=== PATIENT | female | born 1950 | race Caucasian/White ===

== ENCOUNTER 2024-03-26 09:39 | Inpatient (IN) | payer MEDICARE, MEDICAID, SELFPAY ==
[2024-03-26] VITALS (28 sets, daily range): BP systolic 90–154; BP diastolic 31–66; PULSE 72–93; RESP 16–29; TEMP 36.3–36.8; O2SAT 90–98; BMI 23.4
--- NOTE | ~2024-03-26 | US_ITS ---
EXAMINATION: US ABDOMEN LIMITED CLINICAL INFORMATION: Elevated LFTs. COMPARISON: None available. TECHNIQUE: Real-time imaging of the right upper quadrant abdominal viscera. FINDINGS: PANCREAS: Not visualized due to overlying bowel gas LIVER: Diffuse increased echogenicity. No discrete lesion. The liver is normal in size. The liver contour is normal. No focal hepatic lesion. There is no intrahepatic biliary duct dilatation seen. GALLBLADDER: Gallstones. No inflammatory changes. No sonographic Nam's sign. COMMON BILE DUCT: Normal in caliber measuring 0.2 cm in diameter. RIGHT KIDNEY: Atrophic No hydronephrosis. No renal calculi or focal parenchymal lesions. The kidney measures 7.3 cm in maximum dimension. FREE FLUID: None. US/US abdomen limited IMPRESSION: 1. Gallstones without acute inflammatory changes. No biliary ductal dilatation. Changes of hepatic steatosis. 2. Pancreas not visualized due to overlying bowel gas. 3. Atrophic right kidney. Electronically signed by: Rj Hopper MD 03/26/2024 07:34 PM [facility]
--- NOTE | ~2024-03-26 | XR_ITS ---
EXAMINATION: XR CHEST CLINICAL INFORMATION: Shortness of breath. COMPARISON: Most recent chest radiograph dated 03/26/2024. TECHNIQUE: Frontal view of the chest was obtained. FINDINGS: Diffuse interstitial prominence with patchy bilateral airspace opacities, increased within the bilateral upper lobes when compared to the prior examination. Trace left-sided pleural effusion, unchanged. No right-sided pleural effusion. No pneumothorax. Stable cardiomediastinal silhouette. XR/XR chest 1V IMPRESSION: Diffuse interstitial prominence with patchy bilateral airspace opacities, increased within the bilateral upper lobes when compared to the prior examination. Trace left-sided pleural effusion, unchanged. Electronically signed by: Brown Martínez MD 04/01/2024 02:43 PM [facility]
--- NOTE | ~2024-03-26 | XR_ITS ---
EXAMINATION: XR CHEST CLINICAL INFORMATION: Tachypnea. COMPARISON: Prior chest radiographs, most recently 04/01/2024. TECHNIQUE: Frontal view of the chest was obtained. FINDINGS: Accounting for patient rotation, the heart, great vessels, pulmonary vasculature and mediastinum are stable. There is a bilateral interstitial appearance with bat wing appearance. This is stable from the comparison examination of the same day. A small left pleural effusion is seen. No right pleural effusion is seen. There is no pneumothorax. No acute osseous abnormality is seen. There is bony demineralization. XR/XR chest 1V IMPRESSION: 1. There is a stable bilateral interstitial pattern, with appearance favoring moderate pulmonary edema. A bilateral pneumonia and ARDS are less likely differential considerations. Please correlate clinically. Recommend radiographic follow-up to full clearance. 2. A small left pleural effusion is seen. Electronically signed by: Scott Holden MD 04/01/2024 10:16 PM [facility]
--- NOTE | ~2024-03-26 | XR_ITS ---
EXAMINATION: XR CHEST CLINICAL INFORMATION: Shortness of breath COMPARISON: Chest radiograph dated 07/29/2019 TECHNIQUE: Frontal view of the chest was obtained. FINDINGS: Patchy airspace opacities in the bilateral lower lobes, greater on the left. Increased interstitial lung markings throughout both lungs. Trace left pleural effusion. No pneumothorax. The cardiac silhouette is normal in size. Atheromatous aortic knob. No acute osseous abnormality. XR/XR chest 1V IMPRESSION: 1. Patchy airspace opacities in the bilateral lower lobes, greater on the left, may represent atelectasis or infectious/inflammatory process. 2. Increased interstitial lung markings throughout both lungs, which may represent pulmonary edema. 3. Trace left pleural effusion. Electronically signed by: Winsome De La Torre MD 03/26/2024 01:13 PM [facility]
--- NOTE | ~2024-03-26 | XR_ITS ---
EXAMINATION: XR CHEST CLINICAL INFORMATION: pulm effusion COMPARISON: X-ray dated April 01, 2024. TECHNIQUE: Frontal view of the chest was obtained. FINDINGS: Prominence of the interstitial markings patchy and confluent opacities in the upper lobes. Haziness in the lower hemithoraces. No pneumothorax. Indistinct margins in the cardiac mediastinal silhouette. Calcified plaque thoracic aortic arch. Osteopenia versus osteoporosis. Multilevel thoracic spondylosis. XR/XR chest 1V IMPRESSION: Pulmonary edema and bilateral small to pleural effusions. Superimposed multifocal pneumonia cannot be excluded. Electronically signed by: Wes Ga MD 04/04/2024 11:46 AM EST
--- NOTE | 2024-03-26 10:01 | ECG_ITS ---
Test Reason : SOB Blood Pressure : / mmHG Vent. Rate : 070 BPM Atrial Rate : 070 BPM P-R Int : 174 ms QRS Dur : 086 ms QT Int : 412 ms P-R-T Axes : 026 -17 049 degrees QTc Int : 444 ms Normal sinus rhythm Septal infarct (cited on or before 29-JUL-2019) Abnormal ECG When compared with ECG of 29-JUL-2019 04:58, Previous ECG has undetermined rhythm, needs review Questionable change in initial forces of Septal leads ST less depressed in Lateral leads Nonspecific T wave abnormality, worse in Lateral leads Referred By: Demar Erazo Electronically Signed By:RAMSES PATEL MD
--- NOTE | 2024-03-26 10:05 | ED_ITS ---
HPI - SOB/Dyspnea General Chief Complaint: Dyspnea Stated Complaint: DIFFICULTY BREATHNG Time Seen by Provider: 03/26/24 09:52 Source: patient and EMS Mode of arrival: EMS Limitations: physical limitation History of Present Illness ED Provider: DR. Erazo HPI Narrative: 73-year-old female came in by ambulance for shortness of breath and hypoxic in the 80s on room air from the senior living, patient is complaining of shortness of breath, no fever, no chills patient is a poor historian however she said never had history of lung disease in the past, patient vomited twice at the senior living yesterday with a concern of aspiration pneumonia. EMS reported O2 sat of 86 % on room air in the emergency department patient improved with 2 L of nasal cannula to 92 %. Related Data Allergies Allergy/AdvReac Type Severity Reaction Status Date / Time tuberculin, purified protein Allergy Unknown UNK Unverified 03/26/24 12:11 deriva [TB TEST] aspirin [ASA] AdvReac Unknown GI UPSET, Unverified 02/02/20 17:19 stomach upset Review of Systems 2 Review of Systems: All other systems are reviewed and are negative Constitutional: Reports as per HPI and Reports no additional constitutional complaints Eyes: Reports as per HPI and Reports no additional eye complaints Reports system reviewed and no additional complaints, except as documented Cardiovascular: Reports as per HPI and Reports no additional cardiovascular complaints Respiratory: Reports as per HPI and Reports no additional respiratory complaints Gastrointestinal: Reports as per HPI and Reports no additional gastrointestinal complaints Genitourinary: Reports no additional female genitourinary complaints Musculoskeletal: Reports no additional musculoskeletal complaints Skin/Breast: Reports system reviewed and no additional complaints, except as docu Psychiatric: Reports no additional psychiatric complaints Endocrine: Reports no additional endocrine complaints Hematologic/Lymphatic: Reports no additional hematologic/lymphatic complaints Allergic/Immunologic: Reports no additional allergic/immunologic complaints Reports system reviewed and no additional complaints, except as documented and Reports Abnormal speech present [facility] Social History Social History Smoked in Last 30 Days: No Use of substances other than those prescribed or required for medical reasons: No Advance Directives: No Advance Directives Information Provided: No Physical Exam 2 Vital Signs: Vital Signs: Last Vital Signs Temp 97.6 F 03/26/24 13:01 Pulse 85 03/26/24 13:01 Resp 29 H 03/26/24 13:01 BP 138/50 L 03/26/24 13:15 Pulse Ox 91 L 03/26/24 13:01 O2 Del Method Nasal Cannula 03/26/24 13:01 O2 Flow Rate 4 03/26/24 13:01 BMI result Body Mass Index 23.4 Vital signs have been reviewed and appear to be correct. Blood pressure elevated. Heart rate normal. Respiratory rate normal. Temperature normal. Oxygen saturation normal. Appearance: Alert. Oriented X3. No acute distress. Head: Normal external exam. Normocephalic. Atraumatic. No Gates signs noted. No raccoon eyes noted Eyes: PERRLA. EOMI. Conjunctiva and sclera normal. Eyelids normal. ENT: TM's Normal. Pharynx normal. Uvula midline. Moist mucous membranes. No trismus noted. No drooling noted. No muffled voice noted. Neck: Normal inspection. Neck supple. FROM. No adenopathy. Thyroid Normal. No meningeal signs. No neck mass noted. CVS: Normal heart rate and rhythm. Heart sound normal. No murmurs noted. Pulses normal throughout. Respiratory: No respiratory distress. Painless inspiration. Diminished breathing sounds bilaterally, prolonged expiration with expiratory wheezing, Chest nontender. No accessory muscle usage noted or decreased air movement noted. Abdomen: Soft and nontender. Bowel sounds normal in all 4 quadrants. No distention noted. No organomegaly noted. No visible injury noted. Rectal exam: Brown stool trace guaiac positive. Back: No CVA tenderness. Full range of motion noted. Skin: Skin warm and dry. Normal skin color. Normal skin turgor. No rashes/lesions/lacerations noted. Extremities: No lower extremity edema. Extremities exhibit normal range of motion. Extremities nontender. Neuro: Oriented X 3. Cranial nerve exam: II-XII are grossly intact No motor deficit. No sensory deficit. Reflexes normal. Course Reevaluation(s) Reevaluation #1: FOCUSED EXAM: a 73-year-old female brought in from senior living with hypoxia and difficulty breathing, vomited yesterday at the senior living likely aspiration pneumonia, patient became hypotensive received 30 cc/kg, lactic acidosis above 5, hypoxic improving with 5 L of oxygen, severe anemia, guaiac positive but brown stool. 1. Antibiotic ceftriaxone and doxycycline. 2. Continue hydration and serial lactic acid. 3. Blood transfusion for severe anemia. 4.Continue with 5 L supplemental oxygen. 5. Cautious diuresis 6. ICU admission case discussed with Dr. Essie Clarke. Time: 13:46 Medications Administered Discontinued Medications Generic Name Dose Route Start Last Admin Trade Name Freq PRN Reason Stop Dose Admin Ceftriaxone Sodium 1 gm 03/26/24 10:01 03/26/24 11:18 Ceftriaxone Sodium 1 Gm Vial IVPUSH 03/26/24 10:02 1 gm ONCE ONE Administration Albuterol Sulfate 2.5 mg/ 0 mg 03/26/24 10:20 03/26/24 10:27 Albuterol/Ipratropium 3 ml INHALE 03/26/24 10:21 5 dose ONCE ONE Administration Furosemide 20 mg 03/26/24 11:52 03/26/24 12:12 Furosemide 20 Mg/2 Ml Vial IVPUSH 03/26/24 11:53 20 mg ONCE ONE Administration Protocol Furosemide 20 mg 03/26/24 13:14 03/26/24 13:15 Furosemide 20 Mg/2 Ml Vial IVPUSH 03/26/24 13:15 20 mg ONCE ONE Administration Protocol Doxycycline Hyclate 100 mg/ 250 mls @ 166.67 mls/hr 03/26/24 10:01 03/26/24 12:51 Sodium Chloride IV 03/26/24 11:30 Infused ONCE ONE Infusion Magnesium Sulfate 2 gm in 50 mls @ 25 mls/hr 03/26/24 10:03 03/26/24 12:00 Magnesium Sulfate/H2o IV 03/26/24 12:02 Infused ONCE ONE Infusion Sodium Chloride 1,740 mls @ 1,740 mls/hr 03/26/24 10:52 03/26/24 12:22 Ns 30 ml/kg infuse over 1 hr (1740 ml) 03/26/24 11:51 Infused IV Infusion .Q1H STA Methylprednisolone Sodium Succinate 125 mg 03/26/24 10:03 03/26/24 10:20 Methylprednisolone Sod Succ 125 Mg/2 Ml Vial IVPUSH 03/26/24 10:04 125 mg ONCE ONE Administration Medical Decision Making Differential Diagnosis Differential Diagnoses: The differential diagnosis associated with the presentation includes ( Sepsis, pneumonia, anemia, electrolyte derangement, hypoxia, aspiration pneumonia, viral infection, bacteremia, lactic acidosis.) Admission/Observation Consideration of admission/observation: Escalation of care including admission/observation considered Consult Healthcare Provider Management of the patient was discussed with: Senior Contracts Administrator ( Dr. Essie Clarke) Lab Data MDM Lab Attestation statement: I reviewed the patient's lab results. 03/26/24 11:16 03/26/24 10:38 Labs: Lab Results 03/26/24 03/26/24 03/26/24 Range/Units 10:38 11:16 11:35 WBC 8.5 (4.8-10.8) X10*3/uL RBC 2.12 L (4.20-5.50) X10*6/uL Hgb 5.6 L* (12.0-16.0) g/dl Hct 18.6 L* (37.0-47.0) % MCV 87.7 (80.0-98.0) fL MCH 26.4 L (27.0-33.0) pg MCHC 30.1 L (31.0-35.0) g/dl RDW 14.6 (11.0-16.0) % Plt Count 431 H (160-400) X10*3/uL MPV 11.3 (9.4-12.3) fL Immature Gran % (Auto) 0.2 (0.0-0.4) % Neut % (Auto) 80.5 H (45-73) % Lymph % (Auto) 11.0 L (20-40) % [place] % (Auto) 8.1 (2-11) % Eos % (Auto) 0.0 (0-4) % Baso % (Auto) 0.2 (0-2) % Lymph # (Auto) 0.9 L (1.2-4.9) X10*3/uL [place] # (Auto) 0.7 (0.1-1.2) X10*3/uL Eos # (Auto) 0.0 (0.0-0.4) X10*3/uL Baso # (Auto) 0.0 (0.0-0.2) X10*3/uL Abs Immat Gran (auto) 0.02 (0.00-0.03) X10*3/uL Absolute Neuts (auto) 6.9 (2.0-8.3) x10*3/uL Absolute Nucleated RBC 0.120 H (0.0-0.012) X10*3/uL Nucleated RBC % (auto) 1.4 H (0.0-0.2) /100WBC Sodium 135 (135-145) mmol/L Potassium 4.5 (3.3-5.1) mmol/L Chloride 104 (96-108) mmol/L Carbon Dioxide 16 L (22-29) mmol/L Anion Gap 20 (12-20) BUN 16 (9-16) mg/dL Creatinine 0.99 (0.5-1.4) mg/dL Estim Creat Clear Calc 40.5 Estimated GFR 55 Random Glucose 136 H (60-115) mg/dL Lactic Acid 5.1 H* (0.5-2.0) mmol/L Lactic Acid F/U @ 2Hr (0.5-2.0) mmol/L Calcium 9.3 (8.4-10.2) mg/dL Total Bilirubin 0.6 (0.0-1.0) mg/dL Direct Bilirubin 0.3 (0.0-0.5) mg/dL AST 220 H (5-31) U/L ALT 183 H (0-31) U/L Alkaline Phosphatase 56 (39-117) U/L Troponin I High Sens 30.6 H (<3.5-17.0) ng/L B-Natriuretic Peptide 1277 H (<100) pg/mL Total Protein 6.9 (6.5-8.0) g/dL Albumin 3.9 (3.5-5.0) g/dL Lipase 25 (8-78) U/L Stool Occult Blood (NEGATIVE) Influenza Type A (PCR) NEGATIVE (Negative) Influenza Type B (PCR) NEGATIVE (Negative) RSV RNA Qual (PCR) NEGATIVE (Negative) SARS-CoV-2 RNA (RT-PCR) NEGATIVE (Negative) Blood Type Antibody Screen Crossmatch 03/26/24 03/26/24 03/26/24 Range/Units 11:50 11:53 12:57 WBC (4.8-10.8) X10*3/uL RBC (4.20-5.50) X10*6/uL Hgb (12.0-16.0) g/dl Hct (37.0-47.0) % MCV (80.0-98.0) fL MCH (27.0-33.0) pg MCHC (31.0-35.0) g/dl RDW (11.0-16.0) % Plt Count (160-400) X10*3/uL MPV (9.4-12.3) fL Immature Gran % (Auto) (0.0-0.4) % Neut % (Auto) (45-73) % Lymph % (Auto) (20-40) % [place] % (Auto) (2-11) % Eos % (Auto) (0-4) % Baso % (Auto) (0-2) % Lymph # (Auto) (1.2-4.9) X10*3/uL [place] # (Auto) (0.1-1.2) X10*3/uL Eos # (Auto) (0.0-0.4) X10*3/uL Baso # (Auto) (0.0-0.2) X10*3/uL Abs Immat Gran (auto) (0.00-0.03) X10*3/uL Absolute Neuts (auto) (2.0-8.3) x10*3/uL Absolute Nucleated RBC (0.0-0.012) X10*3/uL Nucleated RBC % (auto) (0.0-0.2) /100WBC Sodium (135-145) mmol/L Potassium (3.3-5.1) mmol/L Chloride (96-108) mmol/L Carbon Dioxide (22-29) mmol/L Anion Gap (12-20) BUN (9-16) mg/dL Creatinine (0.5-1.4) mg/dL Estim Creat Clear Calc Estimated GFR Random Glucose (60-115) mg/dL Lactic Acid (0.5-2.0) mmol/L Lactic Acid F/U @ 2Hr 7.3 H* (0.5-2.0) mmol/L Calcium (8.4-10.2) mg/dL Total Bilirubin (0.0-1.0) mg/dL Direct Bilirubin (0.0-0.5) mg/dL AST (5-31) U/L ALT (0-31) U/L Alkaline Phosphatase (39-117) U/L Troponin I High Sens (<3.5-17.0) ng/L B-Natriuretic Peptide (<100) pg/mL Total Protein (6.5-8.0) g/dL Albumin (3.5-5.0) g/dL Lipase (8-78) U/L Stool Occult Blood POSITIVE (NEGATIVE) Influenza Type A (PCR) (Negative) Influenza Type B (PCR) (Negative) RSV RNA Qual (PCR) (Negative) SARS-CoV-2 RNA (RT-PCR) (Negative) Blood Type A Positive Antibody Screen NEGATIVE Crossmatch See Detail Independent Interpretation I performed an independent interpretation of an: Plain X-Ray ( chest:1. Patchy airspace opacities in the bilateral lower lobes, greater on the left, may represent atelectasis or infectious/inflammatory process. 2. Increased interstitial lung markings throughout both lungs, which may represent pulmonary edema. 3. Trace left pleural effusion. ) Critical Care Time Critical Care Time Critical Care Time: Yes Total Critical Care Time: 60 Attestation: The patient was critically ill with a high probability of imminent or life- threatening deterioration. I spent greater than 30 minutes of discontinuous time evaluating the patient, delivering critical care at the bedside, discussing evaluating data with consultants. Critical care time does not include time spent performing separately billable procedures or teaching. Time spent performing critical care was 60 minutes. Discharge Plan Discharge Clinical Impression: Pneumonia, Acute lactic acidosis, Septic shock, Anemia Patient Disposition: Admitted As Inpatient Print Language: Rosales
[2024-03-26] MEDS: methylPREDNISolone Sod Succ 125 MG/2 ML VIAL IVPUSH (10:20)
[2024-03-26] MEDS: Magnesium Sulfate/H2O 2 GM/50 ML PIGGYBACK IV (10:20)
[2024-03-26] MEDS: Albuterol Sulfate 2.5 MG, Albuterol/Iprat 2.5/0.5MG 3 ML 3 ML INHALE (10:27)
--- NOTE | 2024-03-26 10:44 | PC.NURSE ---
Pt presents via EMS from [facility], per EMS pt was found to be hypoxic and SOB by staff (86% RA). Pt had 2 episodes of vomiting yest per staff, they are worried she aspirated. Confused at baseline, hx of dementia. EMS gave duo neb with improvements. Pt alert but confused, breathing labored, wheezing noted. Skin pale and cool. 88% on RA, placed on 2L O2 NC with improvements. NSR on cardiac care unit nurse. No fever noted. RT at bedside giving rx.
[2024-03-26] MEDS: SODIUM CHLORIDE 1740 ML IV (10:55)
--- NOTE | 2024-03-26 10:57 | PC.NURSE ---
Pt very hard stick, multiple techs attempting. BP soft, provider aware and fluids infusing now
[2024-03-26 11:01] LABS: Alanine Aminotransferase 183 U/L (0-31); Albumin Level 3.9 g/dL (3.5-5.0); Alkaline Phosphatase 56 U/L (39-117); Anion Gap 20 (12-20); Aspartate Amino Transferase 220 U/L (5-31); Bilirubin Direct 0.3 mg/dL (0.0-0.5); Bilirubin Total 0.6 mg/dL (0.0-1.0); Blood Urea Nitrogen 16 mg/dL (9-16); Calcium 9.3 mg/dL (8.4-10.2); Carbon Dioxide 16 mmol/L (22-29); Chloride 104 mmol/L (96-108); Creatinine Clr Calc Pharmacy 40.5; Estimated Glomerular Filt Rate 55; Glucose Random 136 mg/dL (60-115); Lipase 25 U/L (8-78); Potassium 4.5 mmol/L (3.3-5.1); Sodium 135 mmol/L (135-145); Total Protein 6.9 g/dL (6.5-8.0)
[2024-03-26] MEDS: cefTRIAXone sodium 1 GM VIAL IVPUSH (11:18)
[2024-03-26] MEDS: Doxycycline Hyclate 100 MG in 0.9 % Sodium Chloride 250 ML 166.67 MG IV (11:19)
[2024-03-26 11:23] LABS: Lactic Acid 5.1 mmol/L (0.5-2.0)
[2024-03-26 11:25] LABS: MANUAL DIFF FLAG NO
[2024-03-26 11:26] LABS: Influenza A PCR NEGATIVE (Negative); Influenza B PCR NEGATIVE (Negative); Resp Syncy Virus RNA Qual PCR NEGATIVE (Negative); SARS COV2 PCR INHOUSE NEGATIVE (Negative)
[2024-03-26 11:30] LABS: Basophils Percent Auto 0.2 % (0-2); Imm Gran Abs Auto 0.02 X10*3/uL (0.00-0.03); Imm Gran Pct Auto 0.2 % (0.0-0.4); Lymphocytes Absolute Auto 0.9 X10*3/uL (1.2-4.9); Mean Corpuscular HGB Conc 30.1 g/dl (31.0-35.0); Mean Corpuscular Hemoglobin 26.4 pg (27.0-33.0); Mean Corpuscular Volume 87.7 fL (80.0-98.0); Mean Platelet Volume 11.3 fL (9.4-12.3); Monocytes Absolute Auto 0.7 X10*3/uL (0.1-1.2); Monocytes Percent Auto 8.1 % (2-11); Neutrophils Absolute Auto 6.9 x10*3/uL (2.0-8.3); Neutrophils Percent Auto 80.5 % (45-73); Platelet Count 431 X10*3/uL (160-400); Red Blood Count 2.12 X10*6/uL (4.20-5.50); Red Cell Distribution Width 14.6 % (11.0-16.0); White Blood Count 8.5 X10*3/uL (4.8-10.8)
[2024-03-26 11:34] LABS: Hemoglobin 5.6 g/dl (12.0-16.0)
[2024-03-26 11:35] LABS: Hematocrit 18.6 % (37.0-47.0); NRBC Pct Auto 1.4 /100WBC (0.0-0.2)
[2024-03-26 11:46] LABS: B Type Natriuretic Peptide 1277 pg/mL (<100)
[2024-03-26 12:00] LABS: Troponin-I High Sensitivity 30.6 ng/L (<3.5-17.0)
[2024-03-26 12:02] LABS: OBS Int Ctl Valid YES; OBS1 POSITIVE (NEGATIVE)
[2024-03-26] MEDS: Furosemide 20 MG/2 ML VIAL IVPUSH ×2 (12:12→13:15)
[2024-03-26 12:42] LABS: Reflex Lactate? Lactic Acid Added
--- NOTE | 2024-03-26 13:02 | PC.NURSE ---
Blood started with 2 RNs verfiying. This RN remained in room. Pt noted to become more tachypneic and SPO2 dropping to 88% on 2L, titrated up on NC and RT called to bedside. notified.
--- NOTE | 2024-03-26 13:14 | PC.NURSE ---
Blood infusing at slowest rate possible for time limit. Plan per MD is to give another dose of lasix
[2024-03-26 13:18] LABS: ~Lactic Acid-LAB USE ONLY 7.3 mmol/L (0.5-2.0)
--- NOTE | 2024-03-26 13:38 | PC.NURSE ---
Pt cleaned by tech, brief full of urine. Purwick placed for urine incontinence.
--- NOTE | 2024-03-26 13:50 | P.HPCC_ITS ---
History of Present Illness Date of Service: 03/26/24 <Essie Clarke MD - Last Filed: 03/27/24 08:15> Chief Complaint: Dyspnea <Essie Clarke MD - Last Filed: 03/27/24 08:15> Patient is a 73 Y F presenting to emergency department from shelter on 03/26 w/ dyspnea, c/f aspiration the previous day; of note, per EMS, patient found to be hypoxic 80s; in emergency department, patient found to be also hypotensive w/ improvement w/ IVF; work-up demonstrated chest x-ray suggestive of pneumonia, lactic acidosis, transaminitis, and troponinemia, concerning for sepsis, as well as anemia; patient admitted to ICU for further management < Essie Clarke MD - Last Filed: 03/27/24 08:15> Review of Systems 2 Review of Systems: Yes all other systems are reviewed and are negative < Essie Clarke MD - Last Filed: 03/27/24 08:15> [facility] Social History Social History: Social History Household Members: Unknown / Unable to assess Housing: Group Home Patient Tobacco Use Status: Former Tobacco user Tobacco use type: Cigarette Smoked in Last 30 Days: No e-Cigarette/Vaping Use: Never Used Patient Interested in Nicotine Replacement: No Patient Given Instructions on How to Stop Smoking: No Second Hand Smoke Exposure: No Use of substances other than those prescribed or required for medical reasons: Unknown Currently Displaying Signs/Symptoms of Drug Intoxication Withdrawal: No Have you been hit, kicked, punched, or otherwise hurt by someone within the past year? If so, by whom?: No Do you feel safe in your current relationship?: No Current Relationship Is there a partner from a previous relationship who is making you feel unsafe now?: No Are you made to feel afraid or neglected: No Confucianism Healthcare Practices: none Advance Directives: No Advance Directives Information Provided: No Advance Directives on File: No Do you have a plan to hurt others: No Plan Recently lost weight without trying: Unsure Patient : No : No Poor oral hygiene: No <Essie Clarke MD - Last Filed: 03/27/24 08:15> Meds Allergies/Adverse reactions: Allergies Allergy/AdvReac Type Severity Reaction Status Date / Time tuberculin, purified protein Allergy Unknown UNK Unverified 03/26/24 12:11 deriva [TB TEST] aspirin [ASA] AdvReac Unknown GI UPSET, Unverified 02/02/20 17:19 stomach upset <Essie Clarke MD - Last Filed: 03/27/24 08:15> Active Medications: Current Medications Cefepime HCl (Maxipime) 2 gm in 50 mls @ 100 mls/hr IV Q12H [facility] Pharmacy Consult (Consult Rx Vancomycin Dosing) 1 each MISCELLANE DAILY PRN PRN Reason: Consult order <Essie Clarke MD - Last Filed: 03/27/24 08:15> Home medications: Home Medications ?Medication ?Instructions ?Recorded ?Confirmed ?Last Taken ?Type acetaminophen 325 mg tablet 650 mg PO Q6H PRN pain or fever 03/26/24 03/26/24 Unknown History amlodipine 5 mg tablet 5 mg PO DAILY 03/26/24 03/26/24 Unknown History apixaban 5 mg tablet (Eliquis) 5 mg PO BID 03/26/24 03/26/24 03/25/24 19:00 History atorvastatin 80 mg tablet 80 mg PO BEDTIME 03/26/24 03/26/24 Unknown History bisacodyl 10 mg rectal suppository 10 mg NV DAILY PRN Constipation 03/26/24 03/26/24 Unknown History cholecalciferol (vitamin D3) 25 25 mcg PO DAILY 03/26/24 03/26/24 Unknown History mcg (1,000 unit) tablet clotrimazole 1 % topical cream 1 appl topical DAILY PRN Rash 03/26/24 03/26/24 Unknown History esomeprazole magnesium 40 mg 40 mg PO DAILY 03/26/24 03/26/24 Unknown History capsule,delayed release ferrous sulfate 325 mg (65 mg 325 mg PO DAILY 03/26/24 03/26/24 Unknown History iron) tablet folic acid 1 mg tablet 1 mg PO DAILY 03/26/24 03/26/24 Unknown History gabapentin 100 mg capsule 100 mg PO BEDTIME 03/26/24 03/26/24 Unknown History loperamide 2 mg capsule 2 mg PO Q6H PRN Loose Stool 03/26/24 03/26/24 Unknown History melatonin 5 mg tablet 10 mg PO BEDTIME 03/26/24 03/26/24 Unknown History metformin 500 mg tablet 500 mg PO BID 03/26/24 03/26/24 Unknown History metoprolol tartrate 25 mg tablet 75 mg PO BID 03/26/24 03/26/24 Unknown History omega 9-aex-jrz-fish oil 1,000 mg 1 cap PO DAILY 03/26/24 03/26/24 Unknown History (120 mg-180 mg) capsule (Fish Oil) sennosides 8.6 mg tablet (senna) 8.6 mg PO DAILY 03/26/24 03/26/24 Unknown History sertraline 50 mg tablet 100 mg PO DAILY 03/26/24 03/26/24 Unknown History sodium phosphates 19 gram-7 118 ml NV DAILY PRN Constipation 03/26/24 03/26/24 Unknown History gram/118 mL enema (Fleet Enema) spironolactone 25 mg tablet 25 mg PO DAILY 03/26/24 03/26/24 Unknown History trazodone 50 mg tablet 50 mg PO BEDTIME 03/26/24 03/26/24 Unknown History <Essie Clarke MD - Last Filed: 03/27/24 08:15> Physical Exam 2 Vital Signs: Vital Signs: Last Vital Signs Temp 97.6 F 03/26/24 13:01 Pulse 85 03/26/24 13:01 Resp 29 H 03/26/24 13:01 BP 138/50 L 03/26/24 13:15 Pulse Ox 91 L 03/26/24 13:01 O2 Del Method Nasal Cannula 03/26/24 13:01 O2 Flow Rate 4 03/26/24 13:01 BMI result Body Mass Index 23.4 <Essie Clarke MD - Last Filed: 03/27/24 08:15> Const: General: no acute distress and alert <Olive Wilde NP - Last Filed: 03/26/24 20:47> Orientation/consciousness: oriented to person <Olive Wilde NP - Last Filed: 03/26/24 20:47> HEENT: Head: Yes normocephalic and Yes atraumatic <Olive Wilde NP - Last Filed: 03/26/24 20:47> General nose exam: Normal external nose present (Nares patent, septum midline, sinuses nontender bilaterally.) <Olive Wilde NP - Last Filed: 03/26/24 20:47> Mouth: Normal oral and palatal mucosa present (No thrush, tongue in midline, mucosa moist.) <LOREN Watson Last Filed: 03/26/24 20:47> Throat: Yes other (No erythema, no exudate.) <Olive Wilde NP - Last Filed: 03/26/24 20:47> Neck: Neck: Yes supple (no thyromegaly, trachea midline.) <Olive Wilde NP - Last Filed: 03/26/24 20:47> Carotids: normal carotid upstroke <LOREN Watson Last Filed: 03/26/24 20:47> Resp: Effort & Inspection: normal respiratory effort and no respiratory distress <LOREN Watson Last Filed: 03/26/24 20:47> Auscultation: no rales, no rhonchi, no wheezes and diminished lung sounds bilateral in the lower lung florez <LOREN Watson Last Filed: 03/26/24 20:47> Cardio: Jugular venous distension: no JVD <LOREN Watson Last Filed: 03/26/24 20:47> Rate: regular rate <LOREN Watson Last Filed: 03/26/24 20:47> Rhythm: regular rhythm <LOREN Watson Last Filed: 03/26/24 20:47> Heart sounds: no gallops, no murmurs and no rubs <LOREN Watson Last Filed: 03/26/24 20:47> Peripheral pulses: Peripheral pulses 2+ throughout <LOREN Watson Last Filed: 03/26/24 20:47> GI: Palpation (GI): Soft to palpation (nondistended.) and nontender < LOREN Watson Last Filed: 03/26/24 20:47> Skin: General skin exam: no rashes or lesions noted and turgor normal < LOREN Watson Last Filed: 03/26/24 20:47> Wounds: no wounds <LOREN Watson Last Filed: 03/26/24 20:47> Neuro: General: oriented to person <Olive Wilde NP - Last Filed: 03/26/24 20:47> Cranial nerves: Yes CN's II-XII intact bilaterally <Olive Wilde NP - Last Filed: 03/26/24 20:47> Extrem: General: Yes full ROM, Yes capillary refill normal and Yes no clubbing, cyanosis or edema <Olive Wilde NP - Last Filed: 03/26/24 20:47> Psych: Appearance: well kempt <Olive Wilde NP - Last Filed: 03/26/24 20:47> Affect: Blunted affect present <Olive Wilde NP - Last Filed: 03/26/24 20:47> Attitude: cooperative <Olive Wilde NP - Last Filed: 03/26/24 20:47> Results Labs CBC and Chem 7: 03/27/24 05:17 03/27/24 05:17 <Essie Clarke MD - Last Filed: 03/27/24 08:15> Labs: Laboratory Results - last 24 hr 03/26/24 03/26/24 03/26/24 10:38 11:16 11:35 MCV 87.7 MCH 26.4 L MCHC 30.1 L RDW 14.6 Plt Count 431 H MPV 11.3 Immature Gran % (Auto) 0.2 Neut % (Auto) 80.5 H Lymph % (Auto) 11.0 L Crawford % (Auto) 8.1 Eos % (Auto) 0.0 Baso % (Auto) 0.2 Lymph # (Auto) 0.9 L Crawford # (Auto) 0.7 Eos # (Auto) 0.0 Baso # (Auto) 0.0 Abs Immat Gran (auto) 0.02 Absolute Neuts (auto) 6.9 Absolute Nucleated RBC 0.120 H Nucleated RBC % (auto) 1.4 H Anion Gap 20 Estim Creat Clear Calc 40.5 Estimated GFR 55 Random Glucose 136 H Lactic Acid 5.1 H* Lactic Acid F/U @ 2Hr Calcium 9.3 Total Bilirubin 0.6 Direct Bilirubin 0.3 AST 220 H ALT 183 H Alkaline Phosphatase 56 Troponin I High Sens 30.6 H B-Natriuretic Peptide 1277 H Total Protein 6.9 Albumin 3.9 Lipase 25 Stool Occult Blood Influenza Type A (PCR) NEGATIVE Influenza Type B (PCR) NEGATIVE RSV RNA Qual (PCR) NEGATIVE SARS-CoV-2 RNA (RT-PCR) NEGATIVE Blood Type Antibody Screen Crossmatch 03/26/24 03/26/24 03/26/24 11:50 11:53 12:57 MCV MCH MCHC RDW Plt Count MPV Immature Gran % (Auto) Neut % (Auto) Lymph % (Auto) Crawford % (Auto) Eos % (Auto) Baso % (Auto) Lymph # (Auto) Crawford # (Auto) Eos # (Auto) Baso # (Auto) Abs Immat Gran (auto) Absolute Neuts (auto) Absolute Nucleated RBC Nucleated RBC % (auto) Anion Gap Estim Creat Clear Calc Estimated GFR Random Glucose Lactic Acid Lactic Acid F/U @ 2Hr 7.3 H* Calcium Total Bilirubin Direct Bilirubin AST ALT Alkaline Phosphatase Troponin I High Sens B-Natriuretic Peptide Total Protein Albumin Lipase Stool Occult Blood POSITIVE Influenza Type A (PCR) Influenza Type B (PCR) RSV RNA Qual (PCR) SARS-CoV-2 RNA (RT-PCR) Blood Type A Positive Antibody Screen NEGATIVE Crossmatch See Detail <Essie Clarke MD - Last Filed: 03/27/24 08:15> Imaging Radiologist's Impressions: Impressions Chest X-Ray 03/26/24 11:30 IMPRESSION: 1. Patchy airspace opacities in the bilateral lower lobes, greater on the left, may represent atelectasis or infectious/inflammatory process. 2. Increased interstitial lung markings throughout both lungs, which may represent pulmonary edema. 3. Trace left pleural effusion. Electronically signed by: Winsome De La Torre MD 03/26/2024 01:[address] [facility] <Essie Clarke MD - Last Filed: 03/27/24 08:15> Assessment and Plan (1) Pneumonia: Qualifiers: Pneumonia type: aspiration pneumonia <Essie Clarke MD - Last Filed: 03/27/24 08:15> Status: Acute <Essie Clarke MD - Last Filed: 03/27/24 08:15> (2) Sepsis: Qualifiers: Acute respiratory failure type: with hypoxia Severe sepsis shock status: unspecified <Essie Clarke MD - Last Filed: 03/27/24 08:15> Status: Acute <Essie Clarke MD - Last Filed: 03/27/24 08:15> (3) Anemia: Status: Acute <Essie Clarke MD - Last Filed: 03/27/24 08:15> Patient is a 73 Y F presenting to emergency department from shelter on 03/26 w/ dyspnea, c/f aspiration the previous day, found to have work-up c/f pneumonia c/b sepsis N: no acute issues CV: transient hypotension, improved s/p IVF; judicious use of IVF, norepinephrine gtt as needed; troponinemia, likely d/t demand, to monitor closely R: acute hypoxic respiratory failure, likely d/t aspiration pneumonia, NC, wean as tolerated GI: transaminitis, likely d/t sepsis, to monitor; NPO, advance diet as tolerated : c/f volume overload, judicious use of IVF, diuresis as tolerated; to monitor renal indices, electrolytes closely H: anemia, unclear etiology, transfuse as needed; to avoid apixaban, chemical DVT prophylaxis ID: c/f pneumonia, vancomycin, cefepime; to follow-up UA, BCx E: diabetes mellitus, to monitor hypo-/hyper-glycemia P: no acute issues <Essie Clarke MD - Last Filed: 03/27/24 08:15>
--- NOTE | 2024-03-26 14:05 | PHA.MEDREC ---
Addendum entered by Martha Bosch RPh 03/26/24 14:06: Reviewed by [facility] Original Note: Pharmacy Consult ? Medication Reconciliation Pharmacy has completed the medication reconciliation. Used list from [facility].
[2024-03-26] MEDS: Calcium Gluconate/NaCl,Iso-Osm 1 GM/50 ML PLAST..BAG IV (14:10)
--- NOTE | 2024-03-26 14:13 | PC.NURSE ---
RT at bedside placing pt on HFNC
--- NOTE | 2024-03-26 14:34 | PC.NURSE ---
HFNC 25L at 45%
[2024-03-26] MEDS: vancomycin HCL 1,500 MG in 0.9 % Sodium Chloride 500 ML 333.33 MG IV (14:38)
--- NOTE | 2024-03-26 14:42 | PC.NURSE ---
Per RT, pt not tolerated HFNC, placed back on oxy at 9L O2
[2024-03-26 15:00] LABS: Reflex Lactate? 2 Y
--- NOTE | 2024-03-26 15:25 | PHA.PROG ---
Admission Date/Time: March 26, 2024 13:40 Indication: Respiratory Weight in k kg Adjusted body weight in Kg: [place] body weight in Kg: Obesity Dosing Indication % IBW: BMI 23.4 Serum Creatinine - Last 168 Hours 03/26/24 10:38 Creatinine 0.99 Estimated CrCl and GFR - Last 168 Hours 03/26/24 10:38 Estim Creat Clear Calc 40.5 Estimated GFR 55 Vancomycin Loading Dose: 1500 x1 Current Vancomycin Dosing Regimen: 500 Q12H Vancomycin Monitoring using AUC goal of 400 - 600 range with trough as surrogate marker: 460 Date and Time for next Vancomycin Level to be drawn: 03/27 @1300 Pharmacist Comments on Vancomycin Plan: Patient's renal function seems stable. Predicted trough 15.8, getting random after 2 doses to make sure not over dosing, to be adjusted 03/27 based on renal function and trough. Vancomycin dosing will take advantage of [employer] as a clinical decision support tool that uses Bayesian modeling to calculate individual patient's pharmacokinetic parameters and forecast the patient's drug concentration time course with the target goal AUC 24 range of 400 - 600 mg/L/hr.
[2024-03-26 16:34] LABS: Glucose, Whole Blood 143 mg/dL (60-115)
[2024-03-26 16:39] LABS: MANUAL DIFF FLAG NO
[2024-03-26 16:43] LABS: Basophils Percent Auto 0.1 % (0-2); Hematocrit 27.7 % (37.0-47.0); Hemoglobin 8.8 g/dl (12.0-16.0); Imm Gran Abs Auto 0.04 X10*3/uL (0.00-0.03); Imm Gran Pct Auto 0.5 % (0.0-0.4); Lymphocytes Absolute Auto 0.5 X10*3/uL (1.2-4.9); Lymphocytes Percent Auto 5.5 % (20-40); Mean Corpuscular HGB Conc 31.8 g/dl (31.0-35.0); Mean Corpuscular Hemoglobin 26.6 pg (27.0-33.0); Mean Corpuscular Volume 83.7 fL (80.0-98.0); Mean Platelet Volume 10.7 fL (9.4-12.3); Monocytes Absolute Auto 0.2 X10*3/uL (0.1-1.2); Neutrophils Absolute Auto 8.2 x10*3/uL (2.0-8.3); Neutrophils Percent Auto 91.9 % (45-73); Platelet Count 425 X10*3/uL (160-400); Red Blood Count 3.31 X10*6/uL (4.20-5.50); Red Cell Distribution Width 14.9 % (11.0-16.0); SCAN SMEAR FLAG 1; White Blood Count 8.9 X10*3/uL (4.8-10.8)
[2024-03-26 16:48] LABS: NRBC Pct Auto 1.2 /100WBC (0.0-0.2)
[2024-03-26 16:54] LABS: INTERNATIONAL NORM RATIO 2.2 (0.9-1.1); Prothrombin Time 25.4 SEC (10.9-12.4)
[2024-03-26 16:59] LABS: Alanine Aminotransferase 633 U/L (0-31); Albumin Level 3.8 g/dL (3.5-5.0); Alkaline Phosphatase 56 U/L (39-117); Anion Gap 18 (12-20); Aspartate Amino Transferase 762 U/L (5-31); Bilirubin Total 1.2 mg/dL (0.0-1.0); Blood Urea Nitrogen 16 mg/dL (9-16); Calcium 8.5 mg/dL (8.4-10.2); Carbon Dioxide 16 mmol/L (22-29); Chloride 107 mmol/L (96-108); Creatinine Clr Calc Pharmacy 44.1; Estimated Glomerular Filt Rate > 60; Glucose Random 150 mg/dL (60-115); Magnesium 1.9 mg/dL (1.6-2.6); Phosphorus 3.3 mg/dL (2.7-4.5); Potassium 4.4 mmol/L (3.3-5.1); Sodium 137 mmol/L (135-145); Total Protein 6.7 g/dL (6.5-8.0)
[2024-03-26 17:03] LABS: ~Lactic Acid-LAB USE ONLY 4.6 mmol/L (0.5-2.0)
[2024-03-26 17:06] LABS: Troponin-I High Sensitivity 34.6 ng/L (<3.5-17.0)
[2024-03-26 17:21] LABS: TSH reflex Free T4 0.54 uIU/mL (0.32-4.0)
[2024-03-26] MEDS: Furosemide 40 MG/4 ML VIAL IVPUSH (20:05)
[2024-03-26] MEDS: cefEPime HCl/D5W 2 GM/50 ML PIGGYBACK IV (23:00)
[2024-03-26 23:03] LABS: Bilirubin Direct 0.6 mg/dL (0.0-0.5)
[2024-03-27] VITALS (26 sets, daily range): BP systolic 96–153; BP diastolic 33–92; PULSE 69–130; RESP 14–30; TEMP 37–37.6; O2SAT 90–99; BMI 24.2
--- NOTE | 2024-03-27 | ECG_ITS ---
Test Reason : tachycardia Blood Pressure : / mmHG Vent. Rate : 128 BPM Atrial Rate : 000 BPM P-R Int : 000 ms QRS Dur : 094 ms QT Int : 334 ms P-R-T Axes : 000 -40 109 degrees QTc Int : 487 ms Atrial fibrillation with rapid ventricular response Left axis deviation Septal infarct , age undetermined ST & T wave abnormality, consider lateral ischemia Abnormal ECG No previous ECGs available Referred By: Olive Wilde Electronically Signed By:Leonard Ramos
[2024-03-27 00:02] LABS: Glucose, Whole Blood 148 mg/dL (60-115)
[2024-03-27 00:57] LABS: Appearance Urine Clear; Color Urine Yellow; Glucose Urine UA Negative (Negative); Leukocyte Esterase Urine Negative (Negative); Nitrite Urine Negative (Negative); PH 5.5 (5.0-9.0); Urine Blood Negative (Negative); Urine Ketones Negative (Negative); Urine Protein Negative (Neg-Trace)
[2024-03-27] MEDS: vancomycin HCL 500 MG in 0.9 % Sodium Chloride 100 ML 110 MG IV (03:04)
[2024-03-27 05:51] LABS: MANUAL DIFF FLAG NO
[2024-03-27 06:08] LABS: Basophils Percent Auto 0.2 % (0-2); Eosinophils Percent Auto 0.1 % (0-4); Hemoglobin 9.9 g/dl (12.0-16.0); Imm Gran Abs Auto 0.09 X10*3/uL (0.00-0.03); Imm Gran Pct Auto 0.7 % (0.0-0.4); Lymphocytes Absolute Auto 0.8 X10*3/uL (1.2-4.9); Lymphocytes Percent Auto 6.2 % (20-40); Mean Corpuscular Hemoglobin 27.1 pg (27.0-33.0); Mean Corpuscular Volume 82.2 fL (80.0-98.0); Mean Platelet Volume 11.4 fL (9.4-12.3); Monocytes Absolute Auto 0.9 X10*3/uL (0.1-1.2); Monocytes Percent Auto 6.7 % (2-11); NRBC Pct Auto 0.7 /100WBC (0.0-0.2); Neutrophils Absolute Auto 11.4 x10*3/uL (2.0-8.3); Neutrophils Percent Auto 86.1 % (45-73); Platelet Count 344 X10*3/uL (160-400); Red Blood Count 3.65 X10*6/uL (4.20-5.50); Red Cell Distribution Width 15.6 % (11.0-16.0); White Blood Count 13.3 X10*3/uL (4.8-10.8)
[2024-03-27 06:15] LABS: Anion Gap 18 (12-20); Blood Urea Nitrogen 18 mg/dL (9-16); Calcium 8.7 mg/dL (8.4-10.2); Carbon Dioxide 17 mmol/L (22-29); Chloride 106 mmol/L (96-108); Creatinine Clr Calc Pharmacy 46.2; Estimated Glomerular Filt Rate > 60; Glucose Random 134 mg/dL (60-115); Magnesium 1.7 mg/dL (1.6-2.6); Phosphorus 2.4 mg/dL (2.7-4.5); Potassium 3.3 mmol/L (3.3-5.1); Sodium 138 mmol/L (135-145)
--- NOTE | 2024-03-27 06:15 | PM.EVENT ---
Documented by User: Olive Wilde NP 03/27/24 06:15 Event Note Date of Service: 03/27/24 Event Note: One?set of blood cultures reported positive at 19 hours for Gram-positive rods. The patient presented with pneumonia, lactic acidosis, transaminitis, and troponinemia concerning for sepsis. This morning?s labs showed leukocytosis with a left shift. I've ordered a repeat set of BCs and lactate. Will continue cefepime, vancomycin and repeat blood cultures and lactate.? Time Spent With Patient Time: Total time managing care of this patient today ____ minutes. Documented by User: Essie Clarke MD 03/27/24 08:01 Event Note Date of Service: 03/27/24
[2024-03-27 07:05] LABS: Lactic Acid 1.3 mmol/L (0.5-2.0)
--- NOTE | 2024-03-27 08:15 | PM.CCPN ---
Subjective Subjective Date of Service: 03/27/24 Interval History: no significant overnight events; BCx w/ gram negative rods Critical Care Time (minutes): 60 Physical Exam Vital Signs: Vital Signs: Last Vital Signs Temp 98.8 F 03/27/24 08:00 Pulse 69 03/27/24 08:00 Resp 18 03/27/24 08:00 BP 121/41 L 03/27/24 08:00 Pulse Ox 99 03/27/24 08:00 O2 Del Method Nasal Cannula 03/27/24 06:00 O2 Flow Rate 4 03/27/24 08:00 BMI result Body Mass Index 24.2 Const: General: healthy appearing, comfortable, no acute distress, well developed, alert, awake and Physically active HEENT: Head: Yes normal to inspection, Yes normocephalic and Yes atraumatic Eyes: General: appearance normal, both eyes and all related structures Neck: Neck: Yes normal visual inspection, Yes full ROM, Yes no meningeal signs, Yes trachea midline and Yes supple Chest: Chest palpation & inspection: normal inspection of the chest Resp: Other: appreciable rales throughout; no appreciable rhonchi, wheezing Effort & Inspection: normal respiratory effort Cardio: Rate: regular rate Rhythm: regular rhythm GI: Inspection: Yes normal to inspection, No Abdominal wall edema and No distended Palpation (GI): Soft to palpation, not firm, nontender, no guarding and not rigid Skin: General skin exam: no rashes or lesions noted Neuro: Other: alert, oriented x0 General: tone normal, moves all extremities, no meningeal signs and no focal motor deficits Extrem: General: Yes normal to inspection, Yes full ROM, Yes capillary refill normal and Yes no clubbing, cyanosis or edema Psych: Appearance: grossly normal Objective Data Labs 03/27/24 05:17 03/27/24 05:17 Labs: Laboratory Results - last 24 hr 03/26/24 03/26/24 03/26/24 10:38 11:16 11:35 WBC 8.5 RBC 2.12 L Hgb 5.6 L* Hct 18.6 L* MCV 87.7 MCH 26.4 L MCHC 30.1 L RDW 14.6 Plt Count 431 H MPV 11.3 Immature Gran % (Auto) 0.2 Neut % (Auto) 80.5 H Lymph % (Auto) 11.0 L Greene % (Auto) 8.1 Eos % (Auto) 0.0 Baso % (Auto) 0.2 Lymph # (Auto) 0.9 L Greene # (Auto) 0.7 Eos # (Auto) 0.0 Baso # (Auto) 0.0 Abs Immat Gran (auto) 0.02 Absolute Neuts (auto) 6.9 Absolute Nucleated RBC 0.120 H Nucleated RBC % (auto) 1.4 H PT INR Sodium 135 Potassium 4.5 Chloride 104 Carbon Dioxide 16 L Anion Gap 20 BUN 16 Creatinine 0.99 Estim Creat Clear Calc 40.5 Estimated GFR 55 POC Glucose Random Glucose 136 H Lactic Acid 5.1 H* Lactic Acid F/U @ 2Hr Lactic Acid F/U @ 4Hr Calcium 9.3 Phosphorus Magnesium Total Bilirubin 0.6 Direct Bilirubin 0.3 AST 220 H ALT 183 H Alkaline Phosphatase 56 Troponin I High Sens 30.6 H B-Natriuretic Peptide 1277 H Total Protein 6.9 Albumin 3.9 Lipase 25 TSH Urine Color Urine Appearance Urine pH Ur Specific [place] Urine Protein Urine Glucose (UA) Urine Ketones Urine Blood Urine Nitrite Ur Leukocyte Esterase Stool Occult Blood Influenza Type A (PCR) NEGATIVE Influenza Type B (PCR) NEGATIVE RSV RNA Qual (PCR) NEGATIVE SARS-CoV-2 RNA (RT-PCR) NEGATIVE Blood Type Antibody Screen Crossmatch 03/26/24 03/26/24 03/26/24 11:50 11:53 12:57 WBC RBC Hgb Hct MCV MCH MCHC RDW Plt Count MPV Immature Gran % (Auto) Neut % (Auto) Lymph % (Auto) [place] % (Auto) Eos % (Auto) Baso % (Auto) Lymph # (Auto) [place] # (Auto) Eos # (Auto) Baso # (Auto) Abs Immat Gran (auto) Absolute Neuts (auto) Absolute Nucleated RBC Nucleated RBC % (auto) PT INR Sodium Potassium Chloride Carbon Dioxide Anion Gap BUN Creatinine Estim Creat Clear Calc Estimated GFR POC Glucose Random Glucose Lactic Acid Lactic Acid F/U @ 2Hr 7.3 H* Lactic Acid F/U @ 4Hr Calcium Phosphorus Magnesium Total Bilirubin Direct Bilirubin AST ALT Alkaline Phosphatase Troponin I High Sens B-Natriuretic Peptide Total Protein Albumin Lipase TSH Urine Color Urine Appearance Urine pH Ur Specific [place] Urine Protein Urine Glucose (UA) Urine Ketones Urine Blood Urine Nitrite Ur Leukocyte Esterase Stool Occult Blood POSITIVE Influenza Type A (PCR) Influenza Type B (PCR) RSV RNA Qual (PCR) SARS-CoV-2 RNA (RT-PCR) Blood Type A Positive Antibody Screen NEGATIVE Crossmatch See Detail 03/26/24 03/26/24 03/26/24 16:30 22:36 23:57 WBC 8.9 RBC 3.31 L D Hgb 8.8 L D Hct 27.7 L D MCV 83.7 MCH 26.6 L MCHC 31.8 RDW 14.9 Plt Count 425 H MPV 10.7 Immature Gran % (Auto) 0.5 H Neut % (Auto) 91.9 H Lymph % (Auto) 5.5 L Greene % (Auto) 2.0 Eos % (Auto) 0.0 Baso % (Auto) 0.1 Lymph # (Auto) 0.5 L [place] # (Auto) 0.2 Eos # (Auto) 0.0 Baso # (Auto) 0.0 Abs Immat Gran (auto) 0.04 H Absolute Neuts (auto) 8.2 Absolute Nucleated RBC 0.110 H Nucleated RBC % (auto) 1.2 H PT 25.4 H INR 2.2 H Sodium 137 Potassium 4.4 Chloride 107 Carbon Dioxide 16 L Anion Gap 18 BUN 16 Creatinine 0.91 Estim Creat Clear Calc 44.1 Estimated GFR > 60 POC Glucose 143 H 148 H Random Glucose 150 H Lactic Acid Lactic Acid F/U @ 2Hr Lactic Acid F/U @ 4Hr 4.6 H* Calcium 8.5 D Phosphorus 3.3 Magnesium 1.9 Total Bilirubin 1.2 H Direct Bilirubin 0.6 H AST 762 H ALT 633 H Alkaline Phosphatase 56 Troponin I High Sens 34.6 H B-Natriuretic Peptide Total Protein 6.7 Albumin 3.8 Lipase TSH 0.54 Urine Color Urine Appearance Urine pH Ur Specific [place] Urine Protein Urine Glucose (UA) Urine Ketones Urine Blood Urine Nitrite Ur Leukocyte Esterase Stool Occult Blood Influenza Type A (PCR) Influenza Type B (PCR) RSV RNA Qual (PCR) SARS-CoV-2 RNA (RT-PCR) Blood Type Antibody Screen Crossmatch 03/27/24 03/27/24 03/27/24 00:46 05:17 06:32 WBC 13.3 H RBC 3.65 L Hgb 9.9 L Hct 30.0 L MCV 82.2 MCH 27.1 MCHC 33.0 RDW 15.6 Plt Count 344 MPV 11.4 Immature Gran % (Auto) 0.7 H Neut % (Auto) 86.1 H Lymph % (Auto) 6.2 L Greene % (Auto) 6.7 Eos % (Auto) 0.1 Baso % (Auto) 0.2 Lymph # (Auto) 0.8 L [place] # (Auto) 0.9 Eos # (Auto) 0.0 Baso # (Auto) 0.0 Abs Immat Gran (auto) 0.09 H Absolute Neuts (auto) 11.4 H Absolute Nucleated RBC 0.090 H Nucleated RBC % (auto) 0.7 H PT INR Sodium 138 Potassium 3.3 D Chloride 106 Carbon Dioxide 17 L Anion Gap 18 BUN 18 H Creatinine 0.87 Estim Creat Clear Calc 46.2 Estimated GFR > 60 POC Glucose Random Glucose 134 H Lactic Acid 1.3 Lactic Acid F/U @ 2Hr Lactic Acid F/U @ 4Hr Calcium 8.7 Phosphorus 2.4 L Magnesium 1.7 Total Bilirubin Direct Bilirubin AST ALT Alkaline Phosphatase Troponin I High Sens B-Natriuretic Peptide Total Protein Albumin Lipase TSH Urine Color Yellow Urine Appearance Clear Urine pH 5.5 Ur Specific [place] 1.010 Urine Protein Negative Urine Glucose (UA) Negative Urine Ketones Negative Urine Blood Negative Urine Nitrite Negative Ur Leukocyte Esterase Negative Stool Occult Blood Influenza Type A (PCR) Influenza Type B (PCR) RSV RNA Qual (PCR) SARS-CoV-2 RNA (RT-PCR) Blood Type Antibody Screen Crossmatch Microbiology Microbiology Results: Microbiology 03/26/24 11:16 Blood - Venous Blood Culture - Preliminary Prelim: GPR Gram Stain only Progress Note: A&P Assessment and plan (1) Pneumonia: Status: Acute (2) Sepsis: Status: Acute Plan Patient is a 73 Y F presenting to emergency department from long term on 03/26 w/ dyspnea, c/f aspiration the previous day, found to have work-up c/f pneumonia c/b sepsis N: no acute issues CV: transient hypotension, improved s/p IVF; judicious use of IVF, norepinephrine gtt as needed; troponinemia, likely d/t demand, to monitor closely R: acute hypoxic respiratory failure, likely d/t aspiration pneumonia, NC, wean as tolerated GI: transaminitis, likely d/t sepsis, to monitor; diabetic diet : c/f volume overload, judicious use of IVF, diuresis as tolerated; to monitor renal indices, electrolytes closely H: anemia, unclear etiology, transfuse as needed; to avoid apixaban, chemical DVT prophylaxis ID: c/f pneumonia, vancomycin, cefepime; BCx 03/26 w/ gram negative rods E: diabetes mellitus, to monitor hypo-/hyper-glycemia P: no acute issues S: of note, patient alert, oriented x0, though when asked if she has a partner, she reported her has , that she has no children, has siblings though they are in [place], and has no friends; to engage social work 03/28 to attempt to find social contacts Quality Stroke Does the patient have a stroke diagnosis?: No VTE Prior VTE?: No VTE Risk Level:: Medical - moderate - high VTE Device Contraindication: N/A - Device Ordered VTE Drug Contraindication: Treatment Not Tolerated
[2024-03-27] MEDS: Magnesium Sulfate/D5W 1 GM/100 ML PIGGYBACK IV (08:25)
[2024-03-27] MEDS: Potassium Phosphate/NS 15 MMOL/250 ML PLAST..BAG 62.5 MMOL IV ×2 (08:25→12:26)
[2024-03-27] MEDS: Furosemide 20 MG/2 ML VIAL IVPUSH (08:25)
[2024-03-27 10:45] LABS: Glucose, Whole Blood 140 mg/dL (60-115)
[2024-03-27] MEDS: cefEPime HCl/D5W 2 GM/50 ML PIGGYBACK IV ×2 (11:54→22:57)
[2024-03-27 13:08] LABS: Vancomycin Random 17.4 mcg/mL (15-20)
--- NOTE | 2024-03-27 13:24 | HE.PHANOTE ---
Addendum entered by Franco Burris RPh 03/28/24 10:46: Regimen of 1 gram q24h was put in to start @0800 on 03/29/24. Not sure why no dose is scheduled for 03/28/24 so i put in a random which came back as 8.4 @1000 on 03/28/24. Dose is changed to 1250 mg q24h, starting @1200 on 03/28/24. Next random is scheduled for 03/29/24 @1000. Original Note: Vancomycin addendum: Level came back at 17.4 after 2 doses. Switched regimen to 1 gram q 24 hours with desirable less toxicity. Will check a repeat level after another dose.
--- NOTE | 2024-03-27 13:27 | MHC.CM.PN ---
IMM DELIVERED. 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 PER CHART, PT IS A RESIDENT AT [facility]. RETURN REFERRAL SENT WITH REQUEST FOR COPY OF HCP. PT WILL RETURN VIA BLS ON DC. CM WILL CONTINUE TO FOLLOW FOR PLAN.
[2024-03-27 16:14] LABS: Glucose, Whole Blood 190 mg/dL (60-115)
[2024-03-27] MEDS: Insulin Lispro 100 UNIT/ML 3 ML VIAL SUBCUT ×2 (16:37→20:54)
[2024-03-27 20:43] LABS: Glucose, Whole Blood 185 mg/dL (60-115)
[2024-03-27] MEDS: 0.9 % Sodium Chloride 250 ML 999 ML IV (20:54)
[2024-03-27] MEDS: Metoprolol Tartrate 5 MG/5 ML VIAL IVPUSH (21:17)
[2024-03-27] MEDS: Metoprolol Tartrate 25 MG TABLET 75 MG PO (21:43)
[2024-03-28] VITALS (14 sets, daily range): BP systolic 98–139; BP diastolic 40–67; PULSE 79–100; RESP 18–97; TEMP 35.1–37.9; O2SAT 92–96; BMI 22.9
[2024-03-28 05:54] LABS: MANUAL DIFF FLAG NO
[2024-03-28 05:55] LABS: Basophils Percent Auto 0.1 % (0-2); Eosinophils Percent Auto 0.1 % (0-4); Imm Gran Abs Auto 0.07 X10*3/uL (0.00-0.03); Imm Gran Pct Auto 0.5 % (0.0-0.4); Lymphocytes Absolute Auto 1.5 X10*3/uL (1.2-4.9); Lymphocytes Percent Auto 10.9 % (20-40); Mean Corpuscular HGB Conc 32.3 g/dl (31.0-35.0); Mean Corpuscular Hemoglobin 26.8 pg (27.0-33.0); Mean Corpuscular Volume 83.1 fL (80.0-98.0); Mean Platelet Volume 11.4 fL (9.4-12.3); Monocytes Percent Auto 7.4 % (2-11); NRBC Pct Auto 0.4 /100WBC (0.0-0.2); Neutrophils Absolute Auto 11.1 x10*3/uL (2.0-8.3); Platelet Count 358 X10*3/uL (160-400); Red Blood Count 3.73 X10*6/uL (4.20-5.50); Red Cell Distribution Width 16.4 % (11.0-16.0); White Blood Count 13.8 X10*3/uL (4.8-10.8)
[2024-03-28 06:08] LABS: Albumin Level 3.4 g/dL (3.5-5.0); Anion Gap 16 (12-20); Blood Urea Nitrogen 16 mg/dL (9-16); Calcium 8.7 mg/dL (8.4-10.2); Carbon Dioxide 19 mmol/L (22-29); Chloride 105 mmol/L (96-108); Creatinine Clr Calc Pharmacy 44.6; Estimated Glomerular Filt Rate > 60; Glucose Random 153 mg/dL (60-115); Magnesium 1.8 mg/dL (1.6-2.6); Phosphorus 3.3 mg/dL (2.7-4.5); Potassium 3.3 mmol/L (3.3-5.1); Sodium 137 mmol/L (135-145)
[2024-03-28] MEDS: Omeprazole 20 MG CAPSULE.DR PO (06:10)
--- NOTE | 2024-03-28 07:29 | P.PNIM_ITS ---
Subjective Subjective Date of Service: 03/28/24 Interval History: f/u on acute hypoxic resp failure d/t PNA, gib anemia, bacterema interval: hypotension resolved, patient is doing better, no sob Physical Exam 2 Vital Signs: Vital Signs: Last Vital Signs Temp 99.1 F 03/28/24 05:00 Pulse 89 03/28/24 06:00 Resp 24 H 03/28/24 06:00 BP 129/46 L 03/28/24 06:00 Pulse Ox 93 03/28/24 06:00 O2 Del Method Room Air 03/28/24 06:00 O2 Flow Rate 2 03/27/24 09:00 BMI result Body Mass Index 22.9 Const: Other: General: , oriented to self, place no acute distress Resp: CTA bilateral CVS: S1,S2,RRR GI: +BS, NT, no distention Skin: No rash Neuro: motor grossly intact Psych: appropriate affect Objective Data Active Medications Albuterol/Ipratropium (Albuterol/Iprat 2.5/0.5mg 3 Ml Ampul.Neb) 3 ml INHALE Q4H PRN PRN Reason: Wheezing Furosemide (Furosemide 20 Mg/2 Ml Vial) 20 mg IVPUSH DAILY [facility]; Protocol Last Admin: 03/27/24 08:25 Dose: 20 mg Documented By: SANDI Cefepime HCl (Maxipime) 2 gm in 50 mls @ 100 mls/hr IV Q12H [facility] Last Infusion: 03/27/24 23:29 Dose: Infused Documented By: MILAGROS Vancomycin HCl 1,000 mg/ (Sodium Chloride) 270 mls @ 270 mls/hr IV Q24H [facility] Insulin Human Lispro (Insulin Lispro 100 Unit/Ml 3 Ml Vial) 0 unit SUBCUT QIDACHS [facility]; Protocol Last Admin: 03/27/24 20:54 Dose: 2 unit Documented By: MILAGROS Metoprolol Tartrate (Metoprolol Tartrate 25 Mg Tablet) 75 mg PO BID [facility]; Protocol Last Admin: 03/27/24 21:43 Dose: 75 mg Documented By: MILAGROS Omeprazole (Omeprazole 20 Mg Capsule.) 20 mg PO DAILY@0630 [facility] Last Admin: 03/28/24 06:10 Dose: 20 mg Documented By: MILAGROS Pharmacy Consult (Consult Rx Vancomycin Dosing) 1 each MISCELLANE DAILY PRN PRN Reason: Consult order Potassium Chloride (Potassium Chloride Packet 20 Meq Packet) 40 meq PO ONCE ONE Stop: 03/28/24 08:01 Sodium Chloride (0.9 % Sodium Chloride Flush 3 Ml Syringe) 3 ml IVFLUSH QSHIFT [facility] Labs 03/28/24 05:32 03/28/24 05:32 Labs: Laboratory Results - last 24 hr 03/27/24 03/27/24 03/27/24 10:41 12:49 16:11 MCV MCH MCHC RDW Plt Count MPV Immature Gran % (Auto) Neut % (Auto) Lymph % (Auto) [place] % (Auto) Eos % (Auto) Baso % (Auto) Lymph # (Auto) [place] # (Auto) Eos # (Auto) Baso # (Auto) Abs Immat Gran (auto) Absolute Neuts (auto) Absolute Nucleated RBC Nucleated RBC % (auto) Anion Gap Estim Creat Clear Calc Estimated GFR POC Glucose 140 H 190 H Random Glucose Calcium Phosphorus Magnesium Albumin Random Vancomycin 17.4 03/27/24 03/28/24 20:40 05:32 MCV 83.1 MCH 26.8 L MCHC 32.3 RDW 16.4 H Plt Count 358 MPV 11.4 Immature Gran % (Auto) 0.5 H Neut % (Auto) 81.0 H Lymph % (Auto) 10.9 L [place] % (Auto) 7.4 Eos % (Auto) 0.1 Baso % (Auto) 0.1 Lymph # (Auto) 1.5 [place] # (Auto) 1.0 Eos # (Auto) 0.0 Baso # (Auto) 0.0 Abs Immat Gran (auto) 0.07 H Absolute Neuts (auto) 11.1 H Absolute Nucleated RBC 0.050 H Nucleated RBC % (auto) 0.4 H Anion Gap 16 Estim Creat Clear Calc 44.6 Estimated GFR > 60 POC Glucose 185 H Random Glucose 153 H Calcium 8.7 Phosphorus 3.3 Magnesium 1.8 Albumin 3.4 L Random Vancomycin Microbiology Microbiology Results: Microbiology 03/26/24 11:16 Blood Culture - Preliminary Blood - Venous Prelim: GPC Gram Stain only 03/26/24 10:52 Blood Culture - Preliminary Blood - Venous No growth after 24 hours. Assessment and Plan (1) Anemia: Status: Acute (2) Pneumonia: Status: Acute Plan 73F with AFIB on eliquis, HLD, HTN presented for SNF with hypoxia and hypotension, severe anemia. Admitted to the [age]year-old female presented to the ED from a assisted on 03/26 with dyspnea following a suspected aspiration event the previous day. Work-up revealed findings consistent with pneumonia, complicated by sepsis. Acute hypoxic resp failure due to PNA, possibly aspiration type -hypoxia resolved, treat underlying PNA -Vanco and cefepime for pna Transient Hypotension possibly related to severe anemia, resolved Gram positive cocci bacteremia 1/2 sensitivity pending -continue Vanco -follow cultures Acute blood loss anemia (hemoglobin was 5), +occult blood s/p 3 units of RBC -hold eliquis -PPI -Gi consult HTN--BP better, -restarted Metoprolol -hold Aldactone and Norvasc Diabetes -hold metformin -sliding scale Transaminitis--trending up ? shcok liver US shos gallstone without acute imflamatory process DVT prophylaxis--device, hold eliquis d/t anemia and gib Quality Stroke Does the patient have a stroke diagnosis?: No VTE Prior VTE?: No VTE Risk Level:: Medical - moderate - high VTE Device Contraindication: N/A - Device Ordered VTE Drug Contraindication: Treatment Not Tolerated
[2024-03-28 08:09] LABS: Glucose, Whole Blood 150 mg/dL (60-115)
[2024-03-28 08:24] LABS: HBS Num1 2.43 mIU/mL (0-7.99); HBc Num1 0.14 S/CO (0.00-0.79); HBsAGNum1 0.33 S/CO (0.00-0.99); Hepatitis A Antibody IgM 0.32 Index (0-0.79); Hepatitis B Core Antibody Nonreactive (Nonreactive); Hepatitis B Surface Antigen Negative (Negative); ~HepC Num1 0.09 S/CO (0.00-0.79); ~Hepatitis A Antibody IgM Nonreactive (Nonreactive); ~Hepatitis B Surface Antibody NONREACTIVE (Nonreactive); ~Hepatitis C Antibody Nonreactive (Nonreactive)
[2024-03-28] MEDS: Atorvastatin Calcium 80 MG TABLET PO ×2 (08:55→20:15)
[2024-03-28] MEDS: Sertraline HCL 100 MG TABLET PO (08:55)
[2024-03-28] MEDS: Cholecalciferol (Vitamin D3) 25 MCG TABLET PO (08:55)
[2024-03-28] MEDS: Metoprolol Tartrate 25 MG TABLET 75 MG PO ×2 (08:55→20:12)
[2024-03-28] MEDS: Folic Acid 1 MG TABLET PO (08:56)
[2024-03-28] MEDS: Potassium Chloride Packet 20 MEQ PACKET 40 MEQ PO (08:56)
[2024-03-28] MEDS: 0.9 % Sodium Chloride Flush 3 ML SYRINGE IVFLUSH ×2 (08:56→20:10)
[2024-03-28] MEDS: Furosemide 20 MG/2 ML VIAL IVPUSH (08:59)
[2024-03-28 10:31] LABS: Vancomycin Random 8.4 mcg/mL (15-20)
[2024-03-28] MEDS: cefEPime HCl/D5W 2 GM/50 ML PIGGYBACK IV ×2 (11:20→23:10)
[2024-03-28 11:44] LABS: Glucose, Whole Blood 220 mg/dL (60-115)
[2024-03-28] MEDS: vancomycin HCL 1,250 MG in 0.9 % Sodium Chloride 250 ML 166.67 MG IV (11:51)
[2024-03-28] MEDS: Insulin Lispro 100 UNIT/ML 3 ML VIAL SUBCUT ×2 (11:51→20:40)
[2024-03-28 12:22] LABS: Glucose, Whole Blood 182 mg/dL (60-115)
--- NOTE | 2024-03-28 13:47 | MHC.CM.PN ---
EMR reviewed and per MD rounds, pt is not medically cleared for discharge due to management of pneumonia.
[2024-03-28 16:01] LABS: Glucose, Whole Blood 150 mg/dL (60-115)
--- NOTE | 2024-03-28 18:28 | PM.EVENT ---
Event Note Date of Service: 03/28/24 Event Note: GI Consult-Full note dictated-History from patient(? reliability) and EMR Imp/Recs: Anemia and elevated LFT's in relation to pneumonia and sepsis with associated shock liver . Her stool was brown and Heme + in the ER, but there has been no active GI bleeding despite her chronic use of Eliquis. Given the clinical history and her current clinical status I would not recommend an upper endoscopy or colonoscopy at this time. I would continue supportive care with treatment of underlying infection, maximize nutrition, continue PPI, and F/U labs re: LFT's and Hgb. Please advise if anything changes re: signs of active bleeding and we can always reassess things. Thanks Time Spent With Patient Time: Total time managing care of this patient today ____ minutes.
[2024-03-28] MEDS: Phytonadione (Vit K1) 10 MG in 0.9 % Sodium Chloride 50 ML 51 MG IV (20:10)
[2024-03-28] MEDS: Gabapentin 100 MG CAPSULE PO (20:12)
[2024-03-28] MEDS: traZODone HCL 50 MG TABLET PO (20:12)
[2024-03-28] MEDS: Melatonin 3 MG TABLET 9 MG PO (20:12)
[2024-03-28 20:34] LABS: Glucose, Whole Blood 220 mg/dL (60-115)
[2024-03-29 03:25] VITALS: BP 109/52; PULSE 80; RESP 16; TEMP 35.9; O2SAT 92
--- NOTE | 2024-03-29 05:16 | CONS_ITS ---
DATE OF SERVICE: 03/28/2024 REASON FOR CONSULTATION: Anemia and elevated LFTs. HISTORY OF PRESENT ILLNESS: This has been obtained from the patient, although her reliability is not completely clear, and from the medical record. The patient is a 73-year-old female [facility] evaluation of symptoms including shortness of breath, report of aspiration, and associated hypoxia and hypotension. She was admitted with a diagnosis of pneumonia and septicemia. On admission, the patient's hemoglobin was 5.6 with MCV of 88. According to the ER note her stool was brown but heme-positive. There was no report of any hematemesis nor hematochezia. She is on chronic Eliquis, but no other blood thinners from what I can see in her medication list. Since being here in the hospital, she has had no signs of active bleeding. She did receive a total of 2 units of blood with a hemoglobin currently stable at 9.9 yesterday and 10.0 today. The patient denies abdominal pain. Her appetite seems only fair. There is no report of previous GI procedures such as upper endoscopy or colonoscopy, at least at this hospital. CURRENT MEDICATIONS: Include atorvastatin, cefepime, vitamin D, folate acid, Lasix, gabapentin, insulin, melatonin, magnesium, metoprolol, omeprazole, sertraline, trazodone, vancomycin. PAST MEDICAL HISTORY: Diabetes mellitus. Hypertension. Hyperlipidemia. Gastroesophageal reflux. Depression. I do not see any report of ID or stroke. SOCIAL HISTORY: [facility]. FAMILY HISTORY: Noncontributory. PHYSICAL EXAMINATION: GENERAL: There is an alert but chronically ill appearing female, in no distress. She answers some questions, but does not seem to know that she was living in a penitentiary. SKIN: Warm and dry. Anicteric sclerae. CARDIAC: Normal S1, S2. ABDOMEN: Soft, nondistended, nontender, without mass. LABORATORY DATA: CBC as above with initial hemoglobin of 5.6 with subsequent rise after 2 units of blood to 9.9 and 10.0. Normal MCV. Platelets 258,000, white blood cell count 13.8. PT was 1.6 back in 2019, but on admission here was 2.2. Normal electrolytes with a BUN of 16 and creatinine 0.9. Albumin 3.4. Her initial LFTs were notable for AST 220 and ALT 183. Followup LFTs showed an AST of 762, an ALT of 633 with a total bilirubin of 1.2 and alkaline phosphatase of 56. Lipase was normal. Lactic acid level was as high as 7.3, but decreased to 4.6. Stool was heme-positive. Hepatitis A IgM was negative. Hepatitis B antigen was negative. Hepatitis C antibody was negative. Abdominal ultrasound describes some gallstones but no sign of any cholecystitis nor biliary obstruction. There was evidence of fatty liver. Chest x-ray describes bilateral lower lobe infiltrates and possible CHF. IMPRESSION: The patient is an elderly female with multiple comorbidities, presenting with acute septicemia with associated pneumonia, significant anemia, and elevated LFTs. Given her clinical presentation, I suspect there was a component of shock liver with associated hypotension. There was no sign of any biliary obstruction nor intrinsic liver disease on the ultrasound. In that regard. I would continue supportive care and follow up LFTs and PT with INR tomorrow. I do not think she needs a complete liver workup at this time given the clinical history of hypotension and the septicemia. In regard to her anemia, there does not appear to be any acute nor significant GI blood loss given the report of brown but heme-positive stool. I suspect the anemia is in relation to her acute illness, including her septicemia. She has had a good response to the transfusions and has been maintaining her hemoglobin without any further signs of significant bleeding. Given her overall clinical condition, and the clinical history, I would not recommend upper endoscopy nor colonoscopy at this time. I would continue her PPI, maximize her nutrition, and again continue to follow her laboratories. Certainly if she shows signs of active bleeding, we can always reassess things and consider endoscopy at that time if need be. I will continue to hold her Eliquis if there is no significant contraindication to that as I am not entirely sure as to why she is on that. Please advise me if anything changes regarding signs of active bleeding, and we can reassess the patient if need be. Thank you for the consultation. MD MARIA C Connors/BRINA / [phone] MTDNino
[2024-03-29 06:56] LABS: MANUAL DIFF FLAG NO
[2024-03-29 07:06] LABS: INTERNATIONAL NORM RATIO 1.1 (0.9-1.1); Prothrombin Time 12.3 SEC (10.9-12.4)
[2024-03-29 07:08] LABS: Basophils Percent Auto 0.1 % (0-2); Eosinophils Percent Auto 0.2 % (0-4); Hematocrit 29.8 % (37.0-47.0); Hemoglobin 9.6 g/dl (12.0-16.0); Imm Gran Abs Auto 0.07 X10*3/uL (0.00-0.03); Imm Gran Pct Auto 0.6 % (0.0-0.4); Lymphocytes Absolute Auto 1.7 X10*3/uL (1.2-4.9); Lymphocytes Percent Auto 14.1 % (20-40); Mean Corpuscular HGB Conc 32.2 g/dl (31.0-35.0); Mean Corpuscular Hemoglobin 27.2 pg (27.0-33.0); Mean Corpuscular Volume 84.4 fL (80.0-98.0); Mean Platelet Volume 11.7 fL (9.4-12.3); Monocytes Absolute Auto 1.1 X10*3/uL (0.1-1.2); Monocytes Percent Auto 9.1 % (2-11); NRBC Pct Auto 0.4 /100WBC (0.0-0.2); Neutrophils Absolute Auto 9.3 x10*3/uL (2.0-8.3); Neutrophils Percent Auto 75.9 % (45-73); Platelet Count 312 X10*3/uL (160-400); Red Blood Count 3.53 X10*6/uL (4.20-5.50); Red Cell Distribution Width 16.5 % (11.0-16.0); White Blood Count 12.2 X10*3/uL (4.8-10.8)
[2024-03-29 07:27] LABS: Alanine Aminotransferase 406 U/L (0-31); Albumin Level 3.2 g/dL (3.5-5.0); Alkaline Phosphatase 52 U/L (39-117); Anion Gap 12 (12-20); Aspartate Amino Transferase 106 U/L (5-31); Bilirubin Direct 0.5 mg/dL (0.0-0.5); Bilirubin Total 1.3 mg/dL (0.0-1.0); Blood Urea Nitrogen 22 mg/dL (9-16); Calcium 8.3 mg/dL (8.4-10.2); Carbon Dioxide 22 mmol/L (22-29); Chloride 107 mmol/L (96-108); Creatinine Clr Calc Pharmacy 44.6; Estimated Glomerular Filt Rate > 60; Glucose Random 123 mg/dL (60-115); Magnesium 1.9 mg/dL (1.6-2.6); Phosphorus 3.3 mg/dL (2.7-4.5); Potassium 3.7 mmol/L (3.3-5.1); Sodium 137 mmol/L (135-145); Total Protein 5.8 g/dL (6.5-8.0)
[2024-03-29 07:30] VITALS: BP 123/66; PULSE 77; RESP 18; TEMP 36.2; O2SAT 93
[2024-03-29 07:45] LABS: Glucose, Whole Blood 119 mg/dL (60-115)
[2024-03-29] MEDS: Metoprolol Tartrate 25 MG TABLET 75 MG PO ×2 (08:51→21:28)
[2024-03-29] MEDS: Cholecalciferol (Vitamin D3) 25 MCG TABLET PO (08:51)
[2024-03-29] MEDS: Folic Acid 1 MG TABLET PO (08:51)
[2024-03-29] MEDS: Sertraline HCL 100 MG TABLET PO (08:51)
[2024-03-29] MEDS: Furosemide 20 MG/2 ML VIAL IVPUSH (08:55)
[2024-03-29] MEDS: 0.9 % Sodium Chloride Flush 3 ML SYRINGE IVFLUSH ×2 (08:56→21:23)
[2024-03-29 10:27] LABS: Vancomycin Random 16.3 mcg/mL (15-20)
--- NOTE | 2024-03-29 10:44 | HE.PHANOTE ---
RE: VANCO DOSING Random came back as 16.3 which is 3 higher than predicted. Dose is decreased to 1000 mg q24h, next random is scheduled for 03/30/24 @1000.
[2024-03-29] MEDS: cefEPime HCl/D5W 2 GM/50 ML PIGGYBACK IV ×2 (11:02→21:23)
[2024-03-29 11:12] VITALS: BP 110/52; PULSE 73; RESP 20; TEMP 36.3; O2SAT 92
[2024-03-29 11:36] LABS: Glucose, Whole Blood 214 mg/dL (60-115)
[2024-03-29] MEDS: vancomycin HCL 1,000 MG in 0.9 % Sodium Chloride 250 ML 270 MG IV (11:49)
[2024-03-29] MEDS: Insulin Lispro 100 UNIT/ML 3 ML VIAL SUBCUT ×2 (11:52→21:28)
[2024-03-29 15:15] VITALS: BP 110/60; PULSE 86; RESP 18; TEMP 36.2; O2SAT 95
[2024-03-29 16:02] LABS: Glucose, Whole Blood 100 mg/dL (60-115)
--- NOTE | 2024-03-29 16:31 | P.PNIM_ITS ---
Subjective Subjective Date of Service: 03/29/24 Interval History: f/u on acute hypoxic resp failure d/t PNA, gib anemia, bacterema Review of Systems soba nd hypoxia improving Physical Exam 2 Vital Signs: Vital Signs: Last Vital Signs Temp 97.2 F 03/29/24 15:15 Pulse 86 03/29/24 15:15 Resp 18 03/29/24 15:15 BP 110/60 03/29/24 15:15 Pulse Ox 95 03/29/24 15:15 O2 Del Method Room Air 03/29/24 15:15 O2 Flow Rate 2 03/27/24 09:00 BMI result Body Mass Index 22.9 General: , oriented to self, place no acute distress Resp: CTA bilateral CVS: S1,S2,RRR GI: +BS, NT, no distention Skin: No rash Neuro: motor grossly intact Psych: appropriate affect Objective Data Active Medications Albuterol/Ipratropium (Albuterol/Iprat 2.5/0.5mg 3 Ml Ampul.Neb) 3 ml INHALE Q4H PRN PRN Reason: Wheezing Atorvastatin Calcium (Atorvastatin Calcium 80 Mg Tablet) 80 mg PO BEDTIME [facility] Last Admin: 03/28/24 20:15 Dose: 80 mg Documented By: FREDERICK Clotrimazole (Clotrimazole 1 % Cream 15 Gm Tube) 1 appl TOPICAL DAILY PRN; Protocol PRN Reason: Rash Folic Acid (Folic Acid 1 Mg Tablet) 1 mg PO DAILY JAMEE Last Admin: 03/29/24 08:51 Dose: 1 mg Documented By: VERENA Furosemide (Furosemide 20 Mg/2 Ml Vial) 20 mg IVPUSH DAILY JAMEE; Protocol Last Admin: 03/29/24 08:55 Dose: 20 mg Documented By: VERENA Gabapentin (Gabapentin 100 Mg Capsule) 100 mg PO BEDTIME JAMEE Last Admin: 03/28/24 20:12 Dose: 100 mg Documented By: FREDERICK Cefepime HCl (Maxipime) 2 gm in 50 mls @ 100 mls/hr IV Q12H [facility] Last Infusion: 03/29/24 11:32 Dose: Infused Documented By: VERENA Vancomycin HCl 1,000 mg/ (Sodium Chloride) 270 mls @ 270 mls/hr IV Q24H [facility] Last Infusion: 03/29/24 12:49 Dose: Infused Documented By: VERENA Insulin Human Lispro (Insulin Lispro 100 Unit/Ml 3 Ml Vial) 0 unit SUBCUT QIDACHS [facility]; Protocol Last Admin: 03/29/24 16:16 Dose: Not Given Documented By: VERENA Non-Admin Reason: No Insulin Coverage Melatonin (Melatonin 3 Mg Tablet) 9 mg PO BEDTIME PRN PRN Reason: Sleep Last Admin: 03/28/24 20:12 Dose: 9 mg Documented By: FREDERICK Metoprolol Tartrate (Metoprolol Tartrate 25 Mg Tablet) 75 mg PO BID [facility]; Protocol Last Admin: 03/29/24 08:51 Dose: 75 mg Documented By: VERENA Omeprazole (Omeprazole 20 Mg Capsule.) 20 mg PO DAILY@0630 [facility] Last Admin: 03/29/24 06:35 Dose: Not Given Documented By: FREDERICK Non-Admin Reason: Patient Refused Pharmacy Consult (Consult Rx Vancomycin Dosing) 1 each MISCELLANE DAILY PRN PRN Reason: Consult order Sertraline HCl (Sertraline Hcl 100 Mg Tablet) 100 mg PO DAILY [facility] Last Admin: 03/29/24 08:51 Dose: 100 mg Documented By: VERENA Sodium Chloride (0.9 % Sodium Chloride Flush 3 Ml Syringe) 3 ml IVFLUSH QSHIFT [facility] Last Admin: 03/29/24 16:16 Dose: Not Given Documented By: VERENA Non-Admin Reason: Previously Administered Trazodone HCl (Trazodone Hcl 50 Mg Tablet) 50 mg PO BEDTIME [facility] Last Admin: 03/28/24 20:12 Dose: 50 mg Documented By: FREDERICK Vitamin D (Cholecalciferol (Vitamin D3) 25 Mcg Tablet) 25 mcg PO DAILY [facility] Last Admin: 03/29/24 08:51 Dose: 25 mcg Documented By: VERENA Labs 03/29/24 06:19 03/29/24 06:19 Labs: Laboratory Results - last 24 hr 03/28/24 03/29/24 03/29/24 20:23 06:19 07:36 MCV 84.4 MCH 27.2 MCHC 32.2 RDW 16.5 H Plt Count 312 MPV 11.7 Immature Gran % (Auto) 0.6 H Neut % (Auto) 75.9 H Lymph % (Auto) 14.1 L [place] % (Auto) 9.1 Eos % (Auto) 0.2 Baso % (Auto) 0.1 Lymph # (Auto) 1.7 [place] # (Auto) 1.1 Eos # (Auto) 0.0 Baso # (Auto) 0.0 Abs Immat Gran (auto) 0.07 H Absolute Neuts (auto) 9.3 H Absolute Nucleated RBC 0.050 H Nucleated RBC % (auto) 0.4 H PT 12.3 D INR 1.1 Anion Gap 12 Estim Creat Clear Calc 44.6 Estimated GFR > 60 POC Glucose 220 H 119 H Random Glucose 123 H Calcium 8.3 L Phosphorus 3.3 Magnesium 1.9 Total Bilirubin 1.3 H Direct Bilirubin 0.5 AST 106 H ALT 406 H Alkaline Phosphatase 52 Total Protein 5.8 L Albumin 3.2 L Random Vancomycin 03/29/24 03/29/24 03/29/24 09:56 11:32 15:58 MCV MCH MCHC RDW Plt Count MPV Immature Gran % (Auto) Neut % (Auto) Lymph % (Auto) [place] % (Auto) Eos % (Auto) Baso % (Auto) Lymph # (Auto) [place] # (Auto) Eos # (Auto) Baso # (Auto) Abs Immat Gran (auto) Absolute Neuts (auto) Absolute Nucleated RBC Nucleated RBC % (auto) PT INR Anion Gap Estim Creat Clear Calc Estimated GFR POC Glucose 214 H 100 Random Glucose Calcium Phosphorus Magnesium Total Bilirubin Direct Bilirubin AST ALT Alkaline Phosphatase Total Protein Albumin Random Vancomycin 16.3 Microbiology Microbiology Results: Microbiology 03/26/24 11:16 Blood Culture - Final Blood - Venous Streptococcus viridans group 03/27/24 06:32 Blood Culture - Preliminary Blood - Venous No growth after 48 hours. 03/27/24 06:32 Blood Culture - Preliminary Blood - Venous No growth after 48 hours. 03/26/24 10:52 Blood Culture - Preliminary Blood - Venous No growth after 48 hours. Assessment and Plan (1) Anemia: Status: Acute (2) Pneumonia: Status: Acute Plan 73F with AFIB on eliquis, HLD, HTN presented for SNF with hypoxia and hypotension, severe anemia. Admitted to the ICEyear-old female presented to the ED from a [facility] on 03/26 with dyspnea following a suspected aspiration event the previous day. Work-up revealed findings consistent with pneumonia, complicated by sepsis. Acute hypoxic resp failure due to PNA, possibly aspiration type -hypoxia resolved, treat underlying PNA -Vanco and cefepime for pna Transient Hypotension possibly related to severe anemia, resolved Gram positive cocci bacteremia 1/2 sensitivity pending strep viridans -possible contminant repeat blood culture neg @48hrs Acute blood loss anemia (hemoglobin was 5), +occult blood s/p 3 units of RBC -hold eliquis -PPI -Gi consult HTN--BP better, -restarted Metoprolol -hold Aldactone and Norvasc Diabetes -hold metformin -sliding scale Transaminitis--trending up ? shcok liver lfts improving US shos gallstone without acute imflamatory process Gi following DVT prophylaxis--device, hold eliquis d/t anemia and gib Quality Stroke Does the patient have a stroke diagnosis?: No VTE Prior VTE?: No VTE Risk Level:: Medical - moderate - high VTE Device Contraindication: N/A - Device Ordered VTE Drug Contraindication: Treatment Not Tolerated
[2024-03-29 20:00] VITALS: BP 121/57; PULSE 96; RESP 20; TEMP 36.2; O2SAT 96
[2024-03-29 21:18] LABS: Glucose, Whole Blood 167 mg/dL (60-115)
[2024-03-29] MEDS: Gabapentin 100 MG CAPSULE PO (21:28)
[2024-03-29] MEDS: Atorvastatin Calcium 80 MG TABLET PO (21:28)
[2024-03-29] MEDS: traZODone HCL 50 MG TABLET PO (21:28)
[2024-03-30] VITALS (8 sets, daily range): BP systolic 116–151; BP diastolic 57–68; PULSE 74–104; RESP 18–20; TEMP 36.1–36.4; O2SAT 91–95; BMI 23.2
[2024-03-30 05:29] LABS: MANUAL DIFF FLAG NO
[2024-03-30 05:30] LABS: Basophils Percent Auto 0.1 % (0-2); Eosinophils Percent Auto 0.1 % (0-4); Hematocrit 31.1 % (37.0-47.0); Hemoglobin 9.8 g/dl (12.0-16.0); Imm Gran Abs Auto 0.05 X10*3/uL (0.00-0.03); Imm Gran Pct Auto 0.4 % (0.0-0.4); Lymphocytes Absolute Auto 1.4 X10*3/uL (1.2-4.9); Mean Corpuscular HGB Conc 31.5 g/dl (31.0-35.0); Mean Corpuscular Hemoglobin 27.4 pg (27.0-33.0); Mean Corpuscular Volume 86.9 fL (80.0-98.0); Mean Platelet Volume 11.6 fL (9.4-12.3); Monocytes Percent Auto 8.2 % (2-11); NRBC Pct Auto 0.6 /100WBC (0.0-0.2); Neutrophils Absolute Auto 9.1 x10*3/uL (2.0-8.3); Neutrophils Percent Auto 79.2 % (45-73); Platelet Count 309 X10*3/uL (160-400); Red Blood Count 3.58 X10*6/uL (4.20-5.50); Red Cell Distribution Width 16.6 % (11.0-16.0); White Blood Count 11.5 X10*3/uL (4.8-10.8)
[2024-03-30 05:43] LABS: Anion Gap 14 (12-20); Blood Urea Nitrogen 26 mg/dL (9-16); Calcium 8.8 mg/dL (8.4-10.2); Carbon Dioxide 18 mmol/L (22-29); Chloride 107 mmol/L (96-108); Estimated Glomerular Filt Rate 53; Glucose Random 153 mg/dL (60-115); Phosphorus 3.7 mg/dL (2.7-4.5); Potassium 4.2 mmol/L (3.3-5.1); Sodium 135 mmol/L (135-145)
[2024-03-30] MEDS: Omeprazole 20 MG CAPSULE.DR PO (06:22)
[2024-03-30 07:44] LABS: Glucose, Whole Blood 119 mg/dL (60-115)
[2024-03-30] MEDS: Metoprolol Tartrate 25 MG TABLET 75 MG PO ×2 (08:00→20:28)
[2024-03-30] MEDS: Cholecalciferol (Vitamin D3) 25 MCG TABLET PO (08:00)
[2024-03-30] MEDS: Folic Acid 1 MG TABLET PO (08:00)
[2024-03-30] MEDS: Sertraline HCL 100 MG TABLET PO (08:00)
[2024-03-30] MEDS: Furosemide 20 MG/2 ML VIAL IVPUSH (08:01)
[2024-03-30] MEDS: 0.9 % Sodium Chloride Flush 3 ML SYRINGE IVFLUSH ×3 (08:01→20:29)
[2024-03-30 09:30] LABS: Alanine Aminotransferase 312 U/L (0-31); Albumin Level 3.3 g/dL (3.5-5.0); Alkaline Phosphatase 55 U/L (39-117); Aspartate Amino Transferase 72 U/L (5-31); Bilirubin Direct 0.5 mg/dL (0.0-0.5); Bilirubin Total 1.1 mg/dL (0.0-1.0)
[2024-03-30] MEDS: Albuterol/Iprat 2.5/0.5MG 3 ML AMPUL.NEB INHALE ×2 (10:20→17:53)
[2024-03-30 10:22] LABS: Vancomycin Random 17.8 mcg/mL (15-20)
--- NOTE | 2024-03-30 10:56 | HE.PHANOTE ---
RE: VANCO DOSING Random came back as 17.8, which is about 2 mg/L higher than predicted. Renal function worsen so dose is decreased to 750 mg q24h starting @1200 on 03/30/24. Next random is scheduled for 03/31/24 @1000
[2024-03-30] MEDS: cefEPime HCl/D5W 2 GM/50 ML PIGGYBACK IV (11:29)
[2024-03-30 11:33] LABS: Glucose, Whole Blood 194 mg/dL (60-115)
[2024-03-30] MEDS: vancomycin HCL 750 MG in 0.9 % Sodium Chloride 250 ML 265 MG IV (12:13)
[2024-03-30] MEDS: Insulin Lispro 100 UNIT/ML 3 ML VIAL SUBCUT ×2 (12:13→17:35)
--- NOTE | 2024-03-30 15:08 | MHC.CM.PN ---
EMR reviewed and per MD rounds, pt is not medically cleared for discharge due to management of pneumonia.
--- NOTE | 2024-03-30 15:16 | HO.PM.IMPN ---
Subjective Subjective Date of Service: 03/30/24 Interval History: f/u on acute hypoxic resp failure d/t PNA, gib anemia, bacterema Review of Systems sob seems improving has dry cough Physical Exam Vital Signs: Vital Signs: Last Vital Signs Temp 97.1 F 03/30/24 07:03 Pulse 75 03/30/24 11:18 Resp 18 03/30/24 11:18 BP 121/58 L 03/30/24 11:18 Pulse Ox 95 03/30/24 11:18 O2 Del Method Nasal Cannula 03/30/24 11:18 O2 Flow Rate 2 03/30/24 11:18 BMI result Body Mass Index 23.2 General: , oriented to self, place no acute distress Resp: CTA bilateral CVS: S1,S2,RRR GI: +BS, NT, no distention Skin: No rash Neuro: motor grossly intact Psych: appropriate affect Objective Data Active Medications Albuterol/Ipratropium (Albuterol/Iprat 2.5/0.5mg 3 Ml Ampul.Neb) 3 ml INHALE Q4H PRN PRN Reason: Wheezing Last Admin: 03/30/24 10:20 Dose: 3 ml Documented By: ROSY Atorvastatin Calcium (Atorvastatin Calcium 80 Mg Tablet) 80 mg PO BEDTIME [facility]AMEE Last Admin: 03/29/24 21:28 Dose: 80 mg Documented By: HERSON Clotrimazole (Clotrimazole 1 % Cream 15 Gm Tube) 1 appl TOPICAL DAILY PRN; Protocol PRN Reason: Rash Folic Acid (Folic Acid 1 Mg Tablet) 1 mg PO DAILY JAMEE Last Admin: 03/30/24 08:00 Dose: 1 mg Documented By: VERENA Furosemide (Furosemide 20 Mg/2 Ml Vial) 20 mg IVPUSH DAILY JAMEE; Protocol Last Admin: 03/30/24 08:01 Dose: 20 mg Documented By: VERENA Gabapentin (Gabapentin 100 Mg Capsule) 100 mg PO BEDTIME [facility]EE Last Admin: 03/29/24 21:28 Dose: 100 mg Documented By: HERSON Cefepime HCl (Maxipime) 2 gm in 50 mls @ 100 mls/hr IV Q12H [facility] Last Infusion: 03/30/24 12:00 Dose: Infused Documented By: VERENA Vancomycin HCl 750 mg/ Sodium (Chloride) 265 mls @ 265 mls/hr IV Q24H [facility] Last Infusion: 03/30/24 13:13 Dose: Infused Documented By: VERENA Insulin Human Lispro (Insulin Lispro 100 Unit/Ml 3 Ml Vial) 0 unit SUBCUT QIDACHS [facility]; Protocol Last Admin: 03/30/24 12:13 Dose: 2 unit Documented By: VERENA Melatonin (Melatonin 3 Mg Tablet) 9 mg PO BEDTIME PRN PRN Reason: Sleep Last Admin: 03/28/24 20:12 Dose: 9 mg Documented By: FREDERICK Metoprolol Tartrate (Metoprolol Tartrate 25 Mg Tablet) 75 mg PO BID [facility]; Protocol Last Admin: 03/30/24 08:00 Dose: 75 mg Documented By: VERENA Omeprazole (Omeprazole 20 Mg Capsule.Dr) 20 mg PO DAILY@0630 [facility] Last Admin: 03/30/24 06:22 Dose: 20 mg Documented By: HERSON Pharmacy Consult (Consult Rx Vancomycin Dosing) 1 each MISCELLANE DAILY PRN PRN Reason: Consult order Sertraline HCl (Sertraline Hcl 100 Mg Tablet) 100 mg PO DAILY [facility] Last Admin: 03/30/24 08:00 Dose: 100 mg Documented By: VERENA Sodium Chloride (0.9 % Sodium Chloride Flush 3 Ml Syringe) 3 ml IVFLUSH QSHIFT [facility] Last Admin: 03/30/24 08:01 Dose: 3 ml Documented By: VERENA Trazodone HCl (Trazodone Hcl 50 Mg Tablet) 50 mg PO BEDTIME [facility] Last Admin: 03/29/24 21:28 Dose: 50 mg Documented By: HERSON Vitamin D (Cholecalciferol (Vitamin D3) 25 Mcg Tablet) 25 mcg PO DAILY [facility] Last Admin: 03/30/24 08:00 Dose: 25 mcg Documented By: VERENA Labs 03/30/24 05:18 03/30/24 05:18 Labs: Laboratory Results - last 24 hr 03/29/24 03/29/24 03/30/24 15:58 21:11 05:18 MCV 86.9 MCH 27.4 MCHC 31.5 RDW 16.6 H Plt Count 309 MPV 11.6 Immature Gran % (Auto) 0.4 Neut % (Auto) 79.2 H Lymph % (Auto) 12.0 L [place] % (Auto) 8.2 Eos % (Auto) 0.1 Baso % (Auto) 0.1 Lymph # (Auto) 1.4 [place] # (Auto) 1.0 Eos # (Auto) 0.0 Baso # (Auto) 0.0 Abs Immat Gran (auto) 0.05 H Absolute Neuts (auto) 9.1 H Absolute Nucleated RBC 0.070 H Nucleated RBC % (auto) 0.6 H Anion Gap 14 Estim Creat Clear Calc 39.0 Estimated GFR 53 POC Glucose 100 167 H Random Glucose 153 H Calcium 8.8 D Phosphorus 3.7 Magnesium 2.0 Total Bilirubin 1.1 H Direct Bilirubin 0.5 AST 72 H ALT 312 H Alkaline Phosphatase 55 Total Protein 6.0 L Albumin 3.3 L Random Vancomycin 03/30/24 03/30/24 03/30/24 07:40 10:02 11:29 MCV MCH MCHC RDW Plt Count MPV Immature Gran % (Auto) Neut % (Auto) Lymph % (Auto) [place] % (Auto) Eos % (Auto) Baso % (Auto) Lymph # (Auto) [place] # (Auto) Eos # (Auto) Baso # (Auto) Abs Immat Gran (auto) Absolute Neuts (auto) Absolute Nucleated RBC Nucleated RBC % (auto) Anion Gap Estim Creat Clear Calc Estimated GFR POC Glucose 119 H 194 H Random Glucose Calcium Phosphorus Magnesium Total Bilirubin Direct Bilirubin AST ALT Alkaline Phosphatase Total Protein Albumin Random Vancomycin 17.8 Microbiology Microbiology Results: Microbiology 03/26/24 11:16 Blood Culture - Final Blood - Venous Streptococcus viridans group Assessment and Plan (1) Sepsis: Status: Acute (2) Anemia: Status: Acute Plan 73F with AFIB on eliquis, HLD, HTN presented for SNF with hypoxia and hypotension, severe anemia. Admitted to the ICEyear-old female presented to the ED from a longterm on 03/26 with dyspnea following a suspected aspiration event the previous day. Work-up revealed findings consistent with pneumonia, complicated by sepsis. Acute hypoxic resp failure due to PNA, possibly aspiration type -hypoxia resolved, treat underlying PNA blood cultures -strep viridans -possible contminant repeat blood culture neg @48hrs plan: will switch to po augmentin/doxycyline,taper oxygen Transient Hypotension possibly related toanemia, resolved. acute lactic acidosis sec to Transient Hypotension /dehydration , no further trending. Acute blood loss anemia (hemoglobin was 5), +occult blood s/p 3 units of RBC -hold eliquis -PPI Gi consult: Heme + in the ER, but there has been no active GI bleedingdespite her chronic use of Eliquis: h/h stable will check with gi -to reintroduce eliquis. HTN--BP better, on Metoprolol -hold Aldactone and Norvasc Diabetes -hold metformin -sliding scale Transaminitis--trending up ? shock liver lfts improving US shos gallstone without acute imflamatory process Gi following DVT prophylaxis--device, hold eliquis d/t anemia and gib ongoing need -pneumonia /anemia -Gi followup and trial of po antibiotics with monitering for repiratory status and h/h,oxygen taper. Quality Stroke Does the patient have a stroke diagnosis?: No VTE Prior VTE?: No VTE Risk Level:: Medical - moderate - high VTE Device Contraindication: N/A - Device Ordered VTE Drug Contraindication: Treatment Not Tolerated
--- NOTE | 2024-03-30 15:22 | P.CDIM_ITS ---
PROVIDER RESPONSE TEXT: To clarify, the appropriate diagnosis supported by the clinical indicators: Acute QUERY TEXT: PHYSICIAN'S DOCUMENTATION REQUEST Date of Query: 03/30/2024 08:05 AM EST Patient Name: Traci Morris Admit Date: 03/26/2024 Dear Yoana Day MD, A review of the medical record indicates additional documentation may be needed. Please review below and update the documentation accordingly. Clinical Indicators: ICU progress notes: Patient's chest x-ray suggestive of pneumonia, lactic acidosis. LA 5.1 Gastro consult note 03/29 - Patient's lactic level was as high as 7.3 but decreased to 4.6. Clarify which of the following accurately represents the acuity of the lactic acidosis: Possible options might include: Acute Chronic Other (explain) Clinically unable to determine (explain) Thank you, Sadie Urbano, CCS, CDIS Use of terms such as suspected, likely, concern for, or probable (associated with a specific diagnosi s that is being evaluated, monitored, or treated as if it exists) are acceptable and can be coded in the inpatient se tting, when documented at the time of discharge. Please use your independent medical judgment in providing your response. THIS QUERY IS PART OF THE PERMANENT MEDICAL RECORD
[2024-03-30] MEDS: Doxycycline Monohydrate 100 MG CAPSULE PO (16:04)
[2024-03-30] MEDS: Amoxicillin/Potassium Clav 500 MG TABLET PO (16:04)
[2024-03-30 16:58] LABS: Glucose, Whole Blood 158 mg/dL (60-115)
[2024-03-30] MEDS: Gabapentin 100 MG CAPSULE PO (20:29)
[2024-03-30] MEDS: Melatonin 3 MG TABLET 9 MG PO (20:29)
[2024-03-30] MEDS: traZODone HCL 50 MG TABLET PO (20:29)
[2024-03-30] MEDS: Atorvastatin Calcium 80 MG TABLET PO (20:29)
[2024-03-30 21:23] LABS: Glucose, Whole Blood 135 mg/dL (60-115)
--- NOTE | 2024-03-30 23:11 | P.CNID_ITS ---
History of Present Illness Data of Consult Service Date: 03/29/24 Requesting physician: Yoana Day Primary Care Provider: Damien Kay MD [facility] Reason for consult: left pneumonia She presents with shortness of breath /cough/fatigue. She is not on oxygen. She has left base infiltrate. Review of Systems 2 Review of Systems: Yes all other systems are reviewed and are negative PMFSH Family History Family history: reviewed and not pertinent Social History Social History Household Members: Unknown / Unable to assess Housing: Group Home Patient Tobacco Use Status: Former Tobacco user Tobacco use type: Cigarette e-Cigarette/Vaping Use: Never Used Second Hand Smoke Exposure: No service: No Meds Allergies Allergy/AdvReac Type Severity Reaction Status Date / Time tuberculin, purified protein Allergy Unknown UNK Unverified 03/26/24 12:11 deriva [TB TEST] aspirin [ASA] AdvReac Unknown GI UPSET, Unverified 02/02/20 17:19 stomach upset Active Medications: Current Medications Albuterol/Ipratropium (Albuterol/Iprat 2.5/0.5mg 3 Ml Ampul.Neb) 3 ml INHALE Q4H PRN PRN Reason: Wheezing Last Admin: 03/30/24 17:53 Dose: 3 ml Amoxicillin/Clavulanate Potassium (Amoxicillin/Potassium Clav 500 Mg Tablet) 500 mg PO Q12H [facility] Last Admin: 03/30/24 16:04 Dose: 500 mg Atorvastatin Calcium (Atorvastatin Calcium 80 Mg Tablet) 80 mg PO BEDTIME [facility] Last Admin: 03/30/24 20:29 Dose: 80 mg Clotrimazole (Clotrimazole 1 % Cream 15 Gm Tube) 1 appl TOPICAL DAILY PRN; Protocol PRN Reason: Rash Doxycycline Monohydrate (Doxycycline Monohydrate 100 Mg Capsule) 100 mg PO Q12H [facility] Last Admin: 03/30/24 16:04 Dose: 100 mg Folic Acid (Folic Acid 1 Mg Tablet) 1 mg PO DAILY [facility] Last Admin: 03/30/24 08:00 Dose: 1 mg Gabapentin (Gabapentin 100 Mg Capsule) 100 mg PO BEDTIME [facility] Last Admin: 03/30/24 20:29 Dose: 100 mg Insulin Human Lispro (Insulin Lispro 100 Unit/Ml 3 Ml Vial) 0 unit SUBCUT QIDACHS [facility]; Protocol Last Admin: 03/30/24 21:17 Dose: Not Given Melatonin (Melatonin 3 Mg Tablet) 9 mg PO BEDTIME PRN PRN Reason: Sleep Last Admin: 03/30/24 20:29 Dose: 9 mg Metoprolol Tartrate (Metoprolol Tartrate 25 Mg Tablet) 75 mg PO BID [facility]; Protocol Last Admin: 03/30/24 20:28 Dose: 75 mg Omeprazole (Omeprazole 20 Mg Capsule.Dr) 20 mg PO DAILY@0630 [facility] Last Admin: 03/30/24 06:22 Dose: 20 mg Sertraline HCl (Sertraline Hcl 100 Mg Tablet) 100 mg PO DAILY [facility] Last Admin: 03/30/24 08:00 Dose: 100 mg Sodium Chloride (0.9 % Sodium Chloride Flush 3 Ml Syringe) 3 ml IVFLUSH QSHIFT [facility] Last Admin: 03/30/24 20:29 Dose: 3 ml Trazodone HCl (Trazodone Hcl 50 Mg Tablet) 50 mg PO BEDTIME [facility] Last Admin: 03/30/24 20:29 Dose: 50 mg Vitamin D (Cholecalciferol (Vitamin D3) 25 Mcg Tablet) 25 mcg PO DAILY [facility] Last Admin: 03/30/24 08:00 Dose: 25 mcg Home Medications ?Medication ?Instructions ?Recorded ?Confirmed ?Last Taken ?Type acetaminophen 325 mg tablet 650 mg PO Q6H PRN pain or fever 03/26/24 03/26/24 Unknown History amlodipine 5 mg tablet 5 mg PO DAILY 03/26/24 03/26/24 Unknown History apixaban 5 mg tablet (Eliquis) 5 mg PO BID 03/26/24 03/26/24 03/25/24 19:00 History atorvastatin 80 mg tablet 80 mg PO BEDTIME 03/26/24 03/26/24 Unknown History bisacodyl 10 mg rectal suppository 10 mg OK DAILY PRN Constipation 03/26/24 03/26/24 Unknown History cholecalciferol (vitamin D3) 25 25 mcg PO DAILY 03/26/24 03/26/24 Unknown History mcg (1,000 unit) tablet clotrimazole 1 % topical cream 1 appl topical DAILY PRN Rash 03/26/24 03/26/24 Unknown History esomeprazole magnesium 40 mg 40 mg PO DAILY 03/26/24 03/26/24 Unknown History capsule,delayed release ferrous sulfate 325 mg (65 mg 325 mg PO DAILY 03/26/24 03/26/24 Unknown History iron) tablet folic acid 1 mg tablet 1 mg PO DAILY 03/26/24 03/26/24 Unknown History gabapentin 100 mg capsule 100 mg PO BEDTIME 03/26/24 03/26/24 Unknown History loperamide 2 mg capsule 2 mg PO Q6H PRN Loose Stool 03/26/24 03/26/24 Unknown History melatonin 5 mg tablet 10 mg PO BEDTIME 03/26/24 03/26/24 Unknown History metformin 500 mg tablet 500 mg PO BID 03/26/24 03/26/24 Unknown History metoprolol tartrate 25 mg tablet 75 mg PO BID 03/26/24 03/26/24 Unknown History omega 1-htd-pfp-fish oil 1,000 mg 1 cap PO DAILY 03/26/24 03/26/24 Unknown History (120 mg-180 mg) capsule (Fish Oil) sennosides 8.6 mg tablet (senna) 8.6 mg PO DAILY 03/26/24 03/26/24 Unknown History sertraline 50 mg tablet 100 mg PO DAILY 03/26/24 03/26/24 Unknown History sodium phosphates 19 gram-7 118 ml OK DAILY PRN Constipation 03/26/24 03/26/24 Unknown History gram/118 mL enema (Fleet Enema) spironolactone 25 mg tablet 25 mg PO DAILY 03/26/24 03/26/24 Unknown History trazodone 50 mg tablet 50 mg PO BEDTIME 03/26/24 03/26/24 Unknown History Physical Exam 2 Vital Signs: Vital Signs: Last Vital Signs Temp 97.2 F 03/30/24 20:00 Pulse 104 H 03/30/24 20:00 Resp 20 03/30/24 20:00 BP 151/67 H 03/30/24 20:00 Pulse Ox 91 L 03/30/24 20:00 O2 Del Method Nasal Cannula 03/30/24 20:00 O2 Flow Rate 5 03/30/24 20:00 BMI result Body Mass Index 23.2 Const: General: cooperative HEENT: Head: Yes normal to inspection Face and sinus: Yes normal facial exam Mouth: Normal oral and palatal mucosa present Teeth and gingiva: d entition normal Eyes: General: appearance normal, both eyes and all related structures P upils: Equal, round and reactive pupils present Resp: Other: wheeze left base Cardio: Rate: regular rate Rhythm: regular rhythm GI: Palpation (GI): Soft to palpation and nontender : General: Yes no CVA tenderness Back/Spine/Pelvis: Back: no CVA tenderness Skin: General skin exam: no rashes or lesions noted Neuro: General: moves all extremities Cranial nerves: Yes Equal, round and reactive pupils present Extrem: General: Yes normal to inspection Psych: Appearance: grossly normal Results Labs 03/30/24 05:18 03/30/24 05:18 Labs: Short CBC 03/30/24 Range/Units 05:18 WBC 11.5 H (4.8-10.8) X10*3/uL Hgb 9.8 L (12.0-16.0) g/dl Hct 31.1 L (37.0-47.0) % Plt Count 309 (160-400) X10*3/uL BMP 03/30/24 05:18 Sodium 135 Potassium 4.2 Chloride 107 Carbon Dioxide 18 L BUN 26 H Creatinine 1.03 Calcium 8.8 D Liver Function 03/30/24 Range/Units 05:18 Total Bilirubin 1.1 H (0.0-1.0) mg/dL Direct Bilirubin 0.5 (0.0-0.5) mg/dL AST 72 H (5-31) U/L ALT 312 H (0-31) U/L Alkaline Phosphatase 55 (39-117) U/L Albumin 3.3 L (3.5-5.0) g/dL Microbiology Microbiology Results: Microbiology 03/26/24 11:16 Blood - Venous Blood Culture - Final Streptococcus viridans group 03/27/24 06:32 Blood - Venous Blood Culture - Preliminary No growth after 48 hours. 03/27/24 06:32 Blood - Venous Blood Culture - Preliminary No growth after 48 hours. 03/26/24 10:52 Blood - Venous Blood Culture - Preliminary No growth after 48 hours. Assessment and Plan (1) Sepsis: Qualifiers: Acute respiratory failure type: with hypoxia Severe sepsis shock status: unspecified Status: Acute Plan 3-5 d IV antibiotics such as Ceftriaxone and Doxycycline and then po Augmentin and Doxycycline for total 14 days.
[2024-03-31] VITALS (8 sets, daily range): BP systolic 119–153; BP diastolic 53–68; PULSE 76–96; RESP 16–24; TEMP 36.1–36.5; O2SAT 92–97; BMI 22.7
[2024-03-31] MEDS: Doxycycline Monohydrate 100 MG CAPSULE PO ×2 (03:20→14:56)
[2024-03-31] MEDS: Amoxicillin/Potassium Clav 500 MG TABLET PO ×2 (03:20→14:56)
[2024-03-31 06:40] LABS: MANUAL DIFF FLAG NO
[2024-03-31 06:52] LABS: Basophils Percent Auto 0.2 % (0-2); Eosinophils Absolute Auto 0.1 X10*3/uL (0.0-0.4); Eosinophils Percent Auto 0.3 % (0-4); Hematocrit 34.7 % (37.0-47.0); Hemoglobin 10.6 g/dl (12.0-16.0); Imm Gran Abs Auto 0.07 X10*3/uL (0.00-0.03); Imm Gran Pct Auto 0.5 % (0.0-0.4); Lymphocytes Absolute Auto 1.6 X10*3/uL (1.2-4.9); Lymphocytes Percent Auto 11.1 % (20-40); Mean Corpuscular HGB Conc 30.5 g/dl (31.0-35.0); Mean Corpuscular Hemoglobin 26.7 pg (27.0-33.0); Mean Corpuscular Volume 87.4 fL (80.0-98.0); Mean Platelet Volume 11.7 fL (9.4-12.3); Monocytes Absolute Auto 1.3 X10*3/uL (0.1-1.2); Monocytes Percent Auto 9.3 % (2-11); NRBC Pct Auto 0.3 /100WBC (0.0-0.2); Neutrophils Absolute Auto 11.4 x10*3/uL (2.0-8.3); Neutrophils Percent Auto 78.6 % (45-73); Platelet Count 336 X10*3/uL (160-400); Red Blood Count 3.97 X10*6/uL (4.20-5.50); Red Cell Distribution Width 16.6 % (11.0-16.0); White Blood Count 14.5 X10*3/uL (4.8-10.8)
[2024-03-31 07:01] LABS: Anion Gap 15 (12-20); Blood Urea Nitrogen 25 mg/dL (9-16); Calcium 9.2 mg/dL (8.4-10.2); Carbon Dioxide 18 mmol/L (22-29); Chloride 105 mmol/L (96-108); Creatinine Clr Calc Pharmacy 42.8; Estimated Glomerular Filt Rate 59; Glucose Random 139 mg/dL (60-115); Phosphorus 3.3 mg/dL (2.7-4.5); Potassium 4.2 mmol/L (3.3-5.1); Sodium 134 mmol/L (135-145)
[2024-03-31 07:24] LABS: Glucose, Whole Blood 128 mg/dL (60-115)
[2024-03-31] MEDS: Cholecalciferol (Vitamin D3) 25 MCG TABLET PO (08:16)
[2024-03-31] MEDS: Metoprolol Tartrate 25 MG TABLET 75 MG PO ×2 (08:16→20:30)
[2024-03-31] MEDS: Sertraline HCL 100 MG TABLET PO (08:17)
[2024-03-31] MEDS: 0.9 % Sodium Chloride Flush 3 ML SYRINGE IVFLUSH ×2 (08:17→20:31)
[2024-03-31] MEDS: Folic Acid 1 MG TABLET PO (08:17)
[2024-03-31 11:13] LABS: Glucose, Whole Blood 276 mg/dL (60-115)
[2024-03-31] MEDS: Insulin Lispro 100 UNIT/ML 3 ML VIAL SUBCUT (12:41)
--- NOTE | 2024-03-31 14:58 | P.PNIM_ITS ---
Subjective Subjective Date of Service: 03/31/24 Interval History: penumonia Review of Systems sob improving Physical Exam 2 Vital Signs: Vital Signs: Last Vital Signs Temp 97.0 F 03/31/24 11:30 Pulse 80 03/31/24 11:30 Resp 24 H 03/31/24 11:30 BP 119/60 03/31/24 11:30 Pulse Ox 97 03/31/24 11:30 O2 Del Method Nasal Cannula 03/31/24 11:30 O2 Flow Rate 2 03/31/24 11:30 BMI result Body Mass Index 22.7 General: , oriented to self, place no acute distress Resp: air netry fair ,somewhat diminshed at bases. CVS: S1,S2,RRR GI: +BS, NT, no distention Skin: No rash Neuro: motor grossly intact Psych: appropriate affect Objective Data Active Medications Albuterol/Ipratropium (Albuterol/Iprat 2.5/0.5mg 3 Ml Ampul.Neb) 3 ml INHALE Q4H PRN PRN Reason: Wheezing Last Admin: 03/30/24 17:53 Dose: 3 ml Documented By: ROSY Amoxicillin/Clavulanate Potassium (Amoxicillin/Potassium Clav 500 Mg Tablet) 500 mg PO Q12H [facility] Last Admin: 03/31/24 14:56 Dose: 500 mg Documented By: CLAU Atorvastatin Calcium (Atorvastatin Calcium 80 Mg Tablet) 80 mg PO BEDTIME [facility] Last Admin: 03/30/24 20:29 Dose: 80 mg Documented By: HERSON Clotrimazole (Clotrimazole 1 % Cream 15 Gm Tube) 1 appl TOPICAL DAILY PRN; Protocol PRN Reason: Rash Doxycycline Monohydrate (Doxycycline Monohydrate 100 Mg Capsule) 100 mg PO Q12H [facility] Last Admin: 03/31/24 14:56 Dose: 100 mg Documented By: CLAU Folic Acid (Folic Acid 1 Mg Tablet) 1 mg PO DAILY [facility] Last Admin: 03/31/24 08:17 Dose: 1 mg Documented By: CLAU Gabapentin (Gabapentin 100 Mg Capsule) 100 mg PO BEDTIME [facility] Last Admin: 03/30/24 20:29 Dose: 100 mg Documented By: HERSON Insulin Human Lispro (Insulin Lispro 100 Unit/Ml 3 Ml Vial) 0 unit SUBCUT QIDACHS [facility]; Protocol Last Admin: 03/31/24 12:41 Dose: 6 unit Documented By: CLAU Melatonin (Melatonin 3 Mg Tablet) 9 mg PO BEDTIME PRN PRN Reason: Sleep Last Admin: 03/30/24 20:29 Dose: 9 mg Documented By: HERSON Metoprolol Tartrate (Metoprolol Tartrate 25 Mg Tablet) 75 mg PO BID [facility]; Protocol Last Admin: 03/31/24 08:16 Dose: 75 mg Documented By: CLAU Omeprazole (Omeprazole 20 Mg Capsule.Dr) 20 mg PO DAILY@0630 [facility] Last Admin: 03/31/24 07:08 Dose: Not Given Documented By: HERSON Non-Admin Reason: Patient Refused Sertraline HCl (Sertraline Hcl 100 Mg Tablet) 100 mg PO DAILY [facility] Last Admin: 03/31/24 08:17 Dose: 100 mg Documented By: CLAU Sodium Chloride (0.9 % Sodium Chloride Flush 3 Ml Syringe) 3 ml IVFLUSH QSHIFT [facility] Last Admin: 03/31/24 08:17 Dose: 3 ml Documented By: CLAU Trazodone HCl (Trazodone Hcl 50 Mg Tablet) 50 mg PO BEDTIME [facility] Last Admin: 03/30/24 20:29 Dose: 50 mg Documented By: HERSON Vitamin D (Cholecalciferol (Vitamin D3) 25 Mcg Tablet) 25 mcg PO DAILY [facility] Last Admin: 03/31/24 08:16 Dose: 25 mcg Documented By: CLAU Labs 03/31/24 06:35 03/31/24 06:35 Labs: Laboratory Results - last 24 hr 03/30/24 03/30/24 03/31/24 16:49 21:14 06:35 MCV 87.4 MCH 26.7 L MCHC 30.5 L RDW 16.6 H Plt Count 336 MPV 11.7 Immature Gran % (Auto) 0.5 H Neut % (Auto) 78.6 H Lymph % (Auto) 11.1 L [place] % (Auto) 9.3 Eos % (Auto) 0.3 Baso % (Auto) 0.2 Lymph # (Auto) 1.6 [place] # (Auto) 1.3 H Eos # (Auto) 0.1 Baso # (Auto) 0.0 Abs Immat Gran (auto) 0.07 H Absolute Neuts (auto) 11.4 H Absolute Nucleated RBC 0.050 H Nucleated RBC % (auto) 0.3 H Anion Gap 15 Estim Creat Clear Calc 42.8 Estimated GFR 59 POC Glucose 158 H 135 H Random Glucose 139 H Calcium 9.2 Phosphorus 3.3 Magnesium 2.0 03/31/24 03/31/24 07:20 11:07 MCV MCH MCHC RDW Plt Count MPV Immature Gran % (Auto) Neut % (Auto) Lymph % (Auto) [place] % (Auto) Eos % (Auto) Baso % (Auto) Lymph # (Auto) [place] # (Auto) Eos # (Auto) Baso # (Auto) Abs Immat Gran (auto) Absolute Neuts (auto) Absolute Nucleated RBC Nucleated RBC % (auto) Anion Gap Estim Creat Clear Calc Estimated GFR POC Glucose 128 H 276 H Random Glucose Calcium Phosphorus Magnesium Microbiology Microbiology Results: Microbiology 03/26/24 10:52 Blood Culture - Final Blood - Venous No growth after 5 days. Assessment and Plan (1) Sepsis: Status: Acute (2) Anemia: Status: Acute Plan 73F with AFIB on eliquis, HLD, HTN presented for SNF with hypoxia and hypotension, severe anemia. Admitted to the ICEyear-old female [facility] with dyspnea following a suspected aspiration event the previous day. Work-up revealed findings consistent with pneumonia, complicated by sepsis. Acute hypoxic resp failure due to PNA, possibly aspiration type -hypoxia resolved, treat underlying PNA blood cultures -strep viridans -possible contminant repeat blood culture neg @48hrs plan: will switch to po augmentin/doxycyline,taper oxygen Transient Hypotension possibly related toanemia, resolved. acute lactic acidosis sec to Transient Hypotension /dehydration , no further trending. Acute blood loss anemia (hemoglobin was 5), +occult blood s/p 3 units of RBC -hold eliquis -PPI Gi consult: Heme + in the ER, but there has been no active GI bleedingdespite her chronic use of Eliquis: h/h stable d/w GI -hold eliquis for 1 week. HTN--BP better, on Metoprolol hold Aldactone and Norvasc. Diabetes-hold metformin -sliding scale Transaminitis--trending up ? shock liver lfts improving US shos gallstone without acute imflamatory process Gi following DVT prophylaxis--device, hold eliquis d/t anemia and gib ongoing need -pneumonia /anemia -Gi followup and trial of po antibiotics with monitering for repiratory status and h/h,oxygen taper. Quality Stroke Does the patient have a stroke diagnosis?: No VTE Prior VTE?: No VTE Risk Level:: Medical - moderate - high VTE Device Contraindication: N/A - Device Ordered VTE Drug Contraindication: Treatment Not Tolerated
[2024-03-31 16:46] LABS: Glucose, Whole Blood 113 mg/dL (60-115)
[2024-03-31] MEDS: Atorvastatin Calcium 80 MG TABLET PO (20:30)
[2024-03-31] MEDS: Gabapentin 100 MG CAPSULE PO (20:30)
[2024-03-31] MEDS: traZODone HCL 50 MG TABLET PO (20:30)
[2024-03-31] MEDS: Melatonin 3 MG TABLET 9 MG PO (20:30)
[2024-03-31 21:46] LABS: Glucose, Whole Blood 131 mg/dL (60-115)
[2024-04-01] VITALS (10 sets, daily range): BP systolic 125–153; BP diastolic 52–72; PULSE 75–98; RESP 17–28; TEMP 36–36.8; O2SAT 87–95; BMI 24.4
[2024-04-01] MEDS: Doxycycline Monohydrate 100 MG CAPSULE PO ×2 (03:20→14:04)
[2024-04-01] MEDS: Amoxicillin/Potassium Clav 500 MG TABLET PO ×2 (03:20→14:04)
[2024-04-01] MEDS: Omeprazole 20 MG CAPSULE.DR PO (05:29)
[2024-04-01 07:25] LABS: Glucose, Whole Blood 131 mg/dL (60-115)
[2024-04-01] MEDS: Metoprolol Tartrate 25 MG TABLET 75 MG PO ×2 (08:03→22:20)
[2024-04-01] MEDS: 0.9 % Sodium Chloride Flush 3 ML SYRINGE IVFLUSH ×3 (08:03→22:43)
[2024-04-01] MEDS: Cholecalciferol (Vitamin D3) 25 MCG TABLET PO (08:04)
[2024-04-01] MEDS: Folic Acid 1 MG TABLET PO (08:04)
[2024-04-01] MEDS: Sertraline HCL 100 MG TABLET PO (08:04)
[2024-04-01 08:16] LABS: MANUAL DIFF FLAG NO
[2024-04-01 08:19] LABS: Basophils Percent Auto 0.1 % (0-2); Eosinophils Absolute Auto 0.1 X10*3/uL (0.0-0.4); Eosinophils Percent Auto 0.4 % (0-4); Hematocrit 32.1 % (37.0-47.0); Hemoglobin 10.2 g/dl (12.0-16.0); Imm Gran Abs Auto 0.08 X10*3/uL (0.00-0.03); Imm Gran Pct Auto 0.6 % (0.0-0.4); Lymphocytes Absolute Auto 1.4 X10*3/uL (1.2-4.9); Mean Corpuscular HGB Conc 31.8 g/dl (31.0-35.0); Mean Corpuscular Hemoglobin 27.3 pg (27.0-33.0); Mean Corpuscular Volume 85.8 fL (80.0-98.0); Mean Platelet Volume 11.5 fL (9.4-12.3); Monocytes Absolute Auto 1.3 X10*3/uL (0.1-1.2); Monocytes Percent Auto 9.8 % (2-11); NRBC Pct Auto 0.4 /100WBC (0.0-0.2); Neutrophils Absolute Auto 10.6 x10*3/uL (2.0-8.3); Neutrophils Percent Auto 79.1 % (45-73); Platelet Count 375 X10*3/uL (160-400); Red Blood Count 3.74 X10*6/uL (4.20-5.50); Red Cell Distribution Width 16.6 % (11.0-16.0); White Blood Count 13.5 X10*3/uL (4.8-10.8)
[2024-04-01 08:40] LABS: Anion Gap 11 (12-20); Blood Urea Nitrogen 24 mg/dL (9-16); Calcium 8.7 mg/dL (8.4-10.2); Carbon Dioxide 20 mmol/L (22-29); Chloride 105 mmol/L (96-108); Creatinine Clr Calc Pharmacy 51.2; Estimated Glomerular Filt Rate > 60; Glucose Random 163 mg/dL (60-115); Magnesium 1.9 mg/dL (1.6-2.6); Phosphorus 3.2 mg/dL (2.7-4.5); Potassium 4.3 mmol/L (3.3-5.1); Sodium 132 mmol/L (135-145)
--- NOTE | 2024-04-01 10:44 | MHC.CM.PN ---
Per ROUNDS discussion, Patient is not yet medically cleared for dc (tapering O2); returning to LTC is the goal and CM will continue to follow.
[2024-04-01 11:18] LABS: Glucose, Whole Blood 177 mg/dL (60-115)
--- NOTE | 2024-04-01 13:01 | PC.NURSE ---
Patient RR 24-28 upon assessment. 02 85-87% on 2L. 02 titrated to 4L. At this time patient's 02 93%. notified, new order for chest x ray.
--- NOTE | 2024-04-01 14:10 | P.PNIM_ITS ---
Subjective Subjective Date of Service: 04/01/24 Interval History: sob ,hypoxia Review of Systems sob slightly more , unable to go off oxygen no cough Physical Exam 2 Vital Signs: Vital Signs: Last Vital Signs Temp 97.9 F 04/01/24 11:38 Pulse 90 04/01/24 11:38 Resp 28 H 04/01/24 11:38 BP 140/66 H 04/01/24 11:38 Pulse Ox 93 04/01/24 13:10 O2 Del Method Nasal Cannula 04/01/24 13:10 O2 Flow Rate 4 04/01/24 13:10 BMI result Body Mass Index 24.4 General: , oriented to self, place,somewhat sob Resp: air netry diminshed at bases ,has rales at bases. CVS: S1,S2,RRR GI: +BS, NT, no distention Skin: No rash, has 1+ edema Neuro: motor grossly intact Psych: appropriate affect Objective Data Active Medications Albuterol/Ipratropium (Albuterol/Iprat 2.5/0.5mg 3 Ml Ampul.Neb) 3 ml INHALE Q4H PRN PRN Reason: Wheezing Last Admin: 03/30/24 17:53 Dose: 3 ml Documented By: ROSY Amoxicillin/Clavulanate Potassium (Amoxicillin/Potassium Clav 500 Mg Tablet) 500 mg PO Q12H [facility] Last Admin: 04/01/24 14:04 Dose: 500 mg Documented By: DYLON Atorvastatin Calcium (Atorvastatin Calcium 80 Mg Tablet) 80 mg PO BEDTIME [facility] Last Admin: 03/31/24 20:30 Dose: 80 mg Documented By: HERSON Clotrimazole (Clotrimazole 1 % Cream 15 Gm Tube) 1 appl TOPICAL DAILY PRN; Protocol PRN Reason: Rash Doxycycline Monohydrate (Doxycycline Monohydrate 100 Mg Capsule) 100 mg PO Q12H [facility] Last Admin: 04/01/24 14:04 Dose: 100 mg Documented By: DYLON Folic Acid (Folic Acid 1 Mg Tablet) 1 mg PO DAILY [facility] Last Admin: 04/01/24 08:04 Dose: 1 mg Documented By: DYLON Furosemide (Furosemide 20 Mg/2 Ml Vial) 20 mg IVPUSH BID@0900,1800 [facility]; Protocol Gabapentin (Gabapentin 100 Mg Capsule) 100 mg PO BEDTIME [facility] Last Admin: 03/31/24 20:30 Dose: 100 mg Documented By: HERSON Insulin Human Lispro (Insulin Lispro 100 Unit/Ml 3 Ml Vial) 0 unit SUBCUT QIDACHS [facility]; Protocol Last Admin: 04/01/24 12:56 Dose: Not Given Documented By: DYLON Non-Admin Reason: poor po intake Melatonin (Melatonin 3 Mg Tablet) 9 mg PO BEDTIME PRN PRN Reason: Sleep Last Admin: 03/31/24 20:30 Dose: 9 mg Documented By: HERSON Metoprolol Tartrate (Metoprolol Tartrate 25 Mg Tablet) 75 mg PO BID [facility]; Protocol Last Admin: 04/01/24 08:03 Dose: 75 mg Documented By: DYLON Omeprazole (Omeprazole 20 Mg Capsule.Dr) 20 mg PO DAILY@0630 [facility] Last Admin: 04/01/24 05:29 Dose: 20 mg Documented By: ANTOIC Sertraline HCl (Sertraline Hcl 100 Mg Tablet) 100 mg PO DAILY [facility] Last Admin: 04/01/24 08:04 Dose: 100 mg Documented By: DYLON Sodium Chloride (0.9 % Sodium Chloride Flush 3 Ml Syringe) 3 ml IVFLUSH QSHIFT [facility] Last Admin: 04/01/24 08:03 Dose: 3 ml Documented By: DYLON Trazodone HCl (Trazodone Hcl 50 Mg Tablet) 50 mg PO BEDTIME [facility] Last Admin: 03/31/24 20:30 Dose: 50 mg Documented By: HERSON Vitamin D (Cholecalciferol (Vitamin D3) 25 Mcg Tablet) 25 mcg PO DAILY [facility] Last Admin: 04/01/24 08:04 Dose: 25 mcg Documented By: DYLON Labs 04/01/24 07:45 04/01/24 07:45 Labs: Laboratory Results - last 24 hr 03/31/24 03/31/24 04/01/24 16:42 21:42 07:14 MCV MCH MCHC RDW Plt Count MPV Immature Gran % (Auto) Neut % (Auto) Lymph % (Auto) [place] % (Auto) Eos % (Auto) Baso % (Auto) Lymph # (Auto) [place] # (Auto) Eos # (Auto) Baso # (Auto) Abs Immat Gran (auto) Absolute Neuts (auto) Absolute Nucleated RBC Nucleated RBC % (auto) Anion Gap Estim Creat Clear Calc Estimated GFR POC Glucose 113 131 H 131 H Random Glucose Calcium Phosphorus Magnesium 04/01/24 04/01/24 07:45 11:13 MCV 85.8 MCH 27.3 MCHC 31.8 RDW 16.6 H Plt Count 375 MPV 11.5 Immature Gran % (Auto) 0.6 H Neut % (Auto) 79.1 H Lymph % (Auto) 10.0 L [place] % (Auto) 9.8 Eos % (Auto) 0.4 Baso % (Auto) 0.1 Lymph # (Auto) 1.4 [place] # (Auto) 1.3 H Eos # (Auto) 0.1 Baso # (Auto) 0.0 Abs Immat Gran (auto) 0.08 H Absolute Neuts (auto) 10.6 H Absolute Nucleated RBC 0.050 H Nucleated RBC % (auto) 0.4 H Anion Gap 11 L Estim Creat Clear Calc 51.2 Estimated GFR > 60 POC Glucose 177 H Random Glucose 163 H Calcium 8.7 Phosphorus 3.2 Magnesium 1.9 Microbiology Microbiology Results: Microbiology 03/27/24 06:32 Blood Culture - Final Blood - Venous No growth after 5 days. 03/27/24 06:32 Blood Culture - Final Blood - Venous No growth after 5 days. 03/26/24 10:52 Blood Culture - Final Blood - Venous No growth after 5 days. Assessment and Plan (1) Sepsis: Status: Acute (2) Anemia: Status: Acute Plan 73F with AFIB on eliquis, HLD, HTN presented for SNF with hypoxia and hypotension, severe anemia. Admitted to the ICEyear-old female presented to the ED from a group home on 03/26 with dyspnea following a suspected aspiration event the previous day. Work-up revealed findings consistent with pneumonia, complicated by sepsis. Acute hypoxic resp failure due to PNA, possibly aspiration type ,also might have component of chf ( etiology unclear) sob and hypoxia seems similar cxr -shows pulm congestion(prelim) ,results pending blood cultures -strep viridans -possible contminant repeat blood culture neg @48hrs plan: will switch to po augmentin/doxycyline,taper oxygen added echo ,daily weight i/o,lasix 20 mg iv bid ,bnp , continue tele and cardiology eval. Transient Hypotension possibly related toanemia, resolved. acute lactic acidosis sec to Transient Hypotension /dehydration , no further trending. Acute blood loss anemia (hemoglobin was 5), +occult blood s/p 3 units of RBC PPI Gi consult: Heme + in the ER, but there has been no active GI bleedingdespite her chronic use of Eliquis: h/h stable d/w GI -hold eliquis for 1 week. HTN--BP better, on Metoprolol,hold Norvasc. Diabetes-hold metformin -sliding scale Transaminitis--trending up ? shock liver lfts improving US shos gallstone without acute imflamatory process Gi following DVT prophylaxis--device, hold eliquis d/t anemia and gib ongoing need -pneumonia /anemia, possible chf -need iv diuretics and oxygen, monitering renal function/electrolytes,monitering for repiratory status and h/h,oxygen taper. Quality Stroke Does the patient have a stroke diagnosis?: No VTE Prior VTE?: No VTE Risk Level:: Medical - moderate - high VTE Device Contraindication: N/A - Device Ordered VTE Drug Contraindication: Treatment Not Tolerated
--- NOTE | 2024-04-01 15:00 | CA_ITS ---
Transthoracic Echocardiogram Patient (Last, First, Middle): Traci Morris K Gender: Female Date of : 1950 Age: 73 Procedure Date: 04/01/2024 Procedure Type: Transthoracic Echocardiogram [place] [facility] [place] Height: 157.48 cm Weight: 60.33 kg BSA: 1.61 m2 Heart Rate: 95 bpm BP: 140 / 66 mmHg Freight Agent: SB Referring MD: Yoana Day MD Symptoms: chf ? Study Quality: Adequate w contrast ECG Rhythm: Sinus Conclusions: - Normal left ventricular cavity size. There is severely increased left ventricular wall thickness. The left ventricular systolic function is moderate to severely decreased. The visually estimated ejection fraction is between 25-30%. Changes consistent with mid LV Takotsubo. - Elevated filling pressures. - The mid anterior, mid inferior, mid anterolateral, mid inferoseptal, mid anteroseptal, and mid inferolateral segments are akinetic. - Normal right ventricular cavity size. There is mildly decreased right ventricular systolic function. Findings Procedure Information Contrast agent, definity, is being given per protocol without apparent complications. Left Ventricle Normal left ventricular cavity size. There is severely increased left ventricular wall thickness. The left ventricular systolic function is moderate to severely decreased. The visually estimated ejection fraction is between 25-30%. There is evidence of regional wall motion abnormalities. Abnormal diastolic function is noted. Spectral Doppler is indicative of a pseudonormal filling pattern. Elevated filling pressures. Wall Motion Rest Echo Findings The mid anterior, mid inferior, mid anterolateral, mid inferoseptal, mid anteroseptal, and mid inferolateral segments are akinetic. Right Ventricle Normal right ventricular cavity size. There is mildly decreased right ventricular systolic function. Atria The left atrium is severely dilated. Aortic Valve There is a normal trileaflet aortic valve. There is mild thickening of the aortic valve. There is no aortic valve stenosis. There is no aortic valve regurgitation. Mitral Valve The mitral valve appears normal. There is mild to moderate mitral valve regurgitation. There is no mitral valve stenosis. Pulmonic Valve The pulmonic valve is likely normal. Tricuspid Valve Normal tricuspid valve structure. There is mild tricuspid valve regurgitation. Tricuspid regurgitation envelope is inadequate for calculation of right ventricular systolic pressure. Mildly elevated right atrial pressure. Great Vessels All visible segments of the aorta are normal in size. Venous The inferior vena cava is normal in size and collapses less than 50% with inspiration. Pericardium/Pleural There is no evidence of pericardial effusion. Prior Study Comparison Changes noted compared to prior study dated: 12/16/2018. EF 25 to 30%. Measurements 2D Linear Measurements IVSd: 1.42 0.6-0.9/0.6-1.0 cm LVIDd: 4.08 3.9-5.3/4.2-5.9 cm LVIDd Index: 2.53 2.4-3.2/2.2-3.1 cm/m2 LVIDs: 3.19 2.0-3.6 cm LVPWd: 1.46 0.7-1.1 cm LA Diam: 4.70 2.7-3.8/3.0-4.0 cm LAIDs Index: 2.92 1.5-2.3 cm/m2 LV Mass: 280.01 67-162/88-224 g LV Mass Index: 173.92 43-95/49-115 g/m2 LVOT Diam: 1.90 3.0+(-)1.3 cm 2D Systolic Function EF 4C: 28.10 >55% EF 2C: 34.80 >55% EF BiP: 34.60 >55% Mitral Valve MV VTI: 0.22 MV Pk Cortes: 1.44 MV Mn Cortes: 0.82 MV Pk Grad: 8.00 MV Mn Grad: 3.00 MV Pk E: 1.29 MV PK A: 0.94 MV Decel Time: 99.00 E/A: 1.40 E'Lateral: 7.18 E'Medial: 3.48 E/E' Med: 37.10 E/E' Lat: 18.00 PHT: 29.00 MVA PHT: 7.59 MVA Continuity: 1.62 Decel [place]: 13.07 MR Vol - PW Dopp: 35.52 MR VTI: 1.48 MR ERO: 24.00 MR Alias Cortes: 0.39 MR RAD: 0.70 LVOT LVOT Pk Cortes: 0.66 LVOT Mn Cortes: 0.41 LVOT VTI: 0.13 LVOT Pk Grad: 2.00 LVOT Mn Grad: 1.00 LVOT Diam: 1.90 LVOT Area: 2.84 Diastolic Function MV Pk E: 1.29 MV Pk A: 0.94 E/A: 1.40 E'Medial: 3.48 E/E' Med: 37.10 E' Laterial: 7.18 E/E' Lat: 18.00 Right Ventricle TAPSE (mm): 19.20 TVS' Cortes: 11.40 Tricuspid Valve TR Pk Cortes: 2.50 TR Pk Grad: 25.00 Great Vessels Aorta Sinus of Valsalva: 2.60 2.0-3.5 cm Ao Asc: 2.80 2.1-3.4 cm Pulmonary Valve PV Pk Cortes: 0.67 Peak PV Grad: 2.00 Updated in Other Vendor System with Status of Final Leonard Ramos MD electronically signed on 04/01/2024 5:57:27 PM with status of Final
[2024-04-01 15:21] LABS: B Type Natriuretic Peptide 3839 pg/mL (<100)
[2024-04-01 16:20] LABS: Glucose, Whole Blood 160 mg/dL (60-115)
[2024-04-01] MEDS: Insulin Lispro 100 UNIT/ML 3 ML VIAL SUBCUT ×2 (16:53→22:25)
[2024-04-01] MEDS: Furosemide 20 MG/2 ML VIAL 40 MG IVPUSH (16:53)
--- NOTE | 2024-04-01 18:15 | PC.NURSE ---
1715 This RN at bedside, upon assessment, pt was tachypneic RR 22-24, O2 increased to 6L NC. increased work of breathing, using accessory muscles. given scheduled meds per JUL. notified and came to bedside.
[2024-04-01 20:35] LABS: Glucose, Whole Blood 178 mg/dL (60-115)
[2024-04-01] MEDS: Furosemide 20 MG/2 ML VIAL IVPUSH (20:52)
[2024-04-01 21:06] LABS: MANUAL DIFF FLAG NO
[2024-04-01 21:15] LABS: Basophils Percent Auto 0.1 % (0-2); Eosinophils Percent Auto 0.1 % (0-4); Hematocrit 30.2 % (37.0-47.0); Hemoglobin 9.5 g/dl (12.0-16.0); Imm Gran Pct Auto 0.7 % (0.0-0.4); Lymphocytes Absolute Auto 0.9 X10*3/uL (1.2-4.9); Lymphocytes Percent Auto 5.7 % (20-40); Mean Corpuscular HGB Conc 31.5 g/dl (31.0-35.0); Mean Corpuscular Volume 85.8 fL (80.0-98.0); Monocytes Absolute Auto 1.2 X10*3/uL (0.1-1.2); Monocytes Percent Auto 7.9 % (2-11); NRBC Pct Auto 0.3 /100WBC (0.0-0.2); Neutrophils Absolute Auto 13.1 x10*3/uL (2.0-8.3); Neutrophils Percent Auto 85.5 % (45-73); Platelet Count 353 X10*3/uL (160-400); Red Blood Count 3.52 X10*6/uL (4.20-5.50); Red Cell Distribution Width 16.4 % (11.0-16.0); White Blood Count 15.3 X10*3/uL (4.8-10.8)
[2024-04-01 21:26] LABS: Anion Gap 12 (12-20); Blood Urea Nitrogen 28 mg/dL (9-16); Calcium 8.9 mg/dL (8.4-10.2); Carbon Dioxide 22 mmol/L (22-29); Chloride 103 mmol/L (96-108); Creatinine Clr Calc Pharmacy 47.9; Estimated Glomerular Filt Rate > 60; Glucose Random 184 mg/dL (60-115); Magnesium 1.8 mg/dL (1.6-2.6); Potassium 3.7 mmol/L (3.3-5.1); Sodium 133 mmol/L (135-145)
[2024-04-01 21:33] LABS: Troponin-I High Sensitivity 47.1 ng/L (<3.5-17.0)
[2024-04-01 21:44] LABS: Lactic Acid 2.1 mmol/L (0.5-2.0)
[2024-04-01] MEDS: traZODone HCL 50 MG TABLET PO (22:16)
[2024-04-01] MEDS: Atorvastatin Calcium 80 MG TABLET PO (22:16)
[2024-04-01] MEDS: Gabapentin 100 MG CAPSULE PO (22:16)
[2024-04-01 23:04] LABS: Reflex Lactate? Lactic Acid Added
[2024-04-02] VITALS (7 sets, daily range): BP systolic 120–143; BP diastolic 53–67; PULSE 78–97; RESP 16–18; TEMP 36–36.6; O2SAT 91–97; BMI 22.2; BMI 23.9
[2024-04-02] MEDS: Amoxicillin/Potassium Clav 500 MG TABLET PO ×2 (03:30→13:56)
[2024-04-02] MEDS: Doxycycline Monohydrate 100 MG CAPSULE PO ×2 (03:30→15:49)
[2024-04-02] MEDS: Omeprazole 20 MG CAPSULE.DR PO (04:58)
[2024-04-02 07:34] LABS: Glucose, Whole Blood 134 mg/dL (60-115)
[2024-04-02 08:26] LABS: MANUAL DIFF FLAG NO
[2024-04-02 08:29] LABS: Basophils Percent Auto 0.1 % (0-2); Eosinophils Absolute Auto 0.1 X10*3/uL (0.0-0.4); Eosinophils Percent Auto 0.4 % (0-4); Hematocrit 30.1 % (37.0-47.0); Hemoglobin 9.5 g/dl (12.0-16.0); Imm Gran Abs Auto 0.09 X10*3/uL (0.00-0.03); Imm Gran Pct Auto 0.7 % (0.0-0.4); Lymphocytes Percent Auto 7.2 % (20-40); Mean Corpuscular HGB Conc 31.6 g/dl (31.0-35.0); Mean Corpuscular Hemoglobin 26.8 pg (27.0-33.0); Mean Platelet Volume 11.2 fL (9.4-12.3); Monocytes Percent Auto 7.5 % (2-11); NRBC Pct Auto 0.1 /100WBC (0.0-0.2); Neutrophils Absolute Auto 11.3 x10*3/uL (2.0-8.3); Neutrophils Percent Auto 84.1 % (45-73); Platelet Count 330 X10*3/uL (160-400); Red Blood Count 3.54 X10*6/uL (4.20-5.50); Red Cell Distribution Width 16.3 % (11.0-16.0); White Blood Count 13.4 X10*3/uL (4.8-10.8)
[2024-04-02 08:54] LABS: Anion Gap 16 (12-20); Blood Urea Nitrogen 25 mg/dL (9-16); Calcium 9.3 mg/dL (8.4-10.2); Carbon Dioxide 23 mmol/L (22-29); Chloride 104 mmol/L (96-108); Creatinine Clr Calc Pharmacy 48.5; Estimated Glomerular Filt Rate > 60; Glucose Random 145 mg/dL (60-115); Magnesium 1.7 mg/dL (1.6-2.6); Phosphorus 3.2 mg/dL (2.7-4.5); Potassium 3.5 mmol/L (3.3-5.1); Sodium 139 mmol/L (135-145)
[2024-04-02] MEDS: Metoprolol Tartrate 25 MG TABLET 75 MG PO ×2 (09:59→21:55)
[2024-04-02] MEDS: 0.9 % Sodium Chloride Flush 3 ML SYRINGE IVFLUSH ×3 (09:59→22:19)
[2024-04-02] MEDS: Cholecalciferol (Vitamin D3) 25 MCG TABLET PO (09:59)
[2024-04-02] MEDS: Sertraline HCL 100 MG TABLET PO (09:59)
[2024-04-02] MEDS: Folic Acid 1 MG TABLET PO (09:59)
[2024-04-02] MEDS: Furosemide 20 MG/2 ML VIAL 40 MG IVPUSH ×2 (10:00→17:20)
[2024-04-02 11:13] LABS: Glucose, Whole Blood 277 mg/dL (60-115)
--- NOTE | 2024-04-02 11:29 | HO.PM.IMPN ---
Subjective Subjective Date of Service: 04/02/24 Interval History: chf , pneumonia Review of Systems sob and oxygen demand somewhat improving seems more comfortable today no fever Physical Exam Vital Signs: Vital Signs: Last Vital Signs Temp 96.8 F 04/02/24 07:37 Pulse 85 04/02/24 07:37 Resp 18 04/02/24 07:37 BP 134/58 L 04/02/24 07:37 Pulse Ox 95 04/02/24 07:37 O2 Del Method Nasal Cannula 04/02/24 07:37 O2 Flow Rate 5 04/02/24 07:37 BMI result Body Mass Index 23.9 General: , oriented to self, place,somewhat sob Resp: air netry diminshed at bases ,has rales at bases. CVS: S1,S2,RRR GI: +BS, NT, no distention Skin: No rash, has 1+ edema Neuro: motor grossly intact Psych: appropriate affect Objective Data Active Medications Albuterol/Ipratropium (Albuterol/Iprat 2.5/0.5mg 3 Ml Ampul.Neb) 3 ml INHALE Q4H PRN PRN Reason: Wheezing Last Admin: 03/30/24 17:53 Dose: 3 ml Documented By: ROSY Amoxicillin/Clavulanate Potassium (Amoxicillin/Potassium Clav 500 Mg Tablet) 500 mg PO Q12H [facility] Last Admin: 04/02/24 03:30 Dose: 500 mg Documented By: JESICA Atorvastatin Calcium (Atorvastatin Calcium 80 Mg Tablet) 80 mg PO BEDTIME [facility] Last Admin: 04/01/24 22:16 Dose: 80 mg Documented By: JESICA Clotrimazole (Clotrimazole 1 % Cream 15 Gm Tube) 1 appl TOPICAL DAILY PRN; Protocol PRN Reason: Rash Doxycycline Monohydrate (Doxycycline Monohydrate 100 Mg Capsule) 100 mg PO Q12H [facility] Last Admin: 04/02/24 03:30 Dose: 100 mg Documented By: JESICA Folic Acid (Folic Acid 1 Mg Tablet) 1 mg PO DAILY [facility] Last Admin: 04/02/24 09:59 Dose: 1 mg Documented By: MERVAT Furosemide (Furosemide 20 Mg/2 Ml Vial) 40 mg IVPUSH BID@0900,1800 [facility], [facility]; Protocol Last Admin: 04/02/24 10:00 Dose: 40 mg Documented By: MERVAT Gabapentin (Gabapentin 100 Mg Capsule) 100 mg PO BEDTIME [facility] Last Admin: 04/01/24 22:16 Dose: 100 mg Documented By: JESICA Insulin Human Lispro (Insulin Lispro 100 Unit/Ml 3 Ml Vial) 0 unit SUBCUT QIDACHS [facility], [facility]; Protocol Last Admin: 04/02/24 10:01 Dose: Not Given Documented By: MERVAT Non-Admin Reason: No Insulin Coverage Melatonin (Melatonin 3 Mg Tablet) 9 mg PO BEDTIME PRN PRN Reason: Sleep Last Admin: 03/31/24 20:30 Dose: 9 mg Documented By: HERSON Metoprolol Tartrate (Metoprolol Tartrate 25 Mg Tablet) 75 mg PO BID [facility]; Protocol Last Admin: 04/02/24 09:59 Dose: 75 mg Documented By: MERVAT Omeprazole (Omeprazole 20 Mg Capsule.Dr) 20 mg PO DAILY@0630 [facility] Last Admin: 04/02/24 04:58 Dose: 20 mg Documented By: JESICA Sertraline HCl (Sertraline Hcl 100 Mg Tablet) 100 mg PO DAILY [facility] Last Admin: 04/02/24 09:59 Dose: 100 mg Documented By: MERVAT Sodium Chloride (0.9 % Sodium Chloride Flush 3 Ml Syringe) [facility] Last Admin: 04/02/24 09:59 Dose: 3 ml Documented By: MERVAT Trazodone HCl (Trazodone Hcl 50 Mg Tablet) 50 mg PO BEDTIME [facility] Last Admin: 04/01/24 22:16 Dose: 50 mg Documented By: JESICA Vitamin D (Cholecalciferol (Vitamin D3) 25 Mcg Tablet) 25 mcg PO DAILY [facility] Last Admin: 04/02/24 09:59 Dose: 25 mcg Documented By: MERVAT Labs 04/02/24 07:54 04/02/24 07:54 Labs: Laboratory Results - last 24 hr 04/01/24 04/01/24 04/01/24 14:24 16:16 20:31 MCV MCH MCHC RDW Plt Count MPV Immature Gran % (Auto) Neut % (Auto) Lymph % (Auto) [place] % (Auto) Eos % (Auto) Baso % (Auto) Lymph # (Auto) [place] # (Auto) Eos # (Auto) Baso # (Auto) Abs Immat Gran (auto) Absolute Neuts (auto) Absolute Nucleated RBC Nucleated RBC % (auto) Anion Gap Estim Creat Clear Calc Estimated GFR POC Glucose 160 H 178 H Random Glucose Lactic Acid Lactic Acid F/U @ 2Hr Calcium Phosphorus Magnesium Troponin I High Sens B-Natriuretic Peptide 3839 H 04/01/24 04/01/24 04/02/24 20:58 23:49 07:30 MCV 85.8 MCH 27.0 MCHC 31.5 RDW 16.4 H Plt Count 353 MPV 11.0 Immature Gran % (Auto) 0.7 H Neut % (Auto) 85.5 H Lymph % (Auto) 5.7 L [place] % (Auto) 7.9 Eos % (Auto) 0.1 Baso % (Auto) 0.1 Lymph # (Auto) 0.9 L [place] # (Auto) 1.2 Eos # (Auto) 0.0 Baso # (Auto) 0.0 Abs Immat Gran (auto) 0.10 H Absolute Neuts (auto) 13.1 H Absolute Nucleated RBC 0.050 H Nucleated RBC % (auto) 0.3 H Anion Gap 12 Estim Creat Clear Calc 47.9 Estimated GFR > 60 POC Glucose 134 H Random Glucose 184 H Lactic Acid 2.1 H* Lactic Acid F/U @ 2Hr 2.0 Calcium 8.9 Phosphorus Magnesium 1.8 Troponin I High Sens 47.1 H B-Natriuretic Peptide 04/02/24 04/02/24 07:54 11:09 MCV 85.0 MCH 26.8 L MCHC 31.6 RDW 16.3 H Plt Count 330 MPV 11.2 Immature Gran % (Auto) 0.7 H Neut % (Auto) 84.1 H Lymph % (Auto) 7.2 L [place] % (Auto) 7.5 Eos % (Auto) 0.4 Baso % (Auto) 0.1 Lymph # (Auto) 1.0 L [place] # (Auto) 1.0 Eos # (Auto) 0.1 Baso # (Auto) 0.0 Abs Immat Gran (auto) 0.09 H Absolute Neuts (auto) 11.3 H Absolute Nucleated RBC 0.020 H Nucleated RBC % (auto) 0.1 Anion Gap 16 Estim Creat Clear Calc 48.5 Estimated GFR > 60 POC Glucose 277 H Random Glucose 145 H Lactic Acid Lactic Acid F/U @ 2Hr Calcium 9.3 Phosphorus 3.2 Magnesium 1.7 Troponin I High Sens B-Natriuretic Peptide Imaging Chest x-ray: Radiologist's impression: Impressions Chest X-Ray 04/01/24 13:00 IMPRESSION: Diffuse interstitial prominence with patchy bilateral airspace opacities, increased within the bilateral upper lobes when compared to the prior examination. Trace left-sided pleural effusion, unchanged. Electronically signed by: Brown Martínez MD 04/01/2024 02:43 PM EST RP Chest X-Ray 04/01/24 20:37 IMPRESSION: 1. There is a stable bilateral interstitial pattern, with appearance favoring moderate pulmonary edema. A bilateral pneumonia and ARDS are less likely differential considerations. Please correlate clinically. Recommend radiographic follow-up to full clearance. 2. A small left pleural effusion is seen. Electronically signed by: Scott Holden MD 04/01/2024 10:16 PM EST RP Microbiology Microbiology Results: Microbiology 03/27/24 06:32 Blood Culture - Final Blood - Venous No growth after 5 days. 03/27/24 06:32 Blood Culture - Final Blood - Venous No growth after 5 days. Assessment and Plan (1) Sepsis: Status: Acute (2) Anemia: Status: Acute Plan 73F with AFIB on eliquis, HLD, HTN presented for SNF with hypoxia and hypotension, severe anemia. Admitted to the ICEyear-old female presented to the ED from a residential on 03/26 with dyspnea following a suspected aspiration event the previous day. Work-up revealed findings consistent with pneumonia, complicated by sepsis. Acute hypoxic resp failure due to PNA, possibly aspiration type ,also might have component of chf ( etiology unclear) sob and hypoxia seems similar cxr -shows pulm congestion(prelim) ,results pending blood cultures -strep viridans -possible contminant repeat blood culture neg @48hrs plan: will switch to po augmentin/doxycyline,taper oxygen added echo ,daily weight i/o,lasix 20 mg iv bid ,bnp , continue tele and cardiology eval. Transient Hypotension possibly related toanemia, resolved. acute lactic acidosis sec to Transient Hypotension /dehydration , no further trending. Acute blood loss anemia (hemoglobin was 5), +occult blood s/p 3 units of RBC PPI Gi consult: Heme + in the ER, but there has been no active GI bleedingdespite her chronic use of Eliquis: h/h stable d/w GI -hold eliquis for 1 week. HTN--BP better, on Metoprolol,hold Norvasc. Diabetes-hold metformin -sliding scale Transaminitis--trending up ? shock liver lfts improving US shos gallstone without acute imflamatory process Gi following DVT prophylaxis--device, hold eliquis d/t anemia and gib ongoing need -pneumonia /anemia, possible chf -need iv diuretics and oxygen, monitering renal function/electrolytes,monitering for repiratory status and h/h,oxygen taper. Quality Stroke Does the patient have a stroke diagnosis?: No VTE Prior VTE?: No VTE Risk Level:: Medical - moderate - high VTE Device Contraindication: N/A - Device Ordered VTE Drug Contraindication: Treatment Not Tolerated
[2024-04-02] MEDS: Insulin Lispro 100 UNIT/ML 3 ML VIAL SUBCUT (12:29)
[2024-04-02 12:36] LABS: Alanine Aminotransferase 101 U/L (0-31); Aspartate Amino Transferase 30 U/L (5-31); Bilirubin Direct 0.4 mg/dL (0.0-0.5); Bilirubin Total 1.1 mg/dL (0.0-1.0); Total Protein 5.7 g/dL (6.5-8.0)
--- NOTE | 2024-04-02 12:38 | PM.CNCAR ---
History of Present Illness History of Present Illness Date of Service: 04/02/24 Requesting physician: Yoana Day Chief complaint: Pneumonia, cardiomyopathy Narrative: [age] year female presenting with aspiration pneumonia. She had very mild troponin elevation. Echocardiography has shown EF 25 30% with mid LV akinesis and changes are consistent with mid LV takotsubo cardiomyopathy. She also had worsening shortness of breath and was noticed to be in congestive heart failure and is currently on IV diuretics. She is saying she is not hungry and has a poor appetite. She has been coughing and bringing up phlegm. No chest pains. Overall her breathing is feeling okay. She is on 5 L oxygen by nasal cannula PMF Family History Family history: reviewed and not pertinent Social History Social History Household Members: Unknown / Unable to assess Housing: [facility] Patient Tobacco Use Status: Former Tobacco user Tobacco use type: Cigarette e-Cigarette/Vaping Use: Never Used Second Hand Smoke Exposure: No service: No Meds Allergies Allergy/AdvReac Type Severity Reaction Status Date / Time tuberculin, purified protein Allergy Unknown UNK Unverified 03/26/24 12:11 deriva [TB TEST] aspirin [ASA] AdvReac Unknown GI UPSET, Unverified 02/02/20 17:19 stomach upset Active Medications: Current Medications Albuterol/Ipratropium (Albuterol/Iprat 2.5/0.5mg 3 Ml Ampul.Neb) 3 ml INHALE Q4H PRN PRN Reason: Wheezing Last Admin: 03/30/24 17:53 Dose: 3 ml Amoxicillin/Clavulanate Potassium (Amoxicillin/Potassium Clav 500 Mg Tablet) 500 mg PO Q12H JAMEE Last Admin: 04/02/24 03:30 Dose: 500 mg Atorvastatin Calcium (Atorvastatin Calcium 80 Mg Tablet) 80 mg PO BEDTIME JAMEE Last Admin: 04/01/24 22:16 Dose: 80 mg Clotrimazole (Clotrimazole 1 % Cream 15 Gm Tube) 1 appl TOPICAL DAILY PRN; Protocol PRN Reason: Rash Doxycycline Monohydrate (Doxycycline Monohydrate 100 Mg Capsule) 100 mg PO Q12H JAMEE Last Admin: 04/02/24 03:30 Dose: 100 mg Folic Acid (Folic Acid 1 Mg Tablet) 1 mg PO DAILY [facility] Last Admin: 04/02/24 09:59 Dose: 1 mg Furosemide (Furosemide 20 Mg/2 Ml Vial) 40 mg IVPUSH BID@0900,1800 [facility]; Protocol Last Admin: 04/02/24 10:00 Dose: 40 mg Gabapentin (Gabapentin 100 Mg Capsule) 100 mg PO BEDTIME [facility] Last Admin: 04/01/24 22:16 Dose: 100 mg Insulin Human Lispro (Insulin Lispro 100 Unit/Ml 3 Ml Vial) 0 unit SUBCUT QIDACHS [facility]; Protocol Last Admin: 04/02/24 12:29 Dose: 6 unit Melatonin (Melatonin 3 Mg Tablet) 9 mg PO BEDTIME PRN PRN Reason: Sleep Last Admin: 03/31/24 20:30 Dose: 9 mg Metoprolol Tartrate (Metoprolol Tartrate 25 Mg Tablet) 75 mg PO BID [facility]; Protocol Last Admin: 04/02/24 09:59 Dose: 75 mg Omeprazole (Omeprazole 20 Mg Capsule.Dr) 20 mg PO DAILY@0630 [facility] Last Admin: 04/02/24 04:58 Dose: 20 mg Sertraline HCl (Sertraline Hcl 100 Mg Tablet) 100 mg PO DAILY [facility] Last Admin: 04/02/24 09:59 Dose: 100 mg Sodium Chloride (0.9 % Sodium Chloride Flush 3 Ml Syringe) [facility] Last Admin: 04/02/24 09:59 Dose: 3 ml Trazodone HCl (Trazodone Hcl 50 Mg Tablet) 50 mg PO BEDTIME [facility] Last Admin: 04/01/24 22:16 Dose: 50 mg Vitamin D (Cholecalciferol (Vitamin D3) 25 Mcg Tablet) 25 mcg PO DAILY [facility] Last Admin: 04/02/24 09:59 Dose: 25 mcg Home Medications ?Medication ?Instructions ?Recorded ?Confirmed ?Last Taken ?Type acetaminophen 325 mg tablet 650 mg PO Q6H PRN pain or fever 03/26/24 03/26/24 Unknown History amlodipine 5 mg tablet 5 mg PO DAILY 03/26/24 03/26/24 Unknown History apixaban 5 mg tablet (Eliquis) 5 mg PO BID 03/26/24 03/26/24 03/25/24 19:00 History atorvastatin 80 mg tablet 80 mg PO BEDTIME 03/26/24 03/26/24 Unknown History bisacodyl 10 mg rectal suppository 10 mg [place] DAILY PRN Constipation 03/26/24 03/26/24 Unknown History cholecalciferol (vitamin D3) 25 25 mcg PO DAILY 03/26/24 03/26/24 Unknown History mcg (1,000 unit) tablet clotrimazole 1 % topical cream 1 appl topical DAILY PRN Rash 03/26/24 03/26/24 Unknown History esomeprazole magnesium 40 mg 40 mg PO DAILY 03/26/24 03/26/24 Unknown History capsule,delayed release ferrous sulfate 325 mg (65 mg 325 mg PO DAILY 03/26/24 03/26/24 Unknown History iron) tablet folic acid 1 mg tablet 1 mg PO DAILY 03/26/24 03/26/24 Unknown History gabapentin 100 mg capsule 100 mg PO BEDTIME 03/26/24 03/26/24 Unknown History loperamide 2 mg capsule 2 mg PO Q6H PRN Loose Stool 03/26/24 03/26/24 Unknown History melatonin 5 mg tablet 10 mg PO BEDTIME 03/26/24 03/26/24 Unknown History metformin 500 mg tablet 500 mg PO BID 03/26/24 03/26/24 Unknown History metoprolol tartrate 25 mg tablet 75 mg PO BID 03/26/24 03/26/24 Unknown History omega 2-onz-gij-fish oil 1,000 mg 1 cap PO DAILY 03/26/24 03/26/24 Unknown History (120 mg-180 mg) capsule (Fish Oil) sennosides 8.6 mg tablet (senna) 8.6 mg PO DAILY 03/26/24 03/26/24 Unknown History sertraline 50 mg tablet 100 mg PO DAILY 03/26/24 03/26/24 Unknown History sodium phosphates 19 gram-7 118 ml [place] DAILY PRN Constipation 03/26/24 03/26/24 Unknown History gram/118 mL enema (Fleet Enema) spironolactone 25 mg tablet 25 mg PO DAILY 03/26/24 03/26/24 Unknown History trazodone 50 mg tablet 50 mg PO BEDTIME 03/26/24 03/26/24 Unknown History Physical Exam Vital Signs: Vital Signs: Last Vital Signs Temp 98 F 04/02/24 11:37 Pulse 90 04/02/24 11:37 Resp 18 04/02/24 11:37 BP 134/55 L 04/02/24 11:37 Pulse Ox 95 04/02/24 11:37 O2 Del Method Nasal Cannula 04/02/24 11:37 O2 Flow Rate 5 04/02/24 11:37 BMI result Body Mass Index 23.9 GENERAL APPEARANCE: Frail lady. On supplemental oxygen. NECK: no carotid bruit, + jugular venous distention. SKIN: no suspicious lesions, warm and dry. HEART: no murmurs, regular rate and rhythm. LUNGS: Crackles. ABDOMEN: soft, nontender. EXTREMITIES: no edema. PERIPHERAL PULSES: equal. NEUROLOGIC: No gross deficits, AAO X 3 Objective Labs and Meds 04/02/24 07:54 04/02/24 07:54 Lab results: Laboratory Results - last 24 hr 04/01/24 04/01/24 04/01/24 14:24 16:16 20:31 WBC RBC Hgb Hct MCV MCH MCHC RDW Plt Count MPV Immature Gran % (Auto) Neut % (Auto) Lymph % (Auto) [place] % (Auto) Eos % (Auto) Baso % (Auto) Lymph # (Auto) [place] # (Auto) Eos # (Auto) Baso # (Auto) Abs Immat Gran (auto) Absolute Neuts (auto) Absolute Nucleated RBC Nucleated RBC % (auto) Sodium Potassium Chloride Carbon Dioxide Anion Gap BUN Creatinine Estim Creat Clear Calc Estimated GFR POC Glucose 160 H 178 H Random Glucose Lactic Acid Lactic Acid F/U @ 2Hr Calcium Phosphorus Magnesium Total Bilirubin Direct Bilirubin AST ALT Troponin I High Sens B-Natriuretic Peptide 3839 H Total Protein Albumin 04/01/24 04/01/24 04/02/24 20:58 23:49 07:30 WBC 15.3 H RBC 3.52 L Hgb 9.5 L Hct 30.2 L MCV 85.8 MCH 27.0 MCHC 31.5 RDW 16.4 H Plt Count 353 MPV 11.0 Immature Gran % (Auto) 0.7 H Neut % (Auto) 85.5 H Lymph % (Auto) 5.7 L [place] % (Auto) 7.9 Eos % (Auto) 0.1 Baso % (Auto) 0.1 Lymph # (Auto) 0.9 L [place] # (Auto) 1.2 Eos # (Auto) 0.0 Baso # (Auto) 0.0 Abs Immat Gran (auto) 0.10 H Absolute Neuts (auto) 13.1 H Absolute Nucleated RBC 0.050 H Nucleated RBC % (auto) 0.3 H Sodium 133 L Potassium 3.7 Chloride 103 Carbon Dioxide 22 Anion Gap 12 BUN 28 H Creatinine 0.91 Estim Creat Clear Calc 47.9 Estimated GFR > 60 POC Glucose 134 H Random Glucose 184 H Lactic Acid 2.1 H* Lactic Acid F/U @ 2Hr 2.0 Calcium 8.9 Phosphorus Magnesium 1.8 Total Bilirubin Direct Bilirubin AST ALT Troponin I High Sens 47.1 H B-Natriuretic Peptide Total Protein Albumin 04/02/24 04/02/24 07:54 11:09 WBC 13.4 H RBC 3.54 L Hgb 9.5 L Hct 30.1 L MCV 85.0 MCH 26.8 L MCHC 31.6 RDW 16.3 H Plt Count 330 MPV 11.2 Immature Gran % (Auto) 0.7 H Neut % (Auto) 84.1 H Lymph % (Auto) 7.2 L [place] % (Auto) 7.5 Eos % (Auto) 0.4 Baso % (Auto) 0.1 Lymph # (Auto) 1.0 L [place] # (Auto) 1.0 Eos # (Auto) 0.1 Baso # (Auto) 0.0 Abs Immat Gran (auto) 0.09 H Absolute Neuts (auto) 11.3 H Absolute Nucleated RBC 0.020 H Nucleated RBC % (auto) 0.1 Sodium 139 Potassium 3.5 Chloride 104 Carbon Dioxide 23 Anion Gap 16 BUN 25 H Creatinine 0.83 Estim Creat Clear Calc 48.5 Estimated GFR > 60 POC Glucose 277 H Random Glucose 145 H Lactic Acid Lactic Acid F/U @ 2Hr Calcium 9.3 Phosphorus 3.2 Magnesium 1.7 Total Bilirubin 1.1 H Direct Bilirubin 0.4 AST 30 ALT 101 H Troponin I High Sens B-Natriuretic Peptide Total Protein 5.7 L Albumin 3.0 L Imaging Radiologist's impression: Impressions Chest X-Ray 04/01/24 13:00 IMPRESSION: Diffuse interstitial prominence with patchy bilateral airspace opacities, increased within the bilateral upper lobes when compared to the prior examination. Trace left-sided pleural effusion, unchanged. Electronically signed by: Brown Martínez MD 04/01/2024 02:43 PM [facility] Chest X-Ray 04/01/24 20:37 IMPRESSION: 1. There is a stable bilateral interstitial pattern, with appearance favoring moderate pulmonary edema. A bilateral pneumonia and ARDS are less likely differential considerations. Please correlate clinically. Recommend radiographic follow-up to full clearance. 2. A small left pleural effusion is seen. Electronically signed by: Scott Holden MD 04/01/2024 10:16 PM [facility] Assessment and Plan (1) Sepsis: Qualifiers: Acute respiratory failure type: with hypoxia Severe sepsis shock status: unspecified Status: Acute (2) Cardiomyopathy: Status: Acute Plan 73 year female with sepsis and stress-induced cardiomyopathy. Very mild troponin elevation and troponin peaked at 47. No chest discomfort. She is somewhat short of breath and appears volume overloaded. Continue IV Lasix 40 mg b.i.d.. Please do not titrate beta-blockers and she should continue the same dose. We will follow along with you. Thank you for allowing me to participate in the care of your patient. Please feel free to contact me if you have any questions. Procedures Date of Service Date of Service: 04/02/24
[2024-04-02 13:59] LABS: Alkaline Phosphatase 54 U/L (39-117)
[2024-04-02 16:17] LABS: Glucose, Whole Blood 121 mg/dL (60-115)
[2024-04-02 20:46] LABS: Glucose, Whole Blood 146 mg/dL (60-115)
[2024-04-02] MEDS: traZODone HCL 50 MG TABLET PO (21:55)
[2024-04-02] MEDS: Gabapentin 100 MG CAPSULE PO (21:55)
[2024-04-02] MEDS: Atorvastatin Calcium 80 MG TABLET PO (21:55)
[2024-04-03] VITALS (8 sets, daily range): BP systolic 127–148; BP diastolic 53–65; PULSE 66–97; RESP 12–20; TEMP 36.3–36.6; O2SAT 2–96; BMI 22.4
[2024-04-03] MEDS: Amoxicillin/Potassium Clav 500 MG TABLET PO ×2 (04:41→14:16)
[2024-04-03] MEDS: Doxycycline Monohydrate 100 MG CAPSULE PO ×2 (04:41→16:13)
[2024-04-03] MEDS: Omeprazole 20 MG CAPSULE.DR PO (04:41)
[2024-04-03 07:42] LABS: Anion Gap 13 (12-20); Blood Urea Nitrogen 23 mg/dL (9-16); Carbon Dioxide 27 mmol/L (22-29); Chloride 104 mmol/L (96-108); Creatinine Clr Calc Pharmacy 46.8; Estimated Glomerular Filt Rate > 60; Glucose Random 149 mg/dL (60-115); Potassium 3.1 mmol/L (3.3-5.1); Sodium 141 mmol/L (135-145)
[2024-04-03 07:49] LABS: B Type Natriuretic Peptide 3070 pg/mL (<100)
[2024-04-03 07:52] LABS: Glucose, Whole Blood 146 mg/dL (60-115)
[2024-04-03 08:13] LABS: Magnesium 1.6 mg/dL (1.6-2.6)
[2024-04-03] MEDS: Potassium Chloride ER 20 MEQ TAB.ER.PRT 40 MEQ PO (08:25)
[2024-04-03] MEDS: Cholecalciferol (Vitamin D3) 25 MCG TABLET PO (09:49)
[2024-04-03] MEDS: Folic Acid 1 MG TABLET PO (09:49)
[2024-04-03] MEDS: Metoprolol Tartrate 25 MG TABLET 75 MG PO ×2 (09:49→20:09)
[2024-04-03] MEDS: Sertraline HCL 100 MG TABLET PO (09:49)
[2024-04-03] MEDS: 0.9 % Sodium Chloride Flush 3 ML SYRINGE IVFLUSH ×3 (09:50→20:10)
[2024-04-03] MEDS: Furosemide 20 MG/2 ML VIAL 40 MG IVPUSH ×2 (09:54→18:00)
[2024-04-03 12:15] LABS: Glucose, Whole Blood 232 mg/dL (60-115)
--- NOTE | 2024-04-03 12:17 | MHC.CM.PN ---
Pt has a guardian: Jair Boyce [phone], guardianship paperwork has been requested.
[2024-04-03] MEDS: Insulin Lispro 100 UNIT/ML 3 ML VIAL SUBCUT ×2 (12:26→20:10)
--- NOTE | 2024-04-03 12:42 | PM.PNCARD ---
Subjective Subjective Date of Service: 04/03/24 Interval history: Seen examined at bedside. Still short of breath. Physical Exam Vital Signs: Last Vital Signs Temp 97.9 F 04/03/24 12:00 Pulse 77 04/03/24 12:00 Resp 12 04/03/24 12:00 BP 127/63 04/03/24 12:00 Pulse Ox 92 04/03/24 12:00 O2 Del Method Nasal Cannula, Humidified O2 04/03/24 12:00 O2 Flow Rate 3 04/03/24 12:00 BMI result Body Mass Index 22.4 GENERAL APPEARANCE: Frail lady. On supplemental oxygen. NECK: no carotid bruit, + jugular venous distention. SKIN: no suspicious lesions, warm and dry. HEART: no murmurs, regular rate and rhythm. LUNGS: Crackles. ABDOMEN: soft, nontender. EXTREMITIES: no edema. PERIPHERAL PULSES: equal. NEUROLOGIC: No gross deficits, AAO X 3 Objective Labs and Meds 04/02/24 07:54 04/03/24 07:02 Lab results: Laboratory Results - last 24 hr 04/02/24 04/02/24 04/02/24 07:54 16:14 20:32 Sodium Potassium Chloride Carbon Dioxide Anion Gap BUN Creatinine Estim Creat Clear Calc Estimated GFR POC Glucose 121 H 146 H Random Glucose Calcium Magnesium Alkaline Phosphatase 54 B-Natriuretic Peptide 04/03/24 04/03/24 04/03/24 07:02 07:47 12:03 Sodium 141 Potassium 3.1 L Chloride 104 Carbon Dioxide 27 Anion Gap 13 BUN 23 H Creatinine 0.86 Estim Creat Clear Calc 46.8 Estimated GFR > 60 POC Glucose 146 H 232 H Random Glucose 149 H Calcium 9.0 Magnesium 1.6 Alkaline Phosphatase B-Natriuretic Peptide 3070 H Progress Note: A&P Assessment and plan (1) Cardiomyopathy: Status: Acute (2) Sepsis: Status: Acute Plan [age] year female who presented with sepsis and had mild troponin elevation. Echocardiography showed [id number] LV dysfunction with mid LV takotsubo cardiomyopathy. She clinically has been in heart failure and is being diuresed. I think we gently diurese her today and potentially change her to oral diuretics tomorrow. Would favor starting her on 40 mg Lasix once a day. Thank you for allowing me to participate in the care of your patient. Please feel free to contact me if you have any questions. Time Spent With Patient Time: Total time managing care of this patient today ____ minutes. Progress Note: Quality Stroke Does the patient have a stroke diagnosis?: No Procedures Date of Service Date of Service: 04/03/24
--- NOTE | 2024-04-03 13:00 | HO.PM.IMPN ---
Subjective Subjective Date of Service: 04/03/24 Interval History: chf Review of Systems sob seems somewaht improving Physical Exam Vital Signs: Vital Signs: Last Vital Signs Temp 97.9 F 04/03/24 12:00 Pulse 77 04/03/24 12:00 Resp 12 04/03/24 12:00 BP 127/63 04/03/24 12:00 Pulse Ox 92 04/03/24 12:00 O2 Del Method Nasal Cannula, Hu midified O2 04/03/24 12:00 O2 Flow Rate 3 04/03/24 12:00 BMI result Body Mass Index 22.4 General: , oriented to self, place,somewhat sob Resp: air netry diminshed at bases ,has rales at bases. CVS: S1,S2,RRR GI: +BS, NT, no distention Skin: No rash, has 1+ edema Neuro: motor grossly intact Psych: appropriate affect Objective Data Active Medications Albuterol/Ipratropium (Albuterol/Iprat 2.5/0.5mg 3 Ml Ampul.Neb) 3 ml INHALE Q4H PRN PRN Reason: Wheezing Last Admin: 03/30/24 17:53 Dose: 3 ml Documented By: ROSY Amoxicillin/Clavulanate Potassium (Amoxicillin/Potassium Clav 500 Mg Tablet) 500 mg PO Q12H [facility] Last Admin: 04/03/24 04:41 Dose: 500 mg Documented By: JESICA Atorvastatin Calcium (Atorvastatin Calcium 80 Mg Tablet) 80 mg PO BEDTIME [facility] Last Admin: 04/02/24 21:55 Dose: 80 mg Documented By: JESICA Clotrimazole (Clotrimazole 1 % Cream 15 Gm Tube) 1 appl TOPICAL DAILY PRN; Protocol PRN Reason: Rash Doxycycline Monohydrate (Doxycycline Monohydrate 100 Mg Capsule) 100 mg PO Q12H [facility] Last Admin: 04/03/24 04:41 Dose: 100 mg Documented By: JESICA Folic Acid (Folic Acid 1 Mg Tablet) 1 mg PO DAILY [facility] Last Admin: 04/03/24 09:49 Dose: 1 mg Documented By: HELEN Furosemide (Furosemide 20 Mg/2 Ml Vial) 40 mg IVPUSH BID@0900,1800 [facility]; Protocol Last Admin: 04/03/24 09:54 Dose: 40 mg Documented By: HELEN Gabapentin (Gabapentin 100 Mg Capsule) 100 mg PO BEDTIME [facility] Last Admin: 04/02/24 21:55 Dose: 100 mg Documented By: JESICA Insulin Human Lispro (Insulin Lispro 100 Unit/Ml 3 Ml Vial) 0 unit SUBCUT QIDACHS [facility]; Protocol Last Admin: 04/03/24 12:26 Dose: 4 unit Documented By: MERVAT Melatonin (Melatonin 3 Mg Tablet) 9 mg PO BEDTIME PRN PRN Reason: Sleep Last Admin: 03/31/24 20:30 Dose: 9 mg Documented By: HERSON Metoprolol Tartrate (Metoprolol Tartrate 25 Mg Tablet) 75 mg PO BID [facility]; Protocol Last Admin: 04/03/24 09:49 Dose: 75 mg Documented By: HELEN Omeprazole (Omeprazole 20 Mg Capsule.Dr) 20 mg PO DAILY@0630 [facility] Last Admin: 04/03/24 04:41 Dose: 20 mg Documented By: JESICA Sertraline HCl (Sertraline Hcl 100 Mg Tablet) 100 mg PO DAILY [facility] Last Admin: 04/03/24 09:49 Dose: 100 mg Documented By: HELEN Sodium Chloride (0.9 % Sodium Chloride Flush 3 Ml Syringe) [facility] Last Admin: 04/03/24 09:50 Dose: 3 ml Documented By: HELEN Trazodone HCl (Trazodone Hcl 50 Mg Tablet) 50 mg PO BEDTIME [facility] Last Admin: 04/02/24 21:55 Dose: 50 mg Documented By: JESICA Vitamin D (Cholecalciferol (Vitamin D3) 25 Mcg Tablet) 25 mcg PO DAILY [facility] Last Admin: 04/03/24 09:49 Dose: 25 mcg Documented By: HELEN Labs 04/02/24 07:54 04/03/24 07:02 Labs: Laboratory Results - last 24 hr 04/02/24 04/02/24 04/02/24 07:54 16:14 20:32 Anion Gap Estim Creat Clear Calc Estimated GFR POC Glucose 121 H 146 H Random Glucose Calcium Magnesium Alkaline Phosphatase 54 B-Natriuretic Peptide 04/03/24 04/03/24 04/03/24 07:02 07:47 12:03 Anion Gap 13 Estim Creat Clear Calc 46.8 Estimated GFR > 60 POC Glucose 146 H 232 H Random Glucose 149 H Calcium 9.0 Magnesium 1.6 Alkaline Phosphatase B-Natriuretic Peptide 3070 H Assessment and Plan (1) Sepsis: Status: Acute (2) Anemia: Status: Acute Plan 73F with AFIB on eliquis, HLD, HTN presented for SNF with hypoxia and hypotension, severe anemia. Admitted to the ICEyear-old female presented to the ED from a retirement on 03/26 with dyspnea following a suspected aspiration event the previous day. Work-up revealed findings consistent with pneumonia, complicated by sepsis. Acute hypoxic resp failure due to PNA, possibly aspiration type ,also might have component of chf ( HfrEF) sob and hypoxia seems similar cxr -shows pulm congestion(prelim) ,results pending blood cultures -strep viridans -possible contminant repeat blood culture neg @48hrs i/o : 1.1 liter negative plan: will switch to po augmentin/doxycyline,taper oxygen added echo ,daily weight i/o,lasix 40 mg iv bid ,bnp , continue tele and cardiology eval noted. Transient Hypotension possibly related toanemia, resolved. acute lactic acidosis sec to Transient Hypotension /dehydration , no further trending. Acute blood loss anemia (hemoglobin was 5), +occult blood s/p 3 units of RBC PPI Gi consult: Heme + in the ER, but there has been no active GI bleedingdespite her chronic use of Eliquis: h/h stable d/w GI -hold eliquis for 1 week. HTN--BP better, on Metoprolol,hold Norvasc. Diabetes-hold metformin -sliding scale Transaminitis--trending up ? shock liver lfts improving US shos gallstone without acute imflamatory process Gi following DVT prophylaxis--device, hold eliquis d/t anemia and gib. ongoing need -pneumonia /anemia, possible chf -need iv diuretics and oxygen, monitering renal function/electrolytes,monitering for repiratory status and h/h,oxygen taper. Quality Stroke Does the patient have a stroke diagnosis?: No VTE Prior VTE?: No VTE Risk Level:: Medical - moderate - high VTE Device Contraindication: N/A - Device Ordered VTE Drug Contraindication: Treatment Not Tolerated
--- NOTE | 2024-04-03 14:05 | MHC.CM.PN ---
Received a copy of pts Guardianship and Conservatorship, now on file.
[2024-04-03 16:37] LABS: Glucose, Whole Blood 127 mg/dL (60-115)
[2024-04-03 19:56] LABS: Glucose, Whole Blood 174 mg/dL (60-115)
[2024-04-03] MEDS: traZODone HCL 50 MG TABLET PO (20:10)
[2024-04-03] MEDS: Gabapentin 100 MG CAPSULE PO (20:10)
[2024-04-03] MEDS: Atorvastatin Calcium 80 MG TABLET PO (20:10)
[2024-04-04] VITALS (8 sets, daily range): BP systolic 138–165; BP diastolic 61–78; PULSE 61–82; RESP 16–20; TEMP 36.2–37.4; O2SAT 90–96
[2024-04-04] MEDS: Doxycycline Monohydrate 100 MG CAPSULE PO ×2 (05:22→15:17)
[2024-04-04] MEDS: Omeprazole 20 MG CAPSULE.DR PO (05:22)
[2024-04-04] MEDS: Amoxicillin/Potassium Clav 500 MG TABLET PO ×2 (05:22→15:17)
[2024-04-04 07:55] LABS: Glucose, Whole Blood 137 mg/dL (60-115)
[2024-04-04] MEDS: Metoprolol Tartrate 25 MG TABLET 75 MG PO ×2 (10:15→20:35)
[2024-04-04] MEDS: Cholecalciferol (Vitamin D3) 25 MCG TABLET PO (10:15)
[2024-04-04] MEDS: Sertraline HCL 100 MG TABLET PO (10:15)
[2024-04-04] MEDS: Folic Acid 1 MG TABLET PO (10:15)
[2024-04-04] MEDS: 0.9 % Sodium Chloride Flush 3 ML SYRINGE IVFLUSH ×3 (10:16→20:35)
--- NOTE | 2024-04-04 10:20 | MHC.CM.PN ---
Per ROUNDS discussion, Patient is not yet medically cleared for dc (Fluid Overload/IV Lasix/pending labs); returning to LTC is the goal and CM will continue to follow.
--- NOTE | 2024-04-04 10:35 | PM.PNCARD ---
Subjective Subjective Date of Service: 04/04/24 Principal diagnosis: CHF, cardiomyopathy Interval history: Patient remains hypertensive. Not very verbal arguing much history. Says she is not short of breath but not able to wean off the oxygen on her. BNP was still elevated yesterday to 3000 range. Review of Systems Review of Systems Yes Unobtainable due to mental status Physical Exam Vital Signs: Last Vital Signs Temp 97.4 F 04/04/24 07:28 Pulse 80 04/04/24 07:28 Resp 20 04/04/24 07:28 BP 165/72 H 04/04/24 07:28 Pulse Ox 96 04/04/24 07:28 O2 Del Method Nasal Cannula 04/04/24 07:28 O2 Flow Rate 3 04/04/24 07:28 BMI result Body Mass Index 22.4 GENERAL APPEARANCE: Frail lady. On supplemental oxygen. NECK: no carotid bruit, + jugular venous distention. SKIN: no suspicious lesions, warm and dry. HEART: no murmurs, regular rate and rhythm. LUNGS: Crackles. ABDOMEN: soft, nontender. EXTREMITIES: no edema. PERIPHERAL PULSES: equal. NEUROLOGIC: No gross deficits, AAO X 3 Objective Labs and Meds 04/02/24 07:54 04/03/24 07:02 Lab results: Laboratory Results - last 24 hr 04/03/24 04/03/24 04/03/24 12:03 16:31 19:43 POC Glucose 232 H 127 H 174 H 04/04/24 07:25 POC Glucose 137 H Progress Note: A&P Assessment and plan (1) Acute CHF: Status: Acute Assessment and Plan: Patient still requiring oxygen and not be able to weaned off the oxygen. Most likely decompensated congestive heart failure. Would repeat chest x-ray as well as BNP. Blood pressure is significantly elevated. Will add guideline based medical therapy with Entresto 24-26 mg b.i.d. to her regimen as well as add Jardiance 10 mg to regimen. Continue diuresed but at 20 mg b.i.d. of Lasix. Strict intake and output chart needs to be pursued. Currently on metoprolol therapy and will continue the same. Overall difficult to converse with the patient not sure as to she understands/comprehends medical care at this point time. Strict intake and output chart needs to be pursued. Continue renal function electrolytes check on the daily basis. Will continue to follow with you. Time Spent With Patient Time: Total time managing care of this patient today ____ minutes. Progress Note: Quality Stroke Does the patient have a stroke diagnosis?: No Procedures Date of Service Date of Service: 04/04/24
[2024-04-04] MEDS: Insulin Lispro 100 UNIT/ML 3 ML VIAL SUBCUT (11:08)
[2024-04-04] MEDS: Empagliflozin 10 MG TABLET PO (11:08)
[2024-04-04] MEDS: Sacubitril/Valsartan 24/26 1 TAB TABLET PO ×2 (11:08→20:34)
[2024-04-04 11:19] LABS: Anion Gap 14 (12-20); Blood Urea Nitrogen 24 mg/dL (9-16); Calcium 9.2 mg/dL (8.4-10.2); Carbon Dioxide 27 mmol/L (22-29); Chloride 103 mmol/L (96-108); Creatinine Clr Calc Pharmacy 36.6; Estimated Glomerular Filt Rate 49; Glucose Random 233 mg/dL (60-115); Potassium 3.3 mmol/L (3.3-5.1); Sodium 141 mmol/L (135-145)
[2024-04-04 11:26] LABS: B Type Natriuretic Peptide 2633 pg/mL (<100)
[2024-04-04 11:34] LABS: Glucose, Whole Blood 206 mg/dL (60-115)
--- NOTE | 2024-04-04 13:28 | P.PNIM_ITS ---
Subjective Subjective Date of Service: 04/04/24 Interval History: chf Review of Systems sob somewhat improving denies any chest pain Physical Exam 2 Vital Signs: Vital Signs: Last Vital Signs Temp 97.6 F 04/04/24 11:10 Pulse 72 04/04/24 11:10 Resp 20 04/04/24 11:10 BP 146/66 H 04/04/24 11:10 Pulse Ox 96 04/04/24 11:10 O2 Del Method Nasal Cannula 04/04/24 11:10 O2 Flow Rate 2 04/04/24 11:10 BMI result Body Mass Index 22.4 General: , oriented to self, place,somewhat sob Resp: air netry diminshed at bases ,has rales at bases. CVS: S1,S2,RRR GI: +BS, NT, no distention Skin: No rash, has 1+ edema Neuro: motor grossly intact Psych: appropriate affect Objective Data Active Medications Albuterol/Ipratropium (Albuterol/Iprat 2.5/0.5mg 3 Ml Ampul.Neb) 3 ml INHALE Q4H PRN PRN Reason: Wheezing Last Admin: 03/30/24 17:53 Dose: 3 ml Documented By: ROSY Amoxicillin/Clavulanate Potassium (Amoxicillin/Potassium Clav 500 Mg Tablet) 500 mg PO Q12H [facility] Last Admin: 04/04/24 05:22 Dose: 500 mg Documented By: JESICA Atorvastatin Calcium (Atorvastatin Calcium 80 Mg Tablet) 80 mg PO BEDTIME [facility] Last Admin: 04/03/24 20:10 Dose: 80 mg Documented By: JESICA Clotrimazole (Clotrimazole 1 % Cream 15 Gm Tube) 1 appl TOPICAL DAILY PRN; Protocol PRN Reason: Rash Doxycycline Monohydrate (Doxycycline Monohydrate 100 Mg Capsule) 100 mg PO Q12H [facility] Last Admin: 04/04/24 05:22 Dose: 100 mg Documented By: JESICA Empagliflozin (Empagliflozin 10 Mg Tablet) 10 mg PO DAILY [facility] Last Admin: 04/04/24 11:08 Dose: 10 mg Documented By: GENEVIEVE Folic Acid (Folic Acid 1 Mg Tablet) 1 mg PO DAILY [facility] Last Admin: 04/04/24 10:15 Dose: 1 mg Documented By: DEYA Furosemide (Furosemide 20 Mg/2 Ml Vial) 20 mg IVPUSH BID [facility]; Protocol Gabapentin (Gabapentin 100 Mg Capsule) 100 mg PO BEDTIME [facility] Last Admin: 04/03/24 20:10 Dose: 100 mg Documented By: JESICA Insulin Human Lispro (Insulin Lispro 100 Unit/Ml 3 Ml Vial) 0 unit SUBCUT QIDACHS [facility]; Protocol Last Admin: 04/04/24 11:08 Dose: 4 unit Documented By: GENEVIEVE Melatonin (Melatonin 3 Mg Tablet) 9 mg PO BEDTIME PRN PRN Reason: Sleep Last Admin: 03/31/24 20:30 Dose: 9 mg Documented By: HERSON Metoprolol Tartrate (Metoprolol Tartrate 25 Mg Tablet) 75 mg PO BID [facility]; Protocol Last Admin: 04/04/24 10:15 Dose: 75 mg Documented By: DEYA Omeprazole (Omeprazole 20 Mg Capsule.Dr) 20 mg PO DAILY@0630 [facility] Last Admin: 04/04/24 05:22 Dose: 20 mg Documented By: JESICA Sacubitril/Valsartan (Sacubitril/Valsartan 1 Tab Tablet) 1 tab PO BID [facility]; Protocol Last Admin: 04/04/24 11:08 Dose: 1 tab Documented By: GENEVIEVE Sertraline HCl (Sertraline Hcl 100 Mg Tablet) 100 mg PO DAILY [facility] Last Admin: 04/04/24 10:15 Dose: 100 mg Documented By: DEYA Sodium Chloride (0.9 % Sodium Chloride Flush 3 Ml Syringe) 3 ml IVFLUSH [facility] Last Admin: 04/04/24 10:16 Dose: 3 ml Documented By: DEYA Trazodone HCl (Trazodone Hcl 50 Mg Tablet) 50 mg PO BEDTIME [facility] Last Admin: 04/03/24 20:10 Dose: 50 mg Documented By: JESICA Vitamin D (Cholecalciferol (Vitamin D3) 25 Mcg Tablet) 25 mcg PO DAILY [facility] Last Admin: 04/04/24 10:15 Dose: 25 mcg Documented By: DEYA Labs 04/02/24 07:54 04/04/24 10:45 Labs: Laboratory Results - last 24 hr 04/03/24 04/03/24 04/04/24 16:31 19:43 07:25 Anion Gap Estim Creat Clear Calc Estimated GFR POC Glucose 127 H 174 H 137 H Random Glucose Calcium B-Natriuretic Peptide 04/04/24 04/04/24 10:45 11:01 Anion Gap 14 Estim Creat Clear Calc 36.6 Estimated GFR 49 POC Glucose 206 H Random Glucose 233 H Calcium 9.2 B-Natriuretic Peptide 2633 H Assessment and Plan (1) Sepsis: Status: Acute (2) Anemia: Status: Acute Plan 73F with AFIB on eliquis, HLD, HTN presented for SNF with hypoxia and hypotension, severe anemia. Admitted to the ICEyear-old female presented to the ED from a custodial on 03/26 with dyspnea following a suspected aspiration event the previous day. Work-up revealed findings consistent with pneumonia, complicated by sepsis. Acute hypoxic resp failure due to PNA, possibly aspiration type ,also might have component of chf ( HfrEF) sob and hypoxia seems similar cxr -repeat today-pulm edema blood cultures -strep viridans -possible contminant repeat blood culture neg @48hrs i/o : needs to be monitered closely echo ef : 25-30%,? Changes consistent with mid LV Takotsubo. plan: daily weight i/o,lasix adjusted 20 mg ivbid,added entersto,jardiance . continue po augmentin/doxycyline(started on 03/30),taper oxygen d/w cardiology -continue to moniter. Transient Hypotension possibly related toanemia, resolved. acute lactic acidosis sec to Transient Hypotension /dehydration , no further trending. Acute blood loss anemia (hemoglobin was 5), +occult blood s/p 3 units of RBC PPI Gi consult: Heme + in the ER, but there has been no active GI bleedingdespite her chronic use of Eliquis: h/h stable d/w GI -hold eliquis for 1 week. HTN--BP better, on Metoprolol,hold Norvasc. Diabetes-hold metformin -sliding scale Transaminitis--trending up ? shock liver lfts improving US shos gallstone without acute imflamatory process DVT prophylaxis--device, hold eliquis d/t anemia and gib. ongoing need -pneumonia /anemia, possible chf -need iv diuretics and oxygen, monitering renal function/electrolytes,monitering for repiratory status and h/h,oxygen taper. patient guardian updated yesterdayin detail, patient is full code. Quality Stroke Does the patient have a stroke diagnosis?: No VTE Prior VTE?: No VTE Risk Level:: Medical - moderate - high VTE Device Contraindication: N/A - Device Ordered VTE Drug Contraindication: Treatment Not Tolerated
[2024-04-04] MEDS: Potassium Chloride ER 20 MEQ TAB.ER.PRT PO (15:23)
[2024-04-04 16:35] LABS: Glucose, Whole Blood 125 mg/dL (60-115)
[2024-04-04] MEDS: Atorvastatin Calcium 80 MG TABLET PO (20:34)
[2024-04-04] MEDS: Gabapentin 100 MG CAPSULE PO (20:34)
[2024-04-04] MEDS: Melatonin 3 MG TABLET 9 MG PO (20:34)
[2024-04-04] MEDS: traZODone HCL 50 MG TABLET PO (20:34)
[2024-04-04] MEDS: Furosemide 20 MG/2 ML VIAL IVPUSH (20:35)
[2024-04-04 20:46] LABS: Glucose, Whole Blood 134 mg/dL (60-115)
[2024-04-05] VITALS (8 sets, daily range): BP systolic 120–158; BP diastolic 56–67; PULSE 57–86; RESP 16–23; TEMP 36.2–36.6; O2SAT 90–97; BMI 22.4
[2024-04-05] MEDS: Amoxicillin/Potassium Clav 500 MG TABLET PO ×2 (01:16→14:59)
[2024-04-05] MEDS: Doxycycline Monohydrate 100 MG CAPSULE PO ×2 (04:39→14:59)
[2024-04-05] MEDS: Omeprazole 20 MG CAPSULE.DR PO (04:39)
[2024-04-05 07:00] LABS: Glucose, Whole Blood 135 mg/dL (60-115)
[2024-04-05] MEDS: Sacubitril/Valsartan 24/26 1 TAB TABLET PO ×2 (07:56→19:50)
[2024-04-05] MEDS: Sertraline HCL 100 MG TABLET PO (07:56)
[2024-04-05] MEDS: Metoprolol Tartrate 25 MG TABLET 75 MG PO ×2 (07:56→19:51)
[2024-04-05] MEDS: 0.9 % Sodium Chloride Flush 3 ML SYRINGE IVFLUSH ×3 (07:57→19:52)
[2024-04-05] MEDS: Empagliflozin 10 MG TABLET PO (07:57)
[2024-04-05] MEDS: Cholecalciferol (Vitamin D3) 25 MCG TABLET PO (07:57)
[2024-04-05] MEDS: Folic Acid 1 MG TABLET PO (07:57)
--- NOTE | 2024-04-05 08:34 | PM.PNCARD ---
Subjective Subjective Date of Service: 04/05/24 Principal diagnosis: CHF, cardiomyopathy Interval history: Patient is looking better not utilizing oxygen and not short of breath. Intake and output chart is inaccurate. Patient is tolerating her medications okay. She says she is not short of breath. Review of Systems Constitutional: Reports lethargy Cardiovascular: Denies leg edema and Reports dyspnea on exertion Respiratory: Reports no additional respiratory complaints and Reports dyspnea on exertion Gastrointestinal: Reports no additional gastrointestinal complaints Musculoskeletal: Reports no additional musculoskeletal complaints Reports system reviewed and no additional complaints, except as documented Physical Exam Vital Signs: Last Vital Signs Temp 97.9 F 04/05/24 07:15 Pulse 62 04/05/24 07:15 Resp 20 04/05/24 07:15 BP 140/63 H 04/05/24 07:15 Pulse Ox 92 04/05/24 07:15 O2 Del Method Nasal Cannula 04/05/24 07:15 O2 Flow Rate 1 04/05/24 07:15 BMI result Body Mass Index 22.4 GENERAL APPEARANCE: Frail lady. On supplemental oxygen. NECK: no carotid bruit, SKIN: no suspicious lesions, warm and dry. HEART: no murmurs, regular rate and rhythm. LUNGS: Crackles. ABDOMEN: soft, nontender. EXTREMITIES: no edema. PERIPHERAL PULSES: equal. NEUROLOGIC: No gross deficits, AAO X 3 Objective Labs and Meds 04/02/24 07:54 04/04/24 10:45 Lab results: Laboratory Results - last 24 hr 04/04/24 04/04/24 04/04/24 10:45 11:01 16:32 Sodium 141 Potassium 3.3 Chloride 103 Carbon Dioxide 27 Anion Gap 14 BUN 24 H Creatinine 1.10 Estim Creat Clear Calc 36.6 Estimated GFR 49 POC Glucose 206 H 125 H Random Glucose 233 H Calcium 9.2 B-Natriuretic Peptide 2633 H 04/04/24 04/05/24 20:42 06:56 Sodium Potassium Chloride Carbon Dioxide Anion Gap BUN Creatinine Estim Creat Clear Calc Estimated GFR POC Glucose 134 H 135 H Random Glucose Calcium B-Natriuretic Peptide Imaging Radiologist's impression: Impressions Chest X-Ray 04/04/24 11:04 IMPRESSION: Pulmonary edema and bilateral small to pleural effusions. Superimposed multifocal pneumonia cannot be excluded. Electronically signed by: Wes Ga MD 04/04/2024 11:46 AM EST Progress Note: A&P Assessment and plan (1) Acute CHF: Status: Acute Assessment and Plan: Patient is doing better although difficult to assess overall her heart failure status. I will continue with IV diuresis for 1 more day. Continue current neurohormonal modulation with Entresto, Jardiance and metoprolol. Strict intake and output chart needs to be pursued. Continue to trend BNP and BNP tomorrow. Replace electrolytes as needed. Needs to be out of bed to chair and consider physical therapy consult for ambulation. She says she is not able to ambulate due to balance issues. Continue supportive care. Oxygen desaturation study. Will follow up with you Time Spent With Patient Time: Total time managing care of this patient today ____ minutes. Progress Note: Quality Stroke Does the patient have a stroke diagnosis?: No Procedures Date of Service Date of Service: 04/05/24
[2024-04-05 08:53] LABS: Anion Gap 14 (12-20); Blood Urea Nitrogen 23 mg/dL (9-16); Calcium 9.3 mg/dL (8.4-10.2); Carbon Dioxide 28 mmol/L (22-29); Chloride 103 mmol/L (96-108); Creatinine Clr Calc Pharmacy 41.8; Estimated Glomerular Filt Rate 57; Glucose Random 153 mg/dL (60-115); Potassium 3.4 mmol/L (3.3-5.1); Sodium 142 mmol/L (135-145)
[2024-04-05 09:00] LABS: B Type Natriuretic Peptide 2523 pg/mL (<100)
[2024-04-05] MEDS: Furosemide 20 MG/2 ML VIAL IVPUSH ×2 (09:17→17:21)
[2024-04-05 10:55] LABS: Glucose, Whole Blood 166 mg/dL (60-115)
[2024-04-05] MEDS: Insulin Lispro 100 UNIT/ML 3 ML VIAL SUBCUT (12:14)
--- NOTE | 2024-04-05 13:38 | HO.PM.IMPN ---
Subjective Subjective Date of Service: 04/05/24 Interval History: chf Review of Systems sob significantly improving denies any chest pain Physical Exam Vital Signs: Vital Signs: Last Vital Signs Temp 97.3 F 04/05/24 11:09 Pulse 57 04/05/24 11:09 Resp 18 04/05/24 11:09 BP 137/58 L 04/05/24 11:09 Pulse Ox 96 04/05/24 11:09 O2 Del Method Room Air 04/05/24 11:09 O2 Flow Rate 1 04/05/24 07:15 BMI result Body Mass Index 22.4 General: , oriented to self, place,somewhat sob Resp: air netry diminshed at bases ,has rales at bases. CVS: S1,S2,RRR GI: +BS, NT, no distention Skin: No rash, has 1+ edema Neuro: motor grossly intact Psych: appropriate affect Objective Data Active Medications Albuterol/Ipratropium (Albuterol/Iprat 2.5/0.5mg 3 Ml Ampul.Neb) 3 ml INHALE Q4H PRN PRN Reason: Wheezing Last Admin: 03/30/24 17:53 Dose: 3 ml Documented By: ROSY Amoxicillin/Clavulanate Potassium (Amoxicillin/Potassium Clav 500 Mg Tablet) 500 mg PO Q12H [facility] Last Admin: 04/05/24 01:16 Dose: 500 mg Documented By: CORY Atorvastatin Calcium (Atorvastatin Calcium 80 Mg Tablet) 80 mg PO BEDTIME [facility] Last Admin: 04/04/24 20:34 Dose: 80 mg Documented By: THOMAS Clotrimazole (Clotrimazole 1 % Cream 15 Gm Tube) 1 appl TOPICAL DAILY PRN; Protocol PRN Reason: Rash Doxycycline Monohydrate (Doxycycline Monohydrate 100 Mg Capsule) 100 mg PO Q12H [facility] Last Admin: 04/05/24 04:39 Dose: 100 mg Documented By: CORY Empagliflozin (Empagliflozin 10 Mg Tablet) 10 mg PO DAILY [facility] Last Admin: 04/05/24 07:57 Dose: 10 mg Documented By: GENEVIEVE Folic Acid (Folic Acid 1 Mg Tablet) 1 mg PO DAILY [facility] Last Admin: 04/05/24 07:57 Dose: 1 mg Documented By: GENEVIEVE Furosemide (Furosemide 20 Mg/2 Ml Vial) 20 mg IVPUSH BID@0900,1800 [facility]; Protocol Last Admin: 04/05/24 09:17 Dose: 20 mg Documented By: GENEVIEVE Gabapentin (Gabapentin 100 Mg Capsule) 100 mg PO BEDTIME [facility] Last Admin: 04/04/24 20:34 Dose: 100 mg Documented By: THOMAS Insulin Human Lispro (Insulin Lispro 100 Unit/Ml 3 Ml Vial) 0 unit SUBCUT QIDACHS [facility]; Protocol Last Admin: 04/05/24 12:14 Dose: 2 unit Documented By: GENEVIEVE Melatonin (Melatonin 3 Mg Tablet) 9 mg PO BEDTIME PRN PRN Reason: Sleep Last Admin: 04/04/24 20:34 Dose: 9 mg Documented By: THOMAS Metoprolol Tartrate (Metoprolol Tartrate 25 Mg Tablet) 75 mg PO BID [facility]; Protocol Last Admin: 04/05/24 07:56 Dose: 75 mg Documented By: GENEVIEVE Omeprazole (Omeprazole 20 Mg Capsule.) 20 mg PO DAILY@0630 [facility] Last Admin: 04/05/24 04:39 Dose: 20 mg Documented By: CORY Sacubitril/Valsartan (Sacubitril/Valsartan 1 Tab Tablet) 1 tab PO BID [facility]; Protocol Last Admin: 04/05/24 07:56 Dose: 1 tab Documented By: GENEVIEVE Sertraline HCl (Sertraline Hcl 100 Mg Tablet) 100 mg PO DAILY [facility] Last Admin: 04/05/24 07:56 Dose: 100 mg Documented By: GENEVIEVE Sodium Chloride (0.9 % Sodium Chloride Flush 3 Ml Syringe) [facility] Last Admin: 04/05/24 07:57 Dose: 3 ml Documented By: GENEVIEVE Trazodone HCl (Trazodone Hcl 50 Mg Tablet) 50 mg PO BEDTIME [facility] Last Admin: 04/04/24 20:34 Dose: 50 mg Documented By: THOMAS Vitamin D (Cholecalciferol (Vitamin D3) 25 Mcg Tablet) 25 mcg PO DAILY [facility] Last Admin: 04/05/24 07:57 Dose: 25 mcg Documented By: GENEVIEVE Labs 04/02/24 07:54 04/05/24 08:04 Labs: Laboratory Results - last 24 hr 04/04/24 04/04/24 04/05/24 16:32 20:42 06:56 Anion Gap Estim Creat Clear Calc Estimated GFR POC Glucose 125 H 134 H 135 H Random Glucose Calcium B-Natriuretic Peptide 04/05/24 04/05/24 08:04 10:51 Anion Gap 14 Estim Creat Clear Calc 41.8 Estimated GFR 57 POC Glucose 166 H Random Glucose 153 H Calcium 9.3 B-Natriuretic Peptide 2523 H Assessment and Plan (1) Sepsis: Status: Acute (2) Anemia: Status: Acute Plan 73F with AFIB on eliquis, HLD, HTN presented for SNF with hypoxia and hypotension, severe anemia. Admitted to the ICEyear-old female presented [place] the [place] [facility] on [facility] with dyspnea following a suspected aspiration event the previous day. Work-up revealed findings consistent with pneumonia, complicated by sepsis. Acute hypoxic resp failure due to PNA, possibly aspiration type ,also might have component of chf ( HfrEF) sob and hypoxia seems similar cxr -repeat today-pulm edema blood cultures -strep viridans -possible contminant repeat blood culture neg @48hrs i/o : needs to be monitered closely echo ef : 25-30%,? Changes consistent with mid LV Takotsubo. plan: daily weight i/o,lasix adjusted 20 mg ivbid,added entersto,jardiance . continue po augmentin/doxycyline(started on 03/30),taper oxygen d/w cardiology -continue to moniter. Transient Hypotension possibly related toanemia, resolved. acute lactic acidosis sec to Transient Hypotension /dehydration , no further trending. Acute blood loss anemia (hemoglobin was 5), +occult blood s/p 3 units of RBC PPI Gi consult: Heme + in the ER, but there has been no active GI bleedingdespite her chronic use of Eliquis: h/h stable d/w GI -hold eliquis for 1 week ( this was d/w on Gi dr lowry on 03/31)-please check again before discharge. HTN--BP better, on Metoprolol,hold Norvasc. Diabetes-hold metformin -sliding scale Transaminitis--trending up ? shock liver lfts improving US shos gallstone without acute imflamatory process DVT prophylaxis--device, hold eliquis d/t anemia and gib. ongoing need -pneumonia /anemia, possible chf -need iv diuretics and oxygen, monitering renal function/electrolytes,monitering for repiratory status and h/h,oxygen taper. patient guardian updated yesterdayin detail, patient is full code. Quality Stroke Does the patient have a stroke diagnosis?: No VTE Prior VTE?: No VTE Risk Level:: Medical - moderate - high VTE Device Contraindication: N/A - Device Ordered VTE Drug Contraindication: Treatment Not Tolerated
[2024-04-05 16:53] LABS: Glucose, Whole Blood 98 mg/dL (60-115)
--- NOTE | 2024-04-05 17:07 | ECG_ITS ---
Test Reason : arrythmia Blood Pressure : / mmHG Vent. Rate : 128 BPM Atrial Rate : 000 BPM P-R Int : 000 ms QRS Dur : 092 ms QT Int : 362 ms P-R-T Axes : 000 -33 112 degrees QTc Int : 528 ms Atrial fibrillation with rapid ventricular response with premature ventricular or aberrantly conducted complexes Left axis deviation Minimal voltage criteria for LVH, may be normal variant ( R in aVL ) ST & T wave abnormality, consider lateral ischemia Abnormal ECG No previous ECGs available Referred By: Yoana Day Electronically Signed By:RAMSES PATEL MD
[2024-04-05] MEDS: Potassium Chloride ER 20 MEQ TAB.ER.PRT PO (18:05)
[2024-04-05] MEDS: Gabapentin 100 MG CAPSULE PO (19:50)
[2024-04-05] MEDS: Melatonin 3 MG TABLET 9 MG PO (19:50)
[2024-04-05] MEDS: traZODone HCL 50 MG TABLET PO (19:50)
[2024-04-05] MEDS: Atorvastatin Calcium 80 MG TABLET PO (19:51)
[2024-04-05 20:02] LABS: Glucose, Whole Blood 154 mg/dL (60-115)
[2024-04-06] MEDS: Amoxicillin/Potassium Clav 500 MG TABLET PO (03:08)
[2024-04-06] MEDS: Doxycycline Monohydrate 100 MG CAPSULE PO (03:08)
[2024-04-06 04:00] VITALS: BP 140/61; PULSE 64; RESP 20; TEMP 36.1; O2SAT 97
[2024-04-06] MEDS: Omeprazole 20 MG CAPSULE.DR PO (05:26)
[2024-04-06 05:42] VITALS: BMI 22.1
[2024-04-06 06:58] LABS: Hemoglobin 9.8 g/dl (12.0-16.0); Mean Corpuscular HGB Conc 31.6 g/dl (31.0-35.0); Mean Corpuscular Hemoglobin 26.4 pg (27.0-33.0); Mean Corpuscular Volume 83.6 fL (80.0-98.0); Mean Platelet Volume 10.3 fL (9.4-12.3); Platelet Count 384 X10*3/uL (160-400); Red Blood Count 3.71 X10*6/uL (4.20-5.50); Red Cell Distribution Width 16.6 % (11.0-16.0); White Blood Count 10.6 X10*3/uL (4.8-10.8)
[2024-04-06 07:06] LABS: Glucose, Whole Blood 121 mg/dL (60-115)
[2024-04-06 07:14] LABS: Anion Gap 14 (12-20); Blood Urea Nitrogen 22 mg/dL (9-16); Carbon Dioxide 26 mmol/L (22-29); Chloride 106 mmol/L (96-108); Creatinine Clr Calc Pharmacy 49.6; Estimated Glomerular Filt Rate > 60; Glucose Random 140 mg/dL (60-115); Potassium 3.1 mmol/L (3.3-5.1); Sodium 143 mmol/L (135-145)
[2024-04-06 07:16] VITALS: BP 137/59; PULSE 70; RESP 17; TEMP 36.3; O2SAT 93
[2024-04-06 07:19] LABS: B Type Natriuretic Peptide 2669 pg/mL (<100)
[2024-04-06 08:33] LABS: Alanine Aminotransferase 40 U/L (0-31); Albumin Level 2.7 g/dL (3.5-5.0); Alkaline Phosphatase 65 U/L (39-117); Aspartate Amino Transferase 27 U/L (5-31); Bilirubin Direct 0.3 mg/dL (0.0-0.5); Bilirubin Total 0.8 mg/dL (0.0-1.0); Magnesium 1.8 mg/dL (1.6-2.6); Total Protein 5.6 g/dL (6.5-8.0)
[2024-04-06] MEDS: Sacubitril/Valsartan 24/26 1 TAB TABLET PO (09:04)
[2024-04-06] MEDS: Sertraline HCL 100 MG TABLET PO (09:04)
[2024-04-06] MEDS: Cholecalciferol (Vitamin D3) 25 MCG TABLET PO (09:04)
[2024-04-06] MEDS: Empagliflozin 10 MG TABLET PO (09:04)
[2024-04-06] MEDS: Metoprolol Tartrate 25 MG TABLET 75 MG PO (09:04)
[2024-04-06] MEDS: Potassium Chloride Packet 20 MEQ PACKET PO (09:04)
[2024-04-06] MEDS: Folic Acid 1 MG TABLET PO (09:04)
[2024-04-06] MEDS: 0.9 % Sodium Chloride Flush 3 ML SYRINGE IVFLUSH ×2 (09:05→16:58)
[2024-04-06] MEDS: Furosemide 20 MG/2 ML VIAL IVPUSH ×2 (09:06→16:57)
[2024-04-06 11:03] LABS: Glucose, Whole Blood 153 mg/dL (60-115)
--- NOTE | 2024-04-06 11:03 | PM.PNCARD ---
Subjective Subjective Date of Service: 04/06/24 Principal diagnosis: CHF, cardiomyopathy Interval history: Patient was more alert, less short of breath. Not using oxygen. Shee has been diuresing well. Hemodynamically stable. She had been doing bursts of atrial fibrillation rapid rate up to 180 beats per minute last evening. No recurrence this morning. Review of Systems Constitutional: Reports fatigue and Reports weakness Cardiovascular: Reports rapid heart rate, Denies leg edema, Denies lightheadedness, Denies Loss of Consciousness and Reports dyspnea on exertion (Improving) Respiratory: Reports dyspnea on exertion (Improving) Reports weakness Endocrine: Reports fatigue Physical Exam Vital Signs: Last Vital Signs Temp 97.4 F 04/06/24 07:16 Pulse 70 04/06/24 07:16 Resp 17 04/06/24 07:16 BP 137/59 L 04/06/24 07:16 Pulse Ox 93 04/06/24 07:16 O2 Del Method Room Air 04/06/24 07:16 O2 Flow Rate 1 04/05/24 07:15 BMI result Body Mass Index 22.1 GENERAL APPEARANCE: Frail lady. On supplemental oxygen. NECK: no carotid bruit, SKIN: no suspicious lesions, warm and dry. HEART: no murmurs, regular rate and rhythm. LUNGS: Crackles much improved ABDOMEN: soft, nontender. EXTREMITIES: no edema. PERIPHERAL PULSES: equal. NEUROLOGIC: No gross deficits, AAO X 3 Objective Labs and Meds 04/06/24 06:38 04/06/24 06:38 Lab results: Laboratory Results - last 24 hr 04/05/24 04/05/24 04/06/24 16:44 19:57 06:38 WBC 10.6 RBC 3.71 L Hgb 9.8 L Hct 31.0 L MCV 83.6 MCH 26.4 L MCHC 31.6 RDW 16.6 H Plt Count 384 MPV 10.3 Absolute Nucleated RBC 0.000 Nucleated RBC % (auto) 0.0 Sodium 143 Potassium 3.1 L Chloride 106 Carbon Dioxide 26 Anion Gap 14 BUN 22 H Creatinine 0.81 Estim Creat Clear Calc 49.6 Estimated GFR > 60 POC Glucose 98 154 H Random Glucose 140 H Calcium 9.0 Magnesium 1.8 Total Bilirubin 0.8 Direct Bilirubin 0.3 AST 27 ALT 40 H Alkaline Phosphatase 65 B-Natriuretic Peptide 2669 H Total Protein 5.6 L Albumin 2.7 L Procalcitonin Cancelled 04/06/24 04/06/24 07:00 10:58 WBC RBC Hgb Hct MCV MCH MCHC RDW Plt Count MPV Absolute Nucleated RBC Nucleated RBC % (auto) Sodium Potassium Chloride Carbon Dioxide Anion Gap BUN Creatinine Estim Creat Clear Calc Estimated GFR POC Glucose 121 H 153 H Random Glucose Calcium Magnesium Total Bilirubin Direct Bilirubin AST ALT Alkaline Phosphatase B-Natriuretic Peptide Total Protein Albumin Procalcitonin Progress Note: A&P Assessment and plan (1) Acute CHF: Status: Acute Assessment and Plan: Acute congestive heart failure gradually improving. Very difficult to evaluate her fluid status although clinically she seems to have improved with less oxygen requirement with less shortness of breath. Continue trend BNP and BNP. Continue IV diuresis for 1 more day. Continue neurohormonal modulation with Entresto, Jardiance and metoprolol, see below for reduction in dose of metoprolol. Strict intake and output chart needs to be pursued. Replace electrolytes as needed. Out of bed to chair was requested to the patient. Incentive spirometry. Can maximize Entresto. (2) Paroxysmal atrial fibrillation: Status: Acute Assessment and Plan: Patient started having episodes of paroxysmal atrial fibrillation. No clear symptoms but heart rate are significantly elevated. I think she will benefit from rhythm control given her poor cardiac status and likelihood of decompensation with rapid atrial fibrillation. Start on amiodarone loading at 200 mg b.i.d. for a month followed by 200 mg daily for now. If okay would restart Eliquis therapy from hospitalist perspective. Will follow with you Time Spent With Patient Time: Total time managing care of this patient today ____ minutes. Progress Note: Quality Stroke Does the patient have a stroke diagnosis?: No Procedures Date of Service Date of Service: 04/06/24
[2024-04-06 11:12] VITALS: BP 145/64; PULSE 67; RESP 16; TEMP 36.2; O2SAT 96
--- NOTE | 2024-04-06 11:19 | HO.PM.IMPN ---
Subjective Subjective Date of Service: 04/06/24 Interval History: feels well less short of breath no palpitations but did have short bursts of AF/RVR Review of Systems Review of Systems: Yes all other systems are reviewed and are negative Physical Exam Vital Signs: Vital Signs: Last Vital Signs Temp 97.2 F 04/06/24 11:12 Pulse 67 04/06/24 11:12 Resp 16 04/06/24 11:12 BP 145/64 H 04/06/24 11:12 Pulse Ox 96 04/06/24 11:12 O2 Del Method Room Air 04/06/24 11:12 O2 Flow Rate 1 04/05/24 07:15 BMI result Body Mass Index 22.1 Gen: in no acute distress HEENT: sclera anicteric, moist mucus membranes Neck: supple Lungs: clear to auscultation bilaterally Heart: regular rate and rhythm, no murmurs Abd: soft, non-tender, non-distended Ext: no edema Skin: warm/well-perfused Neuro: alert and oriented x3, no focal findings Psych: appropriate affect Objective Data Active Medications Albuterol/Ipratropium (Albuterol/Iprat 2.5/0.5mg 3 Ml Ampul.Neb) 3 ml INHALE Q4H PRN PRN Reason: Wheezing Last Admin: 03/30/24 17:53 Dose: 3 ml Documented By: ROSY Amiodarone HCl (Amiodarone Hcl 200 Mg Tablet) 200 mg PO BID [facility] Amoxicillin/Clavulanate Potassium (Amoxicillin/Potassium Clav 500 Mg Tablet) 500 mg PO Q12H [facility] Last Admin: 04/06/24 03:08 Dose: 500 mg Documented By: ARCENIO Apixaban (Apixaban 5 Mg Tablet) 5 mg PO BID [facility] Atorvastatin Calcium (Atorvastatin Calcium 80 Mg Tablet) 80 mg PO BEDTIME [facility] Last Admin: 04/05/24 19:51 Dose: 80 mg Documented By: THOMAS Comments: given early per pt req Clotrimazole (Clotrimazole 1 % Cream 15 Gm Tube) 1 appl TOPICAL DAILY PRN; Protocol PRN Reason: Rash Doxycycline Monohydrate (Doxycycline Monohydrate 100 Mg Capsule) 100 mg PO Q12H [facility] Last Admin: 04/06/24 03:08 Dose: 100 mg Documented By: HO.ANTOIC Empagliflozin (Empagliflozin 10 Mg Tablet) 10 mg PO DAILY [facility] Last Admin: 04/06/24 09:04 Dose: 10 mg Documented By: GENEVIEVE Folic Acid (Folic Acid 1 Mg Tablet) 1 mg PO DAILY [facility] Last Admin: 04/06/24 09:04 Dose: 1 mg Documented By: GENEVIEVE Furosemide (Furosemide 20 Mg/2 Ml Vial) 20 mg IVPUSH BID@0900,1800 [facility]; Protocol Last Admin: 04/06/24 09:06 Dose: 20 mg Documented By: GENEVIEVE Gabapentin (Gabapentin 100 Mg Capsule) 100 mg PO BEDTIME [facility] Last Admin: 04/05/24 19:50 Dose: 100 mg Documented By: THOMAS Comments: given early per pt req Insulin Human Lispro (Insulin Lispro 100 Unit/Ml 3 Ml Vial) 0 unit SUBCUT QIDACHS [facility]; Protocol Last Admin: 04/06/24 07:11 Dose: Not Given Documented By: GENEVIEVE Non-Admin Reason: No Insulin Coverage Melatonin (Melatonin 3 Mg Tablet) 9 mg PO BEDTIME PRN PRN Reason: Sleep Last Admin: 04/05/24 19:50 Dose: 9 mg Documented By: THOMAS Metoprolol Tartrate (Metoprolol Tartrate 50 Mg Tablet) 50 mg PO BID [facility]; Protocol Omeprazole (Omeprazole 20 Mg Capsule.Dr) 20 mg PO DAILY@0630 [facility] Last Admin: 04/06/24 05:26 Dose: 20 mg Documented By: ARCENIO Sacubitril/Valsartan (Sacubitril/Valsartan 49/51 1 Tab Tablet) 1 tab PO BID [facility]; Protocol Sertraline HCl (Sertraline Hcl 100 Mg Tablet) 100 mg PO DAILY [facility] Last Admin: 04/06/24 09:04 Dose: 100 mg Documented By: GENEVIEVE Sodium Chloride (0.9 % Sodium Chloride Flush 3 Ml Syringe) [facility] Last Admin: 04/06/24 09:05 Dose: 3 ml Documented By: GENEVIEVE Trazodone HCl (Trazodone Hcl 50 Mg Tablet) 50 mg PO BEDTIME [facility] Last Admin: 04/05/24 19:50 Dose: 50 mg Documented By: THOMAS Comments: given early per pt req Vitamin D (Cholecalciferol (Vitamin D3) 25 Mcg Tablet) 25 mcg PO DAILY [facility] Last Admin: 04/06/24 09:04 Dose: 25 mcg Documented By: GENEVIEVE Labs 04/06/24 06:38 04/06/24 06:38 Labs: Laboratory Results - last 24 hr 04/05/24 04/05/24 04/06/24 16:44 19:57 06:38 MCV 83.6 MCH 26.4 L MCHC 31.6 RDW 16.6 H Plt Count 384 MPV 10.3 Absolute Nucleated RBC 0.000 Nucleated RBC % (auto) 0.0 Anion Gap 14 Estim Creat Clear Calc 49.6 Estimated GFR > 60 POC Glucose 98 154 H Random Glucose 140 H Calcium 9.0 Magnesium 1.8 Total Bilirubin 0.8 Direct Bilirubin 0.3 AST 27 ALT 40 H Alkaline Phosphatase 65 B-Natriuretic Peptide 2669 H Total Protein 5.6 L Albumin 2.7 L Procalcitonin Cancelled 04/06/24 04/06/24 07:00 10:58 MCV MCH MCHC RDW Plt Count MPV Absolute Nucleated RBC Nucleated RBC % (auto) Anion Gap Estim Creat Clear Calc Estimated GFR POC Glucose 121 H 153 H Random Glucose Calcium Magnesium Total Bilirubin Direct Bilirubin AST ALT Alkaline Phosphatase B-Natriuretic Peptide Total Protein Albumin Procalcitonin Assessment and Plan (1) Sepsis: Status: Acute (2) Anemia: Status: Acute Plan d12 for 73yo F LTC resident of [facility] with pAF on apixaban, HLD, HTN presented with hypoxia and severe anemia and initially admitted to ICU for transient hypotension, sepsis from pneumonia ADHF due to acute HFrEF - continue IV diuresis with furosemide; monitor BNP, I+O, lytes - TTE 04/01: - Normal left ventricular cavity size. There is severely increased left ventricular wall thickness. The left ventricular systolic function is moderate to severely decreased. The visually estimated ejection fraction is between 25-30%. Changes consistent with mid LV Takotsubo. - Elevated filling pressures. - The mid anterior, mid inferior, mid anterolateral, mid inferoseptal, mid anteroseptal, and mid inferolateral segments are akinetic. - Normal right ventricular cavity size. There is mildly decreased right ventricular systolic function. - continue metoprolol tartrate [reduce dose from 75 to 50mg bid] - continue empagliflozin - increase Entresto - overnight oximetry test pAF - start amiodarone 200mg bid x1mo, then 200mg daily pneumonia - complete doxycycline and amoxicillin-clavulanate today [was started 03/30]; was on vanco + cefepime 03/26-03/29 - initially thought to have GNRs in blood but ultimately grew Strep viridans, a contaminant; repeat BCx negative chronic GI blood loss anemia - H+H stable after 3u pRBCs transfused; GI consulted; no scope recommended; apixaban has been held since admission and will resume with monitoring today AHRF - weaned off O2 transaminasemia - largely resolved; likely was due to shock liver from hypotension HTN - amlodipine + spironolactone held; continue metoprolol tartrate DM2 - tyesha-dose lispro mood disorder - continue trazodone, sertraline VTE ppx - resuming anticoagulation with apixaban dispo - eventual return to LTC In my clinical judgment, the patient requires continued inpatient hospitalization for the following reasons: IV diuresis, cardiac monitoring Total time managing care of this patient today: 50 minutes. Quality Stroke Does the patient have a stroke diagnosis?: No VTE Prior VTE?: No VTE Risk Level:: Medical - moderate - high VTE Device Contraindication: N/A - Device Ordered VTE Drug Contraindication: Treatment Not Tolerated
[2024-04-06] MEDS: Insulin Lispro 100 UNIT/ML 3 ML VIAL SUBCUT (11:54)
[2024-04-06] MEDS: Amiodarone HCL 200 MG TABLET PO ×2 (11:54→21:38)
[2024-04-06] MEDS: Apixaban 5 MG TABLET PO ×2 (11:54→21:40)
[2024-04-06 15:18] VITALS: BP 146/60; PULSE 65; RESP 18; TEMP 36.1; O2SAT 100
--- NOTE | 2024-04-06 16:09 | MHC.CM.PN ---
EMR reviewed and per MD rounds, pt is not medically cleared for discharge today, anticipating pt will discharge tomorrow returning to [facility].
[2024-04-06 16:38] LABS: Glucose, Whole Blood 102 mg/dL (60-115)
[2024-04-06 19:24] VITALS: BP 150/58; PULSE 61; RESP 17; TEMP 36.1; O2SAT 93
[2024-04-06 20:31] LABS: Glucose, Whole Blood 122 mg/dL (60-115)
[2024-04-06] MEDS: Metoprolol Tartrate 50 MG TABLET PO (21:38)
[2024-04-06] MEDS: Atorvastatin Calcium 80 MG TABLET PO (21:38)
[2024-04-06] MEDS: Sacubitril/Valsartan 49/51 1 TAB TABLET PO (21:40)
[2024-04-06] MEDS: traZODone HCL 50 MG TABLET PO (21:40)
[2024-04-06] MEDS: Gabapentin 100 MG CAPSULE PO (21:40)
--- NOTE | 2024-04-06 23:21 | PC.RT ---
NOC Oximetry started at 2300; pt on RA
[2024-04-06 23:57] VITALS: BP 134/68; PULSE 61; RESP 16; TEMP 36.5; O2SAT 94
[2024-04-07] VITALS (9 sets, daily range): BP systolic 122–147; BP diastolic 51–71; PULSE 67–82; RESP 16–18; TEMP 36.2–36.3; O2SAT 95–98; BMI 24.3
[2024-04-07] MEDS: 0.9 % Sodium Chloride Flush 3 ML SYRINGE IVFLUSH ×4 (00:45→20:55)
[2024-04-07] MEDS: Omeprazole 20 MG CAPSULE.DR PO (06:20)
[2024-04-07 07:10] LABS: Hematocrit 35.5 % (37.0-47.0); Hemoglobin 10.9 g/dl (12.0-16.0)
[2024-04-07 07:26] LABS: Glucose, Whole Blood 124 mg/dL (60-115)
[2024-04-07 07:32] LABS: B Type Natriuretic Peptide 2735 pg/mL (<100)
[2024-04-07 08:51] LABS: Anion Gap 15 (12-20); Blood Urea Nitrogen 21 mg/dL (9-16); Calcium 9.7 mg/dL (8.4-10.2); Carbon Dioxide 27 mmol/L (22-29); Chloride 103 mmol/L (96-108); Creatinine Clr Calc Pharmacy 48.8; Estimated Glomerular Filt Rate > 60; Glucose Random 209 mg/dL (60-115); Magnesium 1.9 mg/dL (1.6-2.6); Potassium 3.1 mmol/L (3.3-5.1); Sodium 142 mmol/L (135-145)
--- NOTE | 2024-04-07 09:23 | P.PNCA_ITS ---
Subjective Subjective Date of Service: 04/07/24 Principal diagnosis: CHF, cardiomyopathy Interval history: Clinically doing well with much improved mental status. Not short of breath. No more episodes of atrial fibrillation overnight. Hemodynamically stable. BNP still elevated in the 2600 range Review of Systems Constitutional: Reports weakness Eyes: Reports no additional eye complaints Cardiovascular: Reports no additional cardiovascular complaints Respiratory: Reports no additional respiratory complaints Genitourinary: Reports no additional female genitourinary complaints Musculoskeletal: Reports no additional musculoskeletal complaints Reports weakness Psychiatric: Reports no additional psychiatric complaints Physical Exam Vital Signs: Last Vital Signs Temp 97.3 F 04/07/24 07:19 Pulse 79 04/07/24 07:19 Resp 18 04/07/24 07:19 BP 140/61 H 04/07/24 07:19 Pulse Ox 95 04/07/24 07:19 O2 Del Method Room Air 04/07/24 07:19 O2 Flow Rate 1 04/05/24 07:15 BMI result Body Mass Index 24.3 GENERAL APPEARANCE: Frail lady. On supplemental oxygen. NECK: no carotid bruit, SKIN: no suspicious lesions, warm and dry. HEART: no murmurs, regular rate and rhythm. LUNGS: Clear to auscultation ABDOMEN: soft, nontender. EXTREMITIES: no edema. PERIPHERAL PULSES: equal. NEUROLOGIC: No gross deficits, AAO X 3 Objective Labs and Meds 04/07/24 06:24 04/07/24 08:30 Lab results: Laboratory Results - last 24 hr 04/06/24 04/06/24 04/06/24 10:58 16:25 20:16 Hgb Hct Sodium Potassium Chloride Carbon Dioxide Anion Gap BUN Creatinine Estim Creat Clear Calc Estimated GFR POC Glucose 153 H 102 122 H Random Glucose Calcium Magnesium B-Natriuretic Peptide 04/07/24 04/07/24 04/07/24 06:24 06:50 08:30 Hgb 10.9 L Hct 35.5 L Sodium 142 Potassium 3.1 L Chloride 103 Carbon Dioxide 27 Anion Gap 15 BUN 21 H Creatinine 0.89 Estim Creat Clear Calc 48.8 Estimated GFR > 60 POC Glucose 124 H Random Glucose 209 H Calcium 9.7 D Magnesium 1.9 B-Natriuretic Peptide 2735 H Progress Note: A&P Assessment and plan (1) Acute CHF: Status: Acute Assessment and Plan: Acute congestive heart failure in this elderly woman clinically appears euvolemic and well compensated with much improved symptoms compared to 2 days ago. BNP is not improved most likely I think at this point time given her fluid status improving so much she is probably related to Entresto therapy. Continue Entresto, metoprolol, Jardiance. Can switch to oral Lasix. Watch for 1 more day and transition to care home facility tomorrow. Encouraged patient to get out of bed to chair but she declined. Incentive spirometry should continue. (2) Paroxysmal atrial fibrillation: Status: Acute Assessment and Plan: Paroxysmal atrial fibrillation remained suppressed on amiodarone loading. Continue the same. Resume Eliquis as well as continue metoprolol at a lower dose. Will benefit from rhythm control approach. Total loading of amiodarone with 200 mg b.i.d. for 1 month followed by 200 mg daily. Will sign of the case. Time Spent With Patient Time: Total time managing care of this patient today ____ minutes. Progress Note: Quality Stroke Does the patient have a stroke diagnosis?: No Procedures Date of Service Date of Service: 04/07/24
[2024-04-07] MEDS: Metoprolol Tartrate 50 MG TABLET PO ×2 (09:30→20:55)
[2024-04-07] MEDS: Cholecalciferol (Vitamin D3) 25 MCG TABLET PO (09:30)
[2024-04-07] MEDS: Empagliflozin 10 MG TABLET PO (09:30)
[2024-04-07] MEDS: Sacubitril/Valsartan 49/51 1 TAB TABLET PO ×2 (09:30→20:54)
[2024-04-07] MEDS: Sertraline HCL 100 MG TABLET PO (09:30)
[2024-04-07] MEDS: Amiodarone HCL 200 MG TABLET PO ×2 (09:30→20:54)
[2024-04-07] MEDS: Folic Acid 1 MG TABLET PO (09:30)
[2024-04-07] MEDS: Apixaban 5 MG TABLET PO ×2 (09:30→20:54)
[2024-04-07] MEDS: Furosemide 20 MG/2 ML VIAL IVPUSH (09:31)
[2024-04-07 10:54] LABS: Glucose, Whole Blood 183 mg/dL (60-115)
[2024-04-07] MEDS: Insulin Lispro 100 UNIT/ML 3 ML VIAL SUBCUT (12:22)
--- NOTE | 2024-04-07 12:40 | HO.PM.IMPN ---
Subjective Subjective Date of Service: 04/07/24 Interval History: no dyspnea no further episodes of AF Review of Systems Review of Systems: Yes all other systems are reviewed and are negative Physical Exam Vital Signs: Vital Signs: Last Vital Signs Temp 97.2 F 04/07/24 11:05 Pulse 67 04/07/24 11:05 Resp 18 04/07/24 11:05 BP 131/58 L 04/07/24 11:05 Pulse Ox 97 04/07/24 11:05 O2 Del Method Room Air 04/07/24 11:05 O2 Flow Rate 1 04/05/24 07:15 BMI result Body Mass Index 24.3 Gen: in no acute distress HEENT: sclera anicteric, moist mucus membranes Neck: supple Lungs: clear to auscultation bilaterally Heart: regular rate and rhythm, no murmurs Abd: soft, non-tender, non-distended Ext: no edema Skin: warm/well-perfused Neuro: alert and oriented x3, no focal findings Psych: appropriate affect Objective Data Active Medications Albuterol/Ipratropium (Albuterol/Iprat 2.5/0.5mg 3 Ml Ampul.Neb) 3 ml INHALE Q4H PRN PRN Reason: Wheezing Last Admin: 03/30/24 17:53 Dose: 3 ml Documented By: ROSY Amiodarone HCl (Amiodarone Hcl 200 Mg Tablet) 200 mg PO BID [facility] Last Admin: 04/07/24 09:30 Dose: 200 mg Documented By: JODIE Apixaban (Apixaban 5 Mg Tablet) 5 mg PO BID [facility] Last Admin: 04/07/24 09:30 Dose: 5 mg Documented By: JODIE Atorvastatin Calcium (Atorvastatin Calcium 80 Mg Tablet) 80 mg PO BEDTIME [facility] Last Admin: 04/06/24 21:38 Dose: 80 mg Documented By: JAYSCOSWALD Clotrimazole (Clotrimazole 1 % Cream 15 Gm Tube) 1 appl TOPICAL DAILY PRN; Protocol PRN Reason: Rash Empagliflozin (Empagliflozin 10 Mg Tablet) 10 mg PO DAILY [facility] Last Admin: 04/07/24 09:30 Dose: 10 mg Documented By: JODIE Folic Acid (Folic Acid 1 Mg Tablet) 1 mg PO DAILY [facility] Last Admin: 04/07/24 09:30 Dose: 1 mg Documented By: JODIE Furosemide (Furosemide 20 Mg Tablet) 20 mg PO BID@0900,1800 [facility]; Protocol Gabapentin (Gabapentin 100 Mg Capsule) 100 mg PO BEDTIME [facility] Last Admin: 04/06/24 21:40 Dose: 100 mg Documented By: GENEVIEVE Insulin Human Lispro (Insulin Lispro 100 Unit/Ml 3 Ml Vial) 0 unit SUBCUT QIDACHS [facility]; Protocol Last Admin: 04/07/24 12:22 Dose: 2 unit Documented By: JODIE Melatonin (Melatonin 3 Mg Tablet) 9 mg PO BEDTIME PRN PRN Reason: Sleep Last Admin: 04/05/24 19:50 Dose: 9 mg Documented By: THOMAS Metoprolol Tartrate (Metoprolol Tartrate 50 Mg Tablet) 50 mg PO BID [facility]; Protocol Last Admin: 04/07/24 09:30 Dose: 50 mg Documented By: JODIE Omeprazole (Omeprazole 20 Mg Capsule.Dr) 20 mg PO DAILY@0630 [facility] Last Admin: 04/07/24 06:20 Dose: 20 mg Documented By: ANTOIC Sacubitril/Valsartan (Sacubitril/Valsartan 49/51 1 Tab Tablet) 1 tab PO BID [facility]; Protocol Last Admin: 04/07/24 09:30 Dose: 1 tab Documented By: JODIE Sertraline HCl (Sertraline Hcl 100 Mg Tablet) 100 mg PO DAILY [facility] Last Admin: 04/07/24 09:30 Dose: 100 mg Documented By: JODIE Sodium Chloride (0.9 % Sodium Chloride Flush 3 Ml Syringe) 3 ml IVFLUSH [facility] Last Admin: 04/07/24 09:34 Dose: 3 ml Documented By: JODIE Trazodone HCl (Trazodone Hcl 50 Mg Tablet) 50 mg PO BEDTIME [facility] Last Admin: 04/06/24 21:40 Dose: 50 mg Documented By: GENEVIEVE Vitamin D (Cholecalciferol (Vitamin D3) 25 Mcg Tablet) 25 mcg PO DAILY [facility] Last Admin: 04/07/24 09:30 Dose: 25 mcg Documented By: JODIE Labs 04/07/24 06:24 04/07/24 08:30 Labs: Laboratory Results - last 24 hr 04/06/24 04/06/24 04/07/24 16:25 20:16 06:24 Anion Gap Estim Creat Clear Calc Estimated GFR POC Glucose 102 122 H Random Glucose Calcium Magnesium B-Natriuretic Peptide 2735 H 04/07/24 04/07/24 04/07/24 06:50 08:30 10:51 Anion Gap 15 Estim Creat Clear Calc 48.8 Estimated GFR > 60 POC Glucose 124 H 183 H Random Glucose 209 H Calcium 9.7 D Magnesium 1.9 B-Natriuretic Peptide Assessment and Plan (1) Sepsis: Status: Acute (2) Anemia: Status: Acute Plan d13 for 73yo F LTC resident of [facility] with pAF on apixaban, HLD, HTN presented with hypoxia and severe anemia and initially admitted to ICU for transient hypotension, sepsis from pneumonia ADHF due to acute HFrEF - seems euvolemic now; change IV to PO furosemide - TTE 04/01: - Normal left ventricular cavity size. There is severely increased left ventricular wall thickness. The left ventricular systolic function is moderate to severely decreased. The visually estimated ejection fraction is between 25-30%. Changes consistent with mid LV Takotsubo. - Elevated filling pressures. - The mid anterior, mid inferior, mid anterolateral, mid inferoseptal, mid anteroseptal, and mid inferolateral segments are akinetic. - Normal right ventricular cavity size. There is mildly decreased right ventricular systolic function. - continue metoprolol tartrate [reduced dose from 75 to 50mg bid] - continue empagliflozin - continue Entresto - overnight oximetry test pAF - 04/06 started amiodarone 200mg bid x1mo, then 200mg daily pneumonia - completed doxycycline and amoxicillin-clavulanate 04/06 [was started 03/30]; was on vanco + cefepime 03/26-03/29 - initially thought to have GNRs in blood but ultimately grew Strep viridans, a contaminant; repeat BCx negative chronic GI blood loss anemia - H+H stable after 3u pRBCs transfused; GI consulted; no scope recommended; apixaban was held on admission and resumed yesterday; H+H stable AHRF - weaned off O2 transaminasemia - largely resolved; likely was due to shock liver from hypotension HTN - amlodipine + spironolactone held; continue metoprolol tartrate DM2 - tyesha-dose lispro mood disorder - continue trazodone, sertraline VTE ppx - apixaban dispo - eventual return to LTC In my clinical judgment, the patient requires continued inpatient hospitalization for the following reasons: CHF monitoring Total time managing care of this patient today: 35 minutes. Quality Stroke Does the patient have a stroke diagnosis?: No VTE Prior VTE?: No VTE Risk Level:: Medical - moderate - high VTE Device Contraindication: N/A - Device Ordered VTE Drug Contraindication: Treatment Not Tolerated
[2024-04-07] MEDS: Potassium Chloride Packet 20 MEQ PACKET PO (13:51)
[2024-04-07 16:12] LABS: Glucose, Whole Blood 96 mg/dL (60-115)
[2024-04-07] MEDS: Furosemide 20 MG TABLET PO (17:16)
[2024-04-07 20:44] LABS: Glucose, Whole Blood 124 mg/dL (60-115)
[2024-04-07] MEDS: traZODone HCL 50 MG TABLET PO (20:54)
[2024-04-07] MEDS: Gabapentin 100 MG CAPSULE PO (20:54)
[2024-04-07] MEDS: Melatonin 3 MG TABLET 9 MG PO (20:54)
[2024-04-07] MEDS: Atorvastatin Calcium 80 MG TABLET PO (20:55)
[2024-04-08 04:00] VITALS: BP 121/61; PULSE 75; RESP 16; TEMP 36.9; O2SAT 96
[2024-04-08 06:00] VITALS: BMI 25.0
[2024-04-08] MEDS: Omeprazole 20 MG CAPSULE.DR PO (06:33)
[2024-04-08 07:14] VITALS: BP 125/52; PULSE 64; RESP 16; TEMP 37.1; O2SAT 92
[2024-04-08 07:36] LABS: Glucose, Whole Blood 128 mg/dL (60-115)
[2024-04-08 08:05] LABS: Anion Gap 13 (12-20); Blood Urea Nitrogen 22 mg/dL (9-16); Calcium 8.5 mg/dL (8.4-10.2); Carbon Dioxide 27 mmol/L (22-29); Chloride 104 mmol/L (96-108); Creatinine Clr Calc Pharmacy 47.9; Estimated Glomerular Filt Rate > 60; Glucose Random 128 mg/dL (60-115); Sodium 141 mmol/L (135-145)
[2024-04-08] MEDS: Potassium Chloride Packet 20 MEQ PACKET PO (09:46)
[2024-04-08] MEDS: Apixaban 5 MG TABLET PO (09:46)
[2024-04-08 09:47] VITALS: BP 125/52; PULSE 76
[2024-04-08] MEDS: Amiodarone HCL 200 MG TABLET PO (09:47)
[2024-04-08] MEDS: Empagliflozin 10 MG TABLET PO (09:47)
[2024-04-08] MEDS: Sacubitril/Valsartan 49/51 1 TAB TABLET PO (09:47)
[2024-04-08] MEDS: Metoprolol Tartrate 50 MG TABLET PO (09:47)
[2024-04-08] MEDS: Furosemide 20 MG TABLET PO (09:47)
[2024-04-08] MEDS: 0.9 % Sodium Chloride Flush 3 ML SYRINGE IVFLUSH (09:48)
[2024-04-08] MEDS: Sertraline HCL 100 MG TABLET PO (09:48)
[2024-04-08] MEDS: Folic Acid 1 MG TABLET PO (09:48)
[2024-04-08] MEDS: Cholecalciferol (Vitamin D3) 25 MCG TABLET PO (09:48)
--- NOTE | 2024-04-08 10:39 | MHC.CM.PN ---
Per ROUNDS discussion, Patient is medically cleared for dc to return to LTC today. Patient will return to LTC @ [facility] today at 12:30 PM, via [facility]. CM left a detailed message for Norris/Jair @ [phone], addressing the IMM and informing him of the dc plan.
[2024-04-08 10:53] VITALS: BP 133/60; PULSE 69; RESP 18; TEMP 36.3; O2SAT 98
[2024-04-08 11:01] LABS: Glucose, Whole Blood 153 mg/dL (60-115)
[2024-04-08] MEDS: Insulin Lispro 100 UNIT/ML 3 ML VIAL SUBCUT (11:25)
--- NOTE | 2024-04-08 12:01 | P.DS_ITS ---
DS: Providers Provider Date of Service: 04/08/24 Date of admission: 03/26/24 13:40 Date of discharge: 04/08/24 Primary care physician: Damien Kay MD Consults: 03/28/24 07:37 Consult to Gastroenterology Routine Consulting Provider: Luis Fernando Christopher Reason for consultation: anemia, occult positive 03/29/24 09:44 Consult to Infectious Diseases Routine Consulting Provider: [facility] Reason for consultation: pneumonia and bacteremia Has provider been notified: No 04/01/24 13:32 Consult to Cardiology Routine Consulting Provider: [facility] Reason for consultation: chf DS: Diagnosis Discharge Diagnosis (1) Sepsis: Status: Acute (2) Anemia: Status: Acute (3) Acute CHF: Status: Acute (4) Acute HFrEF (heart failure with reduced ejection fraction): Status: Acute (5) Cardiomyopathy: Status: Acute (6) Paroxysmal atrial fibrillation: Status: Acute (7) Hypokalemia: Status: Acute (8) Pneumonia: Status: Acute (9) Chronic blood loss anemia: Status: Acute (10) Transaminasemia: Status: Acute (11) Acute respiratory failure with hypoxia: Status: Acute DS: Summary Hospital Course Hospital Course: From the history and 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 Essie Clarke 03/26/24: Patient is a 73 Y F presenting to emergency department from retirement on 03/26 w/ dyspnea, c/f aspiration the previous day; of note, per EMS, patient found to be hypoxic 80s; in emergency department, patient found to be also hypotensive w/ improvement w/ IVF; work-up demonstrated chest x-ray suggestive of pneumonia, lactic acidosis, transaminitis, and troponinemia, concerning for sepsis, as well as anemia; patient admitted to ICU for further management 73yo F LTC resident of [facility] with pAF on apixaban, HLD, and HTN who presented with hypoxia and severe anemia and was initially admitted to ICU for transient hypotension and sepsis from pneumonia. Hospital course by problem: acute decompensated heart failure due to acute HFrEF - She was diuresed with IV furosemide then placed on PO furosemide maintenance with potassium repletion. BMP should be checked in 1 week. - TTE 04/01: - Normal left ventricular cavity size. There is severely increased left ventricular wall thickness. The left ventricular systolic function is moderate to severely decreased. The visually estimated ejection fraction is between 25-30%. Changes consistent with mid LV Takotsubo. - Elevated filling pressures. - The mid anterior, mid inferior, mid anterolateral, mid inferoseptal, mid anteroseptal, and mid inferolateral segments are akinetic. - Normal right ventricular cavity size. There is mildly decreased right ventricular systolic function. - Cardiology was consulted. Metoprolol tartrate was continued with dose reduction from 75 to 50 mg bid. Spironolactone and amlodipine were discontinued. She was started on Entresto and empagliflozin. She will need outpatient Cardiology follow-up. acute hypoxic respiratory failure - She was weaned down on oxygen but does continue to require 2L of oxygen overnight. paroxysmal AF - She had bursts of AF/RVR and was started on amiodarone 200mg bid to continue for another 28 days, then 200mg daily pneumonia - She was treated with vancomycin and cefepine 03/26-03/29/24, then completed a course of doxycycline and amoxicillin-clavulanate 03/30-04/06/24. Initially thought to have GNRs in blood but ultimately grew Strep viridans, a contaminant; repeat BCx negative. chronic GI blood loss anemia - H+H stable after 3u pRBCs transfused; GI consulted; no scope recommended; apixaban was held on admission and resumed with stable H+H. CBC should be checked in 1 week. transaminasemia - Largely resolved; likely was due to shock liver from hypotension She was discharged back to [facility] for LTC. Time Attestation Discharge Coordination Time (in mins): 50 Quality: Safe Use of Opioids Does Pt have an Active Cancer Diagnosis on the Problem List?: No Quality: Stroke Does the patient have a stroke diagnosis?: No Physical Exam Vital Signs: Vital Signs: Last Vital Signs Temp 97.4 F 04/08/24 10:53 Pulse 69 04/08/24 10:53 Resp 18 04/08/24 10:53 BP 133/60 04/08/24 10:53 Pulse Ox 98 04/08/24 10:53 O2 Del Method Room Air 04/08/24 10:53 O2 Flow Rate 1 04/05/24 07:15 BMI result Body Mass Index 25.0 Gen: in no acute distress HEENT: sclera anicteric, moist mucus membranes Neck: supple Lungs: clear to auscultation bilaterally Heart: regular rate and rhythm, no murmurs Abd: soft, non-tender, non-distended Ext: no edema Skin: warm/well-perfused Neuro: alert and oriented x3, no focal findings Psych: appropriate affect DS: Data Data Completed and Pending Completed studies during hospitalization [Text1]: Laboratory Results WBC 10.6 X10*3/uL (4.8-10.8) 04/06/24 06:38 RBC 3.71 X10*6/uL (4.20-5.50) L 04/06/24 06:38 Hgb 10.9 g/dl (12.0-16.0) L 04/07/24 06:24 Hct 35.5 % (37.0-47.0) L 04/07/24 06:24 MCV 83.6 fL (80.0-98.0) 04/06/24 06:38 MCH 26.4 pg (27.0-33.0) L 04/06/24 06:38 MCHC 31.6 g/dl (31.0-35.0) 04/06/24 06:38 RDW 16.6 % (11.0-16.0) H 04/06/24 06:38 Plt Count 384 X10*3/uL (160-400) 04/06/24 06:38 MPV 10.3 fL (9.4-12.3) 04/06/24 06:38 Immature Gran % (Auto) 0.7 % (0.0-0.4) H 04/02/24 07:54 Neut % (Auto) 84.1 % (45-73) H 04/02/24 07:54 Lymph % (Auto) 7.2 % (20-40) L 04/02/24 07:54 [place] % (Auto) 7.5 % (2-11) 04/02/24 07:54 Eos % (Auto) 0.4 % (0-4) 04/02/24 07:54 Baso % (Auto) 0.1 % (0-2) 04/02/24 07:54 Lymph # (Auto) 1.0 X10*3/uL (1.2-4.9) L 04/02/24 07:54 [place] # (Auto) 1.0 X10*3/uL (0.1-1.2) 04/02/24 07:54 Eos # (Auto) 0.1 X10*3/uL (0.0-0.4) 04/02/24 07:54 Baso # (Auto) 0.0 X10*3/uL (0.0-0.2) 04/02/24 07:54 Abs Immat Gran (auto) 0.09 X10*3/uL (0.00-0.03) H 04/02/24 07:54 Absolute Neuts (auto) 11.3 x10*3/uL (2.0-8.3) H 04/02/24 07:54 Absolute Nucleated RBC 0.000 X10*3/uL (0.0-0.012) 04/06/24 06:38 Nucleated RBC % (auto) 0.0 /100WBC (0.0-0.2) 04/06/24 06:38 Smear Path Review SEE NOTE 03/26/24 11:16 PT 12.3 SEC (10.9-12.4) D 03/29/24 06:19 INR 1.1 (0.9-1.1) 03/29/24 06:19 Sodium 141 mmol/L (135-145) 04/08/24 06:52 Potassium 3.0 mmol/L (3.3-5.1) L 04/08/24 06:52 Chloride 104 mmol/L (96-108) 04/08/24 06:52 Carbon Dioxide 27 mmol/L (22-29) 04/08/24 06:52 Anion Gap 13 (12-20) 04/08/24 06:52 BUN 22 mg/dL (9-16) H 04/08/24 06:52 Creatinine 0.92 mg/dL (0.5-1.4) 04/08/24 06:52 Estim Creat Clear Calc 47.9 04/08/24 06:52 Estimated GFR > 60 04/08/24 06:52 POC Glucose 153 mg/dL (60-115) H 04/08/24 10:57 Random Glucose 128 mg/dL (60-115) H 04/08/24 06:52 Lactic Acid 2.1 mmol/L (0.5-2.0) H* 04/01/24 20:58 Lactic Acid F/U @ 2Hr 2.0 mmol/L (0.5-2.0) 04/01/24 23:49 Lactic Acid F/U @ 4Hr 4.6 mmol/L (0.5-2.0) H* 03/26/24 16:30 Calcium 8.5 mg/dL (8.4-10.2) D 04/08/24 06:52 Phosphorus 3.2 mg/dL (2.7-4.5) 04/02/24 07:54 Magnesium 1.9 mg/dL (1.6-2.6) 04/07/24 08:30 Total Bilirubin 0.8 mg/dL (0.0-1.0) 04/06/24 06:38 Direct Bilirubin 0.3 mg/dL (0.0-0.5) 04/06/24 06:38 AST 27 U/L (5-31) 04/06/24 06:38 ALT 40 U/L (0-31) H 04/06/24 06:38 Alkaline Phosphatase 65 U/L (39-117) 04/06/24 06:38 Troponin I High Sens 47.1 ng/L (<3.5-17.0) H 04/01/24 20:58 B-Natriuretic Peptide 2735 pg/mL (<100) H 04/07/24 06:24 Total Protein 5.6 g/dL (6.5-8.0) L 04/06/24 06:38 Albumin 2.7 g/dL (3.5-5.0) L 04/06/24 06:38 Lipase 25 U/L (8-78) 03/26/24 10:38 Procalcitonin Cancelled 04/06/24 06:38 TSH 0.54 uIU/mL (0.32-4.0) 03/26/24 16:30 Urine Color Yellow 03/27/24 00:46 Urine Appearance Clear 03/27/24 00:46 Urine pH 5.5 (5.0-9.0) 03/27/24 00:46 Ur Specific [place] 1.010 (1.005-1.025) 03/27/24 00:46 Urine Protein Negative mg/dL (Neg-Trace) 03/27/24 00:46 Urine Glucose (UA) Negative mg/dL (Negative) 03/27/24 00:46 Urine Ketones Negative mg/dL (Negative) 03/27/24 00:46 Urine Blood Negative (Negative) 03/27/24 00:46 Urine Nitrite Negative (Negative) 03/27/24 00:46 Ur Leukocyte Esterase Negative (Negative) 03/27/24 00:46 Stool Occult Blood POSITIVE (NEGATIVE) 03/26/24 11:53 Random Vancomycin 17.8 mcg/mL (15-20) 03/30/24 10:02 Hepatitis A IgM Ab Nonreactive (Nonreactive) 03/26/24 22:36 Hep Bs Antigen Negative (Negative) 03/26/24 22:36 Hep Bs Antibody NONREACTIVE (Nonreactive) 03/26/24 22:36 Hep B Core Total Ab Nonreactive (Nonreactive) 03/26/24 22:36 Hepatitis C Ab (EIA) Nonreactive (Nonreactive) 03/26/24 22:36 Influenza Type A (PCR) NEGATIVE (Negative) 03/26/24 10:38 Influenza Type B (PCR) NEGATIVE (Negative) 03/26/24 10:38 RSV RNA Qual (PCR) NEGATIVE (Negative) 03/26/24 10:38 SARS-CoV-2 RNA (RT-PCR) NEGATIVE (Negative) 03/26/24 10:38 Blood Type A Positive 03/26/24 11:50 Antibody Screen NEGATIVE 03/26/24 11:50 Crossmatch See Detail 03/26/24 11:50 Impressions Abdomen Ultrasound 03/26/24 18:30 IMPRESSION: 1. Gallstones without acute inflammatory changes. No biliary ductal dilatation. Changes of hepatic steatosis. 2. Pancreas not visualized due to overlying bowel gas. 3. Atrophic right kidney. Electronically signed by: Rj Hopper MD 03/26/2024 07:34 PM EST RP Chest X-Ray 04/04/24 11:04 IMPRESSION: Pulmonary edema and bilateral small to pleural effusions. Superimposed multifocal pneumonia cannot be excluded. Electronically signed by: Wes Ga MD 04/04/2024 11:46 AM EST RP Discharge Plan Discharge Patient Disposition: Xfer LT Discharge Diagnosis: heart failure atrial fibrillation pneumonia chronic GI blood loss anemia hypoxia Referrals: [facility] [Outside] - 1 Week Damien Kay MD [Primary Care Provider] - 1 Week Discharge Medications: New amiodarone 200 mg Tablet See Rx Instructions .ROUTE .COMPLEX Qty: 56 0RF Rx Instructions: 200 mg twice daily for 28 days, then 200 mg once daily metoprolol tartrate 50 mg Tablet 50 mg PO BID Qty: 60 0RF Protocol: Hold for SBP/HR < HOLD for SBP < : 90 HOLD for HR < : 60 Entresto 49-51 mg Tablet 1 tab PO BID Qty: 60 0RF Protocol: Hold for SBP< HOLD for SBP < : 90 potassium chloride 20 mEq Packet 20 meq PO BID Qty: 60 0RF furosemide 20 mg Tablet 20 mg PO BID@0900,1800 Qty: 60 0RF Protocol: Hold for SBP< HOLD for SBP < : 90 Jardiance 10 mg Tablet 10 mg PO DAILY Qty: 30 0RF Continued metformin 500 mg tablet 500 mg PO BID atorvastatin 80 mg tablet 80 mg PO BEDTIME sennosides [senna] 8.6 mg Tablet 8.6 mg PO DAILY loperamide 2 mg capsule 2 mg PO Q6H PRN (Reason: Loose Stool) trazodone 50 mg tablet 50 mg PO BEDTIME bisacodyl 10 mg Suppository [address] DAILY PRN (Reason: Constipation) ferrous sulfate 325 mg (65 mg iron) Tablet 325 mg PO DAILY esomeprazole magnesium 40 mg capsule,delayed release(DR/EC) 40 mg PO DAILY Fleet Enema 19-7 gram/118 mL Enema [address] DAILY PRN (Reason: Constipation) folic acid 1 mg Tablet 1 mg PO DAILY gabapentin 100 mg capsule 100 mg PO BEDTIME clotrimazole 1 % Cream 1 appl TOPICAL DAILY PRN (Reason: Rash) Rx Instructions: apply to groin sertraline 50 mg tablet 100 mg PO DAILY cholecalciferol (vitamin D3) 25 mcg (1,000 unit) Tablet 25 mcg PO DAILY melatonin 5 mg Tablet 10 mg PO BEDTIME omega [id number]-fish oil [Fish Oil] 1,000 mg (120 mg-180 mg) Capsule 1 cap PO DAILY Eliquis 5 mg tablet 5 mg PO BID Discontinued acetaminophen 325 mg Tablet 650 mg PO Q6H PRN (Reason: pain or fever) amlodipine 5 mg tablet 5 mg PO DAILY spironolactone 25 mg tablet 25 mg PO DAILY metoprolol tartrate 25 mg tablet 75 mg PO BID Discharge Orders: Discharge Order (Routine); Ordered 11/22/24 Ordered By: Beatrice Shultz Diet: Low salt diet Activity on Discharge: As tolerated Stand Alone Forms: Patient Portal Discharge page Print Language: Bruneian Other Ambulatory Orders: Basic Metabolic Panel (Routine) Timeframe: 1 Week Facility: [facility] - Location: Laboratory Ordered By: Beatrice Shultz Complete Blood Count Auto Diff (Routine) Timeframe: 1 Week Facility: [facility] - Location: Laboratory Ordered By: Beatrice Shultz Care Plan Goals: cardio-pulmonary health Health Concerns: heart failure - start empagliflozin 10 mg daily - start Entresto 49-51 mg daily - start furosemide 20 mg twice daily PLUS potassium chloride 20 mEq twice daily; recheck BMP in 1 week - stop amlodipine - stop spironolactone - follow up with [facility] Cardiology in 2 weeks - Low-sodium diet: less than 2000 mg of sodium daily. Weigh yourself daily and call your doctor if your weight goes up by more than 3 lb/day or 5 lb/week. atrial fibrillation - take amiodarone 200 mg twice daily for 28 days, then 200 mg once daily - decrease metoprolol tartrate from 75 mg to 50 mg twice daily - resume apixaban 5 mg twice daily pneumonia - completed antibiotics chronic GI blood loss anemia - recheck CBC in 1 week hypoxia - oxygen 2L via nasal cannula at night Please follow up with your primary care doctor within 1 week. Return to the hospital if you experience recurrent or worsening symptoms. Plan of Treatment: see above Assessment: See Discharge Summary.
--- NOTE | 2024-04-08 12:17 | MHC.CM.PN ---
DC summary has been faxed to Trey @ [phone] d/t issues with [employer].
--- NOTE | 2024-04-13 17:57 | P.CDIM_ITS ---
PROVIDER RESPONSE TEXT: To clarify, the appropriate diagnosis supported by the clinical indicators: Hypokalemia: actual QUERY TEXT: PHYSICIAN'S DOCUMENTATION REQUEST Date of Query: 04/08/2024 08:30 AM EST Patient Name: Traci Morris Admit Date: 03/26/2024 Dear Beatrice Shultz MD, A review of the medical record indicates additional documentation may be needed. Please review below and update the documentation accordingly. Clinical Indicators: LABS: potassium 3.1 L 3.0 L Klor-Con Based on the above, is there a diagnosis that correlates with these lab findings: Hypokalemia possible, probable, suspected etc. Labs indicate a diagnosis of (please specify) Other (explain) Clinically unable to determine (explain) Thank you, Sadie Urbano, CCS, CDIS Use of terms such as suspected, likely, concern for, or probable (associated with a specific diagnosi s that is being evaluated, monitored, or treated as if it exists) are acceptable and can be coded in the inpatient se tting, when documented at the time of discharge. Please use your independent medical judgment in providing your response. THIS QUERY IS PART OF THE PERMANENT MEDICAL RECORD
== END 2024-04-08 13:04 | DRG 871 ==
LOC: HO.ED 13:38 → HO.ICU 03-27 12:54 → HO.EDOVER 03-28 06:30 → HO.IMC 03-28 07:22
PROVIDERS: Internal Medicine; Nurse Practitioner Family; Student in an Organized Health Care Education/Training Program; Admitting Provider Internal Medicine Critical Care Medicine; Emergency Provider Emergency Medicine; PCP Family Medicine; Visit Provider Family Medicine
DX: A41.9 Sepsis, unspecified organism (principal); I50.23 Acute on chronic systolic (congestive) heart failure; J69.0 Pneumonitis due to inhalation of food and vomit; J96.01 Acute respiratory failure with hypoxia; K72.00 Acute and subacute hepatic failure without coma; E87.21 Acute metabolic acidosis; I51.81 Takotsubo syndrome; I11.0 Hypertensive heart disease with heart failure; K80.20 Calculus of gallbladder without cholecystitis without obstruction; I48.0 Paroxysmal atrial fibrillation; E87.6 Hypokalemia; D50.0 Iron deficiency anemia secondary to blood loss (chronic); I95.9 Hypotension, unspecified; E86.0 Dehydration; E11.9 Type 2 diabetes mellitus without complications; Z20.822 Contact with and (suspected) exposure to COVID-19; Z87.891 Personal history of nicotine dependence; Z79.01 Long term (current) use of anticoagulants; Z79.84 Long term (current) use of oral hypoglycemic drugs; Z79.899 Other long term (current) drug therapy
CPT/HCPCS: 0241U; 36415; 71045; 76705; 80048; 80053; 80076; 80202; 81003; 82040; 82248; 82272; 82947; 83605; 83690; 83735; 83880; 84100; 84443; 84484; 85014; 85018; 85025; 85027; 85610; 86704; 86706; 86709; 86803; 86850; 86900; 86901; 86923; 87040; 87205; 87340; 93005; 93306; 94640; 99285; C1758; J0613; J0692; J0696; J1940; J2919; J3370; J3371; J3430; J3475; P9016; Q9957

== ENCOUNTER → 2024-03-26 10:01 | Outpatient (BNV) | payer MEDICARE, MEDICAID, SELFPAY | PROVIDERS: Admitting Provider Internal Medicine Critical Care Medicine; Emergency Provider Emergency Medicine; PCP Family Medicine; Visit Provider Internal Medicine Cardiovascular Disease | DX: R06.02 Shortness of breath (principal); R94.31 Abnormal electrocardiogram [ECG] [EKG] | CPT/HCPCS: 93010 ==

== ENCOUNTER 2024-03-26 13:40 | Outpatient (BNV) | payer MEDICARE, MEDICAID, SELFPAY | END 2024-04-05 17:07 | PROVIDERS: Admitting Provider Internal Medicine Critical Care Medicine; Emergency Provider Emergency Medicine; PCP Family Medicine; Visit Provider Internal Medicine Cardiovascular Disease | DX: I48.91 Unspecified atrial fibrillation (principal) | CPT/HCPCS: 93010 ==

== ENCOUNTER 2024-03-26 13:40 | Outpatient (BNV) | payer MEDICARE, MEDICAID, SELFPAY | END 2024-04-01 15:00 | PROVIDERS: Admitting Provider Internal Medicine Critical Care Medicine; Emergency Provider Emergency Medicine; PCP Family Medicine; Visit Provider Internal Medicine Cardiovascular Disease | DX: I51.81 Takotsubo syndrome (principal); I34.0 Nonrheumatic mitral (valve) insufficiency | CPT/HCPCS: 93306 ==

== ENCOUNTER 2024-03-26 13:40 | Outpatient (BNV) | payer MEDICARE, MEDICAID, SELFPAY | END 2024-04-04 11:04 | PROVIDERS: Admitting Provider Internal Medicine Critical Care Medicine; Emergency Provider Emergency Medicine; PCP Family Medicine; Visit Provider Radiology Diagnostic Radiology | DX: J18.9 Pneumonia, unspecified organism (principal) | CPT/HCPCS: 71045 ==

== ENCOUNTER 2024-03-26 13:40 | Outpatient (BNV) | payer MEDICARE, MEDICAID, SELFPAY | END 2024-03-27 21:01 | PROVIDERS: Admitting Provider Internal Medicine Critical Care Medicine; Emergency Provider Emergency Medicine; PCP Family Medicine; Visit Provider Internal Medicine Cardiovascular Disease | DX: I48.91 Unspecified atrial fibrillation (principal) | CPT/HCPCS: 93010 ==

== ENCOUNTER → 2024-03-26 13:40 | Outpatient (BNV) | payer MEDICARE, MEDICAID, SELFPAY | PROVIDERS: Admitting Provider Internal Medicine Critical Care Medicine; Emergency Provider Emergency Medicine; PCP Family Medicine; Visit Provider Internal Medicine | DX: A41.9 Sepsis, unspecified organism (principal) | CPT/HCPCS: 99222 ==

== ENCOUNTER → 2024-03-26 13:40 | Outpatient (BNV) | payer MEDICARE, MEDICAID, SELFPAY | PROVIDERS: Admitting Provider Internal Medicine Critical Care Medicine; Emergency Provider Emergency Medicine; PCP Family Medicine; Visit Provider Internal Medicine | DX: I50.9 Heart failure, unspecified (principal); I50.21 Acute systolic (congestive) heart failure; A41.9 Sepsis, unspecified organism; D64.9 Anemia, unspecified | CPT/HCPCS: 99231; 99232; 99233; 99239 ==

== ENCOUNTER → 2024-03-26 13:40 | Outpatient (BNV) | payer MEDICARE, MEDICAID, SELFPAY | PROVIDERS: Admitting Provider Internal Medicine Critical Care Medicine; Emergency Provider Emergency Medicine; PCP Family Medicine; Visit Provider Internal Medicine Cardiovascular Disease | DX: I50.9 Heart failure, unspecified (principal); I48.0 Paroxysmal atrial fibrillation | CPT/HCPCS: 99223; 99232; 99233 ==

== ENCOUNTER → 2024-03-26 13:40 | Outpatient (BNV) | payer MEDICARE, MEDICAID, SELFPAY | PROVIDERS: Admitting Provider Internal Medicine Critical Care Medicine; Emergency Provider Emergency Medicine; PCP Family Medicine; Visit Provider Nurse Practitioner Family | DX: A41.9 Sepsis, unspecified organism (principal); J18.9 Pneumonia, unspecified organism; D64.9 Anemia, unspecified | CPT/HCPCS: 99223; 99291; 99499 ==

== ENCOUNTER 2024-04-22 12:52 | Inpatient (IN) | payer MEDICARE, OTHER, SELFPAY ==
[2024-04-22] VITALS (9 sets, daily range): BP systolic 125–203; BP diastolic 41–78; PULSE 78–100; RESP 13–20; TEMP 36.1–36.6; O2SAT 93–100; BMI 21.5
--- NOTE | ~2024-04-22 | CT_ITS ---
EXAMINATION: CT ABDOMEN AND PELVIS WITHOUT CONTRAST CLINICAL INFORMATION: Acute kidney injury COMPARISON: Abdominal ultrasound on 03/26/2024 TECHNIQUE: Multidetector volumetric imaging was performed from the superior aspect of the liver through the pubic symphysis. Sagittal and coronal reformatted images were obtained on the technologist's workstation. This CT examination was performed using dose optimization techniques as appropriate, variously including the following: *Automated exposure control *Adjustment of mA and/or kV according to patient size (this includes techniques or standardized protocols for targeted exams where dose is matched to indication/reason for exam; i.e. extremities or head) *Use of iterative reconstruction technique DLP: 511 mGy-cm FINDINGS: LUNG BASES: Mild emphysema. LIVER, GALLBLADDER, AND BILIARY TREE: The liver is normal in size, shape, and attenuation. No focal hepatic lesion or biliary ductal dilatation is present. The gallbladder is unremarkable with no evidence of gallbladder wall thickening, or obvious pericholecystic inflammatory changes. There is a 1.2 cm calcified gallstone. PANCREAS: Unremarkable. SPLEEN: Unremarkable. ADRENAL GLANDS: There is a 1.6 cm left adrenal adenoma. KIDNEYS AND URETERS: The kidneys are normal in size, shape, and attenuation. No hydronephrosis, hydroureter, or calculi seen. No perinephric stranding. BLADDER: Punctate focus of air anteriorly. GASTROINTESTINAL TRACT: The small and large bowel are unremarkable. The appendix is unremarkable. Colonic diverticulosis is noted. ABDOMINAL WALL: No significant hernia is appreciated. LYMPH NODES: Normal. VASCULAR: The abdominal aorta is normal in caliber. There is severe atherosclerotic disease. PELVIC VISCERA: Prior hysterectomy. OSSEOUS STRUCTURES: Osteopenia. Multiple chronic compression fractures at L5, L3, L1, T10. Orthopedic hardware of the left proximal femur. CT/CT abdomen pelvis wo IV con IMPRESSION: 1. Punctate focus of air in the urinary bladder. Recommend correlation with recent instrumentation. 2. Cholelithiasis. 3. Left adrenal adenoma. 4. Multiple chronic compression fractures. Fleischner guidelines were followed. Electronically signed by: Laurence Granados MD 04/22/2024 06:55 PM [place]
--- NOTE | ~2024-04-22 | XR_ITS ---
EXAMINATION: XR CHEST CLINICAL INFORMATION: ?Pnemonia COMPARISON: cxr on 04/04/24 TECHNIQUE: 2 views of the chest were obtained. FINDINGS: No significant abnormality is noted involving the heart, lungs, mediastinum, bony thorax or soft tissues. XR/XR chest 2V IMPRESSION: Unremarkable examination. Electronically signed by: Laurence Granados MD 04/22/2024 06:01 PM EST
--- NOTE | 2024-04-22 13:19 | ED_ITS ---
HPI - Recheck/Abnormal Lab/Rx General Chief Complaint: Recheck/Abnormal Lab/Rx Stated Complaint: ABNORMAL LABS PER EMS Time Seen by Provider: 04/22/24 13:12 Source: patient and EMS Mode of arrival: EMS Limitations: other (Patient lacks insight as to why she was here) History of Present Illness ED Provider: Dr. Adrian Kang HPI narrative: 73-year-old female with a history of anemia, depression, long-term anticoagulation, insomnia, GERD, anxiety, hyperlipidemia, atrial fibrillation, hypokalemia, pneumonia, CVA with hemiplegia, vascular dementia, cardiomyopathy was sent to the emergency department from her care home facility for evaluation of an elevated potassium. Patient's potassium was 6.7. Patient normally has a history of hypokalemia and is on potassium chloride 20 mEq b.i.d. Related Data Home Medications ?Medication ?Instructions ?Recorded ?Confirmed apixaban 5 mg tablet (Eliquis) 5 mg PO BID 03/26/24 03/26/24 atorvastatin 80 mg tablet 80 mg PO BEDTIME 03/26/24 03/26/24 bisacodyl 10 mg rectal suppository 10 mg IN DAILY PRN Constipation 03/26/24 03/26/24 cholecalciferol (vitamin D3) 25 25 mcg PO DAILY 03/26/24 03/26/24 mcg (1,000 unit) tablet clotrimazole 1 % topical cream 1 appl topical DAILY PRN Rash 03/26/24 03/26/24 esomeprazole magnesium 40 mg 40 mg PO DAILY 03/26/24 03/26/24 capsule,delayed release ferrous sulfate 325 mg (65 mg 325 mg PO DAILY 03/26/24 03/26/24 iron) tablet folic acid 1 mg tablet 1 mg PO DAILY 03/26/24 03/26/24 gabapentin 100 mg capsule 100 mg PO BEDTIME 03/26/24 03/26/24 loperamide 2 mg capsule 2 mg PO Q6H PRN Loose Stool 03/26/24 03/26/24 melatonin 5 mg tablet 10 mg PO BEDTIME 03/26/24 03/26/24 metformin 500 mg tablet 500 mg PO BID 03/26/24 03/26/24 omega 1-wkj-psf-fish oil 1,000 mg 1 cap PO DAILY 03/26/24 03/26/24 (120 mg-180 mg) capsule (Fish Oil) sennosides 8.6 mg tablet (senna) 8.6 mg PO DAILY 03/26/24 03/26/24 sertraline 50 mg tablet 100 mg PO DAILY 03/26/24 03/26/24 sodium phosphates 19 gram-7 118 ml IN DAILY PRN Constipation 03/26/24 03/26/24 gram/118 mL enema (Fleet Enema) trazodone 50 mg tablet 50 mg PO BEDTIME 03/26/24 03/26/24 Previous Rx's ?Medication ?Instructions ?Recorded amiodarone 200 mg tablet See Rx Instructions .Route 04/08/24 .COMPLEX #56 tabs empagliflozin 10 mg tablet 10 mg PO DAILY #30 tabs 04/08/24 (Jardiance) furosemide 20 mg tablet 20 mg PO BID@0900,1800 #60 tabs 04/08/24 metoprolol tartrate 50 mg tablet 50 mg PO BID #60 tabs 04/08/24 potassium chloride 20 mEq oral 20 meq PO BID #60 ea 04/08/24 packet sacubitril 49 mg-valsartan 51 mg 1 tab PO BID #60 tabs 04/08/24 tablet (Entresto) Allergies Allergy/AdvReac Type Severity Reaction Status Date / Time tuberculin, purified protein Allergy Unknown UNK Verified 04/22/24 13:09 deriva [TB TEST] aspirin [ASA] AdvReac Unknown GI UPSET, Verified 04/22/24 13:09 stomach upset Review of Systems 2 Review of Systems: Yes all other systems are reviewed and are negative [facility] Past Medical History [facility] Narrative: Social history: The patient is a long-term resident at [facility] Medical History (Updated 04/22/24 @ 15:31 by Adrian Kang MD) Paroxysmal atrial fibrillation Acute CHF Cardiomyopathy Sepsis Anemia Pneumonia Social History Social History Household Members: Unknown / Unable to assess Housing: Alf Patient Tobacco Use Status: Former Tobacco user Tobacco use type: Cigarette e-Cigarette/Vaping Use: Never Used Second Hand Smoke Exposure: No Advance Directives: Yes Advance Directives on File: Yes Advance Directives Date on File: 04/11/24 service: No Physical Exam 2 Vital Signs: Vital Signs: Last Vital Signs Temp 97.6 F 04/22/24 15:17 Pulse 78 04/22/24 15:17 Resp 20 04/22/24 15:17 BP 197/59 H 04/22/24 15:17 Pulse Ox 99 04/22/24 15:17 O2 Del Method Room Air 04/22/24 15:17 BMI result Body Mass Index 21.5 Vital signs revealed an elevated blood pressure of 203/68 Exam: General: Awake, oriented to person, lacks insight as to why she was here in the emergency department, does not appear to be in distress Head: Normocephalic, atraumatic EENT: PERRL, Lids normal, sclera normal, conjunctiva normal, nose normal , ears normal, throat without erythema or exudates Neck: Supple, no adenopathy Lung: breath sounds symmetric, no wheezing, rales or rhonchi Chest: symmetric movement, nontender Heart: regular rate and rhythm, normal S1, S2 , 3/6 systolic murmur best heard at the left lower sternal border Abdomen: soft, non-tender, nondistended, normal bowel sounds Back: no vertebral tenderness, no CVAT Extremities: no deformities, moves all extremities symmetrically Medications Administered Discontinued Medications Generic Name Dose Route Start Last Admin Trade Name Freq PRN Reason Stop Dose Admin Sodium Chloride 1,000 mls @ 999 mls/hr 04/22/24 13:55 04/22/24 14:21 Ns IV 04/22/24 14:55 999 mls/hr .Q1H1M STA Administration Sodium Zirconium Cyclosilicate 10 gm 04/22/24 13:55 04/22/24 14:21 Sodium Zirconium Cyclosilicate 10 Gm Powd.Pack PO 04/22/24 13:56 10 gm ONCE ONE Administration Medical Decision Making Medical Decision Making [facility] Narrative: 73-year-old female with a history of anemia, depression, long-term anticoagulation, insomnia, GERD, anxiety, hyperlipidemia, atrial fibrillation, hypokalemia, pneumonia, CVA with hemiplegia, vascular dementia, cardiomyopathy was sent to the emergency department from her care home facility for evaluation of an elevated potassium. Patient's potassium was 6.7. Patient normally has a history of hypokalemia and is on potassium chloride 20 mEq b.i.d.. Vital signs did reveal an elevated blood pressure otherwise unremarkable. Physical exam did reveal a 2/6 systolic murmur best heard at the left sternal border, exam is otherwise unremarkable Differential diagnosis: ?Includes but is not limited to hyperkalemia secondary to renal failure, potassium supplement induced hyperkalemia, urinary tract infection, endocarditis, electrolyte abnormalities, anemia Following evaluation was ordered: CBC, CMP, urinalysis, lactic acid, blood cultures x2, EKG, CT scan of the abdomen pelvis without IV contrast evaluate for assess Patient was initially treated with the following: Normal saline IV x1 L, Lokelma 10 mg orally Course: 14:53 My interpretation patient's is as follows: WBC elevated 24,600 left shift 92 neutrophils and 3 lymphocytes. H&H was normal 11.9 and 38.4. Platelet count elevated 554,000. Potassium elevated 7.0. BUN and creatinine elevated 33 and 1.65 which is elevated above baseline from 04/08/2024 of 22 and 0.92. GFR decreased from 47.9 to 25.4. Glucose elevated 213. I believe that the patient's elevated potassium caused by acute kidney injury and being on potassium supplements. Cath urine sample obtained and urinalysis is pending. CT scan of the abdomen pelvis to rule out obstructive process is also pending. Given the life-threatening potential of an elevated potassium in the possibility of worsening renal failure, the patient will need to be admitted so that we can follow her kidney numbers as well as her potassium. I did discuss admission over tiger text with the covering hospitalist, physician kindergarten instructional assistant Magali Sheikh the hospitalist service for further management. 15:49 Urinalysis was positive for glucose only, no significant proteinuria noted. Admission/Observation Consideration of admission/observation: Escalation of care including admission/observation considered Consult Healthcare Provider Management of the patient was discussed with: Hospitalist Lab Data [facility] Lab Attestation statement: I reviewed the patient's lab results. 04/22/24 13:22 04/22/24 13:22 Labs: Lab Results 04/22/24 04/22/24 Range/Units 13:22 15:07 WBC 24.6 H (4.8-10.8) X10*3/uL RBC 4.54 D (4.20-5.50) X10*6/uL Hgb 11.9 L (12.0-16.0) g/dl Hct 38.4 (37.0-47.0) % MCV 84.6 (80.0-98.0) fL MCH 26.2 L (27.0-33.0) pg MCHC 31.0 (31.0-35.0) g/dl RDW 18.1 H (11.0-16.0) % Plt Count 554 H D (160-400) X10*3/uL MPV 10.5 (9.4-12.3) fL Immature Gran % (Auto) 0.6 H (0.0-0.4) % Neut % (Auto) 92.7 H (45-73) % Lymph % (Auto) 3.1 L (20-40) % [place] % (Auto) 3.4 (2-11) % Eos % (Auto) 0.0 (0-4) % Baso % (Auto) 0.2 (0-2) % Lymph # (Auto) 0.8 L (1.2-4.9) X10*3/uL [place] # (Auto) 0.8 (0.1-1.2) X10*3/uL Eos # (Auto) 0.0 (0.0-0.4) X10*3/uL Baso # (Auto) 0.1 (0.0-0.2) X10*3/uL Abs Immat Gran (auto) 0.14 H (0.00-0.03) X10*3/uL Absolute Neuts (auto) 22.8 H (2.0-8.3) x10*3/uL Absolute Nucleated RBC 0.000 (0.0-0.012) X10*3/uL Nucleated RBC % (auto) 0.0 (0.0-0.2) /100WBC Smear Tech's Comments VERIFIED Sodium 135 (135-145) mmol/L Potassium 7.0 H* D (3.3-5.1) mmol/L Chloride 104 (96-108) mmol/L Carbon Dioxide 22 (22-29) mmol/L Anion Gap 16 (12-20) BUN 33 H (9-16) mg/dL Creatinine 1.65 H (0.5-1.4) mg/dL Estim Creat Clear Calc 25.4 Estimated GFR 31 Random Glucose 213 H (60-115) mg/dL Calcium 10.7 H D (8.4-10.2) mg/dL Total Bilirubin 0.3 (0.0-1.0) mg/dL AST 47 H (5-31) U/L ALT 21 (0-31) U/L Alkaline Phosphatase 73 (39-117) U/L Total Protein 8.1 H (6.5-8.0) g/dL Albumin 3.8 (3.5-5.0) g/dL Urine Color Yellow Urine Appearance Clear Urine pH 6.0 (5.0-9.0) Ur Specific [place] 1.025 (1.005-1.025) Urine Protein Trace (Neg-Trace) mg/dL Urine Glucose (UA) >=1000 H (Negative) mg/dL Urine Ketones Negative (Negative) mg/dL Urine Blood Negative (Negative) Urine Nitrite Negative (Negative) Ur Leukocyte Esterase Negative (Negative) Urine RBC 0-2 (0-2) /HPF Urine WBC 0-5 (0-5) /HPF Ur Squamous Epith Cells 0-2 (0-2) /HPF Urine Bacteria None Seen (None Seen) Hyaline Casts 0-2 (0-2) /LPF Independent Interpretation I performed an independent interpretation of an: EKG Interpretation: My independent interpretation of the patient's 12 EKG done at 15:01 hours is as follows: Normal sinus rhythm rate of 81, normal IN interval, prolonged QRS of 102 milliseconds, normal QTC of 469 milliseconds, no ST segment elevation, less than [address] segment depression 1, aVL, V4 through V6 which eighteen are old compared to EKG dated 03/27/2024 at 21:01 hours. Patient was inverted T-waves in lead 1 and aVL with no peaked T-waves. External Record Review External record reviewed: Outpatient record Chronic Conditions Patient?s care impacted by: Other (Stroke, cardiomyopathy) Critical Care Time Critical Care Time Critical Care Time: Yes Total Critical Care Time: 45 Attestation: Critical Care: The patient was critically ill with a high probability of imminent or life threatening deterioration. I spent greater than 30 minutes of discontinuous time evaluating the patient,delivering critical care at the bedside, discussing and evaluating pertinent data with consultants. Critical care time does not include time spent performing separately billable procedures or teaching. Total time spent performing critical care was 45 minutes. Discharge Plan Discharge Clinical Impression: Acute hyperkalemia, Acute kidney injury Patient Disposition: Admitted As Inpatient Print Language: Amharic
[2024-04-22 13:32] LABS: Basophils Absolute Auto 0.1 X10*3/uL (0.0-0.2); Basophils Percent Auto 0.2 % (0-2); Hematocrit 38.4 % (37.0-47.0); Hemoglobin 11.9 g/dl (12.0-16.0); Imm Gran Abs Auto 0.14 X10*3/uL (0.00-0.03); Imm Gran Pct Auto 0.6 % (0.0-0.4); Lymphocytes Absolute Auto 0.8 X10*3/uL (1.2-4.9); Lymphocytes Percent Auto 3.1 % (20-40); MANUAL DIFF FLAG SCAN; Mean Corpuscular Hemoglobin 26.2 pg (27.0-33.0); Mean Corpuscular Volume 84.6 fL (80.0-98.0); Mean Platelet Volume 10.5 fL (9.4-12.3); Monocytes Absolute Auto 0.8 X10*3/uL (0.1-1.2); Monocytes Percent Auto 3.4 % (2-11); Neutrophils Absolute Auto 22.8 x10*3/uL (2.0-8.3); Neutrophils Percent Auto 92.7 % (45-73); Platelet Count 554 X10*3/uL (160-400); Red Blood Count 4.54 X10*6/uL (4.20-5.50); Red Cell Distribution Width 18.1 % (11.0-16.0); SCAN SMEAR FLAG 1; White Blood Count 24.6 X10*3/uL (4.8-10.8)
[2024-04-22 13:49] LABS: Alanine Aminotransferase 21 U/L (0-31); Albumin Level 3.8 g/dL (3.5-5.0); Alkaline Phosphatase 73 U/L (39-117); Anion Gap 16 (12-20); Aspartate Amino Transferase 47 U/L (5-31); Bilirubin Total 0.3 mg/dL (0.0-1.0); Blood Urea Nitrogen 33 mg/dL (9-16); Calcium 10.7 mg/dL (8.4-10.2); Carbon Dioxide 22 mmol/L (22-29); Chloride 104 mmol/L (96-108); Creatinine Clr Calc Pharmacy 25.4; Estimated Glomerular Filt Rate 31; Glucose Random 213 mg/dL (60-115); Sodium 135 mmol/L (135-145); Total Protein 8.1 g/dL (6.5-8.0)
[2024-04-22] MEDS: Sodium Zirconium Cyclosilicate 10 GM POWD.PACK PO ×2 (14:21→17:39)
[2024-04-22] MEDS: 0.9 % Sodium Chloride 1,000 ML 999 ML IV (14:21)
[2024-04-22 14:25] LABS: SLIDE REVIEW VERIFIED
--- NOTE | 2024-04-22 14:51 | ECG_ITS ---
Test Reason : HYPERKALEMIA Blood Pressure : / mmHG Vent. Rate : 081 BPM Atrial Rate : 081 BPM P-R Int : 178 ms QRS Dur : 102 ms QT Int : 404 ms P-R-T Axes : -26 -33 119 degrees QTc Int : 469 ms Normal sinus rhythm Left axis deviation Left ventricular hypertrophy with repolarization abnormality ( R in aVL , [employer] product ) Abnormal ECG When compared with ECG of 05-APR-2024 16:58, Sinus rhythm has replaced Atrial fibrillation Vent. rate has decreased BY 47 BPM Nonspecific T wave abnormality no longer evident in Anterior leads Referred By: Adrian Kang Electronically Signed By:Leonard Ramos
[2024-04-22 15:21] LABS: Appearance Urine Clear; Color Urine Yellow; Glucose Urine UA >=1000 mg/dL (Negative); Leukocyte Esterase Urine Negative (Negative); Nitrite Urine Negative (Negative); Specific Gravity - Urine 1.025 (1.005-1.025); UMIC TRIGGER UACC YES; Urine Blood Negative (Negative); Urine Ketones Negative (Negative); Urine Protein Trace mg/dL (Neg-Trace)
[2024-04-22 15:31] LABS: Bacteria Urine None Seen (None Seen); Hyaline Casts Urine 0-2 /LPF (0-2); RBC Urine 0-2 /HPF (0-2); Squamous Epithelial Cell Urine 0-2 /HPF (0-2); WBC Urine 0-5 /HPF (0-5)
[2024-04-22 15:59] LABS: Lactic Acid 1.7 mmol/L (0.5-2.0)
--- NOTE | 2024-04-22 16:02 | PM.IMHP ---
History of Present Illness Date of Service: 04/22/24 Attending physician on admission: Beatrice Shultz Chief Complaint: Abnormal labs Pt is a 73-year-old female with a PMH significant for?paroxysmal AFib on Eliquis, HLD, HTN, hx of CVA with residual hemiplegia, ufv-grjvuts-enpawqsda type 2 diabetes, CKD3, and vascular dementia who presents to the ED from [facility] SNF?for evaluation of potassium of 6.7 from routine labs drawn at the facility. Patient is alert and oriented to self only. Patient states that she is cold and would like another blanket, but otherwise has no acute medical complaints. Denies chest pain/pressure, palpitations. No shortness a breath or difficulty breathing. Denies any musculoskeletal pain. No fever, nausea, vomiting, or abdominal pain. Review of records indicates patient was also experiencing vomiting, poor p.o. intake, and weight loss over the past month at SNF. In the ED pt was hypertensive up to 203/68, vitals otherwise stable and WNL. Labs were significant for leukocytosis 24.6, potassium 7.0 with repeat 6.0 after Lokelma and fluids, BUN 33, creatinine 1.65 (elevated from 0.92 on 04/08), and AST 47. UA negative for UTI. CXR . Pending CT of abdomen/pelvis pending. EKG demonstrated normal sinus rhythm without significant ischemic changes or tall peaked T-waves. Pt was treated with IVF and Lokelma. Pt will be admitted to the hospital for treatment and further evaluation of hyperkalemia in the setting of REINALDO on CKD 3. Review of Systems Review of Systems: Patient has no acute medical complaints [facility] Medical History Paroxysmal atrial fibrillation Acute CHF Cardiomyopathy Sepsis Anemia Pneumonia Social History Household Members: Unknown / Unable to assess Housing: Group Home Patient Tobacco Use Status: Former Tobacco user Tobacco use type: Cigarette e-Cigarette/Vaping Use: Never Used Second Hand Smoke Exposure: No Advance Directives: Yes Advance Directives on File: Yes Advance Directives Date on File: 04/11/24 service: No Meds Allergies Allergy/AdvReac Type Severity Reaction Status Date / Time tuberculin, purified protein Allergy Unknown UNK Verified 04/22/24 13:09 deriva [TB TEST] aspirin [ASA] AdvReac Unknown GI UPSET, Verified 04/22/24 13:09 stomach upset Home Medications ?Medication ?Instructions ?Recorded ?Confirmed ?Last Taken ?Type apixaban 5 mg tablet (Eliquis) 5 mg PO BID 03/26/24 04/22/24 03/25/24 19:00 History atorvastatin 80 mg tablet 80 mg PO BEDTIME 03/26/24 04/22/24 Unknown History bisacodyl 10 mg rectal suppository 10 mg KS DAILY PRN Constipation 03/26/24 04/22/24 Unknown History cholecalciferol (vitamin D3) 25 25 mcg PO DAILY 03/26/24 04/22/24 Unknown History mcg (1,000 unit) tablet clotrimazole 1 % topical cream 1 appl topical DAILY PRN Rash 03/26/24 04/22/24 Unknown History esomeprazole magnesium 40 mg 40 mg PO DAILY@0630 03/26/24 04/22/24 Unknown History capsule,delayed release ferrous sulfate 325 mg (65 mg 325 mg PO DAILY 03/26/24 04/22/24 Unknown History iron) tablet folic acid 1 mg tablet 1 mg PO DAILY 03/26/24 04/22/24 Unknown History gabapentin 100 mg capsule 100 mg PO BEDTIME 03/26/24 04/22/24 Unknown History loperamide 2 mg capsule 2 mg PO Q6H PRN Loose Stool 03/26/24 04/22/24 Unknown History melatonin 5 mg tablet 10 mg PO BEDTIME 03/26/24 04/22/24 Unknown History metformin 500 mg tablet 500 mg PO BID 03/26/24 04/22/24 Unknown History omega 2-vrx-yqb-fish oil 1,000 mg 1 cap PO DAILY 03/26/24 04/22/24 Unknown History (120 mg-180 mg) capsule (Fish Oil) sennosides 8.6 mg tablet (senna) 8.6 mg PO DAILY 03/26/24 04/22/24 Unknown History sertraline 50 mg tablet 100 mg PO DAILY 03/26/24 04/22/24 Unknown History sodium phosphates 19 gram-7 118 ml KS DAILY PRN Constipation 03/26/24 04/22/24 Unknown History gram/118 mL enema (Fleet Enema) acetaminophen 325 mg tablet 650 mg PO Q6H PRN Fever Or Pain 04/22/24 04/22/24 Unknown History famotidine 20 mg tablet (Pepcid) 20 mg PO DAILY@1200 04/22/24 04/22/24 Unknown History mirtazapine 15 mg tablet (Remeron) See Rx Instructions .Route .COMPLEX 04/22/24 04/22/24 Unknown History ondansetron HCl 4 mg tablet 4 mg PO TIDWM 04/22/24 04/22/24 Unknown History Physical Exam Vital Signs and Narrative: Vital Signs: Last Vital Signs Temp 97.6 F 04/22/24 15:17 Pulse 78 04/22/24 15:17 Resp 20 04/22/24 15:17 BP 197/59 H 04/22/24 15:17 Pulse Ox 99 04/22/24 15:17 O2 Del Method Room Air 04/22/24 15:17 BMI result Body Mass Index 21.5 General: AOx1, not to time or situation and only partly to place. In no acute distress Resp: CTA bilaterally CVS: S1, S2, RRR GI: +BS, NT, no distention Skin: Warm, dry Neuro: Cranial nerves II-XII grossly intact bilaterally. Motor grossly intact bilaterally. Extremities: No edema. Feet in protective boots bilaterally. Psych: Pleasantly confused Results Labs 04/22/24 13:22 04/22/24 15:38 Labs: Laboratory Results - last 24 hr 04/22/24 04/22/24 04/22/24 13:22 15:07 15:37 MCV 84.6 MCH 26.2 L MCHC 31.0 RDW 18.1 H Plt Count 554 H D MPV 10.5 Immature Gran % (Auto) 0.6 H Neut % (Auto) 92.7 H Lymph % (Auto) 3.1 L [place] % (Auto) 3.4 Eos % (Auto) 0.0 Baso % (Auto) 0.2 Lymph # (Auto) 0.8 L [place] # (Auto) 0.8 Eos # (Auto) 0.0 Baso # (Auto) 0.1 Abs Immat Gran (auto) 0.14 H Absolute Neuts (auto) 22.8 H Absolute Nucleated RBC 0.000 Nucleated RBC % (auto) 0.0 Smear Tech's Comments VERIFIED Anion Gap 16 Estim Creat Clear Calc 25.4 Estimated GFR 31 Random Glucose 213 H Lactic Acid 1.7 Calcium 10.7 H D Total Bilirubin 0.3 AST 47 H ALT 21 Alkaline Phosphatase 73 Total Protein 8.1 H Albumin 3.8 Urine Color Yellow Urine Appearance Clear Urine pH 6.0 Ur Specific [place] 1.025 Urine Protein Trace Urine Glucose (UA) >=1000 H Urine Ketones Negative Urine Blood Negative Urine Nitrite Negative Ur Leukocyte Esterase Negative Urine RBC 0-2 Urine WBC 0-5 Ur Squamous Epith Cells 0-2 Urine Bacteria None Seen Hyaline Casts 0-2 Assessment and Plan (1) Acute kidney injury: Status: Acute (2) Acute hyperkalemia: Status: Acute Plan Pt is a 73-year-old female with a PMH significant for?paroxysmal AFib on Eliquis, HLD, HTN, hx of CVA with residual hemiplegia, txe-mfjboxd-rpzrluwag type 2 diabetes, CKD3, and vascular dementia who presents to the ED from [facility]?for evaluation of potassium of 6.7 from routine labs drawn at the facility. Pt will be admitted to the hospital for treatment and further evaluation of hyperkalemia in the setting of REINALDO on CKD 3. Acute hyperkalemia Initial potassium 7.0 at time of presentation; no EKG changes, patient asymptomatic Likely in the setting of potassium supplementation and REINALDO on CKD Patient given Lokelma in the ED with repeat 6.0 We will give additional Lokelma 10 g Will repeat labs and consider insulin, dextrose, albuterol if remains elevated Hold potassium supplementation and Entresto Trend labs Monitor on telemetry REINALDO on CKD Creatinine 1.65, elevated from 0.92 2 weeks prior Patient received 1 L IVF in the ED Will hold on additional fluid given patient's history of CHF Hold Lasix, Entresto Follow kidney function Leukocytosis WBCs 24.6 at time of presentation Pt with chronic leukocytosis, though elevated above baseline of around 13-14 No clear source of infection, no sepsis: No tachycardic, tachypnea, or fever Will check CRP, procalcitonin, C-Diff, and CXR Paroxysmal AFib Continue amiodarone, Eliquis, and metoprolol HTN Continue metoprolol HFrEF Not in acute exacerbation Hold Entresto, Lasix due to REINALDO Non-insulin dependent type 2 diabetes SSI, diabetic diet Continue Jardiance Mood disorder/dementia Continue home mood stabilizers Full Code Attending:?Dr. Shultz DVT Prophylaxis: On Eliquis Pt will require a hospitalization of at least two nights for treatment of?acute hypokalemia likely iatrogenic and in the setting of REINALDO on CKD. Patient will require administration of IVF, as well as close monitoring of labs including electrolytes and kidney function. Quality Stroke Does the patient have a stroke diagnosis?: No VTE Prior VTE?: No VTE Risk Level:: Medical - moderate - high VTE Device Contraindication: Treatment Not Indicated VTE Drug Contraindication: N/A - Med Ordered
[2024-04-22 16:10] LABS: Anion Gap 17 (12-20); Blood Urea Nitrogen 29 mg/dL (9-16); Calcium 10.7 mg/dL (8.4-10.2); Carbon Dioxide 22 mmol/L (22-29); Chloride 103 mmol/L (96-108); Creatinine Clr Calc Pharmacy 27.1; Estimated Glomerular Filt Rate 33; Glucose Random 196 mg/dL (60-115); Sodium 136 mmol/L (135-145)
--- NOTE | 2024-04-22 16:30 | PHA.MEDREC ---
Addendum entered by Javy Sinclair RP 04/22/24 16:41: MED REC CHECKED Original Note: Pharmacy Consult ? Medication Reconciliation Pharmacy has completed the medication reconciliation. Utilized list from [facility] to confirm med list.
[2024-04-22 17:04] LABS: C Reactive Protein 1.79 mg/dL (< or = 0.50)
[2024-04-22 17:26] LABS: Procalcitonin 0.15 ng/mL
[2024-04-22 17:27] LABS: Influenza A PCR NEGATIVE (Negative); Influenza B PCR NEGATIVE (Negative); Resp Syncy Virus RNA Qual PCR NEGATIVE (Negative); SARS COV2 PCR INHOUSE NEGATIVE (Negative)
[2024-04-22] MEDS: Albuterol Sulfate 90 MCG 8 GM INHALER 2 PUFF INHALE (17:39)
[2024-04-22 20:29] LABS: Potassium 5.3 mmol/L (3.3-5.1)
[2024-04-22] MEDS: Metoprolol Tartrate 50 MG TABLET PO (23:05)
[2024-04-22] MEDS: Atorvastatin Calcium 80 MG TABLET PO (23:06)
[2024-04-22] MEDS: Gabapentin 100 MG CAPSULE PO (23:06)
[2024-04-22] MEDS: Apixaban 5 MG TABLET PO (23:06)
[2024-04-22] MEDS: 0.9 % Sodium Chloride Flush 3 ML SYRINGE IVFLUSH (23:12)
[2024-04-23] VITALS (7 sets, daily range): BP systolic 112–125; BP diastolic 34–64; PULSE 69–93; RESP 16–18; TEMP 35.9–36.9; O2SAT 96–99
[2024-04-23] MEDS: Omeprazole 20 MG CAPSULE.DR PO (05:38)
[2024-04-23 07:43] LABS: Hematocrit 34.3 % (37.0-47.0); Hemoglobin 10.5 g/dl (12.0-16.0); Mean Corpuscular HGB Conc 30.6 g/dl (31.0-35.0); Mean Corpuscular Hemoglobin 26.1 pg (27.0-33.0); Mean Corpuscular Volume 85.3 fL (80.0-98.0); Mean Platelet Volume 10.6 fL (9.4-12.3); Platelet Count 513 X10*3/uL (160-400); Red Blood Count 4.02 X10*6/uL (4.20-5.50); White Blood Count 17.3 X10*3/uL (4.8-10.8)
[2024-04-23 08:31] LABS: Anion Gap 15 (12-20); Blood Urea Nitrogen 24 mg/dL (9-16); Carbon Dioxide 25 mmol/L (22-29); Chloride 103 mmol/L (96-108); Estimated Glomerular Filt Rate 44; Glucose Random 133 mg/dL (60-115); Potassium 4.6 mmol/L (3.3-5.1); Sodium 138 mmol/L (135-145)
--- NOTE | 2024-04-23 08:54 | MHC.CM.PN ---
PT IS A LTC RESIDENT OF [facility] MESSAGE LEFT FOR JOSE, SOLO PABLO [phone] COPY OF IMM WILL BE SENT TO JOSE VIA CERTIFIED MAIL PCP: DEENA MICHAEL PT WILL NEED BLS TRANSPORT BACK TO SNF [facility]
[2024-04-23 08:55] LABS: Calcium 9.9 mg/dL (8.4-10.2)
[2024-04-23] MEDS: Ferrous Sulfate 324 MG TABLET.DR PO (08:55)
[2024-04-23] MEDS: Empagliflozin 10 MG TABLET PO (08:55)
[2024-04-23] MEDS: Sertraline HCL 100 MG TABLET PO (08:55)
[2024-04-23] MEDS: Folic Acid 1 MG TABLET PO (08:55)
[2024-04-23] MEDS: Metoprolol Tartrate 50 MG TABLET PO ×2 (08:55→20:44)
[2024-04-23] MEDS: Apixaban 5 MG TABLET PO ×2 (08:56→20:44)
[2024-04-23] MEDS: Sennosides 8.6 MG TABLET PO (08:56)
[2024-04-23] MEDS: Ondansetron ODT 4 MG TAB.RAPDIS TRANSLINGU ×3 (08:56→16:45)
[2024-04-23] MEDS: Cholecalciferol (Vitamin D3) 25 MCG TABLET PO (08:56)
[2024-04-23] MEDS: Amiodarone HCL 200 MG TABLET PO ×2 (08:56→20:44)
[2024-04-23] MEDS: 0.9 % Sodium Chloride Flush 3 ML SYRINGE IVFLUSH ×2 (08:56→16:45)
[2024-04-23] MEDS: Famotidine 20 MG TABLET PO (12:46)
--- NOTE | 2024-04-23 13:50 | P.PNIM_ITS ---
Subjective Subjective Date of Service: 04/23/24 Interval History: minimal history but no complaints Review of Systems Review of Systems: Yes all other systems are reviewed and are negative Physical Exam 2 Vital Signs: Vital Signs: Last Vital Signs Temp 97.2 F 04/23/24 11:15 Pulse 75 04/23/24 11:15 Resp 18 04/23/24 11:15 BP 118/61 04/23/24 11:15 Pulse Ox 98 04/23/24 11:15 O2 Del Method Room Air 04/23/24 11:15 BMI result Body Mass Index 21.5 Gen: in no acute distress HEENT: sclera anicteric, moist mucus membranes Neck: supple Lungs: clear to auscultation bilaterally Heart: regular rate and rhythm, no murmurs Abd: soft, non-tender, non-distended Ext: no edema Skin: warm/well-perfused Neuro: alert and oriented x3, no focal findings Psych: appropriate affect Objective Data Active Medications Acetaminophen (Acetaminophen 325 Mg Tablet) 650 mg PO Q6H PRN PRN Reason: Pain, Mild (Pain Scale 1-3), fever or headache Amiodarone HCl (Amiodarone Hcl 200 Mg Tablet) 200 mg PO BID [facility] Stop: 05/06/24 21:30 Last Admin: 04/23/24 08:56 Dose: 200 mg Documented By: DEYA Amiodarone HCl (Amiodarone Hcl 200 Mg Tablet) 200 mg PO DAILY [facility] Apixaban (Apixaban 5 Mg Tablet) 5 mg PO BID [facility] Last Admin: 04/23/24 08:56 Dose: 5 mg Documented By: DEYA Atorvastatin Calcium (Atorvastatin Calcium 80 Mg Tablet) 80 mg PO BEDTIME [facility] Last Admin: 04/22/24 23:06 Dose: 80 mg Documented By: NATHAN Benzonatate (Benzonatate 100 Mg Capsule) 100 mg PO TID PRN PRN Reason: Cough Bisacodyl (Bisacodyl 10 Mg Supp.Rect) 10 mg [place] DAILY PRN PRN Reason: Constipation Calcium Carbonate (Calcium Carbonate 750 Mg Tab.Chew) 750 mg PO Q4H PRN PRN Reason: Heartburn Empagliflozin (Empagliflozin 10 Mg Tablet) 10 mg PO DAILY [facility] Last Admin: 04/23/24 08:55 Dose: 10 mg Documented By: DEYA Famotidine (Famotidine 20 Mg Tablet) 20 mg PO DAILY@1200 [facility] Last Admin: 04/23/24 12:46 Dose: 20 mg Documented By: DEYA Ferrous Sulfate (Ferrous Sulfate 324 Mg Tablet.) 324 mg PO DAILY [facility] Last Admin: 04/23/24 08:55 Dose: 324 mg Documented By: DEYA Folic Acid (Folic Acid 1 Mg Tablet) 1 mg PO DAILY [facility] Last Admin: 04/23/24 08:55 Dose: 1 mg Documented By: DEYA Gabapentin (Gabapentin 100 Mg Capsule) 100 mg PO BEDTIME [facility] Last Admin: 04/22/24 23:06 Dose: 100 mg Documented By: NATHAN Magnesium Hydroxide (Milk Of Magnesia 30 Ml Oral.Susp) 30 ml PO DAILY PRN PRN Reason: Constipation Melatonin (Melatonin 3 Mg Tablet) 6 mg PO BEDTIME PRN PRN Reason: Insomnia Metoprolol Tartrate (Metoprolol Tartrate 50 Mg Tablet) 50 mg PO BID [facility]; Protocol Last Admin: 04/23/24 08:55 Dose: 50 mg Documented By: DEYA Mirtazapine (Mirtazapine 15 Mg Tablet) 7.5 mg PO BEDTIME [facility] Stop: 04/29/24 21:30 Mirtazapine (Mirtazapine 15 Mg Tablet) 15 mg PO BEDTIME [facility] Omeprazole (Omeprazole 20 Mg Capsule.) 20 mg PO DAILY@0630 [facility] Last Admin: 04/23/24 05:38 Dose: 20 mg Documented By: SHAYNA Ondansetron HCl (Ondansetron Hcl 4 Mg/2 Ml Vial) 4 mg IVPUSH Q8H PRN PRN Reason: Nausea and Vomiting Ondansetron HCl (Ondansetron Odt 4 Mg Tab.Rapdis) 4 mg TRANSLINGU TIDWM [facility] Last Admin: 04/23/24 12:46 Dose: 4 mg Documented By: DEYA Senna (Sennosides 8.6 Mg Tablet) 8.6 mg PO DAILY [facility] Last Admin: 04/23/24 08:56 Dose: 8.6 mg Documented By: DEYA Sertraline HCl (Sertraline Hcl 100 Mg Tablet) 100 mg PO DAILY [facility] Last Admin: 04/23/24 08:55 Dose: 100 mg Documented By: DEYA Sodium Biphosphate/Sodium Phosphate (Sodium Phosphate,[place]-Dibasic 133 Ml Enema) 118 ml [place] DAILY PRN PRN Reason: Constipation Sodium Chloride (0.9 % Sodium Chloride Flush 3 Ml Syringe) 3 ml IVFLUSH QSHIFT [facility] Last Admin: 04/23/24 08:56 Dose: 3 ml Documented By: DEYA Vitamin D (Cholecalciferol (Vitamin D3) 25 Mcg Tablet) 25 mcg PO DAILY [facility] Last Admin: 04/23/24 08:56 Dose: 25 mcg Documented By: DEYA Labs 04/23/24 06:42 04/23/24 06:41 Labs: Laboratory Results - last 24 hr 04/22/24 04/22/24 04/22/24 13:22 15:07 15:37 MCV 84.6 MCH 26.2 L MCHC 31.0 RDW 18.1 H Plt Count 554 H D MPV 10.5 Immature Gran % (Auto) 0.6 H Neut % (Auto) 92.7 H Lymph % (Auto) 3.1 L [place] % (Auto) 3.4 Eos % (Auto) 0.0 Baso % (Auto) 0.2 Lymph # (Auto) 0.8 L [place] # (Auto) 0.8 Eos # (Auto) 0.0 Baso # (Auto) 0.1 Abs Immat Gran (auto) 0.14 H Absolute Neuts (auto) 22.8 H Absolute Nucleated RBC 0.000 Nucleated RBC % (auto) 0.0 Smear Tech's Comments VERIFIED Anion Gap Estim Creat Clear Calc Estimated GFR Random Glucose Lactic Acid 1.7 Calcium C-Reactive Protein 1.79 H Procalcitonin 0.15 Urine Color Yellow Urine Appearance Clear Urine pH 6.0 Ur Specific [place] 1.025 Urine Protein Trace Urine Glucose (UA) >=1000 H Urine Ketones Negative Urine Blood Negative Urine Nitrite Negative Ur Leukocyte Esterase Negative Urine RBC 0-2 Urine WBC 0-5 Ur Squamous Epith Cells 0-2 Urine Bacteria None Seen Hyaline Casts 0-2 Influenza Type A (PCR) Influenza Type B (PCR) RSV RNA Qual (PCR) SARS-CoV-2 RNA (RT-PCR) 04/22/24 04/22/24 04/23/24 15:38 16:45 06:41 MCV MCH MCHC RDW Plt Count MPV Immature Gran % (Auto) Neut % (Auto) Lymph % (Auto) [place] % (Auto) Eos % (Auto) Baso % (Auto) Lymph # (Auto) [place] # (Auto) Eos # (Auto) Baso # (Auto) Abs Immat Gran (auto) Absolute Neuts (auto) Absolute Nucleated RBC Nucleated RBC % (auto) Smear Tech's Comments Anion Gap 17 15 Estim Creat Clear Calc 27.1 35.0 Estimated GFR 33 44 Random Glucose 196 H 133 H Lactic Acid Calcium 10.7 H 9.9 D C-Reactive Protein Procalcitonin Urine Color Urine Appearance Urine pH Ur Specific Bruno Urine Protein Urine Glucose (UA) Urine Ketones Urine Blood Urine Nitrite Ur Leukocyte Esterase Urine RBC Urine WBC Ur Squamous Epith Cells Urine Bacteria Hyaline Casts Influenza Type A (PCR) NEGATIVE Influenza Type B (PCR) NEGATIVE RSV RNA Qual (PCR) NEGATIVE SARS-CoV-2 RNA (RT-PCR) NEGATIVE 04/23/24 06:42 MCV 85.3 MCH 26.1 L MCHC 30.6 L RDW 18.0 H Plt Count 513 H MPV 10.6 Immature Gran % (Auto) Neut % (Auto) Lymph % (Auto) [place] % (Auto) Eos % (Auto) Baso % (Auto) Lymph # (Auto) [place] # (Auto) Eos # (Auto) Baso # (Auto) Abs Immat Gran (auto) Absolute Neuts (auto) Absolute Nucleated RBC 0.000 Nucleated RBC % (auto) 0.0 Smear Tech's Comments Anion Gap Estim Creat Clear Calc Estimated GFR Random Glucose Lactic Acid Calcium C-Reactive Protein Procalcitonin Urine Color Urine Appearance Urine pH Ur Specific [place] Urine Protein Urine Glucose (UA) Urine Ketones Urine Blood Urine Nitrite Ur Leukocyte Esterase Urine RBC Urine WBC Ur Squamous Epith Cells Urine Bacteria Hyaline Casts Influenza Type A (PCR) Influenza Type B (PCR) RSV RNA Qual (PCR) SARS-CoV-2 RNA (RT-PCR) Assessment and Plan (1) Acute hyperkalemia: Status: Acute Plan d2 for 73yo F LTC resident of [facility] with pAF on apixaban, HLD, HTN, hx CVA, DM2, CKD3, vascular dementia sent in with hyperK + REINALDO/CKD3 acute hyperK - due to excess supplementation [had been hypokalemic persistenty last admission]; resolved after holding KCL + Entresto and given Lokelma and albuterol REINALDO/CKD3 - SCr improved after IV fluid hydration; continue to hold furosemide + Entresto; baseline SCr around 0.9 leukcotyosis - 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 Quality Stroke Does the patient have a stroke diagnosis?: No VTE Prior VTE?: No VTE Risk Level:: Medical - moderate - high VTE Device Contraindication: Treatment Not Indicated VTE Drug Contraindication: N/A - Med Ordered
[2024-04-23] MEDS: Mirtazapine 15 MG TABLET 7.5 MG PO (20:44)
[2024-04-23] MEDS: Atorvastatin Calcium 80 MG TABLET PO (20:44)
[2024-04-23] MEDS: Gabapentin 100 MG CAPSULE PO (20:44)
[2024-04-24 03:27] VITALS: BP 108/52; PULSE 67; RESP 16; TEMP 36.1; O2SAT 96
[2024-04-24] MEDS: 0.9 % Sodium Chloride Flush 3 ML SYRINGE IVFLUSH ×2 (03:39→15:35)
[2024-04-24] MEDS: Omeprazole 20 MG CAPSULE.DR PO (06:24)
[2024-04-24 07:12] LABS: Hematocrit 33.2 % (37.0-47.0); Hemoglobin 10.5 g/dl (12.0-16.0); Mean Corpuscular HGB Conc 31.6 g/dl (31.0-35.0); Mean Corpuscular Hemoglobin 26.3 pg (27.0-33.0); Mean Platelet Volume 11.9 fL (9.4-12.3); Platelet Count 417 X10*3/uL (160-400); Red Cell Distribution Width 17.8 % (11.0-16.0); White Blood Count 15.6 X10*3/uL (4.8-10.8)
[2024-04-24 07:43] LABS: Anion Gap 18 (12-20); Blood Urea Nitrogen 23 mg/dL (9-16); Calcium 9.7 mg/dL (8.4-10.2); Carbon Dioxide 19 mmol/L (22-29); Chloride 107 mmol/L (96-108); Creatinine Clr Calc Pharmacy 33.3; Estimated Glomerular Filt Rate 42; Glucose Random 94 mg/dL (60-115); Potassium 5.4 mmol/L (3.3-5.1); Sodium 139 mmol/L (135-145)
[2024-04-24 08:00] VITALS: BP 134/60; PULSE 70; RESP 20; TEMP 36.3; O2SAT 98
[2024-04-24] MEDS: Ondansetron ODT 4 MG TAB.RAPDIS TRANSLINGU ×3 (08:28→17:22)
[2024-04-24] MEDS: Cholecalciferol (Vitamin D3) 25 MCG TABLET PO (08:28)
[2024-04-24] MEDS: Sodium Zirconium Cyclosilicate 10 GM POWD.PACK PO (08:28)
[2024-04-24] MEDS: Folic Acid 1 MG TABLET PO (08:28)
[2024-04-24] MEDS: Sennosides 8.6 MG TABLET PO (08:28)
[2024-04-24] MEDS: Empagliflozin 10 MG TABLET PO (08:28)
[2024-04-24] MEDS: Furosemide 20 MG TABLET PO ×2 (08:28→17:22)
[2024-04-24] MEDS: Amiodarone HCL 200 MG TABLET PO ×2 (08:29→20:24)
[2024-04-24] MEDS: Apixaban 5 MG TABLET PO ×2 (08:29→20:22)
[2024-04-24] MEDS: Sertraline HCL 100 MG TABLET PO (08:29)
[2024-04-24] MEDS: Metoprolol Tartrate 50 MG TABLET PO ×2 (08:29→20:24)
[2024-04-24] MEDS: Ferrous Sulfate 324 MG TABLET.DR PO (08:29)
--- NOTE | 2024-04-24 10:33 | HO.PM.IMPN ---
Subjective Subjective Date of Service: 04/24/24 Interval History: denies chest pain or dyspnea history limited by dementia K 5.4 Review of Systems Review of Systems: Yes all other systems are reviewed and are negative Physical Exam Vital Signs: Vital Signs: Last Vital Signs Temp 97.4 F 04/24/24 08:00 Pulse 70 04/24/24 08:00 Resp 20 04/24/24 08:00 BP 134/60 04/24/24 08:00 Pulse Ox 98 04/24/24 08:00 O2 Del Method Room Air 04/24/24 08:00 BMI result Body Mass Index 21.5 Gen: in no acute distress HEENT: sclera anicteric, moist mucus membranes Neck: supple Lungs: clear to auscultation bilaterally Heart: regular rate and rhythm, no murmurs Abd: soft, non-tender, non-distended Ext: no edema Skin: warm/well-perfused Neuro: alert, no focal findings Psych: appropriate affect Objective Data Active Medications Acetaminophen (Acetaminophen 325 Mg Tablet) 650 mg PO Q6H PRN PRN Reason: Pain, Mild (Pain Scale 1-3), fever or headache Amiodarone HCl (Amiodarone Hcl 200 Mg Tablet) 200 mg PO BID [facility] Stop: 05/06/24 21:30 Last Admin: 04/24/24 08:29 Dose: 200 mg Documented By: DEYA Amiodarone HCl (Amiodarone Hcl 200 Mg Tablet) 200 mg PO DAILY [facility] Apixaban (Apixaban 5 Mg Tablet) 5 mg PO BID [facility] Last Admin: 04/24/24 08:29 Dose: 5 mg Documented By: DEYA Atorvastatin Calcium (Atorvastatin Calcium 80 Mg Tablet) 80 mg PO BEDTIME [facility] Last Admin: 04/23/24 20:44 Dose: 80 mg Documented By: ANITA Benzonatate (Benzonatate 100 Mg Capsule) 100 mg PO TID PRN PRN Reason: Cough Bisacodyl (Bisacodyl 10 Mg Supp.Rect) 10 mg [place] DAILY PRN PRN Reason: Constipation Calcium Carbonate (Calcium Carbonate 750 Mg Tab.Chew) 750 mg PO Q4H PRN PRN Reason: Heartburn Empagliflozin (Empagliflozin 10 Mg Tablet) 10 mg PO DAILY [facility] Last Admin: 04/24/24 08:28 Dose: 10 mg Documented By: DEYA Famotidine (Famotidine 20 Mg Tablet) 20 mg PO DAILY@1200 [facility] Last Admin: 04/23/24 12:46 Dose: 20 mg Documented By: DEYA Ferrous Sulfate (Ferrous Sulfate 324 Mg Tablet.) 324 mg PO DAILY [facility] Last Admin: 04/24/24 08:29 Dose: 324 mg Documented By: DEYA Folic Acid (Folic Acid 1 Mg Tablet) 1 mg PO DAILY [facility] Last Admin: 04/24/24 08:28 Dose: 1 mg Documented By: DEYA Furosemide (Furosemide 20 Mg Tablet) 20 mg PO BID@0900,1800 [facility]; Protocol Last Admin: 04/24/24 08:28 Dose: 20 mg Documented By: DEYA Gabapentin (Gabapentin 100 Mg Capsule) 100 mg PO BEDTIME [facility] Last Admin: 04/23/24 20:44 Dose: 100 mg Documented By: ANITA Magnesium Hydroxide (Milk Of Magnesia 30 Ml Oral.Susp) 30 ml PO DAILY PRN PRN Reason: Constipation Melatonin (Melatonin 3 Mg Tablet) 6 mg PO BEDTIME PRN PRN Reason: Insomnia Metoprolol Tartrate (Metoprolol Tartrate 50 Mg Tablet) 50 mg PO BID [facility]; Protocol Last Admin: 04/24/24 08:29 Dose: 50 mg Documented By: DEYA Mirtazapine (Mirtazapine 15 Mg Tablet) 7.5 mg PO BEDTIME [facility] Stop: 04/29/24 21:30 Last Admin: 04/23/24 20:44 Dose: 7.5 mg Documented By: ANITA Mirtazapine (Mirtazapine 15 Mg Tablet) 15 mg PO BEDTIME [facility] Omeprazole (Omeprazole 20 Mg Capsule.) 20 mg PO DAILY@0630 [facility] Last Admin: 04/24/24 06:24 Dose: 20 mg Documented By: SHAYNA Ondansetron HCl (Ondansetron Hcl 4 Mg/2 Ml Vial) 4 mg IVPUSH Q8H PRN PRN Reason: Nausea and Vomiting Ondansetron HCl (Ondansetron Odt 4 Mg Tab.Rapdis) 4 mg TRANSLINGU TIDWM [facility] Last Admin: 04/24/24 08:28 Dose: 4 mg Documented By: DEYA Senna (Sennosides 8.6 Mg Tablet) 8.6 mg PO DAILY [facility] Last Admin: 04/24/24 08:28 Dose: 8.6 mg Documented By: DEYA Sertraline HCl (Sertraline Hcl 100 Mg Tablet) 100 mg PO DAILY [facility] Last Admin: 04/24/24 08:29 Dose: 100 mg Documented By: DEYA Sodium Biphosphate/Sodium Phosphate (Sodium Phosphate,[place]-Dibasic 133 Ml Enema) 118 ml [place] DAILY PRN PRN Reason: Constipation Sodium Chloride (0.9 % Sodium Chloride Flush 3 Ml Syringe) 3 ml IVFLUSH QSHIFT [facility] Last Admin: 04/24/24 08:29 Dose: Not Given Documented By: DEYA Non-Admin Reason: No Access Vitamin D (Cholecalciferol (Vitamin D3) 25 Mcg Tablet) 25 mcg PO DAILY [facility] Last Admin: 04/24/24 08:28 Dose: 25 mcg Documented By: DEYA Labs 04/24/24 06:07 04/24/24 06:07 Labs: Laboratory Results - last 24 hr 04/24/24 06:07 MCV 83.0 MCH 26.3 L MCHC 31.6 RDW 17.8 H Plt Count 417 H MPV 11.9 Absolute Nucleated RBC 0.000 Nucleated RBC % (auto) 0.0 Anion Gap 18 Estim Creat Clear Calc 33.3 Estimated GFR 42 Random Glucose 94 Calcium 9.7 Microbiology Microbiology Results: Microbiology 04/22/24 15:38 Blood Culture - Preliminary Blood - Venous No growth after 24 hours. 04/22/24 15:38 Blood Culture - Preliminary Blood - Venous No growth after 24 hours. Assessment and Plan (1) Acute hyperkalemia: Status: Acute Plan d3 for 73yo F LTC resident of [facility] with pAF on apixaban, HLD, HTN, hx CVA, DM2, CKD3, vascular dementia sent in with hyperK + REINALDO/CKD3 acute hyperK - due to excess supplementation [had been hypokalemic persistenty last admission]; resolved after holding KCL + Entresto and given Lokelma and albuterol but today K 5.4 so will give another dose of Lokelma and recheck BMP in AM REINALDO/CKD3 - SCr improved after IV fluid hydration; continue to hold Entresto; will resume home furosemide and recheck BMP in AM leukocytosis - no source of infection identified and WBCs improving; continue to monitor pAF - continue amiodarone + metoprolol tartrate - continue apixaban chronic HFrEF - continue metoprolol tartrate; holding Entresto; resuming furosemide; continue empagliflozin DM2 - tyesha-dose lispro, empagliflozin dementia - continue mirtazapine, gabapentin VTE ppx - apixaban dispo - eventual return to LTC In my clinical judgment, the patient requires continued inpatient hospitalization for the following reasons: REINALDO, hyperK Total time managing care of this patient today: 35 minutes. Quality Stroke Does the patient have a stroke diagnosis?: No VTE Prior VTE?: No VTE Risk Level:: Medical - moderate - high VTE Device Contraindication: Treatment Not Indicated VTE Drug Contraindication: N/A - Med Ordered
[2024-04-24 12:00] VITALS: BP 128/59; PULSE 77; RESP 20; TEMP 36.1; O2SAT 94
[2024-04-24] MEDS: Famotidine 20 MG TABLET PO (12:07)
[2024-04-24 15:45] VITALS: BP 119/56; PULSE 71; RESP 18; TEMP 36.2; O2SAT 97
[2024-04-24 20:00] VITALS: BP 104/54; PULSE 86; RESP 18; TEMP 36.3; O2SAT 95
[2024-04-24] MEDS: Atorvastatin Calcium 80 MG TABLET PO (20:22)
[2024-04-24] MEDS: Gabapentin 100 MG CAPSULE PO (20:22)
[2024-04-24] MEDS: Mirtazapine 15 MG TABLET 7.5 MG PO (20:22)
[2024-04-24 23:43] VITALS: BP 115/46; PULSE 64; RESP 14; TEMP 36.2; O2SAT 96
[2024-04-25] VITALS (8 sets, daily range): BP systolic 112–141; BP diastolic 50–61; PULSE 63–75; RESP 14–18; TEMP 36–36.7; O2SAT 95–100
[2024-04-25] MEDS: Omeprazole 20 MG CAPSULE.DR PO (06:13)
[2024-04-25 06:36] LABS: Hematocrit 32.4 % (37.0-47.0); Hemoglobin 9.8 g/dl (12.0-16.0); Mean Corpuscular HGB Conc 30.2 g/dl (31.0-35.0); Mean Corpuscular Hemoglobin 25.7 pg (27.0-33.0); Mean Corpuscular Volume 84.8 fL (80.0-98.0); Mean Platelet Volume 11.1 fL (9.4-12.3); Platelet Count 448 X10*3/uL (160-400); Red Blood Count 3.82 X10*6/uL (4.20-5.50); Red Cell Distribution Width 17.5 % (11.0-16.0); White Blood Count 10.4 X10*3/uL (4.8-10.8)
[2024-04-25 07:08] LABS: Blood Urea Nitrogen 18 mg/dL (9-16); Calcium 9.1 mg/dL (8.4-10.2); Creatinine Clr Calc Pharmacy 32.3; Estimated Glomerular Filt Rate 40; Glucose Random 99 mg/dL (60-115)
[2024-04-25 07:24] LABS: Anion Gap 14 (12-20); Carbon Dioxide 27 mmol/L (22-29); Chloride 99 mmol/L (96-108); Potassium 3.2 mmol/L (3.3-5.1); Sodium 137 mmol/L (135-145)
[2024-04-25] MEDS: Ferrous Sulfate 324 MG TABLET.DR PO (08:56)
[2024-04-25] MEDS: Amiodarone HCL 200 MG TABLET PO ×2 (08:56→20:08)
[2024-04-25] MEDS: Metoprolol Tartrate 50 MG TABLET PO ×2 (08:56→20:09)
[2024-04-25] MEDS: Cholecalciferol (Vitamin D3) 25 MCG TABLET PO (08:56)
[2024-04-25] MEDS: Apixaban 5 MG TABLET PO ×2 (08:56→20:08)
[2024-04-25] MEDS: Folic Acid 1 MG TABLET PO (08:56)
[2024-04-25] MEDS: Empagliflozin 10 MG TABLET PO (08:56)
[2024-04-25] MEDS: Ondansetron ODT 4 MG TAB.RAPDIS TRANSLINGU ×3 (08:57→17:23)
[2024-04-25] MEDS: Furosemide 20 MG TABLET PO (08:57)
[2024-04-25] MEDS: Sennosides 8.6 MG TABLET PO (08:57)
[2024-04-25] MEDS: Sertraline HCL 100 MG TABLET PO (08:57)
--- NOTE | 2024-04-25 10:20 | MHC.CM.PN ---
Per ROUNDS discussion, Patient is not yet medically cleared for dc (working on electrolytes); returning to LTC is the goal and CM will continue to follow.
--- NOTE | 2024-04-25 13:19 | P.PNIM_ITS ---
Subjective Subjective Date of Service: 04/25/24 Interval History: Being followed for elevated potassium. Offers no acute complaints, denies shortness of breath, no chest pain . Review of Systems All other system reviewed and are negative. Physical Exam 2 Vital Signs: Vital Signs: Last Vital Signs Temp 97.6 F 04/25/24 12:00 Pulse 71 04/25/24 12:00 Resp 16 04/25/24 12:00 BP 138/61 04/25/24 12:00 Pulse Ox 96 04/25/24 12:00 O2 Del Method Room Air 04/25/24 12:00 BMI result Body Mass Index 21.5 Const: Other: Gen: in no acute distress HEENT: sclera anicteric, moist mucus membranes Neck: supple Lungs: clear to auscultation bilaterally Heart: regular rate and rhythm, no murmurs Abd: soft, non-tender, non-distended Ext: no edema Skin: warm/well-perfused, dry skin both legs Neuro: alert, no focal findings Psych: appropriate affect Objective Data Active Medications Acetaminophen (Acetaminophen 325 Mg Tablet) 650 mg PO Q6H PRN PRN Reason: Pain, Mild (Pain Scale 1-3), fever or headache Amiodarone HCl (Amiodarone Hcl 200 Mg Tablet) 200 mg PO BID [facility] Stop: 05/06/24 21:30 Last Admin: 04/25/24 08:56 Dose: 200 mg Documented By: SHAWN Amiodarone HCl (Amiodarone Hcl 200 Mg Tablet) 200 mg PO DAILY [facility] Apixaban (Apixaban 5 Mg Tablet) 5 mg PO BID [facility] Last Admin: 04/25/24 08:56 Dose: 5 mg Documented By: SHAWN Atorvastatin Calcium (Atorvastatin Calcium 80 Mg Tablet) 80 mg PO BEDTIME [facility] Last Admin: 04/24/24 20:22 Dose: 80 mg Documented By: RAMIN Benzonatate (Benzonatate 100 Mg Capsule) 100 mg PO TID PRN PRN Reason: Cough Bisacodyl (Bisacodyl 10 Mg Supp.Rect) 10 mg [place] DAILY PRN PRN Reason: Constipation Calcium Carbonate (Calcium Carbonate 750 Mg Tab.Chew) 750 mg PO Q4H PRN PRN Reason: Heartburn Empagliflozin (Empagliflozin 10 Mg Tablet) 10 mg PO DAILY [facility] Last Admin: 04/25/24 08:56 Dose: 10 mg Documented By: SHAWN Famotidine (Famotidine 20 Mg Tablet) 20 mg PO DAILY@1200 [facility] Last Admin: 04/24/24 12:07 Dose: 20 mg Documented By: DEYA Ferrous Sulfate (Ferrous Sulfate 324 Mg Tablet.) 324 mg PO DAILY [facility] Last Admin: 04/25/24 08:56 Dose: 324 mg Documented By: SHAWN Folic Acid (Folic Acid 1 Mg Tablet) 1 mg PO DAILY [facility] Last Admin: 04/25/24 08:56 Dose: 1 mg Documented By: SHAWN Furosemide (Furosemide 20 Mg Tablet) 20 mg PO DAILY [facility]; Protocol Gabapentin (Gabapentin 100 Mg Capsule) 100 mg PO BEDTIME [facility] Last Admin: 04/24/24 20:22 Dose: 100 mg Documented By: RAMIN Magnesium Hydroxide (Milk Of Magnesia 30 Ml Oral.Susp) 30 ml PO DAILY PRN PRN Reason: Constipation Melatonin (Melatonin 3 Mg Tablet) 6 mg PO BEDTIME PRN PRN Reason: Insomnia Metoprolol Tartrate (Metoprolol Tartrate 50 Mg Tablet) 50 mg PO BID [facility]; Protocol Last Admin: 04/25/24 08:56 Dose: 50 mg Documented By: SHAWN Mirtazapine (Mirtazapine 15 Mg Tablet) 7.5 mg PO BEDTIME [facility] Stop: 04/29/24 21:30 Last Admin: 04/24/24 20:22 Dose: 7.5 mg Documented By: RAMIN Mirtazapine (Mirtazapine 15 Mg Tablet) 15 mg PO BEDTIME [facility] Omeprazole (Omeprazole 20 Mg Capsule.) 20 mg PO DAILY@0630 [facility] Last Admin: 04/25/24 06:13 Dose: 20 mg Documented By: RAMIN Ondansetron HCl (Ondansetron Hcl 4 Mg/2 Ml Vial) 4 mg IVPUSH Q8H PRN PRN Reason: Nausea and Vomiting Ondansetron HCl (Ondansetron Odt 4 Mg Tab.Rapdis) 4 mg TRANSLINGU TIDWM [facility] Last Admin: 04/25/24 08:57 Dose: 4 mg Documented By: SHAWN Sacubitril/Valsartan (Sacubitril/Valsartan 1 Tab Tablet) 1 tab PO BID [facility]; Protocol Senna (Sennosides 8.6 Mg Tablet) 8.6 mg PO DAILY [facility] Last Admin: 04/25/24 08:57 Dose: 8.6 mg Documented By: SHAWN Sertraline HCl (Sertraline Hcl 100 Mg Tablet) 100 mg PO DAILY [facility] Last Admin: 04/25/24 08:57 Dose: 100 mg Documented By: SHAWN Sodium Biphosphate/Sodium Phosphate (Sodium Phosphate,[place]-Dibasic 133 Ml Enema) 118 ml [place] DAILY PRN PRN Reason: Constipation Sodium Chloride (0.9 % Sodium Chloride Flush 3 Ml Syringe) 3 ml IVFLUSH QSHIFT [facility] Last Admin: 04/25/24 09:08 Dose: Not Given Documented By: SHAWN Non-Admin Reason: Previously Administered Vitamin D (Cholecalciferol (Vitamin D3) 25 Mcg Tablet) 25 mcg PO DAILY [facility] Last Admin: 04/25/24 08:56 Dose: 25 mcg Documented By: SHAWN Labs 04/25/24 05:40 04/25/24 05:41 Labs: Laboratory Results - last 24 hr 04/25/24 04/25/24 05:40 05:41 MCV 84.8 MCH 25.7 L MCHC 30.2 L RDW 17.5 H Plt Count 448 H MPV 11.1 Absolute Nucleated RBC 0.000 Nucleated RBC % (auto) 0.0 Anion Gap 14 Estim Creat Clear Calc 32.3 Estimated GFR 40 Random Glucose 99 Calcium 9.1 D Microbiology Microbiology Results: Microbiology 04/22/24 15:38 Blood Culture - Preliminary Blood - Venous No growth after 48 hours. 04/22/24 15:38 Blood Culture - Preliminary Blood - Venous No growth after 48 hours. Assessment and Plan (1) Acute kidney injury: Status: Acute (2) Acute hyperkalemia: Status: Acute Plan 73yo F with pAF on apixaban, HLD, HTN, hx CVA, DM2, CKD3, vascular dementia sent in with hyperK + REINALDO/CKD3 acute hyperK - due to excess supplementation [had been hypokalemic persistenty last admission]; resolved after holding KCL + Entresto and given Lokelma and albuterol BMP 3.2 this morning likely due to Lasix and receiving Lokelma Will replete and follow labs REINALDO/CKD3 - SCr improved after IV fluid hydration; will resume low-dose Entresto and Lasix 20 mg follow BMP closely leukocytosis - no source of infection identified and WBCs improving; continue to monitor pAF - continue amiodarone + metoprolol tartrate, on prolong loading dose of amiodarone will discuss with Cardiology. - continue apixaban chronic HFrEF - continue metoprolol tartrate; resuming low-dose Entresto and furosemide 20 mg daily; continue empagliflozin, Cardiology consult DM2 - stable blood sugar, tyesha-dose lispro, empagliflozin dementia - continue mirtazapine, gabapentin VTE ppx - apixaban dispo - to LTC In my clinical judgment, the patient requires continued inpatient hospitalization for the following reasons: Adjusting cardiac medications at follow-up on electrolytes, expert consultation . Quality Stroke Does the patient have a stroke diagnosis?: No VTE Prior VTE?: No VTE Risk Level:: Medical - moderate - high VTE Device Contraindication: Treatment Not Indicated VTE Drug Contraindication: N/A - Med Ordered
[2024-04-25] MEDS: Famotidine 20 MG TABLET PO (13:41)
[2024-04-25] MEDS: 0.9 % Sodium Chloride Flush 3 ML SYRINGE IVFLUSH ×3 (17:23→20:12)
[2024-04-25] MEDS: Gabapentin 100 MG CAPSULE PO (20:08)
[2024-04-25] MEDS: Atorvastatin Calcium 80 MG TABLET PO (20:08)
[2024-04-25] MEDS: Sacubitril/Valsartan 24/26 1 TAB TABLET PO (20:08)
[2024-04-25] MEDS: Mirtazapine 15 MG TABLET 7.5 MG PO (20:09)
[2024-04-26 04:00] VITALS: BP 138/56; PULSE 78; RESP 16; TEMP 36.7; O2SAT 95
[2024-04-26 07:07] VITALS: BP 139/61; PULSE 72; RESP 17; TEMP 36.3; O2SAT 98
[2024-04-26 08:22] LABS: Anion Gap 15 (12-20); Blood Urea Nitrogen 18 mg/dL (9-16); Calcium 9.2 mg/dL (8.4-10.2); Carbon Dioxide 24 mmol/L (22-29); Chloride 102 mmol/L (96-108); Creatinine Clr Calc Pharmacy 34.7; Estimated Glomerular Filt Rate 44; Glucose Random 108 mg/dL (60-115); Potassium 3.1 mmol/L (3.3-5.1); Sodium 138 mmol/L (135-145)
[2024-04-26] MEDS: Sennosides 8.6 MG TABLET PO (08:48)
[2024-04-26] MEDS: Empagliflozin 10 MG TABLET PO (08:48)
[2024-04-26] MEDS: Sacubitril/Valsartan 24/26 1 TAB TABLET PO (08:48)
[2024-04-26] MEDS: Cholecalciferol (Vitamin D3) 25 MCG TABLET PO (08:48)
[2024-04-26] MEDS: Folic Acid 1 MG TABLET PO (08:49)
[2024-04-26] MEDS: Ondansetron ODT 4 MG TAB.RAPDIS TRANSLINGU ×2 (08:49→11:58)
[2024-04-26] MEDS: Metoprolol Tartrate 50 MG TABLET PO (08:49)
[2024-04-26] MEDS: Furosemide 20 MG TABLET PO (08:49)
[2024-04-26] MEDS: 0.9 % Sodium Chloride Flush 3 ML SYRINGE IVFLUSH (08:49)
[2024-04-26] MEDS: Ferrous Sulfate 324 MG TABLET.DR PO (08:49)
[2024-04-26] MEDS: Apixaban 5 MG TABLET PO (08:49)
[2024-04-26] MEDS: Sertraline HCL 100 MG TABLET PO (08:49)
[2024-04-26] MEDS: Amiodarone HCL 200 MG TABLET PO (08:49)
--- NOTE | 2024-04-26 10:34 | MHC.CM.PN ---
Per ROUNDS discussion, Patient is medically cleared for dc to return to LTC today. Patient will return to LTC @ [facility] today at 4:30PM, via [facility]. CM spoke with Guardian/Jair @ [phone], addressed IMM with him and informed him of the dc plan.
--- NOTE | 2024-04-26 10:36 | P.DS_ITS ---
DS: Providers Provider Date of Service: 04/26/24 Date of admission: 04/22/24 17:13 Date of discharge: 04/26/24 Primary care physician: Damien Kay MD DS: Diagnosis Discharge Diagnosis (1) Acute kidney injury: Status: Acute (2) Acute hyperkalemia: Status: Acute DS: Summary Hospital Course Hospital Course: History of presenting illness: Date of Service: 04/22/24 Attending physician on admission: Beatrice Shultz Chief Complaint: Abnormal labs Pt is a 73-year-old female with a PMH significant for?paroxysmal AFib on Eliquis, HLD, HTN, hx of CVA with residual hemiplegia, nkm-nfckyqb-tiyvfzwua type 2 diabetes, CKD3, and vascular dementia who presents to the ED from [facility]?for evaluation of potassium of 6.7 from routine labs drawn at the facility. Patient is alert and oriented to self only. Patient states that she is cold and would like another blanket, but otherwise has no acute medical complaints. Denies chest pain/pressure, palpitations. No shortness a breath or difficulty breathing. Denies any musculoskeletal pain. No fever, nausea, vomiting, or abdominal pain. Review of records indicates patient was also experiencing vomiting, poor p.o. intake, and weight loss over the past month at SNF. In the ED pt was hypertensive up to 203/68, vitals otherwise stable and WNL. Labs were significant for leukocytosis 24.6, potassium 7.0 with repeat 6.0 after Lokelma and fluids, BUN 33, creatinine 1.65 (elevated from 0.92 on 04/08), and AST 47. UA negative for UTI. CXR . Pending CT of abdomen/pelvis pending. EKG demonstrated normal sinus rhythm without significant ischemic changes or tall peaked T-waves. Pt was treated with IVF and Lokelma. Pt will be admitted to the hospital for treatment and further evaluation of hyperkalemia in the setting of REINALDO on CKD 3. Hospital course: 73yo F with pAF on apixaban, HLD, HTN, hx CVA, DM2, CKD3, vascular dementia noted to hyperkalemia and acute on chronic kidney disease stage 3 on routine lab draws and admitted to [facility] for further eval and treatment. Acute hyperkalemia likely due to excess potassium supplementation and being on Entresto, patient treated with IV fluid and Lokelma, Entresto was held, potassium normalized, and later noted to have low potassium with diuresis therefore treated with potassium supplements , recent potassium 4.2 recommend to check potassium in 2 days, potassium supplement discontinued. REINALDO/CKD3 serum creatinine normalized with IV hydration patient placed back on low-dose Entresto and Lasix 20 mg recommend to follow BMP in 2 days leukocytosis- no source of infection identified and WBCs normalized. Paroxysmal atrial fibrillation - continue amiodarone + metoprolol tartrate, and continue apixaban chronic HFrEF - continue metoprolol tartrate,low-dose Entresto and furosemide 20 mg daily; continue empagliflozin, follow BMP in next 2 days and Q weekly DM2 - stable blood sugar, continue metformin and empagliflozin. dementia - continue mirtazapine, and gabapentin. Time Attestation Discharge Coordination Time (in mins): 40 Quality: Safe Use of Opioids Does Pt have an Active Cancer Diagnosis on the Problem List?: No Quality: Stroke Does the patient have a stroke diagnosis?: No Physical Exam Vital Signs: Vital Signs: Last Vital Signs Temp 97.3 F 04/26/24 07:07 Pulse 72 04/26/24 07:07 Resp 17 04/26/24 07:07 BP 139/61 04/26/24 07:07 Pulse Ox 98 04/26/24 07:07 O2 Del Method Room Air 04/26/24 07:07 BMI result Body Mass Index 21.5 Const: Other: Gen: in no acute distress HEENT: sclera anicteric, moist mucus membranes Neck: supple Lungs: clear to auscultation bilaterally Heart: regular rate and rhythm, no murmurs Abd: soft, non-tender, non-distended Ext: no edema Skin: warm/well-perfused, dry skin both legs Neuro: alert, no focal findings Psych: appropriate affect DS: Data Data Completed and Pending Completed studies during hospitalization [Text1]: Procedures Transfusion of Nonautologous Red Blood Cells into Peripheral Vein, Percutaneous Approach (03/26/24) Labs on day of discharge: Laboratory Results - last 24 hr 04/26/24 07:26 Sodium 138 Potassium 3.1 L Chloride 102 Carbon Dioxide 24 Anion Gap 15 BUN 18 H Creatinine 1.21 Estim Creat Clear Calc 34.7 Estimated GFR 44 Random Glucose 108 Calcium 9.2 Preliminary micro results at discharge 04/22/24 15:38 Blood Culture - Preliminary Blood - Venous No growth after 48 hours. 04/22/24 15:38 Blood Culture - Preliminary Blood - Venous No growth after 48 hours. Discharge Plan Discharge Anticipated Discharge Date/Time: 04/26/24 10:35 Patient Disposition: Xfer SNF Discharge Diagnosis: Acute kidney injury Acute hyperkalemia Referrals: [facility] [Outside] - 1 Week Damien Kay MD [Primary Care Provider] - 1 Week Discharge Medications: New sacubitril-valsartan [Entresto] 24-26 mg Tablet 1 tab PO BID Qty: 60 0RF Protocol: Hold for SBP< HOLD for SBP < : 90 Continued metformin 500 mg tablet 500 mg PO BID atorvastatin 80 mg tablet 80 mg PO BEDTIME sennosides [senna] 8.6 mg Tablet 8.6 mg PO DAILY loperamide 2 mg capsule 2 mg PO Q6H PRN (Reason: Loose Stool) bisacodyl 10 mg Suppository 10 mg WA DAILY PRN (Reason: Constipation) ferrous sulfate 325 mg (65 mg iron) Tablet 325 mg PO DAILY esomeprazole magnesium 40 mg capsule,delayed release(DR/EC) 40 mg PO DAILY@0630 Fleet Enema 19-7 gram/118 mL Enema 118 ml WA DAILY PRN (Reason: Constipation) folic acid 1 mg Tablet 1 mg PO DAILY gabapentin 100 mg capsule 100 mg PO BEDTIME clotrimazole 1 % Cream 1 appl TOPICAL DAILY PRN (Reason: Rash) Rx Instructions: apply to groin sertraline 50 mg tablet 100 mg PO DAILY cholecalciferol (vitamin D3) 25 mcg (1,000 unit) Tablet 25 mcg PO DAILY melatonin 5 mg Tablet 10 mg PO BEDTIME omega 7-rlp-wbt-fish oil [Fish Oil] 1,000 mg (120 mg-180 mg) Capsule 1 cap PO DAILY Eliquis 5 mg tablet 5 mg PO BID amiodarone 200 mg Tablet See Rx Instructions .ROUTE .COMPLEX Qty: 56 0RF Rx Instructions: 200 mg twice daily for 28 days till 05/06/24, then 200 mg once daily starting 05/07/24 metoprolol tartrate 50 mg Tablet 50 mg PO BID Qty: 60 0RF Protocol: Hold for SBP/HR < HOLD for SBP < : 90 HOLD for HR < : 60 Jardiance 10 mg Tablet 10 mg PO DAILY Qty: 30 0RF acetaminophen 325 mg Tablet 650 mg PO Q6H PRN (Reason: Fever Or Pain) ondansetron HCl 4 mg Tablet 4 mg PO TIDWM famotidine [Pepcid] 20 mg Tablet 20 mg PO DAILY@1200 mirtazapine [Remeron] 15 mg Tablet See Rx Instructions .ROUTE .COMPLEX Rx Instructions: Give 7.5 mg at bedtime for 7 days (until 04/29/24), Then give 15 mg at bedtime start 04/30/24 Changed furosemide 20 mg Tablet 20 mg PO DAILY Qty: 60 0RF Protocol: Hold for SBP< HOLD for SBP < : 90 Discontinued sacubitril-valsartan [Entresto] 49-51 mg Tablet 1 tab PO BID Qty: 60 0RF Protocol: Hold for SBP< HOLD for SBP < : 90 potassium chloride 20 mEq Packet 20 meq PO BID Qty: 60 0RF Discharge Orders: Discharge Order (Routine); Ordered 04/26/24 Ordered By: Anai Chance Diet: Diabetic diet Activity on Discharge: As tolerated Stand Alone Forms: Patient Portal Discharge page Print Language: Thai Care Plan Goals: Acute hyperkalemia resolved follow BMP in 2 days BMP in 2 days Health Concerns: CHF stable Continue all medications as prescribed Plan of Treatment: Outpatient follow-up with primary care physician and Cardiology call for appointment Assessment: As above
[2024-04-26] MEDS: Potassium Chloride ER 20 MEQ TAB.ER.PRT 40 MEQ PO (10:47)
[2024-04-26 11:18] VITALS: BP 104/74; PULSE 62; RESP 17; TEMP 36.3; O2SAT 99
[2024-04-26] MEDS: Famotidine 20 MG TABLET PO (11:58)
[2024-04-26 15:10] VITALS: BP 134/61; PULSE 73; RESP 17; TEMP 36.3; O2SAT 94
[2024-04-26 16:01] LABS: Potassium 4.2 mmol/L (3.3-5.1)
--- OUTSIDE RECORDS SUMMARY | 2024-04-27 09:40 | XMS_ITS | Continuity of Care Document ---
Author Organization [facility] Address [address] [place] [address] Care Team Providers Care Pharmacy Specialist Name Role Phone [facility] OTHER Assessment No assessment recorded. Plan of Treatment Reminders Order Date Submit Date Provider Last Modified By Organization Details Last Modified Time Details Appointments None record ed. Lab None record ed. Referral None record ed. Procedures None record ed. Surgeries None record ed. Imaging None record ed. Medication Orders None record ed. Patient TargetsNo targets recorded. Patient InstructionsNo instructions recorded. Reason for Referral None Reported. Problems Name Problem SNOMED Code Status Onset Date Resolution Date Notes Provider Name and Address Organization Details Recorded Time Vascular dementia 753857606 Active 2019 VIELKA JIMÉNEZ [address], [address], [place], [address], [facility] [employer] 0 11:42:15 Diabetes mellitus 35140009 Active 2019 VIELKA JIMÉNEZ [address], [address], [place], [address], [facility] [employer] 0 11:42:37 Atrial fibrillation 62241978 Active 2019 VIELKA JIMÉNEZ [address], [address], [place], [address], [facility] [employer] 0 11:43:55 Recurrent falls 959951024 Active 2019 VIELKA JIMÉNEZ [address], [address], [place], [address], [facility] [employer] 0 11:44:10 Diastolic heart failure 229743320 Active 2019 VIELKA JIMÉNEZ [address], [address], [place], [address], [facility] 0 11:44:39 Hyperlipidemia 10013516 Active 2019 VIELKA JIMÉNEZ [address], [address], [place], [address], [facility] 0 11:45:05 Essential hypertension 76362820 Active 2019 VIELKA JIMÉNEZ [address], [address], [place], [address], [facility] 0 11:45:23 History of cerebrovascula r accident 998072999 Active 2019 VIELKA JIMÉNEZ [address], [address], [place], [address], [facility] 0 12:00:03 Insomnia 606241751 Active 2019 VIELKA JIMÉNEZ [address], [address], [place], [address], [facility] 0 12:06:58 Anxiety 35108455 Active 2019 VIELKA JIMÉNEZ [address], [address], [place], [address], [facility] 0 12:07:06 Chronic back pain 061879920 Active 2019 VIELKA JIMÉNEZ [address], [address], [place], [address], [facility] 0 12:18:41 Retention of urine 655295906 Active 2019 VIELKA JIMÉNEZ [address], [address], [place], [address], [facility] 0 12:48:03 Hyperaldostero nism 76181930 Active 2019 ALFREDO WATERSJEAN PAULVIELKA IBRAHIM [address], [address], [place], [address], [facility] 0 13:01:27 Acute depression 949180350 Active 2019 ALFREDO VLADISLAVVIELKA [address], [address], [place], [address], [facility] 0 08:47:18 Vitamin D deficiency 85207931 Active 2020 [facility]O [facility] [address] [facility], [address], [place], [address], [facility] [email or web address] [facility] 1 17:14:42 Gastroesophage al reflux disease without esophagitis 120192362 Active 2020 [facility]O [facility] [address] [facility], [address], [place], [address], [facility] 1 17:18:13 Hypokalemia 26250705 Active 2021 Pam Ruiz MD [address] [place] [address], [address], [place], [address], [facility] 2 16:55:42 Vertigo 870263019 Active 2021 ALRFEDO [facility] [address] [facility], [address], [place], [address], [facility] 2 12:48:50 Anemia 962491597 Active 2022 ANDREA ENGEL NP [address] [place] [address], [facility] [address], [place], [address], [facility] 3 11:25:41 Mixed anxiety and depressive disorder 076364177 Active 2023 ANDREA ENGEL NP [address] [place] [address], [facility] [address], [place], [address], [facility] 4 10:11:52 Problem Notes None recorded. Medical Equipment None Reported. Allergies Allergen ID Allergen Name Allergen Category Reaction Reaction Severity Criticality Documentation Date Start Date Code Code System Note Provider Name and Address Organization Details Recorded Time 96575 aspirin medicatio n Not available Not available Not available 08/05/2019 1191 RxNorm GI upset GERDA LACEY PA-C [address] [facility], [address], [place], [address], [facility] 3 16:28:56 38251 purified protein derivativ e of tuberculi n medicatio n Not available Not available Not available 08/05/2019 8948 RxNorm ALFREDO VLADISLAV, [facility] [address] [facility], [address], [place], [address], [facility] 0 11:39:31 Medications Name Sig Start Date Stop Date Status Note LastModified by Organization Details LastModified Time tramadol 50 mg tablet 1/2 (25 mg) po q 8 h prn mod-sev ere pain 023 active Not Available Not Available Not Avai lable Vitals Date Recorded Body height Heart rate Respiratory rate Body temperature Oxygen saturation Oxygen saturation in Arterial blood by Pulse oximetry Systolic blood pressure Diastolic blood pressure Provider Name and Address Organization Details Last Updated DateTime 4 165.1 cm 72 /min 18 /min 97.9 [degF] 96 % 96 % 135 mm[Hg] 63 mm[Hg] Loni Love NP [address] [facility], [address], [place], [address], [facility] 4 10:27:09 Social History Question Answer Notes LastModified by Organizat ion Details LastModified Time Tobacco Smoking Status Former Smoker smoked 1 ppd Pam Ruiz MD [address] [facility], [address], [place], [address], [employer] 10/03/2021 16:20:40 Do You Have An Advance Directive? Yes Full Code-use Dialysis, Nutrition And Hydration Short Term - Appears To Have Been Completed Prior To Assignment Of Guardian. [email or web address] Information not available 07/14/2022 What Is Your Level Of Alcohol Consumption? None [id number] Information not available 03/13/2020 How Much Tobacco Do You Chew? None [id number] Information not available 03/13/2020 What Is Your Code Status? Full Code Information not available 10/03/2021 Do You Or Have You Ever Used E-cigarettes Or Vape? Never Used Electronic Cigarettes [id number] Information not available 03/13/2020 Where Do You Live? Other LTC At [facility] Information not available 10/03/2021 Legal Guardian? Yes Decree Uploaded In PCC; Does Not Authorize Revocation Of HCP. Information not available 10/03/2021 Do You Have A Medical Power Of Global Climate Change Researcher? Yes There Is A HCP Uploaded In [facility] But It Is Labeled As Invalid; There Is A HCP Invocation Uploaded In [facility] [email or web address] Information not available 07/14/2022 What Was The Date Of Your Most Recent Tobacco Screening? 09/24/2023 Information not available 09/24/2023 Do You Have An Out Of Hospital DNR? No Information not available 10/03/2021 What Is Your Relationship Status? Information not available 10/03/2021 Do You Or Have You Ever Used Smokeless Tobacco? Never Used Smokeless Tobacco [id number] Information not available 03/13/2020 How Much Tobacco Do You Smoke? No Information not available 10/03/2021 Do You Use Any Illicit Or Recreational Drugs? No Information not available 10/03/2021 Has Tobacco Cessation Counseling Been Provided? No N/A [email or web address] Information not available 07/14/2022 How Many Years Have You Smoked Tobacco? 20 [id number] Information not available 03/13/2020 Do You Or Have You Ever Used Any Other Forms Of Tobacco Or Nicotine? No Information not available 10/03/2021 Sex: Unknown Functional Status None recorded. Mental Status None recorded. Family History Nothing Reported Notes:N/C Medical History No medical history recorded. Gynecological HistoryNo gynecological history recorded. Obstetrics History GPAL:G 0 P 0 0 0 0 Immunizations Vaccine Type Date Status Note Provider Nam e and Address Organization Details Recorded Time Influenza, high-dose, quadrivalent, PF 1 completed Conchita Roy null, [facility] 04/23/2021 11:48:58 Influenza, split virus, quadrivalent, preservative 2 completed Mally Rivera [facility], [facility] 03/12/2022 13:21:44 COVID-19, mRNA, LNP-S, bivalent, PF, 30 mcg/0.3 mL dose 2 completed GERDA LACEY PA-C [address] [place] [address], [address], [place], [address], [facility] 05/22/2022 10:21:46 pneumococcal polysaccharide PPV23 2 completed GERDA LACEY PA-C [address] [facility], [address], [place], [address], [facility] 07/14/2022 16:07:16 COVID-19, mRNA, LNP-S, bivalent, PF, 30 mcg/0.3 mL dose 3 completed Yola Alejandro null, [facility] 07/06/2023 11:54:06 Influenza, split virus, quadrivalent, preservative 0 completed Conchita Roy null, [facility] 02/29/2020 10:48:11 COVID-19, mRNA, LNP-S, PF, 30 mcg/0.3 mL dose 1 completed VIELKA JIMÉNEZ [address] [place] [address], [address], [place], [address], [facility] 07/17/2020 18:20:26 COVID-19, mRNA, LNP-S, PF, 30 mcg/0.3 mL dose 1 completed VIELKA JIMÉNEZ [address] [place] [address], [address], [place], [address], [facility] 07/17/2020 18:20:39 Pneumococcal conjugate PCV 13 6 completed VIELKA JIMÉNEZ [address] [place] [address], [address], [place], [address], [facility] 08/21/2020 18:18:49 pneumococcal polysaccharide PPV23 1 completed VIELKA JIMÉNEZ [address] [place] [address], [address], [place], [address], [facility] 08/21/2020 18:19:12 tetanus toxoid, unspecified formulation 6 completed VIELKA JIMÉNEZ [address] [place] [address], [address], [place], [address], [facility] 08/21/2020 18:19:31 Past Encounters Encounter ID Performer Location Encounter Start Date Encounter Closed Date Diagnosis/Indication Diagnosis SNOMED-CT Code Diagnosis ICD10 Code [id number] Loni Love NP [address] [address] 04/11/2024 08:09:34 04/13/2024 08:48:14 Mixed anxiety and depressive disorder 396027284 F41.8 Vascular dementia 924412 004 F01.B0 Essential hypertension 41731836 I10 Diabetes mellitus 782953 09 E11.9 Atrial fibrillation 4943 6004 I48.19 Diastolic heart failure 706401248 I50.32 Chronic pain 11437026 G8 9.29 Gastroesop hageal reflux disease without esophagitis 922231348 K21.9 Anemia 107135351 D64.9 History of cerebrovascular accident 926268411 Z86.73 Pneumonia 843659368 J18. 9 Hypoxia 544213031 R09.02 [id number] Loni Love NP [facility] [address] [address] 04/18/2024 15:33:11 04/19/2024 09:45:16 Anemia 553945668 D64.9 Diastolic heart failure 710681372 I50.32 Atrial fibrillation 4943 6004 I48.19 Vascular dementia 022794 004 F01.B0 Essential hypertension 33052125 I10 Diabetes mellitus 472716 09 E11.9 Chronic pain 24587262 G8 9.29 Gastroesop hageal reflux disease without esophagitis 009386166 K21.9 Mixed anxi ety and depressive disorder 746968731 F41.8 History of cerebrovascular accident 088427398 Z86.73 Intertrigo 37145870 L30. 4 Bilateral heel pain 1563 377441 1056562 M79.672 [id number] Loni Love NP [facility] [address] [address] 04/21/2024 10:25:22 04/22/2024 11:27:53 Anemia 984785898 D64.9 Intertrigo 92966112 L30. 4 Bilateral heel pain 1563 515464 4473094 M79.672 Diastolic heart failure 703502884 I50.32 Atrial fibrillation 4943 6004 I48.19 Vascular dementia 203290 004 F01.B0 Essential hypertension 70865144 I10 Diabetes mellitus 286356 09 E11.9 Chronic pain 42152608 G8 9.29 Gastroesop hageal reflux disease without esophagitis 675284151 K21.9 Mixed anxi ety and depressive disorder 112508277 F41.8 History of cerebrovascular accident 747045655 Z86.73 Adult fail ure to thrive syndrome 046775135 R62.7 At [facility] risk for imbalanced nutrition, less than body requirements 417384989 Z91.89 Constipation 59468990 K5 9.00 Nausea and vomiting 1693 2000 R11.2 Health Concerns Section Related Observation LastModified by Organization Detai ls LastModified Time None Recorded Concern Status LastModified by Organization Details LastModified Time None Recorded Payers Encounter Date Sequence Insurance Name Policy Number Policy Lina[place] Covered Member ID Lina[place] Member ID Guarantor Name 04/21/2024 2 [place] [employer] Traci Kingsley Arturo [id number] Traci Arturo 04/21/2024 1 [place] [employer] Traci Kingsley Brucegrzyn [id number] Traci Arturo Notes Date Note Type Note Provider Name and Address Organization Details Recorded Time 04/21/2024 text/html Traci is seen today for an acute rounding visit. PMH includes HTN, AODM, Afib on Eliquis, CHF pEF, dementia, hx of CVA with left hemiparesis, anemia, depression/anxiety, chronic back pain, hyperaldosteronism, HLD, insomnia, falls, urinary retention and GERD. Traci is a 73 yo LTC resident, who presented with hypoxia and severe anemia at [facility] and was recently admitted to [facility] from 03/26-04/08/24 requiring ICU care complicated by sepsis pneumonia and CHF now back for LTC and continued care. Since her return she is declining. On review since February she has lost approx 18 lbs and on 04/17 weighs 97 lbs. Overall, staff states she occasionally vomits and refuses most meals lately. On exam, she is lying in bed in NAD, and baseline confused and alert today. She states she does not want to , and reports she will eat, however she is afraid of vomiting and states she has vomited recently. She denies any pain today. She denies nausea, vomiting, reflux, or upset stomach at this exact moment, she does state she has no appetite. No bleeding or bloody stools noted from pt or nursing. In fact, only a small bm on 04/18 in the record and pt unsure if she has stooled. A call to her guardian is made, Jair, and he is court appointed and states he would like to keep her as a full code at this time. G tube is undecided on form aswell as hydration and will have to assume yes at this time. He states he will call son Luis Fernando HCP #2 and discuss with him about care and plan. Labs from 04/11 and 04/18 reviewed and stable. Will reorder labs for courtney am with notable decline and then weekly as before. See plan in H & P as discussed with guardian, patient, and nursing. This [employer] spent >45 minutes with family GOC conversation, patient, documentation and nursing. of note:hospital work up included:CHF: diuresedwtih IV lasix and started on po furosemide with potassium repletion. TTE on 04/01 EF 25-30% with mod-severe left ventricular systolic fx consistent with mid LV Takotsubo. Cardiology consulted: metoprolol reduced from 75 to 50 mg bid. Spirolactone and amlodipine dc'd. Started on Entresto and empagliflozin.AFwit h RVF: started on amiodarone 200 mg bid for 28 days total, then daily.Will need cardiology fu outpt.Pneumonia/hyp oxiatx with abx and weaned to 2l o2 overnight. Blood cultures neg on recheck of initial contaminant. Chest xray: pulm edema with small pleural effusions with pneumonia noted on 04/04/24.Anemia:3 units PRBCs transfused. no scope rec, apixaban intially held, and resumed on dc. CBC in 1 week.U/S abd: gallstones without inflammatory changes and atrophic right kidney.Transaminase keven: felt due to liver shock for hypotension and felt resolved. Loni Love, LOREN [address] [facility] [address], [address], [place], [address], [facility] [employer] 04/21/2024 11:48:33 OBGyn Episode No OBEpisode recorded.
== END 2024-04-26 17:05 | disposition skilled nursing facility (03) | DRG 641 ==
LOC: HO.ED 15:31 → HO.EDOVER 17:32 → HO.IMC 04-23 02:09
PROVIDERS: Family Medicine; Admitting Provider Student in an Organized Health Care Education/Training Program; Emergency Provider Emergency Medicine Emergency Medical Services; PCP Family Medicine; Visit Provider Hospitalist
DX: E87.5 Hyperkalemia (principal); I13.0 Hypertensive heart and chronic kidney disease with heart failure and stage 1 through stage 4 chronic kidney disease, or unspecified chronic kidney disease; I50.22 Chronic systolic (congestive) heart failure; N17.9 Acute kidney failure, unspecified; I42.9 Cardiomyopathy, unspecified; N18.30 Chronic kidney disease, stage 3 unspecified; T46.4X5A Adverse effect of angiotensin-converting-enzyme inhibitors, initial encounter; E11.22 Type 2 diabetes mellitus with diabetic chronic kidney disease; D63.1 Anemia in chronic kidney disease; F01.50 Vascular dementia, unspecified severity, without behavioral disturbance, psychotic disturbance, mood disturbance, and anxiety; I48.0 Paroxysmal atrial fibrillation; Z20.822 Contact with and (suspected) exposure to COVID-19; Z87.891 Personal history of nicotine dependence; Z79.01 Long term (current) use of anticoagulants; Z79.84 Long term (current) use of oral hypoglycemic drugs; Z79.899 Other long term (current) drug therapy
CPT/HCPCS: 0241U; 36415; 71046; 74176; 80048; 80053; 81001; 83605; 84132; 84145; 85025; 85027; 86140; 87040; 93005; 99285

== ENCOUNTER → 2024-04-22 14:51 | Outpatient (BNV) | payer MEDICARE, MEDICAID, SELFPAY | PROVIDERS: Admitting Provider Student in an Organized Health Care Education/Training Program; Emergency Provider Emergency Medicine Emergency Medical Services; PCP Family Medicine; Visit Provider Internal Medicine Cardiovascular Disease | DX: R94.31 Abnormal electrocardiogram [ECG] [EKG] (principal) | CPT/HCPCS: 93010 ==

== ENCOUNTER → 2024-04-22 17:13 | Outpatient (BNV) | payer MEDICARE, MEDICAID, SELFPAY | PROVIDERS: Admitting Provider Student in an Organized Health Care Education/Training Program; Emergency Provider Emergency Medicine Emergency Medical Services; PCP Family Medicine; Visit Provider Student in an Organized Health Care Education/Training Program | DX: N17.9 Acute kidney failure, unspecified (principal); E87.5 Hyperkalemia | CPT/HCPCS: 99223; 99232; 99239 ==

== ENCOUNTER 2024-05-23 08:30 | Outpatient (AMB) | payer MEDICARE, MEDICAID, SELFPAY ==
--- NOTE | 2024-05-23 08:32 | A.OFFVIS_ITS ---
Vital Signs 05/23/24 08:33 Height 5 ft 3 in BP 110/56 L Blood Pressure Location Lt brachial Position Sitting Pulse 63 Pulse Source Monitor Intake Visit Reasons: [facility] ([facility]) Straddle Bug Required: No Allergies tuberculin, purified protein deriva [TB TEST] Allergy (Unknown, Verified 05/23/24 08:36) UNK aspirin [ASA] Adverse Reaction (Unknown, Verified 05/23/24 08:36) GI UPSET, stomach upset Medication List - Last Reconciled 05/23/24 by MELLISA Wiggins acetaminophen 650 mg PO Q6H PRN amiodarone 200 mg twice daily for 28 days till 05/06/24, then 200 mg once daily starting 05/07/24 apixaban (Eliquis) 5 mg PO BID atorvastatin 80 mg PO BEDTIME bisacodyl 10 mg SC DAILY PRN cholecalciferol (vitamin D3) 25 mcg PO DAILY clotrimazole 1% 1 appl topical DAILY PRN empagliflozin (Jardiance) 10 mg PO DAILY esomeprazole magnesium 40 mg PO DAILY@0630 famotidine (Pepcid) 20 mg PO DAILY@1200 ferrous sulfate 325 mg PO DAILY folic acid 1 mg PO DAILY furosemide 20 mg See Protocol PO DAILY gabapentin 100 mg PO BEDTIME loperamide 2 mg PO Q6H PRN melatonin 10 mg PO BEDTIME metformin 500 mg PO BID metoprolol tartrate 50 mg See Protocol PO BID mirtazapine (Remeron) Give 7.5 mg at bedtime for 7 days (until 04/29/24), Then give 15 mg at bedtime start 04/30/24 omega 7-ndf-ult-fish oil 1,000 (120-180) mg (Fish Oil) 1 cap PO DAILY ondansetron HCl 4 mg PO TIDWM sacubitril-valsartan 24-26 mg (Entresto) 1 tab See Protocol PO BID sennosides (senna) 8.6 mg PO DAILY sertraline 100 mg PO DAILY sodium phosphates 19-7 gram/118 mL (Fleet Enema) 118 mL SC DAILY PRN HPI HPI [facility] ([facility]): Details: Traci is a 73-year-old female with past medical history of hyperlipidemia, hypertension, diabetes, who was admitted to [facility] in March with hypoxic respiratory failure, aspiration pneumonia. An echocardiogram showed EF 25-30% with wall motion abnormality suggesting takotsubo cardiomyopathy. She was started on appropriate med management. During that admission she was noted to have episodes of paroxysmal atrial fibrillation and was started on Eliquis for anticoagulation. Once condition stabilized she was transferred back to nursing home facility. She was readmitted a short time later with hyperkalemia, potassium 6.7. She had been receiving a potassium supplement along with her Entresto and had REINALDO. She was treated IV fluids. She now presents for follow-up Today she presents for this visit on an EMS transport stretcher. Patient is alert and appropriate. She tells me that she does not walk and usually sits in a chair. She has no physical complaints at present. She denies any recent chest discomfort. No shortness of breath, PND, orthopnea or edema. No lightheadedness, heart palpitations. She has no known bleeding issues. She takes her meds as given to her. She is mostly sedentary. [facility] Medical History (Updated 05/23/24 @ 11:16 by MELLISA Wiggins) Paroxysmal atrial fibrillation Cardiomyopathy Acute CHF Sepsis Anemia Pneumonia Social History Household Members: Unknown / Unable to assess Housing: Prison Do you presently have visiting nurse or other home services: No Patient Tobacco Use Status: Former Tobacco user Tobacco use type: Cigarette e-Cigarette/Vaping Use: Never Used Second Hand Smoke Exposure: No Advance Directives Date on File: 04/11/24 service: No Review of Systems Const All systems reviewed & are unremarkable except as noted in HPI and below ENT Denies dizziness Card Denies chest pain, Denies chest pain at rest, Denies chest pain with activity, Denies rapid heart rate, Denies pedal edema, Denies edema, Denies leg edema, Denies lightheadedness, Denies palpitations, Denies dyspnea, Denies dyspnea on exertion and Denies orthopnea Resp Denies cough, Denies dyspnea and Denies dyspnea on exertion GI Denies hematochezia and Denies change in stool character Musc Details: does not ambulate Reports abnormal gait, Reports limited range of motion, Denies muscle cramps, Reports muscle weakness, Denies numbness, Denies radiating pain into limb, Denies stiffness and Denies tingling Neuro Reports abnormal gait, Denies dizziness, Denies numbness and Denies tingling Endo Denies palpitations Physical Exam Vital Signs: Last Vital Signs Pulse 63 05/23/24 08:33 BP 110/56 L 05/23/24 08:33 Const Other: laying on EMS transport stretcher General: cooperative, comfortable and no acute distress Orientation/consciousness: patient oriented x3 Neck Neck: Yes normal visual inspection Resp Effort & Inspection: normal respiratory effort Auscultation: clear to auscultation bilaterally, no rales, no rhonchi and no wheezes Cardio Jugular venous distension: no JVD Rate: regular rate Rhythm: regular rhythm Heart sounds: S1 normal heart sound present, S2 normal heart sound present, no murmurs and no rubs Neuro General: patient oriented x3 Extrem General: Yes normal to inspection Psych Appearance: grossly normal Mental Status: mental status grossly normal Speech and movement: Normal speech and movement present Office Procedures EKG Details: Today, read by me, Sinus Rhythm nonspecific ST/ T wave abn, rate 63, QTc 450ms [id number], Complete Assessment & Plan Assessment & Plan (1) Cardiomyopathy: Code(s): I42.9 - Cardiomyopathy, unspecified Category: Medical Plan: Recent [facility] admission for hypoxic respiratory failure and treated for aspiration pneumonia. An echocardiogram showed EF 25-30% with wall motion abnormality. Troponin peak 47. She was thought to have takotsubo cardiomyopathy. She was treated for her medical conditions and started on Entresto, metoprolol and Jardiance for neurohormonal modulation. She was diuresed and started on Lasix. She did have a readmission for hyperkalemia with potassium 6.7. Notes indicate that she was receiving a potassium supplement along with Entresto. Last labs in our system shows potassium 4.2. Will check with her nursing home facility see if she has had labs since that time. On exam today she does not appear fluid overloaded. She has no physical complaints. Will have her continue on Entresto, metoprolol and Jardiance. Continue Lasix at 20 mg daily. Will update a limited echo to re-evaluate EF and wall motion. Will check a pharmacological nuclear stress test to evaluate for ischemia. She will not be able to walk on a treadmill as she is nonambulatory. Cardiology follow-up 3 months, sooner if needed. (2) Acute HFrEF (heart failure with reduced ejection fraction): Code(s): I50.21 - Acute systolic (congestive) heart failure Category: Medical Plan: During March admission she was noted to have fluid overload and was diuresed and started on daily Lasix. EF 25-30% as above. At this time she does not appear fluid overloaded. No med changes made. Checking a Holter monitor. (3) Paroxysmal atrial fibrillation: Code(s): I48.0 - Paroxysmal atrial fibrillation Category: Medical Plan: During March admission she was noted to have episodes of paroxysmal atrial fibrillation. She was started on metoprolol for rate control. She was started on Eliquis for anticoagulation. Pulse today is regular on examination. EKG shows normal sinus rhythm with nonspecific ST and T-wave abnormality. No bleeding issues reported. Checking with her nursing home facility regarding most recent labs. (4) Hospital discharge follow-up: Code(s): Z09 - Encounter for follow-up examination after completed treatment for conditions other than malignant neoplasm Category: Medical Plan: As above Plan Time spent on chart review, documentation, interview and assessment Orders: Orders ECG 3 day holter monitor Today I48.0 - Paroxysmal atrial fibrillation CA Echo Limited Today I42.9 - Cardiomyopathy, unspecified CA lexiscan stress w lizeth Today I50.21 - Acute systolic (congestive) heart failure NM cardiolite stress test Today I50.21 - Acute systolic (congestive) heart failure Coding Level of Care Code Est Pt Level 4 (03612) Complex EM visit Add On G2211 Diagnoses Cardiomyopathy I42.9 Acute HFrEF (heart failure with reduced ejection fraction) I50.21 Paroxysmal atrial fibrillation I48.0 Hospital discharge follow-up Z09 CPT Codes EKG - CPT: 30765-[id number], Complete ([id number]) Time Spent (min) 36
[2024-05-23 08:33] VITALS: BP 110/56; PULSE 63
--- OUTSIDE RECORDS SUMMARY | 2024-05-23 08:50 | XMS_ITS | Continuity of Care Document ---
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 Role Phone [facility] OTHER Assessment No [...] Address Organization Details Recorded Time Vascular dementia [id number] Active 2019 VIELKA JIMÉNEZ [address] , [address], [place], [address], [facility] [employer] 0 11:42:15 Diabetes mellitus 89930621 Active 2019 VIELKA JIMÉNEZ [address], [address], [place], [address], [facility] [employer] 0 11:42:37 Atrial fibrillatio n 07072259 Active 2019 VIELKA JIMÉNEZ [address], [address], [place], [address], [facility] [employer] 0 11:43:55 Recurrent falls 682759968 Active 2019 VIELKA JIMÉNEZ [address], [address], [place], [address], [facility] [employer] 0 11:44:10 Diastolic heart failure 763074589 Active 2019 VIELKA JIMÉNEZ [address], [address], [place], [address], [facility] 0 11:44:39 Hyperlipide keven 98255270 Active 2019 ALFREDO WATERSJEAN PAULNIVIA IBRAHIMP [address], [address], [place], [address], [facility] 0 11:45:05 Essential hypertensio n 77267272 Active 2019 ALFREDO WATERSMARIJANIVIAP [address], [address], [place], [address], [facility] 0 11:45:23 History of cerebrovasc ular accident 013274612 Active 2019 ALFREDO VLADISLAVNIVIAP [address] , [address], [place], [address], [facility] 0 12:00:03 Insomnia 257360056 Active 2019 ALFREDOSA LOOMIS CAR PARK ATTENDANT [address] [facility], [address], [place], [address], [facility] 0 12:06:58 Anxiety 51635027 Active 2019 ALFREDO VLADISLAVNIVIAP [address], [address], [place], [address], [facility] 0 12:07:06 Chronic back pain 537855491 Active 2019 ALFREDO LOOMIS [employer] PARK ATTENDANT [address] , [address], [place], [address], [facility] 0 12:18:41 Retention of urine 351112409 Active 2019 ALFREDO LOOMIS [employer] 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 [address], [address], [place], [address], [facility] 0 12:48:03 Hyperaldost eronism 43191860 Active 2019 VIELKA JIMÉNEZ [address], [address], [place], [address], [facility] 0 13:01:27 Acute depression 524091142 Active 2019 VIELKA JIMÉNEZ [address], [address], [place], [address], [facility] 0 08:47:18 Vitamin D deficiency 08995828 Active 2020 VIELKA JIMÉNEZ [address], [address], [place], [address], [facility] 1 17:14:42 Gastroesoph ageal reflux disease without esophagitis 978938935 Active 2020 VIELKA JIMÉNEZ [address], [address], [place], [address], [facility] 1 17:18:13 Hypokalemia 32846510 Active 2021 Pam Ruiz MD [address] , [address], [place], [address], [facility] 2 16:55:42 Vertigo 620694270 Active 2021 VILEKA JIMÉNEZ [address] , [address], [place], [address], [facility] 2 12:48:50 Anemia 982514641 Active 2022 ANDREA ENGEL NP [address] [facility], [address], [place], [address], [facility] 3 11:25:41 Mixed anxiety and depressive disorder 308752259 Active 2023 ANDREA ENGEL NP [address] [facility], [address], [place], [address], [facility] 4 10:11:52 Acute nontraumati c kidney injury 6472548087182 03 Active 2023 Loni Love NP [address] [facility], [address], [place], [address], [facility] 4 13:00:33 Chronic kidney disease 557870095 Active 2023 Loni Love NP [address] [facility], [address], [place], [address], [facility] 4 13:00:40 Problem Notes None recorded. Medical Equipment None Reported. Allergies Allergen ID Allergen Name Allergen Category Reaction Reaction Severity Criticality Documentation Date Start Date Code Code System Note Provider Name and Address Organization Details Recorded Time [id number] aspirin medicatio n Not available Not available Not available 08/05/2019 1191 RxNorm GI upset Not Available Not Available Not Available [id number] purified protein derivativ e of tuberculi n medicatio n Not available Not available Not available 08/05/2019 8948 RxNorm Not Available Not Available Not Available Medications Name Sig Start Date Stop Date Status Note LastModified by Organization Details LastModified Time tramadol 50 mg tablet 1/2 (25 mg) po q 8 h prn mod-sev ere pain 023 active Not Available Not Available Not Avai lable Vitals Date Recorded Body height Body mass index (BMI) Body weight Heart rate Respiratory rate Body temperature Oxygen saturation Oxygen saturation in Arterial blood by Pulse oximetry Systolic blood pressure Diastolic blood pressure Provider Name and Address Organization Details Last Updated DateTime 4 165.1 cm 16.1 kg/m2 54329.4 6 g 74 /min 18 /min 97.6 [degF] 95 % 95 % 139 mm[Hg] 65 mm[Hg] Loni Love NP [address] [facility], [facility] [address], [place], [address], [facility] [employer] 4 19:01:05 Social History Question Answer Notes LastModified by Organizat ion Details LastModified Time Tobacco Smoking Status Former Smoker smoked 1 ppd Pam Ruiz MD [address] [facility], [facility] [address], [place], [address], [facility] [employer] 10/03/2021 16:20:40 Do You Have An Advance Directive? Yes Full Code-use Dialysis, Nutrition And Hydration Short Term - Appears To Have Been Completed Prior To Assignment Of Guardian. [email or web address] Information not available 07/14/2022 What Is Your Level Of Alcohol Consumption? None [id number] Information not available 03/13/2020 How Much Tobacco Do You Chew? None [id number] Information not available 03/13/2020 What Is Your Code Status? Full Code Information not available 10/03/2021 Do You Or Have You Ever Used E-cigarettes Or Vape? Never Used Electronic Cigarettes [id number] Information not available 03/13/2020 Where Do You Live? Other LTC At [facility] Information not available 10/03/2021 Legal Guardian? Yes Decree Uploaded In [facility]; Does Not Authorize Revocation Of HCP. 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 Yes There Is A HCP Uploaded In [facility] But It Is Labeled As Invalid; There Is A HCP Invocation Uploaded In [facility] [email or web address] Information not available 07/14/2022 What Was The Date Of Your Most Recent Tobacco Screening? 09/24/2023 [email or web address] Information not available 09/24/2023 Do You Have An Out Of Hospital DNR? No Information not available 10/03/2021 What Is Your Relationship Status? Information not available 10/03/2021 Do You Or Have You Ever Used Smokeless Tobacco? Never Used Smokeless Tobacco [id number] Information not available 03/13/2020 How Much Tobacco Do You Smoke? No Information not available 10/03/2021 Do You Use Any Illicit Or Recreational Drugs? No Information not available 10/03/2021 Has Tobacco Cessation Counseling Been Provided? No N/A [email or web address] Information not available 07/14/2022 How Many Years Have You Smoked Tobacco? 20 [id number] Information not available 03/13/2020 Do You Or [...] high-dose, quadrivalent, PF 1 completed Conchita Roy [facility] 04/23/2021 11:48:58 Influenza, split virus, quadrivalent, preservative 2 completed Mally Rivera null, [facility] 03/12/2022 13:21:44 COVID-19, mRNA, LNP-S, bivalent, PF, 30 mcg/0.3 mL dose 2 completed GERDA LACEY PA-C [address] [facility], [address], [place], [address], [facility] 05/22/2022 10:21:46 pneumococcal polysaccharide PPV23 2 completed GERDA LACEY PA-C [address] [facility], [address], [place], [address], [facility] 07/14/2022 16:07:16 COVID-19, mRNA, LNP-S, bivalent, PF, 30 mcg/0.3 mL dose 3 completed Yola Allen null, [facility] 07/06/2023 11:54:06 Influenza, split virus, quadrivalent, preservative 0 completed Conchita Roy null, [facility] 02/29/2020 10:48:11 COVID-19, mRNA, LNP-S, PF, 30 mcg/0.3 mL dose 1 completed VIELKA JIMÉNEZ [address] [place] [address], [address], [place], [address], [facility] 07/17/2020 18:20:26 COVID-19, mRNA, LNP-S, PF, 30 mcg/0.3 mL dose 1 completed VIELKA JIMÉNEZ [address] [place] [address], [address], [place], [address], [facility] 07/17/2020 18:20:39 Pneumococcal conjugate PCV 13 6 completed VIELKA JIMÉNEZ [address] [facility], [address], [place], [address], [facility] 08/21/2020 18:18:49 pneumococcal polysaccharide PPV23 1 completed VIELKA JIMÉNEZ [address] [facility], [address], [place], [address], [facility] 08/21/2020 18:19:12 tetanus toxoid, unspecified formulation 6 completed ALFREDO LOOMIS, VIELKA [address], [address], [place], [address], [facility] [employer] 08/21/2020 18:19:31 Past Encounters Encounter ID Performer Location Encounter Start Date Encounter Closed Date Diagnosis/Indication Diagnosis SNOMED-CT Code Diagnosis ICD10 Code Diagnosis Note [id number] Loni Love NP [facility] [address] [place] [address] 04/11/2024 08:09:34 04/13/2024 08:48:14 Mixed anxiety and depressive disorder 952397596 F41.8 Followed by Psych.Due to persistent depressed mood, zoloft increased to 100 mg qd about a month ago; everett. well so far. Continue:g abapentin 100 mg at hs trazodone 50 mg at hsmelatoni n 10 mg q hs Monitor mood, behaviors Vascular dementia 469657 004 F01.B0 decline expectedco ntinue emotional supportmon itor mental statusBIMS completed 09/24/23 = score 10/30 Essential hypertension 44795469 I10 Last BP was charted on 02/15 and was borderline .Continuee ntresto 49-51 po bid(note in dc summary states bid, however in narrative mentions daily) cont this dose as she is stable and bp in good control and monitor for need to adjust)met oprolol 50 mg BID.Monito r BP and labs. Diabetes mellitus 698233 09 E11.9 BS remains in good control when checked monthly.La st HgA1C 5.1%Record ed BS low-mid 100s.Britney nue metformin 500 mg BID.jardia nce 10 mg po dailyMonit or fingerstic ks BID one day/month and HgA1C q 6 months. Atrial fibrillation 0373 6004 I48.19 AFwith RVF: started on amiodarone 200 mg bid for 28 days total, then daily.Rate remains in good control on metoprolol and amiodarone since backContin ueeliquis 5 mg BID for AC.Monitor HR and bleeding risk. Diastolic heart failure 468475881 I50.32 CHF: diuresed wtih IV lasix and started on po furosemide with potassium repletion. TTE on 04/01 EF 25-30% with mod-severe left ventricula r systolic fx consistent with mid LV Takotsubo. Cardiology consulted: metoprolol reduced from 75 to 50 mg bid.Spirol actone and amlodipine dc'd.Start ed on Entresto and empagliflo zin.furose mide 20 mg po bidWill need cardiology fu outpt.Appe ars compensate d.Monitor resp. status, fluid status, wts and labs. Chronic pain 01848211 G8 9.29 Pain in adequate control.Co ntinuegaba pentin 100 mg qhsAPAP 650 mg q 6 hrs prnMonitor sxs Gastroesop hageal reflux disease without esophagitis 774426584 K21.9 Continuees omeprazole 40 mg qdMonitor sxs. Anemia 485931529 D64.9 Issues with macrocytic and microcytic anemia in past felt to have severe anemia without scope in hosp given three units PRBCs in hosp..with hx of Fe def. anemia.Con tinue Fe qd, and esomeprazo le 40 mg qdRepeat labs improvedNo s/s active bleeding.R emains on AC for now.Monito r CBC weekly x 3. History of cerebrovascular accident 309250205 Z86.73 Continue:a torvastati n 80 mg dailyapixa ban 5 mg bidmonitor labs prn Pneumonia 768133898 J18. 9 resolvedPn eumonia/hy poxia tx with abx and weaned to 2l o2 overnight. Blood cultures neg on recheck of initial contaminan t. 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 anemia.Con tinueFe qd,esomepr azole 40 mg qdRepeat labs improved last weekNo s/s active bleeding.R emains on AC for now.Monito r CBC weekly x 2. Diastolic heart failure 925778954 I50.32 CHF: diuresed wtih IV lasix and started on po furosemide with potassium repletion. TTE on 04/01 EF 25-30% with mod-severe left ventricula r systolic fx consistent with mid LV Takotsubo. Cardiology consulted: contmetopr olol 50 mg bid. (reduced from 75 mg po bidSpirola ctone and amlodipine dc'd.Start ed on Entresto and empagliflo zin.furose mide 20 mg po bidWill need cardiology fu outpt. 04/18 cardiology referral sentMonito r resp. status, fluid status, wts and labs.appea rs euvolemic Atrial fibrillation 4943 6004 I48.19 AF with RVF: started on amiodarone 200 mg bid for 28 days total, then daily.Rate remains in good control on metoprolol and amiodarone since backContin ueeliquis 5 mg BID for AC.Monitor HR and bleeding risk. Vascular dementia 281160 004 F01.B0 decline expectedco ntinue emotional supportmon itor mental statusBIMS completed 09/24/23 = score 6/15 Essential hypertension 89819096 I10 Last BP stableCont inueentres to 49-51 po bid(note in dc summary states bid, however in narrative mentions daily) cont this dose as she is stable and bp in good control and monitor for need to adjust)met oprolol 50 mg BID.Monito r BP and labs. Diabetes mellitus 473376 09 E11.9 BS remains in good control when checked monthly.La st HgA1C 5.1%Record ed BS low-mid 100s.Britney nue metformin 500 mg BID. jardiance 10 mg po dailyMonit or fingerstic ks BID one day/month and HgA1C q 6 months. Chronic pain 68929527 G8 9.29 Pain in adequate control.Co ntinuegaba pentin 100 mg qhsAPAP 650 mg q 6 hrs prnMonitor sxs Gastroesop hageal reflux disease without esophagitis 189133127 K21.9 Continuees omeprazole 40 mg qdMonitor sxs. Mixed anxi ety and depressive disorder 204333616 F41.8 Followed by Psych.Due to persistent depressed mood, zoloft increased to 100 mg qd about a month ago; everett. well so far.Contin ue:gabapen tin 100 mg at hs trazodone 50 mg at hsmelatoni n 10 mg q hsMonitor mood, behaviors History of cerebrovascular accident 253476007 Z86.73 Continue:a torvastati n 80 mg dailyapixa ban 5 mg bidmonitor labs prn Intertrigo 29070053 L30. 4 house antifungal cream to groin area bid and prn until resovledmo nitor Bilateral heel pain 1563 200094 1693157 M79.672 left heel pain with bilateral boggy heelsskin prep to bilateral heels bid until healedelev ate heels on pillow and offload pressure Health Concerns Section Related Observation LastModified by Organization Detai ls LastModified Time None Recorded Concern Status LastModified by Organization Details LastModified Time None Recorded Payers Encounter Date Sequence Insurance Name Policy Number Policy Linares Covered Member ID Linares Member ID Guarantor Name 04/18/2024 2 [place]ICAID[place]: [facility] Traci Kingsley Wegrzyn [id number] Traci Arturo 04/18/2024 1 [place] [employer] Traci Kingsley Wegrzyn [id number] Traci Arturo Notes Date Note Type Note Provider Name and Address Organization Details Recorded Time 04/18/2024 text/html Traci is seen today for an acute rounding visit. PMH includes HTN, AODM, Afib on Eliquis, CHF pEF, dementia, hx of CVA with left hemiparesis, anemia, depression/anxiety , chronic back pain, hyperaldosteronism , HLD, insomnia, falls, urinary retention and GERD. Traci is a 73 yo LTC resident, who presented with hypoxia and severe anemia at [facility] and was recently admitted to [facility] from 03/26-04/08/24 requiring ICU care complicated by sepsis pneumonia and CHF. On exam, Traci is lying in bed in NAD. She has notable red excoriated moist groin area and boggy heels. She is alert and asks she not be moved from her bed today. She has decreased eating and considerable weight loss since she has been back. She cannot answer why she hasn't ate much today, however states she does not want to and will try to eat more. She denies nausea, vomiting, reflux, or upset stomach. No bleeding or bloody stools noted from pt or nursing. Labs from 04/11 reviewed and stable. of note:work up included:CHF: diuresedwtih IV lasix and started on po furosemide with potassium repletion. TTE on 04/01 EF 25-30% with mod-severe left ventricular systolic fx consistent with mid LV Takotsubo. Cardiology consulted: metoprolol reduced from 75 to 50 mg bid. Spirolactone and amlodipine dc'd. Started on Entresto and empagliflozin.AFwi th RVF: started on amiodarone 200 mg bid for 28 days total, then daily.Will need cardiology fu outpt.Pneumonia/hy poxiatx with abx and weaned to 2l o2 overnight. Blood cultures neg on recheck of initial contaminant. Chest xray: pulm edema with small pleural effusions with pneumonia noted on 04/04/24.Anemia:3 units PRBCs transfused. no scope rec, apixaban intially held, and resumed on dc. CBC in 1 week.U/S abd: gallstones without inflammatory changes and atrophic right kidney.Transaminas emia: felt due to liver shock for hypotension and felt resolved. Loni Love, LOREN [address] [facility], [address], [place], [address], [facility] [employer] 04/18/2024 19:26:50 OBGyn Episode No OBEpisode recorded.
--- OUTSIDE RECORDS SUMMARY | 2024-05-23 08:50 | XMS_ITS | Continuity of Care Document ---
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 [employer] Name Role Phone [facility] OTHER Assessment No [...] Address Organization Details Recorded Time Vascular dementia [id number] Active 2019 VIELKA JIMÉNEZ [address] , [address], [place], [address], [facility] 0 11:42:15 Diabetes mellitus 59400618 Active 2019 VIELKA JIMÉNEZ [address], [address], [place], [address], [facility] 0 11:42:37 Atrial fibrillatio n 64879406 Active 2019 VIELKA JIMÉNEZ [address], [address], [place], [address], [facility] 0 11:43:55 Recurrent falls 408660217 Active 2019 VIELKA JIMÉNEZ [address], [address], [place], [address], [facility] 0 11:44:10 Diastolic heart failure 976970979 Active 2019 VIELKA JIMÉNEZ [address], [address], [place], [address], [facility] 0 11:44:39 Hyperlipide keven 10373099 Active 2019 ALFREDO WATERSJEAN PAULNIVIA IBRAHIMP [address], [address], [place], [address], [facility] 0 11:45:05 Essential hypertensio n 83155353 Active 2019 ALFREDO WATERSMARIJANIVIAP [address], [address], [place], [address], [facility] 0 11:45:23 History of cerebrovasc ular accident 492598826 Active 2019 ALFREDO VLADISLAVNIVIAP [address] , [address], [place], [address], [facility] 0 12:00:03 Insomnia 718344758 Active 2019 ALFREDOSA LOOMIS MEDICAL LIBRARY ASSISTANT [address] [facility], [address], [place], [address], [facility] 0 12:06:58 Anxiety 36307631 Active 2019 ALFREDO VLADISLAVNIVIAP [address], [address], [place], [address], [facility] 0 12:07:06 Chronic back pain 466948968 Active 2019 ALFREDO LOOMIS MEDICAL LIBRARY ASSISTANT [address] , [address], [place], [address], [facility] 0 12:18:41 Retention of urine 426952522 Active 2019 ALFREDO LOOMIS MEDICAL LIBRARY ASSISTANT [address], [address], [place], [address], [facility] 0 12:48:03 Hyperaldost eronism 82330882 Active 2019 VIELKA JIMÉNEZ [address], [address], [place], [address], [facility] 0 13:01:27 Acute depression 293092420 Active 2019 VIELKA JIMÉNEZ [address], [address], [place], [address], [facility] 0 08:47:18 Vitamin D deficiency 82956661 Active 2020 VIELKA JIMÉNEZ [address], [address], [place], [address], [facility] 1 17:14:42 Gastroesoph ageal reflux disease without esophagitis 314038920 Active 2020 VIELKA JIMÉNEZ [address], [address], [place], [address], [facility] 1 17:18:13 Hypokalemia 07148083 Active 2021 Pam Ruiz MD [address] , [address], [place], [address], [facility] 2 16:55:42 Vertigo 819068244 Active 2021 VIELKA JIMÉNEZ [address] , [address], [place], [address], [facility] 2 12:48:50 Anemia 666536397 Active 2022 ANDREA ENGEL NP [address] [facility], [address], [place], [address], [facility] 3 11:25:41 Mixed anxiety and depressive disorder 556980117 Active 2023 ANDREA ENGEL NP [address] [facility], [address], [place], [address], [facility] 4 10:11:52 Acute nontraumati c kidney injury 2873711137744 03 Active 2023 Loni Love NP [address] [facility], [address], [place], [address], [facility] 4 13:00:33 Chronic kidney disease 272107214 Active 2023 Loni Love NP [address] [facility], [address], [place], [address], [facility] 4 13:00:40 Problem Notes None recorded. Medical Equipment None Reported. Allergies Allergen ID Allergen Name Allergen Category Reaction Reaction Severity Criticality Documentation Date Start Date Code Code System Note Provider Name and Address Organization Details Recorded Time [id number] aspirin medicatio n Not available Not available Not available 08/05/2019 1191 RxNorm GI upset Not Available Not Available Not Available [id number] 2824e purified protein derivativ e of tuberculi [...] Details Last Updated DateTime 4 165.1 cm 70 /min 18 /min 97.9 [degF] 95 % 95 % 139 mm[Hg] 65 mm[Hg] Loni Love NP [address] [place] [address], [place], [address], [facility] 4 12:15:56 Social History Question Answer Notes LastModified by Organizat ion Details LastModified Time Tobacco Smoking Status Former Smoker smoked 1 ppd Pam Ruiz MD [address] [facility] [address], [place], [address], [facility] 10/03/2021 16:20:40 Do You Have An Advance Directive? Yes Full Code-use Dialysis, Nutrition And Hydration Short Term - Appears To Have Been Completed Prior To Assignment Of Guardian. [email or web address] Information not available 07/14/2022 What Is Your Level Of Alcohol Consumption? None [id number] Information not available 03/13/2020 How Much Tobacco Do You Chew? None [id number] Information not available 03/13/2020 What Is Your Code Status? Full Code Information not available 10/03/2021 Do You Or Have You Ever Used E-cigarettes Or Vape? Never Used Electronic Cigarettes [id number] Information not available 03/13/2020 Where Do You Live? Other LTC At [facility] Information not available 10/03/2021 Legal Guardian? Yes Decree Uploaded In [facility]; Does Not Authorize Revocation Of HCP. Information not available 10/03/2021 Do You Have A Medical Power Of Print Line Inspector? Yes There Is A HCP Uploaded In [facility] But It Is Labeled As Invalid; There Is A HCP Invocation Uploaded In [facility] [email or web address] Information not available 07/14/2022 What Was The Date Of Your Most Recent Tobacco Screening? 09/24/2023 [email or web address] Information not available 09/24/2023 Do You Have An Out Of Hospital DNR? No Information not available 10/03/2021 What Is Your Relationship Status? Information not available 10/03/2021 Do You Or Have You Ever Used Smokeless Tobacco? Never Used Smokeless Tobacco [id number] Information not available 03/13/2020 How Much Tobacco Do You Smoke? No Information not available 10/03/2021 Do You Use Any Illicit Or Recreational Drugs? No Information not available 10/03/2021 Has Tobacco Cessation Counseling Been Provided? No N/A [email or web address] Information not available 07/14/2022 How Many Years Have You Smoked Tobacco? 20 [id number] Information not available 03/13/2020 Do You Or [...] high-dose, quadrivalent, PF 1 completed Conchita Roy [facility] 04/23/2021 11:48:58 Influenza, split virus, quadrivalent, preservative 2 [facility]22 13:21:44 COVID-19, mRNA, LNP-S, bivalent, PF, 30 mcg/0.3 mL dose 2 completed GERDA LACEY PA-C [address], [address], [place], [address], [facility] 05/22/2022 10:21:46 pneumococcal polysaccharide PPV23 2 completed GERDA LACEY PA-C [address] [facility], [address], [place], [address], [facility] 07/14/2022 16:07:16 COVID-19, mRNA, LNP-S, bivalent, PF, 30 mcg/0.3 mL dose 3 completed Yola saunders, [facility] 07/06/2023 11:54:06 Influenza, split virus, quadrivalent, preservative 0 completed Conchita saunders, [facility] 02/29/2020 10:48:11 COVID-19, mRNA, LNP-S, PF, 30 mcg/0.3 mL dose 1 completed VILEKA JIMÉNEZ [address] [facility], [address], [place], [address], [facility] 07/17/2020 18:20:26 COVID-19, mRNA, LNP-S, PF, 30 mcg/0.3 mL dose 1 completed VIELKA JIMÉNEZ [address] [facility], [address], [place], [address], [facility] 07/17/2020 18:20:39 Pneumococcal conjugate PCV 13 6 completed VIELKA JIMÉNEZ [address] [facility], [address], [place], [address], [facility] 08/21/2020 18:18:49 pneumococcal polysaccharide PPV23 1 completed NIVIA JIMÉNEZP [address] [facility], [address], [place], [address], [facility] 08/21/2020 18:19:12 tetanus toxoid, unspecified formulation 6 completed VIELKA JIMÉNEZ [address] [facility], [address], [place], [address], [facility] 08/21/2020 18:19:31 Past Encounters Encounter ID Performer Location Encounter Start Date Encounter Closed Date Diagnosis/Indication Diagnosis SNOMED-CT Code Diagnosis ICD10 Code Diagnosis Note [id number] Loni Love NP [facility] [address] [place] [address] 04/11/2024 08:09:34 04/13/2024 08:48:14 Mixed anxiety and depressive disorder 154901496 F41.8 Followed by Psych.Due to persistent depressed mood, zoloft increased to 100 mg qd about a month ago; everett. well so far. Continue:g abapentin 100 mg at hs trazodone 50 mg at hsmelatoni n 10 mg q hs Monitor mood, behaviors Vascular dementia 787992 004 F01.B0 decline expectedco ntinue emotional supportmon itor mental statusBIMS completed 09/24/23 = score 6/15 Essential hypertension 44239692 I10 Last BP was charted on 02/15 and was borderline .Continuee ntresto 49-51 po bid(note in dc summary states bid, however in narrative mentions daily) cont this dose as she is stable and bp in good control and monitor for need to adjust)met oprolol 50 mg BID.Monito r BP and labs. Diabetes mellitus 894890 09 E11.9 BS remains in good control when checked monthly.La st HgA1C 5.1%Record ed BS low-mid 100s.Britney nue metformin 500 mg BID.jardia nce 10 mg po dailyMonit or fingerstic ks BID one day/month and HgA1C q 6 months. Atrial fibrillation 8253 6008 I48.19 AFwith RVF: started on amiodarone 200 mg bid for 28 days total, then daily.Rate remains in good control on metoprolol and amiodarone since backContin ueeliquis 5 mg BID for AC.Monitor HR and bleeding risk. Diastolic heart failure 189085986 I50.32 CHF: diuresed wtih IV lasix and [...] fluid status, wts and labs. Chronic pain 17960304 G8 9.29 Pain in adequate control.Co ntinuegaba pentin 100 mg qhsAPAP 650 mg q 6 hrs prnMonitor sxs Gastroesop hageal reflux disease without esophagitis 494164948 K21.9 Continuees omeprazole 40 mg qdMonitor sxs. Anemia 715892773 D64.9 Issues with macrocytic and microcytic anemia in past felt to have severe anemia without scope in hosp given three units PRBCs in hosp..with hx of Fe def. anemia.Con tinue Fe qd, and esomeprazo le 40 mg qdRepeat labs improvedNo s/s active bleeding.R emains on AC for now.Monito r CBC weekly x 3. History of cerebrovascular accident 576767776 Z86.73 Continue:a torvastati n 80 mg dailyapixa ban 5 mg bidmonitor labs prn Pneumonia 307634024 J18. 9 resolvedPn eumonia/hy poxia tx with abx and weaned to 2l o2 overnight. Blood cultures neg on recheck of initial contaminan t. Chest xray: pulm edema with small pleural effusions with pneumonia noted on 04/04/24.c bc weekly [id number] for s/s pna sequelae or hypoxiacon lead informatica developer cxr prn for fu Hypoxia 861342144 R09.02 resolvedre lated to pneumonia and gi bleed and chf in hospitalwe aned off [id number] for sequqelae [id number] Loni Love NP [address] [address] 04/18/2024 15:33:11 04/19/2024 09:45:16 Anemia 145510868 D64.9 Issues with macrocytic and microcytic anemia in past felt to have severe anemia without scope in hosp given three units PRBCs in hosp..with hx of Fe def. anemia.Con tinueFe qd,esomepr azole 40 mg qdRepeat labs improved last weekNo s/s active bleeding.R emains on AC for now.Monito r CBC weekly x 2. Diastolic heart failure 722348649 I50.32 CHF: diuresed wtih IV lasix and [...] AC.Monitor HR and bleeding risk. Vascular dementia 031058 004 F01.B0 decline expectedco ntinue emotional supportmon itor mental statusBIMS completed 09/24/23 = score 6/15 Essential hypertension 82354397 I10 Last BP stableCont inueentres to 49-51 po bid(note in dc summary states bid, however in narrative mentions daily) cont this dose as she is stable and bp in good control and monitor for need to adjust)met oprolol 50 mg BID.Monito r BP and labs. Diabetes mellitus 149861 09 E11.9 BS remains in good control when checked monthly.La st HgA1C 5.1%Record ed BS low-mid 100s.Britney nue metformin 500 mg BID. jardiance 10 mg po dailyMonit or fingerstic ks BID one day/month and HgA1C q 6 months. Chronic pain 22714108 G8 9.29 Pain in adequate control.Co ntinuegaba pentin 100 mg qhsAPAP 650 mg q 6 hrs prnMonitor sxs Gastroesop hageal reflux disease without esophagitis 872980483 K21.9 Continuees omeprazole 40 mg qdMonitor sxs. Mixed anxi ety and depressive disorder 759867008 F41.8 Followed by Psych.Due to persistent depressed mood, zoloft increased to 100 mg qd about a month ago; everett. well so far.Contin ue:gabapen tin 100 mg at hs trazodone 50 mg at hsmelatoni n 10 mg q hsMonitor mood, behaviors History of cerebrovascular accident 891662718 Z86.73 Continue:a torvastati n 80 mg dailyapixa ban 5 mg bidmonitor labs prn Intertrigo 55106407 L30. 4 house antifungal cream to groin area bid and prn until resovledmo nitor Bilateral heel pain 1563 170635 5079945 M79.672 left heel pain with bilateral boggy heelsskin prep to bilateral heels bid until healedelev ate heels on pillow and offload pressure [id number] Loni Love NP [address] [address] 04/21/2024 10:25:22 04/22/2024 11:27:53 Anemia 615986291 D64.9 Issues with macrocytic and microcytic anemia in past felt to have severe anemia without scope in hosp given three units PRBCs in hosp..with hx of Fe def. anemia.Con tinueFe qd,esomepr azole 40 mg qdRepeat labs improved last weekNo s/s active bleeding.R emains on AC for now.Monito r CBC weekly Intertrigo 70991890 L30. 4 house antifungal cream to groin area bid and prn until resolvedmo nitor Bilateral heel pain 1563 847102 1631902 M79.672 left heel pain/ redness with bilateral boggy heelsskin prep to bilateral heels bid until healedelev ate heels on pillow and offload [id number] /4 bunny boots to bilateral heels for pressure xygdch08/5 protein liquid 30 cc po dailymonit or for changes or open areas Diastolic heart failure 625253352 I50.32 CHF: diuresed wtih IV lasix and started on po furosemide with potassium repletion. TTE on 04/01 EF 25-30% with mod-severe left ventricula r systolic fx consistent with mid LV Takotsubo. Cardiology consulted: contfurose mide 20 mg po bidmetopro lol 50 mg bid. (reduced from 75 mg po bid)while in hosp (Spirolact one and amlodipine dc'd.Start ed on Entresto and empagliflo zin.Will need cardiology fu outpt. 04/18 cardiology referral sent, nsg to scheduleMo nitor resp. status, fluid status, wts and labs.appea rs euvolemic today Atrial fibrillation 4943 6004 I48.19 seems controlled AF with RVF: started on amiodarone 200 mg bid for 28 days total, then daily.Rate remains in good control on metoprolol and amiodarone since backContin ueeliquis 5 mg BID for AC.Monitor HR and bleeding risk. Vascular dementia 619446 004 F01.B0 decline expectedco ntinue emotional supportmon itor mental statusBIMS completed 09/24/23 = score 6/15 Essential hypertension 05298736 I10 Last BP stableCont inueentres to 49-51 po bid(note in dc summary states bid, however in narrative mentions daily) cont this dose as she is stable and bp in good control and monitor for need to adjust)met oprolol 50 mg BID.Monito r BP and labs. Diabetes mellitus 464152 09 E11.9 BS remains in good control lately, monitor closely with decreased po intakeLast HgA1C 5.1%Record ed BS low-mid 100s.Britney nue metformin 500 mg BID. jardiance 10 mg po dailyMonit or fingerstic ks BID one day/month and HgA1C q 6 months. 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 Mixed anxi ety and depressive disorder 532340348 F41.8 Followed by Psych.Due to persistent depressed mood, zoloft increased to 100 mg qd about a month ago; everett. well so far.Contin ue:gabapen tin 100 mg at hs trazodone 50 mg at hsmelatoni n 10 mg q hsMonitor mood, behaviors History of cerebrovascular accident 563381601 Z86.73 Continue:a torvastati n 80 mg dailyapixa ban 5 mg bidmonitor labs prn Adult fail ure to thrive syndrome 208516192 R62.7 with vomiting and decreased po yrjfwk35/5 start pepcid 20 mg po at 754083/5 schedule zofran 4 mg po at 800, 1200, and 5 pm wtih meals x 14 days , cont prn dose for nausea/vom iting12 hand zipper trimmer to eval for food [id number] order mashed potatoes and oatmeal daily as requested1 2 add remeron 7.5 mg po qhs x 1 week and increase to 15 mg po qhs after12/5 dc trazodone with start of moqlmfa85/ 5 psych consult for depression Continuees omeprazole 40 mg qdMonitor sxs.04/21 cbc and cmp in am12 spoke with guardian and she is a full code at this time, he is updated and will notify son Pretty manriquez sending to ER if further decline At [facility] ed risk for imbalanced nutrition, less than body requirements 266608691 Z91.89 with vomiting and decreased po ynjytx77/5 start pepcid 20 mg po at 289112/5 schedule zofran 4 mg po at 800, 1200, and 5 pm wtih meals x 14 days , cont prn dose for nausea/vom iting04/21 hand zipper trimmer to eval for food szulshi22 order mashed potatoes and oatmeal daily as requested1 2 add remeron 7.5 mg po qhs x 1 week and increase to 15 mg po qhs after12/5 dc trazodone with start of / 5 psych consult for depression Continuees omeprazole 40 mg qdMonitor sxs.125 cbc and cmp in am12/5 spoke with guardian and she is a full code at this time, he is updated and will notify son Tczvbm09 weight weeklycons ider Er if continues to decline Constipation 09363061 K5 9.00 no BM in 3 days and very small, however not eating much12 start bisacodyl supp and mom todayconts judith dailymom prnmonitor Nausea and vomiting 1693 1999 R11.2 n/v see above [id number] Loni Love NP [address] [address] 04/22/2024 12:15:11 04/25/2024 13:28:48 Hyperkalemia 40374857 E87.5 acute hyperkalem ia with critical lab of 6.7 noted from this am pt is declining since back from extensive hosptializ ation lately with weight loss of 18 lbs this month, poor eating, and fatigue She is a full code with court appointed guardian of note: was having vomiting episodes daily, on potassium 20 meq bid for hypokalemi a on recent dc from hospital SEND TO ER For Evaluation and labs Health Concerns Section Related Observation LastModified by Organization Detai ls LastModified Time None Recorded Concern Status LastModified by Organization Details LastModified Time None Recorded Payers Encounter Date Sequence Insurance Name Policy Number Policy Linares Covered Member ID Linares Member ID Guarantor Name 04/22/2024 2 [place] [facility] Traci Kingsley Brucegrzyn [id number] Traci Arturo 04/22/2024 1 [place] [employer] Traci Kingsley Brucegrzyn [id number] Traci Arturo Notes Date Note Type Note Provider Name and Address Organization Details Recorded Time 04/22/2024 text/html Traci is seen today for an acute visit. PMH includes HTN, AODM, Afib on Eliquis, CHF pEF, dementia, hx of CVA with left hemiparesis, anemia, depression/anxiety , chronic back pain, hyperaldosteronism , HLD, insomnia, falls, urinary retention and GERD. Lab reported a critical potassium of 6.7 this am. No EKG available stat at this alf facility and or labs stat to confirm. Will send to ER for evaluation and treatment. On exam, pt is lying in bed in NAD. She is trying to open her cookie and appears fatigued and pale with a withdrawn demeanor lately. She is aware of critical labs and need to go to hospital. of note from recent note on 04/21;Traci is a 73 yo LTC resident, who presented with hypoxia and severe anemia at [facility] and was recently admitted to [facility] from 03/26-04/08/24 requiring ICU care complicated by sepsis pneumonia and CHF now back for LTC and continued care. Since her return she is declining. On review since February she has lost approx 18 lbs and on 04/17 weighs 97 lbs. Overall, staff states she occasionally vomits and refuses most meals lately. A call to her guardian is made, Jair, and he is court appointed and states he would like to keep her as afull codeat this time. G tube is undecided on form aswell as hydration and will have to assume yes at this time. He states he will call son Luis Fernando HCP #2 and discuss with him about care and plan. If she continues to decline will likely need g tube. Recently started on remeron for appetite. of note:hospital work up included:CHF: diuresedwtih IV [...] for hypotension and felt resolved. Loni Love, CARNIVAL WORKER [address] [facility], [address], [place], [address], [facility] 04/22/2024 12:27:09 OBGyn Episode No OBEpisode recorded.
== END 2024-05-23 09:19 | disposition home or self-care (01) ==
PROVIDERS: PCP Family Medicine; Visit Provider Nurse Practitioner Family
DX: I42.9 Cardiomyopathy, unspecified (principal); I50.21 Acute systolic (congestive) heart failure; I48.0 Paroxysmal atrial fibrillation; Z09 Encounter for follow-up examination after completed treatment for conditions other than malignant neoplasm
CPT/HCPCS: 93010; 99214; G2211

== ENCOUNTER → 2024-05-23 08:30 | Outpatient (BNVA) | payer MEDICARE, OTHER, SELFPAY | PROVIDERS: PCP Family Medicine; Visit Provider Nurse Practitioner Family | DX: Z09 Encounter for follow-up examination after completed treatment for conditions other than malignant neoplasm (principal); I42.9 Cardiomyopathy, unspecified; I48.0 Paroxysmal atrial fibrillation; I50.21 Acute systolic (congestive) heart failure | CPT/HCPCS: 93005; 99212 ==

== ENCOUNTER → 2024-07-07 12:55 | Outpatient (REF) | payer MEDICARE, MEDICAID, SELFPAY ==
--- NOTE | 2024-07-07 13:04 | CA_ITS ---
Transthoracic Echocardiogram Patient (Last, First, Middle): Traci Morris K Gender: Female Date of : 1950 Age: 73 Procedure Date: 07/07/2024 Procedure Type: Transthoracic Echocardiogram Location: OP Height: 157.48 cm Weight: 59.99 kg BSA: 1.60 m2 Heart Rate: bpm BP: 130 / 60 mmHg Museum Librarian: TO Referring MD: Prema Stafford MENTAL HEALTH ASSOCIATE-C Symptoms: I42.9 - Cardiomyopathy, unspecified Study Quality: Adequate Conclusions: - The left ventricular systolic function is normal. The visually estimated ejection fraction is between 60-65%. Findings Procedure Information The study quality is limited by the patients inability to tolerate the test. Left Ventricle Normal left ventricular cavity size. The left ventricular systolic function is normal. The visually estimated ejection fraction is between 60-65%. There is moderate septal asymmetric hypertrophy. Venous The inferior vena cava is normal in size and collapses greater than 50% with inspiration. Pericardium/Pleural There is no evidence of pericardial effusion. Prior Study Comparison Changes noted compared to prior study dated: 04/01/2024. Improved LVEF/wall motion. Measurements 2D Linear Measurements IVSd: 1.44 0.6-0.9/0.6-1.0 cm LVIDd: 3.62 3.9-5.3/4.2-5.9 cm LVIDd Index: 2.26 2.4-3.2/2.2-3.1 cm/m2 LVIDs: 2.39 2.0-3.6 cm LVPWd: 0.86 0.7-1.1 cm LA Diam: 3.50 2.7-3.8/3.0-4.0 cm LAIDs Index: 2.19 1.5-2.3 cm/m2 LV Mass: 166.66 67-162/88-224 g LV Mass Index: 104.16 43-95/49-115 g/m2 LVOT Diam: 1.90 3.0+(-)1.3 cm 2D Systolic Function EF 4C: 66.40 >55% EF 2C: 58.70 >55% EF BiP: 62.60 >55% LVOT LVOT Pk Cortes: 0.97 LVOT Mn Cortes: 0.69 LVOT VTI: 0.20 LVOT Pk Grad: 4.00 LVOT Mn Grad: 2.00 LVOT Diam: 1.90 LVOT Area: 2.84 Tricuspid Valve RA Press: 3.00 Updated in Other Vendor System with Status of Final Julio Lynch MD electronically signed on 07/08/2024 5:41:12 PM with status of Final
--- OUTSIDE RECORDS SUMMARY | 2024-07-07 13:50 | XMS_ITS | Encounter Summary ---
Author Organization [email or web address] Address [address] [place] [address] Care Team Providers Care Police Officer Name Role Phone Damien Kay MD Primary Care Provider [phone] Encounter Details Date Type Department Care Team (Late st Contact Info) Description 06/14/2024 Lab Requisition [facility] - Main Lab [address] [facility] [place] [address] Damien Kay MD [address] [place] [address] [address] [place], [phone] Hyperlipidemia, unspecified; Sepsis, unspecified organism (CMS/HCC); Unspecified atrial fibrillation (CMS/HCC); Type 2 diabetes mellitus without complications (CMS/HCC); Heart failure, unspecified (CMS/HCC) Social History Tobacco Use Types Packs/Day Years Used Date Smoking Tobacco: Never Assessed Comments Unknown Sex and Gender Information Value Date Recorded Sex Assigned at Not on file Legal Sex Female 9:43 AM EST Gender Identity Not on file Sexual Orientation Not on file documented as of this encounter Plan of Treatment Not on file documented as of this encounter Procedures Procedure Name Priority Date/Time Associated Diagnosis Comments COMPLETE BLOOD COUNT Routine 06/15/2024 8:03 AM EST Hyperlipidemia, unspecified Sepsis, unspecified organism (CMS/HCC) Unspecified atrial fibrillation (CMS/HCC) Type 2 diabetes mellitus without complications (CMS/HCC) Heart failure, unspecified (CMS/HCC) B-TYPE NATRIURETIC PEPTIDE Routine 06/15/2024 8:03 AM EST Hyperlipidemia, unspecified Sepsis, unspecified organism (CMS/HCC) Unspecified atrial fibrillation (CMS/HCC) Type 2 diabetes mellitus without complications (CMS/HCC) Heart failure, unspecified (CMS/HCC) BASIC METABOLIC PANEL Routine 06/15/2024 8:03 AM EST Hyperlipidemia, unspecified Sepsis, unspecified organism (CMS/HCC) Unspecified atrial fibrillation (CMS/HCC) Type 2 diabetes mellitus without complications (CMS/HCC) Heart failure, unspecified (CMS/HCC) documented in this encounter Results * (ABNORMAL) B-type natriuretic peptide (06/15/2024 8:03 AM EST) Pathologist [facility] BNP 561(H) <=100 pcg/mL LAB CHEMISTRY METHOD 06/15/2024 12:40 PM [facility] Blood Venous blood specimen / Unknown Venipuncture / Unknown 06/15/2024 8:03 AM EST 06/15/2024 11:46 AM EST Damien Kay MD LAB BLOOD ORDERABLES Final Resul t [facility] [address] [place] [address], * Basic metabolic panel (06/15/2024 8:03 AM EST) Pathologist [facility] Sodium 140 133 - 145 mmol/L LAB CHEMISTRY METHOD 06/15/2024 12:40 PM [facility] Potassium 3.6 3.5 - 5.5 mmol/L LAB CHEMISTRY METHOD 06/15/2024 12:40 PM [facility] Chloride 105 96 - 110 mmol/L LAB CHEMISTRY METHOD 06/15/2024 12:40 PM [facility] CO2 29 21 - 32 mmol/L LAB CHEMISTRY METHOD 06/15/2024 12:40 PM [facility] Anion Gap 6 3 - 11 LAB CHEMISTRY METHOD 06/15/2024 12:40 PM [facility] Glucose 83 70 - 100 mg/dL LAB CHEMISTRY METHOD 06/15/2024 12:40 PM [facility] BUN 10 5 - 25 mg/dL LAB CHEMISTRY METHOD 06/15/2024 12:40 PM [facility] Creatinine 0.88 0.50 - 1.10 mg/dL LAB CHEMISTRY METHOD 06/15/2024 12:40 PM [facility] eGFR 70 >=60 mL/min/1. 73m2 LAB CHEMISTRY METHOD 06/15/2024 12:40 PM [facility] Comment:Calculation based on the??Chronic Kidney Disease Epidemiology Collaboration (CKD-EPI) equation refit??without adjustment for race. BUN/Creatinine Ratio 11.4 LAB CHEMISTRY METHOD 06/15/2024 12:40 PM [facility] Calcium 8.8 8.5 - 10.5 mg/dL LAB CHEMISTRY METHOD 06/15/2024 12:40 PM [facility] Blood Venous blood specimen / Unknown Venipuncture / Unknown 06/15/2024 8:03 AM EST 06/15/2024 11:15 AM EST us Damien Kay MD LAB BLOOD ORDERABLES Final Resul t [facility] [address] [place] [address], * (ABNORMAL) Complete blood count (06/15/2024 8:03 AM EST) WBC 9.0 4.8 - 10.8 K/mcL LAB HEMETOLOGY METHOD 06/15/2024 12:38 PM [facility] RBC 3.40(L) 3.80 - 4.80 M/mcL LAB HEMETOLOGY METHOD 06/15/2024 12:38 PM [facility] Hemoglobin 8.9(L) 11.5 - 16.0 g/dL LAB HEMETOLOGY METHOD 06/15/2024 12:38 PM [facility] Hematocrit 29.5(L) 35.0 - 47.0 % LAB HEMETOLOGY METHOD 06/15/2024 12:38 PM [facility] MCV 87.8 79.0 - 98.0 FL LAB HEMETOLOGY METHOD 06/15/2024 12:38 PM [facility] MCH 26.5(L) 27.0 - 32.0 pcg LAB HEMETOLOGY METHOD 06/15/2024 12:38 PM [facility] MCHC 30.2(L) 32.0 - 37.0 g/dL LAB HEMETOLOGY METHOD 06/15/2024 12:38 PM [facility] RDW 24.9(H) 11.0 - 15.0 % LAB HEMETOLOGY METHOD 06/15/2024 12:38 PM [facility] Platelets 628(H) 130 - 400 K/mcL LAB HEMETOLOGY METHOD 06/15/2024 12:38 PM [facility] MPV 11.3(H) 7.0 - 11.0 FL LAB HEMETOLOGY METHOD 06/15/2024 12:38 PM [facility] NRBC 0.0 <1.0 % LAB HEMETOLOGY METHOD 06/15/2024 12:38 PM [facility] NRBC Absolute 0.00 <0.10 K/mcL LAB HEMETOLOGY METHOD 06/15/2024 12:38 PM [facility] Blood Venous blood specimen / Unknown Venipuncture / Unknown 06/15/2024 8:03 AM EST 06/15/2024 11:15 AM EST us Damien Kay MD LAB BLOOD ORDERABLES Final Resul t [facility] [address] [place] [address], documented in this encounter Visit Diagnoses Diagnosis Hyperlipidemia, unspecified Sepsis, unspecified organism (CMS/HCC) Unspecified atrial fibrillation (CMS/HCC) Type 2 diabetes mellitus without complications (CMS/[facility]) Heart failure, unspecified (CMS/HCC) Heart failure, unspecified documented in this encounter Care Teams Police Officer Relationship Specialty Start Date End Date Damien Kay MD [address] [place] [address], [phone] PCP - General Family Medicine 04/11/24 documented as of this encounter
--- OUTSIDE RECORDS SUMMARY | 2024-07-07 13:50 | XMS_ITS | Encounter Summary ---
Author Organization [facility] Address [address] [place] [address] Care Team Providers Care Hygiene Teacher Name Role Phone Damien Kay MD Primary Care Provider Encounter Details Date Type Department Care Team (Late st Contact Info) Description 05/04/2024 Lab Requisition [facility] - Main Lab 299 [facility] [place] [address] Damien Kay MD 38 [facility] [address] [place], [address] Pneumonia, unspecified organism; Unspecified atrial fibrillation (CMS/HCC); Unspecified dementia, unspecified severity, without behavioral disturbance, psychotic disturbance, mood disturbance, and anxiety (CMS/HCC); Type 2 diabetes mellitus without complications (CMS/HCC); Heart failure, unspecified (CMS/HCC); Sepsis, unspecified organism (CMS/HCC) Social History Tobacco Use Types Packs/Day [...] Associated Diagnosis Comments COMPLETE BLOOD COUNT Routine 05/04/2024 7:19 AM EST Pneumonia, unspecified organism Unspecified atrial fibrillation (CMS/HCC) Unspecified dementia, unspecified severity, without behavioral disturbance, psychotic disturbance, mood disturbance, and anxiety (CMS/HCC) Type 2 diabetes mellitus without complications (CMS/HCC) Heart failure, unspecified (CMS/HCC) Sepsis, unspecified organism (CMS/HCC) BASIC METABOLIC PANEL Routine 05/04/2024 7:19 AM EST Pneumonia, unspecified organism Unspecified atrial fibrillation (CMS/HCC) Unspecified dementia, unspecified severity, without behavioral disturbance, psychotic disturbance, mood disturbance, and anxiety ([facility]/HCC) Type 2 diabetes mellitus without complications ([facility]/HCC) Heart failure, unspecified ([facility]/HCC) Sepsis, unspecified organism ([facility]/HCC) documented in this encounter Results * (ABNORMAL) Basic metabolic panel (05/04/2024 7:19 AM EST) Sodium 139 133 - 145 mmol/L LAB CHEMISTRY METHOD 05/04/2024 11:33 AM [facility] Potassium 4.2 3.5 - 5.5 mmol/L LAB CHEMISTRY METHOD 05/04/2024 11:33 AM [facility] Chloride 103 96 - 110 mmol/L LAB CHEMISTRY METHOD 05/04/2024 11:33 AM [facility] CO2 27 21 - 32 mmol/L LAB CHEMISTRY METHOD 05/04/2024 11:33 AM [facility] Anion Gap 9 3 - 11 LAB CHEMISTRY METHOD 05/04/2024 11:33 AM [facility] Glucose 101(H) 70 - 100 mg/dL LAB CHEMISTRY METHOD 05/04/2024 11:33 AM [facility] BUN 24 5 - 25 mg/dL LAB CHEMISTRY METHOD 05/04/2024 11:33 AM [facility] Creatinine 1.39(H) 0.50 - 1.10 mg/dL LAB CHEMISTRY METHOD 05/04/2024 11:33 AM [facility] eGFR 40(L) >=60 mL/min/1. 73m2 LAB CHEMISTRY METHOD 05/04/2024 11:33 AM [facility] Comment:Calculation based on the??Chronic Kidney Disease Epidemiology Collaboration (CKD-EPI) equation refit??without adjustment for race. BUN/Creatinine Ratio 17.3 LAB CHEMISTRY METHOD 05/04/2024 11:33 AM [facility] Calcium 9.3 8.5 - 10.5 mg/dL LAB CHEMISTRY METHOD 05/04/2024 11:33 AM EST [facility] Blood Venous blood specimen / Unknown Venipuncture / Unknown 05/04/2024 7:19 AM EST 05/04/2024 9:56 AM EST us Damien Kay MD LAB BLOOD ORDERABLES Final Resul t [facility] [address] [place] [address], [place] [phone] * (ABNORMAL) Complete blood count (05/04/2024 7:19 AM EST) WBC 9.5 4.8 - 10.8 K/mcL LAB HEMETOLOGY METHOD 05/04/2024 10:45 AM [facility] RBC 3.80 3.80 - 4.80 M/mcL LAB HEMETOLOGY METHOD 05/04/2024 10:45 AM [facility] Hemoglobin 9.7(L) 11.5 - 16.0 g/dL LAB HEMETOLOGY METHOD 05/04/2024 10:45 AM [facility] Hematocrit 32.1(L) 35.0 - 47.0 % LAB HEMETOLOGY METHOD 05/04/2024 10:45 AM [facility] MCV 84.7 79.0 - 98.0 FL LAB HEMETOLOGY METHOD 05/04/2024 10:45 AM [facility] MCH 25.6(L) 27.0 - 32.0 pcg LAB HEMETOLOGY METHOD 05/04/2024 10:45 AM [facility] MCHC 30.2(L) 32.0 - 37.0 g/dL LAB HEMETOLOGY METHOD 05/04/2024 10:45 AM [facility] RDW 18.4(H) 11.0 - 15.0 % LAB HEMETOLOGY METHOD 05/04/2024 10:45 AM EST [facility] Platelets 477(H) 130 - 400 K/mcL LAB HEMETOLOGY METHOD 05/04/2024 10:45 AM EST [facility] MPV 10.5 7.0 - 11.0 FL LAB HEMETOLOGY METHOD 05/04/2024 10:45 AM EST [facility] NRBC 0.0 <1.0 % LAB HEMETOLOGY METHOD 05/04/2024 10:45 AM EST [facility] NRBC Absolute 0.00 <0.10 K/mcL LAB HEMETOLOGY METHOD 05/04/2024 10:45 AM EST [facility] Blood Venous blood specimen / Unknown Venipuncture / Unknown 05/04/2024 7:19 AM EST 05/04/2024 9:56 AM EST us Damien Kay MD LAB BLOOD ORDERABLES Final Resul t [facility] [address] [place] [address], documented in this encounter Visit Diagnoses Diagnosis Pneumonia, unspecified organism Unspecified atrial fibrillation (CMS/HCC) Unspecified dementia, unspecified severity, without behavioral disturbance, psychotic disturbance, mood disturbance, and anxiety (CMS/HCC) Type 2 diabetes mellitus without complications (CMS/HCC) Heart failure, unspecified (CMS/HCC) Heart failure, unspecified Sepsis, unspecified organism (CMS/HCC) documented in this encounter Care Teams Hygiene Teacher Relationship Specialty Start Date End Date Damien Kay MD [address] [place] [address], [phone] PCP - General Family Medicine 04/11/24 documented as of this encounter
--- OUTSIDE RECORDS SUMMARY | 2024-07-07 13:50 | XMS_ITS | Encounter Summary ---
Author Organization [facility] Address [address] [place] [address] Care Team Providers Care Metal Refiner Name Role Phone Damien Kay MD Primary Care Provider [phone] Encounter Details Date Type Department Care Team (Late st Contact Info) Description 04/29/2024 Lab Requisition [facility] - Main Lab [address] [place] [address] Damien Kay MD 38 [facility] [address] [place], [address] Type 2 diabetes mellitus without complications (CMS/HCC) Social History Tobacco Use Types Packs/Day [...] Procedure Name Priority Date/Time Associated Diagnosis Comments CBC WITH AUTO DIFFERENTIAL Routine 05/02/2024 5:51 AM EST Type 2 diabetes mellitus without complications (CMS/HCC) CBC AND DIFFERENTIAL Routine 05/02/2024 5:51 AM EST Type 2 diabetes mellitus without complications (CMS/HCC) COMPREHENSIVE METABOLIC PANEL Routine 05/02/2024 5:51 AM EST Type 2 diabetes mellitus without complications (CMS/HCC) documented in this encounter Results * (ABNORMAL) CBC auto differential (05/02/2024 5:51 AM EST) WBC 10.8 4.8 - 10.8 K/mcL LAB HEMETOLOGY METHOD 05/02/2024 10:43 AM [facility] RBC 3.60(L) 3.80 - 4.80 M/mcL LAB HEMETOLOGY METHOD 05/02/2024 10:43 AM [facility] Hemoglobin 9.2(L) 11.5 - 16.0 g/dL LAB HEMETOLOGY METHOD 05/02/2024 10:43 AM [facility] Hematocrit 30.4(L) 35.0 - 47.0 % LAB HEMETOLOGY METHOD 05/02/2024 10:43 AM [facility] MCV 85.2 79.0 - 98.0 FL LAB HEMETOLOGY METHOD 05/02/2024 10:43 AM [facility] MCH 25.8(L) 27.0 - 32.0 pcg LAB HEMETOLOGY METHOD 05/02/2024 10:43 AM [facility] MCHC 30.3(L) 32.0 - 37.0 g/dL LAB HEMETOLOGY METHOD 05/02/2024 10:43 AM [facility] RDW 17.8(H) 11.0 - 15.0 % LAB HEMETOLOGY METHOD 05/02/2024 10:43 AM [facility] Platelets 454(H) 130 - 400 K/mcL LAB HEMETOLOGY METHOD 05/02/2024 10:43 AM [facility] MPV 10.9 7.0 - 11.0 FL LAB HEMETOLOGY METHOD 05/02/2024 10:43 AM [facility] NRBC 0.0 <1.0 % LAB HEMETOLOGY METHOD 05/02/2024 10:43 AM [facility] NRBC Absolute 0.00 <0.10 K/mcL LAB HEMETOLOGY METHOD 05/02/2024 10:43 AM [facility] Neutrophils Relative 70.8 % LAB HEMETOLOGY METHOD 05/02/2024 10:43 AM [facility] Lymphocytes Relative 14.5 % LAB HEMETOLOGY METHOD 05/02/2024 10:43 AM [facility] Monocytes Relative 9.1 % LAB HEMETOLOGY METHOD 05/02/2024 10:43 AM [facility] Eosinophils Relative 4.4 % LAB HEMETOLOGY METHOD 05/02/2024 10:43 AM [facility] Basophils Relative 0.9 % LAB HEMETOLOGY METHOD 05/02/2024 10:43 AM [facility] Immature Granulocytes Relative 0.3 % LAB HEMETOLOGY METHOD 05/02/2024 10:43 AM [facility] Neutrophils Absolute 7.65(H) 1.50 - 7.00 K/mcL LAB HEMETOLOGY METHOD 05/02/2024 10:43 AM [facility] Lymphocytes Absolute 1.57 1.00 - 5.00 K/mcL LAB HEMETOLOGY METHOD 05/02/2024 10:43 AM [facility] Monocytes Absolute 0.99 0.20 - 1.00 K/mcL LAB HEMETOLOGY METHOD 05/02/2024 10:43 AM [facility] Eosinophils Absolute 0.48 0.00 - 0.50 K/mcL LAB HEMETOLOGY METHOD 05/02/2024 10:43 AM [facility] Basophils Absolute 0.10 0.00 - 0.20 K/mcL LAB HEMETOLOGY METHOD 05/02/2024 10:43 AM [facility] Immature Granulocytes Absolute 0.03 0.00 - 0.03 K/mcL LAB HEMETOLOGY METHOD 05/02/2024 10:43 AM [facility] Blood Venous blood specimen / Unknown Venipuncture / Unknown 05/02/2024 5:51 AM EST 05/02/2024 10:24 AM EST Damien Kay MD LAB BLOOD ORDERABLES Final Resul t [facility] [address] [place] [address], * (ABNORMAL) Comprehensive metabolic panel (05/02/2024 5:51 AM EST) Sodium 136 133 - 145 mmol/L LAB CHEMISTRY METHOD 05/02/2024 1:07 PM [facility] Potassium 3.5 3.5 - 5.5 mmol/L LAB CHEMISTRY METHOD 05/02/2024 1:07 PM [facility] Chloride 101 96 - 110 mmol/L LAB CHEMISTRY METHOD 05/02/2024 1:07 PM [facility] CO2 23 21 - 32 mmol/L LAB CHEMISTRY METHOD 05/02/2024 1:07 PM [facility] Anion Gap 12(H) 3 - 11 LAB CHEMISTRY METHOD 05/02/2024 1:07 PM [facility] Glucose 96 70 - 100 mg/dL LAB CHEMISTRY METHOD 05/02/2024 1:07 PM [facility] BUN 23 5 - 25 mg/dL LAB CHEMISTRY METHOD 05/02/2024 1:07 PM [facility] Creatinine 1.38(H) 0.50 - 1.10 mg/dL LAB CHEMISTRY METHOD 05/02/2024 1:07 PM [facility] eGFR 41(L) >=60 mL/min/1. 73m2 LAB CHEMISTRY METHOD 05/02/2024 1:07 PM [facility] Comment:Calculation based on the??Chronic Kidney Disease Epidemiology Collaboration (CKD-EPI) equation refit??without adjustment for race. BUN/Creatinine Ratio 16.7 LAB CHEMISTRY METHOD 05/02/2024 1:07 PM [facility] Calcium 9.2 8.5 - 10.5 mg/dL LAB CHEMISTRY METHOD 05/02/2024 1:07 PM EST [facility] AST (SGOT) 30 10 - 42 unit/L LAB CHEMISTRY METHOD 05/02/2024 1:07 PM [facility] ALT (SGPT) 29 10 - 60 unit/L LAB CHEMISTRY METHOD 05/02/2024 1:07 PM [facility] Alkaline Phosphatase 68 42 - 121 unit/L LAB CHEMISTRY METHOD 05/02/2024 1:07 PM [facility] Total Protein 5.7(L) 6.0 - 8.0 g/dL LAB CHEMISTRY METHOD 05/02/2024 1:07 PM [facility] Albumin 2.4(L) 3.2 - 5.0 g/dL LAB CHEMISTRY METHOD 05/02/2024 1:07 PM [facility] Total Bilirubin 0.4 0.0 - 1.4 mg/dL LAB CHEMISTRY METHOD 05/02/2024 1:07 PM [facility] Blood Venous blood specimen / Unknown Venipuncture / Unknown 05/02/2024 5:51 AM EST 05/02/2024 10:26 AM EST us Damien Kay MD LAB BLOOD ORDERABLES Final Resul t [facility] [address] [place] [address], documented in this encounter Visit Diagnoses Diagnosis Type 2 diabetes mellitus without complications (CMS/HCC) documented in this encounter Care Teams Metal Refiner Relationship Specialty Start Date End Date Damien Kay MD [address] [place] [address] [address] [place], [phone] PCP - General Family Medicine 04/11/24 documented as of this encounter
--- OUTSIDE RECORDS SUMMARY | 2024-07-07 13:50 | XMS_ITS | Encounter Summary ---
Author Organization [facility] Address [address] [place] [address] Care Team Providers Care Commercial Real Estate Paralegal Name Role Phone Damien Kay MD Primary Care Provider [phone] Encounter Details Date Type Department Care Team (Late st Contact Info) Description 05/07/2024 Lab Requisition [facility] - Main Lab [address] [place] [address] Damien Kay MD 38 [facility] [address] [place], [address] Type 2 diabetes mellitus without complications [...] Diagnosis Comments CBC WITH AUTO DIFFERENTIAL Routine 05/09/2024 4:44 AM EST Type 2 diabetes mellitus without complications (CMS/HCC) CBC AND DIFFERENTIAL Routine 05/09/2024 4:44 AM EST Type 2 diabetes mellitus without complications (CMS/HCC) COMPREHENSIVE METABOLIC PANEL Routine 05/09/2024 4:44 AM EST Type 2 diabetes mellitus without complications (CMS/HCC) documented in this encounter Results * (ABNORMAL) CBC auto differential (05/09/2024 4:44 AM EST) WBC 8.6 4.8 - 10.8 K/mcL LAB HEMETOLOGY METHOD 05/09/2024 9:43 AM [facility] RBC 3.80 3.80 - 4.80 M/mcL LAB HEMETOLOGY METHOD 05/09/2024 9:43 AM [facility] Hemoglobin 9.6(L) 11.5 - 16.0 g/dL LAB HEMETOLOGY METHOD 05/09/2024 9:43 AM [facility] Hematocrit 32.0(L) 35.0 - 47.0 % LAB HEMETOLOGY METHOD 05/09/2024 9:43 AM [facility] MCV 84.2 79.0 - 98.0 FL LAB HEMETOLOGY METHOD 05/09/2024 9:43 AM [facility] MCH 25.3(L) 27.0 - 32.0 pcg LAB HEMETOLOGY METHOD 05/09/2024 9:43 AM [facility] MCHC 30.0(L) 32.0 - 37.0 g/dL LAB HEMETOLOGY METHOD 05/09/2024 9:43 AM [facility] RDW 18.6(H) 11.0 - 15.0 % LAB HEMETOLOGY METHOD 05/09/2024 9:43 AM [facility] Platelets 604(H) 130 - 400 K/mcL LAB HEMETOLOGY METHOD 05/09/2024 9:43 AM [facility] MPV 10.4 7.0 - 11.0 FL LAB HEMETOLOGY METHOD 05/09/2024 9:43 AM [facility] NRBC 0.0 <1.0 % LAB HEMETOLOGY METHOD 05/09/2024 9:43 AM [facility] NRBC Absolute 0.00 <0.10 K/mcL LAB HEMETOLOGY METHOD 05/09/2024 9:43 AM [facility] Neutrophils Relative 68.9 % LAB HEMETOLOGY METHOD 05/09/2024 9:43 AM [facility] Lymphocytes Relative 14.8 % LAB HEMETOLOGY METHOD 05/09/2024 9:43 AM [facility] Monocytes Relative 8.9 % LAB HEMETOLOGY METHOD 05/09/2024 9:43 AM [facility] Eosinophils Relative 5.9 % LAB HEMETOLOGY METHOD 05/09/2024 9:43 AM [facility] Basophils Relative 1.0 % LAB HEMETOLOGY METHOD 05/09/2024 9:43 AM [facility] Immature Granulocytes Relative 0.5 % LAB HEMETOLOGY METHOD 05/09/2024 9:43 AM [facility] Neutrophils Absolute 5.95 1.50 - 7.00 K/mcL LAB HEMETOLOGY METHOD 05/09/2024 9:43 AM [facility] Lymphocytes Absolute 1.28 1.00 - 5.00 K/mcL LAB HEMETOLOGY METHOD 05/09/2024 9:43 AM [facility] Monocytes Absolute 0.77 0.20 - 1.00 K/mcL LAB HEMETOLOGY METHOD 05/09/2024 9:43 AM [facility] Eosinophils Absolute 0.51(H) 0.00 - 0.50 K/mcL LAB HEMETOLOGY METHOD 05/09/2024 9:43 AM [facility] Basophils Absolute 0.09 0.00 - 0.20 K/mcL LAB HEMETOLOGY METHOD 05/09/2024 9:43 AM [facility] Immature Granulocytes Absolute 0.04(H) 0.00 - 0.03 K/mcL LAB HEMETOLOGY METHOD 05/09/2024 9:43 AM [facility] Blood Venous blood specimen / Unknown Venipuncture / Unknown 05/09/2024 4:44 AM EST 05/09/2024 9:34 AM EST Damien Kay MD LAB BLOOD ORDERABLES Final Resul t [facility] [address] [place] [address], * (ABNORMAL) Comprehensive metabolic panel (05/09/2024 4:44 AM EST) Sodium 134 133 - 145 mmol/L LAB CHEMISTRY METHOD 05/09/2024 10:12 AM [facility] Potassium 3.7 3.5 - 5.5 mmol/L LAB CHEMISTRY METHOD 05/09/2024 10:12 AM [facility] Chloride 97 96 - 110 mmol/L LAB CHEMISTRY METHOD 05/09/2024 10:12 AM [facility] CO2 29 21 - 32 mmol/L LAB CHEMISTRY METHOD 05/09/2024 10:12 AM [facility] Anion Gap 8 3 - 11 LAB CHEMISTRY METHOD 05/09/2024 10:12 AM [facility] Glucose 84 70 - 100 mg/dL LAB CHEMISTRY METHOD 05/09/2024 10:12 AM [facility] BUN 23 5 - 25 mg/dL LAB CHEMISTRY METHOD 05/09/2024 10:12 AM [facility] Creatinine 1.28(H) 0.50 - 1.10 mg/dL LAB CHEMISTRY METHOD 05/09/2024 10:12 AM [facility] eGFR 45(L) >=60 mL/min/1. 73m2 LAB CHEMISTRY METHOD 05/09/2024 10:12 AM [facility] Comment:Calculation based on the??Chronic Kidney Disease Epidemiology Collaboration (CKD-EPI) equation refit??without adjustment for race. BUN/Creatinine Ratio 18.0 LAB CHEMISTRY METHOD 05/09/2024 10:12 AM [facility] Calcium 8.9 8.5 - 10.5 mg/dL LAB CHEMISTRY METHOD 05/09/2024 10:12 AM [facility] AST (SGOT) 22 10 - 42 unit/L LAB CHEMISTRY METHOD 05/09/2024 10:12 AM [facility] ALT (SGPT) 20 10 - 60 unit/L LAB CHEMISTRY METHOD 05/09/2024 10:12 AM [facility] Alkaline Phosphatase 72 42 - 121 unit/L LAB CHEMISTRY METHOD 05/09/2024 10:12 AM [facility] Total Protein 6.0 6.0 - 8.0 g/dL LAB CHEMISTRY METHOD 05/09/2024 10:12 AM [facility] Albumin 2.4(L) 3.2 - 5.0 g/dL LAB CHEMISTRY METHOD 05/09/2024 10:12 AM [facility] Total Bilirubin 0.4 0.0 - 1.4 mg/dL LAB CHEMISTRY METHOD 05/09/2024 10:12 AM [facility] Blood Venous blood specimen / Unknown Venipuncture / Unknown 05/09/2024 4:44 AM EST 05/09/2024 9:34 AM EST us Damien Kay MD LAB BLOOD ORDERABLES Final Resul t [facility] [address] [place] [address], documented in this encounter Visit Diagnoses Diagnosis Type 2 diabetes mellitus without complications (CMS/HCC) documented in this encounter Care Teams Commercial Real Estate Paralegal Relationship Specialty Start Date End Date Damien Kay MD [address] [place] [address], [phone] PCP - General Family Medicine 04/11/24 documented as of this encounter
--- OUTSIDE RECORDS SUMMARY | 2024-07-07 13:50 | XMS_ITS | Encounter Summary ---
Author Organization [facility] Address [address] [place] [address] Care Team Providers Care Sound Technician Name Role Phone Damien Kay MD Primary Care Provider [phone] Encounter Details Date Type Department Care Team (Late st Contact Info) Description 05/14/2024 Lab Requisition [facility] - Main Lab 299 [facility] [place] [address] Damien Kay MD 38 [facility] [address] [place], [address] Type 2 diabetes mellitus without complications [...] Diagnosis Comments CBC WITH AUTO DIFFERENTIAL Routine 05/16/2024 4:53 AM EST Type 2 diabetes mellitus without complications (CMS/HCC) CBC AND DIFFERENTIAL Routine 05/16/2024 4:53 AM EST Type 2 diabetes mellitus without complications (CMS/HCC) COMPREHENSIVE METABOLIC PANEL Routine 05/16/2024 4:53 AM EST Type 2 diabetes mellitus without complications (CMS/HCC) documented in this encounter Results * (ABNORMAL) CBC auto differential (05/16/2024 4:53 AM EST) WBC 11.2(H) 4.8 - 10.8 K/[facility] LAB HEMETOLOGY METHOD 05/16/2024 9:23 AM [facility] LAB RBC 3.90 3.80 - 4.80 M/mcL LAB HEMETOLOGY METHOD 05/16/2024 9:23 AM [facility] LAB Hemoglobin 9.9(L) 11.5 - 16.0 g/dL LAB HEMETOLOGY METHOD 05/16/2024 9:23 AM [facility] LAB Hematocrit 33.8(L) 35.0 - 47.0 % LAB HEMETOLOGY METHOD 05/16/2024 9:23 AM [facility] LAB MCV 87.8 79.0 - 98.0 FL LAB HEMETOLOGY METHOD 05/16/2024 9:23 AM [facility] LAB MCH 25.7(L) 27.0 - 32.0 pcg LAB HEMETOLOGY METHOD 05/16/2024 9:23 AM [facility] LAB MCHC 29.3(L) 32.0 - 37.0 g/dL LAB HEMETOLOGY METHOD 05/16/2024 9:23 AM [facility] LAB RDW 19.8(H) 11.0 - 15.0 % LAB HEMETOLOGY METHOD 05/16/2024 9:23 AM [facility] LAB Platelets 729(H) 130 - 400 K/mcL LAB HEMETOLOGY METHOD 05/16/2024 9:23 AM [facility] LAB MPV 10.7 7.0 - 11.0 FL LAB HEMETOLOGY METHOD 05/16/2024 9:23 AM [facility] LAB NRBC 0.0 <1.0 % LAB HEMETOLOGY METHOD 05/16/2024 9:23 AM [facility] LAB NRBC Absolute 0.00 <0.10 K/mcL LAB HEMETOLOGY METHOD 05/16/2024 9:23 AM [facility] LAB Neutrophils Relative 71.2 % LAB HEMETOLOGY METHOD 05/16/2024 9:23 AM [facility] Lymphocytes Relative 16.4 % LAB HEMETOLOGY METHOD 05/16/2024 9:23 AM [facility] Monocytes Relative 8.1 % LAB HEMETOLOGY METHOD 05/16/2024 9:23 AM [facility] LAB Eosinophils Relative 2.3 % LAB HEMETOLOGY METHOD 05/16/2024 9:23 AM [facility] LAB Basophils Relative 1.2 % LAB HEMETOLOGY METHOD 05/16/2024 9:23 AM [facility] LAB Immature Granulocytes Relative 0.8 % LAB HEMETOLOGY METHOD 05/16/2024 9:23 AM [facility] LAB Neutrophils Absolute 7.95(H) 1.50 - 7.00 K/mcL LAB HEMETOLOGY METHOD 05/16/2024 9:23 AM [facility] LAB Lymphocytes Absolute 1.83 1.00 - 5.00 K/mcL LAB HEMETOLOGY METHOD 05/16/2024 9:23 AM [facility] LAB Monocytes Absolute 0.91 0.20 - 1.00 K/mcL LAB HEMETOLOGY METHOD 05/16/2024 9:23 AM [facility] LAB Eosinophils Absolute 0.26 0.00 - 0.50 K/mcL LAB HEMETOLOGY METHOD 05/16/2024 9:23 AM [facility] LAB Basophils Absolute 0.13 0.00 - 0.20 K/mcL LAB HEMETOLOGY METHOD 05/16/2024 9:23 AM [facility] LAB Immature Granulocytes Absolute 0.09(H) 0.00 - 0.03 K/mcL LAB HEMETOLOGY METHOD 05/16/2024 9:23 AM [facility] LAB Blood Venous blood specimen / Unknown Venipuncture / Unknown 05/16/2024 4:53 AM EST 05/16/2024 8:29 AM EST Damien Kay MD LAB BLOOD ORDERABLES Final Resul t [facility] [address] [place] [address], * (ABNORMAL) Comprehensive metabolic panel (05/16/2024 4:53 AM EST) Sodium 135 133 - 145 mmol/L LAB CHEMISTRY METHOD 05/16/2024 9:46 AM [facility] LAB Potassium 4.0 3.5 - 5.5 mmol/L LAB CHEMISTRY METHOD 05/16/2024 9:46 AM [facility] LAB Chloride 100 96 - 110 mmol/L LAB CHEMISTRY METHOD 05/16/2024 9:46 AM [facility] LAB CO2 24 21 - 32 mmol/L LAB CHEMISTRY METHOD 05/16/2024 9:46 AM [facility] LAB Anion Gap 11 3 - 11 LAB CHEMISTRY METHOD 05/16/2024 9:46 AM [facility] LAB Glucose 87 70 - 100 mg/dL LAB CHEMISTRY METHOD 05/16/2024 9:46 AM [facility] BUN 47(H) 5 - 25 mg/dL LAB CHEMISTRY METHOD 05/16/2024 9:46 AM [facility] LAB Creatinine 2.14(H) 0.50 - 1.10 mg/dL LAB CHEMISTRY METHOD 05/16/2024 9:46 AM [facility] LAB eGFR 24(L) >=60 mL/min/1. 73m2 LAB CHEMISTRY METHOD 05/16/2024 9:46 AM [facility] LAB Comment:Calculation based on the??Chronic Kidney Disease Epidemiology Collaboration (CKD-EPI) equation refit??without adjustment for race. BUN/Creatinine Ratio 22.0 LAB CHEMISTRY METHOD 05/16/2024 9:46 AM [facility] LAB Calcium 8.8 8.5 - 10.5 mg/dL LAB CHEMISTRY METHOD 05/16/2024 9:46 AM [facility] LAB AST (SGOT) 31 10 - 42 unit/L LAB CHEMISTRY METHOD 05/16/2024 9:46 AM [facility] ALT (SGPT) 22 10 - 60 unit/L LAB CHEMISTRY METHOD 05/16/2024 9:46 AM [facility] Alkaline Phosphatase 76 42 - 121 unit/L LAB CHEMISTRY METHOD 05/16/2024 9:46 AM [facility] Total Protein 6.2 6.0 - 8.0 g/dL LAB CHEMISTRY METHOD 05/16/2024 9:46 AM [facility] Albumin 2.2(L) 3.2 - 5.0 g/dL LAB CHEMISTRY METHOD 05/16/2024 9:46 AM [facility] Total Bilirubin 0.2 0.0 - 1.4 mg/dL LAB CHEMISTRY METHOD 05/16/2024 9:46 AM [facility] LAB Blood Venous blood specimen / Unknown Venipuncture / Unknown 05/16/2024 4:53 AM EST 05/16/2024 8:29 AM EST us Damien Kay MD LAB BLOOD ORDERABLES Final Resul t [facility] [address] [place] [address], documented in this encounter Visit Diagnoses Diagnosis Type 2 diabetes mellitus without complications (CMS/HCC) documented in this encounter Care Teams Sound Technician Relationship Specialty Start Date End Date Damien Kay MD [address] [place] [address] [address] [place], [phone] PCP - General Family Medicine 04/11/24 documented as of this encounter
--- OUTSIDE RECORDS SUMMARY | 2024-07-07 13:50 | XMS_ITS | Encounter Summary ---
Author Organization [facility] Address [address] [place] [address] Care Team Providers Care Chha Name Role Phone Damien Kay MD Primary Care Provider [phone] Encounter Details Date Type Department Care Team (Late st Contact Info) Description 05/17/2024 Lab Requisition [facility] - Main Lab 299 [facility] [place] [address] Damien Kay MD 38 [facility] [address] [place], [address] Unspecified atrial fibrillation (CMS/HCC); Type 2 diabetes [...] Associated Diagnosis Comments COMPLETE BLOOD COUNT Routine 05/19/2024 5:53 AM EST Unspecified atrial fibrillation (CMS/HCC) Type 2 diabetes mellitus without complications (CMS/HCC) Heart failure, unspecified (CMS/HCC) BASIC METABOLIC PANEL Routine 05/19/2024 5:53 AM EST Unspecified atrial fibrillation (CMS/HCC) Type 2 diabetes mellitus without complications (CMS/HCC) Heart failure, unspecified (CMS/HCC) documented in this encounter Results * (ABNORMAL) Basic metabolic panel (05/19/2024 5:53 AM EST) Sodium 136 133 - 145 mmol/L LAB CHEMISTRY METHOD 05/19/2024 11:23 AM [facility] Potassium 4.1 3.5 - 5.5 mmol/L LAB CHEMISTRY METHOD 05/19/2024 11:23 AM [facility] LAB Chloride 102 96 - 110 mmol/L LAB CHEMISTRY METHOD 05/19/2024 11:23 AM [facility] LAB CO2 23 21 - 32 mmol/L LAB CHEMISTRY METHOD 05/19/2024 11:23 AM [facility] LAB Anion Gap 11 3 - 11 LAB CHEMISTRY METHOD 05/19/2024 11:23 AM [facility] LAB Glucose 81 70 - 100 mg/dL LAB CHEMISTRY METHOD 05/19/2024 11:23 AM [facility] BUN 57(H) 5 - 25 mg/dL LAB CHEMISTRY METHOD 05/19/2024 11:23 AM [facility] Creatinine 2.71(H) 0.50 - 1.10 mg/dL LAB CHEMISTRY METHOD 05/19/2024 11:23 AM [facility] LAB eGFR 18(L) >=60 mL/min/1. 73m2 LAB CHEMISTRY METHOD 05/19/2024 11:23 AM [facility] LAB Comment:Calculation based on the??Chronic Kidney Disease Epidemiology Collaboration (CKD-EPI) equation refit??without adjustment for race. BUN/Creatinine Ratio 21.0 LAB CHEMISTRY METHOD 05/19/2024 11:23 AM [facility] LAB Calcium 8.9 8.5 - 10.5 mg/dL LAB CHEMISTRY METHOD 05/19/2024 11:23 AM [facility] LAB Blood Venous blood specimen / Unknown Venipuncture / Unknown 05/19/2024 5:53 AM EST 05/19/2024 9:36 AM EST us Damien Kay MD LAB BLOOD ORDERABLES Final Resul t [facility] [address] [place] [address], * (ABNORMAL) Complete blood count (05/19/2024 5:53 AM EST) [facility] WBC 10.7 4.8 - 10.8 K/mcL LAB HEMETOLOGY METHOD 05/19/2024 10:51 AM [facility] LAB RBC 3.70(L) 3.80 - 4.80 M/mcL LAB HEMETOLOGY METHOD 05/19/2024 10:51 AM [facility] LAB Hemoglobin 9.5(L) 11.5 - 16.0 g/dL LAB HEMETOLOGY METHOD 05/19/2024 10:51 AM [facility] LAB Hematocrit 31.8(L) 35.0 - 47.0 % LAB HEMETOLOGY METHOD 05/19/2024 10:51 AM [facility] LAB MCV 85.3 79.0 - 98.0 FL LAB HEMETOLOGY METHOD 05/19/2024 10:51 AM [facility] LAB MCH 25.5(L) 27.0 - 32.0 pcg LAB HEMETOLOGY METHOD 05/19/2024 10:51 AM [facility] LAB MCHC 29.9(L) 32.0 - 37.0 g/dL LAB HEMETOLOGY METHOD 05/19/2024 10:51 AM [facility] LAB RDW 19.5(H) 11.0 - 15.0 % LAB HEMETOLOGY METHOD 05/19/2024 10:51 AM [facility] LAB Platelets 668(H) 130 - 400 K/mcL LAB HEMETOLOGY METHOD 05/19/2024 10:51 AM [facility] LAB MPV 11.2(H) 7.0 - 11.0 FL LAB HEMETOLOGY METHOD 05/19/2024 10:51 AM [facility] LAB NRBC 0.0 <1.0 % LAB HEMETOLOGY METHOD 05/19/2024 10:51 AM EST [facility] LAB NRBC Absolute 0.00 <0.10 K/mcL LAB HEMETOLOGY METHOD 05/19/2024 10:51 AM EST [facility] LAB Blood Venous blood specimen / Unknown Venipuncture / Unknown 05/19/2024 5:53 AM EST 05/19/2024 9:37 AM EST us Damien Kay MD LAB BLOOD ORDERABLES Final Resul t [facility]) [facility] [address] [place] [address], documented in this encounter Visit Diagnoses Diagnosis Unspecified atrial fibrillation (CMS/HCC) Type 2 diabetes mellitus without complications (CMS/HCC) Heart failure, unspecified (CMS/HCC) Heart failure, unspecified documented in this encounter Care Teams Chha Relationship Specialty Start Date End Date Damien Kay MD [address] [place] [address], [phone] PCP - General Family Medicine 04/11/24 documented as of this encounter
--- OUTSIDE RECORDS SUMMARY | 2024-07-07 13:50 | XMS_ITS | Encounter Summary ---
Author Organization [email or web address] Address [address] [place] [address] Care Team Providers Care Concrete Tester Name Role Phone Damien Kay MD Primary Care Provider [phone] Encounter Details Date Type Department Care Team (Late st Contact Info) Description 06/21/2024 Lab Requisition [facility] - Main Lab 299 [facility] [place] [address] Damien Kay MD [address] [place] [address] [address] [place], [address] Hyperlipidemia, unspecified; Sepsis, unspecified organism (CMS/HCC); Heart failure, unspecified (CMS/HCC) Social History [...] Associated Diagnosis Comments COMPLETE BLOOD COUNT Routine 06/22/2024 5:24 AM EST Hyperlipidemia, unspecified Sepsis, unspecified organism (CMS/HCC) Heart failure, unspecified (CMS/HCC) B-TYPE NATRIURETIC PEPTIDE Routine 06/22/2024 5:24 AM EST Hyperlipidemia, unspecified Sepsis, unspecified organism (CMS/HCC) Heart failure, unspecified (CMS/HCC) BASIC METABOLIC PANEL Routine 06/22/2024 5:24 AM EST Hyperlipidemia, unspecified Sepsis, unspecified organism (CMS/HCC) Heart failure, unspecified (CMS/HCC) documented in this encounter Results * (ABNORMAL) B-type natriuretic peptide (06/22/2024 5:24 AM EST) BNP 911(H) <=100 pcg/mL LAB CHEMISTRY METHOD 06/22/2024 11:17 AM [facility] LAB Blood Venous blood specimen / Unknown Venipuncture / Unknown 06/22/2024 5:24 AM EST 06/22/2024 10:34 AM EST us Damien Kay MD LAB BLOOD ORDERABLES Final Resul t [facility] [address] [place] [address], * (ABNORMAL) Basic metabolic panel (06/22/2024 5:24 AM EST) Sodium 141 133 - 145 mmol/L LAB CHEMISTRY METHOD 06/22/2024 12:30 PM [facility] LAB Potassium 3.1(L) 3.5 - 5.5 mmol/L LAB CHEMISTRY METHOD 06/22/2024 12:30 PM [facility] Chloride 107 96 - 110 mmol/L LAB CHEMISTRY METHOD 06/22/2024 12:30 PM [facility] LAB CO2 25 21 - 32 mmol/L LAB CHEMISTRY METHOD 06/22/2024 12:30 PM [facility] Anion Gap 9 3 - 11 LAB CHEMISTRY METHOD 06/22/2024 12:30 PM [facility] Glucose 82 70 - 100 mg/dL LAB CHEMISTRY METHOD 06/22/2024 12:30 PM [facility] BUN 9 5 - 25 mg/dL LAB CHEMISTRY METHOD 06/22/2024 12:30 PM [facility] Creatinine 0.79 0.50 - 1.10 mg/dL LAB CHEMISTRY METHOD 06/22/2024 12:30 PM [facility] LAB eGFR 80 >=60 mL/min/1. 73m2 LAB CHEMISTRY METHOD 06/22/2024 12:30 PM [facility] LAB Comment:Calculation based on the??Chronic Kidney Disease Epidemiology Collaboration (CKD-EPI) equation refit??without adjustment for race. BUN/Creatinine Ratio 11.4 LAB CHEMISTRY METHOD 06/22/2024 12:30 PM [facility] Calcium 8.5 8.5 - 10.5 mg/dL LAB CHEMISTRY METHOD 06/22/2024 12:30 PM [facility] Blood Venous blood specimen / Unknown Venipuncture / Unknown 06/22/2024 5:24 AM EST 06/22/2024 10:34 AM EST us Damien Kay MD LAB BLOOD ORDERABLES Final Resul t [facility] [address] [place] [address], * (ABNORMAL) Complete blood count (06/22/2024 5:24 AM EST) WBC 7.5 4.8 - 10.8 K/mcL LAB HEMETOLOGY METHOD 06/22/2024 10:58 AM [facility] RBC 2.90(L) 3.80 - 4.80 M/mcL LAB HEMETOLOGY METHOD 06/22/2024 10:58 AM [facility] Hemoglobin 7.7(L) 11.5 - 16.0 g/dL LAB HEMETOLOGY METHOD 06/22/2024 10:58 AM [facility] LAB Hematocrit 24.8(L) 35.0 - 47.0 % LAB HEMETOLOGY METHOD 06/22/2024 10:58 AM [facility] LAB MCV 86.1 79.0 - 98.0 FL LAB HEMETOLOGY METHOD 06/22/2024 10:58 AM [facility] LAB MCH 26.7(L) 27.0 - 32.0 pcg LAB HEMETOLOGY METHOD 06/22/2024 10:58 AM [facility] LAB MCHC 31.0(L) 32.0 - 37.0 g/dL LAB HEMETOLOGY METHOD 06/22/2024 10:58 AM [facility] LAB RDW 25.0(H) 11.0 - 15.0 % LAB HEMETOLOGY METHOD 06/22/2024 10:58 AM [facility] Platelets 447(H) 130 - 400 K/mcL LAB HEMETOLOGY METHOD 06/22/2024 10:58 AM [facility] LAB MPV 11.1(H) 7.0 - 11.0 FL LAB HEMETOLOGY METHOD 06/22/2024 10:58 AM [facility] LAB NRBC 0.0 <1.0 % LAB HEMETOLOGY METHOD 06/22/2024 10:58 AM [facility] LAB NRBC Absolute 0.00 <0.10 K/mcL LAB HEMETOLOGY METHOD 06/22/2024 10:58 AM [facility] Blood Venous blood specimen / Unknown Venipuncture / Unknown 06/22/2024 5:24 AM EST 06/22/2024 10:34 AM EST us Damien Kay MD LAB BLOOD ORDERABLES Final Resul t [facility] [address] [place] [address], documented in this encounter Visit Diagnoses Diagnosis Hyperlipidemia, unspecified Sepsis, unspecified organism (CMS/HCC) Heart failure, unspecified (CMS/HCC) Heart failure, unspecified documented in this encounter Care Teams Concrete Tester Relationship Specialty Start Date End Date Damien Kay MD [address] [place] [address], [phone] PCP - General Family Medicine 04/11/24 documented as of this encounter
--- OUTSIDE RECORDS SUMMARY | 2024-07-07 13:51 | XMS_ITS | Encounter Summary ---
Author Organization [facility] Address [address] [place] [address] Care Team Providers Care Assistant Buyer Name Role Phone Damien Kay MD Primary Care Provider [phone] Encounter Details Date Type Department Care Team (Late st Contact Info) Description 06/07/[address] [facility] - Main Lab 299 [facility] [place] [address] Damien Kay MD [address] [place] [address] [address] [place], [address] Unspecified atrial fibrillation (CMS/HCC); Type 2 [...] Associated Diagnosis Comments COMPLETE BLOOD COUNT Routine 06/08/2024 7:36 AM EST Unspecified atrial fibrillation (CMS/HCC) Type 2 diabetes mellitus without complications (CMS/HCC) Heart failure, unspecified (CMS/HCC) BASIC METABOLIC PANEL Routine 06/08/2024 7:36 AM EST Unspecified atrial fibrillation (CMS/HCC) Type 2 diabetes mellitus without complications (CMS/HCC) Heart failure, unspecified (CMS/HCC) documented in this encounter Results * (ABNORMAL) Basic metabolic panel (06/08/2024 7:36 AM EST) Sodium 141 133 - 145 mmol/L LAB CHEMISTRY METHOD 06/08/2024 2:17 PM [facility] Potassium 3.5 3.5 - 5.5 mmol/L LAB CHEMISTRY METHOD 06/08/2024 2:17 PM [facility] Chloride 108 96 - 110 mmol/L LAB CHEMISTRY METHOD 06/08/2024 2:17 PM [facility] CO2 27 21 - 32 mmol/L LAB CHEMISTRY METHOD 06/08/2024 2:17 PM [facility] Anion Gap 6 3 - 11 LAB CHEMISTRY METHOD 06/08/2024 2:17 PM [facility] Glucose 88 70 - 100 mg/dL LAB CHEMISTRY METHOD 06/08/2024 2:17 PM [facility] BUN 17 5 - 25 mg/dL LAB CHEMISTRY METHOD 06/08/2024 2:17 PM [facility] Creatinine 1.14(H) 0.50 - 1.10 mg/dL LAB CHEMISTRY METHOD 06/08/2024 2:17 PM [facility] eGFR 51(L) >=60 mL/min/1. 73m2 LAB CHEMISTRY METHOD 06/08/2024 2:17 PM [facility] Comment:Calculation based on the??Chronic Kidney Disease Epidemiology Collaboration (CKD-EPI) equation refit??without adjustment for race. BUN/Creatinine Ratio 14.9 LAB CHEMISTRY METHOD 06/08/2024 2:17 PM [facility] Calcium 8.5 8.5 - 10.5 mg/dL LAB CHEMISTRY METHOD 06/08/2024 2:17 PM [facility] Blood Venous blood specimen / Unknown Venipuncture / Unknown 06/08/2024 7:36 AM EST 06/08/2024 11:14 AM EST us Damien Kay MD LAB BLOOD ORDERABLES Final Resul t [facility] [address] [place] [address], * (ABNORMAL) Complete blood count (06/08/2024 7:36 AM EST) [facility] WBC 9.0 4.8 - 10.8 K/mcL LAB HEMETOLOGY METHOD 06/08/2024 11:39 AM [facility] RBC 3.40(L) 3.80 - 4.80 M/mcL LAB HEMETOLOGY METHOD 06/08/2024 11:39 AM [facility] Hemoglobin 8.7(L) 11.5 - 16.0 g/dL LAB HEMETOLOGY METHOD 06/08/2024 11:39 AM [facility] Hematocrit 28.2(L) 35.0 - 47.0 % LAB HEMETOLOGY METHOD 06/08/2024 11:39 AM [facility] MCV 83.7 79.0 - 98.0 FL LAB HEMETOLOGY METHOD 06/08/2024 11:39 AM [facility] MCH 25.8(L) 27.0 - 32.0 pcg LAB HEMETOLOGY METHOD 06/08/2024 11:39 AM [facility] MCHC 30.9(L) 32.0 - 37.0 g/dL LAB HEMETOLOGY METHOD 06/08/2024 11:39 AM [facility] RDW 22.4(H) 11.0 - 15.0 % LAB HEMETOLOGY METHOD 06/08/2024 11:39 AM [facility] Platelets 579(H) 130 - 400 K/mcL LAB HEMETOLOGY METHOD 06/08/2024 11:39 AM [facility] MPV 10.8 7.0 - 11.0 FL LAB HEMETOLOGY METHOD 06/08/2024 11:39 AM [facility] NRBC 0.0 <1.0 % LAB HEMETOLOGY METHOD 06/08/2024 11:39 AM EST [facility] NRBC Absolute 0.00 <0.10 K/[facility] LAB HEMETOLOGY METHOD 06/08/2024 11:39 AM EST [facility] Blood Venous blood specimen / Unknown Venipuncture / Unknown 06/08/2024 7:36 AM EST 06/08/2024 11:14 AM EST us Damien Kay MD LAB BLOOD ORDERABLES Final Resul t [facility] [address] [place] [address], documented in this encounter Visit Diagnoses Diagnosis Unspecified atrial fibrillation (CMS/HCC) Type 2 diabetes mellitus without complications (CMS/HCC) Heart failure, unspecified (CMS/HCC) Heart failure, unspecified documented in this encounter Care Teams Assistant Buyer Relationship Specialty Start Date End Date Damien Kay MD [address] [place] [address], [phone] PCP - General Family Medicine 04/11/24 documented as of this encounter
--- OUTSIDE RECORDS SUMMARY | 2024-07-07 13:51 | XMS_ITS | Encounter Summary ---
Author Organization [facility] Address [address] [place] [address] Care Team Providers Care Support Worker Name Role Phone Damien Kay MD Primary Care Provider [phone] Encounter Details Date Type Department Care Team (Late st Contact Info) Description 04/11/2024 Lab Requisition [facility] - Main Lab [address] [facility] [place] [address] Damien Kay MD [address] [place] [address] [address] [place], [phone] Type 2 diabetes mellitus without complications [...] Diagnosis Comments CBC WITH AUTO DIFFERENTIAL Routine 04/11/2024 6:56 AM EST Type 2 diabetes mellitus without complications (CMS/HCC) CBC AND DIFFERENTIAL Routine 04/11/2024 6:56 AM EST Type 2 diabetes mellitus without complications (CMS/HCC) COMPREHENSIVE METABOLIC PANEL Routine 04/11/2024 6:56 AM EST Type 2 diabetes mellitus without complications (CMS/HCC) documented in this encounter Results * (ABNORMAL) CBC auto differential (04/11/2024 6:56 AM EST) WBC 11.0(H) 4.8 - 10.8 K/[facility] LAB HEMETOLOGY METHOD 04/11/2024 10:44 AM [facility] LAB RBC 3.70(L) 3.80 - 4.80 M/mcL LAB HEMETOLOGY METHOD 04/11/2024 10:44 AM [facility] LAB Hemoglobin 9.5(L) 11.5 - 16.0 g/dL LAB HEMETOLOGY METHOD 04/11/2024 10:44 AM [facility] LAB Hematocrit 33.0(L) 35.0 - 47.0 % LAB HEMETOLOGY METHOD 04/11/2024 10:44 AM [facility] LAB MCV 88.7 79.0 - 98.0 FL LAB HEMETOLOGY METHOD 04/11/2024 10:44 AM [facility] LAB MCH 25.5(L) 27.0 - 32.0 pcg LAB HEMETOLOGY METHOD 04/11/2024 10:44 AM [facility] LAB MCHC 28.8(L) 32.0 - 37.0 g/dL LAB HEMETOLOGY METHOD 04/11/2024 10:44 AM [facility] LAB RDW 17.0(H) 11.0 - 15.0 % LAB HEMETOLOGY METHOD 04/11/2024 10:44 AM [facility] LAB Platelets 469(H) 130 - 400 K/mcL LAB HEMETOLOGY METHOD 04/11/2024 10:44 AM [facility] LAB MPV 11.2(H) 7.0 - 11.0 FL LAB HEMETOLOGY METHOD 04/11/2024 10:44 AM [facility] LAB NRBC 0.0 <1.0 % LAB HEMETOLOGY METHOD 04/11/2024 10:44 AM [facility] LAB NRBC Absolute 0.00 <0.10 K/mcL LAB HEMETOLOGY METHOD 04/11/2024 10:44 AM [facility] LAB Neutrophils Relative 71.8 % LAB HEMETOLOGY METHOD 04/11/2024 10:44 AM [facility] LAB Lymphocytes Relative 17.7 % LAB HEMETOLOGY METHOD 04/11/2024 10:44 AM [facility] LAB Monocytes Relative 8.5 % LAB HEMETOLOGY METHOD 04/11/2024 10:44 AM [facility] LAB Eosinophils Relative 0.9 % LAB HEMETOLOGY METHOD 04/11/2024 10:44 AM [facility] LAB Basophils Relative 0.7 % LAB HEMETOLOGY METHOD 04/11/2024 10:44 AM [facility] LAB Immature Granulocytes Relative 0.4 % LAB HEMETOLOGY METHOD 04/11/2024 10:44 AM [facility] LAB Neutrophils Absolute 7.90(H) 1.50 - 7.00 K/mcL LAB HEMETOLOGY METHOD 04/11/2024 10:44 AM [facility] LAB Lymphocytes Absolute 1.95 1.00 - 5.00 K/mcL LAB HEMETOLOGY METHOD 04/11/2024 10:44 AM [facility] LAB Monocytes Absolute 0.94 0.20 - 1.00 K/mcL LAB HEMETOLOGY METHOD 04/11/2024 10:44 AM [facility] LAB Eosinophils Absolute 0.10 0.00 - 0.50 K/mcL LAB HEMETOLOGY METHOD 04/11/2024 10:44 AM [facility] LAB Basophils Absolute 0.08 0.00 - 0.20 K/mcL LAB HEMETOLOGY METHOD 04/11/2024 10:44 AM [facility] LAB Immature Granulocytes Absolute 0.04(H) 0.00 - 0.03 K/mcL LAB HEMETOLOGY METHOD 04/11/2024 10:44 AM [facility] LAB Blood Venous blood specimen / Unknown Venipuncture / Unknown 04/11/2024 6:56 AM EST 04/11/2024 9:41 AM EST us Damien Kay MD LAB BLOOD ORDERABLES Final Resul t [facility] LAB [address] [place] [address], [place] [phone] * (ABNORMAL) Comprehensive metabolic panel (04/11/2024 6:56 AM EST) Sodium 144 133 - 145 mmol/L LAB CHEMISTRY METHOD 04/11/2024 12:18 PM [facility] LAB Potassium 3.9 3.5 - 5.5 mmol/L LAB CHEMISTRY METHOD 04/11/2024 12:18 PM [facility] LAB Chloride 109 96 - 110 mmol/L LAB CHEMISTRY METHOD 04/11/2024 12:18 PM [facility] LAB CO2 26 21 - 32 mmol/L LAB CHEMISTRY METHOD 04/11/2024 12:18 PM [facility] LAB Anion Gap 9 3 - 11 LAB CHEMISTRY METHOD 04/11/2024 12:18 PM [facility] LAB Glucose 107(H) 70 - 100 mg/dL LAB CHEMISTRY METHOD 04/11/2024 12:18 PM [facility] LAB BUN 19 5 - 25 mg/dL LAB CHEMISTRY METHOD 04/11/2024 12:18 PM [facility] LAB Creatinine 1.13(H) 0.50 - 1.10 mg/dL LAB CHEMISTRY METHOD 04/11/2024 12:18 PM [facility] LAB eGFR 52(L) >=60 mL/min/1. 73m2 LAB CHEMISTRY METHOD 04/11/2024 12:18 PM [facility] LAB Comment:Calculation based on the??Chronic Kidney Disease Epidemiology Collaboration (CKD-EPI) equation refit??without adjustment for race. BUN/Creatinine Ratio 16.8 LAB CHEMISTRY METHOD 04/11/2024 12:18 PM [facility] LAB Calcium 9.5 8.5 - 10.5 mg/dL LAB CHEMISTRY METHOD 04/11/2024 12:18 PM [facility] LAB AST (SGOT) 32 10 - 42 unit/L LAB CHEMISTRY METHOD 04/11/2024 12:18 PM [facility] LAB ALT (SGPT) 25 10 - 60 unit/L LAB CHEMISTRY METHOD 04/11/2024 12:18 PM [facility] LAB Alkaline Phosphatase 72 42 - 121 unit/L LAB CHEMISTRY METHOD 04/11/2024 12:18 PM [facility] LAB Total Protein 5.8(L) 6.0 - 8.0 g/dL LAB CHEMISTRY METHOD 04/11/2024 12:18 PM [facility] LAB Albumin 2.7(L) 3.2 - 5.0 g/dL LAB CHEMISTRY METHOD 04/11/2024 12:18 PM [facility] LAB Total Bilirubin 0.6 0.0 - 1.4 mg/dL LAB CHEMISTRY METHOD 04/11/2024 12:18 PM [facility] LAB Blood Venous blood specimen / Unknown Venipuncture / Unknown 04/11/2024 6:56 AM EST 04/11/2024 9:41 AM EST us Damien Kay MD LAB BLOOD ORDERABLES Final Resul t [facility] [address] [place] [address], documented in this encounter Visit Diagnoses Diagnosis Type 2 diabetes mellitus without complications (CMS/HCC) documented in this encounter Care Teams Support Worker Relationship Specialty Start Date End Date Damien Kay MD [address] [place] [address], [phone] PCP - General Family Medicine 04/11/24 documented as of this encounter
--- OUTSIDE RECORDS SUMMARY | 2024-07-07 13:51 | XMS_ITS | Encounter Summary ---
Author Organization [facility] Address [address] [place] [address] Care Team Providers Care Criminal Justice Faculty Name Role Phone Damien Kay MD Primary Care Provider [phone] Encounter Details Date Type Department Care Team (Late st Contact Info) Description 05/24/2024 Lab Requisition [facility] - Main Lab [address] [facility] [place] [address] Damien Kay MD [address] [place] [address] [address] [place], [phone] Unspecified atrial fibrillation (CMS/HCC); Type 2 [...] Associated Diagnosis Comments COMPLETE BLOOD COUNT Routine 05/25/2024 6:42 AM EST Unspecified atrial fibrillation (CMS/HCC) Type 2 diabetes mellitus without complications (CMS/HCC) Heart failure, unspecified (CMS/HCC) BASIC METABOLIC PANEL Routine 05/25/2024 6:42 AM EST Unspecified atrial fibrillation (CMS/HCC) Type 2 diabetes mellitus without complications (CMS/HCC) Heart failure, unspecified (CMS/HCC) documented in this encounter Results * (ABNORMAL) Basic metabolic panel (05/25/2024 6:42 AM EST) Sodium 139 133 - 145 mmol/L LAB CHEMISTRY METHOD 05/25/2024 11:53 AM [facility] LAB Potassium 4.2 3.5 - 5.5 mmol/L LAB CHEMISTRY METHOD 05/25/2024 11:53 AM [facility] LAB Chloride 106 96 - 110 mmol/L LAB CHEMISTRY METHOD 05/25/2024 11:53 AM [facility] LAB CO2 26 21 - 32 mmol/L LAB CHEMISTRY METHOD 05/25/2024 11:53 AM [facility] LAB Anion Gap 7 3 - 11 LAB CHEMISTRY METHOD 05/25/2024 11:53 AM [facility] LAB Glucose 89 70 - 100 mg/dL LAB CHEMISTRY METHOD 05/25/2024 11:53 AM [facility] LAB BUN 43(H) 5 - 25 mg/dL LAB CHEMISTRY METHOD 05/25/2024 11:53 AM [facility] LAB Creatinine 2.17(H) 0.50 - 1.10 mg/dL LAB CHEMISTRY METHOD 05/25/2024 11:53 AM [facility] LAB eGFR 24(L) >=60 mL/min/1. 73m2 LAB CHEMISTRY METHOD 05/25/2024 11:53 AM [facility] LAB Comment:Calculation based on the??Chronic Kidney Disease Epidemiology Collaboration (CKD-EPI) equation refit??without adjustment for race. BUN/Creatinine Ratio 19.8 LAB CHEMISTRY METHOD 05/25/2024 11:53 AM [facility] LAB Calcium 8.5 8.5 - 10.5 mg/dL LAB CHEMISTRY METHOD 05/25/2024 11:53 AM [facility] LAB Blood Venous blood specimen / Unknown Venipuncture / Unknown 05/25/2024 6:42 AM EST 05/25/2024 10:15 AM EST us Damien Kay MD LAB BLOOD ORDERABLES Final Resul t [facility] [address] [place] [address], * (ABNORMAL) Complete blood count (05/25/2024 6:42 AM EST) [facility] WBC 9.5 4.8 - 10.8 K/mcL LAB HEMETOLOGY METHOD 05/25/2024 11:22 AM [facility] LAB RBC 3.70(L) 3.80 - 4.80 M/mcL LAB HEMETOLOGY METHOD 05/25/2024 11:22 AM [facility] LAB Hemoglobin 9.3(L) 11.5 - 16.0 g/dL LAB HEMETOLOGY METHOD 05/25/2024 11:22 AM [facility] LAB Hematocrit 30.7(L) 35.0 - 47.0 % LAB HEMETOLOGY METHOD 05/25/2024 11:22 AM [facility] LAB MCV 84.1 79.0 - 98.0 FL LAB HEMETOLOGY METHOD 05/25/2024 11:22 AM [facility] LAB MCH 25.5(L) 27.0 - 32.0 pcg LAB HEMETOLOGY METHOD 05/25/2024 11:22 AM [facility] LAB MCHC 30.3(L) 32.0 - 37.0 g/dL LAB HEMETOLOGY METHOD 05/25/2024 11:22 AM [facility] LAB RDW 19.8(H) 11.0 - 15.0 % LAB HEMETOLOGY METHOD 05/25/2024 11:22 AM [facility] LAB Platelets 496(H) 130 - 400 K/mcL LAB HEMETOLOGY METHOD 05/25/2024 11:22 AM [facility] LAB MPV 11.2(H) 7.0 - 11.0 FL LAB HEMETOLOGY METHOD 05/25/2024 11:22 AM [facility] LAB NRBC 0.0 <1.0 % LAB HEMETOLOGY METHOD 05/25/2024 11:22 AM EST [facility] LAB NRBC Absolute 0.00 <0.10 K/mcL LAB HEMETOLOGY METHOD 05/25/2024 11:22 AM EST [facility] LAB Blood Venous blood specimen / Unknown Venipuncture / Unknown 05/25/2024 6:42 AM EST 05/25/2024 10:15 AM EST us Damien Kay MD LAB BLOOD ORDERABLES Final Resul t [facility] [address] [place] [address], documented in this encounter Visit Diagnoses Diagnosis Unspecified atrial fibrillation (CMS/HCC) Type 2 diabetes mellitus without complications (CMS/HCC) Heart failure, unspecified (CMS/HCC) Heart failure, unspecified documented in this encounter Care Teams Criminal Justice Faculty Relationship Specialty Start Date End Date Damien Kay MD [address] [place] [address], [phone] PCP - General Family Medicine 04/11/24 documented as of this encounter
--- OUTSIDE RECORDS SUMMARY | 2024-07-07 13:51 | XMS_ITS | Encounter Summary ---
Author Organization [facility] Address [address] [place] [address] Care Team Providers Care Dictating Machine Transcriber Name Role Phone Damien Kay MD Primary Care Provider [phone] Encounter Details Date Type Department Care Team (Late st Contact Info) Description 05/31/2024 Lab Requisition [facility] - Main Lab [address] [facility] [place] [address] Damien Kay MD [address] [place] [address] [address] [place], [phone] Unspecified atrial fibrillation (CMS/HCC); Type 2 [...] Associated Diagnosis Comments COMPLETE BLOOD COUNT Routine 06/01/2024 5:17 AM EST Unspecified atrial fibrillation (CMS/HCC) Type 2 diabetes mellitus without complications (CMS/HCC) Heart failure, unspecified (CMS/HCC) BASIC METABOLIC PANEL Routine 06/01/2024 5:17 AM EST Unspecified atrial fibrillation (CMS/HCC) Type 2 diabetes mellitus without complications (CMS/HCC) Heart failure, unspecified (CMS/HCC) documented in this encounter Results * (ABNORMAL) Basic metabolic panel (06/01/2024 5:17 AM EST) Sodium 141 133 - 145 mmol/L LAB CHEMISTRY METHOD 06/01/2024 8:43 AM [facility] LAB Potassium 3.9 3.5 - 5.5 mmol/L LAB CHEMISTRY METHOD 06/01/2024 8:43 AM [facility] LAB Chloride 107 96 - 110 mmol/L LAB CHEMISTRY METHOD 06/01/2024 8:43 AM [facility] LAB CO2 27 21 - 32 mmol/L LAB CHEMISTRY METHOD 06/01/2024 8:43 AM [facility] LAB Anion Gap 7 3 - 11 LAB CHEMISTRY METHOD 06/01/2024 8:43 AM [facility] LAB Glucose 104(H) 70 - 100 mg/dL LAB CHEMISTRY METHOD 06/01/2024 8:43 AM [facility] LAB BUN 25 5 - 25 mg/dL LAB CHEMISTRY METHOD 06/01/2024 8:43 AM [facility] LAB Creatinine 1.46(H) 0.50 - 1.10 mg/dL LAB CHEMISTRY METHOD 06/01/2024 8:43 AM [facility] LAB eGFR 38(L) >=60 mL/min/1. 73m2 LAB CHEMISTRY METHOD 06/01/2024 8:43 AM [facility] LAB Comment:Calculation based on the??Chronic Kidney Disease Epidemiology Collaboration (CKD-EPI) equation refit??without adjustment for race. BUN/Creatinine Ratio 17.1 LAB CHEMISTRY METHOD 06/01/2024 8:43 AM [facility] LAB Calcium 8.4(L) 8.5 - 10.5 mg/dL LAB CHEMISTRY METHOD 06/01/2024 8:43 AM [facility] LAB Blood Venous blood specimen / Unknown Venipuncture / Unknown 06/01/2024 5:17 AM EST 06/01/2024 8:06 AM EST us Damien Kay MD LAB BLOOD ORDERABLES Final Resul t [facility] [address] [place] [address], * (ABNORMAL) Complete blood count (06/01/2024 5:17 AM EST) [facility] WBC 9.3 4.8 - 10.8 K/mcL LAB HEMETOLOGY METHOD 06/01/2024 8:22 AM [facility] LAB RBC 3.70(L) 3.80 - 4.80 M/mcL LAB HEMETOLOGY METHOD 06/01/2024 8:22 AM [facility] LAB Hemoglobin 9.5(L) 11.5 - 16.0 g/dL LAB HEMETOLOGY METHOD 06/01/2024 8:22 AM [facility] LAB Hematocrit 31.2(L) 35.0 - 47.0 % LAB HEMETOLOGY METHOD 06/01/2024 8:22 AM [facility] LAB MCV 84.3 79.0 - 98.0 FL LAB HEMETOLOGY METHOD 06/01/2024 8:22 AM [facility] LAB MCH 25.7(L) 27.0 - 32.0 pcg LAB HEMETOLOGY METHOD 06/01/2024 8:22 AM [facility] LAB MCHC 30.4(L) 32.0 - 37.0 g/dL LAB HEMETOLOGY METHOD 06/01/2024 8:22 AM [facility] LAB RDW 20.8(H) 11.0 - 15.0 % LAB HEMETOLOGY METHOD 06/01/2024 8:22 AM [facility] LAB Platelets 532(H) 130 - 400 K/mcL LAB HEMETOLOGY METHOD 06/01/2024 8:22 AM [facility] LAB MPV 11.7(H) 7.0 - 11.0 FL LAB HEMETOLOGY METHOD 06/01/2024 8:22 AM [facility] LAB NRBC 0.0 <1.0 % LAB HEMETOLOGY METHOD 06/01/2024 8:22 AM EST [facility] NRBC Absolute 0.00 <0.10 K/mcL LAB HEMETOLOGY METHOD 06/01/2024 8:22 AM EST [facility] Blood Venous blood specimen / Unknown Venipuncture / Unknown 06/01/2024 5:17 AM EST 06/01/2024 8:06 AM EST us Damien Kay MD LAB BLOOD ORDERABLES Final Resul t [facility] [address] [place] [address], documented in this encounter Visit Diagnoses Diagnosis Unspecified atrial fibrillation (CMS/HCC) Type 2 diabetes mellitus without complications (CMS/HCC) Heart failure, unspecified (CMS/HCC) Heart failure, unspecified documented in this encounter Care Teams Dictating Machine Transcriber Relationship Specialty Start Date End Date Damien Kay MD [address] [place] [address], [phone] PCP - General Family Medicine 04/11/24 documented as of this encounter
--- OUTSIDE RECORDS SUMMARY | 2024-07-07 13:51 | XMS_ITS | Clinical Summary ---
Author Organization [address] Address [address] [place] [address] Phone Care Team Providers Care Glass Finisher Name Role Phone Damien Kay MD Primary Care Provider [phone] Encounters Date Type Department Care Team Description 06/28/[address] [facility] [address] [place] [phone] Damien Kay MD Heart failure, unspecified (CMS/HCC); Sepsis, unspecified organism (CMS/HCC); Hyperlipidemia, unspecified; Type 2 diabetes mellitus without complications (CMS/HCC); Other cerebrovascular disease 06/21/[address] [facility] [address] [place] [phone] Damien Kay MD Hyperlipidemia, unspecified; Sepsis, unspecified organism (CMS/HCC); Heart failure, unspecified (CMS/HCC) 06/14/[address] [facility] [address] [place] [phone] Damien Kay MD Hyperlipidemia, unspecified; Sepsis, unspecified organism (CMS/HCC); Unspecified atrial fibrillation (CMS/HCC); Type 2 diabetes mellitus without complications (CMS/HCC); Heart failure, unspecified (CMS/HCC) 06/07/[address] [facility] [address] [place] [phone] Damien Kay MD Unspecified atrial fibrillation (CMS/HCC); Type 2 diabetes mellitus without complications (CMS/HCC); Heart failure, unspecified (CMS/HCC) 05/31/[address] [facility] [address] [place] [phone] Damien Kay MD Unspecified atrial fibrillation (CMS/HCC); Type 2 diabetes mellitus without complications (CMS/HCC); Heart failure, unspecified (CMS/HCC) 05/24/[address] [facility] [address] [place] [phone] Damien Kay MD Unspecified atrial fibrillation (CMS/HCC); Type 2 diabetes mellitus without complications (CMS/HCC); Heart failure, unspecified (CMS/HCC) 05/17/[address] [facility] [address] [place] [phone] Damien Kay MD Unspecified atrial fibrillation (CMS/HCC); Type 2 diabetes mellitus without complications (CMS/HCC); Heart failure, unspecified (CMS/HCC) 05/14/[address] [facility] [address] [place] [phone] Damien Kay MD Type 2 diabetes mellitus without complications ([facility]/HCC) 05/10/[address] [facility] [address] [place] [phone] Damien Kay MD Unspecified atrial fibrillation ([facility]/HCC); Type 2 diabetes mellitus without complications (CMS/HCC); Heart failure, unspecified (CMS/HCC) 05/07/[address] [facility] [address] [place] [address] Damien Kay MD Type 2 diabetes mellitus without complications (CMS/HCC) 05/04/[address] [facility] [address] [place] [address] Damien Kay MD Pneumonia, unspecified organism; Unspecified atrial fibrillation (CMS/HCC); Unspecified dementia, unspecified severity, without behavioral disturbance, psychotic disturbance, mood disturbance, and anxiety (CMS/HCC); Type 2 diabetes mellitus without complications (CMS/HCC); Heart failure, unspecified (CMS/HCC); Sepsis, unspecified organism (CMS/HCC) 04/29/[address] [facility] [address] [place] [phone] Damien Kay MD Type 2 diabetes mellitus without complications (CMS/HCC) 04/23/[address] [facility] [address] [place] [phone] Damien Kay MD Type 2 diabetes mellitus without complications (CMS/HCC) 04/22/[address] [facility] [address] [place] [phone] Damien Kay MD Unspecified atrial fibrillation (CMS/HCC); Sepsis, unspecified organism (CMS/HCC); Heart failure, unspecified (CMS/HCC); Type 2 diabetes mellitus without complications (CMS/HCC) 04/15/[address] [facility] [address] [place] [phone] Damien Kay MD Type 2 diabetes mellitus without complications ([facility]/HCC) 04/11/[address] [facility] [address] [place] [phone] Damien Kay MD Type 2 diabetes mellitus without complications (CMS/HCC) from Last 3 Months Social History Tobacco Use Types Packs/Day Years Used Date Smoking Tobacco: Never Assessed Comments Unknown Sex and Gender Information Value Date Recorded Sex Assigned at Not on file Legal Sex Female 9:43 AM EST Gender Identity Not on file Sexual Orientation Not on file Plan of Treatment Health Maintenance Due Date Last Done Comments Breast Cancer Screening 1950 Diabetes: Annual Foot Exam 08/27/1961 Diabetes: Annual Retina Eye Exam 08/27/1961 DTaP,Tdap,and Td Vaccines (1 - Tdap) 08/27/1970 Pneumococcal Vaccine: 50+ Years (1 of 2 - PCV) 08/27/1970 Zoster Vaccines (1 of 2) 08/27/2001 Cholesterol Screening (Lipid Panel) 04/20/2022 Colorectal Cancer Screening: Colonoscopy 04/20/2022 Depression Screening 04/20/2022 Falls Risk Assessment 04/20/2022 Hepatitis C Screening 04/20/2022 Medicare Annual Wellness Visit 04/20/2022 Osteoporosis Screening (Bone Density Screening) 04/20/2022 Social Influencers of Health Screening 04/20/2022 COVID-19 Vaccine ( season) 2024 Influenza Vaccine (#1) 2024 Diabetes: Annual Urine Albumin-Creatinine Ratio (uACR) 04/11/2024 Diabetes: Blood Sugar Control Test (HGBA1C) 04/11/2024 Diabetes: Annual GFR (Glomerular Filtration Rate) 06/29/2025 06/29/2024, 06/22/2024, 06/15/2024, Additional history exists RSV Immunization Patients 60+ Years Old (1 - 1-dose 75+ series) 08/27/2026 HIB Vaccines Aged Out No longer eligi ble based on patient's age to complete this topic HPV Vaccines Aged Out No longer eligi ble based on patient's age to complete this topic Hepatitis A Vaccines Aged Out No long er eligible based on patient's age to complete this topic Hepatitis B Vaccines Aged Out No long er eligible based on patient's age to complete this topic IPV Vaccines Aged Out No longer eligi ble based on patient's age to complete this topic MMR Vaccines Aged Out No longer eligi ble based on patient's age to complete this topic Meningococcal ACWY Vaccine Aged Out N o longer eligible based on patient's age to complete this topic Meningococcal B Vacine Aged Out No lo nger eligible based on patient's age to complete this topic RSV Immunization Patients Under 20 months Aged Out No longer eligible based on patient's age to complete this topic Varicella Vaccines Aged Out No longer eligible based on patient's age to complete this topic Procedures Procedure Name Priority Date/Time Associated Diagnosis Comments CBC WITH AUTO DIFFERENTIAL Routine 06/29/2024 6:37 AM EST Heart failure, unspecified (CMS/HCC) Sepsis, unspecified organism (CMS/HCC) Hyperlipidemia, unspecified Type 2 diabetes mellitus without complications (CMS/HCC) Other cerebrovascular disease CBC AND DIFFERENTIAL Routine 06/29/2024 6:37 AM EST Heart failure, unspecified (CMS/HCC) Sepsis, unspecified organism (CMS/HCC) Hyperlipidemia, unspecified Type 2 diabetes mellitus without complications (CMS/HCC) Other cerebrovascular disease B-TYPE NATRIURETIC PEPTIDE Routine 06/29/2024 6:37 AM EST Heart failure, unspecified (CMS/HCC) Sepsis, unspecified organism (CMS/HCC) Hyperlipidemia, unspecified Type 2 diabetes mellitus without complications (CMS/HCC) Other cerebrovascular disease BASIC METABOLIC PANEL Routine 06/29/2024 6:37 AM EST Heart failure, unspecified (CMS/HCC) Sepsis, unspecified organism (CMS/HCC) Hyperlipidemia, unspecified Type 2 diabetes mellitus without complications (CMS/HCC) Other cerebrovascular disease COMPLETE BLOOD COUNT Routine 06/29/2024 6:37 AM EST Heart failure, unspecified (CMS/HCC) Sepsis, unspecified organism (CMS/HCC) Hyperlipidemia, unspecified Type 2 diabetes mellitus without complications (CMS/HCC) Other cerebrovascular disease B-TYPE NATRIURETIC PEPTIDE Routine 06/22/2024 5:24 AM EST Hyperlipidemia, unspecified Sepsis, unspecified organism (CMS/HCC) Heart failure, unspecified (CMS/HCC) BASIC METABOLIC PANEL Routine 06/22/2024 5:24 AM EST Hyperlipidemia, unspecified Sepsis, unspecified organism (CMS/HCC) Heart failure, unspecified (CMS/HCC) COMPLETE BLOOD COUNT Routine 06/22/2024 5:24 AM [...] without complications (CMS/HCC) Heart failure, unspecified (CMS/HCC) COMPLETE BLOOD COUNT Routine 06/15/2024 8:03 AM EST Hyperlipidemia, unspecified Sepsis, unspecified organism (CMS/HCC) Unspecified atrial fibrillation (CMS/HCC) Type 2 diabetes mellitus without complications (CMS/HCC) Heart failure, unspecified (CMS/HCC) BASIC METABOLIC PANEL Routine 06/08/2024 7:36 AM EST Unspecified atrial fibrillation (CMS/HCC) Type 2 diabetes mellitus without complications (CMS/HCC) Heart failure, unspecified (CMS/HCC) COMPLETE BLOOD COUNT Routine 06/08/2024 7:36 AM EST Unspecified atrial fibrillation (CMS/HCC) Type 2 diabetes mellitus without complications (CMS/HCC) Heart failure, unspecified (CMS/HCC) BASIC METABOLIC PANEL Routine 06/01/2024 5:17 AM EST Unspecified atrial fibrillation (CMS/HCC) Type 2 diabetes mellitus without complications (CMS/HCC) Heart failure, unspecified (CMS/HCC) COMPLETE BLOOD COUNT Routine 06/01/2024 5:17 AM EST Unspecified atrial fibrillation (CMS/HCC) Type 2 diabetes mellitus without complications (CMS/HCC) Heart failure, unspecified (CMS/HCC) BASIC METABOLIC PANEL Routine 05/25/2024 6:42 AM EST Unspecified atrial fibrillation (CMS/HCC) Type 2 diabetes mellitus without complications (CMS/HCC) Heart failure, unspecified (CMS/HCC) COMPLETE BLOOD COUNT Routine 05/25/2024 6:42 AM EST Unspecified atrial fibrillation (CMS/HCC) Type 2 diabetes mellitus without complications (CMS/HCC) Heart failure, unspecified (CMS/HCC) BASIC METABOLIC PANEL Routine 05/19/2024 5:53 AM EST Unspecified atrial fibrillation (CMS/HCC) Type 2 diabetes mellitus without complications (CMS/HCC) Heart failure, unspecified (CMS/HCC) COMPLETE BLOOD COUNT Routine 05/19/2024 5:53 AM EST Unspecified atrial fibrillation (CMS/HCC) Type 2 diabetes mellitus without complications (CMS/HCC) Heart failure, unspecified (CMS/HCC) CBC WITH AUTO DIFFERENTIAL Routine 05/16/2024 4:53 AM EST Type 2 diabetes mellitus without complications (CMS/HCC) COMPREHENSIVE METABOLIC PANEL Routine 05/16/2024 4:53 AM EST Type 2 diabetes mellitus without complications (CMS/HCC) CBC AND DIFFERENTIAL Routine 05/16/2024 4:53 AM EST Type 2 diabetes mellitus without complications (CMS/HCC) BASIC METABOLIC PANEL Routine 05/12/2024 7:30 AM EST Unspecified atrial fibrillation (CMS/HCC) Type 2 diabetes mellitus without complications (CMS/HCC) Heart failure, unspecified (CMS/HCC) COMPLETE BLOOD COUNT Routine 05/12/2024 7:30 AM EST Unspecified atrial fibrillation (CMS/HCC) Type 2 diabetes mellitus without complications (CMS/HCC) Heart failure, unspecified (CMS/HCC) CBC WITH AUTO DIFFERENTIAL Routine 05/09/2024 4:44 AM EST Type 2 diabetes mellitus without complications (CMS/HCC) COMPREHENSIVE METABOLIC PANEL Routine 05/09/2024 4:44 AM EST Type 2 diabetes mellitus without complications (CMS/HCC) CBC AND DIFFERENTIAL Routine 05/09/2024 4:44 AM EST Type 2 diabetes mellitus without complications (CMS/HCC) BASIC METABOLIC PANEL Routine 05/04/2024 7:19 AM EST Pneumonia, unspecified organism Unspecified atrial fibrillation (CMS/HCC) Unspecified dementia, unspecified severity, without behavioral disturbance, psychotic disturbance, mood disturbance, and anxiety (CMS/HCC) Type 2 diabetes mellitus without complications (CMS/HCC) Heart failure, unspecified (CMS/HCC) Sepsis, unspecified organism (CMS/HCC) COMPLETE BLOOD COUNT Routine 05/04/2024 7:19 AM EST Pneumonia, unspecified organism Unspecified atrial fibrillation (CMS/HCC) Unspecified dementia, unspecified severity, without behavioral disturbance, psychotic disturbance, mood disturbance, and anxiety (CMS/HCC) Type 2 diabetes mellitus without complications (CMS/HCC) Heart failure, unspecified (CMS/HCC) Sepsis, unspecified organism (CMS/HCC) CBC WITH AUTO DIFFERENTIAL Routine 05/02/2024 5:51 AM EST Type 2 diabetes mellitus without complications (CMS/HCC) COMPREHENSIVE METABOLIC PANEL Routine 05/02/2024 5:51 AM EST Type 2 diabetes mellitus without complications (CMS/HCC) CBC AND DIFFERENTIAL Routine 05/02/2024 5:51 AM EST Type 2 diabetes mellitus without complications (CMS/HCC) COMPREHENSIVE METABOLIC PANEL Routine 04/22/2024 8:06 AM EST Unspecified atrial fibrillation (CMS/HCC) Sepsis, unspecified organism (CMS/HCC) Heart failure, unspecified (CMS/HCC) Type 2 diabetes mellitus without complications (CMS/HCC) COMPLETE BLOOD COUNT Routine 04/22/2024 8:06 AM EST Unspecified atrial fibrillation (CMS/HCC) Sepsis, unspecified organism (CMS/HCC) Heart failure, unspecified (CMS/HCC) Type 2 diabetes mellitus without complications (CMS/HCC) CBC WITH AUTO DIFFERENTIAL Routine 04/18/2024 5:30 AM EST Type 2 diabetes mellitus without complications (CMS/HCC) COMPREHENSIVE METABOLIC PANEL Routine 04/18/2024 5:30 AM EST Type 2 diabetes mellitus without complications (CMS/HCC) CBC AND DIFFERENTIAL Routine 04/18/2024 5:30 AM EST Type 2 diabetes mellitus without complications (CMS/HCC) CBC WITH AUTO DIFFERENTIAL Routine 04/11/2024 6:56 AM EST Type 2 diabetes mellitus without complications (CMS/HCC) COMPREHENSIVE METABOLIC PANEL Routine 04/11/2024 6:56 AM EST Type 2 diabetes mellitus without complications (CMS/HCC) CBC AND DIFFERENTIAL Routine 04/11/2024 6:56 AM EST Type 2 diabetes mellitus without complications (CMS/HCC) from Last 3 Months Results * (ABNORMAL) CBC auto differential (06/29/2024 6:37 AM EST) Only the most recent of6 resultswithin the time period is included. [facility] WBC 9.5 4.8 - 10.8 K/mcL LAB HEMETOLOGY METHOD 06/29/2024 11:49 AM [facility] RBC 2.90(L) 3.80 - 4.80 M/mcL LAB HEMETOLOGY METHOD 06/29/2024 11:49 AM [facility] Hemoglobin 8.1(L) 11.5 - 16.0 g/dL LAB HEMETOLOGY METHOD 06/29/2024 11:49 AM [facility] Hematocrit 26.9(L) 35.0 - 47.0 % LAB HEMETOLOGY METHOD 06/29/2024 11:49 AM [facility] MCV 92.1 79.0 - 98.0 FL LAB HEMETOLOGY METHOD 06/29/2024 11:49 AM [facility] MCH 27.7 27.0 - 32.0 pcg LAB HEMETOLOGY METHOD 06/29/2024 11:49 AM [facility] MCHC 30.1(L) 32.0 - 37.0 g/dL LAB HEMETOLOGY METHOD 06/29/2024 11:49 AM [facility] RDW 26.9(H) 11.0 - 15.0 % LAB HEMETOLOGY METHOD 06/29/2024 11:49 AM [facility] Platelets 464(H) 130 - 400 K/mcL LAB HEMETOLOGY METHOD 06/29/2024 11:49 AM [facility] MPV 10.8 7.0 - 11.0 FL LAB HEMETOLOGY METHOD 06/29/2024 11:49 AM [facility] NRBC 0.0 <1.0 % LAB HEMETOLOGY METHOD 06/29/2024 11:49 AM [facility] NRBC Absolute 0.00 <0.10 K/mcL LAB HEMETOLOGY METHOD 06/29/2024 11:49 AM [facility] Neutrophils Relative 66.8 % LAB HEMETOLOGY METHOD 06/29/2024 11:49 AM [facility] Lymphocytes Relative 20.1 % LAB HEMETOLOGY METHOD 06/29/2024 11:49 AM [facility] Monocytes Relative 10.7 % LAB HEMETOLOGY METHOD 06/29/2024 11:49 AM [facility] Eosinophils Relative 0.8 % LAB HEMETOLOGY METHOD 06/29/2024 11:49 AM [facility] Basophils Relative 1.0 % LAB HEMETOLOGY METHOD 06/29/2024 11:49 AM [facility] Immature Granulocytes Relative 0.6 % LAB HEMETOLOGY METHOD 06/29/2024 11:49 AM [facility] Neutrophils Absolute 6.35 1.50 - 7.00 K/mcL LAB HEMETOLOGY METHOD 06/29/2024 11:49 AM [facility] Lymphocytes Absolute 1.92 1.00 - 5.00 K/mcL LAB HEMETOLOGY METHOD 06/29/2024 11:49 AM [facility] Monocytes Absolute 1.02(H) 0.20 - 1.00 K/mcL LAB HEMETOLOGY METHOD 06/29/2024 11:49 AM [facility] Eosinophils Absolute 0.08 0.00 - 0.50 K/mcL LAB HEMETOLOGY METHOD 06/29/2024 11:49 AM [facility] Basophils Absolute 0.10 0.00 - 0.20 K/[facility] LAB HEMETOLOGY METHOD 06/29/2024 11:49 AM [facility] Immature Granulocytes Absolute 0.06(H) 0.00 - 0.03 K/mcL LAB HEMETOLOGY METHOD 06/29/2024 11:49 AM [facility] Blood Venous blood specimen / Unknown Venipuncture / Unknown 06/29/2024 6:37 AM EST 06/29/2024 10:55 AM EST us Damien Kay MD LAB BLOOD ORDERABLES Final Resul t [facility] [address] [place] [address], [place] [phone] * (ABNORMAL) Complete blood count (06/29/2024 6:37 AM EST) Only the most recent of10 resultswithin the time period is included. WBC 9.5 4.8 - 10.8 K/mcL LAB HEMETOLOGY METHOD 06/29/2024 11:49 AM [facility] RBC 2.90(L) 3.80 - 4.80 M/mcL LAB HEMETOLOGY METHOD 06/29/2024 11:49 AM [facility] Hemoglobin 8.1(L) 11.5 - 16.0 g/dL LAB HEMETOLOGY METHOD 06/29/2024 11:49 AM [facility] Hematocrit 26.9(L) 35.0 - 47.0 % LAB HEMETOLOGY METHOD 06/29/2024 11:49 AM [facility] MCV 92.1 79.0 - 98.0 FL LAB HEMETOLOGY METHOD 06/29/2024 11:49 AM [facility] MCH 27.7 27.0 - 32.0 pcg LAB HEMETOLOGY METHOD 06/29/2024 11:49 AM EST [facility] MCHC 30.1(L) 32.0 - 37.0 g/dL LAB HEMETOLOGY METHOD 06/29/2024 11:49 AM [facility] RDW 26.9(H) 11.0 - 15.0 % LAB HEMETOLOGY METHOD 06/29/2024 11:49 AM EST [facility] Platelets 464(H) 130 - 400 K/mcL LAB HEMETOLOGY METHOD 06/29/2024 11:49 AM [facility] MPV 10.8 7.0 - 11.0 FL LAB HEMETOLOGY METHOD 06/29/2024 11:49 AM [facility] NRBC 0.0 <1.0 % LAB HEMETOLOGY METHOD 06/29/2024 11:49 AM [facility] NRBC Absolute 0.00 <0.10 K/mcL LAB HEMETOLOGY METHOD 06/29/2024 11:49 AM [facility] Blood Venous blood specimen / Unknown Venipuncture / Unknown 06/29/2024 6:37 AM EST 06/29/2024 10:55 AM EST us Damien Kay MD LAB BLOOD ORDERABLES Final Resul t [facility] [address] [place] [address], * (ABNORMAL) B-type natriuretic peptide (06/29/2024 6:37 AM EST) Only the most recent of3 resultswithin the time period is included. BNP 328(H) <=100 pcg/mL LAB CHEMISTRY METHOD 06/29/2024 12:01 PM EST [facility] Blood Venous blood specimen / Unknown Venipuncture / Unknown 06/29/2024 6:37 AM EST 06/29/2024 10:55 AM EST us Damien Kay MD LAB BLOOD ORDERABLES Final Resul t [facility] [address] [place] [address], [place] [phone] * (ABNORMAL) Basic metabolic panel (06/29/2024 6:37 AM EST) Only the most recent of9 resultswithin the time period is included. Pathologist [facility] Sodium 141 133 - 145 mmol/L LAB CHEMISTRY METHOD 06/29/2024 11:57 AM [facility] Potassium 4.7 3.5 - 5.5 mmol/L LAB CHEMISTRY METHOD 06/29/2024 11:57 AM [facility] Chloride 109 96 - 110 mmol/L LAB CHEMISTRY METHOD 06/29/2024 11:57 AM [facility] CO2 26 21 - 32 mmol/L LAB CHEMISTRY METHOD 06/29/2024 11:57 AM [facility] Anion Gap 6 3 - 11 LAB CHEMISTRY METHOD 06/29/2024 11:57 AM [facility] Glucose 83 70 - 100 mg/dL LAB CHEMISTRY METHOD 06/29/2024 11:57 AM [facility] BUN 14 5 - 25 mg/dL LAB CHEMISTRY METHOD 06/29/2024 11:57 AM [facility] Creatinine 1.02 0.50 - 1.10 mg/dL LAB CHEMISTRY METHOD 06/29/2024 11:57 AM [facility] eGFR 59(L) >=60 mL/min/1. 73m2 LAB CHEMISTRY METHOD 06/29/2024 11:57 AM [facility] Comment:Calculation based on the??Chronic Kidney Disease Epidemiology Collaboration (CKD-EPI) equation refit??without adjustment for race. BUN/Creatinine Ratio 13.7 LAB CHEMISTRY METHOD 06/29/2024 11:57 AM [facility] Calcium 8.8 8.5 - 10.5 mg/dL LAB CHEMISTRY METHOD 06/29/2024 11:57 AM [facility] Blood Venous blood specimen / Unknown Venipuncture / Unknown 06/29/2024 6:37 AM EST 06/29/2024 10:55 AM EST us Damien Kay MD LAB BLOOD ORDERABLES Final Resul t [facility] [address] [place] [address], [place] [phone] * (ABNORMAL) Comprehensive metabolic panel (05/16/2024 4:53 AM EST) Only the most recent of6 resultswithin the time period is included. Sodium 135 133 - 145 mmol/L LAB CHEMISTRY METHOD 05/16/2024 9:46 AM [facility] Potassium 4.0 3.5 - 5.5 mmol/L LAB CHEMISTRY METHOD 05/16/2024 9:46 AM [facility] Chloride 100 96 - 110 mmol/L LAB CHEMISTRY METHOD 05/16/2024 9:46 AM [facility] CO2 24 21 - 32 mmol/L LAB CHEMISTRY METHOD 05/16/2024 9:46 AM [facility] Anion Gap 11 3 - 11 LAB CHEMISTRY METHOD 05/16/2024 9:46 AM [facility] Glucose 87 70 - 100 mg/dL LAB CHEMISTRY METHOD 05/16/2024 9:46 AM [facility] BUN 47(H) 5 - 25 mg/dL LAB CHEMISTRY METHOD 05/16/2024 9:46 AM [facility] Creatinine 2.14(H) 0.50 - 1.10 mg/dL LAB CHEMISTRY METHOD 05/16/2024 9:46 AM [facility] eGFR 24(L) >=60 mL/min/1. 73m2 LAB CHEMISTRY METHOD 05/16/2024 9:46 AM [facility] Comment:Calculation based on the??Chronic Kidney Disease Epidemiology Collaboration (CKD-EPI) equation refit??without adjustment for race. BUN/Creatinine Ratio 22.0 LAB CHEMISTRY METHOD 05/16/2024 9:46 AM [facility] Calcium 8.8 8.5 - 10.5 mg/dL LAB CHEMISTRY METHOD 05/16/2024 9:46 AM [facility] AST (SGOT) 31 10 - 42 unit/L LAB CHEMISTRY METHOD 05/16/2024 9:46 AM [facility] ALT (SGPT) 22 10 - 60 unit/L LAB CHEMISTRY METHOD 05/16/2024 9:46 AM [facility] Alkaline Phosphatase 76 42 - 121 unit/L LAB CHEMISTRY METHOD 05/16/2024 9:46 AM [facility] Total Protein 6.2 6.0 - 8.0 g/dL LAB CHEMISTRY METHOD 05/16/2024 9:46 AM [facility] Albumin 2.2(L) 3.2 - 5.0 g/dL LAB CHEMISTRY METHOD 05/16/2024 9:46 AM [facility] Total Bilirubin 0.2 0.0 - 1.4 mg/dL LAB CHEMISTRY METHOD 05/16/2024 9:46 AM [facility] Blood Venous blood specimen / Unknown Venipuncture / Unknown 05/16/2024 4:53 AM EST 05/16/2024 8:29 AM EST us Damien Kay MD LAB BLOOD ORDERABLES Final Resul t [facility] [address] [place] [address], from Last 3 Months Insurance MEDICARE MEDICAID - [place] Care Teams Glass Finisher Relationship Specialty Start Date End Date Damien Kay MD [address] [place] [address], [phone] PCP - General Family Medicine 04/11/24
--- OUTSIDE RECORDS SUMMARY | 2024-07-07 13:51 | XMS_ITS | Encounter Summary ---
[facility] Organization [facility] Address [address] [place] [address] Care Team Providers Care Casting Trucker Name Role Phone Damien Kay MD Primary Care Provider [phone] Encounter Details Date Type Department Care Team (Late st Contact Info) Description 05/10/2024 Lab Requisition [facility] - Main Lab [address] [facility] [place] [address] Damien Kay MD 38 [facility] [address] [place], [phone] Unspecified atrial fibrillation (CMS/HCC); Type 2 [...] Associated Diagnosis Comments COMPLETE BLOOD COUNT Routine 05/12/2024 7:30 AM EST Unspecified atrial fibrillation (CMS/HCC) Type 2 diabetes mellitus without complications (CMS/HCC) Heart failure, unspecified (CMS/HCC) BASIC METABOLIC PANEL Routine 05/12/2024 7:30 AM EST Unspecified atrial fibrillation (CMS/HCC) Type 2 diabetes mellitus without complications (CMS/HCC) Heart failure, unspecified (CMS/HCC) documented in this encounter Results * (ABNORMAL) Basic metabolic panel (05/12/2024 7:30 AM EST) Sodium 137 133 - 145 mmol/L LAB CHEMISTRY METHOD 05/12/2024 11:29 AM [facility] Potassium 3.5 3.5 - 5.5 mmol/L LAB CHEMISTRY METHOD 05/12/2024 11:29 AM [facility] Chloride 101 96 - 110 mmol/L LAB CHEMISTRY METHOD 05/12/2024 11:29 AM [facility] CO2 27 21 - 32 mmol/L LAB CHEMISTRY METHOD 05/12/2024 11:29 AM [facility] Anion Gap 9 3 - 11 LAB CHEMISTRY METHOD 05/12/2024 11:29 AM [facility] Glucose 103(H) 70 - 100 mg/dL LAB CHEMISTRY METHOD 05/12/2024 11:29 AM [facility] BUN 37(H) 5 - 25 mg/dL LAB CHEMISTRY METHOD 05/12/2024 11:29 AM [facility] Creatinine 1.70(H) 0.50 - 1.10 mg/dL LAB CHEMISTRY METHOD 05/12/2024 11:29 AM [facility] eGFR 32(L) >=60 mL/min/1. 73m2 LAB CHEMISTRY METHOD 05/12/2024 11:29 AM [facility] Comment:Calculation based on the??Chronic Kidney Disease Epidemiology Collaboration (CKD-EPI) equation refit??without adjustment for race. BUN/Creatinine Ratio 21.8 LAB CHEMISTRY METHOD 05/12/2024 11:29 AM [facility] Calcium 9.0 8.5 - 10.5 mg/dL LAB CHEMISTRY METHOD 05/12/2024 11:29 AM [facility] Blood Venous blood specimen / Unknown Venipuncture / Unknown 05/12/2024 7:30 AM EST 05/12/2024 10:49 AM EST us Damien Kay MD LAB BLOOD ORDERABLES Final Resul t [facility] [address] [place] [address], * (ABNORMAL) Complete blood count (05/12/2024 7:30 AM EST) [facility] WBC 11.4(H) 4.8 - 10.8 K/mcL LAB HEMETOLOGY METHOD 05/12/2024 11:01 AM [facility] RBC 3.60(L) 3.80 - 4.80 M/mcL LAB HEMETOLOGY METHOD 05/12/2024 11:01 AM [facility] Hemoglobin 9.1(L) 11.5 - 16.0 g/dL LAB HEMETOLOGY METHOD 05/12/2024 11:01 AM [facility] Hematocrit 29.9(L) 35.0 - 47.0 % LAB HEMETOLOGY METHOD 05/12/2024 11:01 AM [facility] MCV 84.0 79.0 - 98.0 FL LAB HEMETOLOGY METHOD 05/12/2024 11:01 AM [facility] MCH 25.6(L) 27.0 - 32.0 pcg LAB HEMETOLOGY METHOD 05/12/2024 11:01 AM [facility] MCHC 30.4(L) 32.0 - 37.0 g/dL LAB HEMETOLOGY METHOD 05/12/2024 11:01 AM [facility] RDW 18.9(H) 11.0 - 15.0 % LAB HEMETOLOGY METHOD 05/12/2024 11:01 AM [facility] Platelets 690(H) 130 - 400 K/mcL LAB HEMETOLOGY METHOD 05/12/2024 11:01 AM [facility] MPV 10.2 7.0 - 11.0 FL LAB HEMETOLOGY METHOD 05/12/2024 11:01 AM [facility] NRBC 0.0 <1.0 % LAB HEMETOLOGY METHOD 05/12/2024 11:01 AM EST [facility] NRBC Absolute 0.00 <0.10 K/mcL LAB HEMETOLOGY METHOD 05/12/2024 11:01 AM EST [facility] Blood Venous blood specimen / Unknown Venipuncture / Unknown 05/12/2024 7:30 AM EST 05/12/2024 10:49 AM EST us Damien Kay MD LAB BLOOD ORDERABLES Final Resul t [facility] [address] [place] [address], documented in this encounter Visit Diagnoses Diagnosis Unspecified atrial fibrillation (CMS/HCC) Type 2 diabetes mellitus without complications (CMS/HCC) Heart failure, unspecified (CMS/HCC) Heart failure, unspecified documented in this encounter Care Teams Casting Trucker Relationship Specialty Start Date End Date Damien Kay MD [address] [place] [address], [phone] PCP - General Family Medicine 04/11/24 documented as of this encounter
--- OUTSIDE RECORDS SUMMARY | 2024-07-07 13:51 | XMS_ITS | Encounter Summary ---
[facility] Organization [facility] Address [address] [place] [phone] Care Team Providers Care Logistics Team Leader Name Role Phone Damien Kay MD Primary Care Provider [phone] Encounter Details Date Type Department Care Team (Late st Contact Info) Description 04/23/2024 Lab Requisition [facility] - Main Lab [address] [facility] [place] [address] Damien Kay MD [address] [place] [address] [address] [place], [phone] Type 2 diabetes mellitus without complications [...] on file documented as of this encounter Visit Diagnoses Diagnosis Type 2 diabetes mellitus without complications (CMS/HCC) documented in this encounter Care Teams Logistics Team Leader Relationship Specialty Start Date End Date Damien Kay MD [address] [place] [address] [address] [facility] [phone] PCP - General Family Medicine 04/11/24 documented as of this encounter
--- OUTSIDE RECORDS SUMMARY | 2024-07-07 13:51 | XMS_ITS | Encounter Summary ---
Author Organization [facility] Address [address] [place] [address] Care Team Providers Care Dairy Farm Operator Name Role Phone Damien Kay MD Primary Care Provider [phone] Encounter Details Date Type Department Care Team (Latest Contact Info) Description 06/28/2024 Lab Requisition [facility] - Main Lab 299 [facility] [place] [address] Damien Kay MD [address] [place] [address], [phone] Heart failure, unspecified (CMS/HCC); Sepsis, unspecified organism (CMS/HCC); Hyperlipidemia, unspecified; Type 2 diabetes mellitus without complications (CMS/HCC); Other cerebrovascular disease Social History Tobacco Use Types Packs/Day Years [...] mellitus without complications (CMS/HCC) Other cerebrovascular disease documented in this encounter Results * (ABNORMAL) CBC auto differential (06/29/2024 6:37 AM EST) WBC 9.5 4.8 - 10.8 K/mcL LAB HEMETOLOGY METHOD 06/29/2024 11:49 AM [facility] RBC 2.90(L) 3.80 - 4.80 M/mcL LAB HEMETOLOGY METHOD 06/29/2024 11:49 AM [facility] Hemoglobin 8.1(L) 11.5 - 16.0 g/dL LAB HEMETOLOGY METHOD 06/29/2024 11:49 AM [facility] Hematocrit 26.9(L) 35.0 - 47.0 % LAB HEMETOLOGY METHOD 06/29/2024 11:49 AM [facility] MCV 92.1 79.0 - 98.0 FL LAB HEMETOLOGY METHOD 06/29/2024 11:49 AM [facility] MCH 27.7 27.0 - 32.0 pcg LAB HEMETOLOGY METHOD 06/29/2024 11:49 AM [facility] MCHC 30.1(L) 32.0 - 37.0 g/dL LAB HEMETOLOGY METHOD 06/29/2024 11:49 AM [facility] RDW 26.9(H) 11.0 - 15.0 % LAB HEMETOLOGY METHOD 06/29/2024 11:49 AM [facility] Platelets 464(H) 130 - 400 K/mcL LAB HEMETOLOGY METHOD 06/29/2024 11:49 AM [facility] MPV 10.8 7.0 - 11.0 FL LAB HEMETOLOGY METHOD 06/29/2024 11:49 AM [facility] NRBC 0.0 <1.0 % LAB HEMETOLOGY METHOD 06/29/2024 11:49 AM [facility] NRBC Absolute 0.00 <0.10 K/mcL LAB HEMETOLOGY METHOD 06/29/2024 11:49 AM [facility] Neutrophils Relative 66.8 % LAB HEMETOLOGY METHOD 06/29/2024 11:49 AM [facility] Lymphocytes Relative 20.1 % LAB HEMETOLOGY METHOD 06/29/2024 11:49 AM [facility] Monocytes Relative 10.7 % LAB HEMETOLOGY METHOD 06/29/2024 11:49 AM [facility] Eosinophils Relative 0.8 % LAB HEMETOLOGY METHOD 06/29/2024 11:49 AM [facility] Basophils Relative 1.0 % LAB HEMETOLOGY METHOD 06/29/2024 11:49 AM [facility] Immature Granulocytes Relative 0.6 % LAB HEMETOLOGY METHOD 06/29/2024 11:49 AM [facility] Neutrophils Absolute 6.35 1.50 - 7.00 K/mcL LAB HEMETOLOGY METHOD 06/29/2024 11:49 AM [facility] Lymphocytes Absolute 1.92 1.00 - 5.00 K/mcL LAB HEMETOLOGY METHOD 06/29/2024 11:49 AM EST [facility] Monocytes Absolute 1.02(H) 0.20 - 1.00 K/mcL LAB HEMETOLOGY METHOD 06/29/2024 11:49 AM [facility] Eosinophils Absolute 0.08 0.00 - 0.50 K/mcL LAB HEMETOLOGY METHOD 06/29/2024 11:49 AM [facility] Basophils Absolute 0.10 0.00 - 0.20 K/mcL LAB HEMETOLOGY METHOD 06/29/2024 11:49 AM [facility] Immature Granulocytes Absolute 0.06(H) 0.00 - 0.03 K/mcL LAB HEMETOLOGY METHOD 06/29/2024 11:49 AM [facility] Blood Venous blood specimen / Unknown Venipuncture / Unknown 06/29/2024 6:37 AM EST 06/29/2024 10:55 AM EST Damien Kay MD LAB BLOOD ORDERABLES Final Resul t Performing Organization Address City/[facility]/ZIP Co de Phone Number [facility] [address] [place] [address], [place] [phone] * (ABNORMAL) B-type natriuretic peptide (06/29/2024 6:37 AM EST) BNP 328(H) <=100 pcg/mL LAB CHEMISTRY METHOD 06/29/2024 12:01 PM EST [facility] Blood Venous blood specimen / Unknown Venipuncture / Unknown 06/29/2024 6:37 AM EST 06/29/2024 10:55 AM EST us Damien Kay MD LAB BLOOD ORDERABLES Final Resul t [facility] [address] [place] [address], [place] [phone] * (ABNORMAL) Basic metabolic panel (06/29/2024 6:37 AM EST) Sodium 141 133 - 145 mmol/L LAB CHEMISTRY METHOD 06/29/2024 11:57 AM [facility] Potassium 4.7 3.5 - 5.5 mmol/L LAB CHEMISTRY METHOD 06/29/2024 11:57 AM [facility] Chloride 109 96 - 110 mmol/L LAB CHEMISTRY METHOD 06/29/2024 11:57 AM [facility] CO2 26 21 - 32 mmol/L LAB CHEMISTRY METHOD 06/29/2024 11:57 AM [facility] Anion Gap 6 3 - 11 LAB CHEMISTRY METHOD 06/29/2024 11:57 AM [facility] Glucose 83 70 - 100 mg/dL LAB CHEMISTRY METHOD 06/29/2024 11:57 AM [facility] BUN 14 5 - 25 mg/dL LAB CHEMISTRY METHOD 06/29/2024 11:57 AM [facility] Creatinine 1.02 0.50 - 1.10 mg/dL LAB CHEMISTRY METHOD 06/29/2024 11:57 AM [facility] eGFR 59(L) >=60 mL/min/1. 73m2 LAB CHEMISTRY METHOD 06/29/2024 11:57 AM [facility] Comment:Calculation based on the??Chronic Kidney Disease Epidemiology Collaboration (CKD-EPI) equation refit??without adjustment for race. BUN/Creatinine Ratio 13.7 LAB CHEMISTRY METHOD 06/29/2024 11:57 AM [facility] Calcium 8.8 8.5 - 10.5 mg/dL LAB CHEMISTRY METHOD 06/29/2024 11:57 AM [facility] Blood Venous blood specimen / Unknown Venipuncture / Unknown 06/29/2024 6:37 AM EST 06/29/2024 10:55 AM EST us Damien Kay MD LAB BLOOD ORDERABLES Final Resul t [facility] [address] [place] [address], * (ABNORMAL) Complete blood count (06/29/2024 6:37 AM EST) WBC 9.5 4.8 - 10.8 K/mcL LAB HEMETOLOGY METHOD 06/29/2024 11:49 AM EST [facility] RBC 2.90(L) 3.80 - 4.80 M/mcL LAB HEMETOLOGY METHOD 06/29/2024 11:49 AM [facility] Hemoglobin 8.1(L) 11.5 - 16.0 g/dL LAB HEMETOLOGY METHOD 06/29/2024 11:49 AM [facility] Hematocrit 26.9(L) 35.0 - 47.0 % LAB HEMETOLOGY METHOD 06/29/2024 11:49 AM [facility] MCV 92.1 79.0 - 98.0 FL LAB HEMETOLOGY METHOD 06/29/2024 11:49 AM [facility] MCH 27.7 27.0 - 32.0 pcg LAB HEMETOLOGY METHOD 06/29/2024 11:49 AM [facility] MCHC 30.1(L) 32.0 - 37.0 g/dL LAB HEMETOLOGY METHOD 06/29/2024 11:49 AM [facility] RDW 26.9(H) 11.0 - 15.0 % LAB HEMETOLOGY METHOD 06/29/2024 11:49 AM [facility] Platelets 464(H) 130 - 400 K/mcL LAB HEMETOLOGY METHOD 06/29/2024 11:49 AM [facility] MPV 10.8 7.0 - 11.0 FL LAB HEMETOLOGY METHOD 06/29/2024 11:49 AM [facility] NRBC 0.0 <1.0 % LAB HEMETOLOGY METHOD 06/29/2024 11:49 AM EST [facility] NRBC Absolute 0.00 <0.10 K/mcL LAB HEMETOLOGY METHOD 06/29/2024 11:49 AM EST [facility] Blood Venous blood specimen / Unknown Venipuncture / Unknown 06/29/2024 6:37 AM EST 06/29/2024 10:55 AM EST us Damien Kay MD LAB BLOOD ORDERABLES Final Resul t [facility] [address] [place] [address], documented in this encounter Visit Diagnoses Diagnosis Heart failure, unspecified (CMS/HCC) Heart failure, unspecified Sepsis, unspecified organism (CMS/HCC) Hyperlipidemia, unspecified Type 2 diabetes mellitus without complications (CMS/HCC) Other cerebrovascular disease documented in this encounter Care Teams Dairy Farm Operator Relationship Specialty Start Date End Date Damien Kay MD [address] [place] [address], [phone] PCP - General Family Medicine 04/11/24 documented as of this encounter
--- OUTSIDE RECORDS SUMMARY | 2024-07-07 13:51 | XMS_ITS | Encounter Summary ---
Author Organization [facility] Address [address] [place] [address] Care Team Providers Care Foam Cutting Supervisor Name Role Phone Damien Kay MD Primary Care Provider [phone] Encounter Details Date Type Department Care Team (Late st Contact Info) Description 04/22/2024 Lab Requisition [facility] - Main Lab [address] [facility] [place] [address] Damien Kay MD [address] [place] [address] [address] [place], [phone] Unspecified atrial fibrillation (CMS/HCC); Sepsis, unspecified organism [...] Associated Diagnosis Comments COMPLETE BLOOD COUNT Routine 04/22/2024 8:06 AM EST Unspecified atrial fibrillation (CMS/HCC) Sepsis, unspecified organism (CMS/HCC) Heart failure, unspecified (CMS/HCC) Type 2 diabetes mellitus without complications (CMS/HCC) COMPREHENSIVE METABOLIC PANEL Routine 04/22/2024 8:06 AM EST Unspecified atrial fibrillation (CMS/HCC) Sepsis, unspecified organism (CMS/HCC) Heart failure, unspecified (CMS/HCC) Type 2 diabetes mellitus without complications (CMS/HCC) documented in this encounter Results * (ABNORMAL) Comprehensive metabolic panel (04/22/2024 8:06 AM EST) Sodium 135 133 - 145 mmol/L LAB CHEMISTRY METHOD 04/22/2024 12:[address] [facility] Potassium 6.7(HH) 3.5 - 5.5 mmol/L LAB CHEMISTRY METHOD 04/22/2024 12:[address] [facility] Chloride 102 96 - 110 mmol/L LAB CHEMISTRY METHOD 04/22/2024 12:[address] [facility] CO2 23 21 - 32 mmol/L LAB CHEMISTRY METHOD 04/22/2024 12:[address] [facility] Anion Gap 10 3 - 11 LAB CHEMISTRY METHOD 04/22/2024 12:[address] [facility] Glucose 174(H) 70 - 100 mg/dL LAB CHEMISTRY METHOD 04/22/2024 12:[address] [facility] BUN 37(H) 5 - 25 mg/dL LAB CHEMISTRY METHOD 04/22/2024 12:[address] [facility] Creatinine 1.99(H) 0.50 - 1.10 mg/dL LAB CHEMISTRY METHOD 04/22/2024 12:[address] [facility] eGFR 26(L) >=60 mL/min/1. 73m2 LAB CHEMISTRY METHOD 04/22/2024 12:[address] [facility] Comment:Calculation based on the??Chronic Kidney Disease Epidemiology Collaboration (CKD-EPI) equation refit??without adjustment for race. BUN/Creatinine Ratio 18.6 LAB CHEMISTRY METHOD 04/22/2024 12:[address] [facility] Calcium 10.8(H) 8.5 - 10.5 mg/dL LAB CHEMISTRY METHOD 04/22/2024 12:[address] [facility] AST (SGOT) 29 10 - 42 unit/L LAB CHEMISTRY METHOD 04/22/2024 12:[address] [facility] ALT (SGPT) 23 10 - 60 unit/L LAB CHEMISTRY METHOD 04/22/2024 12:[address] [facility] Alkaline Phosphatase 75 42 - 121 unit/L LAB CHEMISTRY METHOD 04/22/2024 12:[address] [facility] Total Protein 7.2 6.0 - 8.0 g/dL LAB CHEMISTRY METHOD 04/22/2024 12:[address] [facility] Albumin 3.3 3.2 - 5.0 g/dL LAB CHEMISTRY METHOD 04/22/2024 12:[address] [facility] Total Bilirubin 0.3 0.0 - 1.4 mg/dL LAB CHEMISTRY METHOD 04/22/2024 12:[address] [facility] Blood Venous blood specimen / Unknown Venipuncture / Unknown 04/22/2024 8:06 AM EST 04/22/2024 10:44 AM EST us Damien Kay MD LAB BLOOD ORDERABLES Final Resul t [facility] [address] [place] [address], * (ABNORMAL) Complete blood count (04/22/2024 8:06 AM EST) WBC 18.6(H) 4.8 - 10.8 K/mcL LAB HEMETOLOGY METHOD 04/22/2024 11:[address] [facility] RBC 4.30 3.80 - 4.80 M/mcL LAB HEMETOLOGY METHOD 04/22/2024 11:[address] [facility] Hemoglobin 11.0(L) 11.5 - 16.0 g/dL LAB HEMETOLOGY METHOD 04/22/2024 11:[address] [facility] Hematocrit 37.3 35.0 - 47.0 % LAB HEMETOLOGY METHOD 04/22/2024 11:[address] [facility] MCV 87.4 79.0 - 98.0 FL LAB HEMETOLOGY METHOD 04/22/2024 11:34 AM EST [facility] MCH 25.8(L) 27.0 - 32.0 pcg LAB HEMETOLOGY METHOD 04/22/2024 11:[address] [facility] MCHC 29.5(L) 32.0 - 37.0 g/dL LAB HEMETOLOGY METHOD 04/22/2024 11:[address] [facility] RDW 18.0(H) 11.0 - 15.0 % LAB HEMETOLOGY METHOD 04/22/2024 11:[address] [facility] Platelets 600(H) 130 - 400 K/mcL LAB HEMETOLOGY METHOD 04/22/2024 11:[address] [facility] MPV 11.7(H) 7.0 - 11.0 FL LAB HEMETOLOGY METHOD 04/22/2024 11:[address] [facility] NRBC 0.0 <1.0 % LAB HEMETOLOGY METHOD 04/22/2024 11:[address] [facility] NRBC Absolute 0.00 <0.10 K/mcL LAB HEMETOLOGY METHOD 04/22/2024 11:[address] [facility] Blood Venous blood specimen / Unknown Venipuncture / Unknown 04/22/2024 8:06 AM EST 04/22/2024 10:44 AM EST us Damien Kay MD LAB BLOOD ORDERABLES Final Resul t [facility] [address] [place] [address], documented in this encounter Visit Diagnoses Diagnosis Unspecified atrial fibrillation (CMS/HCC) Sepsis, unspecified organism (CMS/HCC) Heart failure, unspecified (CMS/HCC) Heart failure, unspecified Type 2 diabetes mellitus without complications (CMS/HCC) documented in this encounter Care Teams Foam Cutting Supervisor Relationship Specialty Start Date End Date Damien Kay MD [address] [place] [address], [phone] PCP - General Family Medicine 04/11/24 documented as of this encounter
--- OUTSIDE RECORDS SUMMARY | 2024-07-07 13:51 | XMS_ITS | Continuity of Care Document ---
Author Organization [facility], 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 Name Role Phone [facility] OTHER Assessment No assessment [...] Address Organization Details Recorded Time Vascular dementia [id number] Active 2019 VIELKA JIMÉNEZ [address] , [address], [place], [address], [facility] 0 11:42:15 Diabetes mellitus 28637456 Active 2019 VIELKA JIMÉNEZ [address], [address], [place], [address], [facility] 0 11:42:37 Atrial fibrillatio n 12767215 Active 2019 VIELKA JIMÉNEZ [address], [address], [place], [address], [facility] 0 11:43:55 Recurrent falls 444345719 Active 2019 VIELKA JIMÉNEZ [address], [address], [place], [address], [facility] 0 11:44:10 Diastolic heart failure 885007851 Active 2019 VIELKA JIMÉNEZ [address], [address], [place], [address], [facility] 0 11:44:39 Hyperlipide keven 57265899 Active 2019 ALFREDO WATERSJEAN PAULNIVIA IBRAHIMP [address], [address], [place], [address], [facility] 0 11:45:05 Essential hypertensio n 91440986 Active 2019 ALFREDO WATERSMARIJANIVIAP [address], [address], [place], [address], [facility] 0 11:45:23 History of cerebrovasc ular accident 147473133 Active 2019 ALFREDO VLADISLAVNIVIAP [address] , [address], [place], [address], [facility] 0 12:00:03 Insomnia 701990535 Active 2019 ALFREDOSA LOOMIS TOOL REPAIR TECHNICIAN [address] [facility], [address], [place], [address], [facility] 0 12:06:58 Anxiety 88410281 Active 2019 ALFREDO VLADISLAVNIVIAP [address], [address], [place], [address], [facility] 0 12:07:06 Chronic back pain 637987143 Active 2019 ALFREDO LOOMIS TOOL REPAIR TECHNICIAN [address] , [address], [place], [address], [facility] 0 12:18:41 Retention of urine 912397220 Active 2019 ALFREDO LOOMIS TOOL REPAIR TECHNICIAN [address], [address], [place], [address], [facility] 0 12:48:03 Hyperaldost eronism 42859559 Active 2019 VIELKA JIMÉNEZ [address], [address], [place], [address], [facility] 0 13:01:27 Acute depression 580621573 Active 2019 VIELKA JIMÉNEZ [address], [address], [place], [address], [facility] - [facility] 0 08:47:18 Vitamin D deficiency 17220873 Active 2020 VIELKA JIMÉNEZ [address], [address], [place], [address], [facility] - [facility] 1 17:14:42 Gastroesoph ageal reflux disease without esophagitis 972957604 Active 2020 VIELKA JIMÉNEZ [address], [address], [place], [address], [facility] 1 17:18:13 Hypokalemia 78890727 Active 2021 Pam Ruiz MD [address] , [address], [place], [address], [facility] 2 16:55:42 Vertigo 226729832 Active 2021 VIELKA JIMÉNEZ [address] , [address], [place], [address], [facility] 2 12:48:50 Anemia 034601101 Active 2022 ANDREA ENGEL NP [address] [facility], [address], [place], [address], [facility] 3 11:25:41 Mixed anxiety and depressive disorder 355502865 Active 2023 ANDREA ENGEL NP [address] [facility], [address], [place], [address], [facility] 4 10:11:52 Acute nontraumati c kidney injury 8401103448615 03 Active 2023 Loni Love NP [address] [facility], [address], [place], [address], [facility] 4 13:00:33 Chronic kidney disease 383320844 Active 2023 Loni Love NP [address] [facility], [address], [place], [address], [facility] 4 13:00:40 Problem Notes None recorded. Medical Equipment None Reported. Allergies Allergen ID Allergen Name Allergen Category Reaction Reaction Severity Criticality Documentation Date Start Date Code Code System Note Provider Name and Address Organization Details Recorded Time 85584 aspirin medicatio n Not available Not available Not available 08/05/2019 1191 RxNorm GI upset Not Available Not Available Not Available 71091 purified protein derivativ e of tuberculi n [...] lable Vitals Date Recorded Body height Body weight Heart rate Respiratory rate Body temperature Oxygen saturation Oxygen saturation in Arterial blood by Pulse oximetry Systolic blood pressure Diastolic blood pressure Provider Name and Address Organization Details Last Updated DateTime 5 165.1 cm 42897.8 3 g 72 /min 18 /min 98.2 [degF] 95 % 95 % 132 mm[Hg] 60 mm[Hg] Loni Love NP [address] [facility] [address], [place], [address], [email or web address] 5 12:00:07 Social History Question Answer Notes LastModified by Organizat ion Details LastModified Time Tobacco Smoking Status Former Smoker smoked 1 ppd Pam Ruiz MD [address] [facility] [address], [place], [address], [employer] 10/03/2021 16:20:40 Do You Have An Advance Directive? Yes Full Code-use Dialysis, Nutrition And Hydration Short Term - Appears To Have Been Completed Prior To Assignment Of Guardian. [email or web address] Information not available 07/14/2022 What Is Your Level Of Alcohol Consumption? None [id number] Information not available 03/13/2020 How Much Tobacco Do You Chew? None [id number] Information not available 03/13/2020 What Is Your Code Status? Full Code Information not available 10/03/2021 Do You Or Have You Ever Used E-cigarettes Or Vape? Never Used Electronic Cigarettes [id number] Information not available 03/13/2020 Where Do You Live? Other LTC At [facility] Information not available 10/03/2021 Legal Guardian? Yes Decree Uploaded In [facility]; Does Not Authorize Revocation Of HCP. Information not available 10/03/2021 Do You Have A Medical Power Of Dirt Bike Racer? Yes There Is A HCP Uploaded In [facility] But It Is Labeled As Invalid; There Is A HCP Invocation Uploaded In [facility] [email or web address] Information not available 07/14/2022 What Was The Date Of Your Most Recent Tobacco Screening? 09/24/2023 Information not available 09/24/2023 Do You Have An Out Of Hospital DNR? No Information not available 10/03/2021 What Is Your Relationship Status? Information not available 10/03/2021 Do You Or Have You Ever Used Smokeless Tobacco? Never Used Smokeless Tobacco [id number] Information not available 03/13/2020 How Much Tobacco Do You Smoke? No Information not available 10/03/2021 Do You Use Any Illicit Or Recreational Drugs? No Information not available 10/03/2021 Has Tobacco Cessation Counseling Been Provided? No N/A [email or web address] Information not available 07/14/2022 How Many Years Have You Smoked Tobacco? 20 [id number] Information not available 03/13/2020 Do You Or [...] Influenza, high-dose, quadrivalent, PF 1 [facility] 11:48:58 Influenza, split virus, quadrivalent, preservative 2 completed Mally saunders, [facility] 03/12/2022 13:21:44 COVID-19, mRNA, LNP-S, bivalent, PF, 30 mcg/0.3 mL dose 2 completed GERDA LACEY PA-C [address] [facility], [address], [place], [address], [facility] 05/22/2022 10:21:46 pneumococcal polysaccharide PPV23 2 completed GERDA LACEY PA-C [address] [facility], [address], [place], [address], [facility] 07/14/2022 16:07:16 COVID-19, mRNA, LNP-S, bivalent, PF, 30 mcg/0.3 mL dose 3 completed Yola saunders, [facility] 07/06/2023 11:54:06 Influenza, split virus, quadrivalent, preservative 0 completed Conchita saunders, [facility] 02/29/2020 10:48:11 COVID-19, mRNA, LNP-S, PF, 30 mcg/0.3 mL dose 1 completed VIELKA JIMÉNEZ [address] [place] [address], [address], [place], [address], [facility] 07/17/2020 18:20:26 COVID-19, mRNA, LNP-S, PF, 30 mcg/0.3 mL dose 1 completed VIELKA JIMÉNEZ [address] [place] [address], [address], [place], [address], [facility] 07/17/2020 18:20:39 Pneumococcal conjugate PCV 13 6 completed VIELKA JIMÉNEZ [address] [place] [address], [address], [place], [address], [facility] 08/21/2020 18:18:49 pneumococcal polysaccharide PPV23 1 completed VIELKA JIMÉNEZ [address] [place] [address], [address], [place], [address], [facility] 08/21/2020 18:19:12 tetanus toxoid, unspecified formulation 6 completed VIELKA JIMÉNEZ [address] [place] [address], [address], [place], [address], [facility] 08/21/2020 18:19:31 Past Encounters Encounter ID Performer Location Encounter Start Date Encounter Closed Date Diagnosis/Indication Diagnosis SNOMED-CT Code Diagnosis ICD10 Code Diagnosis Note [id number] Loni Love, [facility] [address] [place] [address] 06/01/2024 12:27:47 06/03/2024 15:04:56 Chronic kidney disease 772851032 N18.9 CKD with REINALDO from dehydratio n now improvingC KD improving with med titrations she does appear euvolemic on examencour age po fluidsmetf ormin, lasix, reduced and gabapentin dc'dmonito r bmp weekly for changesavo id nephrotoxi c meds if ableencour age po fluidsmoni torconside r further reducing nephrotoxi c meds as needed, recheck labs weekly with bnp Diastolic heart failure 821938969 I50.32 bp stable and euvolemic todayCHF: diuresed wtih IV lasix and started on po furosemide with potassium repletion. TTE on 04/01 EF 25-30% with mod-severe left ventricula r systolic fx consistent with mid LV Takotsubo. Cardiology consulted: appt pendingstr ess test sched for 06/22/24 NPO 3 hours priorcontf urosemide to 10 mg po qdmetoprol ol 50 mg bid.Entres to low dose decreased to 24-26 bid recentlyem pagliflozi n(jardianc e) 10mg po qdcardiolo gy fu outpt. -nsg to scheduleMo nitor resp. status, fluid status, wts and labs.appea rs euvolemic todaybnp bmp cbc weekly until stable Atrial fibrillation 4943 6004 I48.19 seems controlled AF with RVF: started on amiodarone 200 mg bid for 28 days total, then daily.cont lasix to 10 mg po qdentresto low dose po bid 24-metop rolol 50 mg bidamiodar one 200 mg po bid, change to qd on 05/06eliqu is 5 mg BID for AC.Monitor HR and bleeding risk. Vascular dementia 108557 004 F01.B0 decline expectedco ntinue emotional supportmon itor mental statusBIMS completed 09/24/23 = score 6/15 Essential hypertension 65000040 I10 Last BP stable 130/4Conti nuecontlas ix 10 mg po qdentresto low dose po bid 24-metop rolol 50 mg bidamiodar one 200 mg po bid, changed to qd on 05/06eliqu is 5 mg BID for AC.Monitor BP and labs. Diabetes mellitus 817741 09 E11.9 stable 118-[address] HgA1C 5.1%Record ed BS low-mid 100s.Britney nue metformin 500 mg po daily jardiance 10 mg po dailyMonit or fingerstic ks BID one day/month and HgA1C q 6 months.rep eat bun/cr this week Chronic pain 11040797 G8 9.29 Pain in adequate control.Co ntinueAPAP 650 mg q 6 hrs prnMonitor sxs and need for pain relief Mixed anxi ety and depressive disorder 308986311 F41.8 Followed by Psych.zolo ft dc'd per psych reccontmel atonin 10 mg q hs Monitor mood, behaviors Anemia 810855641 D64.9 labs stable as abvoepast Issues with macrocytic and microcytic anemia in past felt to have severe anemia without scope in hosp given three units PRBCs in hosp..on march 2024 admissionw ith hx of Fe def. anemia.Con tinueFe qd,esomepr azole 40 mg qdRepeat labs improved last weekNo s/s active bleeding.R emains on AC for now.Monito r CBC weekly Adult fail ure to thrive syndrome 399025005 R62.7 pt with failure to thrive in generalsee ms gerd and vomiting resolvedco ntpepcid 20 mg po at 1200zofran prn dose for nausea/vom itingdieti jenelle to eval for food choicesrem bello 15 mg po qhs afterpsych consult for depression esomeprazo le 40 mg qdMonitor sxs.she has a court appt guardian and she is a full code at this time, he is updated and will notify son Luis Fernando, however remains full codeconsid er sending to ER if further decline At increas ed risk for imbalanced nutrition, less than body requirements 974090556 Z91.89 see above failure to thrivethis week weight 99 lbs same as last weekdietic justus followingc ont to have decreased wgt regardless of remeron [id number] Loni Love, LOREN [facility] [address] [facility] [place] [address] 06/27/2024 10:56:03 06/28/2024 14:04:19 Mixed anxiety and depressive disorder 423989541 F41.8 Followed by Psych.walylo ft dc'd per psych rec and doing well in good spiritscon tmelatonin 10 mg q hs Monitor mood, behaviors Chronic ki dney disease 084116678 N18.9 CKD with REINALDO from dehydratio n now improvingC KD improving with med titrations she does appear euvolemic on examencour age po fluidsmetf ormin, lasix, reduced and gabapentin dc'dmonito r bmp weekly for changesavo id nephrotoxi c meds if ableencour age po fluidsmoni torconside r further reducing nephrotoxi c meds as needed, recheck labs weekly with bnp Diastolic heart failure 367382308 I50.32 bp stable and euvolemic todayCHF: diuresed wtih IV lasix and started on po furosemide with potassium repletion. TTE on 04/01 EF 25-30% with mod-severe left ventricula r systolic fx consistent with mid LV Takotsubo. Cardiology consulted: appt pending stress test pendingcon tfurosemid e 10 mg po qdmetoprol ol 50 mg bid.Entres to low dose 24-26 bidempagli flozin(jar diance) 10mg po qdcardiolo gy fu outpt. -nsg to scheduleMo nitor resp. status, fluid status, wts and labs.appea rs euvolemic todaybnp bmp cbc weekly until stable Vascular dementia 211459 004 F01.B0 decline expectedco ntinue emotional supportmon itor mental statusBIMS completed 09/24/23 = score 6/15 Essential hypertension 08390028 I10 bp stable 132/60cont lasix 10 mg po qdentresto low dose po bid 24-26metop rolol 50 mg bidamiodar one 200 mg po qdeliquis 5 mg BID for AC.Monitor BP and labs. Diabetes mellitus 650641 09 E11.9 stableLast HgA1C 5.1%Contin ue metformin 500 mg po daily jardiance 10 mg po dailyMonit or fingerstic ks BID one day/month and HgA1C q 6 months. Chronic pain 56278542 G8 9.29 Pain in adequate control.Co ntinueAPAP 650 mg q 6 hrs prnMonitor sxs and need for pain relief Anemia 019653776 D64.9 labs stablepast Issues with macrocytic and microcytic anemia in past felt to have severe anemia without scope in hosp given three units PRBCs in hosp..on march 2024 admissionw ith hx of Fe def. anemia.Con tinueFe qd,esomepr azole 40 mg qdNo s/s active bleeding.R emains on AC for now.Monito r CBC weekly for now Adult fail ure to thrive syndrome 661850729 R62.7 pt with failure to thrive in generalsee ms gerd and vomiting resolvedco nt06/27 dc pepcidzofr an sched and prn dose for nausea/vom itingdieti jenelle to eval for food choicesrem bello 15 mg po qhs afterpsych consult for depression esomeprazo le 40 mg qdMonitor sxs.she has a court appt guardian and she is a full code at this time, he is updated and will notify son Luis Fernando, however remains full codeconsid er decreasing zofran at meals if tolerating food without nausea at next visistcons ider sending to ER if further decline Atrial fibrillation 4943 6004 I48.19 controlled AF with RVF: started on amiodarone 200 mg bid for 28 days total, then daily.cont lasix to 10 mg po qdentresto low dose po bid 24-metop rolol 50 mg bidamiodar one 200 mg po bid, change to qd on 05/06eliqu is 5 mg BID for AC.Monitor HR and bleeding risk. At [facility] ed risk for imbalanced nutrition, less than body requirements 842382758 Z91.89 see above failure to thriveweig ht stablizing but low 101 lbsdietici an followingr emeron 15 mg po qhs Health Concerns Section Related Observation LastModified by Organization Detai ls LastModified Time None Recorded Concern Status LastModified by Organization Details LastModified Time None Recorded Payers Encounter Date Sequence Insurance Name Policy Number Policy Linares Covered Member ID Linares Member ID Guarantor Name 06/27/2024 2 [place] [facility] Traci Morris [id number] Traci Morris 06/27/2024 1 MEDICARE B-[place] [facility] [employer] Traci Morris [id number] Traci Morris Notes Date Note Type Note Provider Name and Address Organization Details Recorded Time 06/27/2024 text/html Pt is seen for a routine rounding visit today. PMH includes HTN, AODM, Afib on Eliquis, CHF pEF, dementia, hx of CVA with left hemiparesis, anemia, depression/anxiety, chronic back pain, hyperaldosteronism, HLD, insomnia, falls, urinary retention and GERD. Traci has had a overall decline lately in general, has had two recent hospitalizations seen for fu of her REINALDO, CHF and pna. She required med titrations for elevation in bun/cr on 05/23 with decrease lasix from 20mg to 10 mg po qd, decrease metformin from 500 mg po bid to daily for decreased appetite, and dc'd gabapentin. She was also seen by psych, fernanda ponce and now dc'd Last week she required potassium supplement for k of 3.1 and started on potassium 40 meq on and fridays. Labs pending this am for recheck. She has significant weight loss and is followed by the rn social work. She remains on boost supplements and fortified foods. She was started on remeron for appetite, and weight 101 lbs similar in the last month with initial weight loss after hospitalization. On exam, Traci is lying in bed, talkative today and pleasant. She denies any concerns and states she is doing very well. Lungs clear, no edema, and no shortness of breath, dyspnea, or concerns from nursing. She denies pain. MOLST: full code, guardian court appt in place Loni Love NP [address] [facility], [address], [place], [address], [facility] - [facility] 06/27/2024 12:41:49 OBGyn Episode No OBEpisode recorded.
--- OUTSIDE RECORDS SUMMARY | 2024-07-07 13:51 | XMS_ITS | Encounter Summary ---
Author Organization [facility] Address [address] [place] [address] Care Team Providers Care Resources Representative Name Role Phone Damien Kay MD Primary Care Provider [phone] Encounter Details Date Type Department Care Team (Late st Contact Info) Description 04/15/2024 Lab Requisition [facility] - Main Lab [address] [facility] [address] [place] [address] Damien Kay MD [address] [place] [address] [address] [place], [phone] Type 2 diabetes mellitus without complications [...] Diagnosis Comments CBC WITH AUTO DIFFERENTIAL Routine 04/18/2024 5:30 AM EST Type 2 diabetes mellitus without complications (CMS/HCC) CBC AND DIFFERENTIAL Routine 04/18/2024 5:30 AM EST Type 2 diabetes mellitus without complications (CMS/HCC) COMPREHENSIVE METABOLIC PANEL Routine 04/18/2024 5:30 AM EST Type 2 diabetes mellitus without complications (CMS/HCC) documented in this encounter Results * (ABNORMAL) CBC auto differential (04/18/2024 5:30 AM EST) WBC 12.1(H) 4.8 - 10.8 K/[facility] LAB HEMETOLOGY METHOD 04/18/2024 8:34 AM [facility] RBC 4.30 3.80 - 4.80 M/mcL LAB HEMETOLOGY METHOD 04/18/2024 8:34 AM [facility] Hemoglobin 11.0(L) 11.5 - 16.0 g/dL LAB HEMETOLOGY METHOD 04/18/2024 8:34 AM [facility] Hematocrit 37.9 35.0 - 47.0 % LAB HEMETOLOGY METHOD 04/18/2024 8:34 AM [facility] MCV 88.1 79.0 - 98.0 FL LAB HEMETOLOGY METHOD 04/18/2024 8:34 AM [facility] MCH 25.6(L) 27.0 - 32.0 pcg LAB HEMETOLOGY METHOD 04/18/2024 8:34 AM [facility] MCHC 29.0(L) 32.0 - 37.0 g/dL LAB HEMETOLOGY METHOD 04/18/2024 8:34 AM [facility] RDW 17.4(H) 11.0 - 15.0 % LAB HEMETOLOGY METHOD 04/18/2024 8:34 AM [facility] Platelets 570(H) 130 - 400 K/mcL LAB HEMETOLOGY METHOD 04/18/2024 8:34 AM [facility] MPV 11.3(H) 7.0 - 11.0 FL LAB HEMETOLOGY METHOD 04/18/2024 8:34 AM [facility] NRBC 0.0 <1.0 % LAB HEMETOLOGY METHOD 04/18/2024 8:34 AM [facility] NRBC Absolute 0.00 <0.10 K/mcL LAB HEMETOLOGY METHOD 04/18/2024 8:34 AM [facility] Neutrophils Relative 77.9 % LAB HEMETOLOGY METHOD 04/18/2024 8:34 AM [facility] Lymphocytes Relative 12.1 % LAB HEMETOLOGY METHOD 04/18/2024 8:34 AM [facility] Monocytes Relative 8.1 % LAB HEMETOLOGY METHOD 04/18/2024 8:34 AM [facility] Eosinophils Relative 1.0 % LAB HEMETOLOGY METHOD 04/18/2024 8:34 AM [facility] Basophils Relative 0.5 % LAB HEMETOLOGY METHOD 04/18/2024 8:34 AM [facility] Immature Granulocytes Relative 0.4 % LAB HEMETOLOGY METHOD 04/18/2024 8:34 AM [facility] Neutrophils Absolute 9.41(H) 1.50 - 7.00 K/mcL LAB HEMETOLOGY METHOD 04/18/2024 8:34 AM [facility] Lymphocytes Absolute 1.46 1.00 - 5.00 K/mcL LAB HEMETOLOGY METHOD 04/18/2024 8:34 AM [facility] Monocytes Absolute 0.98 0.20 - 1.00 K/mcL LAB HEMETOLOGY METHOD 04/18/2024 8:34 AM [facility] Eosinophils Absolute 0.12 0.00 - 0.50 K/mcL LAB HEMETOLOGY METHOD 04/18/2024 8:34 AM [facility] Basophils Absolute 0.06 0.00 - 0.20 K/mcL LAB HEMETOLOGY METHOD 04/18/2024 8:34 AM [facility] Immature Granulocytes Absolute 0.05(H) 0.00 - 0.03 K/mcL LAB HEMETOLOGY METHOD 04/18/2024 8:34 AM [facility] Blood Venous blood specimen / Unknown Venipuncture / Unknown 04/18/2024 5:30 AM EST 04/18/2024 8:08 AM EST us Damien Kay MD LAB BLOOD ORDERABLES Final Resul t [facility] [address] [place] [address], * (ABNORMAL) Comprehensive metabolic panel (04/18/2024 5:30 AM EST) Sodium 141 133 - 145 mmol/L LAB CHEMISTRY METHOD 04/18/2024 9:07 AM [facility] Potassium 4.4 3.5 - 5.5 mmol/L LAB CHEMISTRY METHOD 04/18/2024 9:07 AM [facility] Chloride 108 96 - 110 mmol/L LAB CHEMISTRY METHOD 04/18/2024 9:07 AM [facility] CO2 25 21 - 32 mmol/L LAB CHEMISTRY METHOD 04/18/2024 9:07 AM [facility] Anion Gap 8 3 - 11 LAB CHEMISTRY METHOD 04/18/2024 9:07 AM [facility] Glucose 126(H) 70 - 100 mg/dL LAB CHEMISTRY METHOD 04/18/2024 9:07 AM [facility] BUN 21 5 - 25 mg/dL LAB CHEMISTRY METHOD 04/18/2024 9:07 AM [facility] Creatinine 1.51(H) 0.50 - 1.10 mg/dL LAB CHEMISTRY METHOD 04/18/2024 9:07 AM [facility] eGFR 37(L) >=60 mL/min/1. 73m2 LAB CHEMISTRY METHOD 04/18/2024 9:07 AM [facility] Comment:Calculation based on the??Chronic Kidney Disease Epidemiology Collaboration (CKD-EPI) equation refit??without adjustment for race. BUN/Creatinine Ratio 13.9 LAB CHEMISTRY METHOD 04/18/2024 9:07 AM [facility] Calcium 9.8 8.5 - 10.5 mg/dL LAB CHEMISTRY METHOD 04/18/2024 9:07 AM [facility] AST (SGOT) 27 10 - 42 unit/L LAB CHEMISTRY METHOD 04/18/2024 9:07 AM [facility] ALT (SGPT) 24 10 - 60 unit/L LAB CHEMISTRY METHOD 04/18/2024 9:07 AM [facility] Alkaline Phosphatase 76 42 - 121 unit/L LAB CHEMISTRY METHOD 04/18/2024 9:07 AM [facility] Total Protein 7.0 6.0 - 8.0 g/dL LAB CHEMISTRY METHOD 04/18/2024 9:07 AM [facility] Albumin 3.1(L) 3.2 - 5.0 g/dL LAB CHEMISTRY METHOD 04/18/2024 9:07 AM [facility] Total Bilirubin 0.3 0.0 - 1.4 mg/dL LAB CHEMISTRY METHOD 04/18/2024 9:07 AM [facility] Blood Venous blood specimen / Unknown Venipuncture / Unknown 04/18/2024 5:30 AM EST 04/18/2024 8:08 AM EST us Damien Kay MD LAB BLOOD ORDERABLES Final Resul t [facility] [address] [place] [address], documented in this encounter Visit Diagnoses Diagnosis Type 2 diabetes mellitus without complications (CMS/HCC) documented in this encounter Care Teams Resources Representative Relationship Specialty Start Date End Date Damien Kay MD [address] [place] [address] [address] [place], [phone] PCP - General Family Medicine 04/11/24 documented as of this encounter
== END ==
LOC: HO.CARD 12:55
PROVIDERS: Visit Provider Nurse Practitioner Family
DX: I42.9 Cardiomyopathy, unspecified (principal)
CPT/HCPCS: 93308

== ENCOUNTER → 2024-07-07 13:04 | Outpatient (BNV) | payer MEDICARE, MEDICAID, SELFPAY | PROVIDERS: Visit Provider Internal Medicine | DX: I42.2 Other hypertrophic cardiomyopathy (principal) | CPT/HCPCS: 93308 ==

== ENCOUNTER 2024-08-31 12:18 | Emergency (ER) | payer MEDICARE, MEDICAID, SELFPAY ==
[2024-08-31] VITALS (8 sets, daily range): BP systolic 125–136; BP diastolic 32–55; PULSE 65–68; RESP 14–20; TEMP 36.7–36.8; O2SAT 98–99; BMI 39.8
--- NOTE | 2024-08-31 12:44 | ECG_ITS ---
Test Reason : anemia Blood Pressure : */* mmHG Vent. Rate : 64 BPM Atrial Rate : * BPM P-R Int : * ms QRS Dur : 88 ms QT Int : 444 ms P-R-T Axes : * -32 25 degrees QTcB Int : 458 ms Normal sinus rhythm Left axis deviation Minimal voltage criteria for LVH, may be normal variant ( R in aVL ) Possible Anterior infarct , age undetermined Abnormal ECG When compared with ECG of 22-Apr-2024 15:01, ST no longer depressed in Lateral leads T wave inversion no longer evident in Lateral leads Referred By: Keara Saleem Electronically Signed By: RAMSES PATEL MD
--- NOTE | 2024-08-31 12:45 | ED_ITS ---
HPI - General Adult General Chief complaint: Recheck/Abnormal Lab/Rx Stated complaint: ABN LABS FROM SNF PER EMS Time Seen by Provider: 08/31/24 12:43 Source: patient and EMS Mode of arrival: EMS Limitations: physical limitation (patient has a history of dementia) History of Present Illness ED Provider: Keara Saleem PA-C HPI narrative: Patient is a 74 year old assigned female at with a history of cardiomyopathy, hemiplegia / hemiparesis of the left side s/p stroke, vascular dementia, atrial fib on eliquis, HTN, anemia, and anxiety presenting to the emergency department today with abnormal labs performed at [facility]. Patient states that she has no complaints or areas of bleeding. [facility] stated that the patient had a critical hemoglobin of 6.4 and hematocrit of 20.6. Patient denies any dizziness, lightheadedness, abdominal pain, nausea, vomiting, fever, chills, blurry vision, double vision, loss of vision, chest pain, difficulty breathing, shortness of breath, back pain, night sweats, pain with urination, increased urinary frequency, increased urinary urgency, blood in her urine or stool, syncope or a near syncopal episode, recent trauma or falls, bowel incontinence, bladder incontinence, or any other complaints at this time. Relieving factors: none Exacerbating factors: none Associated symptoms: denies other symptoms Treatments prior to arrival: none Related Data Home Medications ?Medication ?Instructions ?Recorded ?Confirmed apixaban 5 mg tablet (Eliquis) 5 mg PO BID 03/26/24 05/23/24 atorvastatin 80 mg tablet 80 mg PO BEDTIME 03/26/24 05/23/24 bisacodyl 10 mg rectal suppository 10 mg SC DAILY PRN Constipation 03/26/24 05/23/24 cholecalciferol (vitamin D3) 25 25 mcg PO DAILY 03/26/24 05/23/24 mcg (1,000 unit) tablet clotrimazole 1 % topical cream 1 appl topical DAILY PRN Rash 03/26/24 05/23/24 esomeprazole magnesium 40 mg 40 mg PO DAILY@0630 03/26/24 05/23/24 capsule,delayed release ferrous sulfate 325 mg (65 mg 325 mg PO DAILY 03/26/24 05/23/24 iron) tablet folic acid 1 mg tablet 1 mg PO DAILY 03/26/24 05/23/24 gabapentin 100 mg capsule 100 mg PO BEDTIME 03/26/24 05/23/24 loperamide 2 mg capsule 2 mg PO Q6H PRN Loose Stool 03/26/24 05/23/24 melatonin 5 mg tablet 10 mg PO BEDTIME 03/26/24 05/23/24 metformin 500 mg tablet 500 mg PO BID 03/26/24 05/23/24 omega 0-qkq-jju-fish oil 1,000 mg 1 cap PO DAILY 03/26/24 05/23/24 (120 mg-180 mg) capsule (Fish Oil) sennosides 8.6 mg tablet (senna) 8.6 mg PO DAILY 03/26/24 05/23/24 sertraline 50 mg tablet 100 mg PO DAILY 03/26/24 05/23/24 sodium phosphates 19 gram-7 118 ml SC DAILY PRN Constipation 03/26/24 05/23/24 gram/118 mL enema (Fleet Enema) acetaminophen 325 mg tablet 650 mg PO Q6H PRN Fever Or Pain 04/22/24 05/23/24 famotidine 20 mg tablet (Pepcid) 20 mg PO DAILY@1200 04/22/24 05/23/24 mirtazapine 15 mg tablet (Remeron) See Rx Instructions .Route .COMPLEX 04/22/24 05/23/24 ondansetron HCl 4 mg tablet 4 mg PO TIDWM 04/22/24 05/23/24 Previous Rx's ?Medication ?Instructions ?Recorded amiodarone 200 mg tablet See Rx Instructions .Route 04/08/24 .COMPLEX #56 tabs empagliflozin 10 mg tablet 10 mg PO DAILY #30 tabs 04/08/24 (Jardiance) metoprolol tartrate 50 mg tablet 50 mg PO BID #60 tabs 04/08/24 furosemide 20 mg tablet 20 mg PO DAILY #60 tabs 04/26/24 sacubitril 24 mg-valsartan 26 mg 1 tab PO BID #60 tabs 04/26/24 tablet (Entresto) Allergies Allergy/AdvReac Type Severity Reaction Status Date / Time tuberculin, purified protein Allergy Unknown UNK Verified 08/31/24 12:30 deriva [TB TEST] aspirin [ASA] AdvReac Unknown GI UPSET, Verified 08/31/24 12:30 stomach upset Review of Systems 2 Constitutional: Constitutional: Reports no additional constitutional complaints, Denies chills, Denies fever(s) and Denies night sweats Eyes: Eyes: Reports no additional eye complaints, Denies blurry vision, Denies change in vision, Denies diplopia, Denies eye discharge, Denies loss of vision and Denies eye pain ENT: Denies dizziness Cardiovascular: Cardiovascular: Reports no additional cardiovascular complaints, Denies chest pain, Denies lightheadedness, Denies Loss of Consciousness and Denies dyspnea Respiratory: Respiratory: Reports no additional respiratory complaints and Denies dyspnea Gastrointestinal: Gastrointestinal: Reports no additional gastrointestinal complaints, Denies abdominal pain, Denies melena, Denies hematochezia, Denies change in bowel habits and Denies change in stool character Genitourinary: Genitourinary: Denies hematuria, Denies urinary frequency, Denies dysuria, Denies urinary incontinence, Denies urinary hesitancy and Denies urinary urgency Musculoskeletal: Musculoskeletal: Reports no additional musculoskeletal complaints, Denies numbness and Denies tingling Neurologic: Reports confusion (per her vascular dementia baseline), Denies dizziness, Denies loss of vision, Denies numbness and Denies tingling Psychiatric: Psychiatric: Reports no additional psychiatric complaints and Reports confusion (per her vascular dementia baseline) Endocrine: Endocrine: Reports no additional endocrine complaints Hematologic/Lymphatic: Hematologic/Lymphatic: Reports no additional hematologic/lymphatic complaints Allergic/Immunologic: Allergic/Immunologic: Reports no additional allergic/immunologic complaints [facility] Past Medical History Attestation statement: The following information was validated with the patient. Source: old records reviewed, nursing notes reviewed and other ([facility] [place] [facility] staff provided additional history) Medical History Paroxysmal atrial fibrillation Cardiomyopathy Acute CHF Sepsis Anemia Pneumonia Social History Social History Household Members: Unknown / Unable to assess Housing: Residential Do you presently have visiting nurse or other home services: No Patient Tobacco Use Status: Former Tobacco user Tobacco use type: Cigarette Smoked in Last 30 Days: No e-Cigarette/Vaping Use: Never Used Second Hand Smoke Exposure: No Use of substances other than those prescribed or required for medical reasons: No Advance Directives: Yes Advance Directives on File: Yes Advance Directives Date on File: 04/11/24 Do you have a plan to hurt others: No Plan service: No Physical Exam ED Vital Signs: Vital Signs - 24 hr 08/31/24 12:27 08/31/24 12:29 08/31/24 15:46 Temperature 98.3 F 98.3 F 98.1 F Pulse Rate 65 65 67 Respiratory Rate 18 14 20 Blood Pressure 131/37 L 131/37 L 136/32 L Pulse Oximetry 98 98 98 Oxygen Delivery Method Room Air Room Air Room Air 08/31/24 16:26 Temperature 98.1 F Pulse Rate 67 Respiratory Rate 20 Blood Pressure 136/32 L Pulse Oximetry 98 Oxygen Delivery Method Room Air BMI result Body Mass Index 39.8 Const General: confusion (per her vascular dementia baseline) Nutritional Appearance: well nourished Orientation/consciousness: confusion (per her vascular dementia baseline) Limitations: no limitations HENMT Head: Yes normal to inspection and Yes atraumatic Ears: hearing grossly normal bilaterally and external ears normal General nose exam: Normal external nose present, no nasal discharge noted and no epistaxis Face and sinus: Yes normal facial exam, No abrasion and No laceration Mouth: Normal oral and palatal mucosa present, no drooling and no muffled voice Eyes General: appearance normal, both eyes and all related structures Periorbital: periorbital findings normal Eyelids: Yes eyelids normal Conjunctivae: conjunctivae normal Pupils: Equal, round and reactive pupils present EOM: EOMs intact bilaterally Neck Neck: Yes normal visual inspection, Yes full ROM and Yes no lymphadenopathy Chest Chest palpation & inspection: normal inspection of the chest Resp Effort & Inspection: normal respiratory effort and able to speak in complete sentences GI Inspection: Yes normal to inspection Neuro General: confusion (per her vascular dementia baseline) Cranial nerves: Yes Equal, round and reactive pupils present Cognition (Neuro): normal cognition Extrem General: Yes normal to inspection, Yes full ROM and Yes capillary refill normal Psych Appearance: grossly normal Mental Status: mental status grossly normal Affect: normal affect Attitude: cooperative Thought process: Normal thought process present Thought content: Normal thought content present Insight: Good insight present (Psych) Medical Decision Making Medical Decision Making MDM Narrative: Patient is a 74 year old assigned female at with a history of cardiomyopathy, hemiplegia / hemiparesis of the left side s/p stroke, vascular dementia, atrial fib on eliquis, HTN, anemia, and anxiety presenting to the emergency department today with abnormal labs performed at [facility]. Patient's physical exam is consistent with her baseline. Patient's blood work showed a hemoglobin of 7.3 with a hematocrit 22.4 but were otherwise unremarkable. Patient does not need a transfusion at this time given her current clinical presentation and work up. Patient's EKG was unremarkable. I explained my physical exam findings as well as all test results to the patient. I answered all questions asked by the patient. I stressed the importance of the patient taking her medication as directed (either prescribed or as the over the counter packaging recommends). I stressed the importance of the patient following up with her primary care provider. I stressed the importance of the patient returning to the emergency department immediately if she were to develop any dizziness, shortness of breath, difficulty breathing, chest pain, blurry vision, loss of vision, nausea, vomiting, abdominal pain, fever, chills, back pain, or any other complaints. Patient cleared for discharge back to [facility]. Differential Diagnosis Differential Diagnoses: The differential diagnosis associated with the presentation includes Chronic anemia Admission/Observation Consideration of admission/observation: Escalation of care including admission/observation considered Patient would have been admitted to the hospital had her work up had any findings where hospital admission was appropriate and her clinical presentation warranted hospital admission. Lab Data [facility] Lab Attestation statement: I reviewed the patient's lab results. My interpretation of these results are in the [facility] Rationale portion of this note. 08/31/24 13:09 08/31/24 13:09 Labs: Lab Results 08/31/24 08/31/24 Range/Units 13:08 13:09 WBC 7.7 (4.8-10.8) X10*3/uL RBC 2.44 L D (4.20-5.50) X10*6/uL Hgb 7.3 L D (12.0-16.0) g/dl Hct 22.4 L D (37.0-47.0) % MCV 91.8 (80.0-98.0) fL MCH 29.9 (27.0-33.0) pg MCHC 32.6 (31.0-35.0) g/dl RDW 15.6 (11.0-16.0) % Plt Count 563 H D (160-400) X10*3/uL MPV 9.8 (9.4-12.3) fL Immature Gran % (Auto) 0.3 (0.0-0.4) % Neut % (Auto) 63.0 (45-73) % Lymph % (Auto) 23.1 (20-40) % [place] % (Auto) 10.4 (2-11) % Eos % (Auto) 1.6 (0-4) % Baso % (Auto) 1.6 (0-2) % Lymph # (Auto) 1.8 (1.2-4.9) X10*3/uL [place] # (Auto) 0.8 (0.1-1.2) X10*3/uL Eos # (Auto) 0.1 (0.0-0.4) X10*3/uL Baso # (Auto) 0.1 (0.0-0.2) X10*3/uL Abs Immat Gran (auto) 0.02 (0.00-0.03) X10*3/uL Absolute Neuts (auto) 4.8 (2.0-8.3) x10*3/uL Absolute Nucleated RBC 0.000 (0.0-0.012) X10*3/uL Nucleated RBC % (auto) 0.0 (0.0-0.2) /100WBC PT 14.4 H (10.9-12.4) SEC INR 1.2 H (0.9-1.1) Sodium 141 (135-145) mmol/L Potassium 3.5 (3.3-5.1) mmol/L Chloride 110 H (96-108) mmol/L Carbon Dioxide 23 (22-29) mmol/L Anion Gap 12 (12-20) BUN 15 (9-16) mg/dL Creatinine 0.83 (0.5-1.4) mg/dL Estim Creat Clear Calc 66.2 Estimated GFR > 60 Random Glucose 84 (60-115) mg/dL Calcium 8.5 D (8.4-10.2) mg/dL Magnesium 1.8 (1.6-2.6) mg/dL Total Bilirubin 0.4 (0.0-1.0) mg/dL AST 40 H (5-31) U/L ALT 24 (0-31) U/L Alkaline Phosphatase 68 (39-117) U/L Total Protein 5.9 L (6.5-8.0) g/dL Albumin 3.0 L (3.5-5.0) g/dL Influenza Type A (PCR) NEGATIVE (Negative) Influenza Type B (PCR) NEGATIVE (Negative) RSV RNA Qual (PCR) NEGATIVE (Negative) SARS-CoV-2 RNA (RT-PCR) NEGATIVE (Negative) Blood Type A Positive Antibody Screen NEGATIVE Independent Interpretation I performed an independent interpretation of an: EKG Interpretation: I independently interpreted this EKG and am in agreement with the below findings: Vent. Rate: 64 BPM Atrial Rate: * BPM P-R Int * ms QRS Dur: 88 ms QT Int: 444 ms P-R-T Axes: * -32 25 degrees QTcB Int: 458 ms Junctional rhythm Left axis deviation Minimal voltage criteria for LVH, may be normal variant (R in aVL) Possible Anterior infarct , age undetermined When compared with ECG of 22-Apr-2024 15:01, Junctional rhythm has replaced Sinus rhythm ST no longer depressed in Lateral leads T wave inversion no longer evident in Lateral leads DD/ 1256 Independent Historian Clinical information obtained from an independent historian. History obtained from or confirmed by: EMS (EMS provided additional history and confirmed the history provided by [facility] staff) and Other ([place] care staff provided additional history and confirmed the history provided by EMS) Discharge Plan Discharge Clinical Impression: Chronic anemia Patient Disposition: [facility] Transfer Details: Back to [facility] Instructions: Anemia (ED) Additional Instructions: Hgb today is 7.3 with a hematocrit of 22.4. These levels do not require transfusion at this time. Follow up with your primary care provider. Return to the emergency department immediately if your symptoms worsen or if you develop any numbness, tingling, dizziness, shortness of breath, difficulty breathing, chest pain, blurry vision, loss of vision, nausea, vomiting, abdominal pain, fever, chills, back pain, or any other complaints. Please see the information below about our Patient Portal. If you are not yet enrolled in the [facility] Patient Portal, you will receive an enrollment email invitation following your visit to any [facility] care setting. You may also self-enroll in the Patient Portal by visiting our website: [email or web address] The following information is required to access the Patient Portal: - Your [facility] Medical Record Number - Your personal home email address (must match what is in your electronic medical record, Registration staff can assist with this) - Name - Date of Capabilities of the Patient Portal: - Message some providers - View upcoming appointments - Access your health summary, medical history, and visit history - View current conditions and allergies - View procedure and lab results - View your medications, including guidelines, side effects, and precautions - Complete pre-appointment questionnaires requested by your provider - Ready summary reports of your office visits and procedures To access the Patient Portal Mobile Harry, follow these directions: - Search [email or web address] in the [employer] Store or [employer] Store - Download the Harry - Search for [facility] - Enter your login/password Prescriptions: No Action metformin 500 mg tablet 500 mg PO BID atorvastatin 80 mg tablet 80 mg PO BEDTIME sennosides [senna] 8.6 mg Tablet 8.6 mg PO DAILY loperamide 2 mg capsule 2 mg PO Q6H PRN (Reason: Loose Stool) bisacodyl 10 mg Suppository 10 mg SC DAILY PRN (Reason: Constipation) ferrous sulfate 325 mg (65 mg iron) Tablet 325 mg PO DAILY esomeprazole magnesium 40 mg capsule,delayed release(DR/EC) 40 mg PO DAILY@0630 Fleet Enema 19-7 gram/118 mL Enema 118 ml SC DAILY PRN (Reason: Constipation) folic acid 1 mg Tablet 1 mg PO DAILY gabapentin 100 mg capsule 100 mg PO BEDTIME clotrimazole 1 % Cream 1 appl TOPICAL DAILY PRN (Reason: Rash) Rx Instructions: apply to groin sertraline 50 mg tablet 100 mg PO DAILY cholecalciferol (vitamin D3) 25 mcg (1,000 unit) Tablet 25 mcg PO DAILY melatonin 5 mg Tablet 10 mg PO BEDTIME omega 1-zjo-tmu-fish oil [Fish Oil] 1,000 mg (120 mg-180 mg) Capsule 1 cap PO DAILY Eliquis 5 mg tablet 5 mg PO BID amiodarone 200 mg Tablet See Rx Instructions .ROUTE .COMPLEX Qty: 56 0RF Rx Instructions: 200 mg twice daily for 28 days till 05/06/24, then 200 mg once daily starting 05/07/24 metoprolol tartrate 50 mg Tablet 50 mg PO BID Qty: 60 0RF Protocol: Hold for SBP/HR < HOLD for SBP < : 90 HOLD for HR < : 60 Jardiance 10 mg Tablet 10 mg PO DAILY Qty: 30 0RF acetaminophen 325 mg Tablet 650 mg PO Q6H PRN (Reason: Fever Or Pain) ondansetron HCl 4 mg Tablet 4 mg PO TIDWM famotidine [Pepcid] 20 mg Tablet 20 mg PO DAILY@1200 mirtazapine [Remeron] 15 mg Tablet See Rx Instructions .ROUTE .COMPLEX Rx Instructions: Give 7.5 mg at bedtime for 7 days (until 04/29/24), Then give 15 mg at bedtime start 04/30/24 furosemide 20 mg Tablet 20 mg PO DAILY Qty: 60 0RF Protocol: Hold for SBP< HOLD for SBP < : 90 sacubitril-valsartan [Entresto] 24-26 mg Tablet 1 tab PO BID Qty: 60 0RF Protocol: Hold for SBP< HOLD for SBP < : 90 Referrals: [facility] [Provider Group] (Call to establish and follow up with a primary care provider. If you already have a primary care provider, please follow up with them.) [facility], [facility] [Provider Group] (Call to establish and follow up with a primary care provider. If you already have a primary care provider, please follow up with them.) [facility] [Provider Group] (Call to establish and follow up with a primary care provider. If you already have a primary care provider, please follow up with them.) [facility], [facility] [Provider Group] (Call to establish and follow up with a primary care provider. If you already have a primary care provider, please follow up with them.) [facility] [Provider Group] (Call to establish and follow up with a primary care provider. If you already have a primary care provider, please follow up with them.) Print Language: Mohawk
[2024-08-31 13:14] LABS: MANUAL DIFF FLAG NO
[2024-08-31 13:15] LABS: Basophils Absolute Auto 0.1 X10*3/uL (0.0-0.2); Basophils Percent Auto 1.6 % (0-2); Eosinophils Absolute Auto 0.1 X10*3/uL (0.0-0.4); Eosinophils Percent Auto 1.6 % (0-4); Hematocrit 22.4 % (37.0-47.0); Hemoglobin 7.3 g/dl (12.0-16.0); Imm Gran Abs Auto 0.02 X10*3/uL (0.00-0.03); Imm Gran Pct Auto 0.3 % (0.0-0.4); Lymphocytes Absolute Auto 1.8 X10*3/uL (1.2-4.9); Lymphocytes Percent Auto 23.1 % (20-40); Mean Corpuscular HGB Conc 32.6 g/dl (31.0-35.0); Mean Corpuscular Hemoglobin 29.9 pg (27.0-33.0); Mean Corpuscular Volume 91.8 fL (80.0-98.0); Mean Platelet Volume 9.8 fL (9.4-12.3); Monocytes Absolute Auto 0.8 X10*3/uL (0.1-1.2); Monocytes Percent Auto 10.4 % (2-11); Neutrophils Absolute Auto 4.8 x10*3/uL (2.0-8.3); Platelet Count 563 X10*3/uL (160-400); Red Blood Count 2.44 X10*6/uL (4.20-5.50); Red Cell Distribution Width 15.6 % (11.0-16.0); White Blood Count 7.7 X10*3/uL (4.8-10.8)
[2024-08-31 13:22] LABS: INTERNATIONAL NORM RATIO 1.2 (0.9-1.1); Prothrombin Time 14.4 SEC (10.9-12.4)
[2024-08-31 13:41] LABS: Alanine Aminotransferase 24 U/L (0-31); Alkaline Phosphatase 68 U/L (39-117); Anion Gap 12 (12-20); Aspartate Amino Transferase 40 U/L (5-31); Bilirubin Total 0.4 mg/dL (0.0-1.0); Blood Urea Nitrogen 15 mg/dL (9-16); Calcium 8.5 mg/dL (8.4-10.2); Carbon Dioxide 23 mmol/L (22-29); Chloride 110 mmol/L (96-108); Creatinine Clr Calc Pharmacy 66.2; Estimated Glomerular Filt Rate > 60; Glucose Random 84 mg/dL (60-115); Magnesium 1.8 mg/dL (1.6-2.6); Potassium 3.5 mmol/L (3.3-5.1); Sodium 141 mmol/L (135-145); Total Protein 5.9 g/dL (6.5-8.0)
[2024-08-31 14:12] LABS: Influenza A PCR NEGATIVE (Negative); Influenza B PCR NEGATIVE (Negative); Resp Syncy Virus RNA Qual PCR NEGATIVE (Negative); SARS COV2 PCR INHOUSE NEGATIVE (Negative)
--- OUTSIDE RECORDS SUMMARY | 2024-08-31 15:16 | XMS_ITS | Encounter Summary ---
Author Organization [facility] Address [address] [place] [id number] Care Team Providers Care Collection Systems Foreman Name Role Phone Damien Kay MD Primary Care Provider [phone] Encounter Details Date Type Department Care Team (Late st Contact Info) Description 06/14/2024 Lab Requisition [facility] - Main Lab [address] [facility] [place] [address] Damien Kay MD [address] [facility] [address] [place], [address] Hyperlipidemia, unspecified; Sepsis, unspecified organism (CMS/HCC V24, CMS/HCC V28); Unspecified atrial fibrillation (CMS/HCC V24, CMS/HCC V28); Type 2 diabetes mellitus without complications (CMS/HCC V24, CMS/HCC V28); Heart failure, unspecified (CMS/HCC V24, CMS/HCC V28) Social History Tobacco Use Types Packs/Day Years [...] B-type natriuretic peptide (06/15/2024 8:03 AM EST) BNP 561(H) <=100 pcg/mL LAB CHEMISTRY METHOD 06/15/2024 12:40 PM [facility] Blood Venous blood specimen / Unknown Venipuncture / Unknown 06/15/2024 8:03 AM EST 06/15/2024 11:46 AM EST us Damien Kay MD LAB BLOOD ORDERABLES Final Resul t [facility] [address] [place] [address], * Basic metabolic panel (06/15/2024 8:03 AM EST) Sodium 140 133 - 145 mmol/L LAB CHEMISTRY METHOD 06/15/2024 12:40 PM [facility] Potassium 3.6 3.5 - 5.5 mmol/L LAB CHEMISTRY METHOD 06/15/2024 12:40 PM [facility] Chloride 105 96 - 110 mmol/L LAB CHEMISTRY METHOD 06/15/2024 12:40 PM [facility] CO2 29 21 - 32 mmol/L LAB CHEMISTRY METHOD 06/15/2024 12:40 PM [facility] Anion Gap 6 3 - 11 LAB CHEMISTRY METHOD 06/15/2024 12:40 PM [facility] Glucose 83 70 - 100 mg/dL LAB CHEMISTRY METHOD 06/15/2024 12:40 PM EST [facility] BUN 10 5 - 25 mg/dL LAB CHEMISTRY METHOD 06/15/2024 12:40 PM [facility] Creatinine 0.88 0.50 - 1.10 mg/dL LAB CHEMISTRY METHOD 06/15/2024 12:40 PM [facility] eGFR 70 >=60 mL/min/1. 73m2 LAB CHEMISTRY METHOD 06/15/2024 12:40 PM [facility] Comment:Calculation based on the??Chronic Kidney Disease Epidemiology Collaboration (CKD-EPI) equation refit??without adjustment for race. BUN/Creatinine Ratio 11.4 LAB CHEMISTRY METHOD 06/15/2024 12:40 PM [facility] Calcium 8.8 8.5 - 10.5 mg/dL LAB CHEMISTRY METHOD 06/15/2024 12:40 PM [facility] Blood Venous blood specimen / Unknown Venipuncture / Unknown 06/15/2024 8:03 AM EST 06/15/2024 11:15 AM EST us Damien Kay MD LAB BLOOD ORDERABLES Final Resul t [facility] [address] [place] [address], * (ABNORMAL) Complete blood count (06/15/2024 8:03 AM EST) WBC 9.0 4.8 - 10.8 K/mcL LAB HEMETOLOGY METHOD 06/15/2024 12:38 PM [facility] RBC 3.40(L) 3.80 - 4.80 M/mcL LAB HEMETOLOGY METHOD 06/15/2024 12:38 PM [facility] Hemoglobin 8.9(L) 11.5 - 16.0 g/dL LAB HEMETOLOGY METHOD 06/15/2024 12:38 PM [facility] Hematocrit 29.5(L) 35.0 - 47.0 % LAB HEMETOLOGY METHOD 06/15/2024 12:38 PM [facility] MCV 87.8 79.0 - 98.0 FL LAB HEMETOLOGY METHOD 06/15/2024 12:38 PM [facility] MCH 26.5(L) 27.0 - 32.0 pcg LAB HEMETOLOGY METHOD 06/15/2024 12:38 PM [facility] MCHC 30.2(L) 32.0 - 37.0 g/dL LAB HEMETOLOGY METHOD 06/15/2024 12:38 PM [facility] RDW 24.9(H) 11.0 - 15.0 % LAB HEMETOLOGY METHOD 06/15/2024 12:38 PM [facility] Platelets 628(H) 130 - 400 K/mcL LAB HEMETOLOGY METHOD 06/15/2024 12:38 PM [facility] MPV 11.3(H) 7.0 - 11.0 FL LAB HEMETOLOGY METHOD 06/15/2024 12:38 PM [facility] NRBC 0.0 <1.0 % LAB HEMETOLOGY METHOD 06/15/2024 12:38 PM [facility] NRBC Absolute 0.00 <0.10 K/mcL LAB HEMETOLOGY METHOD 06/15/2024 12:38 PM [facility] Blood Venous blood specimen / Unknown Venipuncture / Unknown 06/15/2024 8:03 AM EST 06/15/2024 11:15 AM EST us Damien Kay MD LAB BLOOD ORDERABLES Final Resul t [facility] [address] [place] [address], documented in this encounter Visit Diagnoses Diagnosis Hyperlipidemia, unspecified Sepsis, unspecified organism ([facility] V24, [facility] V28) Unspecified atrial fibrillation ([facility] V24, [facility] V28) Type 2 diabetes mellitus without complications ([facility] V24, [facility] V28) Heart failure, unspecified ([facility] V24, [facility] V28) Heart failure, unspecified documented in this encounter Care Teams Collection Systems Foreman Relationship Specialty Start Date End Date Damien Kay MD [address] [place] [address], [phone] PCP - General Family Medicine 07/05/24 documented as of this encounter
--- OUTSIDE RECORDS SUMMARY | 2024-08-31 15:16 | XMS_ITS | Encounter Summary ---
Author Organization [facility] Address [id number] [place] [phone] Care Team Providers Care Sausage Stuffer Name Role Phone Damien Kay MD Primary Care Provider [phone] Encounter Details Date Type Department Care Team (Late st Contact Info) Description 08/02/2024 Lab Requisition [facility] - Main Lab 299 [facility] [place] [address] Damien Kay MD 38 [facility] [address] [place], [address] Heart failure, unspecified (CMS/HCC V24, CMS/HCC V28); Sepsis, unspecified organism (CMS/HCC V24, CMS/HCC V28); Hyperlipidemia, unspecified Social History Tobacco Use Types Packs/Day Years [...] Associated Diagnosis Comments COMPLETE BLOOD COUNT Routine 08/03/2024 8:35 AM EDT Heart failure, unspecified (CMS/HCC) Sepsis, unspecified organism (CMS/HCC) Hyperlipidemia, unspecified B-TYPE NATRIURETIC PEPTIDE Routine 08/03/2024 8:35 AM EDT Heart failure, unspecified (CMS/HCC) Sepsis, unspecified organism (CMS/HCC) Hyperlipidemia, unspecified BASIC METABOLIC PANEL Routine 08/03/2024 8:35 AM EDT Heart failure, unspecified (CMS/HCC) Sepsis, unspecified organism (CMS/HCC) Hyperlipidemia, unspecified documented in this encounter Results * (ABNORMAL) B-type natriuretic peptide (08/03/2024 8:35 AM EDT) Pathologist [facility] BNP 457(H) <=100 pcg/mL LAB CHEMISTRY METHOD 08/03/2024 11:31 AM EDT [facility] Blood Venous blood specimen / Unknown Venipuncture / Unknown 08/03/2024 8:35 AM EDT 08/03/2024 10:45 AM EDT us Damien Kay MD LAB BLOOD ORDERABLES Final Resul t [facility] [address] [place] [address], [place] [phone] * (ABNORMAL) Basic metabolic panel (08/03/2024 8:35 AM EDT) [facility] Sodium 144 133 - 145 mmol/L LAB CHEMISTRY METHOD 08/03/2024 12:30 PM [facility] Potassium 3.3(L) 3.5 - 5.5 mmol/L LAB CHEMISTRY METHOD 08/03/2024 12:30 PM [facility] Chloride 111(H) 96 - 110 mmol/L LAB CHEMISTRY METHOD 08/03/2024 12:30 PM [facility] CO2 24 21 - 32 mmol/L LAB CHEMISTRY METHOD 08/03/2024 12:30 PM [facility] Anion Gap 9 3 - 11 LAB CHEMISTRY METHOD 08/03/2024 12:30 PM [facility] Glucose 77 70 - 100 mg/dL LAB CHEMISTRY METHOD 08/03/2024 12:30 PM [facility] BUN 10 5 - 25 mg/dL LAB CHEMISTRY METHOD 08/03/2024 12:30 PM [facility] Creatinine 0.77 0.50 - 1.10 mg/dL LAB CHEMISTRY METHOD 08/03/2024 12:30 PM EDT [facility] eGFR 82 >=60 mL/min/1. 73m2 LAB CHEMISTRY METHOD 08/03/2024 12:30 PM EDT [facility] Comment:Calculation based on the??Chronic Kidney Disease Epidemiology Collaboration (CKD-EPI) equation refit??without adjustment for race. BUN/Creatinine Ratio 13.0 LAB CHEMISTRY METHOD 08/03/2024 12:30 PM EDT [facility] Calcium 8.4(L) 8.5 - 10.5 mg/dL LAB CHEMISTRY METHOD 08/03/2024 12:30 PM EDT [facility] Blood Venous blood specimen / Unknown Venipuncture / Unknown 08/03/2024 8:35 AM EDT 08/03/2024 10:45 AM EDT us Damien Kay MD LAB BLOOD ORDERABLES Final Resul t [facility] [address] [place] [address], * (ABNORMAL) Complete blood count (08/03/2024 8:35 AM EDT) WBC 6.5 4.8 - 10.8 K/mcL LAB HEMETOLOGY METHOD 08/03/2024 11:11 AM EDT [facility] RBC 2.70(L) 3.80 - 4.80 M/mcL LAB HEMETOLOGY METHOD 08/03/2024 11:11 AM EDT [facility] Hemoglobin 8.4(L) 11.5 - 16.0 g/dL LAB HEMETOLOGY METHOD 08/03/2024 11:11 AM [facility] Hematocrit 26.3(L) 35.0 - 47.0 % LAB HEMETOLOGY METHOD 08/03/2024 11:11 AM EDT [facility] MCV 96.3 79.0 - 98.0 FL LAB HEMETOLOGY METHOD 08/03/2024 11:11 AM EDT [facility] MCH 30.8 27.0 - 32.0 pcg LAB HEMETOLOGY METHOD 08/03/2024 11:11 AM EDT [facility] MCHC 31.9(L) 32.0 - 37.0 g/dL LAB HEMETOLOGY METHOD 08/03/2024 11:11 AM EDT [facility] RDW 16.5(H) 11.0 - 15.0 % LAB HEMETOLOGY METHOD 08/03/2024 11:11 AM EDT [facility] Platelets 472(H) 130 - 400 K/mcL LAB HEMETOLOGY METHOD 08/03/2024 11:11 AM EDT [facility] MPV 10.9 7.0 - 11.0 FL LAB HEMETOLOGY METHOD 08/03/2024 11:11 AM EDT [facility] NRBC 0.0 <1.0 % LAB HEMETOLOGY METHOD 08/03/2024 11:11 AM EDT [facility] NRBC Absolute 0.00 <0.10 K/mcL LAB HEMETOLOGY METHOD 08/03/2024 11:11 AM T [facility] Blood Venous blood specimen / Unknown Venipuncture / Unknown 08/03/2024 8:35 AM EDT 08/03/2024 10:45 AM EDT us Damien Kay MD LAB BLOOD ORDERABLES Final Resul t [facility] [address] [place] [address], documented in this encounter Visit Diagnoses Diagnosis Heart failure, unspecified (CMS/HCC V24, CMS/HCC V28) Heart failure, unspecified Sepsis, unspecified organism (CMS/HCC V24, CMS/HCC V28) Hyperlipidemia, unspecified documented in this encounter Care Teams Sausage Stuffer Relationship Specialty Start Date End Date Damien Kay MD [address] [place] [address], [phone] PCP - General Family Medicine 07/05/24 documented as of this encounter
--- OUTSIDE RECORDS SUMMARY | 2024-08-31 15:17 | XMS_ITS | Encounter Summary ---
Author Organization [facility] Address [address] [place] [phone] Care Team Providers Care Cooling Pipe Inspector Name Role Phone Damien Kay MD Primary Care Provider [phone] Encounter Details Date Type Department Care Team (Late st Contact Info) Description 08/09/2024 Lab Requisition [facility] - Main Lab 299 [facility] [address] [place] [address] Damien Kay MD 38 [facility] [address] [place], [address] Heart failure, unspecified (CMS/HCC V24, CMS/HCC [...] Associated Diagnosis Comments COMPLETE BLOOD COUNT Routine 08/10/2024 8:36 AM EDT Heart failure, unspecified (CMS/HCC) Sepsis, unspecified organism (CMS/HCC) Hyperlipidemia, unspecified B-TYPE NATRIURETIC PEPTIDE Routine 08/10/2024 8:36 AM EDT Heart failure, unspecified (CMS/HCC) Sepsis, unspecified organism (CMS/HCC) Hyperlipidemia, unspecified BASIC METABOLIC PANEL Routine 08/10/2024 8:36 AM EDT Heart failure, unspecified (CMS/HCC) Sepsis, unspecified organism (CMS/HCC) Hyperlipidemia, unspecified documented in this encounter Results * (ABNORMAL) B-type natriuretic peptide (08/10/2024 8:36 AM EDT) Pathologist [facility] BNP 869(H) <=100 pcg/mL LAB CHEMISTRY METHOD 08/10/2024 11:[address] [facility] Blood Venous blood specimen / Unknown Venipuncture / Unknown 08/10/2024 8:36 AM EDT 08/10/2024 10:45 AM EDT us Damien Kay MD LAB BLOOD ORDERABLES Final Resul t [facility] [address] [place] [address], [place] [phone] * Basic metabolic panel (08/10/2024 8:36 AM EDT) [facility] Sodium 138 133 - 145 mmol/L LAB CHEMISTRY METHOD 08/10/2024 12:03 PM [facility] Potassium 4.1 3.5 - 5.5 mmol/L LAB CHEMISTRY METHOD 08/10/2024 12:03 PM [facility] Chloride 107 96 - 110 mmol/L LAB CHEMISTRY METHOD 08/10/2024 12:03 PM [facility] CO2 27 21 - 32 mmol/L LAB CHEMISTRY METHOD 08/10/2024 12:03 PM [facility] Anion Gap 4 3 - 11 LAB CHEMISTRY METHOD 08/10/2024 12:03 PM [facility] Glucose 89 70 - 100 mg/dL LAB CHEMISTRY METHOD 08/10/2024 12:03 PM [facility] BUN 10 5 - 25 mg/dL LAB CHEMISTRY METHOD 08/10/2024 12:03 PM [facility] Creatinine 0.87 0.50 - 1.10 mg/dL LAB CHEMISTRY METHOD 08/10/2024 12:[address] [facility] eGFR 71 >=60 mL/min/1. 73m2 LAB CHEMISTRY METHOD 08/10/2024 12:[address] [facility] Comment:Calculation based on the??Chronic Kidney Disease Epidemiology Collaboration (CKD-EPI) equation refit??without adjustment for race. BUN/Creatinine Ratio 11.5 LAB CHEMISTRY METHOD 08/10/2024 12:[address] [facility] Calcium 8.6 8.5 - 10.5 mg/dL LAB CHEMISTRY METHOD 08/10/2024 12:[address] [facility] Blood Venous blood specimen / Unknown Venipuncture / Unknown 08/10/2024 8:36 AM EDT 08/10/2024 10:45 AM EDT us Damien Kay MD LAB BLOOD ORDERABLES Final Resul t [facility] [address] [place] [address], [place] [phone] * (ABNORMAL) Complete blood count (08/10/2024 8:36 AM EDT) WBC 6.8 4.8 - 10.8 K/mcL LAB HEMETOLOGY METHOD 08/10/2024 10:[address] [facility] RBC 2.90(L) 3.80 - 4.80 M/mcL LAB HEMETOLOGY METHOD 08/10/2024 10:[address] [facility] Hemoglobin 8.8(L) 11.5 - 16.0 g/dL LAB HEMETOLOGY METHOD 08/10/2024 10:[address] [facility] Hematocrit 27.8(L) 35.0 - 47.0 % LAB HEMETOLOGY METHOD 08/10/2024 10:[address] [facility] MCV 97.2 79.0 - 98.0 FL LAB HEMETOLOGY METHOD 08/10/2024 10:[address] [facility] MCH 30.8 27.0 - 32.0 pcg LAB HEMETOLOGY METHOD 08/10/2024 10:[address] [facility] MCHC 31.7(L) 32.0 - 37.0 g/dL LAB HEMETOLOGY METHOD 08/10/2024 10:[address] [facility] RDW 15.9(H) 11.0 - 15.0 % LAB HEMETOLOGY METHOD 08/10/2024 10:[address] [facility] Platelets 479(H) 130 - 400 K/mcL LAB HEMETOLOGY METHOD 08/10/2024 10:[address] [facility] MPV 10.9 7.0 - 11.0 FL LAB HEMETOLOGY METHOD 08/10/2024 10:[address] [facility] NRBC 0.0 <1.0 % LAB HEMETOLOGY METHOD 08/10/2024 10:[address] [facility] NRBC Absolute 0.00 <0.10 K/mcL LAB HEMETOLOGY METHOD 08/10/2024 10:[address] [facility] Blood Venous blood specimen / Unknown Venipuncture / Unknown 08/10/2024 8:36 AM EDT 08/10/2024 10:45 AM EDT us Damien Kay MD LAB BLOOD ORDERABLES Final Resul t [facility] [address] [place] [address], documented in this encounter Visit Diagnoses Diagnosis Heart failure, unspecified (CMS/HCC V24, CMS/[facility] V28) Heart failure, unspecified Sepsis, unspecified organism (CMS/HCC V24, CMS/HCC V28) Hyperlipidemia, unspecified documented in this encounter Care Teams Cooling Pipe Inspector Relationship Specialty Start Date End Date Damien Kay MD [address], [phone] PCP - General Family Medicine 07/05/24 documented as of this encounter
--- OUTSIDE RECORDS SUMMARY | 2024-08-31 15:17 | XMS_ITS | Encounter Summary ---
Author Organization [facility] Address [address] [place] [phone] Care Team Providers Care Fiscal Accountant Name Role Phone Damien Kay MD Primary Care Provider [phone] Encounter Details Date Type Department Care Team (Late st Contact Info) Description 08/30/2024 Lab Requisition [facility] - Main Lab [address] [facility] [place] [address] Damien Kay MD 38 [facility] [address] [place], [phone] Heart failure, unspecified (CMS/HCC V24, CMS/HCC [...] Associated Diagnosis Comments COMPLETE BLOOD COUNT Routine 08/31/2024 6:37 AM EDT Heart failure, unspecified (CMS/HCC V24, CMS/HCC V28) Sepsis, unspecified organism (CMS/HCC V24, CMS/HCC V28) Hyperlipidemia, unspecified B-TYPE NATRIURETIC PEPTIDE Routine 08/31/2024 6:37 AM EDT Heart failure, unspecified (CMS/HCC V24, CMS/HCC V28) Sepsis, unspecified organism (CMS/HCC V24, CMS/HCC V28) Hyperlipidemia, unspecified BASIC METABOLIC PANEL Routine 08/31/2024 6:37 AM EDT Heart failure, unspecified ([facility] V24, [facility] V28) Sepsis, unspecified organism ([facility] V24, [facility] V28) Hyperlipidemia, unspecified documented in this encounter Results * (ABNORMAL) B-type natriuretic peptide (08/31/2024 6:37 AM EDT) Pathologist [facility] BNP 710(H) <=100 pcg/mL LAB CHEMISTRY METHOD 08/31/2024 11:[address] [facility] Blood Venous blood specimen / Unknown Venipuncture / Unknown 08/31/2024 6:37 AM EDT 08/31/2024 11:13 AM EDT us Damien Kay MD LAB BLOOD ORDERABLES Final Resul t [facility] [address] [place] [address], [place] [phone] * Basic metabolic panel (08/31/2024 6:37 AM EDT) Pathologist [facility] Sodium 140 133 - 145 mmol/L LAB CHEMISTRY METHOD 08/31/2024 12:[address] [facility] Potassium 3.5 3.5 - 5.5 mmol/L LAB CHEMISTRY METHOD 08/31/2024 12:[address] [facility] Chloride 106 96 - 110 mmol/L LAB CHEMISTRY METHOD 08/31/2024 12:41 PM [facility] CO2 28 21 - 32 mmol/L LAB CHEMISTRY METHOD 08/31/2024 12:[address] [facility] Anion Gap 6 3 - 11 LAB CHEMISTRY METHOD 08/31/2024 12:41 PM [facility] Glucose 85 70 - 100 mg/dL LAB CHEMISTRY METHOD 08/31/2024 12:[address] [facility] BUN 16 5 - 25 mg/dL LAB CHEMISTRY METHOD 08/31/2024 12:[address] [facility] Creatinine 0.85 0.50 - 1.10 mg/dL LAB CHEMISTRY METHOD 08/31/2024 12:[address] [facility] eGFR 72 >=60 mL/min/1. 73m2 LAB CHEMISTRY METHOD 08/31/2024 12:[address] [facility] Comment:Calculation based on the??Chronic Kidney Disease Epidemiology Collaboration (CKD-EPI) equation refit??without adjustment for race. BUN/Creatinine Ratio 18.8 LAB CHEMISTRY METHOD 08/31/2024 12:[address] [facility] Calcium 8.6 8.5 - 10.5 mg/dL LAB CHEMISTRY METHOD 08/31/2024 12:[address] [facility] Blood Venous blood specimen / Unknown Venipuncture / Unknown 08/31/2024 6:37 AM EDT 08/31/2024 11:13 AM EDT us Damien Kay MD LAB BLOOD ORDERABLES Final Resul t [facility] [address] [place] [address], [place] [phone] * (ABNORMAL) Complete blood count (08/31/2024 6:37 AM EDT) WBC 5.8 4.8 - 10.8 K/mcL LAB HEMETOLOGY METHOD 08/31/2024 11:[address] [facility] RBC 2.20(L) 3.80 - 4.80 M/mcL LAB HEMETOLOGY METHOD 08/31/2024 11:[address] [facility] Hemoglobin 6.4(LL) 11.5 - 16.0 g/dL LAB HEMETOLOGY METHOD 08/31/2024 11:[address] [facility] Hematocrit 20.6(L) 35.0 - 47.0 % LAB HEMETOLOGY METHOD 08/31/2024 11:[address] [facility] MCV 95.0 79.0 - 98.0 FL LAB HEMETOLOGY METHOD 08/31/2024 11:[address] [facility] MCH 28.8 27.0 - 32.0 pcg LAB HEMETOLOGY METHOD 08/31/2024 11:[address] [facility] MCHC 30.3(L) 32.0 - 37.0 g/dL LAB HEMETOLOGY METHOD 08/31/2024 11:[address] [facility] RDW 15.5(H) 11.0 - 15.0 % LAB HEMETOLOGY METHOD 08/31/2024 11:[address] [facility] Platelets 541(H) 130 - 400 K/mcL LAB HEMETOLOGY METHOD 08/31/2024 11:[address] [facility] MPV 10.5 7.0 - 11.0 FL LAB HEMETOLOGY METHOD 08/31/2024 11:[address] [facility] NRBC 0.0 <1.0 % LAB HEMETOLOGY METHOD 08/31/2024 11:[address] [facility] NRBC Absolute 0.00 <0.10 K/mcL LAB HEMETOLOGY METHOD 08/31/2024 11:[address] [facility] Blood Venous blood specimen / Unknown Venipuncture / Unknown 08/31/2024 6:37 AM EDT 08/31/2024 11:13 AM EDT us Damien Kay MD LAB BLOOD ORDERABLES Final Resul t [facility] [address] [place] [address], documented in this encounter Visit Diagnoses Diagnosis Heart failure, unspecified ([facility] V24, [facility] V28) Heart failure, unspecified Sepsis, unspecified organism ([facility] V24, [facility] V28) Hyperlipidemia, unspecified documented in this encounter Care Teams Fiscal Accountant Relationship Specialty Start Date End Date Damien Kay MD [address] [place] [address], [phone] PCP - General Family Medicine 07/05/24 documented as of this encounter
--- OUTSIDE RECORDS SUMMARY | 2024-08-31 15:17 | XMS_ITS | Encounter Summary ---
Author Organization [facility] Address [address] [place] [phone] Care Team Providers Care Manager Of Production Name Role Phone Damien Kay MD Primary Care Provider [phone] Encounter Details Date Type Department Care Team (Late st Contact Info) Description 05/14/2024 Lab Requisition [facility] - Main Lab [address] [facility] [place] [address] Damien Kay MD 38 [facility] [address] [place], [phone] Type 2 diabetes mellitus without complications (CMS/HCC V24, CMS/HCC V28) Social History Tobacco [...] AM EST) WBC 11.2(H) 4.8 - 10.8 K/mcL LAB HEMETOLOGY METHOD 05/16/2024 9:23 AM [facility] RBC 3.90 3.80 - 4.80 M/mcL LAB HEMETOLOGY METHOD 05/16/2024 9:23 AM [facility] Hemoglobin 9.9(L) 11.5 - 16.0 g/dL LAB HEMETOLOGY METHOD 05/16/2024 9:23 AM [facility] Hematocrit 33.8(L) 35.0 - 47.0 % LAB HEMETOLOGY METHOD 05/16/2024 9:23 AM [facility] MCV 87.8 79.0 - 98.0 FL LAB HEMETOLOGY METHOD 05/16/2024 9:23 AM [facility] MCH 25.7(L) 27.0 - 32.0 pcg LAB HEMETOLOGY METHOD 05/16/2024 9:23 AM [facility] MCHC 29.3(L) 32.0 - 37.0 g/dL LAB HEMETOLOGY METHOD 05/16/2024 9:23 AM [facility] RDW 19.8(H) 11.0 - 15.0 % LAB HEMETOLOGY METHOD 05/16/2024 9:23 AM [facility] Platelets 729(H) 130 - 400 K/mcL LAB HEMETOLOGY METHOD 05/16/2024 9:23 AM [facility] MPV 10.7 7.0 - 11.0 FL LAB HEMETOLOGY METHOD 05/16/2024 9:23 AM [facility] NRBC 0.0 <1.0 % LAB HEMETOLOGY METHOD 05/16/2024 9:23 AM [facility] NRBC Absolute 0.00 <0.10 K/mcL LAB HEMETOLOGY METHOD 05/16/2024 9:23 AM [facility] Neutrophils Relative 71.2 % LAB HEMETOLOGY METHOD 05/16/2024 9:23 AM [facility] Lymphocytes Relative 16.4 % LAB HEMETOLOGY METHOD 05/16/2024 9:23 AM [facility] Monocytes Relative 8.1 % LAB HEMETOLOGY METHOD 05/16/2024 9:23 AM [facility] Eosinophils Relative 2.3 % LAB HEMETOLOGY METHOD 05/16/2024 9:23 AM [facility] Basophils Relative 1.2 % LAB HEMETOLOGY METHOD 05/16/2024 9:23 AM [facility] Immature Granulocytes Relative 0.8 % LAB HEMETOLOGY METHOD 05/16/2024 9:23 AM [facility] Neutrophils Absolute 7.95(H) 1.50 - 7.00 K/mcL LAB HEMETOLOGY METHOD 05/16/2024 9:23 AM [facility] Lymphocytes Absolute 1.83 1.00 - 5.00 K/mcL LAB HEMETOLOGY METHOD 05/16/2024 9:23 AM [facility] Monocytes Absolute 0.91 0.20 - 1.00 K/mcL LAB HEMETOLOGY METHOD 05/16/2024 9:23 AM [facility] Eosinophils Absolute 0.26 0.00 - 0.50 K/mcL LAB HEMETOLOGY METHOD 05/16/2024 9:23 AM [facility] Basophils Absolute 0.13 0.00 - 0.20 K/mcL LAB HEMETOLOGY METHOD 05/16/2024 9:23 AM [facility] Immature Granulocytes Absolute 0.09(H) 0.00 - 0.03 K/mcL LAB HEMETOLOGY METHOD 05/16/2024 9:23 AM [facility] Blood Venous blood specimen / Unknown Venipuncture / Unknown 05/16/2024 4:53 AM EST 05/16/2024 8:29 AM EST us Damien Kay MD LAB BLOOD ORDERABLES Final Resul t [facility] [address] [place] [address], [place] [phone] * (ABNORMAL) Comprehensive metabolic panel (05/16/2024 4:53 AM EST) Sodium 135 133 - 145 mmol/L LAB CHEMISTRY METHOD 05/16/2024 9:46 AM [facility] Potassium 4.0 3.5 - 5.5 mmol/L LAB CHEMISTRY METHOD 05/16/2024 9:46 AM [facility] Chloride 100 96 - 110 mmol/L LAB CHEMISTRY METHOD 05/16/2024 9:46 AM [facility] CO2 24 21 - 32 mmol/L LAB CHEMISTRY METHOD 05/16/2024 9:46 AM [facility] Anion Gap 11 3 - 11 LAB CHEMISTRY METHOD 05/16/2024 9:46 AM [facility] Glucose 87 70 - 100 mg/dL LAB CHEMISTRY METHOD 05/16/2024 9:46 AM [facility] BUN 47(H) 5 - 25 mg/dL LAB CHEMISTRY METHOD 05/16/2024 9:46 AM [facility] Creatinine 2.14(H) 0.50 - 1.10 mg/dL LAB CHEMISTRY METHOD 05/16/2024 9:46 AM [facility] eGFR 24(L) >=60 mL/min/1. 73m2 LAB CHEMISTRY METHOD 05/16/2024 9:46 AM [facility] Comment:Calculation based on the??Chronic Kidney Disease Epidemiology Collaboration (CKD-EPI) equation refit??without adjustment for race. BUN/Creatinine Ratio 22.0 LAB CHEMISTRY METHOD 05/16/2024 9:46 AM [facility] Calcium 8.8 8.5 - 10.5 mg/dL LAB CHEMISTRY METHOD 05/16/2024 9:46 AM [facility] AST (SGOT) 31 10 - 42 unit/L LAB CHEMISTRY METHOD 05/16/2024 9:46 AM [facility] ALT (SGPT) 22 10 - 60 unit/L LAB CHEMISTRY METHOD 05/16/2024 9:46 AM [facility] Alkaline Phosphatase 76 42 - 121 unit/L LAB CHEMISTRY METHOD 05/16/2024 9:46 AM [facility] Total Protein 6.2 6.0 - 8.0 g/dL LAB CHEMISTRY METHOD 05/16/2024 9:46 AM [facility] Albumin 2.2(L) 3.2 - 5.0 g/dL LAB CHEMISTRY METHOD 05/16/2024 9:46 AM [facility] Total Bilirubin 0.2 0.0 - 1.4 mg/dL LAB CHEMISTRY METHOD 05/16/2024 9:46 AM [facility] Blood Venous blood specimen / Unknown Venipuncture / Unknown 05/16/2024 4:53 AM EST 05/16/2024 8:29 AM EST us Damien Kay MD LAB BLOOD ORDERABLES Final Resul t [facility] [address] [place] [address], documented in this encounter Visit Diagnoses Diagnosis Type 2 diabetes mellitus without complications (CMS/HCC V24, CMS/HCC V28) documented in this encounter Care Teams Manager Of Production Relationship Specialty Start Date End Date Damien Kay MD [address] [place] [address], [phone] PCP - General Family Medicine 07/05/24 documented as of this encounter
--- OUTSIDE RECORDS SUMMARY | 2024-08-31 15:17 | XMS_ITS | Encounter Summary ---
Author Organization [facility] Address [id number] [place] [phone] Care Team Providers Care Outreach Nurse Name Role Phone Damien Kay MD Primary Care Provider [phone] Encounter Details Date Type Department Care Team (Late st Contact Info) Description 05/07/2024 Lab Requisition [facility] - Main Lab [address] [facility] [place] [address] Damien Kay MD [address] [facility] [address] [place], [phone] Type 2 diabetes mellitus without complications [...] K/mcL LAB HEMETOLOGY METHOD 05/09/2024 9:43 AM [facility] LAB RBC 3.80 3.80 - 4.80 M/mcL LAB HEMETOLOGY METHOD 05/09/2024 9:43 AM [facility] LAB Hemoglobin 9.6(L) 11.5 - 16.0 g/dL LAB HEMETOLOGY METHOD 05/09/2024 9:43 AM [facility] LAB Hematocrit 32.0(L) 35.0 - 47.0 % LAB HEMETOLOGY METHOD 05/09/2024 9:43 AM [facility] LAB MCV 84.2 79.0 - 98.0 FL LAB HEMETOLOGY METHOD 05/09/2024 9:43 AM [facility] LAB MCH 25.3(L) 27.0 - 32.0 pcg LAB HEMETOLOGY METHOD 05/09/2024 9:43 AM [facility] LAB MCHC 30.0(L) 32.0 - 37.0 g/dL LAB HEMETOLOGY METHOD 05/09/2024 9:43 AM [facility] LAB RDW 18.6(H) 11.0 - 15.0 % LAB HEMETOLOGY METHOD 05/09/2024 9:43 AM [facility] LAB Platelets 604(H) 130 - 400 K/mcL LAB HEMETOLOGY METHOD 05/09/2024 9:43 AM [facility] LAB MPV 10.4 7.0 - 11.0 FL LAB HEMETOLOGY METHOD 05/09/2024 9:43 AM [facility] LAB NRBC 0.0 <1.0 % LAB HEMETOLOGY METHOD 05/09/2024 9:43 AM [facility] LAB NRBC Absolute 0.00 <0.10 K/mcL LAB HEMETOLOGY METHOD 05/09/2024 9:43 AM [facility] LAB Neutrophils Relative 68.9 % LAB HEMETOLOGY METHOD 05/09/2024 9:43 AM [facility] LAB Lymphocytes Relative 14.8 % LAB HEMETOLOGY METHOD 05/09/2024 9:43 AM [facility] LAB Monocytes Relative 8.9 % LAB HEMETOLOGY METHOD 05/09/2024 9:43 AM [facility] LAB Eosinophils Relative 5.9 % LAB HEMETOLOGY METHOD 05/09/2024 9:43 AM [facility] LAB Basophils Relative 1.0 % LAB HEMETOLOGY METHOD 05/09/2024 9:43 AM [facility] LAB Immature Granulocytes Relative 0.5 % LAB HEMETOLOGY METHOD 05/09/2024 9:43 AM [facility] LAB Neutrophils Absolute 5.95 1.50 - 7.00 K/mcL LAB HEMETOLOGY METHOD 05/09/2024 9:43 AM [facility] LAB Lymphocytes Absolute 1.28 1.00 - 5.00 K/mcL LAB HEMETOLOGY METHOD 05/09/2024 9:43 AM [facility] LAB Monocytes Absolute 0.77 0.20 - 1.00 K/mcL LAB HEMETOLOGY METHOD 05/09/2024 9:43 AM [facility] LAB Eosinophils Absolute 0.51(H) 0.00 - 0.50 K/mcL LAB HEMETOLOGY METHOD 05/09/2024 9:43 AM [facility] LAB Basophils Absolute 0.09 0.00 - 0.20 K/mcL LAB HEMETOLOGY METHOD 05/09/2024 9:43 AM [facility] LAB Immature Granulocytes Absolute 0.04(H) 0.00 - 0.03 K/mcL LAB HEMETOLOGY METHOD 05/09/2024 9:43 AM [facility] LAB Blood Venous blood specimen / Unknown Venipuncture / Unknown 05/09/2024 4:44 AM EST 05/09/2024 9:34 AM EST us Damien Kay MD LAB BLOOD ORDERABLES Final Resul t [facility] [address] [place] [address], [place] [phone] * (ABNORMAL) Comprehensive metabolic panel (05/09/2024 4:44 AM EST) Sodium 134 133 - 145 mmol/L LAB CHEMISTRY METHOD 05/09/2024 10:12 AM [facility] LAB Potassium 3.7 3.5 - 5.5 mmol/L LAB CHEMISTRY METHOD 05/09/2024 10:12 AM [facility] LAB Chloride 97 96 - 110 mmol/L LAB CHEMISTRY METHOD 05/09/2024 10:12 AM [facility] LAB CO2 29 21 - 32 mmol/L LAB CHEMISTRY METHOD 05/09/2024 10:12 AM [facility] LAB Anion Gap 8 3 - 11 LAB CHEMISTRY METHOD 05/09/2024 10:12 AM [facility] LAB Glucose 84 70 - 100 mg/dL LAB CHEMISTRY METHOD 05/09/2024 10:12 AM [facility] BUN 23 5 - 25 mg/dL LAB CHEMISTRY METHOD 05/09/2024 10:12 AM [facility] LAB Creatinine 1.28(H) 0.50 - 1.10 mg/dL LAB CHEMISTRY METHOD 05/09/2024 10:12 AM [facility] LAB eGFR 45(L) >=60 mL/min/1. 73m2 LAB CHEMISTRY METHOD 05/09/2024 10:12 AM [facility] LAB Comment:Calculation based on the??Chronic Kidney Disease Epidemiology Collaboration (CKD-EPI) equation refit??without adjustment for race. BUN/Creatinine Ratio 18.0 LAB CHEMISTRY METHOD 05/09/2024 10:12 AM [facility] LAB Calcium 8.9 8.5 - 10.5 mg/dL LAB CHEMISTRY METHOD 05/09/2024 10:12 AM [facility] LAB AST (SGOT) 22 10 - 42 unit/L LAB CHEMISTRY METHOD 05/09/2024 10:12 AM [facility] LAB ALT (SGPT) 20 10 - 60 unit/L LAB CHEMISTRY METHOD 05/09/2024 10:12 AM [facility] LAB Alkaline Phosphatase 72 42 - 121 unit/L LAB CHEMISTRY METHOD 05/09/2024 10:12 AM [facility] Total Protein 6.0 6.0 - 8.0 g/dL LAB CHEMISTRY METHOD 05/09/2024 10:12 AM [facility] LAB Albumin 2.4(L) 3.2 - 5.0 g/dL LAB CHEMISTRY METHOD 05/09/2024 10:12 AM [facility] LAB Total Bilirubin 0.4 0.0 - 1.4 mg/dL LAB CHEMISTRY METHOD 05/09/2024 10:12 AM [facility] LAB Blood Venous blood specimen / Unknown Venipuncture / Unknown 05/09/2024 4:44 AM EST 05/09/2024 9:34 AM EST us Damien Kay MD LAB BLOOD ORDERABLES Final Resul t [facility] [address] [place] [address], documented in this encounter Visit Diagnoses Diagnosis Type 2 diabetes mellitus without complications (CMS/HCC V24, CMS/HCC V28) documented in this encounter Care Teams Outreach Nurse Relationship Specialty Start Date End Date Damien Kay MD [address] [place] [address], [phone] PCP - General Family Medicine 07/05/24 documented as of this encounter
--- OUTSIDE RECORDS SUMMARY | 2024-08-31 15:17 | XMS_ITS | Encounter Summary ---
Author Organization [facility] Address [address] [place] [id number] Care Team Providers Care Gauger Delivery Name Role Phone Damien Kay MD Primary Care Provider [phone] Encounter Details Date Type Department Care Team (Late st Contact Info) Description 05/17/2024 Lab Requisition [facility] - Main Lab [address] [facility] [place] [address] Damien Kay MD 38 [facility] [address] [place], [phone] Unspecified atrial fibrillation (CMS/HCC V24, CMS/HCC V28); [...] mmol/L LAB CHEMISTRY METHOD 05/19/2024 11:23 AM [facility] LAB Potassium 4.1 3.5 - 5.5 mmol/L LAB CHEMISTRY METHOD 05/19/2024 11:23 AM [facility] LAB Chloride 102 96 - 110 mmol/L LAB CHEMISTRY METHOD 05/19/2024 11:23 AM [facility] LAB CO2 23 21 - 32 mmol/L LAB CHEMISTRY METHOD 05/19/2024 11:23 AM [facility] LAB Anion Gap 11 3 - 11 LAB CHEMISTRY METHOD 05/19/2024 11:23 AM [facility] LAB Glucose 81 70 - 100 mg/dL LAB CHEMISTRY METHOD 05/19/2024 11:23 AM [facility] LAB BUN 57(H) 5 - 25 mg/dL LAB CHEMISTRY METHOD 05/19/2024 11:23 AM [facility] LAB Creatinine 2.71(H) 0.50 - 1.10 mg/dL LAB CHEMISTRY METHOD 05/19/2024 11:23 AM [facility] LAB eGFR 18(L) >=60 mL/min/1. 73m2 LAB CHEMISTRY METHOD 05/19/2024 11:23 AM [facility] LAB Comment:Calculation based on the??Chronic Kidney Disease Epidemiology Collaboration (CKD-EPI) equation refit??without adjustment for race. BUN/Creatinine Ratio 21.0 LAB CHEMISTRY METHOD 05/19/2024 11:23 AM [facility] LAB Calcium 8.9 8.5 - 10.5 mg/dL LAB CHEMISTRY METHOD 05/19/2024 11:23 AM [facility] LAB Blood Venous blood specimen / Unknown Venipuncture / Unknown 05/19/2024 5:53 AM EST 05/19/2024 9:36 AM EST Damien Kay MD LAB BLOOD ORDERABLES Final Resul t [facility] [address] [place] [address], * (ABNORMAL) Complete blood count (05/19/2024 5:53 AM EST) WBC 10.7 4.8 - 10.8 K/mcL LAB HEMETOLOGY METHOD 05/19/2024 10:51 AM EST [facility] LAB RBC 3.70(L) 3.80 - 4.80 M/mcL LAB HEMETOLOGY METHOD 05/19/2024 10:51 AM [facility] LAB Hemoglobin 9.5(L) 11.5 - 16.0 g/dL LAB HEMETOLOGY METHOD 05/19/2024 10:51 AM [facility] LAB Hematocrit 31.8(L) 35.0 - 47.0 % LAB HEMETOLOGY METHOD 05/19/2024 10:51 AM EST [facility] LAB MCV 85.3 79.0 - 98.0 FL LAB HEMETOLOGY METHOD 05/19/2024 10:51 AM [facility] LAB MCH 25.5(L) 27.0 - 32.0 pcg LAB HEMETOLOGY METHOD 05/19/2024 10:51 AM [facility] LAB MCHC 29.9(L) 32.0 - 37.0 g/dL LAB HEMETOLOGY METHOD 05/19/2024 10:51 AM [facility] LAB RDW 19.5(H) 11.0 - 15.0 % LAB HEMETOLOGY METHOD 05/19/2024 10:51 AM [facility] LAB Platelets 668(H) 130 - 400 K/mcL LAB HEMETOLOGY METHOD 05/19/2024 10:51 AM [facility] LAB MPV 11.2(H) 7.0 - 11.0 FL LAB HEMETOLOGY METHOD 05/19/2024 10:51 AM EST [facility] LAB NRBC 0.0 <1.0 % LAB HEMETOLOGY METHOD 05/19/2024 10:51 AM EST [facility] LAB NRBC Absolute 0.00 <0.10 K/mcL LAB HEMETOLOGY METHOD 05/19/2024 10:51 AM EST [facility] LAB Blood Venous blood specimen / Unknown Venipuncture / Unknown 05/19/2024 5:53 AM EST 05/19/2024 9:37 AM EST us Damien Kay MD LAB BLOOD ORDERABLES Final Resul t [facility] [address] [place] [address], documented in this encounter Visit Diagnoses Diagnosis Unspecified atrial fibrillation (CMS/HCC V24, CMS/HCC V28) Type 2 diabetes mellitus without complications (CMS/HCC V24, CMS/HCC V28) Heart failure, unspecified (CMS/HCC V24, CMS/HCC V28) Heart failure, unspecified documented in this encounter Care Teams Gauger Delivery Relationship Specialty Start Date End Date Damien Kay MD [address] [place] [address] [address] [place], [phone] PCP - General Family Medicine 07/05/24 documented as of this encounter
--- OUTSIDE RECORDS SUMMARY | 2024-08-31 15:17 | XMS_ITS | Continuity of Care Document ---
Author Organization [facility], [facility] Address [address] [place] [address] Care Team Providers Care Stocking Inspector Name Role Phone KEKE BISHOP - 3RD FLOOR OTHER Assessment No assessment recorded. Plan of Treatment Reminders Order Date Submit Date Provider Last Modified By Organization Details Last Modified Time Details Appointments Acute Rounding Visit 2024 12:01P Joceline Love NP Not available Not available Not available Lab None recorded. Referral None recorded. Procedures None recorded. Surgeries None recorded. Imaging None recorded. Medication Orders None recorded. Patient TargetsNo targets recorded. Patient InstructionsNo instructions recorded. Reason for Referral None Reported. Problems Name Problem SNOMED Code Status Onset Date Resolution Date Notes Provider Name and Address Organization Details Recorded Time Vascular dementia 747952401 Active 2019 VIELKA JIMÉNEZ [address], [address], [facility] [employer] 0 11:42:15 Diabetes mellitus 75197511 Active 2019 VIELKA JIMÉNEZ [address], [address], [place], [address], [facility] [employer] 0 11:42:37 Atrial fibrillatio n 23512960 Active 2019 VIELKA JIMÉNEZ [address], [address], [place], [address], [facility] [employer] 0 11:43:55 Recurrent falls 646853414 Active 2019 VIELKA JIMÉNEZ [address], [address], [place], [address], [facility] [employer] 0 11:44:10 Diastolic heart failure 236601137 Active 2019 VIELKA JIMÉNEZ [address], [address], [place], [address], [facility] 0 11:44:39 Hyperlipide keven 52160471 Active 2019 VIELKA JIMÉNEZ [address], [address], [place], [address], [place] [facility] 0 11:45:05 Essential hypertensio n 05339823 Active 2019 NIVIA JIMÉNEZP [address] , [address], [place], [address], [place] [facility] 0 11:45:23 History of cerebrovasc ular accident 667736421 Active 2019 NIVIA JIMÉNEZP [address] , [address], [place], [address], [facility] 0 12:00:03 Insomnia 481429723 Active 2019 VIELKA JIMÉNEZ [address] [facility], [address], [place], [address], [facility] 0 12:06:58 Anxiety 81119038 Active 2019 VIELKA JIMÉNEZ [address] [facility], [address], [place], [address], [facility] 0 12:07:06 Chronic back pain 814360292 Active 2019 NIVIA JIMNÉEZP [address] [facility], [address], [place], [address], [facility] 0 12:18:41 Retention of urine 449634417 Active 2019 NIVIA JIMÉNEZP [address], [address], [place], [address], [facility] 0 12:48:03 Hyperaldost eronism 88677653 Active 2019 NIVIA JIMÉNEZP [address], [address], [place], [address], [facility] 0 13:01:27 Acute depression 781128229 Active 2019 NIVIA JIMÉNEZP [address], [address], [place], [address], [facility] 0 08:47:18 Vitamin D deficiency 21299624 Active 2020 ALFREDO WATERSJEAN PAULNIVIA IBRAHIMP [address], [address], [place], [address], [facility] 1 17:14:42 Gastroesoph ageal reflux disease without esophagitis 393741203 Active 2020 NIVIA JIÉMNEZP [address], [address], [place], [address], [facility] 1 17:18:13 Hypokalemia 77598037 Active 2021 Pam Ruiz MD [address], [address], [place], [address], [facility] 2 16:55:42 Vertigo 911483178 Active 2021 NIVIA JIMÉNEZP [address], [address], [place], [address], [facility] 2 12:48:50 Anemia 236111072 Active 2022 ANDREA ENGEL NP [address], [address], [place], [address], [facility] 3 11:25:41 Mixed anxiety and depressive disorder 267332559 Active 2023 ANDREA ENGEL NP [address], [address], [place], [address], [facility] 4 10:11:52 Acute nontraumati c kidney injury 8770916204242 03 Active 2023 oLni Love NP [address], [address], [place], [address], [facility] 4 13:00:33 Chronic kidney disease 721020968 Active 2023 Loni Love NP [address], [address], [place], [address], [facility] 4 13:00:40 Problem Notes None recorded. Medical Equipment None Reported. Allergies Allergen ID Allergen Name Allergen Category Reaction Reaction Severity Criticality Documentation Date Start Date Code Code System Note Provider Name and Address Organization Details Recorded Time 82357 aspirin medicatio n Not available Not available Not available 08/05/2019 1191 RxNorm GI upset Not Available Not Available Not Available 72672 purified protein derivativ e of tuberculi n [...] Details Last Updated DateTime 5 165.1 cm 16.3 kg/m2 76243.0 5 g 67 /min 18 /min 97.6 [degF] 96 % 96 % 128 mm[Hg] 66 mm[Hg] Loni Love NP [address], [place], [address], [facility] [employer] 5 12:02:19 Social History Question Answer Notes LastModified by Organizat ion Details LastModified Time Tobacco Smoking Status Former Smoker smoked 1 ppd Pam Ruiz MD [address], [place], [address], [facility] [employer] 10/03/2021 16:20:40 Do You Have An Advance Directive? Yes Full Code-use Dialysis, Nutrition And Hydration Short Term - Appears To Have Been Completed Prior To Assignment Of Guardian. [email or web address] Information not available 07/14/2022 What Is Your Level Of Alcohol Consumption? None [id number] Information not available 03/13/2020 How Much Tobacco Do You Chew? None [id number] Information not available 03/13/2020 What Is Your Code Status? Full Code Information not available 10/03/2021 Do You Or Have You Ever Used E-cigarettes Or Vape? Never Used Electronic Cigarettes [id number] Information not available 03/13/2020 Where Do You Live? Other LTC At [facility] Information not available 10/03/2021 Legal Guardian? Yes Decree Uploaded In [facility]; Does Not Authorize Revocation Of HCP. Information not available 10/03/2021 Do You Have A Medical Power Of Shingle Cutter? Yes There Is A HCP Uploaded In [facility] But It Is Labeled As Invalid; There Is A HCP Invocation Uploaded In [facility] [email or web address] Information not available 07/14/2022 What Was The Date Of Your Most Recent Tobacco Screening? 09/24/2023 [email or web address] Information not available 09/24/2023 Do You Have An Out Of Hospital DNR? No Information not available 10/03/2021 What Is Your Relationship Status? Information not available 10/03/2021 Do You Or Have You Ever Used Smokeless Tobacco? Never Used Smokeless Tobacco [id number] Information not available 03/13/2020 How Much Tobacco Do You Smoke? No Information not available 10/03/2021 Do You Use Any Illicit Or Recreational Drugs? No Information not available 10/03/2021 Has Tobacco Cessation Counseling Been Provided? No N/A [email or web address] Information not available 07/14/2022 How Many Years Have You Smoked Tobacco? 20 [id number] Information not available 03/13/2020 Do You Or [...] Influenza, high-dose, quadrivalent, PF 1 [facility] 11:48:58 Influenza, split virus, quadrivalent, preservative 2 [facility]/2022 13:21:44 COVID-19, mRNA, LNP-S, bivalent, PF, 30 mcg/0.3 mL dose 2 completed GERDA LACEY PA-C [address], [address], [place], [address], [facility] 05/22/2022 10:21:46 pneumococcal polysaccharide PPV23 2 completed GERDA LACEY PA-C [address], [address], [place], [address], [facility] 07/14/2022 16:07:16 COVID-19, mRNA, LNP-S, bivalent, PF, 30 mcg/0.3 mL dose 3 completed Yola Allen null, [facility] 07/06/2023 11:54:06 Influenza, split virus, quadrivalent, preservative 0 completed Conchita Roy null, [facility] 02/29/2020 10:48:11 COVID-19, mRNA, LNP-S, PF, 30 mcg/0.3 mL dose 1 completed VIELKA JIMÉNEZ [address] [facility], [address], [place], [address], [facility] 07/17/2020 18:20:26 COVID-19, mRNA, LNP-S, PF, 30 mcg/0.3 mL dose 1 completed VIELKA JIMÉNEZ [address] [facility], [address], [place], [address], [facility] 07/17/2020 18:20:39 Pneumococcal conjugate PCV 13 6 completed VIELKA JIMÉNEZ [address] [facility], [address], [place], [address], [facility] 08/21/2020 18:18:49 pneumococcal polysaccharide PPV23 1 completed VIELKA JIMÉNEZ [address] [facility], [address], [place], [address], [facility] 08/21/2020 18:19:12 tetanus toxoid, unspecified formulation 6 completed ALFREDO LOOMIS, GLOBAL LOGISTICS ANALYST [address], [address], [place], [address], [facility] 08/21/2020 18:19:31 Past Encounters Encounter ID Performer Location Encounter Start Date Encounter Closed Date Diagnosis/Indication Diagnosis SNOMED-CT Code Diagnosis ICD10 Code Diagnosis Note [id number] Loni Love NP [facility] [address] [address] 08/05/2024 11:28:29 08/08/2024 15:43:28 Adult failure to thrive syndrome 555328774 R62.7 continued weight losson supplement sdietary to followreme catina 15mg qhs if decline continues Vascular dementia 987218 004 F01.B0 baseline dementiagu ardianship in placeconti nue supportive caremonito r for behaviors Diastolic heart failure 458607661 I50.32 contentres to 24-26 mg bidlasix 10 mg qam, of note decreased recentlymo nitor respirator y statusmoni tor bnp as ordered with slight increase in bnp 457-howeve r appears euvolemic today Anxiety 46117528 F41.1 with increased anxiety and agitation yesterdayart trazodone 12.5 mg po q 6 hours prn anixety x 14 daysstart urinalysis to rule out infection with new behaviorsp sych to eval [id number] Loni Love NP [facility] [address] [address] 08/08/2024 10:16:10 08/10/2024 15:21:43 Anxiety 83534329 F41.1 with increased anxiety and agitation last week, now resolvingconttra zodone 12.5 mg po q 6 hours prn anixety x 14 daysurinal ysis to rule out infection with new behaviors ordered but refused to give sample or straight cathwill hold off on abx for now as behaviors are resolved per nursingpsy ch to eval Adult fail ure to thrive syndrome 482647776 R62.7 continued weight losson supplement sdietary to followreme catina 15mg qhs Vascular dementia 077623 004 F01.B0 baseline dementiagu ardianship in placeconti nue supportive caremonito r for behaviors [id number] Loin Love NP [facility] [place] [address] [place] [address] 08/25/2024 12:58:43 08/29/2024 13:08:29 Adult failure to thrive syndrome 434245064 R62.7 continued weight loss in general but up 1 lb in the last monthon supplement sdietary to followreme catina 15mg qhs Vascular dementia 737851 004 F01.B0 baseline dementiagu ardianship in placeconti nue supportive caremonito r for behaviors Diastolic heart failure 202940935 I50.32 overall appears euvolemic and NADcontent malvin 24-26 mg bid4/10 increase lasix from 10 mg qam to 20 mg, as bnp is doubled to 1090 on 08/24monitor respirator y statusmoni tor bnp as ordered Anemia 240165326 D64.9 labs stable however h/h trending downpast Issues with macrocytic and microcytic anemia in past felt to have severe anemia without scope in hosp given three units PRBCs in hosp..on march 2024 admissionw ith hx of Fe def. anemia.Con tinueFe qd,4/ increase omeprazole 40 mg from qd to bidheme test stools x3No s/s active bleeding.R emains on AC for now.Monito r CBC weekly for now Atrial fibrillation 4943 6004 I48.19 controlled AF with RVF: started on amiodarone 200 mg bid for 28 days total, then daily.cont 4/ increase lasix to 20 mg po qd for high bnpentrest o low dose po bid 24-26metop rolol 50 mg bidamiodar one 200 mg po qdeliquis 2.5 mg BID for AC.Monitor HR and bleeding risk. [id number] Loni Love NP [facility] [place] [address] [place] [address] 08/31/2024 12:01:23 08/31/2024 12:17:03 Anemia 819660313 D64.9 past Issues with macrocytic and microcytic anemia in past felt to have severe anemia without scope in hosp given three units PRBCs in hosp..on march 2024 admissionw ith hx of Fe def. anemia.Con tinueFe qd,omepraz ole 40 mg recently increased to bidon eliquishem e test stools x3No s/s active bleeding known send to ER 911 for critical hgb of 6.4 Health Concerns Section Related Observation LastModified by Organization Detai ls LastModified Time None Recorded Concern Status LastModified by Organization Details LastModified Time None Recorded Payers Encounter Date Sequence Insurance Name Policy Number Policy Linares Covered Member ID Linares Member ID Guarantor Name 08/31/2024 2 [place] [facility] Traci Davisonzyn [id number] Traci Davisonyeyo 08/31/2024 1 [place] B[place] [employer] Traci Kingsley Wegrzyn [id number] Traci Davisoncintiayn Notes Date Note Type Note Provider Name and Address Organization Details Recorded Time 08/31/2024 text/html Pt is a 73 yo f, LTC resident seen for an acute visit. PMH includes HTN, AODM, Afib on Eliquis, CHF pEF, dementia, hx of CVA with left hemiparesis, anemia, depression/anxiet y, chronic back pain, hyperaldosteronis m, HLD, insomnia, falls, urinary retention and GERD. Traci's is followed with routine labs for her anemia on eliquis for her afib.Nursing notified this STRAP MAKER her hgb is 6.4 and hct 20.6. Will send to Er for transfusion. On exam, pt is lying in bed in NAD. She is pale and pleasantly confused at baseline. She denies any complaints. Breathing unlabored and NAD. No edema to ankles or overt fluid in lungs. Nursing denies any bloody stools lately or other complaints. Nursing staff today are not aware of bloody stools and state she has loose stools at baseline. MOLST: full code, guardian court appt in place Loni Love, LOREN [address] [facility], [address], [place], [address], [facility] [employer] 08/31/2024 12:17:01 OBGyn Episode No OBEpisode recorded.
--- OUTSIDE RECORDS SUMMARY | 2024-08-31 15:17 | XMS_ITS | Encounter Summary ---
Author Organization [facility] Address [address] [place] [address] Care Team Providers Care Procedures Nurse Name Role Phone Damien Kay MD Primary Care Provider [phone] Encounter Details Date Type Department Care Team (Late st Contact Info) Description 07/26/2024 Lab Requisition [facility] - Main Lab [address] [facility] [place] [address] Damien Kay MD [address] [place] [address] [place], [address] Heart failure, unspecified (CMS/HCC V24, CMS/HCC [...] as of this encounter Visit Diagnoses Diagnosis Heart failure, unspecified (CMS/HCC V24, CMS/HCC V28) Heart failure, unspecified Sepsis, unspecified organism (CMS/HCC V24, CMS/HCC V28) Hyperlipidemia, unspecified documented in this encounter Care Teams Procedures Nurse Relationship Specialty Start Date End Date Damien Kay MD [address] [facility] [address] [place], [address] PCP - General Family Medicine 07/05/24 documented as of this encounter
--- OUTSIDE RECORDS SUMMARY | 2024-08-31 15:17 | XMS_ITS | Encounter Summary ---
Author Organization [facility] Address [address] [place] [address] Care Team Providers Care Supervisor Brine Name Role Phone Damien Kay MD Primary Care Provider [phone] Encounter Details Date Type Department Care Team (Late st Contact Info) Description 04/29/2024 Lab Requisition [facility] - Main Lab [address] [facility] [place] [address] Damien Kay MD [address] [facility] [address] [place], [address] Type 2 diabetes mellitus without complications [...] K/mcL LAB HEMETOLOGY METHOD 05/02/2024 10:43 AM [facility] RBC 3.60(L) 3.80 - 4.80 M/mcL LAB HEMETOLOGY METHOD 05/02/2024 10:43 AM [facility] Hemoglobin 9.2(L) 11.5 - 16.0 g/dL LAB HEMETOLOGY METHOD 05/02/2024 10:43 AM [facility] Hematocrit 30.4(L) 35.0 - 47.0 % LAB HEMETOLOGY METHOD 05/02/2024 10:43 AM [facility] MCV 85.2 79.0 - 98.0 FL LAB HEMETOLOGY METHOD 05/02/2024 10:43 AM [facility] MCH 25.8(L) 27.0 - 32.0 pcg LAB HEMETOLOGY METHOD 05/02/2024 10:43 AM [facility] MCHC 30.3(L) 32.0 - 37.0 g/dL LAB HEMETOLOGY METHOD 05/02/2024 10:43 AM [facility] RDW 17.8(H) 11.0 - 15.0 % LAB HEMETOLOGY METHOD 05/02/2024 10:43 AM [facility] Platelets 454(H) 130 - 400 K/mcL LAB HEMETOLOGY METHOD 05/02/2024 10:43 AM [facility] MPV 10.9 7.0 - 11.0 FL LAB HEMETOLOGY METHOD 05/02/2024 10:43 AM [facility] NRBC 0.0 <1.0 % LAB HEMETOLOGY METHOD 05/02/2024 10:43 AM [facility] NRBC Absolute 0.00 <0.10 K/mcL LAB HEMETOLOGY METHOD 05/02/2024 10:43 AM [facility] Neutrophils Relative 70.8 % LAB HEMETOLOGY METHOD 05/02/2024 10:43 AM [facility] Lymphocytes Relative 14.5 % LAB HEMETOLOGY METHOD 05/02/2024 10:43 AM [facility] Monocytes Relative 9.1 % LAB HEMETOLOGY METHOD 05/02/2024 10:43 AM [facility] Eosinophils Relative 4.4 % LAB HEMETOLOGY METHOD 05/02/2024 10:43 AM [facility] Basophils Relative 0.9 % LAB HEMETOLOGY METHOD 05/02/2024 10:43 AM [facility] Immature Granulocytes Relative 0.3 % LAB HEMETOLOGY METHOD 05/02/2024 10:43 AM [facility] Neutrophils Absolute 7.65(H) 1.50 - 7.00 K/mcL LAB HEMETOLOGY METHOD 05/02/2024 10:43 AM [facility] Lymphocytes Absolute 1.57 1.00 - 5.00 K/mcL LAB HEMETOLOGY METHOD 05/02/2024 10:43 AM [facility] Monocytes Absolute 0.99 0.20 - 1.00 K/mcL LAB HEMETOLOGY METHOD 05/02/2024 10:43 AM [facility] Eosinophils Absolute 0.48 0.00 - 0.50 K/mcL LAB HEMETOLOGY METHOD 05/02/2024 10:43 AM [facility] Basophils Absolute 0.10 0.00 - 0.20 K/mcL LAB HEMETOLOGY METHOD 05/02/2024 10:43 AM [facility] Immature Granulocytes Absolute 0.03 0.00 - 0.03 K/mcL LAB HEMETOLOGY METHOD 05/02/2024 10:43 AM [facility] Blood Venous blood specimen / Unknown Venipuncture / Unknown 05/02/2024 5:51 AM EST 05/02/2024 10:24 AM EST us Damien Kay MD LAB BLOOD ORDERABLES Final Resul t [facility] [address] [place] [address], [place] [phone] * (ABNORMAL) Comprehensive metabolic panel (05/02/2024 5:51 AM EST) Sodium 136 133 - 145 mmol/L LAB CHEMISTRY METHOD 05/02/2024 1:07 PM [facility] Potassium 3.5 3.5 - 5.5 mmol/L LAB CHEMISTRY METHOD 05/02/2024 1:07 PM [facility] Chloride 101 96 - 110 mmol/L LAB CHEMISTRY METHOD 05/02/2024 1:07 PM [facility] CO2 23 21 - 32 mmol/L LAB CHEMISTRY METHOD 05/02/2024 1:07 PM [facility] Anion Gap 12(H) 3 - 11 LAB CHEMISTRY METHOD 05/02/2024 1:07 PM [facility] Glucose 96 70 - 100 mg/dL LAB CHEMISTRY METHOD 05/02/2024 1:07 PM [facility] BUN 23 5 - 25 mg/dL LAB CHEMISTRY METHOD 05/02/2024 1:07 PM [facility] Creatinine 1.38(H) 0.50 - 1.10 mg/dL LAB CHEMISTRY METHOD 05/02/2024 1:07 PM [facility] eGFR 41(L) >=60 mL/min/1. 73m2 LAB CHEMISTRY METHOD 05/02/2024 1:07 PM [facility] Comment:Calculation based on the??Chronic Kidney Disease Epidemiology Collaboration (CKD-EPI) equation refit??without adjustment for race. BUN/Creatinine Ratio 16.7 LAB CHEMISTRY METHOD 05/02/2024 1:07 PM [facility] Calcium 9.2 8.5 - 10.5 mg/dL LAB CHEMISTRY METHOD 05/02/2024 1:07 PM [facility] AST (SGOT) 30 10 - 42 unit/L LAB CHEMISTRY METHOD 05/02/2024 1:07 PM [facility] ALT (SGPT) 29 10 - 60 unit/L LAB CHEMISTRY METHOD 05/02/2024 1:07 PM [facility] Alkaline Phosphatase 68 42 - 121 unit/L LAB CHEMISTRY METHOD 05/02/2024 1:07 PM [facility] Total Protein 5.7(L) 6.0 - 8.0 g/dL LAB CHEMISTRY METHOD 05/02/2024 1:07 PM [facility] Albumin 2.4(L) 3.2 - 5.0 g/dL LAB CHEMISTRY METHOD 05/02/2024 1:07 PM [facility] Total Bilirubin 0.4 0.0 - 1.4 mg/dL LAB CHEMISTRY METHOD 05/02/2024 1:07 PM [facility] Blood Venous blood specimen / Unknown Venipuncture / Unknown 05/02/2024 5:51 AM EST 05/02/2024 10:26 AM EST us Damien Kay MD LAB BLOOD ORDERABLES Final Resul t [facility] [address] [place] [address], documented in this encounter Visit Diagnoses Diagnosis Type 2 diabetes mellitus without complications (CMS/HCC V24, CMS/HCC V28) documented in this encounter Care Teams Supervisor Brine Relationship Specialty Start Date End Date Damien Kay MD [address] [place] [address], [address] PCP - General Family Medicine 07/05/24 documented as of this encounter
--- OUTSIDE RECORDS SUMMARY | 2024-08-31 15:17 | XMS_ITS | Encounter Summary ---
Author Organization [facility] Address [address] [place] [phone] Care Team Providers Care Linux Unix Administrator Name Role Phone Damien Kay MD Primary Care Provider [phone] Encounter Details Date Type Department Care Team (Late st Contact Info) Description 06/21/[address] [facility] - Main Lab 299 [facility] [place] [address] Damien Kay MD [address] [facility] [address] [place], [address] Hyperlipidemia, unspecified; Sepsis, unspecified organism (CMS/HCC V24, CMS/HCC V28); Heart failure, unspecified [...] B-type natriuretic peptide (06/22/2024 5:24 AM EST) [facility] BNP 911(H) <=100 pcg/mL LAB CHEMISTRY METHOD 06/22/2024 11:17 AM EST [facility] Blood Venous blood specimen / Unknown Venipuncture / Unknown 06/22/2024 5:24 AM EST 06/22/2024 10:34 AM EST us Damien Kay MD LAB BLOOD ORDERABLES Final Resul t [facility] [address] [place] [address], [place] [phone] * (ABNORMAL) Basic metabolic panel (06/22/2024 5:24 AM EST) [facility] Sodium 141 133 - 145 mmol/L LAB CHEMISTRY METHOD 06/22/2024 12:30 PM [facility] Potassium 3.1(L) 3.5 - 5.5 mmol/L LAB CHEMISTRY METHOD 06/22/2024 12:30 PM [facility] Chloride 107 96 - 110 mmol/L LAB CHEMISTRY METHOD 06/22/2024 12:30 PM [facility] CO2 25 21 - 32 mmol/L LAB CHEMISTRY METHOD 06/22/2024 12:30 PM [facility] Anion Gap 9 3 - 11 LAB CHEMISTRY METHOD 06/22/2024 12:30 PM [facility] Glucose 82 70 - 100 mg/dL LAB CHEMISTRY METHOD 06/22/2024 12:30 PM [facility] BUN 9 5 - 25 mg/dL LAB CHEMISTRY METHOD 06/22/2024 12:30 PM [facility] Creatinine 0.79 0.50 - 1.10 mg/dL LAB CHEMISTRY METHOD 06/22/2024 12:30 PM [facility] eGFR 80 >=60 mL/min/1. 73m2 LAB CHEMISTRY METHOD 06/22/2024 12:30 PM [facility] Comment:Calculation based on the??Chronic Kidney Disease Epidemiology Collaboration (CKD-EPI) equation refit??without adjustment for race. BUN/Creatinine Ratio 11.4 LAB CHEMISTRY METHOD 06/22/2024 12:30 PM [facility] Calcium 8.5 8.5 - 10.5 mg/dL LAB CHEMISTRY METHOD 06/22/2024 12:30 PM [facility] Blood Venous blood specimen / Unknown Venipuncture / Unknown 06/22/2024 5:24 AM EST 06/22/2024 10:34 AM EST us Damien Kay MD LAB BLOOD ORDERABLES Final Resul t [facility] [address] [place] [address], [place] [phone] * (ABNORMAL) Complete blood count (06/22/2024 5:24 AM EST) WBC 7.5 4.8 - 10.8 K/mcL LAB HEMETOLOGY METHOD 06/22/2024 10:58 AM [facility] RBC 2.90(L) 3.80 - 4.80 M/mcL LAB HEMETOLOGY METHOD 06/22/2024 10:58 AM [facility] Hemoglobin 7.7(L) 11.5 - 16.0 g/dL LAB HEMETOLOGY METHOD 06/22/2024 10:58 AM [facility] Hematocrit 24.8(L) 35.0 - 47.0 % LAB HEMETOLOGY METHOD 06/22/2024 10:58 AM [facility] MCV 86.1 79.0 - 98.0 FL LAB HEMETOLOGY METHOD 06/22/2024 10:58 AM [facility] MCH 26.7(L) 27.0 - 32.0 pcg LAB HEMETOLOGY METHOD 06/22/2024 10:58 AM [facility] MCHC 31.0(L) 32.0 - 37.0 g/dL LAB HEMETOLOGY METHOD 06/22/2024 10:58 AM [facility] RDW 25.0(H) 11.0 - 15.0 % LAB HEMETOLOGY METHOD 06/22/2024 10:58 AM [facility] Platelets 447(H) 130 - 400 K/mcL LAB HEMETOLOGY METHOD 06/22/2024 10:58 AM [facility] MPV 11.1(H) 7.0 - 11.0 FL LAB HEMETOLOGY METHOD 06/22/2024 10:58 AM [facility] NRBC 0.0 <1.0 % LAB HEMETOLOGY METHOD 06/22/2024 10:58 AM [facility] NRBC Absolute 0.00 <0.10 K/mcL LAB HEMETOLOGY METHOD 06/22/2024 10:58 AM [facility] Blood Venous blood specimen / Unknown Venipuncture / Unknown 06/22/2024 5:24 AM EST 06/22/2024 10:34 AM EST us Damien Kay MD LAB BLOOD ORDERABLES Final Resul t [facility] [address] [place] [address], documented in this encounter Visit Diagnoses Diagnosis Hyperlipidemia, unspecified Sepsis, unspecified organism (CMS/HCC V24, CMS/HCC V28) Heart failure, unspecified (CMS/HCC V24, CMS/HCC V28) Heart failure, unspecified documented in this encounter Care Teams Linux Unix Administrator Relationship Specialty Start Date End Date Damien Kay MD [address] [place] [address] [address] [place], [phone] PCP - General Family Medicine 07/05/24 documented as of this encounter
--- OUTSIDE RECORDS SUMMARY | 2024-08-31 15:17 | XMS_ITS | Encounter Summary ---
Author Organization [facility] Address [address] [place] [phone] Care Team Providers Care Broker Associate Name Role Phone Damien Kay MD Primary Care Provider Encounter Details Date Type Department Care Team (Late st Contact Info) Description 05/04/2024 Lab Requisition [facility] - Main Lab [address] [place] [address] Damien Kay MD 38 [facility] [address] [place], [address] Pneumonia, unspecified organism; Unspecified atrial fibrillation (CMS/HCC V24, CMS/HCC V28); Unspecified dementia, unspecified severity, without behavioral disturbance, psychotic disturbance, mood disturbance, and anxiety (CMS/HCC V24, CMS/HCC V28); Type 2 diabetes mellitus without complications (CMS/HCC V24, CMS/HCC V28); Heart failure, unspecified (CMS/HCC V24, CMS/HCC V28); Sepsis, unspecified organism (CMS/HCC V24, CMS/HCC V28) Social History Tobacco [...] failure, unspecified (CMS/HCC) Sepsis, unspecified organism (CMS/HCC) documented in this encounter Results * (ABNORMAL) Basic metabolic panel (05/04/2024 7:19 AM EST) Sodium 139 133 - 145 mmol/L LAB CHEMISTRY METHOD 05/04/2024 11:33 AM [facility] Potassium 4.2 3.5 - 5.5 mmol/L LAB CHEMISTRY METHOD 05/04/2024 11:33 AM [facility] Chloride 103 96 - 110 mmol/L LAB CHEMISTRY METHOD 05/04/2024 11:33 AM [facility] CO2 27 21 - 32 mmol/L LAB CHEMISTRY METHOD 05/04/2024 11:33 AM [facility] Anion Gap 9 3 - 11 LAB CHEMISTRY METHOD 05/04/2024 11:33 AM [facility] Glucose 101(H) 70 - 100 mg/dL LAB CHEMISTRY METHOD 05/04/2024 11:33 AM [facility] BUN 24 5 - 25 mg/dL LAB CHEMISTRY METHOD 05/04/2024 11:33 AM [facility] Creatinine 1.39(H) 0.50 - 1.10 mg/dL LAB CHEMISTRY METHOD 05/04/2024 11:33 AM [facility] eGFR 40(L) >=60 mL/min/1. 73m2 LAB CHEMISTRY METHOD 05/04/2024 11:33 AM [facility] Comment:Calculation based on the??Chronic Kidney Disease Epidemiology Collaboration (CKD-EPI) equation refit??without adjustment for race. BUN/Creatinine Ratio 17.3 LAB CHEMISTRY METHOD 05/04/2024 11:33 AM EST [facility] Calcium 9.3 8.5 - 10.5 mg/dL LAB CHEMISTRY METHOD 05/04/2024 11:33 AM EST [facility] Blood Venous blood specimen / Unknown Venipuncture / Unknown 05/04/2024 7:19 AM EST 05/04/2024 9:56 AM EST us Damien Kay MD LAB BLOOD ORDERABLES Final Resul t [facility] [address] [place] [address], [place] [phone] * (ABNORMAL) Complete blood count (05/04/2024 7:19 AM EST) WBC 9.5 4.8 - 10.8 K/mcL LAB HEMETOLOGY METHOD 05/04/2024 10:45 AM [facility] RBC 3.80 3.80 - 4.80 M/mcL LAB HEMETOLOGY METHOD 05/04/2024 10:45 AM [facility] Hemoglobin 9.7(L) 11.5 - 16.0 g/dL LAB HEMETOLOGY METHOD 05/04/2024 10:45 AM [facility] Hematocrit 32.1(L) 35.0 - 47.0 % LAB HEMETOLOGY METHOD 05/04/2024 10:45 AM [facility] MCV 84.7 79.0 - 98.0 FL LAB HEMETOLOGY METHOD 05/04/2024 10:45 AM [facility] MCH 25.6(L) 27.0 - 32.0 pcg LAB HEMETOLOGY METHOD 05/04/2024 10:45 AM [facility] MCHC 30.2(L) 32.0 - 37.0 g/dL LAB HEMETOLOGY METHOD 05/04/2024 10:45 AM EST [facility] RDW 18.4(H) 11.0 - 15.0 % LAB HEMETOLOGY METHOD 05/04/2024 10:45 AM [facility] Platelets 477(H) 130 - 400 K/mcL LAB HEMETOLOGY METHOD 05/04/2024 10:45 AM EST [facility] MPV 10.5 7.0 - 11.0 FL LAB HEMETOLOGY METHOD 05/04/2024 10:45 AM EST [facility] NRBC 0.0 <1.0 % LAB HEMETOLOGY METHOD 05/04/2024 10:45 AM [facility] NRBC Absolute 0.00 <0.10 K/mcL LAB HEMETOLOGY METHOD 05/04/2024 10:45 AM [facility] Blood Venous blood specimen / Unknown Venipuncture / Unknown 05/04/2024 7:19 AM EST 05/04/2024 9:56 AM EST Damien Kay MD LAB BLOOD ORDERABLES Final Resul t [facility] [address] [place] [address], documented in this encounter Visit Diagnoses Diagnosis Pneumonia, unspecified organism Unspecified atrial fibrillation ([facility] V24, [facility] V28) Unspecified dementia, unspecified severity, without behavioral disturbance, psychotic disturbance, mood disturbance, and anxiety ([facility] V24, [facility] V28) Type 2 diabetes mellitus without complications ([facility] V24, [facility] V28) Heart failure, unspecified ([facility] V24, [facility] V28) Heart failure, unspecified Sepsis, unspecified organism ([facility] V24, [facility] V28) documented in this encounter Care Teams Broker Associate Relationship Specialty Start Date End Date Damien Kay MD [address] [place] [address] [address] [place], [phone] PCP - General Family Medicine 07/05/24 documented as of this encounter
--- OUTSIDE RECORDS SUMMARY | 2024-08-31 15:18 | XMS_ITS | Encounter Summary ---
Author Organization [facility] Address [address] [place] [phone] Care Team Providers Care Crew Director Name Role Phone Damien Kay MD Primary Care Provider [phone] Encounter Details Date Type Department Care Team (Late st Contact Info) Description 08/15/2024 Lab Requisition [facility] - Main Lab 299 [facility] [place] [address] Damien Kay MD [address] [place] [address] [address] [facility] [phone] Type 2 diabetes mellitus without complications (CMS/HCC V24, CMS/HCC V28); Unspecified atrial fibrillation (CMS/HCC V24, CMS/HCC V28); Anemia, unspecified Social History Tobacco Use Types Packs/Day [...] mellitus without complications (CMS/HCC V24, CMS/HCC V28) Unspecified atrial fibrillation (CMS/HCC V24, CMS/HCC V28) Anemia, unspecified documented in this encounter Care Teams Crew Director Relationship Specialty Start Date End Date Damien Kay MD [address] [place] [address] [address] [place], [phone] PCP - General Family Medicine 07/05/24 documented as of this encounter
--- OUTSIDE RECORDS SUMMARY | 2024-08-31 15:18 | XMS_ITS | Encounter Summary ---
Author Organization [facility] Address [address] [place] [phone] Care Team Providers Care Stock Clipper Name Role Phone Damien Kay MD Primary Care Provider [phone] Encounter Details Date Type Department Care Team (Late st Contact Info) Description 05/10/2024 Lab Requisition [facility] - Main Lab 299 [facility] [place] [address] Damien Kay MD 38 [facility] [address] [place], [address] Unspecified atrial fibrillation (CMS/HCC V24, CMS/HCC [...] mmol/L LAB CHEMISTRY METHOD 05/12/2024 11:29 AM [facility] Potassium 3.5 3.5 - 5.5 mmol/L LAB CHEMISTRY METHOD 05/12/2024 11:29 AM [facility] Chloride 101 96 - 110 mmol/L LAB CHEMISTRY METHOD 05/12/2024 11:29 AM [facility] CO2 27 21 - 32 mmol/L LAB CHEMISTRY METHOD 05/12/2024 11:29 AM [facility] Anion Gap 9 3 - 11 LAB CHEMISTRY METHOD 05/12/2024 11:29 AM [facility] Glucose 103(H) 70 - 100 mg/dL LAB CHEMISTRY METHOD 05/12/2024 11:29 AM [facility] BUN 37(H) 5 - 25 mg/dL LAB CHEMISTRY METHOD 05/12/2024 11:29 AM [facility] Creatinine 1.70(H) 0.50 - 1.10 mg/dL LAB CHEMISTRY METHOD 05/12/2024 11:29 AM [facility] eGFR 32(L) >=60 mL/min/1. 73m2 LAB CHEMISTRY METHOD 05/12/2024 11:29 AM [facility] Comment:Calculation based on the??Chronic Kidney Disease Epidemiology Collaboration (CKD-EPI) equation refit??without adjustment for race. BUN/Creatinine Ratio 21.8 LAB CHEMISTRY METHOD 05/12/2024 11:29 AM [facility] Calcium 9.0 8.5 - 10.5 mg/dL LAB CHEMISTRY METHOD 05/12/2024 11:29 AM [facility] Blood Venous blood specimen / Unknown Venipuncture / Unknown 05/12/2024 7:30 AM EST 05/12/2024 10:49 AM EST us Damien Kay MD LAB BLOOD ORDERABLES Final Resul t [facility] [address] [place] [address], * (ABNORMAL) Complete blood count (05/12/2024 7:30 AM EST) WBC 11.4(H) 4.8 - 10.8 K/mcL LAB HEMETOLOGY METHOD 05/12/2024 11:01 AM [facility] RBC 3.60(L) 3.80 - 4.80 M/mcL LAB HEMETOLOGY METHOD 05/12/2024 11:01 AM [facility] Hemoglobin 9.1(L) 11.5 - 16.0 g/dL LAB HEMETOLOGY METHOD 05/12/2024 11:01 AM [facility] Hematocrit 29.9(L) 35.0 - 47.0 % LAB HEMETOLOGY METHOD 05/12/2024 11:01 AM [facility] MCV 84.0 79.0 - 98.0 FL LAB HEMETOLOGY METHOD 05/12/2024 11:01 AM [facility] MCH 25.6(L) 27.0 - 32.0 pcg LAB HEMETOLOGY METHOD 05/12/2024 11:01 AM [facility] MCHC 30.4(L) 32.0 - 37.0 g/dL LAB HEMETOLOGY METHOD 05/12/2024 11:01 AM [facility] RDW 18.9(H) 11.0 - 15.0 % LAB HEMETOLOGY METHOD 05/12/2024 11:01 AM [facility] Platelets 690(H) 130 - 400 K/mcL LAB HEMETOLOGY METHOD 05/12/2024 11:01 AM [facility] MPV 10.2 7.0 - 11.0 FL LAB HEMETOLOGY METHOD 05/12/2024 11:01 AM EST [facility] NRBC 0.0 <1.0 % LAB HEMETOLOGY METHOD 05/12/2024 11:01 AM EST [facility] NRBC Absolute 0.00 <0.10 K/mcL LAB HEMETOLOGY METHOD 05/12/2024 11:01 AM EST [facility] Blood Venous blood specimen / Unknown Venipuncture / Unknown 05/12/2024 7:30 AM EST 05/12/2024 10:49 AM EST Damien Kay MD LAB BLOOD ORDERABLES Final Resul t [facility] [address] [place] [address], documented in this encounter Visit Diagnoses Diagnosis Unspecified atrial fibrillation (CMS/HCC V24, CMS/HCC V28) Type 2 diabetes mellitus without complications (CMS/HCC V24, CMS/HCC V28) Heart failure, unspecified (CMS/HCC V24, CMS/HCC V28) Heart failure, unspecified documented in this encounter Care Teams Stock Clipper Relationship Specialty Start Date End Date Damien Kay MD [address] [place] [address] [address] [place], [phone] PCP - General Family Medicine 07/05/24 documented as of this encounter
--- OUTSIDE RECORDS SUMMARY | 2024-08-31 15:18 | XMS_ITS | Encounter Summary ---
Author Organization [facility] Address [address] [place] [phone] Care Team Providers Care Manager Forms Name Role Phone Damien Kay MD Primary Care Provider [phone] Encounter Details Date Type Department Care Team (Late st Contact Info) Description 04/22/2024 Lab Requisition [facility] - Main Lab 299 [facility] [place] [address] Damien Kay MD 38 [facility] [address] [place], [phone] Unspecified atrial fibrillation (CMS/HCC V24, CMS/HCC V28); Sepsis, unspecified organism (CMS/HCC V24, CMS/HCC V28); Heart failure, unspecified (CMS/HCC V24, CMS/HCC V28); Type 2 diabetes [...] mmol/L LAB CHEMISTRY METHOD 04/22/2024 12:10 PM [facility] Potassium 6.7(HH) 3.5 - 5.5 mmol/L LAB CHEMISTRY METHOD 04/22/2024 12:10 PM [facility] Chloride 102 96 - 110 mmol/L LAB CHEMISTRY METHOD 04/22/2024 12:10 PM [facility] CO2 23 21 - 32 mmol/L LAB CHEMISTRY METHOD 04/22/2024 12:10 PM [facility] Anion Gap 10 3 - 11 LAB CHEMISTRY METHOD 04/22/2024 12:10 PM [facility] Glucose 174(H) 70 - 100 mg/dL LAB CHEMISTRY METHOD 04/22/2024 12:10 PM [facility] BUN 37(H) 5 - 25 mg/dL LAB CHEMISTRY METHOD 04/22/2024 12:10 PM [facility] Creatinine 1.99(H) 0.50 - 1.10 mg/dL LAB CHEMISTRY METHOD 04/22/2024 12:10 PM [facility] eGFR 26(L) >=60 mL/min/1. 73m2 LAB CHEMISTRY METHOD 04/22/2024 12:10 PM [facility] Comment:Calculation based on the??Chronic Kidney Disease Epidemiology Collaboration (CKD-EPI) equation refit??without adjustment for race. BUN/Creatinine Ratio 18.6 LAB CHEMISTRY METHOD 04/22/2024 12:10 PM [facility] Calcium 10.8(H) 8.5 - 10.5 mg/dL LAB CHEMISTRY METHOD 04/22/2024 12:10 PM [facility] AST (SGOT) 29 10 - 42 unit/L LAB CHEMISTRY METHOD 04/22/2024 12:10 PM [facility] ALT (SGPT) 23 10 - 60 unit/L LAB CHEMISTRY METHOD 04/22/2024 12:10 PM [facility] Alkaline Phosphatase 75 42 - 121 unit/L LAB CHEMISTRY METHOD 04/22/2024 12:10 PM [facility] Total Protein 7.2 6.0 - 8.0 g/dL LAB CHEMISTRY METHOD 04/22/2024 12:10 PM [facility] Albumin 3.3 3.2 - 5.0 g/dL LAB CHEMISTRY METHOD 04/22/2024 12:10 PM [facility] Total Bilirubin 0.3 0.0 - 1.4 mg/dL LAB CHEMISTRY METHOD 04/22/2024 12:10 PM [facility] Blood Venous blood specimen / Unknown Venipuncture / Unknown 04/22/2024 8:06 AM EST 04/22/2024 10:44 AM EST us Damien Kay MD LAB BLOOD ORDERABLES Final Resul t [facility] [address] [place] [address], * (ABNORMAL) Complete blood count (04/22/2024 8:06 AM EST) WBC 18.6(H) 4.8 - 10.8 K/mcL LAB HEMETOLOGY METHOD 04/22/2024 11:34 AM EST [facility] RBC 4.30 3.80 - 4.80 M/mcL LAB HEMETOLOGY METHOD 04/22/2024 11:34 AM [facility] Hemoglobin 11.0(L) 11.5 - 16.0 g/dL LAB HEMETOLOGY METHOD 04/22/2024 11:34 AM EST [facility] Hematocrit 37.3 35.0 - 47.0 % LAB HEMETOLOGY METHOD 04/22/2024 11:34 AM [facility] MCV 87.4 79.0 - 98.0 FL LAB HEMETOLOGY METHOD 04/22/2024 11:34 AM [facility] MCH 25.8(L) 27.0 - 32.0 pcg LAB HEMETOLOGY METHOD 04/22/2024 11:34 AM [facility] MCHC 29.5(L) 32.0 - 37.0 g/dL LAB HEMETOLOGY METHOD 04/22/2024 11:34 AM [facility] RDW 18.0(H) 11.0 - 15.0 % LAB HEMETOLOGY METHOD 04/22/2024 11:34 AM [facility] Platelets 600(H) 130 - 400 K/mcL LAB HEMETOLOGY METHOD 04/22/2024 11:34 AM [facility] MPV 11.7(H) 7.0 - 11.0 FL LAB HEMETOLOGY METHOD 04/22/2024 11:34 AM [facility] NRBC 0.0 <1.0 % LAB HEMETOLOGY METHOD 04/22/2024 11:34 AM [facility] NRBC Absolute 0.00 <0.10 K/mcL LAB HEMETOLOGY METHOD 04/22/2024 11:34 AM [facility] Blood Venous blood specimen / Unknown Venipuncture / Unknown 04/22/2024 8:06 AM EST 04/22/2024 10:44 AM EST us Damien Kay MD LAB BLOOD ORDERABLES Final Resul t [facility] [address] [place] [address], documented in this encounter Visit Diagnoses Diagnosis Unspecified atrial fibrillation (CMS/HCC V24, [facility] V28) Sepsis, unspecified organism ([facility] V24, [facility] V28) Heart failure, unspecified ([facility] V24, [facility] V28) Heart failure, unspecified Type 2 diabetes mellitus without complications ([facility] V24, [facility] V28) documented in this encounter Care Teams Manager Forms Relationship Specialty Start Date End Date Damien Kay MD [address] [place] [address], [phone] PCP - General Family Medicine 07/05/24 documented as of this encounter
--- OUTSIDE RECORDS SUMMARY | 2024-08-31 15:18 | XMS_ITS | Data Portability ---
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 Name Role Phone KEKE BISHOP - 3RD [...] Address Organization Details Recorded Time Vascular dementia [id number] Active 2019 VIELKA JIMÉNEZ [address], [address], [place], [address], [facility] 0 11:42:15 Diabetes mellitus 16901220 Active 2019 VIELKA JIMÉNEZ [address], [address], [place], [address], [facility] 0 11:42:37 Atrial fibrillatio n 81486910 Active 2019 VIELKA JIMÉNEZ [address], [address], [place], [address], [facility] 0 11:43:55 Recurrent falls 372896398 Active 2019 VIELKA JIMÉNEZ [address], [address], [place], [address], [facility] 0 11:44:10 Diastolic heart failure 866044630 Active 2019 VIELKA JIMÉNEZ [address], [address], [place], [address], [facility] 0 11:44:39 Hyperlipide keven 30811294 Active 2019 NIVIA JIMÉNEZP [address], [address], [place], [address], [place] [facility] 0 11:45:05 Essential hypertensio n 56495696 Active 2019 NIVIA JIMÉNEZP [address], [place], [address], [place] [facility] 0 11:45:23 History of cerebrovasc ular accident 813952802 Active 2019 NIVIA JIMÉNEZP [address], [place], [address], [facility] 0 12:00:03 Insomnia 026065443 Active 2019 VIELKA JIMÉNEZ [address], [address], [place], [address], [place] [facility] 0 12:06:58 Anxiety 94928442 Active 2019 VIELKA JIMÉNEZ [address], [address], [place], [address], [facility] 0 12:07:06 Chronic back pain 227553974 Active 2019 NIVIA JIMÉNEZP [address], [address], [place], [address], [place] [facility] 0 12:18:41 Retention of urine 832057376 Active 2019 NIVIA JIMÉNEZP [address], [address], [place], [address], [facility] 0 12:48:03 Hyperaldost eronism 29682773 Active 2019 NIVIA JIMÉNEZP [address], [address], [place], [address], [place] [facility] 0 13:01:27 Acute depression 577335986 Active 2019 ALFREDO WATERSJEAN PAULNIVIA IBRAHIMP [address], [address], [place], [address], [facility] 0 08:47:18 Vitamin D deficiency 57510632 Active 2020 ALFREDO VLADISLAVNIVIAP [address], [address], [place], [address], [facility] 1 17:14:42 Gastroesoph ageal reflux disease without esophagitis 172202947 Active 2020 ALFREDO WATERSMARIJA [employer]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 [address], [address], [place], [address], [facility] 1 17:18:13 Hypokalemia 69807853 Active 2021 Pam Ruiz MD [address], [address], [place], [address], [facility] 2 16:55:42 Vertigo 016168120 Active 2021 ALFREDO WATERSMARIJANIVIAP [address], [address], [place], [address], [facility] 2 12:48:50 Anemia 728271122 Active 2022 ANDREA ENGEL NP [address], [address], [place], [address], [facility] 3 11:25:41 Mixed anxiety and depressive disorder 922266652 Active 2023 ANDREA ENGEL NP [address], [address], [place], [address], [facility] 4 10:11:52 Acute nontraumati c kidney injury 8761529844807 03 Active 2023 Loni Love NP [address], [address], [place], [address], [facility] 4 13:00:33 Chronic kidney disease 586132333 Active 2023 Loni Love NP [address], [place], [address], [facility] 4 13:00:40 Problem Notes None recorded. Medical Equipment None Reported. Allergies Allergen ID Allergen Name Allergen Category Reaction Reaction Severity Criticality Documentation Date Start Date Code Code System Note Provider Name and Address Organization Details Recorded Time 57625 aspirin medicatio n Not available Not available Not available 08/05/2019 1191 RxNorm GI upset Not Available Not Available Not Available 80592 purified protein derivativ e of tuberculi n [...] Details Last Updated DateTime 5 165.1 cm 55875.6 9 g 70 /min 18 /min 97.9 [degF] 96 % 96 % 124 mm[Hg] 63 mm[Hg] Loni Love NP [address] [facility] [address], [place], [address], [facility] 5 11:37:31 Date Recorded Body height Body mass index (BMI) Body weight Heart rate Respiratory rate Body temperature Oxygen saturation Oxygen saturation in Arterial blood by Pulse oximetry Systolic blood pressure Diastolic blood pressure Provider Name and Address Organization Details Last Updated DateTime 5 165.1 cm 16.1 kg/m2 58125.4 6 g 68 /min 18 /min 97.5 [degF] 97 % 97 % 136 mm[Hg] 68 mm[Hg] Loni Love NP [address] [facility] [facility] [facility] [address], [place], [address], [facility] 5 10:16:46 Date Recorded Body height Body mass index (BMI) Body weight Heart rate Respiratory rate Body temperature Oxygen saturation Oxygen saturation in Arterial blood by Pulse oximetry Systolic blood pressure Diastolic blood pressure Provider Name and Address Organization Details Last Updated DateTime 5 165.1 cm 16.3 kg/m2 50620.0 5 g 65 /min 18 /min 97.6 [degF] 97 % 97 % 124 mm[Hg] 64 mm[Hg] Loni Love NP [address] [facility] [facility], [address], [place], [address], [facility] 5 12:59:19 Date Recorded Body height Body mass index (BMI) Body weight Heart rate Respiratory rate Body temperature Oxygen saturation Oxygen saturation in Arterial blood by Pulse oximetry Systolic blood pressure Diastolic blood pressure Provider Name and Address Organization Details Last Updated DateTime 5 165.1 cm 16.3 kg/m2 74255.0 5 g 67 /min 18 /min 97.6 [degF] 96 % 96 % 128 mm[Hg] 66 mm[Hg] Loni Love NP [address] [facility] [facility], [address], [place], [address], [facility] 5 12:02:19 Social History Question Answer Notes LastModified by Organizat ion Details LastModified Time Tobacco Smoking Status Former Smoker smoked 1 ppd Pam Ruiz MD [address], [address], [place], [address], [facility] 10/03/2021 16:20:40 Do You Have An Advance Directive? Yes Full Code-use Dialysis, Nutrition And Hydration Short Term - Appears To Have Been Completed Prior To Assignment Of Guardian. [email or web address] Information not available 07/14/2022 What Is Your Level Of Alcohol Consumption? None [id number] Information not available 03/13/2020 How Much Tobacco Do You Chew? None [id number] Information not available 03/13/2020 What Is Your Code Status? Full Code Information not available 10/03/2021 Do You Or Have You Ever Used E-cigarettes Or Vape? Never Used Electronic Cigarettes [id number] Information not available 03/13/2020 Where Do You Live? Other LTC At [facility] Information not available 10/03/2021 Legal Guardian? Yes Decree Uploaded In PCC; Does Not Authorize Revocation Of HCP. Information not available 10/03/2021 Do You Have A Medical Power Of Mold Runner? Yes There Is A HCP Uploaded In [facility] But It Is Labeled As Invalid; There Is A HCP Invocation Uploaded In [facility] [email or web address] Information not available 07/14/2022 What Was The Date Of Your Most Recent Tobacco Screening? 09/24/2023 [email or web address] Information not available 09/24/2023 Do You Have An Out Of Hospital DNR? No Information not available 10/03/2021 What Is Your Relationship Status? Information not available 10/03/2021 Do You Or Have You Ever Used Smokeless Tobacco? Never Used Smokeless Tobacco [id number] Information not available 03/13/2020 How Much Tobacco Do You Smoke? No Information not available 10/03/2021 Do You Use Any Illicit Or Recreational Drugs? No Information not available 10/03/2021 Has Tobacco Cessation Counseling Been Provided? No N/A Information not available 07/14/2022 How Many Years Have You Smoked Tobacco? 20 [id number] Information not available 03/13/2020 Do You Or [...] quadrivalent, PF 1 completed Conchita Roy null, [facility] 04/23/2021 11:48:58 Influenza, split virus, quadrivalent, preservative 2 completed Mally Rivera [facility], [facility] 03/12/2022 13:21:44 COVID-19, mRNA, LNP-S, bivalent, PF, 30 mcg/0.3 mL dose 2 completed GERDA LACEY PA-C [address] [facility], [address], [place], [address], [facility] 05/22/2022 10:21:46 pneumococcal polysaccharide PPV23 2 completed GERDA LACEY PA-C [address], [address], [place], [address], [facility] 07/14/2022 16:07:16 COVID-19, mRNA, LNP-S, bivalent, PF, 30 mcg/0.3 mL dose 3 completed Yola Alejandro null, [facility] 07/06/2023 11:54:06 Influenza, split virus, quadrivalent, preservative 0 completed Conchita Roy null, [facility] 02/29/2020 10:48:11 COVID-19, mRNA, LNP-S, PF, 30 mcg/0.3 mL dose 1 completed VIELKA JIMÉNEZ [address] [place] [address], [address], [place], [address], [facility] 07/17/2020 18:20:26 COVID-19, mRNA, LNP-S, PF, 30 mcg/0.3 mL dose 1 completed VIELKA JIMÉNEZ [address] [place] [address], [address], [place], [address], [facility] 07/17/2020 18:20:39 Pneumococcal conjugate PCV 13 6 completed VIELKA JIMÉNEZ [address] [place] [address], [address], [place], [address], [facility] 08/21/2020 18:18:49 pneumococcal polysaccharide PPV23 1 completed VIELKA JIMÉNEZ [address] [place] [address], [address], [place], [address], [facility] 08/21/2020 18:19:12 tetanus toxoid, unspecified formulation 6 completed VIELKA JIMÉNEZ [address] [place] [address], [address], [place], [address], [facility] 08/21/2020 18:19:31 Past Encounters Encounter ID Performer Location Encounter Start Date Encounter Closed Date Diagnosis/Indication Diagnosis SNOMED-CT Code Diagnosis ICD10 Code Diagnosis Note [id number] VIELKA JIMÉNEZ [address] [address] 08/05/2019 11:38:01 08/16/2019 09:21:13 Recurrent falls 998063682 R29.6 PT/OT eval and treat monitor for safety Diabetes mellitus 280844 09 E11.9 lantus 10 units q am SSI neurontin 100 mg q hs discussed risk vs benefit of neurontin with pt monitor A1c monitor for s/s of hypo/hyper glycemia Acute urin heriberto tract infection 576410173 N30.00 completed rocephin in the hospital monitor for resolution Atrial fibrillation 4943 6004 I48.19 eliquis 5 mg bid metoprolol tartrate 75 mg bid monitor Diastolic heart failure 310252779 I50.32 spironolac tone 25 mg qd potasium chloride 10 meq qd monitor weigh and fluid balance Essential hypertension 47968053 I10 spironolac tone 25 mg qd potasium chloride 10 meq qd norvasc 5 mg qd metoprolol tartrate 75 mg bid monitor b/p and labs Hyperlipidemia 00763266 E78.49 atorvastat in 80 mg qd monitor labs Vascular dementia 524747 004 F01.50 expect decline supportive care monitor for safety psych eval and treat prn History of cerebrovascular accident 895449594 Z86.73 left hemiparesi s and hemiplegia monitor for safety Insomnia 026019541 G47.0 9 melatonin 5 mg q hs monitor sleep Anxiety 25183074 F41.1 clonazepam 1 mg bid prn discussed risk vs benefit of clonazepam with pt monitor anxiety Chronic back pain 930219 002 G89.29 neurontin 100 mg q hs monitor pain Retention of urine 81327 4002 R33.8 detrol LA 4 mg qd hester in place trial removal and monitor may need urology follow up Hyperaldosteronism 33059 004 E26.09 question of this labs pending at labs monitor spironolac tone 25 mg qd monitor [id number] VIELKA JIM[facility]NEZ [facility] [address] [place] [address] 08/10/2019 11:22:23 08/16/2019 09:52:58 Recurrent falls 046338317 R29.6 PT/OT currently korey lift fearful of falling monitor for safety Fungal inf ection by site 302531912 B37.2 groin and buttocks house antifungal cream rash much improved from last site of it monitor for improvemen t Anxiety 49085516 F41.1 clonazepam 1 mg bid prn anxious about falling monitor anxiety [id number] Damien Kay MD [facility] [address] [address] 08/11/2019 13:57:31 08/16/2019 10:14:24 Acute hypernatremia 2219719 E87.0 see HPImonitor lytes and blood glucose Acute hypokalemia 538450 03 E87.6 see HPI monitor lytes and blood glucoseKcl 10 meq qd Metabolic acidosis due to diabetes mellitus 591022796 E87.2 see HPIf/u with nephrology in [facility] onlantus 10 units qdlispro SS Essential hypertension 88692585 I10 see abovespiro nolactone 25 mg qdnorvasc 5 mg qdmetoprol ol 75 mg bid Atrial fibrillation 4943 6004 I48.0 eliquis 5 mg qdmetoprol ol 75 mg qdmonitor for rate control Vascular dementia 684940 004 F01.50 baseline dementiain voke HCPmonitor for behaviorsp sych eval prn Diastolic heart failure 372417401 I50.32 now on spironolac tone 25 mg qdmonitor respirator y status and renal function History of cerebrovascular accident 611468779 Z86.73 left sided weakness at baselineli pitor 80 mg qdtherapy eval Chronic back pain 571280 002 G89.29 gabapentin 100 mg qdmonitor for sx relief Retention of urine 38524 4002 R33.8 detrol LA 4 mg qdmonitor for sx control [id number] VIELKA Foy [facility] [address] [address] 08/19/2019 15:21:02 08/30/2019 14:24:53 Acute hypernatremia 5038226 E87.0 sodium normalized on 08/04needs repeat labs Acute hypokalemia 160785 03 E87.6 needs repeat labs continue Kcl 10 meq qd Metabolic acidosis due to diabetes mellitus 738929274 E87.2 lantus 10 units qdlispro SSf/u with nephro when able Essential hypertension 97651146 I10 bp normal todayspiro nolactone 25 mg qdnorvasc 5 mg qdmetoprol ol 75 mg bidmonitor bp and labs Atrial fibrillation 4943 6004 I48.0 eliquis 5 mg qdmetoprol ol 75 mg qdmonitor for rate control, bleeding Vascular dementia 127796 004 F01.50 supportive careexpect decline psych eval prn Diastolic heart failure 499036753 I50.32 spironolac tone 25 mg qdmonitor fluid status History of cerebrovascular accident 452629500 Z86.73 left sided weakness at baselineli pitor 80 mg qhsLFTs normal on 08/04 Chronic back pain 922003 002 G89.29 gabapentin 100 mg qdmonitor for sx relief [id number] VIELKA JIMÉNEZ [facility] [address] 09/02/2019 08:12:32 09/12/2019 15:12:44 Vascular dementia 703565369 F01.50 expect decline supportive care monitor for safety HCP invoked psych eval and treat prn unable to do slums because of language and she does not understand the questions Recurrent falls 77758486 2 R29.6 PT/OT as needed currently korey lift monitor for safety Insomnia 224369725 G47.0 9 melatonin 5 mg q hs prn monitor sleep Hyperlipidemia 43075618 E78.49 atorvastat in 80 mg qd monitor labs Hyperaldosteronism 20069 004 E26.09 spironolac tone 25 mg qd monitor Essential hypertension 18386294 I10 spironolac tone 25 mg qd potasium chloride 10 meq qd norvasc 5 mg qd metoprolol tartrate 75 mg bid monitor b/p and labs Diastolic heart failure 332574814 I50.32 spironolac tone 25 mg qd potasium chloride 10 meq qd monitor weight and fluid balance Diabetes mellitus 045046 09 E11.9 lantus 10 units q am finger stick mon, wed and fri in am neurontin 100 mg q hs monitor A1c monitor for s/s of hypo/hyper glycemia Chronic back pain 170264 002 G89.29 neurontin 100 mg q hs ultram 50 mg tid prn monitor pain Atrial fibrillation 4943 6004 I48.19 eliquis 5 mg bid metoprolol tartrate 75 mg bid monitor rate and rhythm Anxiety 24773195 F41.1 clonazepam 1 mg bid prn monitor anxiety psych eval and treat prn Retention of urine 30410 4002 R33.8 detrol LA 4 mg qd urology as needed History of cerebrovascular accident 575908346 Z86.73 left hemiparesi s and hemiplegia monitor for safety [id number] Marita Herrera MD [facility] [address] [address] 10/19/2019 08:53:58 10/21/2019 16:08:00 Atrial fibrillation 17249120 I48.19 apixaban 5 mg bidmetopro lol 75 mg bid for rate controlwil l monitor Chronic back pain 082008 002 G89.29 gabapentin 100 mg at hstramadol 50 mg tid prnwill monitor Diabetes mellitus 024690 09 E11.9 Lantus 10U dailyprese ntly not on sliding scale insulinAcc uchecks have been in mid to low 100swill recheck a1c end of October Diastolic heart failure 700745397 I50.32 aldactone 25 mg dailymetop rolol 75 mg bidwill monitor Essential hypertension 58794081 I10 spironolac tone 25 mg dailymetop rolol 75 mg bidamlodip ine 5 mg dailywill monitor Vascular dementia 942328 004 F01.50 decline expectedwi ll monitor and support as needed Hyperlipidemia 09289522 E78.49 atorvastat in 80 mg dailywill monitor Mixed urin heriberto incontinence 135102977 N39.46 tolterodin e ER 4 mg dailywill monitor Anxiety disorder 5881585 06 F41.8 clonazepam 1 mg bid prnwill monitor [id number] VIELKA JIMÉNEZ [facility] [address] [address] 11/09/2019 08:54:51 11/11/2019 11:59:01 Vascular dementia 207470942 F01.50 expect decline supportive care monitor for safety HCP invoked psych eval and treat prn Recurrent falls 88646643 2 R29.6 PT/OT as needed currently korey lift monitor for safety Insomnia 464973311 G47.0 9 melatonin 5 mg q hs prn monitor sleep Hyperlipidemia 23413395 E78.49 atorvastat in 80 mg qd monitor labs Hyperaldosteronism 80542 004 E26.09 spironolac tone 25 mg qd monitor Essential hypertension 28763687 I10 spironolac tone 25 mg qd potasium chloride 10 meq qd norvasc 5 mg qd metoprolol tartrate 75 mg bid monitor b/p and labs Diastolic heart failure 322837591 I50.32 spironolac tone 25 mg qd potasium chloride 10 meq qd monitor weight and fluid balance Diabetes mellitus 432066 09 E11.9 lantus 10 units q am finger stick mon, wed and fri in am neurontin 100 mg q hs monitor A1c monitor for s/s of hypo/hyper glycemia Chronic back pain 952364 002 G89.29 neurontin 100 mg q hs ultram 50 mg tid prn monitor pain Atrial fibrillation 4943 6004 I48.19 eliquis 5 mg bid metoprolol tartrate 75 mg bid monitor rate and rhythm Anxiety 44977895 F41.1 clonazepam 1 mg bid prn monitor anxiety psych eval and treat prn Retention of urine 90049 4002 R33.8 detrol LA 4 mg qd urology as needed [id number] Marita Herrera MD [address] [address] 01/20/2020 08:45:24 01/25/2020 08:57:27 Atrial fibrillation 09678253 I48.19 apixaban 5 mg bidmetopro lol 75 mg bid for rate controlwil l monitor Anxiety 96142042 F41.1 clonazepam 1 mg bid prnwill monitor Chronic back pain 232556 002 G89.29 gabapentin 100 mg at hstramadol 25 mg tid prnwill monitor Diabetes mellitus 524095 09 E11.9 Lantus 10U dailyAccuc hecks 3 times a week. Diastolic heart failure 107350168 I50.32 aldactone 25 mg dailymetop rolol 75 mg bidwill monitor Essential hypertension 97122691 I10 spironolac tone 25 mg dailymetop rolol 75 mg bidamlodip ine 5 mg dailywill monitor Hyperlipidemia 24833555 E78.49 atorvastat in 80 mg dailywill monitor Recurrent falls 60879941 2 R29.6 will try to minimize fall risk Retention of urine 64738 4002 R39.198 tolterodin e ER 4 mg dailywill monitor Vascular dementia 665670 004 F01.50 decline expectedwi ll monitor and support as needed Gastroesop hageal reflux disease without esophagitis 713747642 K21.9 omeprazole 20 mg dailywill monitor Depressive disorder 3548 9007 F32.89 consider trial duloxetine will monitor [id number] VIELKA JIMÉNEZ [facility] [address] 02/14/2020 08:45:57 02/16/2020 13:13:03 Acute depression 875454751 F32.89 psych consultedc annot add zoloft 25 mg qd as was hcp and no secondary hcp listedshe also states she does not want anythingmo nitor mood [id number] VIELKA JIMÉNEZ [facility] [address] [address] 03/19/2020 08:17:39 03/21/2020 12:30:24 Vascular dementia 257339350 F01.50 expect decline supportive care monitor for safety HCP invoked psych eval and treat prn Hyperaldosteronism 96829 004 E26.09 spironolac tone 25 mg qd monitor Diastolic heart failure 012161658 I50.32 spironolac tone 25 mg qd potasium chloride 10 meq qd monitor weight and fluid balance Atrial fibrillation 4943 6004 I48.19 eliquis 5 mg bid metoprolol tartrate 75 mg bid monitor rate and rhythm [id number] Marita Herrera MD [facility] [address] [address] 05/17/2020 07:15:47 05/22/2020 08:44:23 Anxiety 33126972 F41.1 clonazepam 1 mg bid prnwill monitor Atrial fibrillation 4943 6004 I48.19 apixaban 5 mg bidmetopro lol 75 mg bid for rate controlwil l monitor Diabetes mellitus 293444 09 E11.9 Lantus 10U dailywill monitor Chronic back pain 760400 002 G89.29 gabapentin 100 mg at hstramadol 25 mg tid prnwill monitor Essential hypertension 23999995 I10 spironolac tone 25 mg dailymetop rolol 75 mg bidamlodip ine 5 mg dailywill monitor Diastolic heart failure 639524821 I50.32 aldactone 25 mg dailymetop rolol 75 mg bidwill monitor Hyperlipidemia 79214364 E78.49 atorvastat in 80 mg dailywill monitor Vascular dementia 685467 004 F01.50 decline expectedwi ll monitor and support as neededsee meds for mixed anxiety/de pressive disorder Retention of urine 76849 4002 R39.198 tolterodin e ER 4 mg dailywill monitor Mixed anxi ety and depressive disorder 653152214 F41.8 clonazepam 1 mg bid prn 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 946216861 E11.9 Lantus 10U daily Gastroesop hageal reflux disease without esophagitis 720997019 K21.9 omeprazole 20 mg dailywill monitor [id number] VIELKA JIMÉNEZ [facility] [address] [address] 07/06/2020 10:34:06 07/09/2020 13:46:54 Vascular dementia 768093695 F01.50 expect decline supportive care monitor for safety HCP invoked psych eval and treat prn Essential hypertension 91144267 I10 spironolac tone 25 mg qd potasium chloride 10 meq qd norvasc 5 mg qd metoprolol tartrate 75 mg bid monitor b/p and labs Diastolic heart failure 506712411 I50.32 spironolac tone 25 mg qd potasium chloride 10 meq qd monitor weight and fluid balance Diabetes mellitus 551263 09 E11.9 lantus 10 units q am finger stick mon, wed and fri in am neurontin 100 mg q hs monitor A1c monitor for s/s of hypo/hyper glycemia Insomnia 664744975 G47.0 9 Increase melatonin from 5 mg to 10 mg Q HS monitor sleep [id number] VIELKA JIMÉNEZ [facility] [address] [address] 08/14/2020 11:23:58 08/16/2020 15:45:30 Vascular dementia 862203676 F01.50 expect decline supportive care monitor for safety guardian in place psych eval and treat prn History of cerebrovascular accident 906404990 Z86.73 left hemiparesi s and hemiplegia monitor for safety Essential hypertension 40006388 I10 spironolac tone 25 mg qd potasium chloride 10 meq qd norvasc 5 mg qd metoprolol tartrate 75 mg bid monitor b/p and labs Diastolic heart failure 954420117 I50.32 spironolac tone 25 mg qd potasium chloride 10 meq qd monitor weight and fluid balance Diabetes mellitus 465863 09 E11.9 lantus 10 units qd finger stick mon, wed and fri in am monitor A1c monitor for s/s of hypo/hyper glycemia Chronic back pain 748685 002 G89.29 neurontin 100 mg q hs ultram 25 mg tid prn monitor pain Atrial fibrillation 4943 6004 I48.19 eliquis 5 mg bid metoprolol tartrate 75 mg bid monitor rate and rhythm Anxiety 22346897 F41.1 clonazepam 1 mg bid prn monitor anxiety psych eval and treat prn Acute depression 2322549 08 F32.89 monitor mood psych eval and treat prn Hyperaldosteronism 16178 004 E26.09 spironolac tone 25 mg qd monitor Hyperlipidemia 15667036 E78.49 atorvastat in 80 mg qd monitor labs Insomnia 987883889 G47.0 9 melatonin 10 mg q hs monitor sleep Recurrent falls 42023498 2 R29.6 PT/OT as needed korey lift monitor for safety Retention of urine 74190 4002 R33.8 detrol LA 4 mg qd urology as needed Vitamin D deficiency 347 20873 E56.8 vitamin D3 1000 units qd monitor levels Gastroesop hageal reflux disease without esophagitis 068161642 K21.9 omeprazole 20 mg qd monitor for symptoms [id number] VIELKA JIMÉNEZ [address] [address] 08/21/2020 11:52:09 08/23/2020 15:40:38 Hyperlipidemia 84899596 E78.49 atorvastat in 80 mg qd monitor labs Diabetes mellitus 760362 09 E11.9 consistent carb diet lantus 10 units qd finger stick mon, wed and fri in am monitor A1c monitor for s/s of hypo/hyper glycemia [id number] Marita Herrera MD [address] [address] 08/22/2020 08:36:29 08/24/2020 10:53:20 Atrial fibrillation 81798880 I48.19 apixaban 5 mg bidmetopro lol 75 mg bid for rate controlwil l monitor Chronic back pain 919369 002 G89.29 gabapentin 100 mg at hstramadol 25 mg tid prnwill monitor Diabetes mellitus 821526 09 E11.9 Lantus 10U dailywill monitor Diastolic heart failure 987535858 I50.32 aldactone 25 mg dailymetop rolol 75 mg bidwill monitor Essential hypertension 77341622 I10 spironolac tone 25 mg dailymetop rolol 75 mg bidamlodip ine 5 mg dailywill monitor Gastroesop hageal reflux disease without esophagitis 201916746 K21.9 omeprazole 20 mg dailywill monitor Hyperlipidemia 38926652 E78.49 atorvastat in 80 mg dailywill monitor Recurrent falls 03925632 2 R29.6 will continue to try to minimize fall risk Retention of urine 44054 4002 R39.198 tolterodin e ER 4 mg dailywill monitor Vascular dementia 872911 004 F01.50 decline expectedwi ll monitor and support as neededsee meds for mixed anxiety/de pressive disorder Vitamin D deficiency 347 56008 E55.9 Mixed anxi ety and depressive disorder 784052650 F41.8 clonazepam 1 mg bid prn gabapentin 100 mg at hs will monitor [id number] VIELKA JIMÉNEZ [facility] [address] [address] 10/12/2020 09:11:10 10/18/2020 16:27:34 Vascular dementia 900935043 F01.50 expect decline supportive care monitor for safety guardian in place psych eval and treat prn Essential hypertension 59058355 I10 spironolac tone 25 mg qd potasium chloride 10 meq qd norvasc 5 mg qd metoprolol tartrate 75 mg bid monitor b/p and labs Diastolic heart failure 495573588 I50.32 spironolac tone 25 mg qd potasium chloride 10 meq qd monitor weight and fluid balance Atrial fibrillation 4943 6004 I48.19 eliquis 5 mg bid metoprolol tartrate 75 mg bid monitor rate and rhythm [id number] Marita Herrera MD [facility] [address] [address] 12/07/2020 06:49:23 12/09/2020 20:57:22 Atrial fibrillation 85290670 I48.19 apixaban 5 mg bidmetopro lol 75 mg bid for rate controlwil l monitor Chronic back pain 683078 002 G89.29 gabapentin 100 mg at hstramadol 25 mg tid prnwill monitor Diabetes mellitus 901715 09 E11.9 Lantus 10U dailywill monitor Diastolic heart failure 268268710 I50.32 aldactone 25 mg dailymetop rolol 75 mg bidwill monitor Essential hypertension 54601417 I10 spironolac tone 25 mg dailymetop rolol 75 mg bidamlodip ine 5 mg dailywill monitor Gastroesop hageal reflux disease without esophagitis 705938055 K21.9 omeprazole 20 mg dailywill monitor Hyperlipidemia 85348526 E78.49 atorvastat in 80 mg dailywill monitor Recurrent falls 23750534 2 R29.6 will continue to try to minimize fall risk Retention of urine 45451 4002 R39.198 tolterodin e ER 4 mg dailywill monitor Vascular dementia 919691 004 F01.50 decline expectedwi ll monitor and support as neededsee meds for mixed anxiety/de pressive disorder History of cerebrovascular accident 340536362 Z86.73 atorvastat in 80 mg dailyapixa ban 5 mg bidwill monitor Mixed anxi ety and depressive disorder 145450226 F41.8 clonazepam 1 mg bid prn gabapentin 100 mg at hssertrali ne 25 mg dailywill monitor [id number] ANDREA ENGEL NP [facility] [address] 01/24/2021 11:35:47 01/28/2021 14:43:59 Diabetes mellitus 41148637 E11.9 Increase in A1C 7.2 -> 9.4%BID BS not bad - mostly 100s, occ. 200s.Britney nue lantus 10 daily - no change in dose at this time as BS acceptable .Continue to monitor BS, labs, s/s hyper/hypo glycemiaCo nsider dose increase if BS readings increase [id number] BRADLEY BRENNAN NP [facility] [address] [address] 02/01/2021 13:21:30 02/04/2021 15:22:35 Atrial fibrillation 90696517 I48.19 eliquis 5 mg bidmonitor heart rate Anxiety 95706925 F41.1 zoloft 25 mg dailypsych prn Acute depression 4901558 08 F32.89 zoloft 25 mg dailypsych prn Chronic back pain 397777 002 G89.29 gabapentin 100 mg at hstramadol 25 mg tid prnwill monitor Diabetes mellitus 003335 09 E11.9 glargine 10 units dailymonit or glucose Diastolic heart failure 859590740 I50.32 kcl 10 meq daily Essential hypertension 22976108 I10 amlodipine 5 mg dailymonit or bp Gastroesop hageal reflux disease without esophagitis 845189454 K21.9 omeprazole 20 mg daily History of cerebrovascular accident 786665075 Z86.73 atorvastat in 80 mg dailyeliqu is 5 mg bid Hyperaldosteronism 36462 004 E26.09 aldactone 25 mg daily Hyperlipidemia 03626804 E78.49 atorvastat in 80 mg daily Insomnia 738327718 G47.0 9 melatonin 10 mg hsgabapent in 100 mg hs Recurrent falls 82744893 2 R29.6 PT OT eval and treat prnfall precaution sfrequent safety checks Retention of urine 91672 4002 R39.198 detrol 4 mg daily Vascular dementia 310862 004 F01.50 decline expectedmo nitor and support as needed Vitamin D deficiency 347 12884 E55.9 D3 1000 daily [id number] Mraita Herrera MD [address] [address] 03/27/2021 08:35:02 03/29/2021 10:13:59 Mixed anxiety and depressive disorder 461883569 F41.8 clonazepam 1 mg bid prn gabapentin 100 mg at hssertrali ne 25 mg dailywill monitor Diastolic heart failure 427739660 I50.32 aldactone 25 mg dailymetop rolol 75 mg bidwill monitor Essential hypertension 65786797 I10 spironolac tone 25 mg dailymetop rolol 75 mg bidamlodip ine 5 mg dailywill monitor Gastroesop hageal reflux disease without esophagitis 623192312 K21.9 omeprazole 20 mg dailywill monitor History of cerebrovascular accident 183168587 Z86.73 atorvastat in 80 mg dailyapixa ban 5 mg bidwill monitor Diabetes mellitus 311780 09 E11.9 Lantus 10U dailywill monitor Chronic back pain 643323 002 G89.29 gabapentin 100 mg at hstramadol 25 mg tid prnwill monitor Atrial fibrillation 4943 6004 I48.19 apixaban 5 mg bidmetopro lol 75 mg bid for rate controlwil l monitor Mixed urin heriberto incontinence 901080873 N39.46 tolterodin e ER 4 mg dailywill monitor [id number] ANDREA ENGEL NP [facility] [address] [address] 05/23/2021 14:48:56 05/27/2021 14:45:29 Mixed anxiety and depressive disorder 861875692 F41.8 clonazepam 1 mg bid prn gabapentin 100 mg at hssertrali ne 25 mg dailywill monitorpsy ch eval prn Diastolic heart failure 006952541 I50.32 continue:a ldactone 25 mg dailymetop rolol 75 mg bidwill monitor VS, CP status for change/dec ompensatio nCheck CBC, CMP thursday x1 Essential hypertension 36405120 I10 spironolac tone 25 mg dailymetop rolol 75 mg bidamlodip ine 5 mg dailywill monitor VS and adjust meds prnCheck CBC, CMP x 1 Gastroesop hageal reflux disease without esophagitis 221854244 K21.9 omeprazole 20 mg dailywill monitor s/s GI sx. History of cerebrovascular accident 240281334 Z86.73 atorvastat in 80 mg dailyapixa ban 5 mg bidwill monitorCMP x 1 thursday Diabetes mellitus 713822 09 E11.9 Lantus 10U dailyLast A1C 9.4, but bid BS checked and were not grossly elevated at the time.Will repeat A1C thursdayCBC, CMP as well. Chronic back pain 983117 002 G89.29 gabapentin 100 mg at hstramadol 25 mg tid prnwill monitor Atrial fibrillation 4943 6004 I48.19 apixaban 5 mg bidmetopro lol 75 mg bid for rate controlwil l monitor CP status. Mixed urin heriberto incontinence 164024541 N39.46 tolterodin e ER 4 mg dailywill monitor [id number] Damien Kay MD [facility] [place] [address] 07/16/2021 12:36:01 07/19/2021 14:59:22 Atrial fibrillation 31919503 I48.19 eliquis 5 mg qdmetoprol ol 75 mg qdmonitor for rate control Essential hypertension 04122838 I10 norvasc 5 mg qdmetoprol ol 75 mg bidaldacto ne 25 mg qdmonitor bp and need to titrate Gastroesop hageal reflux disease without esophagitis 190065559 K21.9 omeprazole 20 mg qdmonitor for effect Insomnia 364602041 G47.0 9 melatonin 10 mg qhsmonitor for effect and need to titrate Vascular dementia 650172 004 F01.50 baseline dementiamo nitor for behaviorsp sych eval prncontinu e supportive care [id number] ANDREA ENGEL NP [facility] [address] [address] 08/15/2021 10:17:54 08/20/2021 08:46:09 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 [id number] VIELKA JIMÉNEZ [facility] [address] [address] 08/16/2021 09:02:41 08/20/2021 08:58:41 Vascular dementia 746769239 F01.50 expect decline supportive care monitor for safety guardian in place psych eval and treat prn History of cerebrovascular accident 006230411 Z86.73 left hemiparesi s and hemiplegia monitor for safety Essential hypertension 08081002 I10 spironolac tone 25 mg qd potasium chloride 10 meq qd norvasc 5 mg qd metoprolol tartrate 75 mg bid monitor b/p and labs Diastolic heart failure 908090987 I50.32 spironolac tone 25 mg qd potasium chloride 10 meq qd monitor weight and fluid balance Diabetes mellitus 761781 09 E11.9 consistent carb diet lantus 10 units qd-will increase to 14 units given elevated a1c finger stick mon, wed and fri in am monitor A1c in 3 months monitor for s/s of hypo/hyper glycemia Chronic back pain 138143 002 G89.29 neurontin 100 mg q hs ultram 25 mg tid prn monitor pain Atrial fibrillation 4943 6004 I48.19 eliquis 5 mg bid metoprolol tartrate 75 mg bid monitor rate and rhythm Anxiety 01570658 F41.1 zoloft 25 mg qd monitor anxiety psych eval and treat prn Gastroesop hageal reflux disease without esophagitis 076553475 K21.9 omeprazole 20 mg qd monitor for symptoms Hyperaldosteronism 38279 004 E26.09 spironolac tone 25 mg qd monitor Hyperlipidemia 50729491 E78.49 atorvastat in 80 mg qd will add fish oil 1000 mg qd monitor labs Insomnia 025088064 G47.0 9 melatonin 10 mg q hs monitor sleep Vitamin D deficiency 347 60840 E55.9 vitamin D3 1000 units qd monitor levels Recurrent falls 41230011 2 R29.6 PT/OT as needed korey lift monitor for safety Retention of urine 15379 4002 R39.198 detrol LA 4 mg qd urology as needed [id number] VIELKA JIMÉNEZ [address] [address] 09/16/2021 08:45:46 09/18/2021 12:04:33 Diabetes mellitus 19494712 E11.9 consistent carb diet lantus 14 units finger stick q am x 1 week then reassess check A1c around October 16will add metformin 500 mg bid monitor for s/s of hypo/hyper glycemia [id number] ADNREA ENGEL NP [facility] [address] 09/17/2021 14:48:48 09/19/2021 12:25:38 Dermal mycosis 83283255 B36.9 Poor response to nystatinBS elevated recentlyCo ntinue nystatin powder bid and prn x 30 daysKeep areas clean and dry - no brief in bed, and if needed, have it fit loosely to avoid bunching in the [place] area.Treat with diflucan - 200 mg x 1 dose, repeat in 1 wk Monitor closely. [id number] [facility] [address] 09/23/2021 08:39:55 09/25/2021 13:40:44 Diabetes mellitus 88345277 E11.9 consistent carb diet lantus 14 units will do finger sticks q am x 1 more week then reassess check A1c around October 1metformin 500 mg bid monitor for s/s of hypo/hyper glycemia [id number] Pam Ruiz MD [address] [place] [address] 10/03/2021 16:19:03 10/07/2021 13:57:14 Diabetes mellitus 19094092 E11.9 Accuchecks look better on adjusted meds. Continue lantus 14 U qd and metformin 500 mg BID.Will recheck HgA1C around ugars all <200 since 09/21, so daily checks d/c'd on 09/30Monito r prn. Vascular dementia 327393 004 F01.50 Continues at baselineCo ntinue supportive care, expect decline.HC P invoked, guardian in placeMonit or mood and behaviors. Psych consult prn. History of cerebrovascular accident 376649025 Z86.73 Left hemiparesi s and hemiplegia at baseline.P rovide supportive care.Monit or fo rnew sxs. Essential hypertension 18640678 I10 Had a very elevated SBP 2 weeks ago. Not documented since that time.Will order BP/P weekly.For now will continue spironolac tone 25 mg qd, amlodipine 5 mg qd and metoprolol 75 mg BID.Monito r BP and labs Diastolic heart failure 828611385 I50.32 Appears euvolemic. Continue meds as above.Jadyn tor resp. status, fluid status, wts and labs. Chronic back pain 031024 002 G89.29 Continue gabapentin 100 mg qhs and tramadol 25 mg TID prn.Monito r sxs. Atrial fibrillation 4943 6004 I48.19 Rate mostly in good control on meds as above. Had a pulse of 101 on last checkConti nue eliquis 5 mg BID for ACMonitor HR and bleeding risk. Anxiety 08744582 F41.1 Mood good today.Cont inue sertraline 25 mg qdMonitor mood.Consu lt psych prn Gastroesop hageal reflux disease without esophagitis 003956053 K21.9 Continue omeprazole 20 mg qd Monitor for sxs Hyperaldosteronism 38495 004 E26.09 Continue spironolac tone 25 mg qdMonitor prn. Hyperlipidemia 03117608 E78.49 Continue atorvastat in 80 mg qd and fish oil 1000 mg qdRecheck 10/16 Insomnia 979483060 G47.0 9 Continue melatonin 10 mg qhs Monitor sleep patterns. Vitamin D deficiency 347 05003 E56.8 Continue vitamin D3 1000 IU qd Monitor levels Recurrent falls 21384487 2 R29.6 Refuses to get out of bed.Contin ue fall precaution s.Monitor for safety. Retention of urine 50831 4002 R39.198 Hx of.Continu e detrol LA 4 mg qdMonitor urinary function Hypokalemia 36220483 E87 .6 Continue KCl 10 meq qd.Monitor labs q 3 months and prn. [id number] VIELKA JIMÉNEZ [facility] [address] [address] 10/18/2021 11:14:40 10/21/2021 15:47:31 Diabetes mellitus 54935512 E11.9 consistent carb diet lantus 14 units-will increase to 18 units qdA1c 10/16/21 is 9.9 up from 8.2 in July metformin 500 mg bid-will increase to 750 mg bid monitor for s/s of hypo/hyper glycemiare check A1c in 3 months (around January 16) [id number] VIELKA JIMÉNEZ [address] [address] 11/15/2021 12:01:45 11/19/2021 15:12:03 Hyperlipidemia 60596382 E78.49 atorvastat in 80 mg qd fish oil 1000 mg qd monitor labs-a bit better will just continue to monitor for now [id number] VIELKA JIMÉNEZ [address] [address] 12/03/2021 11:24:38 12/05/2021 08:26:30 Atrial fibrillation 71958911 I48.19 eliquis 5 mg bid metoprolol tartrate 75 mg bid monitor rate and rhythm Diabetes mellitus 180569 09 E11.9 consistent carb diet lantus 18 units qdmetformi n 750 mg bid monitor for s/s of hypo/hyper glycemiare check A1c in 3 months (around January 16) Essential hypertension 19617521 I10 spironolac tone 25 mg qd potasium chloride 10 meq qd norvasc 5 mg qd metoprolol tartrate 75 mg bid monitor b/p and labs Insomnia 671969352 G47.0 9 melatonin 10 mg q hstrazodon e was 25 mg q hs and increased to 50 mg q hs per psych recommenda tion monitor sleep [id number] Damien Kay MD [facility] [address] [address] 01/22/2022 11:19:40 01/27/2022 14:20:07 Atrial fibrillation 57779610 I48.19 maintained oneliquis 5 mg bidmetopro lol 75 mg qdmonitor for rate control Vascular dementia 957169 004 F01.50 currently stable at baselinemo nitor for behaviorsp sych eval prncontinu e supportive care Gastroesop hageal reflux disease without esophagitis 483781255 K21.9 omeprazole 20 mg qdmonitor for symptom reliefonly complaint is I dont like the food Primary insomnia 6308406 F51.01 improved controlmon itor need to titrate med [id number] [facility] [address] [address] 01/24/2022 12:47:54 01/27/2022 15:11:54 Vertigo 610175199 R42 noted vertigo with therapy will add meclizine 25 mg qd prn prior to therapy monitor Anxiety 84263424 F41.1 zoloft 25 mg qd-will increase to 50 mg qd monitor anxiety psych eval and treat prn [id number] ANDREA ENGEL NP [facility] [address] [address] 02/20/2022 12:23:01 02/25/2022 09:50:43 Anemia 876178382 D64.9 macrocytic heme test stools x 3 (on eliquis)co ntinue omeprazole 20 mg dailyPer pt. request will wait a week or 2 before rechecking labs - CBC, Fe profile, etc it or [id number] VIELKA JIMÉNEZ [facility] [address] 03/14/2022 10:45:57 03/19/2022 16:17:29 Essential hypertension 63516264 I10 spironolac tone 25 mg qd potasium chloride 10 meq qd norvasc 5 mg qd metoprolol tartrate 75 mg bid monitor b/p and labs Diabetes mellitus 214153 09 E11.9 consistent carb diet lantus 18 units qdmetformi n 750 mg bid monitor for s/s of hypo/hyper glycemiamo nitor A1c Atrial fibrillation 4943 6004 I48.19 eliquis 5 mg bid metoprolol tartrate 75 mg bid monitor rate and rhythm Vascular dementia 118463 004 F01.50 expect decline supportive care monitor for safety guardian in place psych eval and treat prn Vertigo 153988023 R42 meclizine 25 mg qd prn monitor [id number] Pam Ruiz MD [facility] [address] 05/08/2022 16:23:16 05/15/2022 15:12:18 Essential hypertension 95582500 I10 BP being checked every 2-3 wks, last reading high.For now will continue spironolac tone 25 mg qd, amlodipine 5 mg qd, and metoprolol 75 mg BID.Will request weekly BPs.Monito r labs, due in 07/2022 Diabetes mellitus 877001 09 E11.9 Continue lantus 18 units qd and metformin 750 mg BID.Monito r fingerstic ks prn and HgA1C q 6 months. Atrial fibrillation 4943 6004 I48.19 Rate in good control on meds as above.Cont inue eliquis 5 mg BID for AC.Monitor HR and bleeding risk. Vascular dementia 481223 004 F01.B0 Continues at baselineCo ntinue sertraline 25 mg qd, trazadone 50 mg qhs and gabapentin 100 mg qhs.Contin ue supportive care, expect decline.Michael tellez guardian.M onitor mood and behaviors. Psych consult prn. Vertigo 680337160 R42 Continue meclizine 25 mg qd prnMonitor sxs. Hypokalemia 52133937 E87 .6 Continue KCl 10 meq qd.Monitor labs yearly and prn. [id number] GERDA LACEY PA-C [facility] [address] [address] 05/22/2022 10:17:55 06/04/2022 20:01:57 Acute COVID-19 7638628279 U07.1 Given that Paxlovid is unavailabl e from the pharmacy, will start molnupirav ir 800 mg po bid x 5 days-start when available- does not require renal dose adjustment and there are no know interactio nsSupporti ve careContac t precaution s per facility protocolFo [facility] GERDA LACEY PA-C [facility] [address] [address] 07/14/2022 11:39:18 08/06/2022 12:45:34 Weight loss 96436871 R63.4 Consider d/c non-essent ial meds-Folic acid-Vit D3-Fish oilOn PPI Dyslipidemia 214153240 E 78.5 Fish oilstatin Type 2 [place] betes mellitus with peripheral angiopathy 372765858 E11.51 Last A1c excellent- consider decreasing LantusCons ider change admin time evening metformin to pre-dinner Monitor sugars and adjust meds prnNot on REY/ARB for renal protection -consider adding Vascular d ementia without behavioral disturbance 7595157126 4514651 F01.50 Refused SLUMS [id number] Marita Herrera MD [facility] [address] [address] 09/03/2022 07:53:44 09/05/2022 13:03:42 Vascular dementia 848007298 F01.B0 decline expectedwi ll monitor and support as neededsee meds for mixed anxiety/de pressive disorder Mixed anxi ety and depressive disorder 677244253 F41.8 gabapentin 100 mg at hstrazodon e 50 mg at hssertrali ne 25 mg dailywill monitor Diabetes mellitus 092972 09 E11.9 Lantus 18U dailywill monitor Diastolic heart failure 606430044 I50.32 aldactone 25 mg dailymetop rolol 75 mg bidwill monitor Atrial fibrillation 4433 6004 I48.19 apixaban 5 mg bidmetopro lol 75 mg bid for rate controlwil l monitor Essential hypertension 09403444 I10 spironolac tone 25 mg dailymetop rolol 75 mg bidamlodip ine 5 mg dailywill monitor Hyperlipidemia 36890887 E78.49 atorvastat in 80 mg dailywill monitor History of cerebrovascular accident 524625647 Z86.73 atorvastat in 80 mg dailyapixa ban 5 mg bidwill monitor Chronic pain 68845501 G8 9.29 tramadol 25 mg q8h prngabapen tin 100 mg at hsAPAP Gastroesop hageal reflux disease without esophagitis 206956546 K21.9 omeprazole 20 mg dailywill monitor Retention of urine 93432 4002 R39.198 tolterodin e ER 4 mg dailywill monitor [id number] VIELKA Foy [address] [address] 09/19/2022 11:40:16 09/24/2022 10:33:30 Vascular dementia 248212158 F01.B0 supportive careexpect declinepsy ch meds as belowmonit or mood Mixed anxi ety and depressive disorder 178766909 F41.8 stable gabapentin 100 mg qhstrazodo ne 50 mg qhssertral ine 25 mg qdmonitor mood Diabetes mellitus 652753 09 E11.9 pt with last A1c done in November 2021 and no BS noted in emarBS bid x 2 weeks then [employer] re-[id number] on 09/23/22cont inue Lantus 18 units q 1 pmcontinue metformin 750 mg bidmonitor BS and adjust meds prn Diastolic heart failure 004335740 I50.32 compensate daldactone 25 mg qdmetoprol ol 75 mg bidmonitor fluid status Atrial fibrillation 4943 6004 I48.19 apixaban 5 mg bidmetopro lol 75 mg bidmonitor for bleeding, rate control Essential hypertension 01360959 I10 bp normalspir onolactone 25 mg qdmetoprol ol 75 mg bidamlodip ine 5 mg qdmonitor bp and adjust meds prn Hyperlipidemia 76440122 E78.49 atorvastat in 80 mg qhscheck lipids, CMP, CBC on 09/23/22 Chronic pain 89198139 G8 9.29 tramadol 25 mg q8h prngabapen tin 100 mg qhsmonitor for pain relief Gastroesop hageal reflux disease without esophagitis 992987233 K21.9 omeprazole 20 mg dailymonit or for sxs Retention of urine 68928 4002 R39.198 tolterodin e ER 4 mg qdmonitor for retention Hypokalemia 18488820 E87 .6 assume previous dx of hypokalemi a with pt also on potassium sparing diuretic aldactoneK CL 10 MEQ qdcheck CMP on 09/23/22 [id number] ANDREA ENGEL NP [facility] [address] [address] 10/23/2022 10:56:00 10/30/2022 16:02:16 Diabetes mellitus 77614308 E11.9 A1C 5.6%, much lower than prior readings.N oted gradual weight loss, suspect reduced intake.BS bid x 2 weeks ordered in September, did not see any readings in EMARPlan -currently on Lantus 18 units q 1 pm - reduce to 10 units dailyconti nue metformin 750 mg bidmonitor BS BID for a week or 2, no SSI - adjust meds as needed Vascular dementia 305431 004 F01.B0 supportive careexpect declineCon tinue:Traz odone 50 mg q HSZoloft 25 mg dailymonit or mood, behaviorsP sych eval prnPt. declined participat ion with SLUMS Mixed anxi ety and depressive disorder 048542132 F41.8 stableCont inue:gabap entin 100 mg qhs trazodone 50 mg qhssertral ine 25 mg qdmonitor mood and behaviorsP sych eval prn Diastolic heart failure 665170606 I50.32 compensate dcontinue: aldactone 25 mg qdmetoprol ol 75 mg bidVSS, labs good, monitor CP status for change Atrial fibrillation 4943 6004 I48.19 On apixaban 5 mg bid for ACOn metoprolol 75 mg bid for rateCurren tly stableFoll ow VS, labs Essential hypertension 10328230 I10 VSSContinu e:spironol actone 25 mg qdmetoprol ol 75 mg bidamlodip ine 5 mg qdmonitor bp and adjust meds prn Hyperlipidemia 05821431 E78.49 atorvastat in 80 mg qhsLFTs WNL, Lipid panel acceptable Chronic pain 10744716 G8 9.29 No change:tra madol 25 mg q8h prngabapen tin 100 mg qhsmonitor for pain reliefNo usual PRNS in place (ie APAP) will add Gastroesop hageal reflux disease without esophagitis 809233239 K21.9 On omeprazole 30 mg dailyHas been stableWill attempt dose reduction - decrease to 10 mg dailymonit or for sxs Retention of urine 96202 4002 R39.198 continue tolterodin e ER 4 mg qdmonitor for retention Hypokalemia 94738844 E87 .6 Most recent K 4.1,Stop KCL 10 MEQ qdcheck BMP on 10/29 Anemia 043897635 D64.9 previously macrocytic , now microcytic Heme stool neg. back 2Rem ains on eliquisRem ains omeprazole 20 mg daily - reducing to 10 mg dailyCBC, Fe profile, etc was to be checked 03/03, does not appear this was doneWill Check CBC, Fe profile, B12 and folate tooSuspect may benefit from Fe replacemen t [id number] VIELKA Foy [facility] [address] 11/04/2022 13:45:26 11/07/2022 09:55:50 Diabetes mellitus 18199672 E11.9 A1C 5.6%, much lower than prior readingsBS bid x 2 weeks shows normal to low 100s, one reading at 167Plan -currently on Lantus 10 units q 1 pm - reduce to 5 units q 1 pmcontinue metformin 750 mg bidmonitor BS BID for a week or 2, no SSI - adjust meds as needed [id number] ANDREA ENGEL NP [facility] [address] 11/06/2022 14:13:03 11/12/2022 08:50:15 Diabetes mellitus 27352157 E11.9 A1C 5.6%, much lower than prior readingsMe ds being adjusted, BS being checked more frequently right now.Curren tly on Lantus 5 units q 1 pm and metformin 750 mg bidPlan -Stop lantusRedu ce glucophage to 500 mg bidChange BS to BID once a month and prn s/s hypo/hyper glycemiaFo llow A1Cs, tight control not indicated at this time [id number] Marita Herrera MD [facility] [address] [address] 12/17/2022 09:24:12 12/19/2022 13:22:19 Vascular dementia [id number] F01.B0 decline expectedwi ll monitor and support as neededsee meds for mixed anxiety/de pressive disorder Mixed anxi ety and depressive disorder 976488070 F41.8 gabapentin 100 mg at hstrazodon e 50 mg at hssertrali ne 25 mg dailywill monitor Diabetes mellitus 051213 09 E11.9 metformin 500 mg bidwill monitor Atrial fibrillation 4943 6004 I48.19 apixaban 5 mg bidmetopro lol 75 mg bid for rate controlwil l monitor Essential hypertension 88697514 I10 spironolac tone 25 mg dailymetop rolol 75 mg bidamlodip ine 5 mg dailywill monitor Diastolic heart failure 034013290 I50.32 spironolac tone 25 mg dailymetop rolol 75 mg bidwill monitor Chronic pain 46738911 G8 9.29 tramadol 25 mg q8h prngabapen tin 100 mg at hsAPAP 650 mg q6h prnPT/OT prn Gastroesop hageal reflux disease without esophagitis 140975397 K21.9 omeprazole 10 mg dailywill monitor History of cerebrovascular accident 565652257 Z86.73 atorvastat in 80 mg dailyapixa ban 5 mg bidwill monitor [id number] ANDREA ENGEL NP [facility] [address] [address] 02/12/2023 12:16:40 02/16/2023 12:50:02 Vascular dementia 740084973 F01.B0 Monitor mood, behaviors; expect progressiv e declinePsy ch following, appreciate input, adjust meds prnContinu e:gabapent in 100 mg HStrazodon e 50 mg HSzoloft 25 mg dailyGuard ianship in place Mixed anxi ety and depressive disorder 110972465 F41.8 Continue: gabapentin 100 mg at hstrazodon e 50 mg at hssertrali ne 25 mg dailymonit or mood, behaviors, adjust meds prn.Apprec iate Psych input. Diabetes mellitus 901166 09 E11.9 Currently on metformin 500 mg bidBS BID q month in 100sLast A1C 5.6% in September, due for recheck 02/15, ? if glucophage still needed Atrial fibrillation 4943 6004 I48.19 Continue:a pixaban 5 mg bid for ACmetoprol ol 75 mg bid for rate controlMon itor VS, CP status, labs, adjust prn Essential hypertension 05610759 I10 VSSContinu e:spironol actone 25 mg dailymetop rolol 75 mg bidamlodip ine 5 mg dailymonit or VS, labs, adjust prnCheck CBC, CMP x 1 - due 02/15 Diastolic heart failure 839826912 I50.32 Appears compensate dContinue: spironolac tone 25 mg dailymetop rolol 75 mg bidmonitor VS, weights, labs, s/s decompensa tionCMP x 1 - due 02/15 Chronic pain 94512954 G8 9.29 tramadol 25 mg q8h prn - stop due to non usegabapen tin 100 mg at hsAPAP 650 mg q6h prnPT/OT prn Gastroesop hageal reflux disease without esophagitis 654620184 K21.9 Currently on omeprazole 10 mg daily, no GI/GERD sx.Will stop med, monitor sx. If recur, consider restarting or adding pepcid.mon itor History of cerebrovascular accident 351727306 Z86.73 atorvastat in 80 mg dailyapixa ban 5 mg bidwill monitor labs, due 02/15 Retention of urine 26215 4002 R39.198 on tolterodin e ER 4 mg qd, ? if any benefitWil l stop and monitor voiding for change/ret ention [id number] Pam Ruiz MD [address] [address] 04/13/2023 19:15:44 05/05/2023 14:06:12 Vascular dementia 469784520 F01.B0 Remains at baselineCo ntinue sertraline 25 mg qd, trazadone 50 mg qhs and gabapentin 100 mg qhs.Contin ue supportive care, expect decline.Michael tellez guardian.M onitor mood and behaviors. Psych follows Essential hypertension 20017756 I10 Last BP was charted on 02/15 and was borderline .Continue spironolac tone 25 mg qd, amlodipine 5 mg qd, and metoprolol 75 mg BID.Monito r BP and labs. Diabetes mellitus 589100 09 E11.9 BS in good control. Continue lantus 18 units qd and metformin 750 mg BID.Monito r fingerstic ks prn and HgA1C q 6 months. Atrial fibrillation 4943 6004 I48.19 Rate in good control on meds as above.Cont inue eliquis 5 mg BID for AC.Monitor HR and bleeding risk. Vertigo 080012633 R42 Continue meclizine 25 mg qd prnMonitor sxs. Hypokalemia 22002040 E87 .6 Continue KCl 10 meq qd.Monitor labs yearly and prn. Mixed anxi ety and depressive disorder 738166185 F41.8 As above Diastolic heart failure 251508766 I50.32 Appears euvolemic. Continue meds as above.Jadyn tor resp. status, fluid status, wts and labs. Chronic pain 50487213 G8 9.29 Bench Hand c/o today.Cont inue gabapentin 100 mg qhs and APAP 650 mg q 6 hrs prnMonitor sxs Gastroesop hageal reflux disease without esophagitis 729596249 K21.9 No recurrent sxs since off omeprazole Monitor sxs. [id number] ANDREA ENGEL, LOREN [address] [address] 06/04/2023 14:14:20 06/08/2023 16:16:35 Vascular dementia 719032072 F01.B0 Remains at baselineCo ntinue sertraline 25 mg qd, trazadone 50 mg qhs and gabapentin 100 mg qhs.Contin ue supportive care, expect decline.Rodriguez s guardian.M onitor mood and behaviors. Psych followsSLU MS attempted 06/04/23, pt. refused participat ion. Mixed anxi ety and depressive disorder 414371257 F41.8 Currently stable, continue meds as abovePsych eval. prn Essential hypertension 01483668 I10 VSS, BP tends to run on the higher side of nl.Continu e spironolac tone 25 mg qd, amlodipine 5 mg qd, and metoprolol 75 mg BID.Contin ue to monitor BP and labs. Diabetes mellitus 875259 09 E11.9 BS in very good control.A1 C 6.6%Contin ue metformin 500 mg BID.Monito r fingerstic ks bid q month and prn and HgA1C q 6 months. Atrial fibrillation 4943 6004 I48.19 Rate in good control on meds as above.Cont inue eliquis 5 mg BID for AC.Monitor HR and bleeding risk. Vertigo 953574895 R42 Continue meclizine 25 mg qd prnMonitor sxs. Diastolic heart failure 690772475 I50.32 Appears euvolemic. Continue meds as above.Jadyn tor resp. status, fluid status, wts and labs. Chronic pain 38750490 G8 9.29 Bench Hand c/o today.Cont inue gabapentin 100 mg qhs and APAP 650 mg q 6 hrs prnMonitor sxs Gastroesop hageal reflux disease without esophagitis 192143135 K21.9 No recurrent sxs since off omeprazole Monitor sxs. Hyperlipidemia 74044874 E78.49 atorvastat in 80 mg qhsLFTs WNL, Lipid panel acceptable [id number] Marita Herrera MD [address] [address] 07/31/2023 07:29:15 08/04/2023 14:48:26 Vascular dementia 985200355 F01.B0 decline expectedwi ll monitor and support as neededsee meds for mixed anxiety/de pressive disorder Mixed anxi ety and depressive disorder 799587978 F41.8 gabapentin 100 mg at hstrazodon e 50 mg at hssertrali ne 25 mg dailywill monitor Atrial fibrillation 4943 6004 I48.19 apixaban 5 mg bidmetopro lol 75 mg bid for rate controlwil l monitor Diabetes mellitus 194029 09 E11.9 metformin 500 mg bidwill monitor Essential hypertension 96682631 I10 spironolac tone 25 mg dailymetop rolol 75 mg bidamlodip ine 5 mg dailywill monitor Diastolic heart failure 689201512 I50.32 spironolac tone 25 mg dailymetop rolol 75 mg bidwill monitor History of cerebrovascular accident 701656081 Z86.73 atorvastat in 80 mg dailyapixa ban 5 mg bidwill monitor [id number] ANDREA ENGEL NP [facility] [address] 08/18/2023 14:18:52 08/20/2023 11:34:28 Anemia 092697754 D64.9 Issues with macrocytic and microcytic anemia in past.Heme stool neg. 03/2022Med s reviewed - remains on eliquis for AC, tapered off omeprazole . Not on Fe. Plan -Heme test stools x 3Repeat CBC, Fe, TIBC, % sat, Ferritin, Retic. Ct., B 12, folate in am - start supplement (s) as indicated. Consider restarting PPIRemains on eliquisRep eat CBC depending on above resultsTra nsfuse prn Hgb. <7 or symptomati c. Full code [id number] Loni Love NP [facility] [address] [address] 08/20/2023 15:52:30 08/24/2023 12:20:19 Anemia 913532382 D64.9 Issues with macrocytic and microcytic anemia in past. she remains on eliquis for AC, tapered off omeprazole . Not on Fe. Plan - Heme test stools x 3,stool requested and pending for occult bld 08/19 start ferrous sulfate 325 mg po bid x 4 weeks, then 325 mg po daily for iron def anemiatypi chioma takes 2-3 months to resolve Consider restarting PPI Remains on eliquis repeat cbc, iron, ferritin, tibc, iron%, in 8 weeks Transfuse prn Hgb. <7 or symptomati c. hgb actually slightly better Full code [id number] Loni Love NP [facility] [address] [address] 09/03/2023 12:50:07 09/09/2023 09:30:46 Anemia 521200823 D64.9 Issues with macrocytic and microcytic anemia in past.she remains on eliquis for AC, tapered off omeprazole recentlypl an:09/02 will restart omeprazole 40 mg po daily, will likely need care home therapyHem e test stools x 3,stool requested and positive on 09/02 for occult blood ferrous sulfate 325 mg po bid x 4 weeks(star dimitri on 08/19)then 325 mg po daily for iron def anemiatypi chioma takes 2-3 months to resolveCon mattress specialist restarting PPIRemains on eliquisrep eat cbc, iron, ferritin, tibc, iron%, in 8 weeks and labs on 09/06Transf use prn Hgb. <7 or symptomati c. hgb actually improving History of cerebrovascular accident 095256452 Z86.73 atorvastat in 80 mg dailyapixa ban 5 mg bidwill monitor Atrial fibrillation 4943 6004 I48.19 apixaban 5 mg bidmetopro lol 75 mg bid for rate controlwil l monitor [id number] Loni Love NP [address] [address] 09/21/2023 12:04:30 09/23/2023 08:52:12 Anemia 936275763 D64.9 Issues with macrocytic and microcytic anemia in past.she remains on eliquis for AC, tapered off omeprazole recentlypl an: contferrou s sulfate 325 mg po bid x 4 weeks total (started on 08/19)then 325 mg po daily for iron def anemiatypi chioma takes 2-3 months to resolveon 09/02 restarted omeprazole 40 mg po daily, will likely need care home therapyHem e test stools x 3,stool requested and positive on 09/02 for occult blood Remains on eliquislab s on 09/06 stable with increase in h/hrepeat cbc, iron, ferritin, tibc, iron%, in 8 weeksTrans fuse prn Hgb. <7 or symptomati c. hgb actually improving History of cerebrovascular accident 342394352 Z86.73 atorvastat in 80 mg dailyapixa ban 5 mg bidwill monitor Atrial fibrillation 4943 6004 I48.19 apixaban 5 mg bidmetopro lol 75 mg bid for rate controlwil l monitor Vascular dementia 173185 004 F01.B0 decline expectedwi ll monitor and support as neededsee meds for mixed anxiety/de pressive disorder Mixed anxi ety and depressive disorder 137039440 F41.8 gabapentin 100 mg at hstrazodon e 50 mg at hssertrali ne 25 mg dailywill monitor Diabetes mellitus 828577 09 E11.9 BS stable 150smetfor min 500 mg bidwill monitor Essential hypertension 53513535 I10 bp stablespir onolactone 25 mg dailymetop rolol 75 mg bidamlodip ine 5 mg dailywill monitor Diastolic heart failure 101642021 I50.32 spironolac tone 25 mg dailymetop rolol 75 mg bidwill monitor [id number] ANDREA ENGEL NP [facility] [place] [address] 09/24/2023 13:31:22 09/29/2023 09:28:11 Anemia 311704009 D64.9 Issues with macrocytic and microcytic anemia in past. CBC in August showed drop in H/H, microcytic .Further labs indicated Fe def. anemia.Sto ol heme pos. x 1Started Fe bid, and omeprazole 40 mg qdRepeat labs improvedNo s/s active bleeding.R emains on AC for now.Repeat labs in October History of cerebrovascular accident 100852595 Z86.73 Continue:a torvastati n 80 mg dailyapixa ban 5 mg bidmonitor labs prn Atrial fibrillation 4943 6004 I48.19 Continue:a pixaban 5 mg bidmetopro lol 75 mg bid for rate controlmon itor labs, VS/HR; adjust tx. prn Vascular dementia 636772 004 F01.B0 decline expectedwi ll monitor and support as neededsee meds for mixed anxiety/de pressive disorderBI MS completed 09/24/23 = score 6/15 Mixed anxi ety and depressive disorder 209194980 F41.8 Currently stable, continue: gabapentin 100 mg at hstrazodon e 50 mg at hssertrali ne 25 mg dailywill monitor and adjust meds prnPsych eval prn Diabetes mellitus 048566 09 E11.9 BS in good controlcon tinue metformin 500 mg bidmonitor BS, A1C, adjust prn Essential hypertension 46008598 I10 bp stable, continue:s pironolact one 25 mg dailymetop rolol 75 mg bidamlodip ine 5 mg dailywill monitor vs, labs, adjsut prn Diastolic heart failure 863224944 I50.32 StableCont inue:joe nolactone 25 mg dailymetop rolol 75 mg bidmonitor VS, labs, weights, LS, sats for decompensa tion [id number] Loni Love NP [address] [address] 10/29/2023 11:30:39 11/03/2023 10:25:00 History of cerebrovascular accident 422170421 Z86.73 Continue:a torvastati n 80 mg dailyapixa ban 5 mg bidmonitor labs prn Vascular dementia 525595 004 F01.B0 decline expected with increased confusion latelywill monitor and support as neededsee meds for mixed anxiety/de pressive disorderBI MS completed 09/24/23 = score 10/30 Acute cystitis 30005465 N30.00 pt with increased confusion urine on 10/28 resulted.U rine resulted in nitrate positive, leukocyte small, epith cells 75, ketone trace, wbc 9, epith cells 75, bacteria moderate with culture showing gram negative rods 50,000-99, 000 and no sensitivit ies back yet.will treat due to symptomolo gy10/28 startcipro 250 mg po q 12 x 3daysno probiotic needed with short coursemoni tor mental status and for resolution repeat urine if needed and symptomati c [id number] Pam Ruiz MD [address] [address] 11/24/2023 21:03:57 12/09/2023 20:35:52 Vascular dementia 053193755 F01.B0 Mild at baselineMo od stable.Con tinue sertraline 25 mg qd, trazadone 50 mg qhs and gabapentin 100 mg qhs.Contin ue supportive care, expect decline.Rodriguez s guardian.M onitor mood and behaviors. Psych follows Mixed anxi ety and depressive disorder 701361243 F41.8 As above Essential hypertension 88626112 I10 Last BP was charted on 02/15 and was borderline .Continue spironolac tone 25 mg qd, amlodipine 5 mg qd, and metoprolol 75 mg BID.Monito r BP and labs. Diabetes mellitus 034007 09 E11.9 BS remains in good control when checked monthly.La HgA1C was 6.4 in 08/2023.Con tinue metformin 500 mg BID.Monito r fingerstic ks BID one day/month and HgA1C q 6 months. Atrial fibrillation 4943 6004 I48.19 Rate remains in good control on meds as above.Cont inue eliquis 5 mg BID for AC.Monitor HR and bleeding risk. Vertigo 863252487 R42 No current c/oContinu e meclizine 25 mg qd prnMonitor sxs. Hypokalemia 70784073 E87 .6 Continue KCl 10 meq qd.Monitor labs yearly and prn. Diastolic heart failure 659552523 I50.32 Continues to appear euvolemic. Continue meds as above.Jadyn tor resp. status, fluid status, wts and labs. Chronic pain 83172797 G8 9.29 Pain in adequate control.Co ntinue gabapentin 100 mg qhs and APAP 650 mg q 6 hrs prnMonitor sxs Gastroesop hageal reflux disease without esophagitis 997718737 K21.9 Restarted on meds in 08/2023, unclear why as no note found about sxs.Presum ably due to heme + stool.Curr ently asxaticCon tinue esomeprazo le 40 mg qdMonitor sxs. [id number] L[facility] Love [facility] [address] [address] 11/30/2023 08:00:22 12/03/2023 15:35:24 Vascular dementia 332554223 F01.B0 decline expected with increased confusion lately, might be her disease progressio n but will rule out infectious causeswill monitor and support as needed 11/29 pt with increased confusion per nursingof note: received cipro 250 mg po q 12 x 3days in October for probable UTI with urine contaminat ed monitor mental status11/29 repeat urinalysis and cbc with diff, and bmpBIMS completed 09/24/23 = score 10/30 Constipation 41908954 K5 9.00 mom 30 cc today for constipati onmonitor [id number] Loni Love NP [facility] [address] [address] 01/06/2024 10:32:13 01/11/2024 09:22:27 Vascular dementia 354058694 F01.B0 decline expectedmi ght be her disease progressio n with some confusionw ill monitor and support as neededlabs , urinalysis without obvious infectionm onitor mental statusBIMS completed 09/24/23 = score 6/15 Constipation 64103170 K5 9.00 senna dailymom prnmonitor Mixed anxi ety and depressive disorder 763270662 F41.8 As above Essential hypertension 28146954 I10 Last BP was charted on 02/15 and was borderline .Continues pironolact one 25 mg qdamlodipi ne 5 mg qdmetoprol ol 75 mg BID.Monito r BP and labs. Diabetes mellitus 656993 09 E11.9 BS remains in good control when checked monthly.La st HgA1C was 6.4 in 08/2023.Con tinue metformin 500 mg BID.Monito r fingerstic ks BID one day/month and HgA1C q 6 months. Atrial fibrillation 4943 6004 I48.19 Rate remains in good control on meds as above.Cont inueeliqui s 5 mg BID for AC.Monitor HR and bleeding risk. Vertigo 284504948 R42 No current c/oContinu emeclizine 25 mg qd prnMonitor sxs. Diastolic heart failure 838991495 I50.32 Continues to appear euvolemic. Continue meds as above.Jadyn tor resp. status, fluid status, wts and labs. Chronic pain 09752932 G8 9.29 Pain in adequate control.Co ntinuegaba pentin 100 mg qhsAPAP 650 mg q 6 hrs prnMonitor sxs Gastroesop hageal reflux disease without esophagitis 118757907 K21.9 Restarted on meds in 08/2023, unclear why as no note found about sxs.due to heme + stool.iron studies improving and nausea improvingC ontinueeso meprazole 40 mg qdMonitor sxs. [id number] ANDREA ENGEL NP [address] [address] 02/18/2024 10:01:55 02/19/2024 10:25:07 Mixed anxiety and depressive disorder 087725908 F41.8 Followed by Psych.Due to persistent depressed mood, recommendi ng sertraline be increased to 100 mg qd; agree, will change. Continue:g abapentin 100 mg at hs trazodone 50 mg at hsmelatoni n 10 mg q hs Monitor and continue to adjust meds prnAppreci ate Psych input, will continue to follow [id number] ANDREA ENGEL NP [address] [place] [address] 03/15/2024 14:20:29 03/16/2024 10:57:03 Mixed anxiety and depressive disorder 152443409 F41.8 Followed by Psych.Due to persistent depressed mood, zoloft increased to 100 mg qd about a month ago; everett. well so far. Continue:g abapentin 100 mg at hs trazodone 50 mg at hsmelatoni n 10 mg q hs Monitor mood, behaviors Vascular dementia 664608 004 F01.B0 decline expectedco ntinue emotional supportmon itor mental statusBIMS completed 09/24/23 = score 6/15 Constipation 44444178 K5 9.00 senna dailymom prnmonitor Essential hypertension 66425023 I10 Last BP was charted on 02/15 and was borderline .Continues pironolact one 25 mg qdamlodipi ne 5 mg qdmetoprol ol 75 mg BID.Monito r BP and labs. Diabetes mellitus 257207 09 E11.9 BS remains in good control when checked monthly.Ailin gonzalez HgA1C 5.1%Record ed BS low-mid 100s.Britney nue metformin 500 mg BID.Monito r fingerstic ks BID one day/month and HgA1C q 6 months. Atrial fibrillation 4943 6004 I48.19 Rate remains in good control on metoprolol Continueel iquis 5 mg BID for AC.Monitor HR and bleeding risk. Vertigo 592959818 R42 No current c/oContinu emeclizine 25 mg qd prnMonitor sxs. Diastolic heart failure 827787744 I50.32 Appears compensate d.Continue aldactoneM onitor resp. status, fluid status, wts and labs. Chronic pain 60759658 G8 9.29 Pain in adequate control.Co ntinuegaba pentin 100 mg qhsAPAP 650 mg q 6 hrs prnMonitor sxs Gastroesop hageal reflux disease without esophagitis 089647689 K21.9 Continuees omeprazole 40 mg qdMonitor sxs. Anemia 574538577 D64.9 Issues with macrocytic and microcytic anemia in past. CBC in August showed drop in H/H, microcytic .Further labs indicated Fe def. anemia.Sto ol heme pos. x 1Continue Fe qd, and esomeprazo le 40 mg qdRepeat labs improvedNo s/s active bleeding.R emains on AC for now.Monito r CBC. History of cerebrovascular accident 195626820 Z86.73 Continue:a torvastati n 80 mg dailyapixa ban 5 mg bidmonitor labs prn Hyperlipidemia 31666904 E78.49 atorvastat in 80 mg qhsfish oil dailyLFTs WNL, Lipid panel WNR. Vitamin D deficiency 347 07366 E56.8 Continue oral supplement sD level prn [id number] Loni Love NP [facility] [address] [place] [address] 04/11/2024 08:09:34 04/13/2024 08:48:14 Mixed anxiety and depressive disorder 127148506 F41.8 Followed by Psych.Due to persistent depressed mood, zoloft increased to 100 mg qd about a month ago; everett. well so far. Continue:g abapentin 100 mg at hs trazodone 50 mg at hsmelatoni n 10 mg q hs Monitor mood, behaviors Vascular dementia 781430 004 F01.B0 decline expectedco ntinue emotional supportmon itor mental statusBIMS completed 09/24/23 = score 6/15 Essential hypertension 37622840 I10 Last BP was charted on 02/15 and was borderline .Continuee ntresto 49-51 po bid(note in dc summary states bid, however in narrative mentions daily) cont this dose as she is stable and bp in good control and monitor for need to adjust)met oprolol 50 mg BID.Monito r BP and labs. Diabetes mellitus 432719 09 E11.9 BS remains in good control when checked monthly.La HgA1C 5.1%Record ed BS low-mid 100s.Britney nue metformin 500 mg BID.jardia nce 10 mg po dailyMonit or fingerstic ks BID one day/month and HgA1C q 6 months. Atrial fibrillation 4943 6004 I48.19 AFwith RVF: started on amiodarone 200 mg bid for 28 days total, then daily.Rate remains in good control on metoprolol and amiodarone since backContin ueeliquis 5 mg BID for AC.Monitor HR and bleeding risk. Diastolic heart failure 323613838 I50.32 CHF: diuresed wtih IV lasix and [...] fluid status, wts and labs. Chronic pain 65631473 G8 9.29 Pain in adequate control.Co ntinuegaba pentin 100 mg qhsAPAP 650 mg q 6 hrs prnMonitor sxs Gastroesop hageal reflux disease without esophagitis 695554647 K21.9 Continuees omeprazole 40 mg qdMonitor sxs. Anemia 948201048 D64.9 Issues with macrocytic and microcytic anemia in past felt to have severe anemia without scope in hosp given three units PRBCs in hosp..with hx of Fe def. anemia.Con tinue Fe qd, and esomeprazo le 40 mg qdRepeat labs improvedNo s/s active bleeding.R emains on AC for now.Monito r CBC weekly x 3. History of cerebrovascular accident 730773727 Z86.73 Continue:a torvastati n 80 mg dailyapixa ban 5 mg bidmonitor labs prn Pneumonia 002485497 J18. 9 resolvedPn eumonia/hy poxia tx with abx and weaned to 2l o2 overnight. Blood cultures neg on recheck of initial contaminan t. Chest xray: pulm edema with small pleural effusions with pneumonia noted on 04/04/24.c bc weekly [id number] for s/s pna sequelae or hypoxiacon mattress specialist cxr prn for fu Hypoxia 178535895 R09.02 resolvedre lated to pneumonia and gi bleed and chf in hospitalwe aned off [id number] for sequqelae [id number] Loni Love NP [facility] [address] [place] [address] 04/18/2024 15:33:11 04/19/2024 09:45:16 Anemia 958645341 D64.9 Issues with macrocytic and microcytic anemia in past felt to have severe anemia without scope in hosp given three units PRBCs in hosp..with hx of Fe def. anemia.Con tinueFe qd,esomepr azole 40 mg qdRepeat labs improved last weekNo s/s active bleeding.R emains on AC for now.Monito r CBC weekly x 2. Diastolic heart failure 559564104 I50.32 CHF: diuresed wtih IV lasix and [...] AC.Monitor HR and bleeding risk. Vascular dementia 812796 004 F01.B0 decline expectedco ntinue emotional supportmon itor mental statusBIMS completed 09/24/23 = score 6/15 Essential hypertension 21568644 I10 Last BP stableCont inueentres to 49-51 po bid(note in dc summary states bid, however in narrative mentions daily) cont this dose as she is stable and bp in good control and monitor for need to adjust)met oprolol 50 mg BID.Monito r BP and labs. Diabetes mellitus 675794 09 E11.9 BS remains in good control when checked monthly.La st HgA1C 5.1%Record ed BS low-mid 100s.Britney nue metformin 500 mg BID. jardiance 10 mg po dailyMonit or fingerstic ks BID one day/month and HgA1C q 6 months. Chronic pain 83281567 G8 9.29 Pain in adequate control.Co ntinuegaba pentin 100 mg qhsAPAP 650 mg q 6 hrs prnMonitor sxs Gastroesop hageal reflux disease without esophagitis 764428109 K21.9 Continuees omeprazole 40 mg qdMonitor sxs. Mixed anxi ety and depressive disorder 837810337 F41.8 Followed by Psych.Due to persistent depressed mood, zoloft increased to 100 mg qd about a month ago; everett. well so far.Contin ue:gabapen tin 100 mg at hs trazodone 50 mg at hsmelatoni n 10 mg q hsMonitor mood, behaviors History of cerebrovascular accident 858027213 Z86.73 Continue:a torvastati n 80 mg dailyapixa ban 5 mg bidmonitor labs prn Intertrigo 70580442 L30. 4 house antifungal cream to groin area bid and prn until resovledmo nitor Bilateral heel pain 1563 446227 7219079 M79.672 left heel pain with bilateral boggy heelsskin prep to bilateral heels bid until healedelev ate heels on pillow and offload pressure [id number] Loni Love NP [address] [address] 04/21/2024 10:25:22 04/22/2024 11:27:53 Anemia [id number] D64.9 Issues with macrocytic and microcytic anemia in past felt to have severe anemia without scope in hosp given three units PRBCs in hosp..with hx of Fe def. anemia.Con tinueFe qd,esomepr azole 40 mg qdRepeat labs improved last weekNo s/s active bleeding.R emains on AC for now.Monito r CBC weekly Intertrigo [id number] L30. 4 house antifungal cream to groin area bid and prn until resolvedmo nitor Bilateral heel pain 1563 290294 7981547 M79.672 left heel pain/ redness with bilateral boggy heelsskin prep to bilateral heels bid until healedelev ate heels on pillow and offload enkfmmxd69 /4 bunny boots to bilateral heels for pressure suwqtl46/5 protein liquid 30 cc po dailymonit or for changes or open areas Diastolic heart failure 554614193 I50.32 CHF: diuresed wtih IV lasix and [...] AC.Monitor HR and bleeding risk. Vascular dementia 745715 004 F01.B0 decline expectedco ntinue emotional supportmon itor mental statusBIMS completed 09/24/23 = score 6/15 Essential hypertension 55928164 I10 Last BP stableCont inueentres to 49-51 po bid(note in dc summary states bid, however in narrative mentions daily) cont this dose as she is stable and bp in good control and monitor for need to adjust)met oprolol 50 mg BID.Monito r BP and labs. Diabetes mellitus 913292 09 E11.9 BS remains in good control lately, monitor closely with decreased po intakeLast HgA1C 5.1%Record ed BS low-mid 100s.Britney nue metformin 500 mg BID. jardiance 10 mg po dailyMonit or fingerstic ks BID one day/month and HgA1C q 6 months. 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 Mixed anxi ety and depressive disorder 221857116 F41.8 Followed by Psych.Due to persistent depressed mood, zoloft increased to 100 mg qd about a month ago; everett. 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 / 5 order mashed potatoes and oatmeal daily as requested1 06/22 add remeron 7.5 mg po qhs x 1 week and increase to 15 mg po qhs after12 dc trazodone with start of qrplers65/ psych consult for depression Continuees omeprazole 40 mg qdMonitor sxs.12 cbc and cmp in am12/5 spoke with guardian and she is a full code at this time, he is updated and will notify son Pretty manriquez sending to ER if further decline At [facility] risk for imbalanced nutrition, less than body requirements 157611458 Z91.89 with vomiting and decreased po /5 start pepcid 20 mg po at 534979/5 schedule zofran 4 mg po at 800, 1200, and 5 pm wtih meals x 14 days , cont prn dose for nausea/vom iting04/21 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 venfboi79/ 5 order mashed potatoes and oatmeal daily as requested1 06/22 add remeron 7.5 mg po qhs x 1 week and increase to 15 mg po qhs after04/21 dc trazodone with start of uorrbyv81/ 5 psych consult for depression Continuees omeprazole 40 mg qdMonitor sxs.04/21 cbc and cmp in am04/21 spoke with guardian and she is a full code at this time, he is updated and will notify son Eraeqp21/5 weight weeklycons ider Er if continues to decline Constipation 08534280 K5 9.00 no BM in 3 days and very small, however not eating much04/21 start bisacodyl supp and mom todayconts judith dailymom prnmonitor Nausea and vomiting 1693 1999 R11.2 n/v see above [id number] Loni Love NP [facility] [address] [address] 04/22/2024 12:15:11 04/25/2024 13:28:48 Hyperkalemia 55076249 E87.5 acute hyperkalem ia with critical lab [...] SEND TO ER For Evaluation and labs [id number] Loni Love NP [facility] [address] [address] 04/27/2024 12:19:09 04/29/2024 14:18:13 Hyperkalemia 19021505 E87.5 acute hyperkalem ia with critical lab of 6.7 found to be 7.0 in er on 04/22 felt resolved with IVF and lokelma, dc of potassium. Ekg without sig ischemic changes.juarez pplement and adjusted entresto to low dose, note recently low potassium with changes in hosp and will need to monitor closelybmp and cbc on 04/27 and will repeat on 04/29 then weeklymoni tor Diastolic heart failure 716273794 I50.32 CHF: diuresed wtih IV lasix and started on po furosemide with potassium repletion. TTE on 04/01 EF 25-30% with mod-severe left ventricula r systolic fx consistent with mid LV Takotsubo. Cardiology consulted: contfurose mide 20 mg po change to qdmetoprol ol 50 mg bid.Entres to low dose decreased to 24-26 bidempagli flozin(jar diance) 10mg po qdcardiolo gy fu outpt. 04/18 cardiology nsg to scheduleMo nitor resp. status, fluid status, wts and labs.appea rs euvolemic today Atrial fibrillation 4943 6004 I48.19 seems controlled AF with RVF: started on amiodarone 200 mg bid for 28 days total, then daily.cont furosemide changed to 20 mg po qdentresto low dose po bid 24-26metop rolol 50 mg bidamiodar one 200 mg po bid, change to qd on 05/06eliqu is 5 mg BID for AC.Monitor HR and bleeding risk. Vascular dementia 437484 004 F01.B0 decline expectedco ntinue emotional supportmon itor mental statusBIMS completed 09/24/23 = score 6/15 Essential hypertension 77672495 I10 Last BP stableCont inuecontla six 20 mg po qdfurosemi de changed to 20 mg po qdentresto low dose po bid 24-26metop rolol 50 mg bidamiodar one 200 mg po bid, change to qd on 05/06eliqu is 5 mg BID for AC.Monitor BP and labs. Diabetes mellitus 644545 09 E11.9 contLast HgA1C 5.1%Record ed BS low-mid 100s.Britney nue metformin 500 mg BID. jardiance 10 mg po dailyMonit or fingerstic ks BID one day/month and HgA1C q 6 months. Chronic pain 89258372 G8 9.29 Pain in adequate control.Co ntinuegaba pentin 100 mg qhsAPAP 650 mg q 6 hrs prnMonitor sxs Gastroesop hageal reflux disease without esophagitis 709848699 K21.9 see vomiting and decreased po intakecont pepcid 20 mg po at 1200zofran prndietici an to eval for food choicesrem bello 15 mg po qhs afteresome prazole 40 mg qdMonitor sxs. Mixed anxi ety and depressive disorder 349217008 F41.8 Followed by Psych.zolo ft 100 mg qdContinue :gabapenti n 100 mg at hs melatonin 10 mg q hs Monitor mood, behaviors History of cerebrovascular accident 250412392 Z86.73 Continue:a torvastati n 80 mg dailyapixa ban 5 mg bidmonitor labs prn Acute nont raumatic kidney injury 5147461749 59626 N17.9 reinaldo felt resolved with IVF and med changesmon itor Chronic ki dney disease 293545038 N18.9 CKD with REINALDO from dehydratio nPt with increased BUN and CR on admit to ER resolving to baselinemo nitor bmp weekly and on 04/29avoid nephrotoxi c meds if ablemonito r Vomiting 710018429 R11.1 0 vomiting prior to ER admitno vomiting mentioned in Erabd/pelv is CT done and results not in paperwork- marked on summary as mnajqiz19/ 11 will ask nursing to obtian ct resultssee reflux for meds and planmonito r Anemia 338880580 D64.9 Issues with macrocytic and microcytic anemia in past felt to have severe anemia without scope in hosp given three units PRBCs in hosp..on march 2024 admissionw ith hx of Fe def. anemia.Con tinueFe qd,esomepr azole 40 mg qdRepeat labs improved last weekNo s/s active bleeding.R emains on AC for now.Monito r CBC weekly Leukocytosis 098618528 D 72.829 resolved in hosp without source of infection noted [id number] L[facility] [address] 05/05/2024 10:20:30 05/09/2024 12:29:42 Hyperkalemia 10589062 E87.5 resolvedac [place] hyperkalem ia with critical lab of 6.7 found to be 7.0 in er on 04/22 felt resolved with IVF and kelley roper of potassium. Ekg without sig ischemic changes.juarez pplement and adjusted entresto to low dose, note recently low potassium with changes in hosp and will need to monitor closelybmp stable and will be done weekly Chronic ki dney disease 396241203 N18.9 CKD with REINALDO from dehydratio nPt with increased BUN and CR on admit to ER resolving to baselinemo nitor bmp weeklyavoi d nephrotoxi c meds if ablemonito r Vomiting 693443730 R11.1 0 resolved recentlyab d/pelvis CT done and results not in paperwork- marked on summary as zuutaco01/ 11 will ask nursing to obtian ct bsltobe86/ 19 will reask nursing to obtain ct resultssee reflux for meds and planmonito r Diastolic heart failure 564310759 I50.32 CHF: diuresed wtih IV lasix and started on po furosemide with potassium repletion. TTE on 04/01 EF 25-30% with mod-severe left ventricula r systolic fx consistent with mid LV Takotsubo. Cardiology consulted: appt pendingcon tfurosemid e 20 mg po change to qdmetoprol ol 50 mg bid.Entres to low dose decreased to 24-26 bidempagli flozin(jar diance) 10mg po qdcardiolo gy fu outpt. -nsg to scheduleMo nitor resp. status, fluid status, wts and labs.appea rs euvolemic today Atrial fibrillation 4943 6004 I48.19 seems controlled AF with RVF: started on amiodarone 200 mg bid for 28 days total, then daily.cont furosemide changed to 20 mg po qdentresto low dose po bid 24-metop rolol 50 mg bidamiodar one 200 mg po bid, change to qd on 05/06eliqu is 5 mg BID for AC.Monitor HR and bleeding risk. Vascular dementia 588343 004 F01.B0 decline expectedco ntinue emotional supportmon itor mental statusBIMS completed 09/24/23 = score 6/15 Essential hypertension 00299124 I10 Last BP stableCont inuecontla six 20 mg po qdfurosemi de changed to 20 mg po qdentresto low dose po bid 24-26metop rolol 50 mg bidamiodar one 200 mg po bid, change to qd on 05/06eliqu is 5 mg BID for AC.Monitor BP and labs. Diabetes mellitus 553479 09 E11.9 stableLast HgA1C 5.1%Record ed BS low-mid 100s.Britney nue metformin 500 mg BID. jardiance 10 mg po dailyMonit or fingerstic ks BID one day/month and HgA1C q 6 months. Chronic pain 52153849 G8 9.29 Pain in adequate control.Co ntinuegaba pentin 100 mg qhsAPAP 650 mg q 6 hrs prnMonitor sxs Gastroesop hageal reflux disease without esophagitis 356592698 K21.9 vomiting decreasedc ontpepcid 20 mg po at 1200zofran prndietici an to eval for food choicesrem bello 15 mg po qhs afteresome prazole 40 mg qdMonitor sxs. Mixed anxi ety and depressive disorder 009828521 F41.8 Followed by Psych.zolo ft 100 mg qdContinue :gabapenti n 100 mg at hs melatonin 10 mg q hs Monitor mood, behaviors History of cerebrovascular accident 880790719 Z86.73 Continue:a torvastati n 80 mg dailyapixa ban 5 mg bidmonitor labs prn Anemia 373850419 D64.9 Issues with macrocytic and microcytic anemia in past felt to have severe anemia without scope in hosp given three units PRBCs in hosp..on march 2024 admissionw ith hx of Fe def. anemia.Con tinueFe qd,esomepr azole 40 mg qdRepeat labs improved last weekNo s/s active bleeding.R emains on AC for now.Monito r CBC weekly Leukocytosis 684288078 D 72.829 resolved in hosp without source of infection noted Adult fail ure to thrive syndrome 571238647 R62.7 pt with failure to thrive in generalcon tpepcid 20 mg po at 1200schedu le zofran 4 mg po at 800, 1200, and 5 pm wtih meals x 14 days total, cont prn dose for nausea/vom itingdieti jenelle to eval for food choicesrem bello 15 mg po qhs afterpsych consult for depression esomeprazo le 40 mg qdMonitor sxs.she has a court appt guardian and she is a full code at this time, he is updated and will notify son Luis Fernando, however remains full codeconsid er sending to ER if further decline At [facility] ed risk for imbalanced nutrition, less than body requirements 509550338 Z91.89 see above failure to thrive Nausea and vomiting 1693 1999 R11.2 resolved with above regimenn/v see above Constipation 98895311 K5 9.00 contsenna dailymom prnmonitor Bilateral heel pain 1563 368361 0506393 M79.672 left heel pain/ redness with bilateral boggy heelsskin prep to bilateral heels bid until healedelev ate heels on pillow and offload pressurere fused bunny boots to bilateral heels for pressure relief and foam dressingsp rotein liquid 30 cc po dailymonit or for changes or open areas Hyperlipidemia 94805784 E78.49 atorvastat in 80 mg qhsfish oil dailyLFTs WNL, Lipid panel WNR. Vitamin D deficiency 347 25083 E56.8 Continue oral supplement sD level prn [id number] Loni Love, LOREN [address] [address] 05/23/2024 15:44:10 05/24/2024 09:35:14 Chronic kidney disease 501581665 N18.9 CKD with REINALDO from dehydratio nPt with increased BUN and CR on admit to ER resolving to baseline, now with decreased po intake and increased bun/cr againshe does appear euvolemic on exam1/ due to increased bun/crenco urage po fluidsdecr ease metformin to 500mg po dailydecre ase lasix to from 20 mg po to 10 mg qddc gabapentin monitor bmp weekly for changesavo id nephrotoxi c meds if ableencour age po fluidsmoni torconside r further reducing nephrotoxi c meds as needed, recheck labs weekly Diastolic heart failure 759867066 I50.32 CHF: diuresed wtih IV lasix and started on po furosemide with potassium repletion. TTE on 04/01 EF 25-30% with mod-severe left ventricula r systolic fx consistent with mid LV Takotsubo. Cardiology consulted: appt pendingstr ess test sched for 06/22/24 NPO 3 hours priorcontd ecrease furosemide to 10 mg po qdmetoprol ol 50 mg bid.Entres to low dose decreased to 24-26 bid recentlyem pagliflozi n(jardianc e) 10mg po qdcardiolo gy fu outpt. -nsg to scheduleMo nitor resp. status, fluid status, wts and labs.appea rs euvolemic today Atrial fibrillation 4943 6004 I48.19 seems controlled AF with RVF: started on amiodarone 200 mg bid for 28 days total, then daily.cont decrease lasix to 10 mg po qdentresto low dose po bid 24-26metop rolol 50 mg bidamiodar one 200 mg po bid, change to qd on 05/06eliqu is 5 mg BID for AC.Monitor HR and bleeding risk. Vascular dementia 687590 004 F01.B0 decline expectedco ntinue emotional supportmon itor mental statusBIMS completed 09/24/23 = score 6/15 Essential hypertension 71820835 I10 Last BP stableCont inuecon11/09 decrease lasix from 20 mg po qd to 10 mg po qdentresto low dose po bid 24-metop rolol 50 mg bidamiodar one 200 mg po bid, change to qd on 05/06eliqu is 5 mg BID for AC.Monitor BP and labs. Diabetes mellitus 465237 09 E11.9 stableLast HgA1C 5.1%Record ed BS low-mid 100s.Britney nue 05/23 decrease to 500 mg po daily for increased bun/cr and decresased eating jardiance 10 mg po dailyMonit or fingerstic ks BID one day/month and HgA1C q 6 months.rep eat bun/cr this week Chronic pain 11070740 G8 9.29 Pain in adequate control.Co ntinue dc gabapentin 100 mg qhsAPAP 650 mg q 6 hrs prnMonitor sxs and need for pain relief Gastroesop hageal reflux disease without esophagitis 736224048 K21.9 vomiting decreasedc ontpepcid 20 mg po at 1200zofran prndietici an to eval for food choicesrem bello 15 mg po qhs afteresome prazole 40 mg qdMonitor sxs. Mixed anxi ety and depressive disorder 354170785 F41.8 Followed by Psych.zolo ft 100 mg qdContinue :dc gabapentin 100 mg at hs melatonin 10 mg q hs Monitor mood, behaviors History of cerebrovascular accident 936876826 Z86.73 Continue:a torvastati n 80 mg dailyapixa ban 5 mg bidmonitor labs prn Anemia 140069667 D64.9 Issues with macrocytic and microcytic anemia in past felt to have severe anemia without scope in hosp given three units PRBCs in hosp..on march 2024 admissionw ith hx of Fe def. anemia.Con tinueFe qd,esomepr azole 40 mg qdRepeat labs improved last weekNo s/s active bleeding.R emains on AC for now.Monito r CBC weekly Adult fail ure to thrive syndrome 275922414 R62.7 pt with failure to thrive in generalcon tpepcid 20 mg po at 1200schedu le zofran 4 mg po at 800, 1200, and 5 pm wtih meals x 14 days total, cont prn dose for nausea/vom itingdieti jenelle to eval for food choicesrem bello 15 mg po qhs afterpsych consult for depression esomeprazo le 40 mg qdMonitor sxs.she has a court appt guardian and she is a full code at this time, he is updated and will notify son Luis Fernando, however remains full codeconsid er sending to ER if further decline At [facility] ed risk for imbalanced nutrition, less than body requirements 165422466 Z91.89 see above failure to thrivecont to have decreased wgt regardless of remeron [id number] [facility] [address] 06/01/2024 12:27:47 06/03/2024 15:04:56 Chronic kidney disease 667814012 N18.9 CKD with REINALDO from dehydratio n now improvingC KD improving with med titrations she does appear euvolemic on examencour age po fluidsmetf ormin, lasix, reduced and gabapentin dc'dmonito r bmp weekly for changesavo id nephrotoxi c meds if ableencour age po fluidsmoni torconside r further reducing nephrotoxi c meds as needed, recheck labs weekly with bnp Diastolic heart failure 296544647 I50.32 bp stable and euvolemic todayCHF: diuresed [...] low dose decreased to 24-26 bid recentlyem paggriseldaflozi n(jardianc e) 10mg po qdcardiolo gy fu [...] AC.Monitor HR and bleeding risk. Vascular dementia 289465 004 F01.B0 decline expectedco ntinue emotional supportmon itor mental statusBIMS completed 09/24/23 = score 6/15 Essential hypertension 04533538 I10 Last BP stable 130/4Conti nuecontlas ix 10 mg po qdentresto low dose po bid 24-metop rolol 50 mg bidamiodar one 200 mg po bid, changed to qd on 05/06eliqu is 5 mg BID for AC.Monitor BP and labs. Diabetes mellitus 145768 09 E11.9 stable 118-[address] HgA1C 5.1%Record ed BS low-mid 100s.Britney nue metformin 500 mg po daily jardiance 10 mg po dailyMonit or fingerstic ks BID one day/month and HgA1C q 6 months.rep eat bun/cr this week Chronic pain 46791105 G8 9.29 Pain in adequate control.Co ntinueAPAP 650 mg q 6 hrs prnMonitor sxs and need for pain relief Mixed anxi ety and depressive disorder 101017528 F41.8 Followed by Psych.zolo ft dc'd per psych reccontmel atonin 10 mg q hs Monitor mood, behaviors Anemia 376388260 D64.9 labs stable as abvoepast Issues with [...] weekly Adult fail ure to thrive syndrome 032939492 R62.7 pt with failure to thrive in [...] sending [facility] if [facility] decline [facility] for imbalanced nutrition, less than body requirements 816291850 Z91.89 see above failure to thrivethis week weight 99 lbs same as last weekdietic justus followingc ont to have decreased wgt regardless of remeron [id number] Loni Love NP [address] [address] 06/27/2024 10:56:03 06/28/2024 14:04:19 Mixed anxiety and depressive disorder 447772772 F41.8 Followed by Psych.alex marshall dc'd per psych rec and doing well in good spiritscon tmelatonin 10 mg q hs Monitor mood, behaviors Chronic ki dney disease 696374799 N18.9 CKD with REINALDO from dehydratio n now improvingC KD improving with med titrations she does appear euvolemic on examencour age po fluidsmetf ormin, lasix, reduced and gabapentin dc'dmonito r bmp weekly for changesavo id nephrotoxi c meds if ableencour age po fluidsmoni torconside r further reducing nephrotoxi c meds as needed, recheck labs weekly with bnp Diastolic heart failure 009855190 I50.32 bp stable and euvolemic todayCHF: diuresed wtih IV lasix and started on po furosemide with potassium repletion. TTE on 04/01 EF 25-30% with mod-severe left ventricula r systolic fx consistent with mid LV Takotsubo. Cardiology consulted: appt pending stress test pendingcon tfurosemid e 10 mg po qdmetoprol ol 50 mg bid.Entres to low dose - bidempagli flozin(jar diance) 10mg po qdcardiolo gy fu outpt. -nsg to scheduleMo nitor resp. status, fluid status, wts and labs.appea rs euvolemic todaybnp bmp cbc weekly until stable Vascular dementia 990353 004 F01.B0 decline expectedco ntinue emotional supportmon itor mental statusBIMS completed 09/24/23 = score 10/30 Essential hypertension 58355041 I10 bp stable 132/60cont lasix 10 mg po qdentresto low dose po bid -metop rolol 50 mg bidamiodar one 200 mg po qdeliquis 5 mg BID for AC.Monitor BP and labs. Diabetes mellitus 594616 09 E11.9 stableLast HgA1C 5.1%Contin ue metformin 500 mg po daily jardiance 10 mg po dailyMonit or fingerstic ks BID one day/month and HgA1C q 6 months. Chronic pain 20440789 G8 9.29 Pain in adequate control.Co ntinueAPAP 650 mg q 6 hrs prnMonitor sxs and need for pain relief Anemia 860286945 D64.9 labs stablepast Issues with macrocytic and microcytic anemia in past felt to have severe anemia without scope in hosp given three units PRBCs in hosp..on march 2024 admissionw ith hx of Fe def. anemia.Con tinueFe qd,esomepr azole 40 mg qdNo s/s active bleeding.R emains on AC for now.Monito r CBC weekly for now Adult fail ure to thrive syndrome 836451531 R62.7 pt with failure to thrive in generalsee ms gerd and vomiting resolvedco nt2/10 dc pepcidzofr an sched and prn dose [...] for AC.Monitor HR and bleeding risk. At [facility] ed risk for imbalanced nutrition, less than body requirements 638050188 Z91.89 see above failure to thriveweig ht stablizing but low 101 lbsdietici an followingr emeron 15 mg po qhs [id number] Damien Kay MD [facility] [address] [address] 07/30/2024 13:33:15 08/01/2024 14:15:42 Adult failure to thrive syndrome 222047497 R62.7 now with continued weight lossnow on supplement sdietary to followwill start remeron 7.5 mg qhs if decline continues Vascular dementia 212433 004 F01.B0 baseline dementiagu ardianship in [facility] supportive caremonito r for behaviors Diastolic heart failure 955031173 I50.32 entresto 24-26 mg bidlasix 10 mg qammonitor respirator y status Atrial fibrillation 4943 6004 I48.19 eliquis 5 mg bidmetopro lol 50 mg bidamiodar one 200 mg qdmonitor for rate control [id number] Loni Love NP [facility] [place] [address] [place] [address] 08/05/2024 11:28:29 08/08/2024 15:43:28 Adult failure to thrive syndrome 539475960 R62.7 continued weight [place] supplement sdietary to followreme catina 15mg qhs if decline continues Vascular dementia 984536 004 F01.B0 baseline [facility]iagu [facility] supportive caremonito r for behaviors Diastolic heart failure 313601005 I50.32 contentres to 24-26 mg bidlasix 10 mg qam, of note decreased recentlymo nitor respirator y statusmoni tor bnp as ordered with slight increase in bnp 457-howeve r appears euvolemic today Anxiety 06013068 F41.1 with increased anxiety and agitation yesterdayart trazodone 12.5 mg po q 6 hours prn anixety x 14 daysstart urinalysis to rule out infection with new behaviorsp sych to eval [id number] Loni Love NP [facility] [address] [address] 08/08/2024 10:16:10 08/10/2024 15:21:43 Anxiety 16196259 F41.1 with increased anxiety and agitation last week, now resolvingconttra zodone 12.5 mg po q 6 hours prn anixety x 14 daysurinal ysis to rule out infection with new behaviors ordered but refused to give sample or straight cathwill hold off on abx for now as behaviors are resolved per nursingpsy ch to eval Adult fail ure to thrive syndrome 494353528 R62.7 continued weight [place] supplement sdietary to followreme catina 15mg qhs Vascular dementia 388095 004 F01.B0 baseline dementiagu ardianship in placeconti nue supportive caremonito r for behaviors [id number] Loni Love NP [facility] [address] [address] 08/25/2024 12:58:43 08/29/2024 13:08:29 Adult failure to thrive syndrome 514534531 R62.7 continued weight loss in general but up 1 lb in the last monthon supplement sdietary to followreme catina 15mg qhs Vascular dementia 346130 004 F01.B0 baseline dementiagu ardianship in placeconti nue supportive caremonito r for behaviors Diastolic heart failure 801880023 I50.32 overall appears euvolemic and NADcontent malvin 24-26 mg bid4/10 increase lasix from 10 mg qam to 20 mg, as bnp is doubled to 1090 on 08/24monitor respirator y statusmoni tor bnp as ordered Anemia [id number] D64.9 labs stable however h/h trending downpast Issues with macrocytic and microcytic anemia in past felt to have severe anemia without scope in hosp given three units PRBCs in hosp..on march 2024 admissionw ith hx of Fe def. anemia.Con tinueFe qd,/ increase omeprazole 40 mg from qd to bidheme test stools x3No s/s active bleeding.R emains on AC for now.Monito r CBC weekly for now Atrial fibrillation [id number] I48.19 controlled AF with RVF: started on amiodarone 200 mg bid for 28 days total, then daily.cont 08/25 increase lasix to 20 mg po qd for high bnpentrest o low dose po bid 24-26metop rolol 50 mg bidamiodar one 200 mg po qdeliquis 2.5 mg BID for AC.Monitor HR and bleeding risk. [id number] Loni Love NP [address] [phone] 08/31/2024 12:01:23 08/31/2024 12:17:03 Anemia [id number] D64.9 past Issues with macrocytic and microcytic [...] by Organization Details LastModified Time None Recorded Advance Directives Directive Y: Full Code-use dialysis, n utrition and hydration short term - appears to have been completed prior to assignment of guardian. Payers Encounter Date Sequence Insurance Name Policy Number Policy Linares Covered Member ID Linares Member ID Guarantor Name 07/30/2024 2 [place] [facility] Traci Morris [id number] Traci Morris 07/30/2024 1 [place] [employer] Traci Morris [id number] Traci Morris 08/05/2024 2 [place] Traci Sancho Wegrzyn [id number] Traci Wegrzyn 08/05/2024 1 [place] [employer] Traci Sancho Wegrzyn [id number] Traci Wegrzyn 08/08/2024 2 [place] Traci K Wegrzyn [id number] Traci Wegrzyn 08/08/2024 1 [place] [employer] Traci K Wegrzyn [id number] Traci Wegrzyn 08/25/2024 2 [place] Traci K Wegrzyn [id number] Traci Wegrzyn 08/25/2024 1 [place] [employer] Traci K Wegrzyn [id number] Traci Wegrzyn 08/31/2024 2 [place] Traci K Wegrzyn [id number] Traci Wegrzyn 08/31/2024 1 [place] [employer] Traci K Wegrzyn [id number] Trcai Wegrzyn Notes Date Note Type Note Provider Name and Address Organization Details Recorded Time 07/30/2024 text/html Patient is a 73 yo female LTC resident seen for MD visit. Patient with apparent 30 lb weight loss over past year. Baseline dementia currently in bed in NAD. PMH significant for a fib, dementia, anxiety, depression. Guardianship in place Damien Kay MD [address] [place] [address], [address], [place], [address], [facility] [employer] [facility] 07/30/2024 13:39:48 08/05/2024 text/html Pt is seen for a n acute visit. PMH includes HTN, AODM, Afib on Eliquis, CHF pEF, dementia, hx of CVA with left hemiparesis, anemia, depression/anxiety , chronic back pain, hyperaldosteronism , HLD, insomnia, falls, urinary retention and GERD. She is seen today for yelling out overnight and agitation per staff requesting something . This is not usually her baseline. On exam, Traci is calm and cooperative in NAD. She states she is doing well and has no concerns or needs and comfortable. When asked about the agitation last night she reports she doesn't remember. Vitals stable and no crackles or swelling to ankles. Recent labs reviewed and ordered. 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 She does not seems fluid overloaded and bnp 457. will monitor. She remains on remeron and supplements for weight loss but continues with with weight loss and decline, 97 lbs on last weight. MOLST: full code, guardian court appt in place Loni Love NP [address] [facility], [address], [place], [address], [facility] 08/05/2024 11:53:10 08/08/2024 text/html Pt is seen for a n acute rounding visit. PMH includes HTN, AODM, Afib on Eliquis, CHF pEF, dementia, hx of CVA with left hemiparesis, anemia, depression/anxiety , chronic back pain, hyperaldosteronism , HLD, insomnia, falls, urinary retention and GERD. She is seen without any recent yelling out or behaviors per nursing last week had a few episodes of yelling out to go home . trazodone and a urine was ordered, however has not needed trazodone since ordered. Urinalysis not obtained as she refused straight cath and nursing noted no foul odor to urine. Will dc urine order and monitor. On exam, Traci is calm and cooperative in NAD sleeping this am. She denies any complaints.MOLST: full code, guardian court appt in place Loni Love NP [address] [facility], [address], [place], [address], [facility] 08/08/2024 10:31:55 08/25/2024 text/html Pt is a 73 yo f, LTC resident seen for an acute rounding visit. PMH includes HTN, AODM, Afib on Eliquis, CHF pEF, dementia, hx of CVA with left hemiparesis, anemia, depression/anxiety , chronic back pain, hyperaldosteronism , HLD, insomnia, falls, urinary retention and GERD. Traci has been doing well. Her labs came back and bmp noted to bnp 1090. Otherwise stable with baseline anemia with slight decrease. On exam, pt is lying in bed in NAD. She denies any complaints. Breathing unlabored and NAD. No edema to ankles or overt fluid in lungs. She is comfortable lying flat on exam. Does appear slightly pale. Nursing denies any bloody stools lately or other complaints.MOLST: full code, guardian court appt in place Loni Love NP [address] [facility], [address], [place], [address], [facility] 08/25/2024 13:20:01 08/31/2024 text/html Pt is a 73 yo f, LTC resident seen for an acute visit. PMH includes HTN, AODM, Afib on Eliquis, CHF pEF, dementia, hx of CVA with left hemiparesis, anemia, depression/anxiety , chronic back pain, hyperaldosteronism , HLD, insomnia, falls, urinary retention and GERD. 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 [...] appt in place Loni Love NP [address] [facility], [address], [place], [address], [facility] 08/31/2024 12:17:01 OBGyn Episode No OBEpisode recorded.
--- OUTSIDE RECORDS SUMMARY | 2024-08-31 15:18 | XMS_ITS | Encounter Summary ---
Author Organization [facility] Address [address] [place] [phone] Care Team Providers Care Jointer Machine Operator Name Role Phone Damien Kay MD Primary Care Provider [phone] Encounter Details Date Type Department Care Team (Late st Contact Info) Description 04/11/2024 Lab Requisition [facility] - Main Lab [address] [facility] [place] [address] Damien Kay MD [address] [facility] [address] [place], [address] Type 2 diabetes mellitus without complications [...] AM EST) WBC 11.0(H) 4.8 - 10.8 K/mcL LAB HEMETOLOGY METHOD 04/11/2024 10:44 AM [facility] RBC 3.70(L) 3.80 - 4.80 M/mcL LAB HEMETOLOGY METHOD 04/11/2024 10:44 AM [facility] Hemoglobin 9.5(L) 11.5 - 16.0 g/dL LAB HEMETOLOGY METHOD 04/11/2024 10:44 AM [facility] Hematocrit 33.0(L) 35.0 - 47.0 % LAB HEMETOLOGY METHOD 04/11/2024 10:44 AM [facility] MCV 88.7 79.0 - 98.0 FL LAB HEMETOLOGY METHOD 04/11/2024 10:44 AM [facility] MCH 25.5(L) 27.0 - 32.0 pcg LAB HEMETOLOGY METHOD 04/11/2024 10:44 AM [facility] MCHC 28.8(L) 32.0 - 37.0 g/dL LAB HEMETOLOGY METHOD 04/11/2024 10:44 AM [facility] RDW 17.0(H) 11.0 - 15.0 % LAB HEMETOLOGY METHOD 04/11/2024 10:44 AM [facility] Platelets 469(H) 130 - 400 K/mcL LAB HEMETOLOGY METHOD 04/11/2024 10:44 AM [facility] MPV 11.2(H) 7.0 - 11.0 FL LAB HEMETOLOGY METHOD 04/11/2024 10:44 AM [facility] NRBC 0.0 <1.0 % LAB HEMETOLOGY METHOD 04/11/2024 10:44 AM [facility] NRBC Absolute 0.00 <0.10 K/mcL LAB HEMETOLOGY METHOD 04/11/2024 10:44 AM [facility] Neutrophils Relative 71.8 % LAB HEMETOLOGY METHOD 04/11/2024 10:44 AM [facility] Lymphocytes Relative 17.7 % LAB HEMETOLOGY METHOD 04/11/2024 10:44 AM [facility] Monocytes Relative 8.5 % LAB HEMETOLOGY METHOD 04/11/2024 10:44 AM [facility] Eosinophils Relative 0.9 % LAB HEMETOLOGY METHOD 04/11/2024 10:44 AM [facility] Basophils Relative 0.7 % LAB HEMETOLOGY METHOD 04/11/2024 10:44 AM [facility] Immature Granulocytes Relative 0.4 % LAB HEMETOLOGY METHOD 04/11/2024 10:44 AM [facility] Neutrophils Absolute 7.90(H) 1.50 - 7.00 K/mcL LAB HEMETOLOGY METHOD 04/11/2024 10:44 AM [facility] Lymphocytes Absolute 1.95 1.00 - 5.00 K/mcL LAB HEMETOLOGY METHOD 04/11/2024 10:44 AM [facility] Monocytes Absolute 0.94 0.20 - 1.00 K/mcL LAB HEMETOLOGY METHOD 04/11/2024 10:44 AM [facility] Eosinophils Absolute 0.10 0.00 - 0.50 K/mcL LAB HEMETOLOGY METHOD 04/11/2024 10:44 AM [facility] Basophils Absolute 0.08 0.00 - 0.20 K/mcL LAB HEMETOLOGY METHOD 04/11/2024 10:44 AM [facility] Immature Granulocytes Absolute 0.04(H) 0.00 - 0.03 K/mcL LAB HEMETOLOGY METHOD 04/11/2024 10:44 AM [facility] Blood Venous blood specimen / Unknown Venipuncture / Unknown 04/11/2024 6:56 AM EST 04/11/2024 9:41 AM EST us Damien Kay MD LAB BLOOD ORDERABLES Final Resul t [facility] [address] [place] [address], [place] [phone] * (ABNORMAL) Comprehensive metabolic panel (04/11/2024 6:56 AM EST) Sodium 144 133 - 145 mmol/L LAB CHEMISTRY METHOD 04/11/2024 12:18 PM [facility] Potassium 3.9 3.5 - 5.5 mmol/L LAB CHEMISTRY METHOD 04/11/2024 12:18 PM [facility] Chloride 109 96 - 110 mmol/L LAB CHEMISTRY METHOD 04/11/2024 12:18 PM [facility] CO2 26 21 - 32 mmol/L LAB CHEMISTRY METHOD 04/11/2024 12:18 PM [facility] Anion Gap 9 3 - 11 LAB CHEMISTRY METHOD 04/11/2024 12:18 PM [facility] Glucose 107(H) 70 - 100 mg/dL LAB CHEMISTRY METHOD 04/11/2024 12:18 PM [facility] BUN 19 5 - 25 mg/dL LAB CHEMISTRY METHOD 04/11/2024 12:18 PM [facility] Creatinine 1.13(H) 0.50 - 1.10 mg/dL LAB CHEMISTRY METHOD 04/11/2024 12:18 PM [facility] eGFR 52(L) >=60 mL/min/1. 73m2 LAB CHEMISTRY METHOD 04/11/2024 12:18 PM [facility] Comment:Calculation based on the??Chronic Kidney Disease Epidemiology Collaboration (CKD-EPI) equation refit??without adjustment for race. BUN/Creatinine Ratio 16.8 LAB CHEMISTRY METHOD 04/11/2024 12:18 PM [facility] Calcium 9.5 8.5 - 10.5 mg/dL LAB CHEMISTRY METHOD 04/11/2024 12:18 PM [facility] AST (SGOT) 32 10 - 42 unit/L LAB CHEMISTRY METHOD 04/11/2024 12:18 PM [facility] ALT (SGPT) 25 10 - 60 unit/L LAB CHEMISTRY METHOD 04/11/2024 12:18 PM [facility] Alkaline Phosphatase 72 42 - 121 unit/L LAB CHEMISTRY METHOD 04/11/2024 12:18 PM [facility] Total Protein 5.8(L) 6.0 - 8.0 g/dL LAB CHEMISTRY METHOD 04/11/2024 12:18 PM [facility] Albumin 2.7(L) 3.2 - 5.0 g/dL LAB CHEMISTRY METHOD 04/11/2024 12:18 PM [facility] Total Bilirubin 0.6 0.0 - 1.4 mg/dL LAB CHEMISTRY METHOD 04/11/2024 12:18 PM [facility] Blood Venous blood specimen / Unknown Venipuncture / Unknown 04/11/2024 6:56 AM EST 04/11/2024 9:41 AM EST us Damien Kay MD LAB BLOOD ORDERABLES Final Resul t [facility] [address] [place] [address], documented in this encounter Visit Diagnoses Diagnosis Type 2 diabetes mellitus without complications (CMS/HCC V24, CMS/HCC V28) documented in this encounter Care Teams Jointer Machine Operator Relationship Specialty Start Date End Date Damien Kay MD [address] [place] [address], [phone] PCP - General Family Medicine 07/05/24 documented as of this encounter
--- OUTSIDE RECORDS SUMMARY | 2024-08-31 15:18 | XMS_ITS | Encounter Summary ---
Author Organization [facility] Address [address] [place] [phone] Care Team Providers Care Repair Specialist Name Role Phone Damien Kay MD Primary Care Provider [phone] Encounter Details Date Type Department Care Team (Late st Contact Info) Description 05/24/2024 Lab Requisition [facility] - Main Lab [address] [facility] [address] [place] [address] Damien Kay MD [address] [facility] [address] [place], [address] Unspecified atrial fibrillation (CMS/HCC V24, CMS/HCC [...] mmol/L LAB CHEMISTRY METHOD 05/25/2024 11:53 AM [facility] Potassium 4.2 3.5 - 5.5 mmol/L LAB CHEMISTRY METHOD 05/25/2024 11:53 AM [facility] Chloride 106 96 - 110 mmol/L LAB CHEMISTRY METHOD 05/25/2024 11:53 AM [facility] CO2 26 21 - 32 mmol/L LAB CHEMISTRY METHOD 05/25/2024 11:53 AM [facility] Anion Gap 7 3 - 11 LAB CHEMISTRY METHOD 05/25/2024 11:53 AM [facility] Glucose 89 70 - 100 mg/dL LAB CHEMISTRY METHOD 05/25/2024 11:53 AM [facility] BUN 43(H) 5 - 25 mg/dL LAB CHEMISTRY METHOD 05/25/2024 11:53 AM [facility] Creatinine 2.17(H) 0.50 - 1.10 mg/dL LAB CHEMISTRY METHOD 05/25/2024 11:53 AM [facility] eGFR 24(L) >=60 mL/min/1. 73m2 LAB CHEMISTRY METHOD 05/25/2024 11:53 AM [facility] Comment:Calculation based on the??Chronic Kidney Disease Epidemiology Collaboration (CKD-EPI) equation refit??without adjustment for race. BUN/Creatinine Ratio 19.8 LAB CHEMISTRY METHOD 05/25/2024 11:53 AM [facility] Calcium 8.5 8.5 - 10.5 mg/dL LAB CHEMISTRY METHOD 05/25/2024 11:53 AM [facility] Blood Venous blood specimen / Unknown Venipuncture / Unknown 05/25/2024 6:42 AM EST 05/25/2024 10:15 AM EST Damien Kay MD LAB BLOOD ORDERABLES Final Resul t [facility] [address] [place] [address], * (ABNORMAL) Complete blood count (05/25/2024 6:42 AM EST) WBC 9.5 4.8 - 10.8 K/mcL LAB HEMETOLOGY METHOD 05/25/2024 11:22 AM [facility] RBC 3.70(L) 3.80 - 4.80 M/mcL LAB HEMETOLOGY METHOD 05/25/2024 11:22 AM [facility] Hemoglobin 9.3(L) 11.5 - 16.0 g/dL LAB HEMETOLOGY METHOD 05/25/2024 11:22 AM [facility] Hematocrit 30.7(L) 35.0 - 47.0 % LAB HEMETOLOGY METHOD 05/25/2024 11:22 AM [facility] MCV 84.1 79.0 - 98.0 FL LAB HEMETOLOGY METHOD 05/25/2024 11:22 AM [facility] MCH 25.5(L) 27.0 - 32.0 pcg LAB HEMETOLOGY METHOD 05/25/2024 11:22 AM [facility] MCHC 30.3(L) 32.0 - 37.0 g/dL LAB HEMETOLOGY METHOD 05/25/2024 11:22 AM [facility] RDW 19.8(H) 11.0 - 15.0 % LAB HEMETOLOGY METHOD 05/25/2024 11:22 AM [facility] Platelets 496(H) 130 - 400 K/mcL LAB HEMETOLOGY METHOD 05/25/2024 11:22 AM [facility] MPV 11.2(H) 7.0 - 11.0 FL LAB HEMETOLOGY METHOD 05/25/2024 11:[address] [facility] NRBC 0.0 <1.0 % LAB HEMETOLOGY METHOD 05/25/2024 11:[address] [facility] NRBC Absolute 0.00 <0.10 K/mcL LAB HEMETOLOGY METHOD 05/25/2024 11:[address] [facility] Blood Venous blood specimen / Unknown Venipuncture / Unknown 05/25/2024 6:42 AM EST 05/25/2024 10:15 AM EST us Damien Kay MD LAB BLOOD ORDERABLES Final Resul t [facility] [address] [place] [address], documented in this encounter Visit Diagnoses Diagnosis Unspecified atrial fibrillation (CMS/HCC V24, CMS/HCC V28) Type 2 diabetes mellitus without complications (CMS/HCC V24, CMS/HCC V28) Heart failure, unspecified (CMS/HCC V24, CMS/HCC V28) Heart failure, unspecified documented in this encounter Care Teams Repair Specialist Relationship Specialty Start Date End Date Damien Kay MD [address] [place] [address] [address] [place], [phone] PCP - General Family Medicine 07/05/24 documented as of this encounter
--- OUTSIDE RECORDS SUMMARY | 2024-08-31 15:18 | XMS_ITS | Encounter Summary ---
Author Organization [facility] Address [address] [place] [phone] Care Team Providers Care Retail Management Keyholder Name Role Phone Damien Kay MD Primary Care Provider [phone] Encounter Details Date Type Department Care Team (Late st Contact Info) Description 04/23/2024 Lab Requisition [facility] - Main Lab [address] [facility] [employer] [place] [address] Damien Kay MD [address] [place] [address] [address] [facility] [address] Type 2 diabetes mellitus without [...] V28) documented in this encounter Care Teams Retail Management Keyholder Relationship Specialty Start Date End Date Damien Kay MD [address] [place] [address] [address] [place], [phone] PCP - General Family Medicine 07/05/24 documented as of this encounter
--- OUTSIDE RECORDS SUMMARY | 2024-08-31 15:18 | XMS_ITS | Encounter Summary ---
Author Organization [facility] Address [id number] [place] [phone] Care Team Providers Care Piping Design Specialist Name Role Phone Damien Kay MD Primary Care Provider [phone] Encounter Details Date Type Department Care Team (Latest Contact Info) Description 07/05/2024 Lab Requisition [facility] - Main Lab 299 [facility] [place] [address] Damien Kay MD 38 [facility] [address], [phone] Heart failure, unspecified (CMS/HCC V24, CMS/HCC V28); Sepsis, unspecified organism (CMS/HCC V24, CMS/HCC V28); Hyperlipidemia, unspecified; Type 2 diabetes mellitus without complications (CMS/HCC V24, CMS/HCC V28); Other cerebrovascular disease Social History Tobacco Use [...] Diagnosis Comments CBC WITH AUTO DIFFERENTIAL Routine 07/06/2024 7:59 AM EST Heart failure, unspecified (CMS/HCC) Sepsis, unspecified organism (CMS/HCC) Hyperlipidemia, unspecified Type 2 diabetes mellitus without complications (CMS/HCC) Other cerebrovascular disease COMPLETE BLOOD COUNT Routine 07/06/2024 7:59 AM EST Heart failure, unspecified (CMS/HCC) Sepsis, unspecified organism (CMS/HCC) Hyperlipidemia, unspecified Type 2 diabetes mellitus without complications (CMS/HCC) Other cerebrovascular disease CBC AND DIFFERENTIAL Routine 07/06/2024 7:59 AM EST Heart failure, unspecified (CMS/HCC) Sepsis, unspecified organism (CMS/HCC) Hyperlipidemia, unspecified Type 2 diabetes mellitus without complications (CMS/HCC) Other cerebrovascular disease B-TYPE NATRIURETIC PEPTIDE Routine 07/06/2024 7:59 AM EST Heart failure, unspecified (CMS/HCC) Sepsis, unspecified organism (CMS/HCC) Hyperlipidemia, unspecified Type 2 diabetes mellitus without complications (CMS/HCC) Other cerebrovascular disease BASIC METABOLIC PANEL Routine 07/06/2024 7:59 AM EST Heart failure, unspecified (CMS/HCC) Sepsis, unspecified organism (CMS/HCC) Hyperlipidemia, unspecified Type 2 diabetes mellitus without complications (CMS/HCC) Other cerebrovascular disease documented in this encounter Results * (ABNORMAL) CBC auto differential (07/06/2024 7:59 AM EST) Pathologist [facility] WBC 8.6 4.8 - 10.8 K/mcL LAB HEMETOLOGY METHOD 07/06/2024 1:09 PM [facility] RBC 3.00(L) 3.80 - 4.80 M/mcL LAB HEMETOLOGY METHOD 07/06/2024 1:09 PM [facility] Hemoglobin 8.6(L) 11.5 - 16.0 g/dL LAB HEMETOLOGY METHOD 07/06/2024 1:09 PM [facility] Hematocrit 28.3(L) 35.0 - 47.0 % LAB HEMETOLOGY METHOD 07/06/2024 1:09 PM [facility] MCV 95.6 79.0 - 98.0 FL LAB HEMETOLOGY METHOD 07/06/2024 1:09 PM [facility] MCH 29.1 27.0 - 32.0 pcg LAB HEMETOLOGY METHOD 07/06/2024 1:09 PM [facility] MCHC 30.4(L) 32.0 - 37.0 g/dL LAB HEMETOLOGY METHOD 07/06/2024 1:09 PM [facility] RDW 24.3(H) 11.0 - 15.0 % LAB HEMETOLOGY METHOD 07/06/2024 1:09 PM [facility] Platelets 588(H) 130 - 400 K/mcL LAB HEMETOLOGY METHOD 07/06/2024 1:09 PM [facility] MPV 11.2(H) 7.0 - 11.0 FL LAB HEMETOLOGY METHOD 07/06/2024 1:09 PM [facility] NRBC 0.0 <1.0 % LAB HEMETOLOGY METHOD 07/06/2024 1:09 PM [facility] NRBC Absolute 0.00 <0.10 K/mcL LAB HEMETOLOGY METHOD 07/06/2024 1:09 PM [facility] Neutrophils Relative 64.9 % LAB HEMETOLOGY METHOD 07/06/2024 1:09 PM [facility] Lymphocytes Relative 21.9 % LAB HEMETOLOGY METHOD 07/06/2024 1:09 PM [facility] Monocytes Relative 9.6 % LAB HEMETOLOGY METHOD 07/06/2024 1:09 PM [facility] Eosinophils Relative 1.6 % LAB HEMETOLOGY METHOD 07/06/2024 1:09 PM [facility] Basophils Relative 1.5 % LAB HEMETOLOGY METHOD 07/06/2024 1:09 PM [facility] Immature Granulocytes Relative 0.5 % LAB HEMETOLOGY METHOD 07/06/2024 1:09 PM [facility] Neutrophils Absolute 5.61 1.50 - 7.00 K/mcL LAB HEMETOLOGY METHOD 07/06/2024 1:09 PM [facility] Lymphocytes Absolute 1.89 1.00 - 5.00 K/mcL LAB HEMETOLOGY METHOD 07/06/2024 1:09 PM EST [facility] Monocytes Absolute 0.83 0.20 - 1.00 K/mcL LAB HEMETOLOGY METHOD 07/06/2024 1:09 PM EST [facility] Eosinophils Absolute 0.14 0.00 - 0.50 K/[facility] LAB HEMETOLOGY METHOD 07/06/2024 1:09 PM EST [facility] Basophils Absolute 0.13 0.00 - 0.20 K/[facility] LAB HEMETOLOGY METHOD 07/06/2024 1:09 PM EST [facility] Immature Granulocytes Absolute 0.04(H) 0.00 - 0.03 K/[facility] LAB HEMETOLOGY METHOD 07/06/2024 1:09 PM [facility] Blood Venous blood specimen / Unknown Venipuncture / Unknown 07/06/2024 7:59 AM EST 07/06/2024 11:28 AM EST us Damien Kay MD LAB BLOOD ORDERABLES Final Resul t Performing Organization Address City/[facility] [address]/ZIP Co de Phone Number [facility] [address] [place] [address], * (ABNORMAL) B-type natriuretic peptide (07/06/2024 7:59 AM EST) BNP 567(H) <=100 pcg/mL LAB CHEMISTRY METHOD 07/06/2024 1:01 PM EST [facility] Blood Venous blood specimen / Unknown Venipuncture / Unknown 07/06/2024 7:59 AM EST 07/06/2024 11:28 AM EST Damien Kay MD LAB BLOOD ORDERABLES Final Resul t [facility] [address] [place] [address], [place] [phone] * Basic metabolic panel (07/06/2024 7:59 AM EST) Sodium 144 133 - 145 mmol/L LAB CHEMISTRY METHOD 07/06/2024 12:25 PM [facility] Potassium 3.5 3.5 - 5.5 mmol/L LAB CHEMISTRY METHOD 07/06/2024 12:25 PM [facility] Chloride 109 96 - 110 mmol/L LAB CHEMISTRY METHOD 07/06/2024 12:25 PM [facility] CO2 25 21 - 32 mmol/L LAB CHEMISTRY METHOD 07/06/2024 12:25 PM [facility] Anion Gap 10 3 - 11 LAB CHEMISTRY METHOD 07/06/2024 12:25 PM [facility] Glucose 82 70 - 100 mg/dL LAB CHEMISTRY METHOD 07/06/2024 12:25 PM [facility] BUN 12 5 - 25 mg/dL LAB CHEMISTRY METHOD 07/06/2024 12:25 PM [facility] Creatinine 0.77 0.50 - 1.10 mg/dL LAB CHEMISTRY METHOD 07/06/2024 12:25 PM [facility] eGFR 82 >=60 mL/min/1. 73m2 LAB CHEMISTRY METHOD 07/06/2024 12:25 PM [facility] Comment:Calculation based on the??Chronic Kidney Disease Epidemiology Collaboration (CKD-EPI) equation refit??without adjustment for race. BUN/Creatinine Ratio 15.6 LAB CHEMISTRY METHOD 07/06/2024 12:25 PM [facility] Calcium 9.1 8.5 - 10.5 mg/dL LAB CHEMISTRY METHOD 07/06/2024 12:25 PM [facility] Blood Venous blood specimen / Unknown Venipuncture / Unknown 07/06/2024 7:59 AM EST 07/06/2024 11:28 AM EST us Damien Kay MD LAB BLOOD ORDERABLES Final Resul t [facility] [address] [place] [address], [place] [phone] * (ABNORMAL) Complete blood count (07/06/2024 7:59 AM EST) WBC 8.6 4.8 - 10.8 K/mcL LAB HEMETOLOGY METHOD 07/06/2024 1:09 PM [facility] RBC 3.00(L) 3.80 - 4.80 M/mcL LAB HEMETOLOGY METHOD 07/06/2024 1:09 PM [facility] Hemoglobin 8.6(L) 11.5 - 16.0 g/dL LAB HEMETOLOGY METHOD 07/06/2024 1:09 PM [facility] Hematocrit 28.3(L) 35.0 - 47.0 % LAB HEMETOLOGY METHOD 07/06/2024 1:09 PM [facility] MCV 95.6 79.0 - 98.0 FL LAB HEMETOLOGY METHOD 07/06/2024 1:09 PM [facility] MCH 29.1 27.0 - 32.0 pcg LAB HEMETOLOGY METHOD 07/06/2024 1:09 PM [facility] MCHC 30.4(L) 32.0 - 37.0 g/dL LAB HEMETOLOGY METHOD 07/06/2024 1:09 PM [facility] RDW 24.3(H) 11.0 - 15.0 % LAB HEMETOLOGY METHOD 07/06/2024 1:09 PM [facility] Platelets 588(H) 130 - 400 K/mcL LAB HEMETOLOGY METHOD 07/06/2024 1:09 PM [facility] MPV 11.2(H) 7.0 - 11.0 FL LAB HEMETOLOGY METHOD 07/06/2024 1:09 PM EST [facility] NRBC 0.0 <1.0 % LAB HEMETOLOGY METHOD 07/06/2024 1:09 PM EST [facility] NRBC Absolute 0.00 <0.10 K/mcL LAB HEMETOLOGY METHOD 07/06/2024 1:09 PM EST [facility] Blood Venous blood specimen / Unknown Venipuncture / Unknown 07/06/2024 7:59 AM EST 07/06/2024 11:28 AM EST us Damien Kay MD LAB BLOOD ORDERABLES Final Resul t [facility] [address] [place] [address], documented in this encounter Visit Diagnoses Diagnosis Heart failure, unspecified (CMS/HCC V24, CMS/HCC V28) Heart failure, unspecified Sepsis, unspecified organism (CMS/HCC V24, CMS/HCC V28) Hyperlipidemia, unspecified Type 2 diabetes mellitus without complications (CMS/HCC V24, CMS/HCC V28) Other cerebrovascular disease documented in this encounter Care Teams Piping Design Specialist Relationship Specialty Start Date End Date Damien Kay MD [address] [place] [phone] PCP - General Family Medicine 07/05/24 documented as of this encounter
--- OUTSIDE RECORDS SUMMARY | 2024-08-31 15:18 | XMS_ITS | Encounter Summary ---
Author Organization [facility] Address [address] [place] [phone] Care Team Providers Care Endless Steamer Tender Name Role Phone Damien Kya MD Primary Care Provider Encounter Details Date Type Department Care Team (Latest Contact Info) Description 06/28/2024 Lab Requisition [facility] - Main Lab [address] [facility] [place] [address] Damien Kay MD 38 [facility] [address] [place], [phone] Heart failure, unspecified (CMS/HCC V24, CMS/HCC [...] CBC auto differential (06/29/2024 6:37 AM EST) [facility] WBC 9.5 4.8 - 10.8 K/mcL LAB HEMETOLOGY METHOD 06/29/2024 11:49 AM [facility] RBC 2.90(L) 3.80 - 4.80 M/mcL LAB HEMETOLOGY METHOD 06/29/2024 11:49 AM [facility] Hemoglobin 8.1(L) 11.5 - 16.0 g/dL LAB HEMETOLOGY METHOD 06/29/2024 11:49 AM [facility] Hematocrit 26.9(L) 35.0 - 47.0 % LAB HEMETOLOGY METHOD 06/29/2024 11:49 AM [facility] MCV 92.1 79.0 - 98.0 FL LAB HEMETOLOGY METHOD 06/29/2024 11:49 AM [facility] MCH 27.7 27.0 - 32.0 pcg LAB HEMETOLOGY METHOD 06/29/2024 11:49 AM [facility] MCHC 30.1(L) 32.0 - 37.0 g/dL LAB HEMETOLOGY METHOD 06/29/2024 11:49 AM [facility] RDW 26.9(H) 11.0 - 15.0 % LAB HEMETOLOGY METHOD 06/29/2024 11:49 AM [facility] Platelets 464(H) 130 - 400 K/mcL LAB HEMETOLOGY METHOD 06/29/2024 11:49 AM [facility] MPV 10.8 7.0 - 11.0 FL LAB HEMETOLOGY METHOD 06/29/2024 11:49 AM [facility] NRBC 0.0 <1.0 % LAB HEMETOLOGY METHOD 06/29/2024 11:49 AM [facility] NRBC Absolute 0.00 <0.10 K/mcL LAB HEMETOLOGY METHOD 06/29/2024 11:49 AM [facility] Neutrophils Relative 66.8 % LAB HEMETOLOGY METHOD 06/29/2024 11:49 AM [facility] Lymphocytes Relative 20.1 % LAB HEMETOLOGY METHOD 06/29/2024 11:49 AM [facility] Monocytes Relative 10.7 % LAB HEMETOLOGY METHOD 06/29/2024 11:49 AM [facility] Eosinophils Relative 0.8 % LAB HEMETOLOGY METHOD 06/29/2024 11:49 AM [facility] Basophils Relative 1.0 % LAB HEMETOLOGY METHOD 06/29/2024 11:49 AM [facility] Immature Granulocytes Relative 0.6 % LAB HEMETOLOGY METHOD 06/29/2024 11:49 AM [facility] Neutrophils Absolute 6.35 1.50 - 7.00 K/mcL LAB HEMETOLOGY METHOD 06/29/2024 11:49 AM [facility] Lymphocytes Absolute 1.92 1.00 - 5.00 K/mcL LAB HEMETOLOGY METHOD 06/29/2024 11:49 AM EST [facility] Monocytes Absolute 1.02(H) 0.20 - 1.00 K/mcL LAB HEMETOLOGY METHOD 06/29/2024 11:49 AM EST [facility] Eosinophils Absolute 0.08 0.00 - 0.50 K/[facility] LAB HEMETOLOGY METHOD 06/29/2024 11:49 AM EST [facility] Basophils Absolute 0.10 0.00 - 0.20 K/[facility] LAB HEMETOLOGY METHOD 06/29/2024 11:49 AM EST [facility] Immature Granulocytes Absolute 0.06(H) 0.00 - 0.03 K/[facility] LAB HEMETOLOGY METHOD 06/29/2024 11:49 AM EST [facility] Blood Venous blood specimen / Unknown Venipuncture / Unknown 06/29/2024 6:37 AM EST 06/29/2024 10:55 AM EST us Damien Kay MD LAB BLOOD ORDERABLES Final Resul t Performing Organization Address City/[facility]/ZIP Co de Phone Number [facility] [address] [place] [address], * (ABNORMAL) B-type natriuretic peptide (06/29/2024 6:37 AM EST) BNP 328(H) <=100 pcg/mL LAB CHEMISTRY METHOD 06/29/2024 12:01 PM EST [facility] Blood Venous blood specimen / Unknown Venipuncture / Unknown 06/29/2024 6:37 AM EST 06/29/2024 10:55 AM EST us Damien Kay MD LAB BLOOD ORDERABLES Final Resul t [facility] [address] [place] [address], [place] [phone] * (ABNORMAL) Basic metabolic panel (06/29/2024 6:37 AM EST) Sodium 141 133 - 145 mmol/L LAB CHEMISTRY METHOD 06/29/2024 11:57 AM [facility] Potassium 4.7 3.5 - 5.5 mmol/L LAB CHEMISTRY METHOD 06/29/2024 11:57 AM [facility] Chloride 109 96 - 110 mmol/L LAB CHEMISTRY METHOD 06/29/2024 11:57 AM [facility] CO2 26 21 - 32 mmol/L LAB CHEMISTRY METHOD 06/29/2024 11:57 AM [facility] Anion Gap 6 3 - 11 LAB CHEMISTRY METHOD 06/29/2024 11:57 AM [facility] Glucose 83 70 - 100 mg/dL LAB CHEMISTRY METHOD 06/29/2024 11:57 AM [facility] BUN 14 5 - 25 mg/dL LAB CHEMISTRY METHOD 06/29/2024 11:57 AM [facility] Creatinine 1.02 0.50 - 1.10 mg/dL LAB CHEMISTRY METHOD 06/29/2024 11:57 AM [facility] eGFR 59(L) >=60 mL/min/1. 73m2 LAB CHEMISTRY METHOD 06/29/2024 11:57 AM [facility] Comment:Calculation based on the??Chronic Kidney Disease Epidemiology Collaboration (CKD-EPI) equation refit??without adjustment for race. BUN/Creatinine Ratio 13.7 LAB CHEMISTRY METHOD 06/29/2024 11:57 AM [facility] Calcium 8.8 8.5 - 10.5 mg/dL LAB CHEMISTRY METHOD 06/29/2024 11:57 AM [facility] Blood Venous blood specimen / Unknown Venipuncture / Unknown 06/29/2024 6:37 AM EST 06/29/2024 10:55 AM EST us Damien Kay MD LAB BLOOD ORDERABLES Final Resul t [facility] [address] [place] [address], [place] [phone] * (ABNORMAL) Complete blood count (06/29/2024 6:37 AM EST) WBC 9.5 4.8 - 10.8 K/mcL LAB HEMETOLOGY METHOD 06/29/2024 11:49 AM [facility] RBC 2.90(L) 3.80 - 4.80 M/mcL LAB HEMETOLOGY METHOD 06/29/2024 11:49 AM [facility] Hemoglobin 8.1(L) 11.5 - 16.0 g/dL LAB HEMETOLOGY METHOD 06/29/2024 11:49 AM [facility] Hematocrit 26.9(L) 35.0 - 47.0 % LAB HEMETOLOGY METHOD 06/29/2024 11:49 AM [facility] MCV 92.1 79.0 - 98.0 FL LAB HEMETOLOGY METHOD 06/29/2024 11:49 AM [facility] MCH 27.7 27.0 - 32.0 pcg LAB HEMETOLOGY METHOD 06/29/2024 11:49 AM [facility] MCHC 30.1(L) 32.0 - 37.0 g/dL LAB HEMETOLOGY METHOD 06/29/2024 11:49 AM [facility] RDW 26.9(H) 11.0 - 15.0 % LAB HEMETOLOGY METHOD 06/29/2024 11:49 AM [facility] Platelets 464(H) 130 - 400 K/mcL LAB HEMETOLOGY METHOD 06/29/2024 11:49 AM [facility] MPV 10.8 7.0 - 11.0 FL LAB HEMETOLOGY METHOD 06/29/2024 11:49 AM EST [facility] NRBC 0.0 <1.0 % LAB [facility] METHOD 06/29/2024 11:49 AM EST [facility] NRBC Absolute 0.00 <0.10 K/mcL LAB HEMETOLOG METHOD 06/29/2024 11:49 AM EST [facility] Blood Venous blood specimen / Unknown Venipuncture / Unknown 06/29/2024 6:37 AM EST 06/29/2024 10:55 AM EST us Damien Kay MD LAB BLOOD ORDERABLES Final Resul t [facility] [address] [place] [address], documented in this encounter Visit Diagnoses Diagnosis Heart failure, unspecified (CMS/HCC V24, CMS/HCC V28) Heart failure, unspecified Sepsis, unspecified organism (CMS/HCC V24, CMS/HCC V28) Hyperlipidemia, unspecified Type 2 diabetes mellitus without complications (CMS/HCC V24, CMS/HCC V28) Other cerebrovascular disease documented in this encounter Care Teams Endless Steamer Tender Relationship Specialty Start Date End Date Damien Kay MD [address] [place] [address], [phone] PCP - General Family Medicine 07/05/24 documented as of this encounter
--- OUTSIDE RECORDS SUMMARY | 2024-08-31 15:18 | XMS_ITS | Encounter Summary ---
Author Organization [facility] Address [id number] [place] [id number] Care Team Providers Care Video Production Specialist Name Role Phone Damien Kay MD Primary Care Provider [phone] Encounter Details Date Type Department Care Team (Late st Contact Info) Description 08/16/[address] [facility] Lab [address] [facility] [place] [address] Damien Kay MD [address] [facility] [address] [place], [phone] Type 2 diabetes mellitus without complications [...] Procedure Name Priority Date/Time Associated Diagnosis Comments LIPID PANEL WITH REFLEX TO DIRECT LDL Routine 08/17/2024 8:38 AM EDT Type 2 diabetes mellitus without complications Unspecified atrial fibrillation (CMS/HCC) Anemia, unspecified COMPLETE BLOOD COUNT Routine 08/17/2024 8:38 AM EDT Type 2 diabetes mellitus without complications Unspecified atrial fibrillation (CMS/HCC) Anemia, unspecified B-TYPE NATRIURETIC PEPTIDE Routine 08/17/2024 8:38 AM EDT Type 2 diabetes mellitus without complications Unspecified atrial fibrillation (CMS/HCC) Anemia, unspecified HEMOGLOBIN A1C Routine 08/17/2024 8:38 AM EDT Type 2 diabetes mellitus without complications Unspecified atrial fibrillation (CMS/HCC) Anemia, unspecified COMPREHENSIVE METABOLIC PANEL Routine 08/17/2024 8:38 AM EDT Type 2 diabetes mellitus without complications Unspecified atrial fibrillation (CMS/HCC) Anemia, unspecified documented in this encounter Results * (ABNORMAL) B-type natriuretic peptide (08/17/2024 8:38 AM EDT) Pathologist [facility] BNP 1,015(H) <=100 pcg/mL LAB CHEMISTRY METHOD 08/17/2024 1:[address] [facility] Blood Venous blood specimen / Unknown Venipuncture / Unknown 08/17/2024 8:38 AM EDT 08/17/2024 12:11 PM EDT us Damien Kay MD LAB BLOOD ORDERABLES Final Resul t [facility] [address] [place] [address], [place] [phone] * (ABNORMAL) Complete blood count (08/17/2024 8:38 AM EDT) [facility] WBC 5.7 4.8 - 10.8 K/mcL LAB HEMETOLOGY METHOD 08/17/2024 12:[address] [facility] RBC 2.50(L) 3.80 - 4.80 M/mcL LAB HEMETOLOGY METHOD 08/17/2024 12:[address] [facility] Hemoglobin 7.5(L) 11.5 - 16.0 g/dL LAB HEMETOLOGY METHOD 08/17/2024 12:[address] [facility] Hematocrit 23.9(L) 35.0 - 47.0 % LAB HEMETOLOGY METHOD 08/17/2024 12:42 PM [facility] MCV 96.0 79.0 - 98.0 FL LAB HEMETOLOGY METHOD 08/17/2024 12:42 PM [facility] MCH 30.1 27.0 - 32.0 pcg LAB HEMETOLOGY METHOD 08/17/2024 12:42 PM [facility] MCHC 31.4(L) 32.0 - 37.0 g/dL LAB HEMETOLOGY METHOD 08/17/2024 12:42 PM [facility] RDW 14.9 11.0 - 15.0 % LAB HEMETOLOGY METHOD 08/17/2024 12:42 PM [facility] Platelets 588(H) 130 - 400 K/mcL LAB HEMETOLOGY METHOD 08/17/2024 12:42 PM [facility] MPV 10.5 7.0 - 11.0 FL LAB HEMETOLOGY METHOD 08/17/2024 12:42 PM [facility] NRBC 0.0 <1.0 % LAB HEMETOLOGY METHOD 08/17/2024 12:42 PM [facility] NRBC Absolute 0.00 <0.10 K/mcL LAB HEMETOLOGY METHOD 08/17/2024 12:42 PM [facility] Blood Venous blood specimen / Unknown Venipuncture / Unknown 08/17/2024 8:38 AM EDT 08/17/2024 12:11 PM EDT us Damien Kay MD LAB BLOOD ORDERABLES Final Resul t [facility] [address] [place] [address], [place] [phone] * Lipid panel with reflex to direct LDL (08/17/2024 8:38 AM EDT) [facility] Signature Cholesterol 118 0 - 200 mg/dL LAB CHEMISTRY METHOD 08/17/2024 12:[address] [facility] Triglycerides 90 0 - 150 mg/dL LAB CHEMISTRY METHOD 08/17/2024 12:[address] [facility] HDL 54 >=40 mg/dL LAB CHEMISTRY METHOD 08/17/2024 12:[address] [facility] LDL Calculated 46 0 - 100 mg/dL LAB CHEMISTRY METHOD 08/17/2024 12:[address] [facility] VLDL Cholesterol Moi 18 mg/dL LAB CHEMISTRY METHOD 08/17/2024 12:[address] [facility] Non HDL Chol. (LDL+VLDL) 64 <145 mg/dL LAB CHEMISTRY METHOD 08/17/2024 12:[address] [facility] Chol/HDL Ratio 2.2 0.0 - 4.4 LAB CHEMISTRY METHOD 08/17/2024 12:[address] [facility] Blood Venous blood specimen / Unknown Venipuncture / Unknown 08/17/2024 8:38 AM EDT 08/17/2024 12:11 PM EDT us Damien Kay MD LAB BLOOD ORDERABLES Final Resul t [facility] [address] [place] [address], * (ABNORMAL) Comprehensive metabolic panel (08/17/2024 8:38 AM EDT) Sodium 139 133 - 145 mmol/L LAB CHEMISTRY METHOD 08/17/2024 12:[address] [facility] Potassium 4.2 3.5 - 5.5 mmol/L LAB CHEMISTRY METHOD 08/17/2024 12:[address] [facility] Chloride 107 96 - 110 mmol/L LAB CHEMISTRY METHOD 08/17/2024 12:[address] [facility] CO2 25 21 - 32 mmol/L LAB CHEMISTRY METHOD 08/17/2024 12:44 PM [facility] Anion Gap 7 3 - 11 LAB CHEMISTRY METHOD 08/17/2024 12:44 PM [facility] Glucose 145(H) 70 - 100 mg/dL LAB CHEMISTRY METHOD 08/17/2024 12:44 PM [facility] BUN 15 5 - 25 mg/dL LAB CHEMISTRY METHOD 08/17/2024 12:44 PM [facility] Creatinine 0.97 0.50 - 1.10 mg/dL LAB CHEMISTRY METHOD 08/17/2024 12:44 PM [facility] eGFR 62 >=60 mL/min/1. 73m2 LAB CHEMISTRY METHOD 08/17/2024 12:44 PM [facility] Comment:Calculation based on the??Chronic Kidney Disease Epidemiology Collaboration (CKD-EPI) equation refit??without adjustment for race. BUN/Creatinine Ratio 15.5 LAB CHEMISTRY METHOD 08/17/2024 12:44 PM [facility] Calcium 8.5 8.5 - 10.5 mg/dL LAB CHEMISTRY METHOD 08/17/2024 12:44 PM [facility] AST (SGOT) 33 10 - 42 unit/L LAB CHEMISTRY METHOD 08/17/2024 12:44 PM [facility] ALT (SGPT) 30 10 - 60 unit/L LAB CHEMISTRY METHOD 08/17/2024 12:44 PM [facility] Alkaline Phosphatase 63 42 - 121 unit/L LAB CHEMISTRY METHOD 08/17/2024 12:44 PM [facility] Total Protein 5.4(L) 6.0 - 8.0 g/dL LAB CHEMISTRY METHOD 08/17/2024 12:44 PM [facility] Albumin 2.2(L) 3.2 - 5.0 g/dL LAB CHEMISTRY METHOD 08/17/2024 12:[address] [facility] Total Bilirubin 0.3 0.0 - 1.4 mg/dL LAB CHEMISTRY METHOD 08/17/2024 12:[address] [facility] Blood Venous blood specimen / Unknown Venipuncture / Unknown 08/17/2024 8:38 AM EDT 08/17/2024 12:11 PM EDT Damien Kay MD LAB BLOOD ORDERABLES Final Resul t [facility] [address] [place] [address], [place] [phone] * Hemoglobin A1c (08/17/2024 8:38 AM EDT) Hemoglobin A1C 4.8 % 08/18/2024 11:[address] [facility] Mean Bld Glu Estim. 91 mg/dL 08/18/2024 11:[address] [facility] Blood Venous blood specimen / Unknown Venipuncture / Unknown 08/17/2024 8:38 AM EDT 08/17/2024 12:11 PM EDT Damien Kay MD LAB BLOOD ORDERABLES Final Resul t Performing Organization Address City/[facility]/ZIP Co de Phone Number [facility] [address] [place] [address], [place] [phone] documented in this encounter Visit Diagnoses Diagnosis Type 2 diabetes mellitus without complications (CMS/HCC V24, CMS/HCC V28) Unspecified atrial fibrillation (CMS/HCC V24, CMS/HCC V28) Anemia, unspecified documented in this encounter Care Teams Video Production Specialist Relationship Specialty Start Date End Date Damien Kay MD [address] [place] [address], [phone] PCP - General Family Medicine 07/05/24 documented as of this encounter
--- OUTSIDE RECORDS SUMMARY | 2024-08-31 15:19 | XMS_ITS | Clinical Summary ---
Author Organization [address] Address [address] [place] [phone] Phone Care Team Providers Care Television Host Name Role Phone Damien Kay MD Primary Care Provider [phone] Encounters Date Type Department Care Team Description 08/30/2024 Lab Requisition [facility] [address] [place] [phone] Damien Kay MD Heart failure, unspecified ([facility] V24, [facility] V28); Sepsis, unspecified organism ([facility] V24, [facility] V28); Hyperlipidemia, unspecified 08/23/2024 Lab Requisition [facility] [address] [place] [phone] Damien Kay MD Heart failure, unspecified ([facility] V24, [facility] V28); Sepsis, unspecified organism ([facility] V24, [facility] V28); Hyperlipidemia, unspecified 08/16/2024 Lab Requisition [facility] [address] [place] [phone] Damien Kay MD Type 2 diabetes mellitus without complications ([facility] V24, [facility] V28); Unspecified atrial fibrillation ([facility] V24, [facility] V28); Anemia, unspecified 08/15/2024 Lab Requisition [facility] [address] [place] [phone] Damien Kay MD Type 2 diabetes mellitus without complications ([facility] V24, [facility] V28); Unspecified atrial fibrillation ([facility] V24, [facility] V28); Anemia, unspecified 08/09/2024 Lab Requisition [facility] [address] [place] [phone] Damien Kay MD Heart failure, unspecified ([facility] V24, [facility] V28); Sepsis, unspecified organism ([facility] V24, [facility] V28); Hyperlipidemia, unspecified 08/02/2024 Lab Requisition [facility] [address] [place] [phone] Damien Kay MD Heart failure, unspecified ([facility] V24, [facility] V28); Sepsis, unspecified organism ([facility] V24, [facility] V28); Hyperlipidemia, unspecified 07/26/2024 Lab Requisition [facility] [address] [place] [phone] Damien Kay MD Heart failure, unspecified ([facility] V24, [facility] V28); Sepsis, unspecified organism ([facility] V24, [facility] V28); Hyperlipidemia, unspecified 07/19/2024 Lab Requisition [facility] [address] [place] [phone] Damien Kay MD Heart failure, unspecified ([facility] V24, [facility] V28); Sepsis, unspecified organism ([facility] V24, [facility] V28); Hyperlipidemia, unspecified; Type 2 diabetes mellitus without complications ([facility] V24, [facility] V28); Other cerebrovascular disease 07/12/2024 Lab Requisition [facility] [address] [place] [phone] Damien Kay MD Heart failure, unspecified ([facility] V24, [facility] V28); Sepsis, unspecified organism ([facility] V24, [facility] V28); Hyperlipidemia, unspecified; Type 2 diabetes mellitus without complications ([facility] V24, [facility] V28); Other cerebrovascular disease 07/05/2024 Lab Requisition [facility] [address] [place] [phone] Damien Kay MD Heart failure, unspecified (CMS/HCC V24, CMS/HCC V28); Sepsis, unspecified organism ([facility]/HCC V24, CMS/HCC V28); Hyperlipidemia, unspecified; Type 2 diabetes mellitus without complications (CMS/HCC V24, CMS/HCC V28); Other cerebrovascular disease 06/28/2024 Lab Requisition [facility] [address] [place] [phone] Damien Kay MD Heart failure, unspecified (CMS/HCC V24, CMS/HCC V28); Sepsis, unspecified organism (CMS/HCC V24, CMS/HCC V28); Hyperlipidemia, unspecified; Type 2 diabetes mellitus without complications ([facility]/HCC V24, CMS/HCC V28); Other cerebrovascular disease 06/21/2024 Lab Requisition [facility] [address] [place] [phone] Damien Kay MD Hyperlipidemia, unspecified; Sepsis, unspecified organism ([facility]/HCC V24, CMS/HCC V28); Heart failure, unspecified ([facility]/HCC V24, CMS/HCC V28) 06/14/2024 Lab Requisition [facility] [address] [place] [phone] Damien Kay MD Hyperlipidemia, unspecified; Sepsis, unspecified organism ([facility]/HCC V24, CMS/HCC V28); Unspecified atrial fibrillation ([facility]/HCC V24, CMS/HCC V28); Type 2 diabetes mellitus without complications (CMS/HCC V24, CMS/HCC V28); Heart failure, unspecified (CMS/HCC V24, CMS/HCC V28) 06/07/2024 Lab Requisition [facility] [address] [place] [phone] Damien Kay MD Unspecified atrial fibrillation (CMS/HCC V24, CMS/HCC V28); Type 2 diabetes mellitus without complications ([facility] V24, [facility] V28); Heart failure, unspecified ([facility] V24, [facility] V28) from Last 3 Months Social History Tobacco [...] 08/27/1970 Zoster Vaccines (1 of 2) 08/27/2001 Colorectal Cancer Screening: Colonoscopy 04/20/2022 Depression Screening 04/20/2022 Falls Risk Assessment 04/20/2022 Hepatitis C Screening 04/20/2022 Medicare Annual Wellness Visit 04/20/2022 Osteoporosis Screening (Bone Density Screening) 04/20/2022 Social Influencers of Health Screening 04/20/2022 COVID-19 Vaccine ( season) 2024 Diabetes: Annual Urine Albumin-Creatinine Ratio (uACR) 04/11/2024 Influenza Vaccine (Season Ended) 2025 Diabetes: Blood Sugar Control Test (HGBA1C) 02/16/2025 08/17/2024 Diabetes: Annual GFR (Glomerular Filtration Rate) 08/24/2025 08/31/2024, 08/24/2024, 08/17/2024, Additional history exists RSV Immunization Adult Patients (1 - 1-dose 75+ series) 08/27/2026 Cholesterol Screening (Lipid Panel) 08/17/2029 08/17/2024 HIB Vaccines Aged Out No longer eligi [...] age to complete this topic Meningococcal B Vaccine Aged Out No l onger eligible based on patient's age to complete this topic RSV Immunization Patients Under 20 months Aged Out No longer eligible based on patient's age to complete this topic Varicella Vaccines Aged Out No longer eligible based on patient's age to complete this topic Procedures Procedure Name Priority Date/Time Associated Diagnosis Comments B-TYPE NATRIURETIC PEPTIDE Routine 08/31/2024 6:37 AM EDT Heart failure, unspecified (CMS/HCC V24, CMS/HCC V28) Sepsis, unspecified organism (CMS/HCC V24, CMS/HCC V28) Hyperlipidemia, unspecified BASIC METABOLIC PANEL Routine 08/31/2024 6:37 AM EDT Heart failure, unspecified (CMS/HCC V24, CMS/HCC V28) Sepsis, unspecified organism (CMS/HCC V24, CMS/HCC V28) Hyperlipidemia, unspecified COMPLETE BLOOD COUNT Routine 08/31/2024 6:37 AM EDT Heart failure, unspecified (CMS/HCC V24, CMS/HCC V28) Sepsis, unspecified organism (CMS/HCC V24, CMS/HCC V28) Hyperlipidemia, unspecified B-TYPE NATRIURETIC PEPTIDE Routine 08/24/2024 6:47 AM EDT Heart failure, unspecified (CMS/HCC) Sepsis, unspecified organism (CMS/HCC) Hyperlipidemia, unspecified BASIC METABOLIC PANEL Routine 08/24/2024 6:47 AM EDT Heart failure, unspecified (CMS/HCC) Sepsis, unspecified organism (CMS/HCC) Hyperlipidemia, unspecified COMPLETE BLOOD COUNT Routine 08/24/2024 6:47 AM EDT Heart failure, unspecified (CMS/HCC) Sepsis, unspecified organism (CMS/HCC) Hyperlipidemia, unspecified B-TYPE NATRIURETIC PEPTIDE Routine 08/17/2024 8:38 AM EDT Type 2 diabetes mellitus without complications Unspecified atrial fibrillation (CMS/HCC) Anemia, unspecified COMPLETE BLOOD COUNT Routine 08/17/2024 8:38 AM EDT Type 2 diabetes mellitus without complications Unspecified atrial fibrillation (CMS/HCC) Anemia, unspecified LIPID PANEL WITH REFLEX TO DIRECT LDL [...] (CMS/HCC) Anemia, unspecified B-TYPE NATRIURETIC PEPTIDE Routine 08/10/2024 8:36 AM EDT Heart failure, unspecified (CMS/HCC) Sepsis, unspecified organism (CMS/HCC) Hyperlipidemia, unspecified BASIC METABOLIC PANEL Routine 08/10/2024 8:36 AM EDT Heart failure, unspecified (CMS/HCC) Sepsis, unspecified organism (CMS/HCC) Hyperlipidemia, unspecified COMPLETE BLOOD COUNT Routine 08/10/2024 8:36 AM EDT Heart failure, unspecified (CMS/HCC) Sepsis, unspecified organism (CMS/HCC) Hyperlipidemia, unspecified B-TYPE NATRIURETIC PEPTIDE Routine 08/03/2024 8:35 AM EDT Heart failure, unspecified (CMS/HCC) Sepsis, unspecified organism (CMS/HCC) Hyperlipidemia, unspecified BASIC METABOLIC PANEL Routine 08/03/2024 8:35 AM EDT Heart failure, unspecified (CMS/HCC) Sepsis, unspecified organism (CMS/HCC) Hyperlipidemia, unspecified COMPLETE BLOOD COUNT Routine 08/03/2024 8:35 AM EDT Heart failure, unspecified (CMS/HCC) Sepsis, unspecified organism (CMS/HCC) Hyperlipidemia, unspecified CBC WITH AUTO DIFFERENTIAL Routine 07/20/2024 2:13 PM EST Heart failure, unspecified (CMS/HCC) Sepsis, unspecified organism (CMS/HCC) Hyperlipidemia, unspecified Type 2 diabetes mellitus without complications (CMS/HCC) Other cerebrovascular disease CBC AND DIFFERENTIAL Routine 07/20/2024 2:13 PM EST Heart failure, unspecified (CMS/HCC) Sepsis, unspecified organism (CMS/HCC) Hyperlipidemia, unspecified Type 2 diabetes mellitus without complications (CMS/HCC) Other cerebrovascular disease B-TYPE NATRIURETIC PEPTIDE Routine 07/20/2024 2:13 PM EST Heart failure, unspecified (CMS/HCC) Sepsis, unspecified organism (CMS/HCC) Hyperlipidemia, unspecified Type 2 diabetes mellitus without complications (CMS/HCC) Other cerebrovascular disease BASIC METABOLIC PANEL Routine 07/20/2024 2:13 PM EST Heart failure, unspecified (CMS/HCC) Sepsis, unspecified organism (CMS/HCC) Hyperlipidemia, unspecified Type 2 diabetes mellitus without complications (CMS/HCC) Other cerebrovascular disease CBC WITH AUTO DIFFERENTIAL Routine 07/13/2024 5:39 AM EST Heart failure, unspecified (CMS/HCC) Sepsis, unspecified organism (CMS/HCC) Hyperlipidemia, unspecified Type 2 diabetes mellitus without complications (CMS/HCC) Other cerebrovascular disease B-TYPE NATRIURETIC PEPTIDE Routine 07/13/2024 5:39 AM EST Heart failure, unspecified (CMS/HCC) Sepsis, unspecified organism (CMS/HCC) Hyperlipidemia, unspecified Type 2 diabetes mellitus without complications (CMS/HCC) Other cerebrovascular disease BASIC METABOLIC PANEL Routine 07/13/2024 5:39 AM EST Heart failure, unspecified (CMS/HCC) Sepsis, unspecified organism (CMS/HCC) Hyperlipidemia, unspecified Type 2 diabetes mellitus without complications (CMS/HCC) Other cerebrovascular disease CBC AND DIFFERENTIAL Routine 07/13/2024 5:39 AM EST Heart failure, unspecified (CMS/HCC) Sepsis, unspecified organism (CMS/HCC) Hyperlipidemia, unspecified Type 2 diabetes mellitus without complications (CMS/HCC) Other cerebrovascular disease CBC WITH AUTO DIFFERENTIAL Routine 07/06/2024 7:59 [...] without complications (CMS/HCC) Other cerebrovascular disease CBC WITH AUTO DIFFERENTIAL Routine 06/29/2024 6:37 [...] without complications (CMS/HCC) Heart failure, unspecified (CMS/HCC) from Last 3 Months Results * (ABNORMAL) Complete blood count (08/31/2024 6:37 AM EDT) Only the most recent of10 resultswithin the time period is included. WBC 5.8 4.8 - 10.8 K/mcL LAB HEMETOLOGY METHOD 08/31/2024 11:30 AM [facility] RBC 2.20(L) 3.80 - 4.80 M/mcL LAB HEMETOLOGY METHOD 08/31/2024 11:30 AM [facility] Hemoglobin 6.4(LL) 11.5 - 16.0 g/dL LAB HEMETOLOGY METHOD 08/31/2024 11:30 AM [facility] Hematocrit 20.6(L) 35.0 - 47.0 % LAB HEMETOLOGY METHOD 08/31/2024 11:30 AM [facility] MCV 95.0 79.0 - 98.0 FL LAB HEMETOLOGY METHOD 08/31/2024 11:30 AM [facility] MCH 28.8 27.0 - 32.0 pcg LAB HEMETOLOGY METHOD 08/31/2024 11:30 AM EDT [facility] MCHC 30.3(L) 32.0 - 37.0 g/dL LAB HEMETOLOGY METHOD 08/31/2024 11:30 AM EDT [facility] RDW 15.5(H) 11.0 - 15.0 % LAB HEMETOLOGY METHOD 08/31/2024 11:30 AM EDT [facility] Platelets 541(H) 130 - 400 K/mcL LAB HEMETOLOGY METHOD 08/31/2024 11:30 AM EDT [facility] MPV 10.5 7.0 - 11.0 FL LAB HEMETOLOGY METHOD 08/31/2024 11:30 AM EDT [facility] NRBC 0.0 <1.0 % LAB HEMETOLOGY METHOD 08/31/2024 11:30 AM EDT [facility] NRBC Absolute 0.00 <0.10 K/mcL LAB HEMETOLOGY METHOD 08/31/2024 11:30 AM EDT [facility] Blood Venous blood specimen / Unknown Venipuncture / Unknown 08/31/2024 6:37 AM EDT 08/31/2024 11:13 AM EDT us Damien Kay MD LAB BLOOD ORDERABLES Final Resul t [facility] [address] [place] [address], * (ABNORMAL) B-type natriuretic peptide (08/31/2024 6:37 AM EDT) Only the most recent of11 resultswithin the time period is included. BNP 710(H) <=100 pcg/mL LAB CHEMISTRY METHOD 08/31/2024 11:55 AM EDT [facility] Blood Venous blood specimen / Unknown Venipuncture / Unknown 08/31/2024 6:37 AM EDT 08/31/2024 11:13 AM EDT us Damien Kay MD LAB BLOOD ORDERABLES Final Resul t [facility] [address] [place] [address], [place] [phone] * Basic metabolic panel (08/31/2024 6:37 AM EDT) Only the most recent of11 resultswithin the time period is included. Pathologist [facility] Sodium 140 133 - 145 mmol/L LAB CHEMISTRY METHOD 08/31/2024 12:41 PM [facility] Potassium 3.5 3.5 - 5.5 mmol/L LAB CHEMISTRY METHOD 08/31/2024 12:41 PM [facility] Chloride 106 96 - 110 mmol/L LAB CHEMISTRY METHOD 08/31/2024 12:41 PM [facility] CO2 28 21 - 32 mmol/L LAB CHEMISTRY METHOD 08/31/2024 12:41 PM [facility] Anion Gap 6 3 - 11 LAB CHEMISTRY METHOD 08/31/2024 12:41 PM [facility] Glucose 85 70 - 100 mg/dL LAB CHEMISTRY METHOD 08/31/2024 12:41 PM [facility] BUN 16 5 - 25 mg/dL LAB CHEMISTRY METHOD 08/31/2024 12:41 PM [facility] Creatinine 0.85 0.50 - 1.10 mg/dL LAB CHEMISTRY METHOD 08/31/2024 12:41 PM [facility] eGFR 72 >=60 mL/min/1. 73m2 LAB CHEMISTRY METHOD 08/31/2024 12:41 PM [facility] Comment:Calculation based on the??Chronic Kidney Disease Epidemiology Collaboration (CKD-EPI) equation refit??without adjustment for race. BUN/Creatinine Ratio 18.8 LAB CHEMISTRY METHOD 08/31/2024 12:41 PM EDT [facility] Calcium 8.6 8.5 - 10.5 mg/dL LAB CHEMISTRY METHOD 08/31/2024 12:41 PM EDT [facility] Blood Venous blood specimen / Unknown Venipuncture / Unknown 08/31/2024 6:37 AM EDT 08/31/2024 11:13 AM EDT us Damien Kay MD LAB BLOOD ORDERABLES Final Resul t [facility] [address] [place] [address], [place] [phone] * Lipid panel with reflex to direct LDL (08/17/2024 8:38 AM EDT) Cholesterol 118 0 - 200 mg/dL LAB CHEMISTRY METHOD 08/17/2024 12:44 PM [facility] Triglycerides 90 0 - 150 mg/dL LAB CHEMISTRY METHOD 08/17/2024 12:44 PM [facility] HDL 54 >=40 mg/dL LAB CHEMISTRY METHOD 08/17/2024 12:44 PM T [facility] LDL Calculated 46 0 - 100 mg/dL LAB CHEMISTRY METHOD 08/17/2024 12:44 PM [facility] VLDL Cholesterol Moi 18 mg/dL LAB CHEMISTRY METHOD 08/17/2024 12:44 PM T [facility] Non HDL Chol. (LDL+VLDL) 64 <145 mg/dL LAB CHEMISTRY METHOD 08/17/2024 12:44 PM [facility] Chol/HDL Ratio 2.2 0.0 - 4.4 LAB CHEMISTRY METHOD 08/17/2024 12:44 PM [facility] Blood Venous blood specimen / Unknown Venipuncture / Unknown 08/17/2024 8:38 AM EDT 08/17/2024 12:11 PM EDT Damien Kay MD LAB BLOOD ORDERABLES Final Resul t Performing Organization Address City/[facility]/ZIP Co de Phone Number [facility] [address] [place] [address], [place] [phone] * Hemoglobin A1c (08/17/2024 8:38 AM EDT) Pathologist [facility] Hemoglobin A1C 4.8 % 08/18/2024 11:23 AM EDT [facility] Mean Bld Glu Estim. 91 mg/dL 08/18/2024 11:23 AM EDT [facility] Blood Venous blood specimen / Unknown Venipuncture / Unknown 08/17/2024 8:38 AM EDT 08/17/2024 12:11 PM EDT us Damien Kay MD LAB BLOOD ORDERABLES Final Resul t Performing Organization Address [facility] Co de Phone Number [facility] [address] [place] [address], [place] [phone] * (ABNORMAL) Comprehensive metabolic panel (08/17/2024 8:38 AM EDT) [facility] Sodium 139 133 - 145 mmol/L LAB CHEMISTRY METHOD 08/17/2024 12:44 PM EDT [facility] Potassium 4.2 3.5 - 5.5 mmol/L LAB CHEMISTRY METHOD 08/17/2024 12:44 PM EDT [facility] Chloride 107 96 - 110 mmol/L LAB CHEMISTRY METHOD 08/17/2024 12:44 PM EDT [facility] CO2 25 21 - 32 mmol/L LAB CHEMISTRY METHOD 08/17/2024 12:44 PM EDT [facility] Anion Gap 7 3 - 11 LAB CHEMISTRY METHOD 08/17/2024 12:44 PM EDT [facility] Glucose 145(H) 70 - 100 mg/dL LAB CHEMISTRY METHOD 08/17/2024 12:44 PM [facility] BUN 15 5 - 25 mg/dL LAB CHEMISTRY METHOD 08/17/2024 12:44 PM [facility] Creatinine 0.97 0.50 - 1.10 mg/dL LAB CHEMISTRY METHOD 08/17/2024 12:44 PM [facility] eGFR 62 >=60 mL/min/1. 73m2 LAB CHEMISTRY METHOD 08/17/2024 12:44 PM [facility] Comment:Calculation based on the??Chronic Kidney Disease Epidemiology Collaboration (CKD-EPI) equation refit??without adjustment for race. BUN/Creatinine Ratio 15.5 LAB CHEMISTRY METHOD 08/17/2024 12:44 PM [facility] Calcium 8.5 8.5 - 10.5 mg/dL LAB CHEMISTRY METHOD 08/17/2024 12:44 PM [facility] AST (SGOT) 33 10 - 42 unit/L LAB CHEMISTRY METHOD 08/17/2024 12:44 PM [facility] ALT (SGPT) 30 10 - 60 unit/L LAB CHEMISTRY METHOD 08/17/2024 12:44 PM [facility] Alkaline Phosphatase 63 42 - 121 unit/L LAB CHEMISTRY METHOD 08/17/2024 12:44 PM [facility] Total Protein 5.4(L) 6.0 - 8.0 g/dL LAB CHEMISTRY METHOD 08/17/2024 12:44 PM [facility] Albumin 2.2(L) 3.2 - 5.0 g/dL LAB CHEMISTRY METHOD 08/17/2024 12:44 PM [facility] Total Bilirubin 0.3 0.0 - 1.4 mg/dL LAB CHEMISTRY METHOD 08/17/2024 12:44 PM [facility] Blood Venous blood specimen / Unknown Venipuncture / Unknown 08/17/2024 8:38 AM EDT 08/17/2024 12:11 PM EDT us Damien Kay MD LAB BLOOD ORDERABLES Final Resul t [facility] [address] [place] [address], [place] [phone] * (ABNORMAL) CBC auto differential (07/20/2024 2:13 PM EST) Only the most recent of4 resultswithin the time period is included. WBC 7.9 4.8 - 10.8 K/mcL LAB HEMETOLOGY METHOD 07/20/2024 3:15 PM [facility] RBC 3.40(L) 3.80 - 4.80 M/mcL LAB HEMETOLOGY METHOD 07/20/2024 3:15 PM [facility] Hemoglobin 10.3(L) 11.5 - 16.0 g/dL LAB HEMETOLOGY METHOD 07/20/2024 3:15 PM [facility] Hematocrit 32.2(L) 35.0 - 47.0 % LAB HEMETOLOGY METHOD 07/20/2024 3:15 PM [facility] MCV 94.7 79.0 - 98.0 FL LAB HEMETOLOGY METHOD 07/20/2024 3:15 PM [facility] MCH 30.3 27.0 - 32.0 pcg LAB HEMETOLOGY METHOD 07/20/2024 3:15 PM [facility] MCHC 32.0 32.0 - 37.0 g/dL LAB HEMETOLOGY METHOD 07/20/2024 3:15 PM [facility] RDW 19.0(H) 11.0 - 15.0 % LAB HEMETOLOGY METHOD 07/20/2024 3:15 PM [facility] Platelets 622(H) 130 - 400 K/mcL LAB HEMETOLOGY METHOD 07/20/2024 3:15 PM [facility] MPV 10.8 7.0 - 11.0 FL LAB HEMETOLOGY METHOD 07/20/2024 3:15 PM [facility] NRBC 0.0 <1.0 % LAB HEMETOLOGY METHOD 07/20/2024 3:15 PM [facility] NRBC Absolute 0.00 <0.10 K/mcL LAB HEMETOLOGY METHOD 07/20/2024 3:15 PM [facility] Neutrophils Relative 63.1 % LAB HEMETOLOGY METHOD 07/20/2024 3:15 PM [facility] Lymphocytes Relative 26.1 % LAB HEMETOLOGY METHOD 07/20/2024 3:15 PM [facility] Monocytes Relative 8.3 % LAB HEMETOLOGY METHOD 07/20/2024 3:15 PM [facility] Eosinophils Relative 1.0 % LAB HEMETOLOGY METHOD 07/20/2024 3:15 PM [facility] Basophils Relative 1.4 % LAB HEMETOLOGY METHOD 07/20/2024 3:15 PM [facility] Immature Granulocytes Relative 0.1 % LAB HEMETOLOGY METHOD 07/20/2024 3:15 PM [facility] Neutrophils Absolute 4.96 1.50 - 7.00 K/mcL LAB HEMETOLOGY METHOD 07/20/2024 3:15 PM [facility] Lymphocytes Absolute 2.05 1.00 - 5.00 K/mcL LAB HEMETOLOGY METHOD 07/20/2024 3:15 PM [facility] Monocytes Absolute 0.65 0.20 - 1.00 K/mcL LAB HEMETOLOGY METHOD 07/20/2024 3:15 PM [facility] Eosinophils Absolute 0.08 0.00 - 0.50 K/mcL LAB HEMETOLOGY METHOD 07/20/2024 3:15 PM EST [facility] Basophils Absolute 0.11 0.00 - 0.20 K/[facility] LAB HEMETOLOGY METHOD 07/20/2024 3:15 PM EST [facility] Immature Granulocytes Absolute 0.01 0.00 - 0.03 K/[facility] LAB HEMETOLOGY METHOD 07/20/2024 3:15 PM EST [facility] Blood Venous blood specimen / Unknown Venipuncture / Unknown 07/20/2024 2:13 PM EST 07/20/2024 2:59 PM EST us Damien Kay MD LAB BLOOD ORDERABLES Final Resul t [facility] [address] [place] [address], from Last 3 Months Insurance MEDIC[place] Care Teams Television Host Relationship Specialty Start Date End Date Damien Kay MD [address] [place] [address], [phone] PCP - General Family Medicine 07/05/24
--- OUTSIDE RECORDS SUMMARY | 2024-08-31 15:19 | XMS_ITS | Encounter Summary ---
Author Organization [facility] Address [address] [place] [phone] Care Team Providers Care Service Station Equipment Mechanic Name Role Phone Damien Kay MD Primary Care Provider [phone] Encounter Details Date Type Department Care Team (Late st Contact Info) Description 08/23/2024 Lab Requisition [facility] - Main Lab [address] [facility] [place] [address] Damien Kay MD 38 [facility] [address] [place], [address] Heart failure, unspecified (CMS/HCC V24, CMS/HCC [...] Associated Diagnosis Comments COMPLETE BLOOD COUNT Routine 08/24/2024 6:47 AM EDT Heart failure, unspecified (CMS/HCC) Sepsis, unspecified organism (CMS/HCC) Hyperlipidemia, unspecified B-TYPE NATRIURETIC PEPTIDE Routine 08/24/2024 6:47 AM EDT Heart failure, unspecified (CMS/HCC) Sepsis, unspecified organism (CMS/HCC) Hyperlipidemia, unspecified BASIC METABOLIC PANEL Routine 08/24/2024 6:47 AM EDT Heart failure, unspecified (CMS/HCC) Sepsis, unspecified organism (CMS/HCC) Hyperlipidemia, unspecified documented in this encounter Results * (ABNORMAL) B-type natriuretic peptide (08/24/2024 6:47 AM EDT) Pathologist [facility] BNP 1,090(H) <=100 pcg/mL LAB CHEMISTRY METHOD 08/24/2024 2:06 PM EDT [facility] Blood Venous blood specimen / Unknown Venipuncture / Unknown 08/24/2024 6:47 AM EDT 08/24/2024 12:06 PM EDT us Damien Kay MD LAB BLOOD ORDERABLES Final Resul t [facility] [address] [place] [address], [place] [phone] * Basic metabolic panel (08/24/2024 6:47 AM EDT) [facility] Sodium 143 133 - 145 mmol/L LAB CHEMISTRY METHOD 08/24/2024 12:[address] [facility] Potassium 4.3 3.5 - 5.5 mmol/L LAB CHEMISTRY METHOD 08/24/2024 12:[address] [facility] Chloride 109 96 - 110 mmol/L LAB CHEMISTRY METHOD 08/24/2024 12:[address] [facility] CO2 24 21 - 32 mmol/L LAB CHEMISTRY METHOD 08/24/2024 12:[address] [facility] Anion Gap 10 3 - 11 LAB CHEMISTRY METHOD 08/24/2024 12:[address] [facility] Glucose 76 70 - 100 mg/dL LAB CHEMISTRY METHOD 08/24/2024 12:[address] [facility] BUN 14 5 - 25 mg/dL LAB CHEMISTRY METHOD 08/24/2024 12:[address] [facility] Creatinine 0.92 0.50 - 1.10 mg/dL LAB CHEMISTRY METHOD 08/24/2024 12:32 PM EDT [facility] eGFR 66 >=60 mL/min/1. 73m2 LAB CHEMISTRY METHOD 08/24/2024 12:32 PM EDT [facility] Comment:Calculation based on the??Chronic Kidney Disease Epidemiology Collaboration (CKD-EPI) equation refit??without adjustment for race. BUN/Creatinine Ratio 15.2 LAB CHEMISTRY METHOD 08/24/2024 12:32 PM EDT [facility] Calcium 9.1 8.5 - 10.5 mg/dL LAB CHEMISTRY METHOD 08/24/2024 12:32 PM EDT [facility] Blood Venous blood specimen / Unknown Venipuncture / Unknown 08/24/2024 6:47 AM EDT 08/24/2024 11:13 AM EDT us Damien Kay MD LAB BLOOD ORDERABLES Final Resul t [facility] [address] [place] [address], [place] [phone] * (ABNORMAL) Complete blood count (08/24/2024 6:47 AM EDT) WBC 6.7 4.8 - 10.8 K/mcL LAB HEMETOLOGY METHOD 08/24/2024 11:43 AM EDT [facility] RBC 2.50(L) 3.80 - 4.80 M/mcL LAB HEMETOLOGY METHOD 08/24/2024 11:43 AM EDT [facility] Hemoglobin 7.4(L) 11.5 - 16.0 g/dL LAB HEMETOLOGY METHOD 08/24/2024 11:43 AM T [facility] Hematocrit 23.4(L) 35.0 - 47.0 % LAB HEMETOLOGY METHOD 08/24/2024 11:43 AM EDT [facility] MCV 92.9 79.0 - 98.0 FL LAB HEMETOLOGY METHOD 08/24/2024 11:43 AM EDT [facility] MCH 29.4 27.0 - 32.0 pcg LAB HEMETOLOGY METHOD 08/24/2024 11:43 AM EDT [facility] MCHC 31.6(L) 32.0 - 37.0 g/dL LAB HEMETOLOGY METHOD 08/24/2024 11:43 AM EDT [facility] RDW 14.6 11.0 - 15.0 % LAB HEMETOLOGY METHOD 08/24/2024 11:43 AM EDT [facility] Platelets 604(H) 130 - 400 K/mcL LAB HEMETOLOGY METHOD 08/24/2024 11:43 AM EDT [facility] MPV 10.1 7.0 - 11.0 FL LAB HEMETOLOGY METHOD 08/24/2024 11:43 AM EDT [facility] NRBC 0.0 <1.0 % LAB HEMETOLOGY METHOD 08/24/2024 11:43 AM EDT [facility] NRBC Absolute 0.00 <0.10 K/mcL LAB HEMETOLOGY METHOD 08/24/2024 11:[address] [facility] Blood Venous blood specimen / Unknown Venipuncture / Unknown 08/24/2024 6:47 AM EDT 08/24/2024 11:08 AM EDT us Damien Kay MD LAB BLOOD ORDERABLES Final Resul t [facility] [address] [place] [address], documented in this encounter Visit Diagnoses Diagnosis Heart failure, unspecified (CMS/HCC V24, CMS/[facility] V28) Heart failure, unspecified Sepsis, unspecified organism (CMS/HCC V24, CMS/HCC V28) Hyperlipidemia, unspecified documented in this encounter Care Teams Service Station Equipment Mechanic Relationship Specialty Start Date End Date Damien Kay MD 38 [facility] [address] [place], [phone] PCP - General Family Medicine 07/05/24 documented as of this encounter
--- OUTSIDE RECORDS SUMMARY | 2024-08-31 15:19 | XMS_ITS | Encounter Summary ---
Author Organization [facility] Address [address] [place] [phone] Care Team Providers Care Overhead Door Technician Name Role Phone Damien Kay MD Primary Care Provider [phone] Encounter Details Date Type Department Care Team (Latest Contact Info) Description 07/12/2024 Lab Requisition [facility] - Main Lab 299 [facility] [place] [address] Damien Kay MD [address] [facility] [address] [place], [phone] Heart failure, unspecified (CMS/HCC V24, CMS/HCC [...] Diagnosis Comments CBC WITH AUTO DIFFERENTIAL Routine 07/13/2024 5:39 [...] encounter Results * (ABNORMAL) CBC auto differential (07/13/2024 5:39 AM EST) [facility] WBC 9.0 4.8 - 10.8 K/mcL LAB HEMETOLOGY METHOD 07/13/2024 10:29 AM [facility] RBC 2.90(L) 3.80 - 4.80 M/mcL LAB HEMETOLOGY METHOD 07/13/2024 10:29 AM [facility] Hemoglobin 8.6(L) 11.5 - 16.0 g/dL LAB HEMETOLOGY METHOD 07/13/2024 10:29 AM [facility] Hematocrit 27.7(L) 35.0 - 47.0 % LAB HEMETOLOGY METHOD 07/13/2024 10:29 AM [facility] MCV 96.2 79.0 - 98.0 FL LAB HEMETOLOGY METHOD 07/13/2024 10:29 AM [facility] MCH 29.9 27.0 - 32.0 pcg LAB HEMETOLOGY METHOD 07/13/2024 10:29 AM [facility] MCHC 31.0(L) 32.0 - 37.0 g/dL LAB HEMETOLOGY METHOD 07/13/2024 10:29 AM [facility] RDW 21.9(H) 11.0 - 15.0 % LAB HEMETOLOGY METHOD 07/13/2024 10:29 AM [facility] Platelets 558(H) 130 - 400 K/mcL LAB HEMETOLOGY METHOD 07/13/2024 10:29 AM [facility] MPV 10.5 7.0 - 11.0 FL LAB HEMETOLOGY METHOD 07/13/2024 10:29 AM [facility] NRBC 0.0 <1.0 % LAB HEMETOLOGY METHOD 07/13/2024 10:29 AM [facility] NRBC Absolute 0.00 <0.10 K/mcL LAB HEMETOLOGY METHOD 07/13/2024 10:29 AM [facility] Neutrophils Relative 61.4 % LAB HEMETOLOGY METHOD 07/13/2024 10:29 AM [facility] Lymphocytes Relative 26.0 % LAB HEMETOLOGY METHOD 07/13/2024 10:29 AM [facility] Monocytes Relative 10.0 % LAB HEMETOLOGY METHOD 07/13/2024 10:29 AM [facility] Eosinophils Relative 1.4 % LAB HEMETOLOGY METHOD 07/13/2024 10:29 AM [facility] Basophils Relative 0.9 % LAB HEMETOLOGY METHOD 07/13/2024 10:29 AM [facility] Immature Granulocytes Relative 0.3 % LAB HEMETOLOGY METHOD 07/13/2024 10:29 AM [facility] Neutrophils Absolute 5.52 1.50 - 7.00 K/mcL LAB HEMETOLOGY METHOD 07/13/2024 10:29 AM [facility] Lymphocytes Absolute 2.34 1.00 - 5.00 K/mcL LAB HEMETOLOGY METHOD 07/13/2024 10:29 AM [facility] Monocytes Absolute 0.90 0.20 - 1.00 K/mcL LAB HEMETOLOGY METHOD 07/13/2024 10:29 AM EST [facility] Eosinophils Absolute 0.13 0.00 - 0.50 K/[facility] LAB HEMETOLOGY METHOD 07/13/2024 10:29 AM EST [facility] Basophils Absolute 0.08 0.00 - 0.20 K/[facility] LAB HEMETOLOGY METHOD 07/13/2024 10:29 AM EST [facility] Immature Granulocytes Absolute 0.03 0.00 - 0.03 K/[facility] LAB HEMETOLOGY METHOD 07/13/2024 10:29 AM EST [facility] Blood Venous blood specimen / Unknown Venipuncture / Unknown 07/13/2024 5:39 AM EST 07/13/2024 9:58 AM EST Damien Kay MD LAB BLOOD ORDERABLES Final Resul t Performing Organization Address City/[facility]/ZIP Co de Phone Number [facility] [address] [place] [address], [place] [phone] * (ABNORMAL) B-type natriuretic peptide (07/13/2024 5:39 AM EST) Pathologist [facility] BNP 308(H) <=100 pcg/mL LAB CHEMISTRY METHOD 07/13/2024 11:14 AM EST [facility] Blood Venous blood specimen / Unknown Venipuncture / Unknown 07/13/2024 5:39 AM EST 07/13/2024 9:58 AM EST Damien Kay MD LAB BLOOD ORDERABLES Final Resul t [facility] [address] [place] [address], [place] [phone] * (ABNORMAL) Basic metabolic panel (07/13/2024 5:39 AM EST) Pathologist [facility] Sodium 140 133 - 145 mmol/L LAB CHEMISTRY METHOD 07/13/2024 10:41 AM [facility] Potassium 3.5 3.5 - 5.5 mmol/L LAB CHEMISTRY METHOD 07/13/2024 10:41 AM [facility] Chloride 106 96 - 110 mmol/L LAB CHEMISTRY METHOD 07/13/2024 10:41 AM [facility] CO2 27 21 - 32 mmol/L LAB CHEMISTRY METHOD 07/13/2024 10:41 AM [facility] Anion Gap 7 3 - 11 LAB CHEMISTRY METHOD 07/13/2024 10:41 AM [facility] Glucose 76 70 - 100 mg/dL LAB CHEMISTRY METHOD 07/13/2024 10:41 AM [facility] BUN 11 5 - 25 mg/dL LAB CHEMISTRY METHOD 07/13/2024 10:41 AM [facility] Creatinine 0.80 0.50 - 1.10 mg/dL LAB CHEMISTRY METHOD 07/13/2024 10:41 AM [facility] eGFR 78 >=60 mL/min/1. 73m2 LAB CHEMISTRY METHOD 07/13/2024 10:41 AM [facility] Comment:Calculation based on the??Chronic Kidney Disease Epidemiology Collaboration (CKD-EPI) equation refit??without adjustment for race. BUN/Creatinine Ratio 13.8 LAB CHEMISTRY METHOD 07/13/2024 10:41 AM [facility] Calcium 8.4(L) 8.5 - 10.5 mg/dL LAB CHEMISTRY METHOD 07/13/2024 10:41 AM [facility] Blood Venous blood specimen / Unknown Venipuncture / Unknown 07/13/2024 5:39 AM EST 07/13/2024 9:58 AM EST us Damien Kay MD LAB BLOOD ORDERABLES Final Resul t [facility] [address] [place] [address], [place] [phone] documented in this encounter Visit Diagnoses Diagnosis Heart failure, unspecified ([facility] V24, [facility] V28) Heart failure, unspecified Sepsis, unspecified organism ([facility] V24, [facility] V28) Hyperlipidemia, unspecified Type 2 diabetes mellitus without complications ([facility] V24, [facility] V28) Other cerebrovascular disease documented in this encounter Care Teams Overhead Door Technician Relationship Specialty Start Date End Date Damien Kay MD [address] [place] [address], [phone] PCP - General Family Medicine 07/05/24 documented as of this encounter
--- OUTSIDE RECORDS SUMMARY | 2024-08-31 15:19 | XMS_ITS | Encounter Summary ---
Author Organization [facility] Address [address] [place] [phone] Care Team Providers Care Hydraulic Repairer Name Role Phone Damien Kay MD Primary Care Provider [phone] Encounter Details Date Type Department Care Team (Latest Contact Info) Description 07/19/2024 Lab Requisition [facility] - Main Lab 299 [facility] [place] [address] Damien Kay MD 38 [facility] [address] [place], [phone] Heart failure, unspecified (CMS/HCC V24, CMS/HCC [...] Diagnosis Comments CBC WITH AUTO DIFFERENTIAL Routine 07/20/2024 2:13 [...] encounter Results * (ABNORMAL) CBC auto differential (07/20/2024 2:13 PM EST) [facility] WBC 7.9 4.8 - 10.8 K/mcL LAB HEMETOLOGY METHOD 07/20/2024 3:15 PM [facility] RBC 3.40(L) 3.80 - 4.80 M/mcL LAB HEMETOLOGY METHOD 07/20/2024 3:15 PM [facility] Hemoglobin 10.3(L) 11.5 - 16.0 g/dL LAB HEMETOLOGY METHOD 07/20/2024 3:15 PM [facility] Hematocrit 32.2(L) 35.0 - 47.0 % LAB HEMETOLOGY METHOD 07/20/2024 3:15 PM [facility] MCV 94.7 79.0 - 98.0 FL LAB HEMETOLOGY METHOD 07/20/2024 3:15 PM [facility] MCH 30.3 27.0 - 32.0 pcg LAB HEMETOLOGY METHOD 07/20/2024 3:15 PM [facility] MCHC 32.0 32.0 - 37.0 g/dL LAB HEMETOLOGY METHOD 07/20/2024 3:15 PM [facility] RDW 19.0(H) 11.0 - 15.0 % LAB HEMETOLOGY METHOD 07/20/2024 3:15 PM [facility] Platelets 622(H) 130 - 400 K/mcL LAB HEMETOLOGY METHOD 07/20/2024 3:15 PM [facility] MPV 10.8 7.0 - 11.0 FL LAB HEMETOLOGY METHOD 07/20/2024 3:15 PM [facility] NRBC 0.0 <1.0 % LAB HEMETOLOGY METHOD 07/20/2024 3:15 PM [facility] NRBC Absolute 0.00 <0.10 K/mcL LAB HEMETOLOGY METHOD 07/20/2024 3:15 PM [facility] Neutrophils Relative 63.1 % LAB HEMETOLOGY METHOD 07/20/2024 3:15 PM [facility] Lymphocytes Relative 26.1 % LAB HEMETOLOGY METHOD 07/20/2024 3:15 PM [facility] Monocytes Relative 8.3 % LAB HEMETOLOGY METHOD 07/20/2024 3:15 PM [facility] Eosinophils Relative 1.0 % LAB HEMETOLOGY METHOD 07/20/2024 3:15 PM [facility] Basophils Relative 1.4 % LAB HEMETOLOGY METHOD 07/20/2024 3:15 PM [facility] Immature Granulocytes Relative 0.1 % LAB HEMETOLOGY METHOD 07/20/2024 3:15 PM [facility] Neutrophils Absolute 4.96 1.50 - 7.00 K/mcL LAB HEMETOLOGY METHOD 07/20/2024 3:15 PM [facility] Lymphocytes Absolute 2.05 1.00 - 5.00 K/mcL LAB HEMETOLOGY METHOD 07/20/2024 3:15 PM [facility] Monocytes Absolute 0.65 0.20 - 1.00 K/mcL LAB HEMETOLOGY METHOD 07/20/2024 3:15 PM EST [facility] Eosinophils Absolute 0.08 0.00 - 0.50 K/[facility] LAB HEMETOLOGY METHOD 07/20/2024 3:15 PM EST [facility] Basophils Absolute 0.11 0.00 - 0.20 K/[facility] LAB HEMETOLOGY METHOD 07/20/2024 3:15 PM EST [facility] Immature Granulocytes Absolute 0.01 0.00 - 0.03 K/[facility] LAB HEMETOLOGY METHOD 07/20/2024 3:15 PM EST [facility] Blood Venous blood specimen / Unknown Venipuncture / Unknown 07/20/2024 2:13 PM EST 07/20/2024 2:59 PM EST Damien Kay MD LAB BLOOD ORDERABLES Final Resul t Performing Organization Address [facility]/ZIP Co de Phone Number [facility] [address] [place] [address], [place] [phone] * (ABNORMAL) B-type natriuretic peptide (07/20/2024 2:13 PM EST) Pathologist [facility] BNP 299(H) <=100 pcg/mL LAB CHEMISTRY METHOD 07/20/2024 4:08 PM EST [facility] Blood Venous blood specimen / Unknown Venipuncture / Unknown 07/20/2024 2:13 PM EST 07/20/2024 2:58 PM EST Damien Kay MD LAB BLOOD ORDERABLES Final Resul t [facility] [address] [place] [address], [place] [phone] * Basic metabolic panel (07/20/2024 2:13 PM EST) Sodium 139 133 - 145 mmol/L LAB CHEMISTRY METHOD 07/20/2024 3:43 PM [facility] Potassium 3.6 3.5 - 5.5 mmol/L LAB CHEMISTRY METHOD 07/20/2024 3:43 PM [facility] Chloride 103 96 - 110 mmol/L LAB CHEMISTRY METHOD 07/20/2024 3:43 PM [facility] CO2 26 21 - 32 mmol/L LAB CHEMISTRY METHOD 07/20/2024 3:43 PM [facility] Anion Gap 10 3 - 11 LAB CHEMISTRY METHOD 07/20/2024 3:43 PM [facility] Glucose 90 70 - 100 mg/dL LAB CHEMISTRY METHOD 07/20/2024 3:43 PM [facility] BUN 10 5 - 25 mg/dL LAB CHEMISTRY METHOD 07/20/2024 3:43 PM [facility] Creatinine 0.83 0.50 - 1.10 mg/dL LAB CHEMISTRY METHOD 07/20/2024 3:43 PM [facility] eGFR 75 >=60 mL/min/1. 73m2 LAB CHEMISTRY METHOD 07/20/2024 3:43 PM [facility] Comment:Calculation based on the??Chronic Kidney Disease Epidemiology Collaboration (CKD-EPI) equation refit??without adjustment for race. BUN/Creatinine Ratio 12.0 LAB CHEMISTRY METHOD 07/20/2024 3:43 PM [facility] Calcium 9.2 8.5 - 10.5 mg/dL LAB CHEMISTRY METHOD 07/20/2024 3:43 PM [facility] Blood Venous blood specimen / Unknown Venipuncture / Unknown 07/20/2024 2:13 PM EST 07/20/2024 3:00 PM EST us Damien Kay MD LAB BLOOD ORDERABLES Final Resul t [facility] [address] [place] [address], [place] [phone] documented in this encounter Visit Diagnoses Diagnosis Heart failure, unspecified ([facility] V24, [facility] V28) Heart failure, unspecified Sepsis, unspecified organism ([facility] V24, [facility] V28) Hyperlipidemia, unspecified Type 2 diabetes mellitus without complications ([facility] V24, [facility] V28) Other cerebrovascular disease documented in this encounter Care Teams Hydraulic Repairer Relationship Specialty Start Date End Date Damien Kay MD [address] [place] [address], [phone] PCP - General Family Medicine 07/05/24 documented as of this encounter
--- OUTSIDE RECORDS SUMMARY | 2024-08-31 15:19 | XMS_ITS | Encounter Summary ---
Author Organization [facility] Address [address] [place] [phone] Care Team Providers Care Grinder Set Up Operator Internal Name Role Phone Damien Kay MD Primary Care Provider [phone] Encounter Details Date Type Department Care Team (Late st Contact Info) Description 05/31/2024 Lab Requisition [facility] - Main Lab 299 [facility] [place] [address] Damien Kay MD 38 [facility] [address] [place], [phone] Unspecified atrial fibrillation (CMS/HCC V24, CMS/HCC [...] mmol/L LAB CHEMISTRY METHOD 06/01/2024 8:43 AM [facility] Potassium 3.9 3.5 - 5.5 mmol/L LAB CHEMISTRY METHOD 06/01/2024 8:43 AM [facility] Chloride 107 96 - 110 mmol/L LAB CHEMISTRY METHOD 06/01/2024 8:43 AM [facility] CO2 27 21 - 32 mmol/L LAB CHEMISTRY METHOD 06/01/2024 8:43 AM [facility] Anion Gap 7 3 - 11 LAB CHEMISTRY METHOD 06/01/2024 8:43 AM [facility] Glucose 104(H) 70 - 100 mg/dL LAB CHEMISTRY METHOD 06/01/2024 8:43 AM [facility] BUN 25 5 - 25 mg/dL LAB CHEMISTRY METHOD 06/01/2024 8:43 AM [facility] Creatinine 1.46(H) 0.50 - 1.10 mg/dL LAB CHEMISTRY METHOD 06/01/2024 8:43 AM [facility] eGFR 38(L) >=60 mL/min/1. 73m2 LAB CHEMISTRY METHOD 06/01/2024 8:43 AM [facility] Comment:Calculation based on the??Chronic Kidney Disease Epidemiology Collaboration (CKD-EPI) equation refit??without adjustment for race. BUN/Creatinine Ratio 17.1 LAB CHEMISTRY METHOD 06/01/2024 8:43 AM [facility] Calcium 8.4(L) 8.5 - 10.5 mg/dL LAB CHEMISTRY METHOD 06/01/2024 8:43 AM [facility] Blood Venous blood specimen / Unknown Venipuncture / Unknown 06/01/2024 5:17 AM EST 06/01/2024 8:06 AM EST us Damien Kay MD LAB BLOOD ORDERABLES Final Resul t [facility] [address] [place] [address], * (ABNORMAL) Complete blood count (06/01/2024 5:17 AM EST) WBC 9.3 4.8 - 10.8 K/mcL LAB HEMETOLOGY METHOD 06/01/2024 8:22 AM [facility] RBC 3.70(L) 3.80 - 4.80 M/mcL LAB HEMETOLOGY METHOD 06/01/2024 8:22 AM [facility] Hemoglobin 9.5(L) 11.5 - 16.0 g/dL LAB HEMETOLOGY METHOD 06/01/2024 8:22 AM [facility] Hematocrit 31.2(L) 35.0 - 47.0 % LAB HEMETOLOGY METHOD 06/01/2024 8:22 AM [facility] MCV 84.3 79.0 - 98.0 FL LAB HEMETOLOGY METHOD 06/01/2024 8:22 AM [facility] MCH 25.7(L) 27.0 - 32.0 pcg LAB HEMETOLOGY METHOD 06/01/2024 8:22 AM [facility] MCHC 30.4(L) 32.0 - 37.0 g/dL LAB HEMETOLOGY METHOD 06/01/2024 8:22 AM [facility] RDW 20.8(H) 11.0 - 15.0 % LAB HEMETOLOGY METHOD 06/01/2024 8:22 AM [facility] Platelets 532(H) 130 - 400 K/mcL LAB HEMETOLOGY METHOD 06/01/2024 8:22 AM [facility] MPV 11.7(H) 7.0 - 11.0 FL LAB HEMETOLOGY METHOD 06/01/2024 8:22 AM EST [facility] NRBC 0.0 <1.0 % LAB HEMETOLOGY METHOD 06/01/2024 8:22 AM EST [facility] NRBC Absolute 0.00 <0.10 K/mcL LAB HEMETOLOGY METHOD 06/01/2024 8:22 AM EST [facility] Blood Venous blood specimen / Unknown Venipuncture / Unknown 06/01/2024 5:17 AM EST 06/01/2024 8:06 AM EST us Damien Kay MD LAB BLOOD ORDERABLES Final Resul t [facility] [address] [place] [address], documented in this encounter Visit Diagnoses Diagnosis Unspecified atrial fibrillation (CMS/HCC V24, CMS/HCC V28) Type 2 diabetes mellitus without complications (CMS/HCC V24, CMS/HCC V28) Heart failure, unspecified (CMS/HCC V24, CMS/HCC V28) Heart failure, unspecified documented in this encounter Care Teams Grinder Set Up Operator Internal Relationship Specialty Start Date End Date Damien Kay MD [address] [place] [address] [address] [place], [phone] PCP - General Family Medicine 07/05/24 documented as of this encounter
--- OUTSIDE RECORDS SUMMARY | 2024-08-31 15:19 | XMS_ITS | Encounter Summary ---
Author Organization [facility] Address [id number] [place] [id number] Care Team Providers Care Wait Staff Name Role Phone Damien Kay MD Primary Care Provider [phone] Encounter Details Date Type Department Care Team (Late st Contact Info) Description 04/15/2024 Lab Requisition [facility] - Main Lab [address] [facility] [place] [address] Damien Kay MD 38 [facility] [address] [place], [phone] Type 2 diabetes mellitus without complications [...] AM EST) WBC 12.1(H) 4.8 - 10.8 K/mcL LAB HEMETOLOGY METHOD 04/18/2024 8:34 AM [facility] RBC 4.30 3.80 - 4.80 M/mcL LAB HEMETOLOGY METHOD 04/18/2024 8:34 AM [facility] Hemoglobin 11.0(L) 11.5 - 16.0 g/dL LAB HEMETOLOGY METHOD 04/18/2024 8:34 AM [facility] Hematocrit 37.9 35.0 - 47.0 % LAB HEMETOLOGY METHOD 04/18/2024 8:34 AM [facility] MCV 88.1 79.0 - 98.0 FL LAB HEMETOLOGY METHOD 04/18/2024 8:34 AM [facility] MCH 25.6(L) 27.0 - 32.0 pcg LAB HEMETOLOGY METHOD 04/18/2024 8:34 AM [facility] MCHC 29.0(L) 32.0 - 37.0 g/dL LAB HEMETOLOGY METHOD 04/18/2024 8:34 AM [facility] RDW 17.4(H) 11.0 - 15.0 % LAB HEMETOLOGY METHOD 04/18/2024 8:34 AM [facility] Platelets 570(H) 130 - 400 K/mcL LAB HEMETOLOGY METHOD 04/18/2024 8:34 AM [facility] MPV 11.3(H) 7.0 - 11.0 FL LAB HEMETOLOGY METHOD 04/18/2024 8:34 AM [facility] NRBC 0.0 <1.0 % LAB HEMETOLOGY METHOD 04/18/2024 8:34 AM [facility] NRBC Absolute 0.00 <0.10 K/mcL LAB HEMETOLOGY METHOD 04/18/2024 8:34 AM [facility] Neutrophils Relative 77.9 % LAB HEMETOLOGY METHOD 04/18/2024 8:34 AM [facility] Lymphocytes Relative 12.1 % LAB HEMETOLOGY METHOD 04/18/2024 8:34 AM [facility] Monocytes Relative 8.1 % LAB HEMETOLOGY METHOD 04/18/2024 8:34 AM [facility] Eosinophils Relative 1.0 % LAB HEMETOLOGY METHOD 04/18/2024 8:34 AM [facility] Basophils Relative 0.5 % LAB HEMETOLOGY METHOD 04/18/2024 8:34 AM [facility] Immature Granulocytes Relative 0.4 % LAB HEMETOLOGY METHOD 04/18/2024 8:34 AM [facility] Neutrophils Absolute 9.41(H) 1.50 - 7.00 K/mcL LAB HEMETOLOGY METHOD 04/18/2024 8:34 AM [facility] Lymphocytes Absolute 1.46 1.00 - 5.00 K/mcL LAB HEMETOLOGY METHOD 04/18/2024 8:34 AM [facility] Monocytes Absolute 0.98 0.20 - 1.00 K/mcL LAB HEMETOLOGY METHOD 04/18/2024 8:34 AM [facility] Eosinophils Absolute 0.12 0.00 - 0.50 K/mcL LAB HEMETOLOGY METHOD 04/18/2024 8:34 AM [facility] Basophils Absolute 0.06 0.00 - 0.20 K/mcL LAB HEMETOLOGY METHOD 04/18/2024 8:34 AM [facility] Immature Granulocytes Absolute 0.05(H) 0.00 - 0.03 K/mcL LAB HEMETOLOGY METHOD 04/18/2024 8:34 AM [facility] Blood Venous blood specimen / Unknown Venipuncture / Unknown 04/18/2024 5:30 AM EST 04/18/2024 8:08 AM EST us Damien Kay MD LAB BLOOD ORDERABLES Final Resul t [facility] [address] [place] [address], [place] [phone] * (ABNORMAL) Comprehensive metabolic panel (04/18/2024 5:30 AM EST) Sodium 141 133 - 145 mmol/L LAB CHEMISTRY METHOD 04/18/2024 9:07 AM [facility] Potassium 4.4 3.5 - 5.5 mmol/L LAB CHEMISTRY METHOD 04/18/2024 9:07 AM [facility] Chloride 108 96 - 110 mmol/L LAB CHEMISTRY METHOD 04/18/2024 9:07 AM [facility] CO2 25 21 - 32 mmol/L LAB CHEMISTRY METHOD 04/18/2024 9:07 AM [facility] Anion Gap 8 3 - 11 LAB CHEMISTRY METHOD 04/18/2024 9:07 AM [facility] Glucose 126(H) 70 - 100 mg/dL LAB CHEMISTRY METHOD 04/18/2024 9:07 AM [facility] BUN 21 5 - 25 mg/dL LAB CHEMISTRY METHOD 04/18/2024 9:07 AM [facility] Creatinine 1.51(H) 0.50 - 1.10 mg/dL LAB CHEMISTRY METHOD 04/18/2024 9:07 AM [facility] eGFR 37(L) >=60 mL/min/1. 73m2 LAB CHEMISTRY METHOD 04/18/2024 9:07 AM [facility] Comment:Calculation based on the??Chronic Kidney Disease Epidemiology Collaboration (CKD-EPI) equation refit??without adjustment for race. BUN/Creatinine Ratio 13.9 LAB CHEMISTRY METHOD 04/18/2024 9:07 AM [facility] Calcium 9.8 8.5 - 10.5 mg/dL LAB CHEMISTRY METHOD 04/18/2024 9:07 AM [facility] AST (SGOT) 27 10 - 42 unit/L LAB CHEMISTRY METHOD 04/18/2024 9:07 AM [facility] ALT (SGPT) 24 10 - 60 unit/L LAB CHEMISTRY METHOD 04/18/2024 9:07 AM [facility] Alkaline Phosphatase 76 42 - 121 unit/L LAB CHEMISTRY METHOD 04/18/2024 9:07 AM [facility] Total Protein 7.0 6.0 - 8.0 g/dL LAB CHEMISTRY METHOD 04/18/2024 9:07 AM [facility] Albumin 3.1(L) 3.2 - 5.0 g/dL LAB CHEMISTRY METHOD 04/18/2024 9:07 AM [facility] Total Bilirubin 0.3 0.0 - 1.4 mg/dL LAB CHEMISTRY METHOD 04/18/2024 9:07 AM [facility] Blood Venous blood specimen / Unknown Venipuncture / Unknown 04/18/2024 5:30 AM EST 04/18/2024 8:08 AM EST us Damien Kay MD LAB BLOOD ORDERABLES Final Resul t [facility] [address] [place] [address], documented in this encounter Visit Diagnoses Diagnosis Type 2 diabetes mellitus without complications (CMS/HCC V24, CMS/HCC V28) documented in this encounter Care Teams Wait Staff Relationship Specialty Start Date End Date Damien Kay MD [address] [place] [address], [phone] PCP - General Family Medicine 07/05/24 documented as of this encounter
--- OUTSIDE RECORDS SUMMARY | 2024-08-31 15:19 | XMS_ITS | Encounter Summary ---
Author Organization [facility] Address [address] [place] [phone] Care Team Providers Care Revising Clerk Name Role Phone Damien Kay MD Primary Care Provider [phone] Encounter Details Date Type Department Care Team (Late st Contact Info) Description 06/07/2024 Lab Requisition [facility] - Main Lab 299 [facility] [place] [address] Damien Kay MD 38 [facility] [address] [place], [phone] Unspecified atrial fibrillation (CMS/HCC V24, CMS/HCC [...] mmol/L LAB CHEMISTRY METHOD 06/08/2024 2:17 PM [facility] Potassium 3.5 3.5 - 5.5 mmol/L LAB CHEMISTRY METHOD 06/08/2024 2:17 PM [facility] Chloride 108 96 - 110 mmol/L LAB CHEMISTRY METHOD 06/08/2024 2:17 PM [facility] CO2 27 21 - 32 mmol/L LAB CHEMISTRY METHOD 06/08/2024 2:17 PM [facility] Anion Gap 6 3 - 11 LAB CHEMISTRY METHOD 06/08/2024 2:17 PM [facility] Glucose 88 70 - 100 mg/dL LAB CHEMISTRY METHOD 06/08/2024 2:17 PM [facility] BUN 17 5 - 25 mg/dL LAB CHEMISTRY METHOD 06/08/2024 2:17 PM [facility] Creatinine 1.14(H) 0.50 - 1.10 mg/dL LAB CHEMISTRY METHOD 06/08/2024 2:17 PM [facility] eGFR 51(L) >=60 mL/min/1. 73m2 LAB CHEMISTRY METHOD 06/08/2024 2:17 PM [facility] Comment:Calculation based on the??Chronic Kidney Disease Epidemiology Collaboration (CKD-EPI) equation refit??without adjustment for race. BUN/Creatinine Ratio 14.9 LAB CHEMISTRY METHOD 06/08/2024 2:17 PM [facility] Calcium 8.5 8.5 - 10.5 mg/dL LAB CHEMISTRY METHOD 06/08/2024 2:17 PM [facility] Blood Venous blood specimen / Unknown Venipuncture / Unknown 06/08/2024 7:36 AM EST 06/08/2024 11:14 AM EST Damien Kay MD LAB BLOOD ORDERABLES Final Resul t [facility] [address] [place] [address], * (ABNORMAL) Complete blood count (06/08/2024 7:36 AM EST) WBC 9.0 4.8 - 10.8 K/mcL LAB HEMETOLOGY METHOD 06/08/2024 11:39 AM [facility] RBC 3.40(L) 3.80 - 4.80 M/mcL LAB HEMETOLOGY METHOD 06/08/2024 11:39 AM [facility] Hemoglobin 8.7(L) 11.5 - 16.0 g/dL LAB HEMETOLOGY METHOD 06/08/2024 11:39 AM [facility] Hematocrit 28.2(L) 35.0 - 47.0 % LAB HEMETOLOGY METHOD 06/08/2024 11:39 AM [facility] MCV 83.7 79.0 - 98.0 FL LAB HEMETOLOGY METHOD 06/08/2024 11:39 AM [facility] MCH 25.8(L) 27.0 - 32.0 pcg LAB HEMETOLOGY METHOD 06/08/2024 11:39 AM [facility] MCHC 30.9(L) 32.0 - 37.0 g/dL LAB HEMETOLOGY METHOD 06/08/2024 11:39 AM [facility] RDW 22.4(H) 11.0 - 15.0 % LAB HEMETOLOGY METHOD 06/08/2024 11:39 AM [facility] Platelets 579(H) 130 - 400 K/mcL LAB HEMETOLOGY METHOD 06/08/2024 11:39 AM [facility] MPV 10.8 7.0 - 11.0 FL LAB HEMETOLOGY METHOD 06/08/2024 11:39 AM EST [facility] NRBC 0.0 <1.0 % LAB HEMETOLOGY METHOD 06/08/2024 11:39 AM EST [facility] NRBC Absolute 0.00 <0.10 K/mcL LAB HEMETOLOGY METHOD 06/08/2024 11:39 AM EST [facility] Blood Venous blood specimen / Unknown Venipuncture / Unknown 06/08/2024 7:36 AM EST 06/08/2024 11:14 AM EST us Damien Kay MD LAB BLOOD ORDERABLES Final Resul t [facility] [address] [place] [address], documented in this encounter Visit Diagnoses Diagnosis Unspecified atrial fibrillation (CMS/HCC V24, CMS/HCC V28) Type 2 diabetes mellitus without complications (CMS/HCC V24, CMS/HCC V28) Heart failure, unspecified (CMS/HCC V24, CMS/HCC V28) Heart failure, unspecified documented in this encounter Care Teams Revising Clerk Relationship Specialty Start Date End Date Damien Kay MD [address] [place] [address], [phone] PCP - General Family Medicine 07/05/24 documented as of this encounter
--- NOTE | 2024-08-31 17:41 | PC.NURSE ---
Report called to [facility], spoke to YONATHAN Brantley. Informed on pt. status and updated her on transport. Pt. has eaten and drank coffee.
--- NOTE | 2024-08-31 18:45 | PC.NURSE ---
Report given to medical transport, IV taken out. Pt. upset d/t waiting in er hallway, pt. ripped out IV. Pt. smelled like urine and informed pt. if she needed to use restroom, she said no. Offered to check and change pt. Pt states Leave me alone, I am leaving.
== END 2024-08-31 18:52 | disposition skilled nursing facility (03) ==
PROVIDERS: Physician Assistant Medical; Emergency Provider Emergency Medicine
DX: D64.9 Anemia, unspecified (principal); I10 Essential (primary) hypertension; I48.0 Paroxysmal atrial fibrillation; Z79.01 Long term (current) use of anticoagulants; Z79.899 Other long term (current) drug therapy; Z03.818 Encounter for observation for suspected exposure to other biological agents ruled out
CPT/HCPCS: 0241U; 36415; 80053; 83735; 85025; 85610; 86850; 86900; 86901; 93005; 99283; 99285

== ENCOUNTER → 2024-08-31 12:44 | Outpatient (BNV) | payer MEDICARE, MEDICAID, SELFPAY | PROVIDERS: Emergency Provider Emergency Medicine; Visit Provider Internal Medicine Cardiovascular Disease | DX: R94.31 Abnormal electrocardiogram [ECG] [EKG] (principal); D64.9 Anemia, unspecified | CPT/HCPCS: 93010 ==

== ENCOUNTER 2024-09-22 10:58 | Inpatient (IN) | payer MEDICARE, MEDICAID, SELFPAY ==
[2024-09-22] VITALS (8 sets, daily range): BP systolic 123–176; BP diastolic 34–61; PULSE 63–68; RESP 13–16; TEMP 36.4–37.1; O2SAT 97–100; BMI 17.1
--- NOTE | 2024-09-22 | ECG_ITS ---
Test Reason : anemia Blood Pressure : */* mmHG Vent. Rate : 65 BPM Atrial Rate : 65 BPM P-R Int : 182 ms QRS Dur : 96 ms QT Int : 448 ms P-R-T Axes : -6 -37 61 degrees QTcB Int : 465 ms Normal sinus rhythm Left axis deviation Incomplete right bundle branch block Moderate voltage criteria for LVH, may be normal variant ( R in aVL , [place] product ) Nonspecific ST abnormality Abnormal ECG When compared with ECG of 31-Aug-2024 12:56, No significant changes seen Referred By: Generic ED Physician Electronically Signed By: GEORGE MUÑOZ
[2024-09-22 11:39] LABS: MANUAL DIFF FLAG NO
[2024-09-22 11:40] LABS: Basophils Absolute Auto 0.1 X10*3/uL (0.0-0.2); Eosinophils Percent Auto 0.4 % (0-4); Hematocrit 23.6 % (37.0-47.0); Hemoglobin 7.4 g/dl (12.0-16.0); Imm Gran Abs Auto 0.03 X10*3/uL (0.00-0.03); Imm Gran Pct Auto 0.4 % (0.0-0.4); Mean Corpuscular HGB Conc 31.4 g/dl (31.0-35.0); Mean Corpuscular Hemoglobin 27.5 pg (27.0-33.0); Mean Corpuscular Volume 87.7 fL (80.0-98.0); Mean Platelet Volume 10.6 fL (9.4-12.3); Monocytes Absolute Auto 0.6 X10*3/uL (0.1-1.2); Neutrophils Percent Auto 77.2 % (45-73); Platelet Count 515 X10*3/uL (160-400); Red Blood Count 2.69 X10*6/uL (4.20-5.50); White Blood Count 7.7 X10*3/uL (4.8-10.8)
--- NOTE | 2024-09-22 12:01 | ED.GENADULT ---
HPI - General Adult General Chief complaint: Recheck/Abnormal Lab/Rx Stated complaint: ABN LABS FROM SNF PER EMS Time Seen by Provider: 09/22/24 11:53 Source: patient, family, EMS and old records reviewed Mode of arrival: EMS Limitations: no limitations History of Present Illness ED Provider: DR. Erazo HPI narrative: 74-year-old female with PMH significant for be AFib on Eliquis, HLD, HTN, history of CVA with residual hemiplegia, [id number] type 2 diabetes, CKD 3, vascular dementia came in from correction for evaluation of low hemoglobin at the correction 6.1 and the patient looks pale, no obvious external bleed or hemorrhage, patient currently has no complaint, no CP, no abdominal pain, no blood in the stool. Related Data Home Medications ?Medication ?Instructions ?Recorded ?Confirmed apixaban 5 mg tablet (Eliquis) 5 mg PO BID 03/26/24 05/23/24 atorvastatin 80 mg tablet 80 mg PO BEDTIME 03/26/24 05/23/24 bisacodyl 10 mg rectal suppository 10 mg ME DAILY PRN Constipation 03/26/24 05/23/24 cholecalciferol (vitamin D3) 25 25 mcg PO DAILY 03/26/24 05/23/24 mcg (1,000 unit) tablet clotrimazole 1 % topical cream 1 appl topical DAILY PRN Rash 03/26/24 05/23/24 esomeprazole magnesium 40 mg 40 mg PO DAILY@0630 03/26/24 05/23/24 capsule,delayed release ferrous sulfate 325 mg (65 mg 325 mg PO DAILY 03/26/24 05/23/24 iron) tablet folic acid 1 mg tablet 1 mg PO DAILY 03/26/24 05/23/24 gabapentin 100 mg capsule 100 mg PO BEDTIME 03/26/24 05/23/24 loperamide 2 mg capsule 2 mg PO Q6H PRN Loose Stool 03/26/24 05/23/24 melatonin 5 mg tablet 10 mg PO BEDTIME 03/26/24 05/23/24 metformin 500 mg tablet 500 mg PO BID 03/26/24 05/23/24 omega 6-lwf-rrh-fish oil 1,000 mg 1 cap PO DAILY 03/26/24 05/23/24 (120 mg-180 mg) capsule (Fish Oil) sennosides 8.6 mg tablet (senna) 8.6 mg PO DAILY 03/26/24 05/23/24 sertraline 50 mg tablet 100 mg PO DAILY 03/26/24 05/23/24 sodium phosphates 19 gram-7 118 ml ME DAILY PRN Constipation 03/26/24 05/23/24 gram/118 mL enema (Fleet Enema) acetaminophen 325 mg tablet 650 mg PO Q6H PRN Fever Or Pain 04/22/24 05/23/24 famotidine 20 mg tablet (Pepcid) 20 mg PO DAILY@1200 04/22/24 05/23/24 mirtazapine 15 mg tablet (Remeron) See Rx Instructions .Route .COMPLEX 04/22/24 05/23/24 ondansetron HCl 4 mg tablet 4 mg PO TIDWM 04/22/24 05/23/24 Previous Rx's ?Medication ?Instructions ?Recorded amiodarone 200 mg tablet See Rx Instructions .Route 04/08/24 .COMPLEX #56 tabs empagliflozin 10 mg tablet 10 mg PO DAILY #30 tabs 04/08/24 (Jardiance) metoprolol tartrate 50 mg tablet 50 mg PO BID #60 tabs 04/08/24 furosemide 20 mg tablet 20 mg PO DAILY #60 tabs 04/26/24 sacubitril 24 mg-valsartan 26 mg 1 tab PO BID #60 tabs 04/26/24 tablet (Entresto) Allergies Allergy/AdvReac Type Severity Reaction Status Date / Time tuberculin, purified protein Allergy Unknown UNK Verified 09/22/24 11:23 deriva [TB TEST] aspirin [ASA] AdvReac Unknown GI UPSET, Verified 09/22/24 11:23 stomach upset Review of Systems Review of Systems: All other systems are reviewed and are negative Constitutional: Reports as per HPI and Reports no additional constitutional complaints Eyes: Reports as per HPI and Reports no additional eye complaints Reports system reviewed and no additional complaints, except as documented Cardiovascular: Reports as per HPI and Reports no additional cardiovascular complaints Respiratory: Reports as per HPI and Reports no additional respiratory complaints Gastrointestinal: Reports as per HPI and Reports no additional gastrointestinal complaints Genitourinary: Reports no additional female genitourinary complaints Musculoskeletal: Reports no additional musculoskeletal complaints Skin/Breast: Reports system reviewed and no additional complaints, except as docu Psychiatric: Reports no additional psychiatric complaints Endocrine: Reports no additional endocrine complaints Hematologic/Lymphatic: Reports no additional hematologic/lymphatic complaints Allergic/Immunologic: Reports no additional allergic/immunologic complaints Reports system reviewed and no additional complaints, except as documented and Reports Abnormal speech present [facility] Past Medical History Medical History Paroxysmal atrial fibrillation Cardiomyopathy Acute CHF Sepsis Anemia Pneumonia Social History Social History Household Members: Unknown / Unable to assess Housing: Shelter Do you presently have visiting nurse or other home services: No Unable to assess alcohol history related to: Unable to respond Patient Tobacco Use Status: Former Tobacco user Tobacco use type: Cigarette Smoked in Last 30 Days: No e-Cigarette/Vaping Use: Never Used Second Hand Smoke Exposure: No Use of substances other than those prescribed or required for medical reasons: Unable to respond Advance Directives: Yes Advance Directives on File: Yes Advance Directives Date on File: 04/11/24 Do you have a plan to hurt others: No Plan service: No Physical Exam ED Vital Signs: Vital Signs - 24 hr 09/22/24 11:22 09/22/24 14:17 Temperature 98.4 F 98.4 F Pulse Rate 68 63 Respiratory Rate 13 13 Blood Pressure 123/34 L 160/44 H Pulse Oximetry 97 98 Oxygen Delivery Method Room Air Room Air BMI result Body Mass Index 17.1 Vital signs have been reviewed and appear to be correct. Blood pressure elevated. Heart rate normal. Respiratory rate normal. Temperature normal. Oxygen saturation normal. Appearance: Alert. Oriented X3. No acute distress. Head: Normal external exam. Normocephalic. Atraumatic. No Gates signs noted. No raccoon eyes noted Eyes: PERRLA. EOMI. Conjunctiva and sclera normal. Eyelids normal. ENT: TM's Normal. Pharynx normal. Uvula midline. Moist mucous membranes. No trismus noted. No drooling noted. No muffled voice noted. Neck: Normal inspection. Neck supple. FROM. No adenopathy. Thyroid Normal. No meningeal signs. No neck mass noted. CVS: Normal heart rate and rhythm. Heart sound normal. No murmurs noted. Pulses normal throughout. Respiratory: No respiratory distress. Painless inspiration. Breath sounds normal. No wheezes/rales/rhonchi noted. Chest nontender. No accessory muscle usage noted or decreased air movement noted. Abdomen: Soft and nontender. Bowel sounds normal in all 4 quadrants. No distention noted. No organomegaly noted. No visible injury noted. Rectal exam: Brown stool, guaiac is negative. Back: No CVA tenderness. Full range of motion noted. Skin: Skin warm and dry. Normal skin color. Normal skin turgor. No rashes/lesions/lacerations noted. Extremities: No lower extremity edema. Extremities exhibit normal range of motion. Extremities nontender. Neuro: Oriented X 3. Cranial nerve exam: II-XII are grossly intact No motor deficit. No sensory deficit. Reflexes normal. Course Reevaluation(s) Reevaluation #1: 74-year-old female with positive blood in the stool, had a hemoglobin of 6.9 patient will get 1 unit of blood transfusion, consent was obtained from legal guardian over the phone. Will admit to the hospitalist service, transfuse 1 unit of blood. Time: 16:06 Medical Decision Making Differential Diagnosis Differential Diagnoses: The differential diagnosis associated with the presentation includes (Lower GI bleed, severe anemia, electrolyte derangement, coagulopathy.) Admission/Observation Consideration of admission/observation: Escalation of care including admission/observation considered Consult Healthcare Provider Management of the patient was discussed with: Hospitalist (Dr. Gomez) Lab Data MDM Lab Attestation statement: I reviewed the patient's lab results. 09/22/24 15:28 09/22/24 11:59 Labs: Lab Results 09/22/24 09/22/24 09/22/24 Range/Units 11:29 11:52 11:59 WBC 7.7 (4.8-10.8) X10*3/uL RBC 2.69 L (4.20-5.50) X10*6/uL Hgb 7.4 L (12.0-16.0) g/dl Hct 23.6 L (37.0-47.0) % MCV 87.7 (80.0-98.0) fL MCH 27.5 (27.0-33.0) pg MCHC 31.4 (31.0-35.0) g/dl RDW 17.0 H (11.0-16.0) % Plt Count 515 H (160-400) X10*3/uL MPV 10.6 (9.4-12.3) fL Immature Gran % (Auto) 0.4 (0.0-0.4) % Neut % (Auto) 77.2 H (45-73) % Lymph % (Auto) 13.0 L (20-40) % Calhoun % (Auto) 8.0 (2-11) % Eos % (Auto) 0.4 (0-4) % Baso % (Auto) 1.0 (0-2) % Lymph # (Auto) 1.0 L (1.2-4.9) X10*3/uL [place]oun # (Auto) 0.6 (0.1-1.2) X10*3/uL Eos # (Auto) 0.0 (0.0-0.4) X10*3/uL Baso # (Auto) 0.1 (0.0-0.2) X10*3/uL Abs Immat Gran (auto) 0.03 (0.00-0.03) X10*3/uL Absolute Neuts (auto) 6.0 (2.0-8.3) x10*3/uL Absolute Nucleated RBC 0.000 (0.0-0.012) X10*3/uL Nucleated RBC % (auto) 0.0 (0.0-0.2) /100WBC PT (10.9-12.4) SEC INR (0.9-1.1) Sodium 139 (135-145) mmol/L Potassium 4.1 (3.3-5.1) mmol/L Chloride 107 (96-108) mmol/L Carbon Dioxide 25 (22-29) mmol/L Anion Gap 11 L (12-20) BUN 14 (9-16) mg/dL Creatinine 0.81 (0.5-1.4) mg/dL Estim Creat Clear Calc 46.9 Estimated GFR > 60 POC Glucose 104 (60-115) mg/dL Random Glucose 111 (60-115) mg/dL Calcium 9.4 D (8.4-10.2) mg/dL Total Bilirubin 0.4 (0.0-1.0) mg/dL AST 41 H (5-31) U/L ALT 31 (0-31) U/L Alkaline Phosphatase 58 (39-117) U/L Troponin I High Sens 6.1 D (<3.5-17.0) ng/L B-Natriuretic Peptide 764 H (<100) pg/mL Total Protein 6.8 (6.5-8.0) g/dL Albumin 3.5 (3.5-5.0) g/dL Lipase 11 (8-78) U/L Stool Occult Blood (NEGATIVE) Blood Type A Positive Antibody Screen NEGATIVE 09/22/24 09/22/24 09/22/24 Range/Units 12:02 12:04 15:28 WBC 7.9 (4.8-10.8) X10*3/uL RBC 2.55 L (4.20-5.50) X10*6/uL Hgb 6.9 L* (12.0-16.0) g/dl Hct 22.2 L (37.0-47.0) % MCV 87.1 (80.0-98.0) fL MCH 27.1 (27.0-33.0) pg MCHC 31.1 (31.0-35.0) g/dl RDW 16.8 H (11.0-16.0) % Plt Count 508 H (160-400) X10*3/uL MPV 10.3 (9.4-12.3) fL Immature Gran % (Auto) 0.3 (0.0-0.4) % Neut % (Auto) 64.7 (45-73) % Lymph % (Auto) 21.1 (20-40) % Cal[place]oun % (Auto) 12.0 H (2-11) % Eos % (Auto) 0.8 (0-4) % Baso % (Auto) 1.1 (0-2) % Lymph # (Auto) 1.7 (1.2-4.9) X10*3/uL Cal[place]oun # (Auto) 0.9 (0.1-1.2) X10*3/uL Eos # (Auto) 0.1 (0.0-0.4) X10*3/uL Baso # (Auto) 0.1 (0.0-0.2) X10*3/uL Abs Immat Gran (auto) 0.02 (0.00-0.03) X10*3/uL Absolute Neuts (auto) 5.1 (2.0-8.3) x10*3/uL Absolute Nucleated RBC 0.000 (0.0-0.012) X10*3/uL Nucleated RBC % (auto) 0.0 (0.0-0.2) /100WBC PT 15.3 H (10.9-12.4) SEC INR 1.3 H (0.9-1.1) Sodium (135-145) mmol/L Potassium (3.3-5.1) mmol/L Chloride (96-108) mmol/L Carbon Dioxide (22-29) mmol/L Anion Gap (12-20) BUN (9-16) mg/dL Creatinine (0.5-1.4) mg/dL Estim Creat Clear Calc Estimated GFR POC Glucose (60-115) mg/dL Random Glucose (60-115) mg/dL Calcium (8.4-10.2) mg/dL Total Bilirubin (0.0-1.0) mg/dL AST (5-31) U/L ALT (0-31) U/L Alkaline Phosphatase (39-117) U/L Troponin I High Sens (<3.5-17.0) ng/L B-Natriuretic Peptide (<100) pg/mL Total Protein (6.5-8.0) g/dL Albumin (3.5-5.0) g/dL Lipase (8-78) U/L Stool Occult Blood POSITIVE (NEGATIVE) Blood Type Antibody Screen Discharge Plan Discharge Clinical Impression: Anemia, GI bleed Patient Disposition: Admitted As Inpatient Prescriptions: No Action metformin 500 mg tablet 500 mg PO BID atorvastatin 80 mg tablet 80 mg PO BEDTIME sennosides [senna] 8.6 mg Tablet 8.6 mg PO DAILY loperamide 2 mg capsule 2 mg PO Q6H PRN (Reason: Loose Stool) bisacodyl 10 mg Suppository 10 mg ME DAILY PRN (Reason: Constipation) ferrous sulfate 325 mg (65 mg iron) Tablet 325 mg PO DAILY esomeprazole magnesium 40 mg capsule,delayed release(DR/EC) 40 mg PO DAILY@0630 Fleet Enema 19-7 gram/118 mL Enema 118 ml ME DAILY PRN (Reason: Constipation) folic acid 1 mg Tablet 1 mg PO DAILY gabapentin 100 mg capsule 100 mg PO BEDTIME clotrimazole 1 % Cream 1 appl TOPICAL DAILY PRN (Reason: Rash) Rx Instructions: apply to groin sertraline 50 mg tablet 100 mg PO DAILY cholecalciferol (vitamin D3) 25 mcg (1,000 unit) Tablet 25 mcg PO DAILY melatonin 5 mg Tablet 10 mg PO BEDTIME omega 6-hya-wbl-fish oil [Fish Oil] 1,000 mg (120 mg-180 mg) Capsule 1 cap PO DAILY Eliquis 5 mg tablet 5 mg PO BID amiodarone 200 mg Tablet See Rx Instructions .ROUTE .COMPLEX Qty: 56 0RF Rx Instructions: 200 mg twice daily for 28 days till 05/06/24, then 200 mg once daily starting 05/07/24 metoprolol tartrate 50 mg Tablet 50 mg PO BID Qty: 60 0RF Protocol: Hold for SBP/HR < HOLD for SBP < : 90 HOLD for HR < : 60 Jardiance 10 mg Tablet 10 mg PO DAILY Qty: 30 0RF acetaminophen 325 mg Tablet 650 mg PO Q6H PRN (Reason: Fever Or Pain) ondansetron HCl 4 mg Tablet 4 mg PO TIDWM famotidine [Pepcid] 20 mg Tablet 20 mg PO DAILY@1200 mirtazapine [Remeron] 15 mg Tablet See Rx Instructions .ROUTE .COMPLEX Rx Instructions: Give 7.5 mg at bedtime for 7 days (until 04/29/24), Then give 15 mg at bedtime start 04/30/24 furosemide 20 mg Tablet 20 mg PO DAILY Qty: 60 0RF Protocol: Hold for SBP< HOLD for SBP < : 90 sacubitril-valsartan [Entresto] 24-26 mg Tablet 1 tab PO BID Qty: 60 0RF Protocol: Hold for SBP< HOLD for SBP < : 90 Print Language: [place]
[2024-09-22 12:02] LABS: Glucose, Whole Blood 104 mg/dL (60-115)
[2024-09-22 12:13] LABS: OBS Int Ctl Valid YES; OBS1 POSITIVE (NEGATIVE)
[2024-09-22 12:16] LABS: INTERNATIONAL NORM RATIO 1.3 (0.9-1.1); Prothrombin Time 15.3 SEC (10.9-12.4)
[2024-09-22 12:26] LABS: Alanine Aminotransferase 31 U/L (0-31); Albumin Level 3.5 g/dL (3.5-5.0); Alkaline Phosphatase 58 U/L (39-117); Anion Gap 11 (12-20); Aspartate Amino Transferase 41 U/L (5-31); Bilirubin Total 0.4 mg/dL (0.0-1.0); Blood Urea Nitrogen 14 mg/dL (9-16); Calcium 9.4 mg/dL (8.4-10.2); Carbon Dioxide 25 mmol/L (22-29); Chloride 107 mmol/L (96-108); Creatinine Clr Calc Pharmacy 46.9; Estimated Glomerular Filt Rate > 60; Glucose Random 111 mg/dL (60-115); Lipase 11 U/L (8-78); Potassium 4.1 mmol/L (3.3-5.1); Sodium 139 mmol/L (135-145); Total Protein 6.8 g/dL (6.5-8.0)
[2024-09-22 12:32] LABS: B Type Natriuretic Peptide 764 pg/mL (<100)
[2024-09-22 12:32] LABS: Troponin-I High Sensitivity 6.1 ng/L (<3.5-17.0)
--- OUTSIDE RECORDS SUMMARY | 2024-09-22 13:09 | XMS_ITS | Encounter Summary ---
Author Organization [facility] Address [address] [place] [phone] Care Team Providers Care Plant Specialist Name Role Phone Damien Kay MD Primary Care Provider [phone] Encounter Details Date Type Department Care Team (Late st Contact Info) Description 08/02/2024 Lab Requisition [facility] - Main Lab [address] [facility] [place] [address] Damien Kay MD 38 [facility] [address] [place], [address] Heart failure, unspecified (CMS/HCC V24, CMS/HCC [...] natriuretic peptide (08/03/2024 8:35 AM EDT) Pathologist [facility] BNP 457(H) <=100 pcg/mL LAB CHEMISTRY METHOD 08/03/2024 11:31 AM EDT [facility] Blood Venous blood specimen / Unknown Venipuncture / Unknown 08/03/2024 8:35 AM EDT 08/03/2024 10:45 AM EDT us Damien Kay MD LAB BLOOD ORDERABLES Final Resul t [facility] [address] [place] [address], [place] [phone] * (ABNORMAL) Basic metabolic panel (08/03/2024 8:35 AM EDT) [facility] Sodium 144 133 - 145 mmol/L LAB CHEMISTRY METHOD 08/03/2024 12:30 PM [facility] Potassium 3.3(L) 3.5 - 5.5 mmol/L LAB CHEMISTRY METHOD 08/03/2024 12:30 PM [facility] Chloride 111(H) 96 - 110 mmol/L LAB CHEMISTRY METHOD 08/03/2024 12:30 PM [facility] CO2 24 21 - 32 mmol/L LAB CHEMISTRY METHOD 08/03/2024 12:30 PM [facility] Anion Gap 9 3 - 11 LAB CHEMISTRY METHOD 08/03/2024 12:30 PM [facility] Glucose 77 70 - 100 mg/dL LAB CHEMISTRY METHOD 08/03/2024 12:30 PM [facility] BUN 10 5 - 25 mg/dL LAB CHEMISTRY METHOD 08/03/2024 12:30 PM [facility] Creatinine 0.77 0.50 - 1.10 mg/dL LAB CHEMISTRY METHOD 08/03/2024 12:30 PM EDT [facility] eGFR 82 >=60 mL/min/1. 73m2 LAB CHEMISTRY METHOD 08/03/2024 12:30 PM EDT [facility] Comment:Calculation based on the??Chronic Kidney Disease Epidemiology Collaboration (CKD-EPI) equation refit??without adjustment for race. BUN/Creatinine Ratio 13.0 LAB CHEMISTRY METHOD 08/03/2024 12:30 PM EDT [facility] Calcium 8.4(L) 8.5 - 10.5 mg/dL LAB CHEMISTRY METHOD 08/03/2024 12:30 PM EDT [facility] Blood Venous blood specimen / Unknown Venipuncture / Unknown 08/03/2024 8:35 AM EDT 08/03/2024 10:45 AM EDT us Damien Kay MD LAB BLOOD ORDERABLES Final Resul t [facility] [address] [place] [address], * (ABNORMAL) Complete blood count (08/03/2024 8:35 AM EDT) WBC 6.5 4.8 - 10.8 K/mcL LAB HEMETOLOGY METHOD 08/03/2024 11:11 AM EDT [facility] RBC 2.70(L) 3.80 - 4.80 M/mcL LAB HEMETOLOGY METHOD 08/03/2024 11:11 AM EDT [facility] Hemoglobin 8.4(L) 11.5 - 16.0 g/dL LAB HEMETOLOGY METHOD 08/03/2024 11:11 AM [facility] Hematocrit 26.3(L) 35.0 - 47.0 % LAB HEMETOLOGY METHOD 08/03/2024 11:11 AM EDT [facility] MCV 96.3 79.0 - 98.0 FL LAB HEMETOLOGY METHOD 08/03/2024 11:11 AM EDT [facility] MCH 30.8 27.0 - 32.0 pcg LAB HEMETOLOGY METHOD 08/03/2024 11:11 AM EDT [facility] MCHC 31.9(L) 32.0 - 37.0 g/dL LAB HEMETOLOGY METHOD 08/03/2024 11:11 AM EDT [facility] RDW 16.5(H) 11.0 - 15.0 % LAB HEMETOLOGY METHOD 08/03/2024 11:11 AM EDT [facility] Platelets 472(H) 130 - 400 K/mcL LAB HEMETOLOGY METHOD 08/03/2024 11:11 AM EDT [facility] MPV 10.9 7.0 - 11.0 FL LAB HEMETOLOGY METHOD 08/03/2024 11:11 AM EDT [facility] NRBC 0.0 <1.0 % LAB HEMETOLOGY METHOD 08/03/2024 11:11 AM EDT [facility] NRBC Absolute 0.00 <0.10 K/mcL LAB HEMETOLOGY METHOD 08/03/2024 11:11 AM T [facility] Blood Venous blood specimen / Unknown Venipuncture / Unknown 08/03/2024 8:35 AM EDT 08/03/2024 10:45 AM EDT us Damien Kay MD LAB BLOOD ORDERABLES Final Resul t [facility] [address] [place] [address], documented in this encounter Visit Diagnoses Diagnosis Heart failure, unspecified (CMS/HCC V24, CMS/HCC V28) Heart failure, unspecified Sepsis, unspecified organism (CMS/HCC V24, CMS/HCC V28) Hyperlipidemia, unspecified documented in this encounter Care Teams Plant Specialist Relationship Specialty Start Date End Date Damien Kay MD [address] [place] [address], [phone] PCP - General Family Medicine 07/05/24 documented as of this encounter
--- OUTSIDE RECORDS SUMMARY | 2024-09-22 13:09 | XMS_ITS | Encounter Summary ---
Author Organization [facility] Address [address] [place] [phone] Care Team Providers Care Mobile Sales Assistant Name Role Phone Damien Kay MD Primary Care Provider [phone] Encounter Details Date Type Department Care Team (Late st Contact Info) Description 06/14/2024 Lab Requisition [facility] - Main Lab 299 [facility] [place] [address] Damien Kay MD 38 [facility] [address] [place], [phone] Hyperlipidemia, unspecified; Sepsis, unspecified organism (CMS/HCC [...] Resul t [facility] [address] [place] [address], * Basic metabolic panel (06/15/2024 8:03 AM [...] LAB CHEMISTRY METHOD 06/15/2024 12:40 PM EST [facility] BUN 10 5 - [...] Resul t [facility] [address] [place] [address], * (ABNORMAL) Complete blood count (06/15/2024 8:03 [...] Resul t [facility] [address] [place] [address], documented in this encounter Visit Diagnoses Diagnosis Hyperlipidemia, unspecified Sepsis, unspecified organism ([facility] V24, [facility] V28) Unspecified atrial fibrillation ([facility] [place]24, [facility] V28) Type 2 diabetes mellitus without complications ([facility] V24, [facility] V28) Heart failure, unspecified ([facility] V24, [facility] V28) Heart failure, unspecified documented in this encounter Care Teams Mobile Sales Assistant Relationship Specialty Start Date End Date Damien Kay MD [address] [place] [address], [phone] PCP - General Family Medicine 07/05/24 documented as of this encounter
--- OUTSIDE RECORDS SUMMARY | 2024-09-22 13:10 | XMS_ITS | Encounter Summary ---
Author Organization [facility] Address [address] [place] [phone] Care Team Providers Care Allocations Clerk Name Role Phone Damien Kay MD Primary Care Provider [phone] Encounter Details Date Type Department Care Team (Late st Contact Info) Description 05/14/[address] [facility] - Main Lab 299 [facility] [place] [address] Damien Kay MD 38 [facility] [address] [place], [phone] Type 2 diabetes mellitus without complications [...] K/mcL LAB HEMETOLOGY METHOD 05/16/2024 9:23 AM [facility] RBC 3.90 3.80 - 4.80 M/mcL LAB HEMETOLOGY METHOD 05/16/2024 9:23 AM [facility] Hemoglobin 9.9(L) 11.5 - 16.0 g/dL LAB HEMETOLOGY METHOD 05/16/2024 9:23 AM [facility] Hematocrit 33.8(L) 35.0 - 47.0 % LAB HEMETOLOGY METHOD 05/16/2024 9:23 AM [facility] MCV 87.8 79.0 - 98.0 FL LAB HEMETOLOGY METHOD 05/16/2024 9:23 AM [facility] MCH 25.7(L) 27.0 - 32.0 pcg LAB HEMETOLOGY METHOD 05/16/2024 9:23 AM [facility] MCHC 29.3(L) 32.0 - 37.0 g/dL LAB HEMETOLOGY METHOD 05/16/2024 9:23 AM [facility] RDW 19.8(H) 11.0 - 15.0 % LAB HEMETOLOGY METHOD 05/16/2024 9:23 AM [facility] Platelets 729(H) 130 - 400 K/mcL LAB HEMETOLOGY METHOD 05/16/2024 9:23 AM [facility] MPV 10.7 7.0 - 11.0 FL LAB HEMETOLOGY METHOD 05/16/2024 9:23 AM [facility] NRBC 0.0 <1.0 % LAB HEMETOLOGY METHOD 05/16/2024 9:23 AM [facility] NRBC Absolute 0.00 <0.10 K/mcL LAB HEMETOLOGY METHOD 05/16/2024 9:23 AM [facility] Neutrophils Relative 71.2 % LAB HEMETOLOGY METHOD 05/16/2024 9:23 AM [facility] Lymphocytes Relative 16.4 % LAB HEMETOLOGY METHOD 05/16/2024 9:23 AM [facility] Monocytes Relative 8.1 % LAB HEMETOLOGY METHOD 05/16/2024 9:23 AM [facility] Eosinophils Relative 2.3 % LAB HEMETOLOGY METHOD 05/16/2024 9:23 AM [facility] Basophils Relative 1.2 % LAB HEMETOLOGY METHOD 05/16/2024 9:23 AM [facility] Immature Granulocytes Relative 0.8 % LAB HEMETOLOGY METHOD 05/16/2024 9:23 AM [facility] Neutrophils Absolute 7.95(H) 1.50 - 7.00 K/mcL LAB HEMETOLOGY METHOD 05/16/2024 9:23 AM [facility] Lymphocytes Absolute 1.83 1.00 - 5.00 K/mcL LAB HEMETOLOGY METHOD 05/16/2024 9:23 AM [facility] Monocytes Absolute 0.91 0.20 - 1.00 K/mcL LAB HEMETOLOGY METHOD 05/16/2024 9:23 AM [facility] Eosinophils Absolute 0.26 0.00 - 0.50 K/mcL LAB HEMETOLOGY METHOD 05/16/2024 9:23 AM [facility] Basophils Absolute 0.13 0.00 - 0.20 K/mcL LAB HEMETOLOGY METHOD 05/16/2024 9:23 AM [facility] Immature Granulocytes Absolute 0.09(H) 0.00 - 0.03 K/mcL LAB HEMETOLOGY METHOD 05/16/2024 9:23 AM [facility] Blood Venous blood specimen / Unknown Venipuncture / Unknown 05/16/2024 4:53 AM EST 05/16/2024 8:29 AM EST us Damien Kay MD LAB BLOOD ORDERABLES Final Resul t [facility] [address] [place] [address], [place] [phone] * (ABNORMAL) Comprehensive metabolic panel (05/16/2024 4:53 AM EST) Sodium 135 133 - 145 mmol/L LAB CHEMISTRY METHOD 05/16/2024 9:46 AM [facility] Potassium 4.0 3.5 - 5.5 mmol/L LAB CHEMISTRY METHOD 05/16/2024 9:46 AM [facility] Chloride 100 96 - 110 mmol/L LAB CHEMISTRY METHOD 05/16/2024 9:46 AM [facility] CO2 24 21 - 32 mmol/L LAB CHEMISTRY METHOD 05/16/2024 9:46 AM [facility] Anion Gap 11 3 - 11 LAB CHEMISTRY METHOD 05/16/2024 9:46 AM [facility] Glucose 87 70 - 100 mg/dL LAB CHEMISTRY METHOD 05/16/2024 9:46 AM [facility] BUN 47(H) 5 - 25 mg/dL LAB CHEMISTRY METHOD 05/16/2024 9:46 AM [facility] Creatinine 2.14(H) 0.50 - 1.10 mg/dL LAB CHEMISTRY METHOD 05/16/2024 9:46 AM [facility] eGFR 24(L) >=60 mL/min/1. 73m2 LAB CHEMISTRY METHOD 05/16/2024 9:46 AM [facility] Comment:Calculation based on the??Chronic Kidney Disease Epidemiology Collaboration (CKD-EPI) equation refit??without adjustment for race. BUN/Creatinine Ratio 22.0 LAB CHEMISTRY METHOD 05/16/2024 9:46 AM [facility] Calcium 8.8 8.5 - 10.5 mg/dL LAB CHEMISTRY METHOD 05/16/2024 9:46 AM [facility] AST (SGOT) 31 10 - 42 unit/L LAB CHEMISTRY METHOD 05/16/2024 9:46 AM [facility] ALT (SGPT) 22 10 - 60 unit/L LAB CHEMISTRY METHOD 05/16/2024 9:46 AM [facility] Alkaline Phosphatase 76 42 - 121 unit/L LAB CHEMISTRY METHOD 05/16/2024 9:46 AM [facility] Total Protein 6.2 6.0 - 8.0 g/dL LAB CHEMISTRY METHOD 05/16/2024 9:46 AM [facility] Albumin 2.2(L) 3.2 - 5.0 g/dL LAB CHEMISTRY METHOD 05/16/2024 9:46 AM [facility] Total Bilirubin 0.2 0.0 - 1.4 mg/dL LAB CHEMISTRY METHOD 05/16/2024 9:46 AM [facility] Blood Venous blood specimen / Unknown Venipuncture / Unknown 05/16/2024 4:53 AM EST 05/16/2024 8:29 AM EST us Damien Kay MD LAB BLOOD ORDERABLES Final Resul t [facility] [address] [place] [address], documented in this encounter Visit Diagnoses Diagnosis Type 2 diabetes mellitus without complications (CMS/HCC V24, CMS/HCC V28) documented in this encounter Care Teams Allocations Clerk Relationship Specialty Start Date End Date Damien Kay MD [address] [place] [address], [phone] PCP - General Family Medicine 07/05/24 documented as of this encounter
--- OUTSIDE RECORDS SUMMARY | 2024-09-22 13:10 | XMS_ITS | Encounter Summary ---
Author Organization [facility] Address [address] [place] [phone] Care Team Providers Care Processing Specialist Name Role Phone Damien Kay MD Primary Care Provider [phone] Encounter Details Date Type Department Care Team (Late st Contact Info) Description 05/04/2024 Lab Requisition [facility] - Main Lab [address] [place] [address] Damien Kay MD 38 [facility] [address] [place], [phone] Pneumonia, unspecified organism; Unspecified atrial fibrillation [...] mmol/L LAB CHEMISTRY METHOD 05/04/2024 11:33 AM [facility] Potassium 4.2 3.5 - 5.5 mmol/L LAB CHEMISTRY METHOD 05/04/2024 11:33 AM [facility] Chloride 103 96 - 110 mmol/L LAB CHEMISTRY METHOD 05/04/2024 11:33 AM [facility] CO2 27 21 - 32 mmol/L LAB CHEMISTRY METHOD 05/04/2024 11:33 AM [facility] Anion Gap 9 3 - 11 LAB CHEMISTRY METHOD 05/04/2024 11:33 AM [facility] Glucose 101(H) 70 - 100 mg/dL LAB CHEMISTRY METHOD 05/04/2024 11:33 AM [facility] BUN 24 5 - 25 mg/dL LAB CHEMISTRY METHOD 05/04/2024 11:33 AM [facility] Creatinine 1.39(H) 0.50 - 1.10 mg/dL LAB CHEMISTRY METHOD 05/04/2024 11:33 AM [facility] eGFR 40(L) >=60 mL/min/1. 73m2 LAB CHEMISTRY METHOD 05/04/2024 11:33 AM [facility] Comment:Calculation based on the??Chronic Kidney Disease Epidemiology Collaboration (CKD-EPI) equation refit??without adjustment for race. BUN/Creatinine Ratio 17.3 LAB CHEMISTRY METHOD 05/04/2024 11:33 AM EST [facility] Calcium 9.3 8.5 - 10.5 mg/dL LAB CHEMISTRY METHOD 05/04/2024 11:33 AM EST [facility] Blood Venous blood specimen / Unknown Venipuncture / Unknown 05/04/2024 7:19 AM EST 05/04/2024 9:56 AM EST us Dmaien Kay MD LAB BLOOD ORDERABLES Final Resul t [facility] [address] [place] [address], [place] [phone] * (ABNORMAL) Complete blood count (05/04/2024 7:19 AM EST) WBC 9.5 4.8 - 10.8 K/mcL LAB HEMETOLOGY METHOD 05/04/2024 10:45 AM [facility] RBC 3.80 3.80 - 4.80 M/mcL LAB HEMETOLOGY METHOD 05/04/2024 10:45 AM [facility] Hemoglobin 9.7(L) 11.5 - 16.0 g/dL LAB HEMETOLOGY METHOD 05/04/2024 10:45 AM [facility] Hematocrit 32.1(L) 35.0 - 47.0 % LAB HEMETOLOGY METHOD 05/04/2024 10:45 AM [facility] MCV 84.7 79.0 - 98.0 FL LAB HEMETOLOGY METHOD 05/04/2024 10:45 AM [facility] MCH 25.6(L) 27.0 - 32.0 pcg LAB HEMETOLOGY METHOD 05/04/2024 10:45 AM [facility] MCHC 30.2(L) 32.0 - 37.0 g/dL LAB HEMETOLOGY METHOD 05/04/2024 10:45 AM EST [facility] RDW 18.4(H) 11.0 - 15.0 % LAB HEMETOLOGY METHOD 05/04/2024 10:45 AM [facility] Platelets 477(H) 130 - 400 K/mcL LAB HEMETOLOGY METHOD 05/04/2024 10:45 AM EST [facility] MPV 10.5 7.0 - 11.0 FL LAB HEMETOLOGY METHOD 05/04/2024 10:45 AM EST [facility] NRBC 0.0 <1.0 % LAB HEMETOLOGY METHOD 05/04/2024 10:45 AM [facility] NRBC Absolute 0.00 <0.10 K/mcL LAB HEMETOLOGY METHOD 05/04/2024 10:45 AM [facility] Blood Venous blood specimen / Unknown Venipuncture / Unknown 05/04/2024 7:19 AM EST 05/04/2024 9:56 AM EST Damien Kay MD LAB BLOOD ORDERABLES Final Resul t [facility] [address] [place] [address], documented in this encounter Visit Diagnoses Diagnosis Pneumonia, unspecified organism Unspecified atrial fibrillation ([facility] V24, [facility] V28) Unspecified dementia, unspecified severity, without behavioral disturbance, psychotic disturbance, mood disturbance, and anxiety ([facility] V24, [facility] V28) Type 2 diabetes mellitus without complications ([facility] V24, [facility] V28) Heart failure, unspecified ([facility] V24, [facility] V28) Heart failure, unspecified Sepsis, unspecified organism ([facility] V24, [facility] V28) documented in this encounter Care Teams Processing Specialist Relationship Specialty Start Date End Date Damien Kay MD [address] [place] [address] [address] [place], [phone] PCP - General Family Medicine 07/05/24 documented as of this encounter
--- OUTSIDE RECORDS SUMMARY | 2024-09-22 13:10 | XMS_ITS | Encounter Summary ---
Author Organization [facility] Address [address] [place] [phone] Care Team Providers Care Ceramics Teacher Name Role Phone Damien Kay MD Primary Care Provider [phone] Encounter Details Date Type Department Care Team (Latest Contact Info) Description 06/28/2024 Lab Requisition [facility] - Main Lab 299 [facility] [place] [address] Damien Kay MD 38 [facility] [address] [place], [phone] Heart failure, unspecified (CMS/HCC V24, CMS/HCC [...] CBC auto differential (06/29/2024 6:37 AM EST) [facility] WBC 9.5 4.8 - 10.8 K/mcL LAB HEMETOLOGY METHOD 06/29/2024 11:49 AM [facility] RBC 2.90(L) 3.80 - 4.80 M/mcL LAB HEMETOLOGY METHOD 06/29/2024 11:49 AM [facility] Hemoglobin 8.1(L) 11.5 - 16.0 g/dL LAB HEMETOLOGY METHOD 06/29/2024 11:49 AM [facility] Hematocrit 26.9(L) 35.0 - 47.0 % LAB HEMETOLOGY METHOD 06/29/2024 11:49 AM [facility] MCV 92.1 79.0 - 98.0 FL LAB HEMETOLOGY METHOD 06/29/2024 11:49 AM [facility] MCH 27.7 27.0 - 32.0 pcg LAB HEMETOLOGY METHOD 06/29/2024 11:49 AM [facility] MCHC 30.1(L) 32.0 - 37.0 g/dL LAB HEMETOLOGY METHOD 06/29/2024 11:49 AM [facility] RDW 26.9(H) 11.0 - 15.0 % LAB HEMETOLOGY METHOD 06/29/2024 11:49 AM [facility] Platelets 464(H) 130 - 400 K/mcL LAB HEMETOLOGY METHOD 06/29/2024 11:49 AM [facility] MPV 10.8 7.0 - 11.0 FL LAB HEMETOLOGY METHOD 06/29/2024 11:49 AM [facility] NRBC 0.0 <1.0 % LAB HEMETOLOGY METHOD 06/29/2024 11:49 AM [facility] NRBC Absolute 0.00 <0.10 K/mcL LAB HEMETOLOGY METHOD 06/29/2024 11:49 AM [facility] Neutrophils Relative 66.8 % LAB HEMETOLOGY METHOD 06/29/2024 11:49 AM [facility] Lymphocytes Relative 20.1 % LAB HEMETOLOGY METHOD 06/29/2024 11:49 AM [facility] Monocytes Relative 10.7 % LAB HEMETOLOGY METHOD 06/29/2024 11:49 AM [facility] Eosinophils Relative 0.8 % LAB HEMETOLOGY METHOD 06/29/2024 11:49 AM [facility] Basophils Relative 1.0 % LAB HEMETOLOGY METHOD 06/29/2024 11:49 AM [facility] Immature Granulocytes Relative 0.6 % LAB HEMETOLOGY METHOD 06/29/2024 11:49 AM [facility] Neutrophils Absolute 6.35 1.50 - 7.00 K/mcL LAB HEMETOLOGY METHOD 06/29/2024 11:49 AM [facility] Lymphocytes Absolute 1.92 1.00 - 5.00 K/mcL LAB HEMETOLOGY METHOD 06/29/2024 11:49 AM EST [facility] Monocytes Absolute 1.02(H) 0.20 - 1.00 K/mcL LAB HEMETOLOGY METHOD 06/29/2024 11:49 AM EST [facility] Eosinophils Absolute 0.08 0.00 - 0.50 K/[facility] LAB HEMETOLOGY METHOD 06/29/2024 11:49 AM EST [facility] Basophils Absolute 0.10 0.00 - 0.20 K/[facility] LAB HEMETOLOGY METHOD 06/29/2024 11:49 AM EST [facility] Immature Granulocytes Absolute 0.06(H) 0.00 - 0.03 K/[facility] LAB HEMETOLOGY METHOD 06/29/2024 11:49 AM EST [facility] Blood Venous blood specimen / Unknown Venipuncture / Unknown 06/29/2024 6:37 AM EST 06/29/2024 10:55 AM EST us Damien Kay MD LAB BLOOD ORDERABLES Final Resul t Performing Organization Address City/[facility]/ZIP Co de Phone Number [facility] [address] [place] [address], * (ABNORMAL) B-type natriuretic peptide (06/29/2024 6:37 AM EST) BNP 328(H) <=100 pcg/mL LAB CHEMISTRY METHOD 06/29/2024 12:01 PM EST [facility] Blood Venous blood specimen / Unknown Venipuncture / Unknown 06/29/2024 6:37 AM EST 06/29/2024 10:55 AM EST us Damien Kay MD LAB BLOOD ORDERABLES Final Resul t [facility] [address] [place] [address], [place] [phone] * (ABNORMAL) Basic metabolic panel (06/29/2024 6:37 AM EST) Sodium 141 133 - 145 mmol/L LAB CHEMISTRY METHOD 06/29/2024 11:57 AM [facility] Potassium 4.7 3.5 - 5.5 mmol/L LAB CHEMISTRY METHOD 06/29/2024 11:57 AM [facility] Chloride 109 96 - 110 mmol/L LAB CHEMISTRY METHOD 06/29/2024 11:57 AM [facility] CO2 26 21 - 32 mmol/L LAB CHEMISTRY METHOD 06/29/2024 11:57 AM [facility] Anion Gap 6 3 - 11 LAB CHEMISTRY METHOD 06/29/2024 11:57 AM [facility] Glucose 83 70 - 100 mg/dL LAB CHEMISTRY METHOD 06/29/2024 11:57 AM [facility] BUN 14 5 - 25 mg/dL LAB CHEMISTRY METHOD 06/29/2024 11:57 AM [facility] Creatinine 1.02 0.50 - 1.10 mg/dL LAB CHEMISTRY METHOD 06/29/2024 11:57 AM [facility] eGFR 59(L) >=60 mL/min/1. 73m2 LAB CHEMISTRY METHOD 06/29/2024 11:57 AM [facility] Comment:Calculation based on the??Chronic Kidney Disease Epidemiology Collaboration (CKD-EPI) equation refit??without adjustment for race. BUN/Creatinine Ratio 13.7 LAB CHEMISTRY METHOD 06/29/2024 11:57 AM [facility] Calcium 8.8 8.5 - 10.5 mg/dL LAB CHEMISTRY METHOD 06/29/2024 11:57 AM [facility] Blood Venous blood specimen / Unknown Venipuncture / Unknown 06/29/2024 6:37 AM EST 06/29/2024 10:55 AM EST us Damien Kay MD LAB BLOOD ORDERABLES Final Resul t [facility] [address] [place] [address], [place] [phone] * (ABNORMAL) Complete blood count (06/29/2024 6:37 AM EST) WBC 9.5 4.8 - 10.8 K/mcL LAB HEMETOLOGY METHOD 06/29/2024 11:49 AM [facility] RBC 2.90(L) 3.80 - 4.80 M/mcL LAB HEMETOLOGY METHOD 06/29/2024 11:49 AM [facility] Hemoglobin 8.1(L) 11.5 - 16.0 g/dL LAB HEMETOLOGY METHOD 06/29/2024 11:49 AM [facility] Hematocrit 26.9(L) 35.0 - 47.0 % LAB HEMETOLOGY METHOD 06/29/2024 11:49 AM [facility] MCV 92.1 79.0 - 98.0 FL LAB HEMETOLOGY METHOD 06/29/2024 11:49 AM [facility] MCH 27.7 27.0 - 32.0 pcg LAB HEMETOLOGY METHOD 06/29/2024 11:49 AM [facility] MCHC 30.1(L) 32.0 - 37.0 g/dL LAB HEMETOLOGY METHOD 06/29/2024 11:49 AM [facility] RDW 26.9(H) 11.0 - 15.0 % LAB HEMETOLOGY METHOD 06/29/2024 11:49 AM [facility] Platelets 464(H) 130 - 400 K/mcL LAB HEMETOLOGY METHOD 06/29/2024 11:49 AM [facility] MPV 10.8 7.0 - 11.0 FL LAB HEMETOLOGY METHOD 06/29/2024 11:49 AM EST [facility] NRBC 0.0 <1.0 % LAB [facility] METHOD 06/29/2024 11:49 AM EST [facility] NRBC Absolute 0.00 <0.10 K/mcL LAB HEMETOLOG METHOD 06/29/2024 11:49 AM EST [facility] Blood Venous blood specimen / Unknown Venipuncture / Unknown 06/29/2024 6:37 AM EST 06/29/2024 10:55 AM EST us Damien Kay MD LAB BLOOD ORDERABLES Final Resul t [facility] [address] [place] [address], documented in this encounter Visit Diagnoses Diagnosis Heart failure, unspecified (CMS/HCC V24, CMS/HCC V28) Heart failure, unspecified Sepsis, unspecified organism (CMS/HCC V24, CMS/HCC V28) Hyperlipidemia, unspecified Type 2 diabetes mellitus without complications (CMS/HCC V24, CMS/HCC V28) Other cerebrovascular disease documented in this encounter Care Teams Ceramics Teacher Relationship Specialty Start Date End Date Damien Kay MD [address] [place] [address], [phone] PCP - General Family Medicine 07/05/24 documented as of this encounter
--- OUTSIDE RECORDS SUMMARY | 2024-09-22 13:10 | XMS_ITS | Encounter Summary ---
Author Organization [facility] Address [address] [place] [phone] Care Team Providers Care Instrument Worker Name Role Phone Damien Kay MD Primary Care Provider Encounter Details Date Type Department Care Team (Late st Contact Info) Description 07/26/2024 Lab Requisition [facility] - Main Lab 299 [facility] [place] [address] Damien Kay MD [address] [place] [address] [address] [place], [phone] Heart failure, unspecified (CMS/HCC V24, CMS/HCC [...] unspecified documented in this encounter Care Teams Instrument Worker Relationship Specialty Start Date End Date Damien Kay MD 38 [facility] [address] [place], [phone] PCP - General Family Medicine 07/05/24 documented as of this encounter
--- OUTSIDE RECORDS SUMMARY | 2024-09-22 13:10 | XMS_ITS | Encounter Summary ---
Author Organization [facility] Address [address] [place] [phone] Care Team Providers Care Highway Engineering Technician Name Role Phone Damien Kay MD Primary Care Provider [phone] Encounter Details Date Type Department Care Team (Late st Contact Info) Description 05/24/2024 Lab Requisition [facility] - Main Lab 299 [facility] [place] [address] Damien Kay MD 38 [facility] [address] [place], [phone] Unspecified atrial fibrillation (CMS/HCC V24, CMS/HCC [...] mmol/L LAB CHEMISTRY METHOD 05/25/2024 11:53 AM [facility] Potassium 4.2 3.5 - 5.5 mmol/L LAB CHEMISTRY METHOD 05/25/2024 11:53 AM [facility] Chloride 106 96 - 110 mmol/L LAB CHEMISTRY METHOD 05/25/2024 11:53 AM [facility] CO2 26 21 - 32 mmol/L LAB CHEMISTRY METHOD 05/25/2024 11:53 AM [facility] Anion Gap 7 3 - 11 LAB CHEMISTRY METHOD 05/25/2024 11:53 AM [facility] Glucose 89 70 - 100 mg/dL LAB CHEMISTRY METHOD 05/25/2024 11:53 AM [facility] BUN 43(H) 5 - 25 mg/dL LAB CHEMISTRY METHOD 05/25/2024 11:53 AM [facility] Creatinine 2.17(H) 0.50 - 1.10 mg/dL LAB CHEMISTRY METHOD 05/25/2024 11:53 AM [facility] eGFR 24(L) >=60 mL/min/1. 73m2 LAB CHEMISTRY METHOD 05/25/2024 11:53 AM [facility] Comment:Calculation based on the??Chronic Kidney Disease Epidemiology Collaboration (CKD-EPI) equation refit??without adjustment for race. BUN/Creatinine Ratio 19.8 LAB CHEMISTRY METHOD 05/25/2024 11:53 AM [facility] Calcium 8.5 8.5 - 10.5 mg/dL LAB CHEMISTRY METHOD 05/25/2024 11:53 AM [facility] Blood Venous blood specimen / Unknown Venipuncture / Unknown 05/25/2024 6:42 AM EST 05/25/2024 10:15 AM EST Damien Kay MD LAB BLOOD ORDERABLES Final Resul t [facility] [address] [place] [address], * (ABNORMAL) Complete blood count (05/25/2024 6:42 AM EST) WBC 9.5 4.8 - 10.8 K/mcL LAB HEMETOLOGY METHOD 05/25/2024 11:22 AM [facility] RBC 3.70(L) 3.80 - 4.80 M/mcL LAB HEMETOLOGY METHOD 05/25/2024 11:22 AM [facility] Hemoglobin 9.3(L) 11.5 - 16.0 g/dL LAB HEMETOLOGY METHOD 05/25/2024 11:22 AM [facility] Hematocrit 30.7(L) 35.0 - 47.0 % LAB HEMETOLOGY METHOD 05/25/2024 11:22 AM [facility] MCV 84.1 79.0 - 98.0 FL LAB HEMETOLOGY METHOD 05/25/2024 11:22 AM [facility] MCH 25.5(L) 27.0 - 32.0 pcg LAB HEMETOLOGY METHOD 05/25/2024 11:22 AM [facility] MCHC 30.3(L) 32.0 - 37.0 g/dL LAB HEMETOLOGY METHOD 05/25/2024 11:22 AM [facility] RDW 19.8(H) 11.0 - 15.0 % LAB HEMETOLOGY METHOD 05/25/2024 11:22 AM [facility] Platelets 496(H) 130 - 400 K/mcL LAB HEMETOLOGY METHOD 05/25/2024 11:22 AM [facility] MPV 11.2(H) 7.0 - [...] Resul t [facility] [address] [place] [address], documented in this encounter Visit Diagnoses Diagnosis Unspecified atrial fibrillation (CMS/HCC V24, CMS/HCC V28) Type 2 diabetes mellitus without complications (CMS/HCC V24, CMS/HCC V28) Heart failure, unspecified (CMS/HCC V24, CMS/HCC V28) Heart failure, unspecified documented in this encounter Care Teams Highway Engineering Technician Relationship Specialty Start Date End Date Damien Kay MD [address] [place] [address] [address] [place], [phone] PCP - General Family Medicine 07/05/24 documented as of this encounter
--- OUTSIDE RECORDS SUMMARY | 2024-09-22 13:10 | XMS_ITS | Encounter Summary ---
Author Organization [facility] Address [address] [place] [phone] Care Team Providers Care Bacteriologist Pharmaceutical Name Role Phone Daimen Kay MD Primary Care Provider [phone] Encounter Details Date Type Department Care Team (Late st Contact Info) Description 09/22/2024 Lab Requisition [facility] - Main Lab [address] [place] [address] Damien Kay MD 38 [facility] [address] [place], [phone] Type 2 diabetes mellitus without complications [...] Associated Diagnosis Comments COMPLETE BLOOD COUNT Routine 09/22/2024 4:53 AM EDT Type 2 diabetes mellitus without complications (CMS/HCC V24, CMS/HCC V28) documented in this encounter Results * (ABNORMAL) Complete blood count (09/22/2024 4:53 AM EDT) WBC 7.5 4.8 - 10.8 K/[facility] LAB HEMETOLOGY METHOD 09/22/2024 8:25 AM EDT [facility] RBC 2.30(L) 3.80 - 4.80 M/[facility] LAB HEMETOLOGY METHOD 09/22/2024 8:25 AM EDT [facility] Hemoglobin 6.1(LL) 11.5 - 16.0 g/dL LAB HEMETOLOGY METHOD 09/22/2024 8:25 AM [facility] Hematocrit 20.8(L) 35.0 - 47.0 % LAB HEMETOLOGY METHOD 09/22/2024 8:25 AM [facility] MCV 92.0 79.0 - 98.0 FL LAB HEMETOLOGY METHOD 09/22/2024 8:25 AM EDT [facility] MCH 27.0 27.0 - 32.0 pcg LAB HEMETOLOGY METHOD 09/22/2024 8:25 AM [facility] MCHC 29.3(L) 32.0 - 37.0 g/dL LAB HEMETOLOGY METHOD 09/22/2024 8:25 AM [facility] RDW 16.7(H) 11.0 - 15.0 % LAB HEMETOLOGY METHOD 09/22/2024 8:25 AM [facility] Platelets 469(H) 130 - 400 K/mcL LAB HEMETOLOGY METHOD 09/22/2024 8:25 AM [facility] MPV 11.0 7.0 - 11.0 FL LAB HEMETOLOGY METHOD 09/22/2024 8:25 AM [facility] NRBC 0.0 <1.0 % LAB HEMETOLOGY METHOD 09/22/2024 8:25 AM [facility] NRBC Absolute 0.00 <0.10 K/mcL LAB HEMETOLOGY METHOD 09/22/2024 8:25 AM [facility] Blood Venous blood specimen / Unknown Venipuncture / Unknown 09/22/2024 4:53 AM EDT 09/22/2024 7:31 AM EDT us Damien Kay MD LAB BLOOD ORDERABLES Final Resul t [facility] [address] [place] [address], documented in this encounter Visit Diagnoses Diagnosis Type 2 diabetes mellitus without complications (CMS/HCC V24, CMS/HCC V28) documented in this encounter Care Teams Bacteriologist Pharmaceutical Relationship Specialty Start Date End Date Damien Kay MD [address] [place] [address], [phone] PCP - General Family Medicine 07/05/24 documented as of this encounter
--- OUTSIDE RECORDS SUMMARY | 2024-09-22 13:10 | XMS_ITS | Encounter Summary ---
Author Organization [facility] Address [address] [place] [phone] Care Team Providers Care Chip Bin Operator Name Role Phone Damien Kay MD Primary Care Provider [phone] Encounter Details Date Type Department Care Team (Late st Contact Info) Description 05/17/2024 Lab Requisition [facility] - Main Lab 299 [facility] [place] [address] Damien Kay MD 38 [facility] [address] [place], [phone] Unspecified atrial fibrillation (CMS/HCC V24, CMS/HCC [...] mmol/L LAB CHEMISTRY METHOD 05/19/2024 11:23 AM [facility] Potassium 4.1 3.5 - 5.5 mmol/L LAB CHEMISTRY METHOD 05/19/2024 11:23 AM [facility] Chloride 102 96 - 110 mmol/L LAB CHEMISTRY METHOD 05/19/2024 11:23 AM [facility] CO2 23 21 - 32 mmol/L LAB CHEMISTRY METHOD 05/19/2024 11:23 AM [facility] Anion Gap 11 3 - 11 LAB CHEMISTRY METHOD 05/19/2024 11:23 AM [facility] Glucose 81 70 - 100 mg/dL LAB CHEMISTRY METHOD 05/19/2024 11:23 AM [facility] BUN 57(H) 5 - 25 mg/dL LAB CHEMISTRY METHOD 05/19/2024 11:23 AM [facility] Creatinine 2.71(H) 0.50 - 1.10 mg/dL LAB CHEMISTRY METHOD 05/19/2024 11:23 AM [facility] eGFR 18(L) >=60 mL/min/1. 73m2 LAB CHEMISTRY METHOD 05/19/2024 11:23 AM [facility] Comment:Calculation based on the??Chronic Kidney Disease Epidemiology Collaboration (CKD-EPI) equation refit??without adjustment for race. BUN/Creatinine Ratio 21.0 LAB CHEMISTRY METHOD 05/19/2024 11:23 AM [facility] Calcium 8.9 8.5 - 10.5 mg/dL LAB CHEMISTRY METHOD 05/19/2024 11:23 AM [facility] Blood Venous blood specimen / Unknown Venipuncture / Unknown 05/19/2024 5:53 AM EST 05/19/2024 9:36 AM EST Damien Kay MD LAB BLOOD ORDERABLES Final Resul t [facility] [address] [place] [address], * (ABNORMAL) Complete blood count (05/19/2024 5:53 AM EST) WBC 10.7 4.8 - 10.8 K/mcL LAB HEMETOLOGY METHOD 05/19/2024 10:51 AM EST [facility] RBC 3.70(L) 3.80 - 4.80 M/mcL LAB HEMETOLOGY METHOD 05/19/2024 10:51 AM [facility] Hemoglobin 9.5(L) 11.5 - 16.0 g/dL LAB HEMETOLOGY METHOD 05/19/2024 10:51 AM [facility] Hematocrit 31.8(L) 35.0 - 47.0 % LAB HEMETOLOGY METHOD 05/19/2024 10:51 AM EST [facility] MCV 85.3 79.0 - 98.0 FL LAB HEMETOLOGY METHOD 05/19/2024 10:51 AM [facility] MCH 25.5(L) 27.0 - 32.0 pcg LAB HEMETOLOGY METHOD 05/19/2024 10:51 AM [facility] MCHC 29.9(L) 32.0 - 37.0 g/dL LAB HEMETOLOGY METHOD 05/19/2024 10:51 AM [facility] RDW 19.5(H) 11.0 - 15.0 % LAB HEMETOLOGY METHOD 05/19/2024 10:51 AM [facility] Platelets 668(H) 130 - 400 K/mcL LAB HEMETOLOGY METHOD 05/19/2024 10:51 AM [facility] MPV 11.2(H) 7.0 - 11.0 FL LAB HEMETOLOGY METHOD 05/19/2024 10:51 AM EST [facility] NRBC 0.0 <1.0 % LAB HEMETOLOGY METHOD 05/19/2024 10:51 AM EST [facility] NRBC Absolute 0.00 <0.10 K/mcL LAB HEMETOLOGY METHOD 05/19/2024 10:51 AM EST [facility] Blood Venous blood specimen / Unknown Venipuncture / Unknown 05/19/2024 5:53 AM EST 05/19/2024 9:37 AM EST us Damien Kay MD LAB BLOOD ORDERABLES Final Resul t [facility] [address] [place] [address], documented in this encounter Visit Diagnoses Diagnosis Unspecified atrial fibrillation (CMS/HCC V24, CMS/HCC V28) Type 2 diabetes mellitus without complications (CMS/HCC V24, CMS/HCC V28) Heart failure, unspecified (CMS/HCC V24, CMS/HCC V28) Heart failure, unspecified documented in this encounter Care Teams Chip Bin Operator Relationship Specialty Start Date End Date Damien Kay MD [address] [place] [address] [address] [place], [phone] PCP - General Family Medicine 07/05/24 documented as of this encounter
--- OUTSIDE RECORDS SUMMARY | 2024-09-22 13:10 | XMS_ITS | Encounter Summary ---
Author Organization [facility] Address [address] [place] [phone] Care Team Providers Care Child Care Associate Name Role Phone Damien Kay MD Primary Care Provider [phone] Encounter Details Date Type Department Care Team (Late st Contact Info) Description 09/13/2024 Lab Requisition [facility] - Main Lab 299 [facility] [place] [address] Damien Kay MD 38 [facility] [address] [place], [phone] Heart failure, unspecified (CMS/HCC V24, CMS/HCC [...] Associated Diagnosis Comments COMPLETE BLOOD COUNT Routine 09/14/2024 8:30 AM EDT Heart failure, unspecified (CMS/HCC V24, CMS/HCC V28) Sepsis, unspecified organism (CMS/HCC V24, CMS/HCC V28) Hyperlipidemia, unspecified B-TYPE NATRIURETIC PEPTIDE Routine 09/14/2024 8:30 AM EDT Heart failure, unspecified (CMS/HCC V24, CMS/HCC V28) Sepsis, unspecified organism (CMS/HCC V24, CMS/HCC V28) Hyperlipidemia, unspecified BASIC METABOLIC PANEL Routine 09/14/2024 8:30 AM EDT Heart failure, unspecified ([facility] V24, [facility] V28) Sepsis, unspecified organism ([facility] V24, [facility] V28) Hyperlipidemia, unspecified documented in this encounter Results * (ABNORMAL) B-type natriuretic peptide (09/14/2024 8:30 AM EDT) [facility] BNP 1,166(H) <=100 pcg/mL LAB CHEMISTRY METHOD 09/14/2024 12:26 PM EDT [facility] Blood Venous blood specimen / Unknown Venipuncture / Unknown 09/14/2024 8:30 AM EDT 09/14/2024 11:13 AM EDT us Damien Kay MD LAB BLOOD ORDERABLES Final Resul t [facility] [address] [place] [address], [place] [phone] * (ABNORMAL) Basic metabolic panel (09/14/2024 8:30 AM EDT) [facility] Sodium 139 133 - 145 mmol/L LAB CHEMISTRY METHOD 09/14/2024 6:44 PM EDT [facility] Potassium 3.9 3.5 - 5.5 mmol/L LAB CHEMISTRY METHOD 09/14/2024 6:44 PM EDT [facility] Chloride 106 96 - 110 mmol/L LAB CHEMISTRY METHOD 09/14/2024 6:44 PM EDT [facility] CO2 26 21 - 32 mmol/L LAB CHEMISTRY METHOD 09/14/2024 6:44 PM EDT [facility] Anion Gap 7 3 - 11 LAB CHEMISTRY METHOD 09/14/2024 6:44 PM EDT [facility] Glucose 103(H) 70 - 100 mg/dL LAB CHEMISTRY METHOD 09/14/2024 6:44 PM EDT [facility] BUN 15 5 - 25 mg/dL LAB CHEMISTRY METHOD 09/14/2024 6:44 PM EDT [facility] Creatinine 0.92 0.50 - 1.10 mg/dL LAB CHEMISTRY METHOD 09/14/2024 6:44 PM EDT [facility] eGFR 66 >=60 mL/min/1. 73m2 LAB CHEMISTRY METHOD 09/14/2024 6:44 PM EDT [facility] Comment:Calculation based on the??Chronic Kidney Disease Epidemiology Collaboration (CKD-EPI) equation refit??without adjustment for race. BUN/Creatinine Ratio 16.3 LAB CHEMISTRY METHOD 09/14/2024 6:44 PM EDT [facility] Calcium 9.0 8.5 - 10.5 mg/dL LAB CHEMISTRY METHOD 09/14/2024 6:44 PM EDT [facility] Blood Venous blood specimen / Unknown Venipuncture / Unknown 09/14/2024 8:30 AM EDT 09/14/2024 11:13 AM EDT us Damien Kay MD LAB BLOOD ORDERABLES Final Resul t [facility] [address] [place] [address], * (ABNORMAL) Complete blood count (09/14/2024 8:30 AM EDT) WBC 6.4 4.8 - 10.8 K/mcL LAB HEMETOLOGY METHOD 09/14/2024 11:48 AM EDT [facility] RBC 2.50(L) 3.80 - 4.80 M/mcL LAB HEMETOLOGY METHOD 09/14/2024 11:48 AM EDT [facility] Hemoglobin 7.4(L) 11.5 - 16.0 g/dL LAB HEMETOLOGY METHOD 09/14/2024 11:48 AM EDT [facility] Hematocrit 24.5(L) 35.0 - 47.0 % LAB HEMETOLOGY METHOD 09/14/2024 11:48 AM EDT [facility] MCV 96.5 79.0 - 98.0 FL LAB HEMETOLOGY METHOD 09/14/2024 11:48 AM EDT [facility] MCH 29.1 27.0 - 32.0 pcg LAB HEMETOLOGY METHOD 09/14/2024 11:48 AM EDT [facility] MCHC 30.2(L) 32.0 - 37.0 g/dL LAB HEMETOLOGY METHOD 09/14/2024 11:48 AM EDT [facility] RDW 17.6(H) 11.0 - 15.0 % LAB HEMETOLOGY METHOD 09/14/2024 11:48 AM EDT [facility] Platelets 529(H) 130 - 400 K/mcL LAB HEMETOLOGY METHOD 09/14/2024 11:48 AM EDT [facility] MPV 10.6 7.0 - 11.0 FL LAB HEMETOLOGY METHOD 09/14/2024 11:48 AM EDT [facility] NRBC 0.0 <1.0 % LAB HEMETOLOGY METHOD 09/14/2024 11:48 AM EDT [facility] NRBC Absolute 0.00 <0.10 K/mcL LAB HEMETOLOGY METHOD 09/14/2024 11:48 AM EDT [facility] Blood Venous blood specimen / Unknown Venipuncture / Unknown 09/14/2024 8:30 AM EDT 09/14/2024 11:13 AM EDT us Damien Kay MD LAB BLOOD ORDERABLES Final Resul t [facility] [address] [place] [address], documented in this encounter Visit Diagnoses Diagnosis Heart failure, unspecified ([facility] V24, [facility] V28) Heart failure, unspecified Sepsis, unspecified organism ([facility] V24, [facility] V28) Hyperlipidemia, unspecified documented in this encounter Care Teams Child Care Associate Relationship Specialty Start Date End Date Damien Kay MD [address] [place] [address], [phone] PCP - General Family Medicine 07/05/24 documented as of this encounter
--- OUTSIDE RECORDS SUMMARY | 2024-09-22 13:10 | XMS_ITS | Encounter Summary ---
Author Organization [facility] Address [address] [place] [phone] Care Team Providers Care Command Center Officer Name Role Phone Damien Kay MD Primary Care Provider [phone] Encounter Details Date Type Department Care Team (Late st Contact Info) Description 08/09/2024 Lab Requisition [facility] - Main Lab 299 [facility] [place] [address] Damien Kay MD 38 [facility] [address] [place], [address] Heart failure, unspecified (CMS/HCC V24, CMS/HCC [...] peptide (08/10/2024 8:36 AM EDT) Pathologist [facility] BNP 869(H) <=100 pcg/mL LAB CHEMISTRY METHOD 08/10/2024 11:45 AM EDT [facility] Blood Venous blood specimen / Unknown Venipuncture / Unknown 08/10/2024 8:36 AM EDT 08/10/2024 10:45 AM EDT us Damien Kay MD LAB BLOOD ORDERABLES Final Resul t [facility] [address] [place] [address], [place] [phone] * Basic metabolic panel (08/10/2024 8:36 AM EDT) [facility] Sodium 138 133 - 145 mmol/L LAB CHEMISTRY METHOD 08/10/2024 12:03 PM [facility] Potassium 4.1 3.5 - 5.5 mmol/L LAB CHEMISTRY METHOD 08/10/2024 12:03 PM [facility] Chloride 107 96 - 110 mmol/L LAB CHEMISTRY METHOD 08/10/2024 12:03 PM [facility] CO2 27 21 - 32 mmol/L LAB CHEMISTRY METHOD 08/10/2024 12:03 PM [facility] Anion Gap 4 3 - 11 LAB CHEMISTRY METHOD 08/10/2024 12:03 PM [facility] Glucose 89 70 - 100 mg/dL LAB CHEMISTRY METHOD 08/10/2024 12:03 PM [facility] BUN 10 5 - 25 mg/dL LAB CHEMISTRY METHOD 08/10/2024 12:03 PM [facility] Creatinine 0.87 0.50 - 1.10 mg/dL LAB CHEMISTRY METHOD 08/10/2024 12:03 PM EDT [facility] eGFR 71 >=60 mL/min/1. 73m2 LAB CHEMISTRY METHOD 08/10/2024 12:03 PM EDT [facility] Comment:Calculation based on the??Chronic Kidney Disease Epidemiology Collaboration (CKD-EPI) equation refit??without adjustment for race. BUN/Creatinine Ratio 11.5 LAB CHEMISTRY METHOD 08/10/2024 12:03 PM EDT [facility] Calcium 8.6 8.5 - 10.5 mg/dL LAB CHEMISTRY METHOD 08/10/2024 12:03 PM EDT [facility] Blood Venous blood specimen / Unknown Venipuncture / Unknown 08/10/2024 8:36 AM EDT 08/10/2024 10:45 AM EDT us Damien Kay MD LAB BLOOD ORDERABLES Final Resul t [facility] [address] [place] [address], [place] [phone] * (ABNORMAL) Complete blood count (08/10/2024 8:36 AM EDT) WBC 6.8 4.8 - 10.8 K/mcL LAB HEMETOLOGY METHOD 08/10/2024 10:59 AM EDT [facility] RBC 2.90(L) 3.80 - 4.80 M/mcL LAB HEMETOLOGY METHOD 08/10/2024 10:59 AM EDT [facility] Hemoglobin 8.8(L) 11.5 - 16.0 g/dL LAB HEMETOLOGY METHOD 08/10/2024 10:59 AM T [facility] Hematocrit 27.8(L) 35.0 - 47.0 % LAB HEMETOLOGY METHOD 08/10/2024 10:59 AM EDT [facility] MCV 97.2 79.0 - 98.0 FL LAB HEMETOLOGY METHOD 08/10/2024 10:59 AM EDT [facility] MCH 30.8 27.0 - 32.0 pcg LAB HEMETOLOGY METHOD 08/10/2024 10:59 AM EDT [facility] MCHC 31.7(L) 32.0 - 37.0 g/dL LAB HEMETOLOGY METHOD 08/10/2024 10:59 AM EDT [facility] RDW 15.9(H) 11.0 - 15.0 % LAB HEMETOLOGY METHOD 08/10/2024 10:59 AM EDT [facility] Platelets 479(H) 130 - 400 K/mcL LAB HEMETOLOGY METHOD 08/10/2024 10:59 AM EDT [facility] MPV 10.9 7.0 - 11.0 FL LAB HEMETOLOGY METHOD 08/10/2024 10:59 AM EDT [facility] NRBC 0.0 <1.0 % LAB HEMETOLOGY METHOD 08/10/2024 10:59 AM EDT [facility] NRBC Absolute 0.00 <0.10 K/mcL LAB HEMETOLOGY METHOD 08/10/2024 10:59 AM EDT [facility] Blood Venous blood specimen / Unknown Venipuncture / Unknown 08/10/2024 8:36 AM EDT 08/10/2024 10:45 AM EDT us Damien Kay MD LAB BLOOD ORDERABLES Final Resul t [facility] [address] [place] [address], documented in this encounter Visit Diagnoses Diagnosis Heart failure, unspecified (CMS/HCC V24, CMS/[facility] V28) Heart failure, unspecified Sepsis, unspecified organism (CMS/HCC V24, CMS/HCC V28) Hyperlipidemia, unspecified documented in this encounter Care Teams Command Center Officer Relationship Specialty Start Date End Date Damien Kay MD [address], [phone] PCP - General Family Medicine 07/05/24 documented as of this encounter
--- OUTSIDE RECORDS SUMMARY | 2024-09-22 13:10 | XMS_ITS | Encounter Summary ---
Author Organization [facility] Address [address] [place] [phone] Care Team Providers Care Marketing Executive Name Role Phone Damien Kay MD Primary Care Provider [phone] Encounter Details Date Type Department Care Team (Late st Contact Info) Description 08/30/2024 Lab Requisition [facility] - Main Lab 299 [facility] [place] [address] Damien Kay MD 38 [facility] 204 [place], [phone] Heart failure, unspecified (CMS/HCC V24, CMS/HCC [...] 08/31/2024 6:37 AM EDT Heart failure, unspecified ([facility] V24, [facility] V28) Sepsis, unspecified organism ([facility] V24, [facility] V28) Hyperlipidemia, unspecified documented in this encounter Results * (ABNORMAL) B-type natriuretic peptide (08/31/2024 6:37 AM EDT) Pathologist [facility] BNP 710(H) <=100 pcg/mL LAB CHEMISTRY METHOD 08/31/2024 11:55 AM EDT [facility] Blood Venous blood specimen / Unknown Venipuncture / Unknown 08/31/2024 6:37 AM EDT 08/31/2024 11:13 AM EDT us Damien Kay MD LAB BLOOD ORDERABLES Final Resul t [facility] [address] [place] [address], [place] [phone] * Basic metabolic panel (08/31/2024 6:37 AM EDT) Pathologist [facility] Sodium 140 133 - 145 mmol/L LAB CHEMISTRY METHOD 08/31/2024 12:41 PM T [facility] Potassium 3.5 3.5 - 5.5 mmol/L LAB CHEMISTRY METHOD 08/31/2024 12:41 PM T [facility] Chloride 106 96 - 110 mmol/L LAB CHEMISTRY METHOD 08/31/2024 12:[address] [facility] CO2 28 21 - 32 mmol/L LAB CHEMISTRY METHOD 08/31/2024 12:41 PM T [facility] Anion Gap 6 3 - 11 LAB CHEMISTRY METHOD 08/31/2024 12:[address] [facility] Glucose 85 70 - 100 mg/dL LAB CHEMISTRY METHOD 08/31/2024 12:41 PM T [facility] BUN 16 5 - 25 mg/dL LAB CHEMISTRY METHOD 08/31/2024 12:41 PM EDT [facility] Creatinine 0.85 0.50 - 1.10 mg/dL LAB CHEMISTRY METHOD 08/31/2024 12:41 PM EDT [facility] eGFR 72 >=60 mL/min/1. 73m2 LAB CHEMISTRY METHOD 08/31/2024 12:41 PM EDT [facility] Comment:Calculation based on the??Chronic Kidney Disease Epidemiology Collaboration (CKD-EPI) equation refit??without adjustment for race. BUN/Creatinine Ratio 18.8 LAB CHEMISTRY METHOD 08/31/2024 12:41 PM EDT [facility] Calcium 8.6 8.5 - 10.5 mg/dL LAB CHEMISTRY METHOD 08/31/2024 12:41 PM EDT [facility] Blood Venous blood specimen / Unknown Venipuncture / Unknown 08/31/2024 6:37 AM EDT 08/31/2024 11:13 AM EDT us Damien Kay MD LAB BLOOD ORDERABLES Final Resul t [facility] [address] [place] [address], [place] [phone] * (ABNORMAL) Complete blood count (08/31/2024 6:37 AM EDT) WBC 5.8 4.8 - 10.8 K/mcL LAB HEMETOLOGY METHOD 08/31/2024 11:30 AM EDT [facility] RBC 2.20(L) 3.80 - 4.80 M/mcL LAB HEMETOLOGY METHOD 08/31/2024 11:30 AM EDT [facility] Hemoglobin 6.4(LL) 11.5 - 16.0 g/dL LAB HEMETOLOGY METHOD 08/31/2024 11:30 AM EDT [facility] Hematocrit 20.6(L) 35.0 - 47.0 % LAB HEMETOLOGY METHOD 08/31/2024 11:30 AM EDT [facility] MCV 95.0 79.0 - 98.0 FL LAB HEMETOLOGY METHOD 08/31/2024 11:30 AM EDT [facility] MCH 28.8 27.0 - 32.0 pcg LAB HEMETOLOGY METHOD 08/31/2024 11:30 AM EDT [facility] MCHC 30.3(L) 32.0 - 37.0 g/dL LAB HEMETOLOGY METHOD 08/31/2024 11:30 AM EDT [facility] RDW 15.5(H) 11.0 - 15.0 % LAB HEMETOLOGY METHOD 08/31/2024 11:30 AM EDT [facility] Platelets 541(H) 130 - 400 K/mcL LAB HEMETOLOGY METHOD 08/31/2024 11:30 AM EDT [facility] MPV 10.5 7.0 - 11.0 FL LAB HEMETOLOGY METHOD 08/31/2024 11:30 AM EDT [facility] NRBC 0.0 <1.0 % LAB HEMETOLOGY METHOD 08/31/2024 11:30 AM EDT [facility] NRBC Absolute 0.00 <0.10 K/mcL LAB HEMETOLOGY METHOD 08/31/2024 11:30 AM EDT [facility] Blood Venous blood specimen / Unknown Venipuncture / Unknown 08/31/2024 6:37 AM EDT 08/31/2024 11:13 AM EDT us Damien Kay MD LAB BLOOD ORDERABLES Final Resul t [facility] [address] [place] [address], documented in this encounter Visit Diagnoses Diagnosis Heart failure, unspecified ([facility] V24, [facility] V28) Heart failure, unspecified Sepsis, unspecified organism ([facility] V24, [facility] V28) Hyperlipidemia, unspecified documented in this encounter Care Teams Marketing Executive Relationship Specialty Start Date End Date Damien Kay MD [address] [place] [address], [phone] PCP - General Family Medicine 07/05/24 documented as of this encounter
--- OUTSIDE RECORDS SUMMARY | 2024-09-22 13:10 | XMS_ITS | Encounter Summary ---
Author Organization [facility] Address [address] [place] [phone] Care Team Providers Care Job Foreman Name Role Phone Damien Kay MD Primary Care Provider [phone] Encounter Details Date Type Department Care Team (Late st Contact Info) Description 09/08/2024 Lab Requisition [facility] Lab 299 [place] [address] Damien Kay MD 38 [facility] [address] [place], [phone] Type 2 diabetes mellitus without complications (CMS/HCC V24, CMS/HCC V28); Anemia, unspecified; Hyperkalemia Social History Tobacco Use Types Packs/Day Years [...] Associated Diagnosis Comments COMPLETE BLOOD COUNT Routine 09/08/2024 5:31 AM EDT Type 2 diabetes mellitus without complications (CMS/HCC V24, CMS/HCC V28) Anemia, unspecified Hyperkalemia documented in this encounter Results * (ABNORMAL) Complete blood count (09/08/2024 5:31 AM EDT) WBC 7.2 4.8 - 10.8 K/[facility] LAB HEMETOLOGY METHOD 09/08/2024 10:44 AM EDT [facility] RBC 2.30(L) 3.80 - 4.80 M/mcL LAB HEMETOLOGY METHOD 09/08/2024 10:[address] [facility] Hemoglobin 6.5(L) 11.5 - 16.0 g/dL LAB HEMETOLOGY METHOD 09/08/2024 10:[address] [facility] Hematocrit 21.5(L) 35.0 - 47.0 % LAB HEMETOLOGY METHOD 09/08/2024 10:[address] [facility] MCV 95.6 79.0 - 98.0 FL LAB HEMETOLOGY METHOD 09/08/2024 10:[address] [facility] MCH 28.9 27.0 - 32.0 pcg LAB HEMETOLOGY METHOD 09/08/2024 10:[address] [facility] MCHC 30.2(L) 32.0 - 37.0 g/dL LAB HEMETOLOGY METHOD 09/08/2024 10:[address] [facility] RDW 16.6(H) 11.0 - 15.0 % LAB HEMETOLOGY METHOD 09/08/2024 10:[address] [facility] Platelets 474(H) 130 - 400 K/mcL LAB HEMETOLOGY METHOD 09/08/2024 10:[address] [facility] MPV 10.9 7.0 - 11.0 FL LAB HEMETOLOGY METHOD 09/08/2024 10:[address] [facility] NRBC 0.0 <1.0 % LAB HEMETOLOGY METHOD 09/08/2024 10:[address] [facility] NRBC Absolute 0.00 <0.10 K/mcL LAB HEMETOLOGY METHOD 09/08/2024 10:[address] [facility] Blood Venous blood specimen / Unknown Venipuncture / Unknown 09/08/2024 5:31 AM EDT 09/08/2024 10:13 AM EDT us Damien Kay MD LAB BLOOD ORDERABLES Final Resul t [facility] ([facility]) [facility] [address] [place] [address], documented in this encounter Visit Diagnoses Diagnosis Type 2 diabetes mellitus without complications (CMS/HCC V24, CMS/HCC V28) Anemia, unspecified Hyperkalemia Hyperpotassemia documented in this encounter Care Teams Job Foreman Relationship Specialty Start Date End Date Damien Kay MD [address] [place] [address] [address] [place], [phone] PCP - General Family Medicine 07/05/24 documented as of this encounter
--- OUTSIDE RECORDS SUMMARY | 2024-09-22 13:10 | XMS_ITS | Encounter Summary ---
Author Organization [facility] Address [address] [place] [phone] Care Team Providers Care Heat Pump Installer Name Role Phone Damien Kay MD Primary Care Provider [phone] Encounter Details Date Type Department Care Team (Late st Contact Info) Description 05/10/2024 Lab Requisition [facility] - Main Lab 299 [facility] [place] [address] Damien Kay MD 38 [facility] [address] [place], [phone] Unspecified atrial fibrillation (CMS/HCC V24, CMS/HCC [...] mmol/L LAB CHEMISTRY METHOD 05/12/2024 11:29 AM [facility] Potassium 3.5 3.5 - 5.5 mmol/L LAB CHEMISTRY METHOD 05/12/2024 11:29 AM [facility] Chloride 101 96 - 110 mmol/L LAB CHEMISTRY METHOD 05/12/2024 11:29 AM [facility] CO2 27 21 - 32 mmol/L LAB CHEMISTRY METHOD 05/12/2024 11:29 AM [facility] Anion Gap 9 3 - 11 LAB CHEMISTRY METHOD 05/12/2024 11:29 AM [facility] Glucose 103(H) 70 - 100 mg/dL LAB CHEMISTRY METHOD 05/12/2024 11:29 AM [facility] BUN 37(H) 5 - 25 mg/dL LAB CHEMISTRY METHOD 05/12/2024 11:29 AM [facility] Creatinine 1.70(H) 0.50 - 1.10 mg/dL LAB CHEMISTRY METHOD 05/12/2024 11:29 AM [facility] eGFR 32(L) >=60 mL/min/1. 73m2 LAB CHEMISTRY METHOD 05/12/2024 11:29 AM [facility] Comment:Calculation based on the??Chronic Kidney Disease Epidemiology Collaboration (CKD-EPI) equation refit??without adjustment for race. BUN/Creatinine Ratio 21.8 LAB CHEMISTRY METHOD 05/12/2024 11:29 AM [facility] Calcium 9.0 8.5 - 10.5 mg/dL LAB CHEMISTRY METHOD 05/12/2024 11:29 AM [facility] Blood Venous blood specimen / Unknown Venipuncture / Unknown 05/12/2024 7:30 AM EST 05/12/2024 10:49 AM EST us Damien Kay MD LAB BLOOD ORDERABLES Final Resul t [facility] [address] [place] [address], * (ABNORMAL) Complete blood count (05/12/2024 7:30 AM EST) WBC 11.4(H) 4.8 - 10.8 K/mcL LAB HEMETOLOGY METHOD 05/12/2024 11:01 AM [facility] RBC 3.60(L) 3.80 - 4.80 M/mcL LAB HEMETOLOGY METHOD 05/12/2024 11:01 AM [facility] Hemoglobin 9.1(L) 11.5 - 16.0 g/dL LAB HEMETOLOGY METHOD 05/12/2024 11:01 AM [facility] Hematocrit 29.9(L) 35.0 - 47.0 % LAB HEMETOLOGY METHOD 05/12/2024 11:01 AM [facility] MCV 84.0 79.0 - 98.0 FL LAB HEMETOLOGY METHOD 05/12/2024 11:01 AM [facility] MCH 25.6(L) 27.0 - 32.0 pcg LAB HEMETOLOGY METHOD 05/12/2024 11:01 AM [facility] MCHC 30.4(L) 32.0 - 37.0 g/dL LAB HEMETOLOGY METHOD 05/12/2024 11:01 AM [facility] RDW 18.9(H) 11.0 - 15.0 % LAB HEMETOLOGY METHOD 05/12/2024 11:01 AM [facility] Platelets 690(H) 130 - 400 K/mcL LAB HEMETOLOGY METHOD 05/12/2024 11:01 AM [facility] MPV 10.2 7.0 - 11.0 FL LAB HEMETOLOGY METHOD 05/12/2024 11:[address] [facility] NRBC 0.0 <1.0 % LAB HEMETOLOGY METHOD 05/12/2024 11:[address] [facility] NRBC Absolute 0.00 <0.10 K/mcL LAB HEMETOLOGY METHOD 05/12/2024 11:[address] [facility] Blood Venous blood specimen / Unknown Venipuncture / Unknown 05/12/2024 7:30 AM EST 05/12/2024 10:49 AM EST Damien Kay MD LAB BLOOD ORDERABLES Final Resul t [facility] [address] [place] [address], documented in this encounter Visit Diagnoses Diagnosis Unspecified atrial fibrillation (CMS/HCC V24, CMS/HCC V28) Type 2 diabetes mellitus without complications (CMS/HCC V24, CMS/HCC V28) Heart failure, unspecified (CMS/HCC V24, CMS/HCC V28) Heart failure, unspecified documented in this encounter Care Teams Heat Pump Installer Relationship Specialty Start Date End Date Damien Kay MD [address] [place] [address] [address] [place], [phone] PCP - General Family Medicine 07/05/24 documented as of this encounter
--- OUTSIDE RECORDS SUMMARY | 2024-09-22 13:10 | XMS_ITS | Encounter Summary ---
Author Organization [facility] Address [id number] [place] [phone] Care Team Providers Care Automation Machine Operator Name Role Phone Damien Kay MD Primary Care Provider Encounter Details Date Type Department Care Team (Late st Contact Info) Description 09/20/2024 Lab Requisition [facility] - Main Lab 299 [facility] [place] [address] Damien Kay MD 38 [facility] [address] [place], [phone] Heart failure, unspecified (CMS/HCC V24, CMS/HCC [...] Associated Diagnosis Comments COMPLETE BLOOD COUNT Routine 09/21/2024 7:00 AM EDT Heart failure, unspecified (CMS/HCC V24, CMS/HCC V28) Sepsis, unspecified organism (CMS/HCC V24, CMS/HCC V28) Hyperlipidemia, unspecified B-TYPE NATRIURETIC PEPTIDE Routine 09/21/2024 7:00 AM EDT Heart failure, unspecified (CMS/HCC V24, CMS/HCC V28) Sepsis, unspecified organism (CMS/HCC V24, CMS/HCC V28) Hyperlipidemia, unspecified BASIC METABOLIC PANEL Routine 09/21/2024 7:00 AM EDT Heart failure, unspecified ([facility] V24, [facility] V28) Sepsis, unspecified organism ([facility] V24, [facility] V28) Hyperlipidemia, unspecified documented in this encounter Results * Basic metabolic panel (09/21/2024 7:00 AM EDT) Sodium 142 133 - 145 mmol/L LAB CHEMISTRY METHOD 09/21/2024 11:17 AM [facility] Potassium 4.4 3.5 - 5.5 mmol/L LAB CHEMISTRY METHOD 09/21/2024 11:17 AM [facility] Chloride 109 96 - 110 mmol/L LAB CHEMISTRY METHOD 09/21/2024 11:17 AM [facility] CO2 26 21 - 32 mmol/L LAB CHEMISTRY METHOD 09/21/2024 11:17 AM [facility] Anion Gap 7 3 - 11 LAB CHEMISTRY METHOD 09/21/2024 11:17 AM [facility] Glucose 77 70 - 100 mg/dL LAB CHEMISTRY METHOD 09/21/2024 11:17 AM [facility] BUN 14 5 - 25 mg/dL LAB CHEMISTRY METHOD 09/21/2024 11:17 AM [facility] Creatinine 0.94 0.50 - 1.10 mg/dL LAB CHEMISTRY METHOD 09/21/2024 11:17 AM [facility] eGFR 64 >=60 mL/min/1. 73m2 LAB CHEMISTRY METHOD 09/21/2024 11:17 AM [facility] Comment:Calculation based on the Chronic Kidney Disease Epidemiology Collaboration (CKD-EPI) equation refit without adjustment for race. BUN/Creatinine Ratio 14.9 LAB CHEMISTRY METHOD 09/21/2024 11:17 AM [facility] Calcium 8.8 8.5 - 10.5 mg/dL LAB CHEMISTRY METHOD 09/21/2024 11:17 AM EDT [facility] Blood Venous blood specimen / Unknown Venipuncture / Unknown 09/21/2024 7:00 AM EDT 09/21/2024 11:17 AM EDT Damien Kay MD LAB BLOOD ORDERABLES Final Resul t Performing Organization Address [facility]/ZIP Co de Phone Number [facility] [address] [place] [address], [place] [phone] * (ABNORMAL) B-type natriuretic peptide (09/21/2024 7:00 AM EDT) BNP 740(H) <=100 pcg/mL LAB CHEMISTRY METHOD 09/21/2024 11:36 AM EDT [facility] Blood Venous blood specimen / Unknown Venipuncture / Unknown 09/21/2024 7:00 AM EDT 09/21/2024 10:28 AM EDT Damien Kay MD LAB BLOOD ORDERABLES Final Resul t Performing Organization Address [facility] de Phone Number [facility] [address] [place] [address], [place] [phone] * (ABNORMAL) Complete blood count (09/21/2024 7:00 AM EDT) WBC 6.8 4.8 - 10.8 K/[facility] LAB HEMETOLOGY METHOD 09/21/2024 10:52 AM EDT [facility] RBC 2.50(L) 3.80 - 4.80 M/[facility] LAB HEMETOLOGY METHOD 09/21/2024 10:52 AM EDT [facility] Hemoglobin 6.7(L) 11.5 - 16.0 g/dL LAB HEMETOLOGY METHOD 09/21/2024 10:52 AM EDT [facility] Hematocrit 22.9(L) 35.0 - 47.0 % LAB HEMETOLOGY METHOD 09/21/2024 10:52 AM EDT [facility] MCV 92.7 79.0 - 98.0 FL LAB HEMETOLOGY METHOD 09/21/2024 10:52 AM EDT [facility] MCH 27.1 27.0 - 32.0 pcg LAB HEMETOLOGY METHOD 09/21/2024 10:52 AM EDT [facility] MCHC 29.3(L) 32.0 - 37.0 g/dL LAB HEMETOLOGY METHOD 09/21/2024 10:52 AM EDT [facility] RDW 16.9(H) 11.0 - 15.0 % LAB HEMETOLOGY METHOD 09/21/2024 10:52 AM EDT [facility] Platelets 473(H) 130 - 400 K/mcL LAB HEMETOLOGY METHOD 09/21/2024 10:52 AM EDT [facility] MPV 11.3(H) 7.0 - 11.0 FL LAB HEMETOLOGY METHOD 09/21/2024 10:52 AM EDT [facility] NRBC 0.0 <1.0 % LAB HEMETOLOGY METHOD 09/21/2024 10:52 AM T [facility] NRBC Absolute 0.00 <0.10 K/mcL LAB HEMETOLOGY METHOD 09/21/2024 10:52 AM T [facility] Blood Venous blood specimen / Unknown Venipuncture / Unknown 09/21/2024 7:00 AM EDT 09/21/2024 10:30 AM EDT us Damien Kay MD LAB BLOOD ORDERABLES Final Resul t [facility] [address] [place] [address], documented in this encounter Visit Diagnoses Diagnosis Heart failure, unspecified ([facility] V24, [facility] V28) Heart failure, unspecified Sepsis, unspecified organism ([facility] V24, [facility] V28) Hyperlipidemia, unspecified documented in this encounter Care Teams Automation Machine Operator Relationship Specialty Start Date End Date Damien Kay MD [address] [place] [address], [phone] PCP - General Family Medicine 07/05/24 documented as of this encounter
--- OUTSIDE RECORDS SUMMARY | 2024-09-22 13:10 | XMS_ITS | Encounter Summary ---
Author Organization [facility] Address [address] [place] [phone] Care Team Providers Care Lead Software Qa Engineer Name Role Phone Damien Kay MD Primary Care Provider [phone] Encounter Details Date Type Department Care Team (Late st Contact Info) Description 06/21/2024 Lab Requisition [facility] - Main Lab 299 [facility] [place] [address] Damien Kay MD 38 [facility] [address] [place], [address] Hyperlipidemia, unspecified; Sepsis, unspecified organism (CMS/HCC [...] B-type natriuretic peptide (06/22/2024 5:24 AM EST) [facility] BNP 911(H) <=100 pcg/mL LAB CHEMISTRY METHOD 06/22/2024 11:17 AM EST [facility] Blood Venous blood specimen / Unknown Venipuncture / Unknown 06/22/2024 5:24 AM EST 06/22/2024 10:34 AM EST us Damien Kay MD LAB BLOOD ORDERABLES Final Resul t [facility] [address] [place] [address], [place] [phone] * (ABNORMAL) Basic metabolic panel (06/22/2024 5:24 AM EST) [facility] Sodium 141 133 - 145 mmol/L LAB CHEMISTRY METHOD 06/22/2024 12:[address] [facility] Potassium 3.1(L) 3.5 - 5.5 mmol/L LAB CHEMISTRY METHOD 06/22/2024 12:[address] [facility] Chloride 107 96 - 110 mmol/L LAB CHEMISTRY METHOD 06/22/2024 12:[address] [facility] CO2 25 21 - 32 mmol/L LAB CHEMISTRY METHOD 06/22/2024 12:[address] [facility] Anion Gap 9 3 - 11 LAB CHEMISTRY METHOD 06/22/2024 12:[address] [facility] Glucose 82 70 - 100 mg/dL LAB CHEMISTRY METHOD 06/22/2024 12:[address] [facility] BUN 9 5 - 25 mg/dL LAB CHEMISTRY METHOD 06/22/2024 12:[address] [facility] Creatinine 0.79 0.50 - 1.10 mg/dL LAB CHEMISTRY METHOD 06/22/2024 12:[address] [facility] eGFR 80 >=60 mL/min/1. 73m2 LAB CHEMISTRY METHOD 06/22/2024 12:[address] [facility] Comment:Calculation based on the??Chronic Kidney Disease Epidemiology Collaboration (CKD-EPI) equation refit??without adjustment for race. BUN/Creatinine Ratio 11.4 LAB CHEMISTRY METHOD 06/22/2024 12:[address] [facility] Calcium 8.5 8.5 - 10.5 mg/dL LAB CHEMISTRY METHOD 06/22/2024 12:[address] [facility] Blood Venous blood specimen / Unknown Venipuncture / Unknown 06/22/2024 5:24 AM EST 06/22/2024 10:34 AM EST us Damien Kay MD LAB BLOOD ORDERABLES Final Resul t [facility] [address] [place] [address], [place] [phone] * (ABNORMAL) Complete blood count (06/22/2024 5:24 AM EST) WBC 7.5 4.8 - 10.8 K/mcL LAB HEMETOLOGY METHOD 06/22/2024 10:[address] [facility] RBC 2.90(L) 3.80 - 4.80 M/mcL LAB HEMETOLOGY METHOD 06/22/2024 10:[address] [facility] Hemoglobin 7.7(L) 11.5 - 16.0 g/dL LAB HEMETOLOGY METHOD 06/22/2024 10:[address] [facility] Hematocrit 24.8(L) 35.0 - 47.0 % LAB HEMETOLOGY METHOD 06/22/2024 10:[address] [facility] MCV 86.1 79.0 - 98.0 FL LAB HEMETOLOGY METHOD 06/22/2024 10:[address] [facility] MCH 26.7(L) 27.0 - 32.0 pcg LAB HEMETOLOGY METHOD 06/22/2024 10:[address] [facility] MCHC 31.0(L) 32.0 - 37.0 g/dL LAB HEMETOLOGY METHOD 06/22/2024 10:[address] [facility] RDW 25.0(H) 11.0 - 15.0 % LAB HEMETOLOGY METHOD 06/22/2024 10:[address] [facility] Platelets 447(H) 130 - 400 K/mcL LAB HEMETOLOGY METHOD 06/22/2024 10:[address] [facility] MPV 11.1(H) 7.0 - 11.0 FL LAB HEMETOLOGY METHOD 06/22/2024 10:[address] [facility] NRBC 0.0 <1.0 % LAB HEMETOLOGY METHOD 06/22/2024 10:[address] [facility] NRBC Absolute 0.00 <0.10 K/mcL LAB HEMETOLOGY METHOD 06/22/2024 10:[address] [facility] Blood Venous blood specimen / Unknown Venipuncture / Unknown 06/22/2024 5:24 AM EST 06/22/2024 10:34 AM EST us Damien Kay MD LAB BLOOD ORDERABLES Final Resul t [facility] [address] [place] [address], documented in this encounter Visit Diagnoses Diagnosis Hyperlipidemia, unspecified Sepsis, unspecified organism (CMS/HCC V24, CMS/HCC V28) Heart failure, unspecified (CMS/HCC V24, CMS/HCC V28) Heart failure, unspecified documented in this encounter Care Teams Lead Software Qa Engineer Relationship Specialty Start Date End Date Damien Kay MD [address] [place] [address] [address] [place], [phone] PCP - General Family Medicine 07/05/24 documented as of this encounter
--- OUTSIDE RECORDS SUMMARY | 2024-09-22 13:10 | XMS_ITS | Encounter Summary ---
Author Organization [facility] Address [address] [place] [phone] Care Team Providers Care Admin Secretary Name Role Phone Damien Kay MD Primary Care Provider [phone] Encounter Details Date Type Department Care Team (Late st Contact Info) Description 04/29/2024 Lab Requisition [facility] - Main Lab 299 [facility] [place] [address] Damien Kay MD 38 [facility] 204 [place], [address] Type 2 diabetes mellitus without [...] K/mcL LAB HEMETOLOGY METHOD 05/02/2024 10:43 AM [facility] RBC 3.60(L) 3.80 - 4.80 M/mcL LAB HEMETOLOGY METHOD 05/02/2024 10:43 AM [facility] Hemoglobin 9.2(L) 11.5 - 16.0 g/dL LAB HEMETOLOGY METHOD 05/02/2024 10:43 AM [facility] Hematocrit 30.4(L) 35.0 - 47.0 % LAB HEMETOLOGY METHOD 05/02/2024 10:43 AM [facility] MCV 85.2 79.0 - 98.0 FL LAB HEMETOLOGY METHOD 05/02/2024 10:43 AM [facility] MCH 25.8(L) 27.0 - 32.0 pcg LAB HEMETOLOGY METHOD 05/02/2024 10:43 AM [facility] MCHC 30.3(L) 32.0 - 37.0 g/dL LAB HEMETOLOGY METHOD 05/02/2024 10:43 AM [facility] RDW 17.8(H) 11.0 - 15.0 % LAB HEMETOLOGY METHOD 05/02/2024 10:43 AM [facility] Platelets 454(H) 130 - 400 K/mcL LAB HEMETOLOGY METHOD 05/02/2024 10:43 AM [facility] MPV 10.9 7.0 - 11.0 FL LAB HEMETOLOGY METHOD 05/02/2024 10:43 AM [facility] NRBC 0.0 <1.0 % LAB HEMETOLOGY METHOD 05/02/2024 10:43 AM [facility] NRBC Absolute 0.00 <0.10 K/mcL LAB HEMETOLOGY METHOD 05/02/2024 10:43 AM [facility] Neutrophils Relative 70.8 % LAB HEMETOLOGY METHOD 05/02/2024 10:43 AM [facility] Lymphocytes Relative 14.5 % LAB HEMETOLOGY METHOD 05/02/2024 10:43 AM [facility] Monocytes Relative 9.1 % LAB HEMETOLOGY METHOD 05/02/2024 10:43 AM [facility] Eosinophils Relative 4.4 % LAB HEMETOLOGY METHOD 05/02/2024 10:43 AM [facility] Basophils Relative 0.9 % LAB HEMETOLOGY METHOD 05/02/2024 10:43 AM [facility] Immature Granulocytes Relative 0.3 % LAB HEMETOLOGY METHOD 05/02/2024 10:43 AM [facility] Neutrophils Absolute 7.65(H) 1.50 - 7.00 K/mcL LAB HEMETOLOGY METHOD 05/02/2024 10:43 AM [facility] Lymphocytes Absolute 1.57 1.00 - 5.00 K/mcL LAB HEMETOLOGY METHOD 05/02/2024 10:43 AM [facility] Monocytes Absolute 0.99 0.20 - 1.00 K/mcL LAB HEMETOLOGY METHOD 05/02/2024 10:43 AM [facility] Eosinophils Absolute 0.48 0.00 - 0.50 K/mcL LAB HEMETOLOGY METHOD 05/02/2024 10:43 AM [facility] Basophils Absolute 0.10 0.00 - 0.20 K/mcL LAB HEMETOLOGY METHOD 05/02/2024 10:43 AM [facility] Immature Granulocytes Absolute 0.03 0.00 - 0.03 K/mcL LAB HEMETOLOGY METHOD 05/02/2024 10:43 AM [facility] Blood Venous blood specimen / Unknown Venipuncture / Unknown 05/02/2024 5:51 AM EST 05/02/2024 10:24 AM EST us Damien Kay MD LAB BLOOD ORDERABLES Final Resul t [facility] [address] [place] [address], [place] [phone] * (ABNORMAL) Comprehensive metabolic panel (05/02/2024 5:51 AM EST) Sodium 136 133 - 145 mmol/L LAB CHEMISTRY METHOD 05/02/2024 1:07 PM [facility] Potassium 3.5 3.5 - 5.5 mmol/L LAB CHEMISTRY METHOD 05/02/2024 1:07 PM [facility] Chloride 101 96 - 110 mmol/L LAB CHEMISTRY METHOD 05/02/2024 1:07 PM [facility] CO2 23 21 - 32 mmol/L LAB CHEMISTRY METHOD 05/02/2024 1:07 PM [facility] Anion Gap 12(H) 3 - 11 LAB CHEMISTRY METHOD 05/02/2024 1:07 PM [facility] Glucose 96 70 - 100 mg/dL LAB CHEMISTRY METHOD 05/02/2024 1:07 PM [facility] BUN 23 5 - 25 mg/dL LAB CHEMISTRY METHOD 05/02/2024 1:07 PM [facility] Creatinine 1.38(H) 0.50 - 1.10 mg/dL LAB CHEMISTRY METHOD 05/02/2024 1:07 PM [facility] eGFR 41(L) >=60 mL/min/1. 73m2 LAB CHEMISTRY METHOD 05/02/2024 1:07 PM [facility] Comment:Calculation based on the??Chronic Kidney Disease Epidemiology Collaboration (CKD-EPI) equation refit??without adjustment for race. BUN/Creatinine Ratio 16.7 LAB CHEMISTRY METHOD 05/02/2024 1:07 PM [facility] Calcium 9.2 8.5 - 10.5 mg/dL LAB CHEMISTRY METHOD 05/02/2024 1:07 PM [facility] AST (SGOT) 30 10 - 42 unit/L LAB CHEMISTRY METHOD 05/02/2024 1:07 PM [facility] ALT (SGPT) 29 10 - 60 unit/L LAB CHEMISTRY METHOD 05/02/2024 1:07 PM [facility] Alkaline Phosphatase 68 42 - 121 unit/L LAB CHEMISTRY METHOD 05/02/2024 1:07 PM [facility] Total Protein 5.7(L) 6.0 - 8.0 g/dL LAB CHEMISTRY METHOD 05/02/2024 1:07 PM [facility] Albumin 2.4(L) 3.2 - 5.0 g/dL LAB CHEMISTRY METHOD 05/02/2024 1:07 PM [facility] Total Bilirubin 0.4 0.0 - 1.4 mg/dL LAB CHEMISTRY METHOD 05/02/2024 1:07 PM [facility] Blood Venous blood specimen / Unknown Venipuncture / Unknown 05/02/2024 5:51 AM EST 05/02/2024 10:26 AM EST us Damien Kay MD LAB BLOOD ORDERABLES Final Resul t [facility] [address] [place] [address], documented in this encounter Visit Diagnoses Diagnosis Type 2 diabetes mellitus without complications (CMS/HCC V24, CMS/HCC V28) documented in this encounter Care Teams Admin Secretary Relationship Specialty Start Date End Date Damien Kay MD [address] [place] [address], [phone] PCP - General Family Medicine 07/05/24 documented as of this encounter
--- OUTSIDE RECORDS SUMMARY | 2024-09-22 13:10 | XMS_ITS | Encounter Summary ---
Author Organization [facility] Address [address] [place] [phone] Care Team Providers Care Stemhole Borer Name Role Phone Damien Kay MD Primary Care Provider [phone] Encounter Details Date Type Department Care Team (Late st Contact Info) Description 05/07/2024 Lab Requisition [facility] - Main Lab 299 [facility] [place] [address] Damien Kay MD 38 [facility] [address] [place], [address] Type 2 diabetes mellitus without complications [...] K/mcL LAB HEMETOLOGY METHOD 05/09/2024 9:43 AM [facility] RBC 3.80 3.80 - 4.80 M/mcL LAB HEMETOLOGY METHOD 05/09/2024 9:43 AM [facility] Hemoglobin 9.6(L) 11.5 - 16.0 g/dL LAB HEMETOLOGY METHOD 05/09/2024 9:43 AM [facility] Hematocrit 32.0(L) 35.0 - 47.0 % LAB HEMETOLOGY METHOD 05/09/2024 9:43 AM [facility] MCV 84.2 79.0 - 98.0 FL LAB HEMETOLOGY METHOD 05/09/2024 9:43 AM [facility] MCH 25.3(L) 27.0 - 32.0 pcg LAB HEMETOLOGY METHOD 05/09/2024 9:43 AM [facility] MCHC 30.0(L) 32.0 - 37.0 g/dL LAB HEMETOLOGY METHOD 05/09/2024 9:43 AM [facility] RDW 18.6(H) 11.0 - 15.0 % LAB HEMETOLOGY METHOD 05/09/2024 9:43 AM [facility] Platelets 604(H) 130 - 400 K/mcL LAB HEMETOLOGY METHOD 05/09/2024 9:43 AM [facility] MPV 10.4 7.0 - 11.0 FL LAB HEMETOLOGY METHOD 05/09/2024 9:43 AM [facility] NRBC 0.0 <1.0 % LAB HEMETOLOGY METHOD 05/09/2024 9:43 AM [facility] NRBC Absolute 0.00 <0.10 K/mcL LAB HEMETOLOGY METHOD 05/09/2024 9:43 AM [facility] Neutrophils Relative 68.9 % LAB HEMETOLOGY METHOD 05/09/2024 9:43 AM [facility] Lymphocytes Relative 14.8 % LAB HEMETOLOGY METHOD 05/09/2024 9:43 AM [facility] Monocytes Relative 8.9 % LAB HEMETOLOGY METHOD 05/09/2024 9:43 AM [facility] Eosinophils Relative 5.9 % LAB HEMETOLOGY METHOD 05/09/2024 9:43 AM [facility] Basophils Relative 1.0 % LAB HEMETOLOGY METHOD 05/09/2024 9:43 AM [facility] Immature Granulocytes Relative 0.5 % LAB HEMETOLOGY METHOD 05/09/2024 9:43 AM [facility] Neutrophils Absolute 5.95 1.50 - 7.00 K/mcL LAB HEMETOLOGY METHOD 05/09/2024 9:43 AM [facility] Lymphocytes Absolute 1.28 1.00 - 5.00 K/mcL LAB HEMETOLOGY METHOD 05/09/2024 9:43 AM [facility] Monocytes Absolute 0.77 0.20 - 1.00 K/mcL LAB HEMETOLOGY METHOD 05/09/2024 9:43 AM [facility] Eosinophils Absolute 0.51(H) 0.00 - 0.50 K/mcL LAB HEMETOLOGY METHOD 05/09/2024 9:43 AM [facility] Basophils Absolute 0.09 0.00 - 0.20 K/mcL LAB HEMETOLOGY METHOD 05/09/2024 9:43 AM [facility] Immature Granulocytes Absolute 0.04(H) 0.00 - 0.03 K/mcL LAB HEMETOLOGY METHOD 05/09/2024 9:43 AM [facility] Blood Venous blood specimen / Unknown Venipuncture / Unknown 05/09/2024 4:44 AM EST 05/09/2024 9:34 AM EST us Damien Kay MD LAB BLOOD ORDERABLES Final Resul t [facility] [address] [place] [address], [place] [phone] * (ABNORMAL) Comprehensive metabolic panel (05/09/2024 4:44 AM EST) Sodium 134 133 - 145 mmol/L LAB CHEMISTRY METHOD 05/09/2024 10:12 AM [facility] Potassium 3.7 3.5 - 5.5 mmol/L LAB CHEMISTRY METHOD 05/09/2024 10:12 AM [facility] Chloride 97 96 - 110 mmol/L LAB CHEMISTRY METHOD 05/09/2024 10:12 AM [facility] CO2 29 21 - 32 mmol/L LAB CHEMISTRY METHOD 05/09/2024 10:12 AM [facility] Anion Gap 8 3 - 11 LAB CHEMISTRY METHOD 05/09/2024 10:12 AM [facility] Glucose 84 70 - 100 mg/dL LAB CHEMISTRY METHOD 05/09/2024 10:12 AM [facility] BUN 23 5 - 25 mg/dL LAB CHEMISTRY METHOD 05/09/2024 10:12 AM [facility] Creatinine 1.28(H) 0.50 - 1.10 mg/dL LAB CHEMISTRY METHOD 05/09/2024 10:12 AM [facility] eGFR 45(L) >=60 mL/min/1. 73m2 LAB CHEMISTRY METHOD 05/09/2024 10:12 AM [facility] Comment:Calculation based on the??Chronic Kidney Disease Epidemiology Collaboration (CKD-EPI) equation refit??without adjustment for race. BUN/Creatinine Ratio 18.0 LAB CHEMISTRY METHOD 05/09/2024 10:12 AM [facility] Calcium 8.9 8.5 - 10.5 mg/dL LAB CHEMISTRY METHOD 05/09/2024 10:12 AM [facility] AST (SGOT) 22 10 - 42 unit/L LAB CHEMISTRY METHOD 05/09/2024 10:12 AM [facility] ALT (SGPT) 20 10 - 60 unit/L LAB CHEMISTRY METHOD 05/09/2024 10:12 AM [facility] Alkaline Phosphatase 72 42 - 121 unit/L LAB CHEMISTRY METHOD 05/09/2024 10:12 AM [facility] Total Protein 6.0 6.0 - 8.0 g/dL LAB CHEMISTRY METHOD 05/09/2024 10:12 AM [facility] Albumin 2.4(L) 3.2 - 5.0 g/dL LAB CHEMISTRY METHOD 05/09/2024 10:12 AM [facility] Total Bilirubin 0.4 0.0 - 1.4 mg/dL LAB CHEMISTRY METHOD 05/09/2024 10:12 AM [facility] Blood Venous blood specimen / Unknown Venipuncture / Unknown 05/09/2024 4:44 AM EST 05/09/2024 9:34 AM EST us Damien Kay MD LAB BLOOD ORDERABLES Final Resul t [facility] [address] [place] [address], documented in this encounter Visit Diagnoses Diagnosis Type 2 diabetes mellitus without complications (CMS/HCC V24, CMS/HCC V28) documented in this encounter Care Teams Stemhole Borer Relationship Specialty Start Date End Date Damien Kay MD [address] [place] [address], [phone] PCP - General Family Medicine 07/05/24 documented as of this encounter
--- OUTSIDE RECORDS SUMMARY | 2024-09-22 13:10 | XMS_ITS | Encounter Summary ---
Author Organization [facility] Address [address] [place] [phone] Care Team Providers Care City Library Director Name Role Phone Damien Kay MD Primary Care Provider [phone] Encounter Details Date Type Department Care Team (Latest Contact Info) Description 07/05/2024 Lab Requisition [facility] - Main Lab 299 [facility] [place] [address] Damien Kay MD 38 [facility] [address] [place], [address] Heart failure, unspecified (CMS/HCC V24, CMS/HCC [...] auto differential (07/06/2024 7:59 AM EST) Pathologist [facility] WBC 8.6 4.8 - 10.8 K/mcL LAB HEMETOLOGY METHOD 07/06/2024 1:09 PM [facility] RBC 3.00(L) 3.80 - 4.80 M/mcL LAB HEMETOLOGY METHOD 07/06/2024 1:09 PM [facility] Hemoglobin 8.6(L) 11.5 - 16.0 g/dL LAB HEMETOLOGY METHOD 07/06/2024 1:09 PM [facility] Hematocrit 28.3(L) 35.0 - 47.0 % LAB HEMETOLOGY METHOD 07/06/2024 1:09 PM [facility] MCV 95.6 79.0 - 98.0 FL LAB HEMETOLOGY METHOD 07/06/2024 1:09 PM [facility] MCH 29.1 27.0 - 32.0 pcg LAB HEMETOLOGY METHOD 07/06/2024 1:09 PM [facility] MCHC 30.4(L) 32.0 - 37.0 g/dL LAB HEMETOLOGY METHOD 07/06/2024 1:09 PM [facility] RDW 24.3(H) 11.0 - 15.0 % LAB HEMETOLOGY METHOD 07/06/2024 1:09 PM [facility] Platelets 588(H) 130 - 400 K/mcL LAB HEMETOLOGY METHOD 07/06/2024 1:09 PM [facility] MPV 11.2(H) 7.0 - 11.0 FL LAB HEMETOLOGY METHOD 07/06/2024 1:09 PM [facility] NRBC 0.0 <1.0 % LAB HEMETOLOGY METHOD 07/06/2024 1:09 PM [facility] NRBC Absolute 0.00 <0.10 K/mcL LAB HEMETOLOGY METHOD 07/06/2024 1:09 PM [facility] Neutrophils Relative 64.9 % LAB HEMETOLOGY METHOD 07/06/2024 1:09 PM [facility] Lymphocytes Relative 21.9 % LAB HEMETOLOGY METHOD 07/06/2024 1:09 PM [facility] Monocytes Relative 9.6 % LAB HEMETOLOGY METHOD 07/06/2024 1:09 PM [facility] Eosinophils Relative 1.6 % LAB HEMETOLOGY METHOD 07/06/2024 1:09 PM [facility] Basophils Relative 1.5 % LAB HEMETOLOGY METHOD 07/06/2024 1:09 PM [facility] Immature Granulocytes Relative 0.5 % LAB HEMETOLOGY METHOD 07/06/2024 1:09 PM [facility] Neutrophils Absolute 5.61 1.50 - 7.00 K/mcL LAB HEMETOLOGY METHOD 07/06/2024 1:09 PM [facility] Lymphocytes Absolute 1.89 1.00 - 5.00 K/mcL LAB HEMETOLOGY METHOD 07/06/2024 1:09 PM EST [facility] Monocytes Absolute 0.83 0.20 - 1.00 K/mcL LAB HEMETOLOGY METHOD 07/06/2024 1:09 PM EST [facility] Eosinophils Absolute 0.14 0.00 - 0.50 K/[facility] LAB HEMETOLOGY METHOD 07/06/2024 1:09 PM EST [facility] Basophils Absolute 0.13 0.00 - 0.20 K/[facility] LAB HEMETOLOGY METHOD 07/06/2024 1:09 PM EST [facility] Immature Granulocytes Absolute 0.04(H) 0.00 - 0.03 K/[facility] LAB HEMETOLOGY METHOD 07/06/2024 1:09 PM [facility] Blood Venous blood specimen / Unknown Venipuncture / Unknown 07/06/2024 7:59 AM EST 07/06/2024 11:28 AM EST us Damien Kay MD LAB BLOOD ORDERABLES Final Resul t Performing Organization Address City/[facility]/ZIP Co de Phone Number [facility] [address] [place] [address], * (ABNORMAL) B-type natriuretic peptide (07/06/2024 7:59 AM EST) BNP 567(H) <=100 pcg/mL LAB CHEMISTRY METHOD 07/06/2024 1:01 PM EST [facility] Blood Venous blood specimen / Unknown Venipuncture / Unknown 07/06/2024 7:59 AM EST 07/06/2024 11:28 AM EST Damien Kay MD LAB BLOOD ORDERABLES Final Resul t [facility] [address] [place] [address], [place] [phone] * Basic metabolic panel (07/06/2024 7:59 AM EST) Sodium 144 133 - 145 mmol/L LAB CHEMISTRY METHOD 07/06/2024 12:25 PM [facility] Potassium 3.5 3.5 - 5.5 mmol/L LAB CHEMISTRY METHOD 07/06/2024 12:25 PM [facility] Chloride 109 96 - 110 mmol/L LAB CHEMISTRY METHOD 07/06/2024 12:25 PM [facility] CO2 25 21 - 32 mmol/L LAB CHEMISTRY METHOD 07/06/2024 12:25 PM [facility] Anion Gap 10 3 - 11 LAB CHEMISTRY METHOD 07/06/2024 12:25 PM [facility] Glucose 82 70 - 100 mg/dL LAB CHEMISTRY METHOD 07/06/2024 12:25 PM [facility] BUN 12 5 - 25 mg/dL LAB CHEMISTRY METHOD 07/06/2024 12:25 PM [facility] Creatinine 0.77 0.50 - 1.10 mg/dL LAB CHEMISTRY METHOD 07/06/2024 12:25 PM [facility] eGFR 82 >=60 mL/min/1. 73m2 LAB CHEMISTRY METHOD 07/06/2024 12:25 PM [facility] Comment:Calculation based on the??Chronic Kidney Disease Epidemiology Collaboration (CKD-EPI) equation refit??without adjustment for race. BUN/Creatinine Ratio 15.6 LAB CHEMISTRY METHOD 07/06/2024 12:25 PM [facility] Calcium 9.1 8.5 - 10.5 mg/dL LAB CHEMISTRY METHOD 07/06/2024 12:25 PM [facility] Blood Venous blood specimen / Unknown Venipuncture / Unknown 07/06/2024 7:59 AM EST 07/06/2024 11:28 AM EST us Damien Kay MD LAB BLOOD ORDERABLES Final Resul t [facility] [address] [place] [address], [place] [phone] * (ABNORMAL) Complete blood count (07/06/2024 7:59 AM EST) WBC 8.6 4.8 - 10.8 K/mcL LAB HEMETOLOGY METHOD 07/06/2024 1:09 PM [facility] RBC 3.00(L) 3.80 - 4.80 M/mcL LAB HEMETOLOGY METHOD 07/06/2024 1:09 PM [facility] Hemoglobin 8.6(L) 11.5 - 16.0 g/dL LAB HEMETOLOGY METHOD 07/06/2024 1:09 PM [facility] Hematocrit 28.3(L) 35.0 - 47.0 % LAB HEMETOLOGY METHOD 07/06/2024 1:09 PM [facility] MCV 95.6 79.0 - 98.0 FL LAB HEMETOLOGY METHOD 07/06/2024 1:09 PM [facility] MCH 29.1 27.0 - 32.0 pcg LAB HEMETOLOGY METHOD 07/06/2024 1:09 PM [facility] MCHC 30.4(L) 32.0 - 37.0 g/dL LAB HEMETOLOGY METHOD 07/06/2024 1:09 PM [facility] RDW 24.3(H) 11.0 - 15.0 % LAB HEMETOLOGY METHOD 07/06/2024 1:09 PM [facility] Platelets 588(H) 130 - 400 K/mcL LAB HEMETOLOGY METHOD 07/06/2024 1:09 PM [facility] MPV 11.2(H) 7.0 - 11.0 FL LAB HEMETOLOGY METHOD 07/06/2024 1:09 PM EST [facility] NRBC 0.0 <1.0 % LAB HEMETOLOGY METHOD 07/06/2024 1:09 PM EST [facility] NRBC Absolute 0.00 <0.10 K/mcL LAB HEMETOLOGY METHOD 07/06/2024 1:09 PM EST [facility] Blood Venous blood specimen / Unknown Venipuncture / Unknown 07/06/2024 7:59 AM EST 07/06/2024 11:28 AM EST us Damien Kay MD LAB BLOOD ORDERABLES Final Resul t [facility] [address] [place] [address], documented in this encounter Visit Diagnoses Diagnosis Heart failure, unspecified (CMS/HCC V24, CMS/HCC V28) Heart failure, unspecified Sepsis, unspecified organism (CMS/HCC V24, CMS/HCC V28) Hyperlipidemia, unspecified Type 2 diabetes mellitus without complications (CMS/HCC V24, CMS/HCC V28) Other cerebrovascular disease documented in this encounter Care Teams City Library Director Relationship Specialty Start Date End Date Damien Kay MD [address] [place] [phone] PCP - General Family Medicine 07/05/24 documented as of this encounter
--- OUTSIDE RECORDS SUMMARY | 2024-09-22 13:10 | XMS_ITS | Encounter Summary ---
Author Organization [facility] Address [address] [place] [phone] Care Team Providers Care Fire Protection Inspector Name Role Phone Damien Kay MD Primary Care Provider [phone] Encounter Details Date Type Department Care Team (Late st Contact Info) Description 09/06/2024 Lab Requisition [facility] - Main Lab 299 [facility] [place] [address] Damien Kay MD 38 [facility] 204 [place], [address] Heart failure, unspecified (CMS/HCC V24, CMS/HCC [...] Associated Diagnosis Comments COMPLETE BLOOD COUNT Routine 09/07/2024 6:05 AM EDT Heart failure, unspecified (CMS/HCC V24, CMS/HCC V28) Sepsis, unspecified organism (CMS/HCC V24, CMS/HCC V28) Hyperlipidemia, unspecified B-TYPE NATRIURETIC PEPTIDE Routine 09/07/2024 6:05 AM EDT Heart failure, unspecified (CMS/HCC V24, CMS/HCC V28) Sepsis, unspecified organism (CMS/HCC V24, CMS/HCC V28) Hyperlipidemia, unspecified BASIC METABOLIC PANEL Routine 09/07/2024 6:05 AM EDT Heart failure, unspecified ([facility] V24, [facility] V28) Sepsis, unspecified organism ([facility] V24, [facility] V28) Hyperlipidemia, unspecified documented in this encounter Results * (ABNORMAL) B-type natriuretic peptide (09/07/2024 6:05 AM EDT) Pathologist [facility] BNP 1,334(H) <=100 pcg/mL LAB CHEMISTRY METHOD 09/07/2024 12:40 PM EDT [facility] Blood Venous blood specimen / Unknown Venipuncture / Unknown 09/07/2024 6:05 AM EDT 09/07/2024 11:28 AM EDT us Damien Kay MD LAB BLOOD ORDERABLES Final Resul t [facility] [address] [place] [address], [place] [phone] * Basic metabolic panel (09/07/2024 6:05 AM EDT) [facility] Sodium 139 133 - 145 mmol/L LAB CHEMISTRY METHOD 09/07/2024 12:17 PM EDT [facility] Potassium 3.8 3.5 - 5.5 mmol/L LAB CHEMISTRY METHOD 09/07/2024 12:17 PM EDT [facility] Chloride 108 96 - 110 mmol/L LAB CHEMISTRY METHOD 09/07/2024 12:17 PM T [facility] CO2 28 21 - 32 mmol/L LAB CHEMISTRY METHOD 09/07/2024 12:17 PM T [facility] Anion Gap 3 3 - 11 LAB CHEMISTRY METHOD 09/07/2024 12:17 PM [facility] Glucose 79 70 - 100 mg/dL LAB CHEMISTRY METHOD 09/07/2024 12:17 PM T [facility] BUN 14 5 - 25 mg/dL LAB CHEMISTRY METHOD 09/07/2024 12:17 PM EDT [facility] Creatinine 0.98 0.50 - 1.10 mg/dL LAB CHEMISTRY METHOD 09/07/2024 12:17 PM EDT [facility] eGFR 61 >=60 mL/min/1. 73m2 LAB CHEMISTRY METHOD 09/07/2024 12:17 PM EDT [facility] Comment:Calculation based on the??Chronic Kidney Disease Epidemiology Collaboration (CKD-EPI) equation refit??without adjustment for race. BUN/Creatinine Ratio 14.3 LAB CHEMISTRY METHOD 09/07/2024 12:17 PM EDT [facility] Calcium 8.6 8.5 - 10.5 mg/dL LAB CHEMISTRY METHOD 09/07/2024 12:17 PM EDT [facility] Blood Venous blood specimen / Unknown Venipuncture / Unknown 09/07/2024 6:05 AM EDT 09/07/2024 11:30 AM EDT us Damien Kay MD LAB BLOOD ORDERABLES Final Resul t [facility] [address] [place] [address], [place] [phone] * (ABNORMAL) Complete blood count (09/07/2024 6:05 AM EDT) WBC 7.2 4.8 - 10.8 K/mcL LAB HEMETOLOGY METHOD 09/07/2024 12:30 PM EDT [facility] RBC 2.20(L) 3.80 - 4.80 M/mcL LAB HEMETOLOGY METHOD 09/07/2024 12:30 PM EDT [facility] Hemoglobin 6.1(LL) 11.5 - 16.0 g/dL LAB HEMETOLOGY METHOD 09/07/2024 12:30 PM EDT [facility] Hematocrit 20.8(L) 35.0 - 47.0 % LAB HEMETOLOGY METHOD 09/07/2024 12:30 PM EDT [facility] MCV 95.9 79.0 - 98.0 FL LAB HEMETOLOGY METHOD 09/07/2024 12:30 PM EDT [facility] MCH 28.8 27.0 - 32.0 pcg LAB HEMETOLOGY METHOD 09/07/2024 12:30 PM EDT [facility] MCHC 30.0(L) 32.0 - 37.0 g/dL LAB HEMETOLOGY METHOD 09/07/2024 12:30 PM EDT [facility] RDW 16.5(H) 11.0 - 15.0 % LAB HEMETOLOGY METHOD 09/07/2024 12:30 PM EDT [facility] Platelets 469(H) 130 - 400 K/mcL LAB HEMETOLOGY METHOD 09/07/2024 12:30 PM EDT [facility] MPV 10.7 7.0 - 11.0 FL LAB HEMETOLOGY METHOD 09/07/2024 12:30 PM EDT [facility] NRBC 0.0 <1.0 % LAB HEMETOLOGY METHOD 09/07/2024 12:30 PM EDT [facility] NRBC Absolute 0.00 <0.10 K/mcL LAB HEMETOLOGY METHOD 09/07/2024 12:30 PM EDT [facility] Blood Venous blood specimen / Unknown Venipuncture / Unknown 09/07/2024 6:05 AM EDT 09/07/2024 11:29 AM EDT us Damien Kay MD LAB BLOOD ORDERABLES Final Resul t [facility] [address] [place] [address], documented in this encounter Visit Diagnoses Diagnosis Heart failure, unspecified ([facility] V24, [facility] V28) Heart failure, unspecified Sepsis, unspecified organism ([facility] V24, [facility] V28) Hyperlipidemia, unspecified documented in this encounter Care Teams Fire Protection Inspector Relationship Specialty Start Date End Date Damien Kay MD [address] [place] [address], [phone] PCP - General Family Medicine 07/05/24 documented as of this encounter
--- OUTSIDE RECORDS SUMMARY | 2024-09-22 13:11 | XMS_ITS | Encounter Summary ---
Author Organization [facility] Address [address] [place] [phone] Care Team Providers Care Rags Laborer Name Role Phone Damien Kay MD Primary Care Provider [phone] Encounter Details Date Type Department Care Team (Late st Contact Info) Description 08/16/2024 Lab Requisition [facility] - Main Lab 299 [facility] [place] [address] Damien Kay MD 38 [facility] 204 [place], [phone] Type 2 diabetes mellitus without complications [...] natriuretic peptide (08/17/2024 8:38 AM EDT) Pathologist [facility] BNP 1,015(H) <=100 pcg/mL LAB CHEMISTRY METHOD 08/17/2024 1:25 PM EDT [facility] Blood Venous blood specimen / Unknown Venipuncture / Unknown 08/17/2024 8:38 AM EDT 08/17/2024 12:11 PM EDT us Damien Kay MD LAB BLOOD ORDERABLES Final Resul t [facility] [address] [place] [address], [place] [phone] * (ABNORMAL) Complete blood count (08/17/2024 8:38 AM EDT) [facility] WBC 5.7 4.8 - 10.8 K/mcL LAB HEMETOLOGY METHOD 08/17/2024 12:42 PM EDT [facility] RBC 2.50(L) 3.80 - 4.80 M/mcL LAB HEMETOLOGY METHOD 08/17/2024 12:42 PM EDT [facility] Hemoglobin 7.5(L) 11.5 - 16.0 g/dL LAB HEMETOLOGY METHOD 08/17/2024 12:42 PM EDT [facility] Hematocrit 23.9(L) 35.0 - 47.0 % LAB HEMETOLOGY METHOD 08/17/2024 12:42 PM [facility] MCV 96.0 79.0 - 98.0 FL LAB HEMETOLOGY METHOD 08/17/2024 12:42 PM [facility] MCH 30.1 27.0 - 32.0 pcg LAB HEMETOLOGY METHOD 08/17/2024 12:42 PM [facility] MCHC 31.4(L) 32.0 - 37.0 g/dL LAB HEMETOLOGY METHOD 08/17/2024 12:42 PM [facility] RDW 14.9 11.0 - 15.0 % LAB HEMETOLOGY METHOD 08/17/2024 12:42 PM [facility] Platelets 588(H) 130 - 400 K/mcL LAB HEMETOLOGY METHOD 08/17/2024 12:42 PM [facility] MPV 10.5 7.0 - 11.0 FL LAB HEMETOLOGY METHOD 08/17/2024 12:42 PM [facility] NRBC 0.0 <1.0 % LAB HEMETOLOGY METHOD 08/17/2024 12:42 PM [facility] NRBC Absolute 0.00 <0.10 K/mcL LAB HEMETOLOGY METHOD 08/17/2024 12:42 PM [facility] Blood Venous blood specimen / Unknown Venipuncture / Unknown 08/17/2024 8:38 AM EDT 08/17/2024 12:11 PM EDT us Damien Kay MD LAB BLOOD ORDERABLES Final Resul t [facility] [address] [place] [address], [place] [phone] * Lipid panel with reflex to direct LDL (08/17/2024 8:38 AM EDT) [facility] Signature Cholesterol 118 0 - 200 mg/dL LAB CHEMISTRY METHOD 08/17/2024 12:44 PM EDT [facility] Triglycerides 90 0 - 150 mg/dL LAB CHEMISTRY METHOD 08/17/2024 12:44 PM EDT [facility] HDL 54 >=40 mg/dL LAB CHEMISTRY METHOD 08/17/2024 12:44 PM EDT [facility] LDL Calculated 46 0 - 100 mg/dL LAB CHEMISTRY METHOD 08/17/2024 12:44 PM EDT [facility] VLDL Cholesterol Moi 18 mg/dL LAB CHEMISTRY METHOD 08/17/2024 12:44 PM EDT [facility] Non HDL Chol. (LDL+VLDL) 64 <145 mg/dL LAB CHEMISTRY METHOD 08/17/2024 12:44 PM EDT [facility] Chol/HDL Ratio 2.2 0.0 - 4.4 LAB CHEMISTRY METHOD 08/17/2024 12:44 PM EDT [facility] Blood Venous blood specimen / Unknown Venipuncture / Unknown 08/17/2024 8:38 AM EDT 08/17/2024 12:11 PM EDT us Damien Kay MD LAB BLOOD ORDERABLES Final Resul t [facility] [address] [place] [address], * (ABNORMAL) Comprehensive metabolic panel (08/17/2024 8:38 AM EDT) Sodium 139 133 - 145 mmol/L LAB CHEMISTRY METHOD 08/17/2024 12:44 PM EDT [facility] Potassium 4.2 3.5 - 5.5 mmol/L LAB CHEMISTRY METHOD 08/17/2024 12:44 PM EDT [facility] Chloride 107 96 - 110 mmol/L LAB CHEMISTRY METHOD 08/17/2024 12:44 PM EDT [facility] CO2 25 21 - 32 mmol/L LAB CHEMISTRY METHOD 08/17/2024 12:44 PM [facility] Anion Gap 7 3 - 11 LAB CHEMISTRY METHOD 08/17/2024 12:44 PM [facility] Glucose 145(H) 70 - 100 mg/dL LAB CHEMISTRY METHOD 08/17/2024 12:44 PM [facility] BUN 15 5 - 25 mg/dL LAB CHEMISTRY METHOD 08/17/2024 12:44 PM [facility] Creatinine 0.97 0.50 - 1.10 mg/dL LAB CHEMISTRY METHOD 08/17/2024 12:44 PM [facility] eGFR 62 >=60 mL/min/1. 73m2 LAB CHEMISTRY METHOD 08/17/2024 12:44 PM [facility] Comment:Calculation based on the??Chronic Kidney Disease Epidemiology Collaboration (CKD-EPI) equation refit??without adjustment for race. BUN/Creatinine Ratio 15.5 LAB CHEMISTRY METHOD 08/17/2024 12:44 PM [facility] Calcium 8.5 8.5 - 10.5 mg/dL LAB CHEMISTRY METHOD 08/17/2024 12:44 PM [facility] AST (SGOT) 33 10 - 42 unit/L LAB CHEMISTRY METHOD 08/17/2024 12:44 PM [facility] ALT (SGPT) 30 10 - 60 unit/L LAB CHEMISTRY METHOD 08/17/2024 12:44 PM [facility] Alkaline Phosphatase 63 42 - 121 unit/L LAB CHEMISTRY METHOD 08/17/2024 12:44 PM [facility] Total Protein 5.4(L) 6.0 - 8.0 g/dL LAB CHEMISTRY METHOD 08/17/2024 12:44 PM [facility] Albumin 2.2(L) 3.2 - 5.0 g/dL LAB CHEMISTRY METHOD 08/17/2024 12:44 PM EDT [facility] Total Bilirubin 0.3 0.0 - 1.4 mg/dL LAB CHEMISTRY METHOD 08/17/2024 12:44 PM EDT [facility] Blood Venous blood specimen / Unknown Venipuncture / Unknown 08/17/2024 8:38 AM EDT 08/17/2024 12:11 PM EDT Damien Kay MD LAB BLOOD ORDERABLES Final Resul t [facility] [address] [place] [address], [place] [phone] * Hemoglobin A1c (08/17/2024 8:38 AM EDT) Hemoglobin A1C 4.8 % 08/18/2024 11:23 AM EDT [facility] Mean Bld Glu Estim. 91 mg/dL 08/18/2024 11:23 AM EDT [facility] Blood Venous blood specimen / Unknown Venipuncture / Unknown 08/17/2024 8:38 AM EDT 08/17/2024 12:11 PM EDT Damien Kay MD LAB BLOOD ORDERABLES Final Resul t Performing Organization Address City/[facility]/ZIP Co de Phone Number [facility] [address] [place] [address], [place] [phone] documented in this encounter Visit Diagnoses Diagnosis Type 2 diabetes mellitus without complications (CMS/HCC V24, CMS/HCC V28) Unspecified atrial fibrillation (CMS/HCC V24, CMS/HCC V28) Anemia, unspecified documented in this encounter Care Teams Rags Laborer Relationship Specialty Start Date End Date Damien Kay MD [address] [place] [address], [phone] PCP - General Family Medicine 07/05/24 documented as of this encounter
--- OUTSIDE RECORDS SUMMARY | 2024-09-22 13:11 | XMS_ITS | Data Portability ---
Author Organization [facility] [employer] [facility], Main Office Address [address] [place] [address] Care Team Providers Care Director Of Preclinical Research Name Role Phone KEKE BISHOP - 3RD FLOOR OTHER Assessment No assessment recorded. Plan of Treatment Reminders Order Date Submit Date Provider Last Modified By Organization Details Last Modified Time Details Appointments Acute Rounding Visit 2024 10:58A M Loni Love NP Not available Not available Not available Lab None recorded. Referral None recorded. Procedures None recorded. Surgeries None recorded. Imaging None recorded. Medication Orders None recorded. Patient TargetsNo targets recorded. Patient InstructionsNo instructions recorded. Reason for Referral None Reported. Problems Name Problem SNOMED Code Status Onset Date Resolution Date Notes Provider Name and Address Organization Details Recorded Time Vascular dementia 923147842 Active [address] VI[address]KA JIMÉ[address]Z [address] [facility], [address], [place], [address], [facility] [employer] 0 11:42:15 Diabetes mellitus 50200120 Active 2019 VIELKA JIMÉNEZ [address] [facility], [address], [place], [address], [facility] [employer] 0 11:42:37 Atrial fibrillatio n 43333009 Active 2019 [address]ELKA JIMÉNEZ [address] [facility], [address], [place], [address], [facility] [employer] 0 11:43:55 Recurrent falls 752786389 Active 2019 VIELKA JIMÉNEZ [address], [address], [place], [address], [facility] [employer] 0 11:44:10 Diastolic heart failure 286359496 Active 2019 VIELKA JIMÉNEZ [address], [address], [place], [address], [facility] 0 11:44:39 Hyperlipide keven 98343147 Active 2019 NIVIA JIMÉNEZP [address], [address], [place], [address], [place] [facility] 0 11:45:05 Essential hypertensio n 53581142 Active 2019 NIVIA JIMÉNEZP [address], [place], [address], [place] [facility] 0 11:45:23 History of cerebrovasc ular accident 980785518 Active 2019 NIVIA JIMÉNEZP [address], [place], [address], [facility] 0 12:00:03 Insomnia 240928535 Active 2019 VIELKA JIMÉNEZ [address] [facility], [address], [place], [address], [facility] 0 12:06:58 Anxiety 79625293 Active 2019 VIELKA JIMÉNEZ [address] [facility], [address], [place], [address], [facility] 0 12:07:06 Chronic back pain 741795700 Active [address] [facility], [address], [place], [address], [facility] 0 12:18:41 Retention of urine 715997100 Active 2019 NIVIA JIMÉNEZP [address], [address], [place], [address], [facility] 0 12:48:03 Hyperaldost eronism 13543742 Active 2019 NIVIA JIMÉNEZP [address], [address], [place], [address], [facility] 0 13:01:27 Acute depression 873523743 Active 2019 ALFREDO WATERSJEAN PAULNIVIA IBRAHIMP [address], [address], [place], [address], [facility] [employer] [facility] 0 08:47:18 Vitamin D deficiency 74981827 Active 2020 AFLREDO VLADISLAVNIVIAP [address], [address], [place], [address], [facility] [employer] [facility] 1 17:14:42 Gastroesoph ageal reflux disease without esophagitis 813477444 Active 2020 ALFREDO WATERSMARIJA HAND COOPER HELPER [address], [address], [place], [address], [facility] [employer] [facility] 1 17:18:13 Hypokalemia 99516810 Active 2021 Pam Ruiz MD [address], [address], [place], [address], [facility] [employer] [facility] 2 16:55:42 Vertigo 308672337 Active 2021 ALFREDO WATERSMARIJANIVIAP [address], [address], [place], [address], [facility] 2 12:48:50 Anemia 162179511 Active 2022 ANDREA ENGEL NP [address], [address], [place], [address], [facility] [employer] [facility] 3 11:25:41 Mixed anxiety and depressive disorder 787280320 Active 2023 ANDREA ENGEL NP [address], [address], [place], [address], [facility] 4 10:11:52 Acute nontraumati c kidney injury 3542163018421 03 Active 2023 Loni Love NP [address], [address], [place], [address], [facility] 4 13:00:33 Chronic kidney disease 481750099 Active 2023 Loni Love NP [address], [address], [place], [address], [facility] [employer] 4 13:00:40 Problem Notes None recorded. Medical Equipment None Reported. Allergies Allergen ID Allergen Name Allergen Category Reaction Reaction Severity Criticality Documentation Date Start Date Code Code System Note Provider Name and Address Organization Details Recorded Time 91338 aspirin medicatio n Not available Not available Not available 08/05/2019 1191 RxNorm GI upset GERDA LACEY PA-C [address] [facility] [address], [place], [address], [facility] [employer] 3 16:28:56 41391 purified protein derivativ e of tuberculi n medicatio n Not available Not available Not available 08/05/2019 8948 RxNorm VIELKA JIMÉNEZ [address] [facility] [address], [place], [address], [facility] [employer] 0 11:39:31 Medications Name Sig Start Date [...] Updated DateTime 5 165.1 cm 16.3 kg/m2 50193.0 5 g 67 /min 18 /min 97.6 [degF] 96 % 96 % 128 mm[Hg] 66 mm[Hg] Loni Love NP [address] [facility] [address], [place], [address], [facility] [employer] 5 12:02:19 Date Recorded Body height Body mass index (BMI) Body weight Heart rate Respiratory rate Body temperature Oxygen saturation Oxygen saturation in Arterial blood by Pulse oximetry Systolic blood pressure Diastolic blood pressure Provider Name and Address Organization Details Last Updated DateTime 5 165.1 cm 16.3 kg/m2 10290.0 5 g 69 /min 18 /min 97.5 [degF] 95 % 95 % 168 mm[Hg] 58 mm[Hg] Loni Love NP [address] [facility], [address], [place], [address], [facility] 5 09:47:48 Date Recorded Body height Body weight Body mass index (BMI) Heart rate Respiratory rate Body temperature Oxygen saturation Oxygen saturation in Arterial blood by Pulse oximetry Systolic blood pressure Diastolic blood pressure Provider Name and Address Organization Details Last Updated DateTime 5 165.1 cm 78307.2 1 g 16.4 kg/m2 67 /min 18 /min 97.4 [degF] 97 % 97 % 154 mm[Hg] 64 mm[Hg] Loni Love NP [address], [place], [address], [facility] 5 12:37:17 Date Recorded Body height Body weight Heart rate Respiratory rate Body temperature Oxygen saturation Oxygen saturation in Arterial blood by Pulse oximetry Systolic blood pressure Diastolic blood pressure Provider Name and Address Organization Details Last Updated DateTime 5 165.1 cm 07973.0 5 g 67 /min 18 /min 97.9 [degF] 95 % 95 % 142 mm[Hg] 60 mm[Hg] Loni Love NP [address] [facility], [address], [place], [address], [facility] 5 10:35:06 Date Recorded Body height Body weight Body mass index (BMI) Heart rate Respiratory rate Body temperature Oxygen saturation Oxygen saturation in Arterial blood by Pulse oximetry Systolic blood pressure Diastolic blood pressure Provider Name and Address Organization Details Last Updated DateTime 5 165.1 cm 26196.0 5 g 16.3 kg/m2 67 /min 18 /min 97.7 [degF] 95 % 95 % 142 mm[Hg] 60 mm[Hg] Loni Love NP [address], [place], [address], [facility] 5 10:59:00 Social History Question Answer Notes LastModified by Organizat ion Details LastModified Time Tobacco Smoking Status Former Smoker smoked 1 ppd Pam Ruiz MD [address] [facility], [address], [place], [address], [facility] 10/03/2021 16:20:40 Do You Have An Advance Directive? Yes Full Code-use Dialysis, Nutrition And Hydration Short Term - Appears To Have Been Completed Prior To Assignment Of Guardian. [email or web address] Information not available 07/14/2022 What Is Your Level Of Alcohol Consumption? None [id number] Information not available 03/13/2020 How Much Tobacco Do You Chew? None [id number] Information not available 03/13/2020 What Is Your Code Status? Full Code Information not available 10/03/2021 Do You Or Have You Ever Used E-cigarettes Or Vape? Never Used Electronic Cigarettes [id number] Information not available 03/13/2020 Where Do You Live? Other LTC At [facility] Information not available 10/03/2021 Legal Guardian? Yes Decree Uploaded In [facility]; Does Not Authorize Revocation Of HCP. Information not available 10/03/2021 Do You Have A Medical Power Of Business Initiatives Manager? Yes There Is A HCP Uploaded In [facility] But It Is Labeled As Invalid; There Is A HCP Invocation Uploaded In [facility] [email or web address] Information not available 07/14/2022 What Was The Date Of Your Most Recent Tobacco Screening? 09/24/2023 [email or web address] Information not available 09/24/2023 Do You Have An Out Of Hospital DNR? No Information not available 10/03/2021 What Is Your Relationship Status? Information not available 10/03/2021 Do You Or Have You Ever Used Smokeless Tobacco? Never Used Smokeless Tobacco [id number] Information not available 03/13/2020 How Much Tobacco Do You Smoke? No Information not available 10/03/2021 Do You Use Any Illicit Or Recreational Drugs? No Information not available 10/03/2021 Has Tobacco Cessation Counseling Been Provided? No N/A [email or web address] Information not available 07/14/2022 How Many Years Have You Smoked Tobacco? 20 [id number] Information not available 03/13/2020 Do You Or [...] quadrivalent, PF 1 completed Conchita Roy null, [facility] 04/23/2021 11:48:58 Influenza, split virus, quadrivalent, preservative 2 completed Mally Rivera null, [facility] 03/12/2022 13:21:44 COVID-19, mRNA, LNP-S, bivalent, PF, 30 mcg/0.3 mL dose 2 completed GERDA LACEY PA-C [address] [facility], [address], [place], [address], [facility] 05/22/2022 10:21:46 pneumococcal polysaccharide PPV23 2 completed GERDA LACEY PA-C [address] [facility], [address], [place], [address], [facility] 07/14/2022 16:07:16 COVID-19, mRNA, LNP-S, bivalent, PF, 30 mcg/0.3 mL dose 3 completed Yola Allen null, [facility] 07/06/2023 11:54:06 Influenza, split virus, quadrivalent, preservative 0 completed Conchita Roy null, [facility] 02/29/2020 10:48:11 COVID-19, mRNA, LNP-S, PF, 30 mcg/0.3 mL dose 1 completed VIELKA JIMÉNEZ [address] [facility], [address], [place], [address], [facility] 07/17/2020 18:20:26 COVID-19, mRNA, LNP-S, PF, 30 mcg/0.3 mL dose 1 completed VIELKA JIMÉNEZ [address] [facility], [address], [place], [address], [facility] 07/17/2020 18:20:39 Pneumococcal conjugate PCV 13 6 completed VIELKA JIMÉNEZ [address] [facility], [address], [place], [address], [facility] [employer] [facility] 08/21/2020 18:18:49 pneumococcal polysaccharide PPV23 1 completed VIELKA JIMÉNEZ [address], [address], [place], [address], [facility] [employer] [facility] 08/21/2020 18:19:12 tetanus toxoid, unspecified formulation 6 completed VIELKA JIMÉNEZ [address], [address], [place], [address], [facility] [employer] 08/21/2020 18:19:31 Past Encounters Encounter ID Performer Location Encounter Start Date Encounter Closed Date Diagnosis/Indication Diagnosis SNOMED-CT Code Diagnosis ICD10 Code Diagnosis Note [id number] VIELKA JIMÉNEZ [facility] [address] [address] 08/05/2019 11:38:01 08/16/2019 09:21:13 Recurrent falls 846168018 R29.6 PT/OT eval and treat monitor for safety Diabetes mellitus 424923 09 E11.9 lantus 10 units q am SSI neurontin 100 mg q hs discussed risk vs benefit of neurontin with pt monitor A1c monitor for s/s of hypo/hyper glycemia Acute urin heriberto tract infection 069377347 N30.00 completed rocephin in the hospital monitor for resolution Atrial fibrillation 4943 6004 I48.19 eliquis 5 mg bid metoprolol tartrate 75 mg bid monitor Diastolic heart failure 634734193 I50.32 spironolac tone 25 mg qd potasium chloride 10 meq qd monitor weigh and fluid balance Essential hypertension 08219939 I10 spironolac tone 25 mg qd potasium chloride 10 meq qd norvasc 5 mg qd metoprolol tartrate 75 mg bid monitor b/p and labs Hyperlipidemia 20646058 E78.49 atorvastat in 80 mg qd monitor labs Vascular dementia 115181 004 F01.50 expect decline supportive care monitor for safety psych eval and treat prn History of cerebrovascular accident 647175339 Z86.73 left hemiparesi s and hemiplegia monitor for safety Insomnia 216466845 G47.0 9 melatonin 5 mg q hs monitor sleep Anxiety 91993025 F41.1 clonazepam 1 mg bid prn discussed risk vs benefit of clonazepam with pt monitor anxiety Chronic back pain 800451 002 G89.29 neurontin 100 mg q hs monitor pain Retention of urine 60572 4002 R33.8 detrol LA 4 mg qd hester in place trial removal and monitor may need urology follow up Hyperaldosteronism 17245 004 E26.09 question of this labs pending at labs monitor spironolac tone 25 mg qd monitor [id number] VIELKA JIMÉNEZ [facility] [address] [address] 08/10/2019 11:22:23 08/16/2019 09:52:58 Recurrent falls 093751505 R29.6 PT/OT currently korey lift fearful of falling monitor for safety Fungal inf ection by site 903187725 B37.2 groin and buttocks house antifungal cream rash much improved from last site of it monitor for improvemen t Anxiety 39184967 F41.1 clonazepam 1 mg bid prn anxious about falling monitor anxiety [id number] Damien Kay MD [facility] [address] [address] 08/11/2019 13:57:31 08/16/2019 10:14:24 Acute hypernatremia 8345699 E87.0 see HPImonitor lytes and blood glucose Acute hypokalemia 884677 03 E87.6 see HPI monitor lytes and blood glucoseKcl 10 meq qd Metabolic acidosis due to diabetes mellitus 852839408 E87.2 see HP[facility] qdlispro SS Essential hypertension 45256599 I10 see abovespiro nolactone 25 mg qdnorvasc 5 mg qdmetoprol ol 75 mg bid Atrial fibrillation 4943 6004 I48.0 eliquis 5 mg qdmetoprol ol 75 mg qdmonitor for rate control Vascular dementia 119024 004 F01.50 baseline dementiain voke HCPmonitor for behaviorsp sych eval prn Diastolic heart failure 790541204 I50.32 now on spironolac tone 25 mg qdmonitor respirator y status and renal function History of cerebrovascular accident 016266247 Z86.73 left sided weakness at baselineli pitor 80 mg qdtherapy eval Chronic back pain 941051 002 G89.29 gabapentin 100 mg qdmonitor for sx relief Retention of urine 96860 4002 R33.8 detrol LA 4 mg qdmonitor for sx control [id number] Rachel Merlos [facility] [address] [address] 08/19/2019 15:21:02 08/30/2019 14:24:53 Acute hypernatremia 3908924 E87.0 sodium normalized on 08/04needs repeat labs Acute hypokalemia 342777 03 E87.6 needs repeat labs continue Kcl 10 meq qd Metabolic acidosis due to diabetes mellitus 039589398 E87.2 lantus 10 units qdlispro SSf/u with nephro when able Essential hypertension 36723799 I10 bp normal todayspiro nolactone 25 mg qdnorvasc 5 mg qdmetoprol ol 75 mg bidmonitor bp and labs Atrial fibrillation 4943 6004 I48.0 eliquis 5 mg qdmetoprol ol 75 mg qdmonitor for rate control, bleeding Vascular dementia 595938 004 F01.50 supportive careexpect decline psych eval prn Diastolic heart failure 103274032 I50.32 spironolac tone 25 mg qdmonitor fluid status History of cerebrovascular accident 700438322 Z86.73 left sided weakness at baselineli pitor 80 mg qhsLFTs normal on 08/04 Chronic back pain 831539 002 G89.29 gabapentin 100 mg qdmonitor for sx relief [id number] VIELKA JIMÉNEZ [facility] [address] 09/02/2019 08:12:32 09/12/2019 15:12:44 Vascular dementia 109022948 F01.50 expect decline supportive care monitor for safety HCP invoked psych eval and treat prn unable to do slums because of language and she does not understand the questions Recurrent falls 51508931 2 R29.6 PT/OT as needed currently korey lift monitor for safety Insomnia 089492027 G47.0 9 melatonin 5 mg q hs prn monitor sleep Hyperlipidemia 47133446 E78.49 atorvastat in 80 mg qd monitor labs Hyperaldosteronism 20216 004 E26.09 spironolac tone 25 mg qd monitor Essential hypertension 85383884 I10 spironolac tone 25 mg qd potasium chloride 10 meq qd norvasc 5 mg qd metoprolol tartrate 75 mg bid monitor b/p and labs Diastolic heart failure 980626083 I50.32 spironolac tone 25 mg qd potasium chloride 10 meq qd monitor weight and fluid balance Diabetes mellitus 948551 09 E11.9 lantus 10 units q am finger stick mon, wed and fri in am neurontin 100 mg q hs monitor A1c monitor for s/s of hypo/hyper glycemia Chronic back pain 875869 002 G89.29 neurontin 100 mg q hs ultram 50 mg tid prn monitor pain Atrial fibrillation 4943 6004 I48.19 eliquis 5 mg bid metoprolol tartrate 75 mg bid monitor rate and rhythm Anxiety 38498710 F41.1 clonazepam 1 mg bid prn monitor anxiety psych eval and treat prn Retention of urine 84211 4002 R33.8 detrol LA 4 mg qd urology as needed History of cerebrovascular accident 505054750 Z86.73 left hemiparesi s and hemiplegia monitor for safety [id number] Marita Herrera MD [facility] [address] [address] 10/19/2019 08:53:58 10/21/2019 16:08:00 Atrial fibrillation 59307415 I48.19 apixaban 5 mg bidmetopro lol 75 mg bid for rate controlwil l monitor Chronic back pain 428131 002 G89.29 gabapentin 100 mg at hstramadol 50 mg tid prnwill monitor Diabetes mellitus 297309 09 E11.9 Lantus 10U dailyprese ntly not on sliding scale insulinAcc uchecks have been in mid to low 100swill recheck a1c end of October Diastolic heart failure 058371095 I50.32 aldactone 25 mg dailymetop rolol 75 mg bidwill monitor Essential hypertension 42277058 I10 spironolac tone 25 mg dailymetop rolol 75 mg bidamlodip ine 5 mg dailywill monitor Vascular dementia 119667 004 F01.50 decline expectedwi ll monitor and support as needed Hyperlipidemia 33575541 E78.49 atorvastat in 80 mg dailywill monitor Mixed urin heriberto incontinence 938245129 N39.46 tolterodin e ER 4 mg dailywill monitor Anxiety disorder 8828809 06 F41.8 clonazepam 1 mg bid prnwill monitor [id number] VIELKA JIMÉNEZ [facility] [address] [address] 11/09/2019 08:54:51 11/11/2019 11:59:01 Vascular dementia 908280548 F01.50 expect decline supportive care monitor for safety HCP invoked psych eval and treat prn Recurrent falls 58076322 2 R29.6 PT/OT as needed currently korey lift monitor for safety Insomnia 877860111 G47.0 9 melatonin 5 mg q hs prn monitor sleep Hyperlipidemia 14156864 E78.49 atorvastat in 80 mg qd monitor labs Hyperaldosteronism 33382 004 E26.09 spironolac tone 25 mg qd monitor Essential hypertension 95946341 I10 spironolac tone 25 mg qd potasium chloride 10 meq qd norvasc 5 mg qd metoprolol tartrate 75 mg bid monitor b/p and labs Diastolic heart failure 014667272 I50.32 spironolac tone 25 mg qd potasium chloride 10 meq qd monitor weight and fluid balance Diabetes mellitus 174933 09 E11.9 lantus 10 units q am finger stick mon, wed and fri in am neurontin 100 mg q hs monitor A1c monitor for s/s of hypo/hyper glycemia Chronic back pain 598470 002 G89.29 neurontin 100 mg q hs ultram 50 mg tid prn monitor pain Atrial fibrillation 4943 6004 I48.19 eliquis 5 mg bid metoprolol tartrate 75 mg bid monitor rate and rhythm Anxiety 03360020 F41.1 clonazepam 1 mg bid prn monitor anxiety psych eval and treat prn Retention of urine 79050 4002 R33.8 detrol LA 4 mg qd urology as needed [id number] Marita Herrera MD [facility] [address] [address] 01/20/2020 08:45:24 01/25/2020 08:57:27 Atrial fibrillation 61196706 I48.19 apixaban 5 mg bidmetopro lol 75 mg bid for rate controlwil l monitor Anxiety 79330274 F41.1 clonazepam 1 mg bid prnwill monitor Chronic back pain 040472 002 G89.29 gabapentin 100 mg at hstramadol 25 mg tid prnwill monitor Diabetes mellitus 346833 09 E11.9 Lantus 10U dailyAccuc hecks 3 times a week. Diastolic heart failure 692256759 I50.32 aldactone 25 mg dailymetop rolol 75 mg bidwill monitor Essential hypertension 17836749 I10 spironolac tone 25 mg dailymetop rolol 75 mg bidamlodip ine 5 mg dailywill monitor Hyperlipidemia 53941185 E78.49 atorvastat in 80 mg dailywill monitor Recurrent falls 61817942 2 R29.6 will try to minimize fall risk Retention of urine 17157 4002 R39.198 tolterodin e ER 4 mg dailywill monitor Vascular dementia 248844 004 F01.50 decline expectedwi ll monitor and support as needed Gastroesop hageal reflux disease without esophagitis 240444684 K21.9 omeprazole 20 mg dailywill monitor Depressive disorder 3548 9007 F32.89 consider trial duloxetine will monitor [id number] VIELKA JIMÉNEZ [facility] [address] [address] 02/14/2020 08:45:57 02/16/2020 13:13:03 Acute depression 844631277 F32.89 psych consultedc annot add zoloft 25 mg qd as was hcp and no secondary hcp listedshe also states she does not want anythingmo nitor mood [id number] VIELKA JIMÉNEZ [facility] [address] [address] 03/19/2020 08:17:39 03/21/2020 12:30:24 Vascular dementia 844717133 F01.50 expect decline supportive care monitor for safety HCP invoked psych eval and treat prn Hyperaldosteronism 30108 004 E26.09 spironolac tone 25 mg qd monitor Diastolic heart failure 828170193 I50.32 spironolac tone 25 mg qd potasium chloride 10 meq qd monitor weight and fluid balance Atrial fibrillation 4943 6004 I48.19 eliquis 5 mg bid metoprolol tartrate 75 mg bid monitor rate and rhythm [id number] Marita Herrera MD [facility] [address] [address] 05/17/2020 07:15:47 05/22/2020 08:44:23 Anxiety 54135167 F41.1 clonazepam 1 mg bid prnwill monitor Atrial fibrillation 4943 6004 I48.19 apixaban 5 mg bidmetopro lol 75 mg bid for rate controlwil l monitor Diabetes mellitus 746571 09 E11.9 Lantus 10U dailywill monitor Chronic back pain 522369 002 G89.29 gabapentin 100 mg at hstramadol 25 mg tid prnwill monitor Essential hypertension 51369773 I10 spironolac tone 25 mg dailymetop rolol 75 mg bidamlodip ine 5 mg dailywill monitor Diastolic heart failure 440673909 I50.32 aldactone 25 mg dailymetop rolol 75 mg bidwill monitor Hyperlipidemia 04717773 E78.49 atorvastat in 80 mg dailywill monitor Vascular dementia 330920 004 F01.50 decline expectedwi ll monitor and support as neededsee meds for mixed anxiety/de pressive disorder Retention of urine 48208 4002 R39.198 tolterodin e ER 4 mg dailywill monitor Mixed anxi ety and depressive disorder 433254391 F41.8 clonazepam 1 mg bid prn 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 925514782 E11.9 Lantus 10U daily Gastroesop hageal reflux disease without esophagitis 112749897 K21.9 omeprazole 20 mg dailywill monitor [id number] VIELKA JIMÉNEZ [facility] [address] [address] 07/06/2020 10:34:06 07/09/2020 13:46:54 Vascular dementia 700541948 F01.50 expect decline supportive care monitor for safety HCP invoked psych eval and treat prn Essential hypertension 35921887 I10 spironolac tone 25 mg qd potasium chloride 10 meq qd norvasc 5 mg qd metoprolol tartrate 75 mg bid monitor b/p and labs Diastolic heart failure 883143922 I50.32 spironolac tone 25 mg qd potasium chloride 10 meq qd monitor weight and fluid balance Diabetes mellitus 271255 09 E11.9 lantus 10 units q am finger stick mon, wed and fri in am neurontin 100 mg q hs monitor A1c monitor for s/s of hypo/hyper glycemia Insomnia 270354172 G47.0 9 Increase melatonin from 5 mg to 10 mg Q HS monitor sleep [id number] VIELKA JIMÉNEZ [address] [address] 08/14/2020 11:23:58 08/16/2020 15:45:30 Vascular dementia 716764044 F01.50 expect decline supportive care monitor for safety guardian in place psych eval and treat prn History of cerebrovascular accident 553105839 Z86.73 left hemiparesi s and hemiplegia monitor for safety Essential hypertension 82317472 I10 spironolac tone 25 mg qd potasium chloride 10 meq qd norvasc 5 mg qd metoprolol tartrate 75 mg bid monitor b/p and labs Diastolic heart failure 557429532 I50.32 spironolac tone 25 mg qd potasium chloride 10 meq qd monitor weight and fluid balance Diabetes mellitus 285622 09 E11.9 lantus 10 units qd finger stick mon, wed and fri in am monitor A1c monitor for s/s of hypo/hyper glycemia Chronic back pain 033227 002 G89.29 neurontin 100 mg q hs ultram 25 mg tid prn monitor pain Atrial fibrillation 4943 6004 I48.19 eliquis 5 mg bid metoprolol tartrate 75 mg bid monitor rate and rhythm Anxiety 03557207 F41.1 clonazepam 1 mg bid prn monitor anxiety psych eval and treat prn Acute depression 3982261 08 F32.89 monitor mood psych eval and treat prn Hyperaldosteronism 22489 004 E26.09 spironolac tone 25 mg qd monitor Hyperlipidemia 11494522 E78.49 atorvastat in 80 mg qd monitor labs Insomnia 650762925 G47.0 9 melatonin 10 mg q hs monitor sleep Recurrent falls 23489813 2 R29.6 PT/OT as needed korey lift monitor for safety Retention of urine 04060 4002 R33.8 detrol LA 4 mg qd urology as needed Vitamin D deficiency 347 33972 E56.8 vitamin D3 1000 units qd monitor levels Gastroesop hageal reflux disease without esophagitis 635554094 K21.9 omeprazole 20 mg qd monitor for symptoms [id number] VIELKA JIMÉNEZ [facility] [address] 08/21/2020 11:52:09 08/23/2020 15:40:38 Hyperlipidemia 25775655 E78.49 atorvastat in 80 mg qd monitor labs Diabetes mellitus 712507 09 E11.9 consistent carb diet lantus 10 units qd finger stick mon, wed and fri in am monitor A1c monitor for s/s of hypo/hyper glycemia [id number] Marita Herrera MD [facility] [address] [address] 08/22/2020 08:36:29 08/24/2020 10:53:20 Atrial fibrillation 62028830 I48.19 apixaban 5 mg bidmetopro lol 75 mg bid for rate controlwil l monitor Chronic back pain 509514 002 G89.29 gabapentin 100 mg at hstramadol 25 mg tid prnwill monitor Diabetes mellitus 100394 09 E11.9 Lantus 10U dailywill monitor Diastolic heart failure 214747930 I50.32 aldactone 25 mg dailymetop rolol 75 mg bidwill monitor Essential hypertension 50716868 I10 spironolac tone 25 mg dailymetop rolol 75 mg bidamlodip ine 5 mg dailywill monitor Gastroesop hageal reflux disease without esophagitis 370571405 K21.9 omeprazole 20 mg dailywill monitor Hyperlipidemia 28635851 E78.49 atorvastat in 80 mg dailywill monitor Recurrent falls 20072191 2 R29.6 will continue to try to minimize fall risk Retention of urine 51958 4002 R39.198 tolterodin e ER 4 mg dailywill monitor Vascular dementia 196080 004 F01.50 decline expectedwi ll monitor and support as neededsee meds for mixed anxiety/de pressive disorder Vitamin D deficiency 347 94997 E55.9 Mixed anxi ety and depressive disorder 837885483 F41.8 clonazepam 1 mg bid prn gabapentin 100 mg at hs will monitor [id number] VIELKA JIMÉNEZ [facility] [address] 10/12/2020 09:11:10 10/18/2020 16:27:34 Vascular dementia 646957568 F01.50 expect decline supportive care monitor for safety guardian in place psych eval and treat prn Essential hypertension 63193507 I10 spironolac tone 25 mg qd potasium chloride 10 meq qd norvasc 5 mg qd metoprolol tartrate 75 mg bid monitor b/p and labs Diastolic heart failure 407736304 I50.32 spironolac tone 25 mg qd potasium chloride 10 meq qd monitor weight and fluid balance Atrial fibrillation 4943 6004 I48.19 eliquis 5 mg bid metoprolol tartrate 75 mg bid monitor rate and rhythm [id number] [facility] [address] 12/07/2020 06:49:23 12/09/2020 20:57:22 Atrial fibrillation 94614399 I48.19 apixaban 5 mg bidmetopro lol 75 mg bid for rate controlwil l monitor Chronic back pain 691158 002 G89.29 gabapentin 100 mg at hstramadol 25 mg tid prnwill monitor Diabetes mellitus 295964 09 E11.9 Lantus 10U dailywill monitor Diastolic heart failure 936361146 I50.32 aldactone 25 mg dailymetop rolol 75 mg bidwill monitor Essential hypertension 73493478 I10 spironolac tone 25 mg dailymetop rolol 75 mg bidamlodip ine 5 mg dailywill monitor Gastroesop hageal reflux disease without esophagitis 169900215 K21.9 omeprazole 20 mg dailywill monitor Hyperlipidemia 64960493 E78.49 atorvastat in 80 mg dailywill monitor Recurrent falls 82707938 2 R29.6 will continue to try to minimize fall risk Retention of urine 10176 4002 R39.198 tolterodin e ER 4 mg dailywill monitor Vascular dementia 339579 004 F01.50 decline expectedwi ll monitor and support as neededsee meds for mixed anxiety/de pressive disorder History of cerebrovascular accident 284995579 Z86.73 atorvastat in 80 mg dailyapixa ban 5 mg bidwill monitor Mixed anxi ety and depressive disorder 510100493 F41.8 clonazepam 1 mg bid prn gabapentin 100 mg at hssertrali ne 25 mg dailywill monitor [id number] ANDREA ENGEL NP [facility] [address] [place] [address] 01/24/2021 11:35:47 01/28/2021 14:43:59 Diabetes mellitus 04861535 E11.9 Increase in A1C 7.2 -> 9.4%BID BS not bad - mostly 100s, occ. 200s.Britney nue lantus 10 daily - no change in dose at this time as BS acceptable .Continue to monitor BS, labs, s/s hyper/hypo glycemiaCo nsider dose increase if BS readings increase [id number] BRADLEY BRENNAN NP [facility] [address] [place] [address] 02/01/2021 13:21:30 02/04/2021 15:22:35 Atrial fibrillation 72903682 I48.19 eliquis 5 mg bidmonitor heart rate Anxiety 80532238 F41.1 zoloft 25 mg dailypsych prn Acute depression 4453113 08 F32.89 zoloft 25 mg dailypsych prn Chronic back pain 069867 002 G89.29 gabapentin 100 mg at hstramadol 25 mg tid prnwill monitor Diabetes mellitus 801185 09 E11.9 glargine 10 units dailymonit or glucose Diastolic heart failure 478204323 I50.32 kcl 10 meq daily Essential hypertension 84927170 I10 amlodipine 5 mg dailymonit or bp Gastroesop hageal reflux disease without esophagitis 952252961 K21.9 omeprazole 20 mg daily History of cerebrovascular accident 661230793 Z86.73 atorvastat in 80 mg dailyeliqu is 5 mg bid Hyperaldosteronism 11307 004 E26.09 aldactone 25 mg daily Hyperlipidemia 04590740 E78.49 atorvastat in 80 mg daily Insomnia 177595814 G47.0 9 melatonin 10 mg hsgabapent in 100 mg hs Recurrent falls 32517025 2 R29.6 PT OT eval and treat prnfall precaution sfrequent safety checks Retention of urine 68083 4002 R39.198 detrol 4 mg daily Vascular dementia 358823 004 F01.50 decline expectedmo nitor and support as needed Vitamin D deficiency 347 99739 E55.9 D3 1000 daily [id number] Marita Herrera MD [facility] [address] [address] 03/27/2021 08:35:02 03/29/2021 10:13:59 Mixed anxiety and depressive disorder 988338968 F41.8 clonazepam 1 mg bid prn gabapentin 100 mg at hssertrali ne 25 mg dailywill monitor Diastolic heart failure 456273868 I50.32 aldactone 25 mg dailymetop rolol 75 mg bidwill monitor Essential hypertension 69128013 I10 spironolac tone 25 mg dailymetop rolol 75 mg bidamlodip ine 5 mg dailywill monitor Gastroesop hageal reflux disease without esophagitis 824806380 K21.9 omeprazole 20 mg dailywill monitor History of cerebrovascular accident 686660544 Z86.73 atorvastat in 80 mg dailyapixa ban 5 mg bidwill monitor Diabetes mellitus 213061 09 E11.9 Lantus 10U dailywill monitor Chronic back pain 913805 002 G89.29 gabapentin 100 mg at hstramadol 25 mg tid prnwill monitor Atrial fibrillation 4943 6004 I48.19 apixaban 5 mg bidmetopro lol 75 mg bid for rate controlwil l monitor Mixed urin heriberto incontinence 739529212 N39.46 tolterodin e ER 4 mg dailywill monitor [id number] ANDREA ENGEL NP [facility] [address] [address] 05/23/2021 14:48:56 05/27/2021 14:45:29 Mixed anxiety and depressive disorder 017584481 F41.8 clonazepam 1 mg bid prn gabapentin 100 mg at hssertrali ne 25 mg dailywill monitorpsy ch eval prn Diastolic heart failure 679515232 I50.32 continue:a ldactone 25 mg dailymetop rolol 75 mg bidwill monitor VS, CP status for change/dec ompensatio nCheck CBC, CMP thursday x1 Essential hypertension 90331550 I10 spironolac tone 25 mg dailymetop rolol 75 mg bidamlodip ine 5 mg dailywill monitor VS and adjust meds prnCheck CBC, CMP x 1 Gastroesop hageal reflux disease without esophagitis 760861330 K21.9 omeprazole 20 mg dailywill monitor s/s GI sx. History of cerebrovascular accident 973656913 Z86.73 atorvastat in 80 mg dailyapixa ban 5 mg bidwill monitorCMP x 1 thursday Diabetes mellitus 272867 09 E11.9 Lantus 10U dailyLast A1C 9.4, but bid BS checked and were not grossly elevated at the time.Will repeat A1C thursdayCBC, CMP as well. Chronic back pain 332332 002 G89.29 gabapentin 100 mg at hstramadol 25 mg tid prnwill monitor Atrial fibrillation 4943 6004 I48.19 apixaban 5 mg bidmetopro lol 75 mg bid for rate controlwil l monitor CP status. Mixed urin heriberto incontinence 287432447 N39.46 tolterodin e ER 4 mg dailywill monitor [id number] Damien Kay MD [facility] [address] [address] 07/16/2021 12:36:01 07/19/2021 14:59:22 Atrial fibrillation 96205800 I48.19 eliquis 5 mg qdmetoprol ol 75 mg qdmonitor for rate control Essential hypertension 94496004 I10 norvasc 5 mg qdmetoprol ol 75 mg bidaldacto ne 25 mg qdmonitor bp and need to titrate Gastroesop hageal reflux disease without esophagitis 512659796 K21.9 omeprazole 20 mg qdmonitor for effect Insomnia 288548683 G47.0 9 melatonin 10 mg qhsmonitor for effect and need to titrate Vascular dementia 119691 004 F01.50 baseline dementiamo nitor for behaviorsp sych eval prncontinu e supportive care [id number] ANDREA ENGEL NP [facility] [address] [address] 08/15/2021 10:17:54 08/20/2021 08:46:09 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 [id number] VIELKA JIMÉNEZ [facility] [address] [address] 08/16/2021 09:02:41 08/20/2021 08:58:41 Vascular dementia 611018417 F01.50 expect decline supportive care monitor for safety guardian in place psych eval and treat prn History of cerebrovascular accident 409310481 Z86.73 left hemiparesi s and hemiplegia monitor for safety Essential hypertension 61473082 I10 spironolac tone 25 mg qd potasium chloride 10 meq qd norvasc 5 mg qd metoprolol tartrate 75 mg bid monitor b/p and labs Diastolic heart failure 439773102 I50.32 spironolac tone 25 mg qd potasium chloride 10 meq qd monitor weight and fluid balance Diabetes mellitus 213710 09 E11.9 consistent carb diet lantus 10 units qd-will increase to 14 units given elevated a1c finger stick mon, wed and fri in am monitor A1c in 3 months monitor for s/s of hypo/hyper glycemia Chronic back pain 062666 002 G89.29 neurontin 100 mg q hs ultram 25 mg tid prn monitor pain Atrial fibrillation 4943 6004 I48.19 eliquis 5 mg bid metoprolol tartrate 75 mg bid monitor rate and rhythm Anxiety 59841948 F41.1 zoloft 25 mg qd monitor anxiety psych eval and treat prn Gastroesop hageal reflux disease without esophagitis 500546626 K21.9 omeprazole 20 mg qd monitor for symptoms Hyperaldosteronism 17614 004 E26.09 spironolac tone 25 mg qd monitor Hyperlipidemia 32490626 E78.49 atorvastat in 80 mg qd will add fish oil 1000 mg qd monitor labs Insomnia 803237540 G47.0 9 melatonin 10 mg q hs monitor sleep Vitamin D deficiency 347 55786 E55.9 vitamin D3 1000 units qd monitor levels Recurrent falls 21974468 2 R29.6 PT/OT as needed korey lift monitor for safety Retention of urine 33216 4002 R39.198 detrol LA 4 mg qd urology as needed [id number] VIELKA JIM[facility] [address] [place] [address] 09/16/2021 08:45:46 09/18/2021 12:04:33 Diabetes mellitus 70911336 E11.9 consistent carb diet lantus 14 units finger stick q am x 1 week then reassess check A1c around October 16will add metformin 500 mg bid monitor for s/s of hypo/hyper glycemia [id number] ANDREA ENGEL NP [facility] [address] 09/17/2021 14:48:48 09/19/2021 12:25:38 Dermal mycosis 70918437 B36.9 Poor response to nystatinBS elevated recentlyCo ntinue nystatin powder bid and prn x 30 daysKeep areas clean and dry - no brief in bed, and if needed, have it fit loosely to avoid bunching in the [place] area.Treat with diflucan - 200 mg x 1 dose, repeat in 1 wk Monitor closely. [id number] VIELKA JIMÉNEZ [facility] [address] [address] 09/23/2021 08:39:55 09/25/2021 13:40:44 Diabetes mellitus 71452510 E11.9 consistent carb diet lantus 14 units will do finger sticks q am x 1 more week then reassess check A1c around Octoberetformin 500 mg bid monitor for s/s of hypo/hyper glycemia [id number] Pam Ruiz MD [facility] [address] 10/03/2021 16:19:03 10/07/2021 13:57:14 Diabetes mellitus 43145419 E11.9 Accuchecks look better on adjusted meds. Continue lantus 14 U qd and metformin 500 mg BID.Will recheck HgA1C around 1Sugars all <200 since 09/21, so daily checks d/c'd on 09/30Monito r prn. Vascular dementia 947021 004 F01.50 Continues at baselineCo ntinue supportive care, expect decline.HC P invoked, guardian in placeMonit or mood and behaviors. Psych consult prn. History of cerebrovascular accident 946254506 Z86.73 Left hemiparesi s and hemiplegia at baseline.P rovide supportive care.Monit or fo rnew sxs. Essential hypertension 28068646 I10 Had a very elevated SBP 2 weeks ago. Not documented since that time.Will order BP/P weekly.For now will continue spironolac tone 25 mg qd, amlodipine 5 mg qd and metoprolol 75 mg BID.Monito r BP and labs Diastolic heart failure 811425195 I50.32 Appears euvolemic. Continue meds as above.Jadyn tor resp. status, fluid status, wts and labs. Chronic back pain 323128 002 G89.29 Continue gabapentin 100 mg qhs and tramadol 25 mg TID prn.Monito r sxs. Atrial fibrillation 4943 6004 I48.19 Rate mostly in good control on meds as above. Had a pulse of 101 on last checkConti nue eliquis 5 mg BID for ACMonitor HR and bleeding risk. Anxiety 66697050 F41.1 Mood good today.Cont inue sertraline 25 mg qdMonitor mood.Consu lt psych prn Gastroesop hageal reflux disease without esophagitis 430138919 K21.9 Continue omeprazole 20 mg qd Monitor for sxs Hyperaldosteronism 28090 004 E26.09 Continue spironolac tone 25 mg qdMonitor prn. Hyperlipidemia 54062082 E78.49 Continue atorvastat in 80 mg qd and fish oil 1000 mg qdRecheck 10/16 Insomnia 496369720 G47.0 9 Continue melatonin 10 mg qhs Monitor sleep patterns. Vitamin D deficiency 347 23289 E56.8 Continue vitamin D3 1000 IU qd Monitor levels Recurrent falls 37030898 2 R29.6 Refuses to get out of bed.Contin ue fall precaution s.Monitor for safety. Retention of urine 71378 4002 R39.198 Hx of.Continu e detrol LA 4 mg qdMonitor urinary function Hypokalemia 54087453 E87 .6 Continue KCl 10 meq qd.Monitor labs q 3 months and prn. [id number] VIELKA JIMÉNEZ [address] [address] 10/18/2021 11:14:40 10/21/2021 15:47:31 Diabetes mellitus 58593226 E11.9 consistent carb diet lantus 14 units-will increase to 18 units qdA1c 10/16/21 is 9.9 up from 8.2 in July metformin 500 mg bid-will increase to 750 mg bid monitor for s/s of hypo/hyper glycemiare check A1c in 3 months (around January 16) [id number] VIELKA JIMÉNEZ [facility] [address] [address] 11/15/2021 12:01:45 11/19/2021 15:12:03 Hyperlipidemia 83991615 E78.49 atorvastat in 80 mg qd fish oil 1000 mg qd monitor labs-a bit better will just continue to monitor for now [id number] VIELKA JIMÉNEZ [facility] [address] [address] 12/03/2021 11:24:38 12/05/2021 08:26:30 Atrial fibrillation 49490248 I48.19 eliquis 5 mg bid metoprolol tartrate 75 mg bid monitor rate and rhythm Diabetes mellitus 225332 09 E11.9 consistent carb diet lantus 18 units qdmetformi n 750 mg bid monitor for s/s of hypo/hyper glycemiare check A1c in 3 months (around January 16) Essential hypertension 15221527 I10 spironolac tone 25 mg qd potasium chloride 10 meq qd norvasc 5 mg qd metoprolol tartrate 75 mg bid monitor b/p and labs Insomnia 170307079 G47.0 9 melatonin 10 mg q hstrazodon e was 25 mg q hs and increased to 50 mg q hs per psych recommenda tion monitor sleep [id number] Damien Kay MD [facility] [address] [address] 01/22/2022 11:19:40 01/27/2022 14:20:07 Atrial fibrillation 98466508 I48.19 maintained oneliquis 5 mg bidmetopro lol 75 mg qdmonitor for rate control Vascular dementia 743011 004 F01.50 currently stable at baselinemo nitor for behaviorsp sych eval prncontinu e supportive care Gastroesop hageal reflux disease without esophagitis 582638754 K21.9 omeprazole 20 mg qdmonitor for symptom reliefonly complaint is I dont like the food Primary insomnia 3901421 F51.01 improved controlmon itor need to titrate med [id number] VIELKA JIMÉNEZ [facility] [address] [place] [address] 01/24/2022 12:47:54 01/27/2022 15:11:54 Vertigo 276041369 R42 noted vertigo with therapy will add meclizine 25 mg qd prn prior to therapy monitor Anxiety 41016554 F41.1 zoloft 25 mg qd-will increase to 50 mg qd monitor anxiety psych eval and treat prn [id number] [facility] [address] 02/20/2022 12:23:01 02/25/2022 09:50:43 Anemia 705438276 D64.9 macrocytic heme test stools x 3 (on eliquis)co ntinue omeprazole 20 mg dailyPer pt. request will wait a week or 2 before rechecking labs - CBC, Fe profile, etc 03/03Monit or [id number] VIELKA JIMÉNEZ [facility] [address] 03/14/2022 10:45:57 03/19/2022 16:17:29 Essential hypertension 93662193 I10 spironolac tone 25 mg qd potasium chloride 10 meq qd norvasc 5 mg qd metoprolol tartrate 75 mg bid monitor b/p and labs Diabetes mellitus 576471 09 E11.9 consistent carb diet lantus 18 units qdmetformi n 750 mg bid monitor for s/s of hypo/hyper glycemiamo nitor A1c Atrial fibrillation 4943 6004 I48.19 eliquis 5 mg bid metoprolol tartrate 75 mg bid monitor rate and rhythm Vascular dementia 663161 004 F01.50 expect decline supportive care monitor for safety guardian in place psych eval and treat prn Vertigo 839524193 R42 meclizine 25 mg qd prn monitor [id number] Pam Ruiz MD [facility] [address] 05/08/2022 16:23:16 05/15/2022 15:12:18 Essential hypertension 33963946 I10 BP being checked every 2-3 wks, last reading high.For now will continue spironolac tone 25 mg qd, amlodipine 5 mg qd, and metoprolol 75 mg BID.Will request weekly BPs.Monito r labs, due in 07/2022 Diabetes mellitus 756400 09 E11.9 Continue lantus 18 units qd and metformin 750 mg BID.Monito r fingerstic ks prn and HgA1C q 6 months. Atrial fibrillation 4943 6004 I48.19 Rate in good control on meds as above.Cont inue eliquis 5 mg BID for AC.Monitor HR and bleeding risk. Vascular dementia 912548 004 F01.B0 Continues at baselineCo ntinue sertraline 25 mg qd, trazadone 50 mg qhs and gabapentin 100 mg qhs.Contin ue supportive care, expect decline.Rodriguez s guardian.M onitor mood and behaviors. Psych consult prn. Vertigo 890258361 R42 Continue meclizine 25 mg qd prnMonitor sxs. Hypokalemia 70337680 E87 .6 Continue KCl 10 meq qd.Monitor labs yearly and prn. [id number] GERDA LACEY PA-C [facility] [address] [address] 05/22/2022 10:17:55 06/04/2022 20:01:57 Acute COVID-19 3789482117 U07.1 Given that Paxlovid is unavailabl e from the pharmacy, will start molnupirav ir 800 mg po bid x 5 days-start when available- does not require renal dose adjustment and there are no know interactio nsSupporti ve careContac t precaution s per facility protocolFo llo clinically [id number] GERDA LACEY PA-C [facility] [address] [address] 07/14/2022 11:39:18 08/06/2022 12:45:34 Weight loss 53178209 R63.4 Consider d/c non-essent ial meds-Folic acid-Vit D3-Fish oilOn PPI Dyslipidemia 092273819 E 78.5 Fish oilstatin Type 2 [place] betes mellitus with peripheral angiopathy 276629737 E11.51 Last A1c excellent- consider decreasing LantusCons ider change admin time evening metformin to pre-dinner Monitor sugars and adjust meds prnNot on REY/ARB for renal protection -consider adding Vascular d ementia without behavioral disturbance 1740138424 4836451 F01.50 Refused SLUMS [id number] Marita Herrera MD [facility] [address] [address] 09/03/2022 07:53:44 09/05/2022 13:03:42 Vascular dementia 656093006 F01.B0 decline expectedwi ll monitor and support as neededsee meds for mixed anxiety/de pressive disorder Mixed anxi ety and depressive disorder 881971235 F41.8 gabapentin 100 mg at hstrazodon e 50 mg at hssertrali ne 25 mg dailywill monitor Diabetes mellitus 728432 09 E11.9 Lantus 18U dailywill monitor Diastolic heart failure 395045487 I50.32 aldactone 25 mg dailymetop rolol 75 mg bidwill monitor Atrial fibrillation 4943 6004 I48.19 apixaban 5 mg bidmetopro lol 75 mg bid for rate controlwil l monitor Essential hypertension 03918491 I10 spironolac tone 25 mg dailymetop rolol 75 mg bidamlodip ine 5 mg dailywill monitor Hyperlipidemia 73404164 E78.49 atorvastat in 80 mg dailywill monitor History of cerebrovascular accident 161521322 Z86.73 atorvastat in 80 mg dailyapixa ban 5 mg bidwill monitor Chronic pain 60844486 G8 9.29 tramadol 25 mg q8h prngabapen tin 100 mg at hsAPAP Gastroesop hageal reflux disease without esophagitis 867884819 K21.9 omeprazole 20 mg dailywill monitor Retention of urine 92425 4002 R39.198 tolterodin e ER 4 mg dailywill monitor [id number] VIELKA Foy [facility] [address] [address] 09/19/2022 11:40:16 09/24/2022 10:33:30 Vascular dementia 861487020 F01.B0 supportive careexpect declinepsy ch meds as belowmonit or mood Mixed anxi ety and depressive disorder 928664845 F41.8 stable gabapentin 100 mg qhstrazodo ne 50 mg qhssertral ine 25 mg qdmonitor mood Diabetes mellitus 568919 09 E11.9 pt with last A1c done in November 2021 and no BS noted in emarBS bid x 2 weeks then [employer] [id number] on 09/23/22cont inue Lantus 18 units q 1 pmcontinue metformin 750 mg bidmonitor BS and adjust meds prn Diastolic heart failure 370012683 I50.32 compensate daldactone 25 mg qdmetoprol ol 75 mg bidmonitor fluid status Atrial fibrillation 4943 6004 I48.19 apixaban 5 mg bidmetopro lol 75 mg bidmonitor for bleeding, rate control Essential hypertension 16903528 I10 bp normalspir onolactone 25 mg qdmetoprol ol 75 mg bidamlodip ine 5 mg qdmonitor bp and adjust meds prn Hyperlipidemia 31919991 E78.49 atorvastat in 80 mg qhscheck lipids, CMP, CBC on 09/23/22 Chronic pain 19862337 G8 9.29 tramadol 25 mg q8h prngabapen tin 100 mg qhsmonitor for pain relief Gastroesop hageal reflux disease without esophagitis 752347195 K21.9 omeprazole 20 mg dailymonit or for sxs Retention of urine 37954 4002 R39.198 tolterodin e ER 4 mg qdmonitor for retention Hypokalemia 35978508 E87 .6 assume previous dx of hypokalemi a with pt also on potassium sparing diuretic aldactoneK CL 10 MEQ qdcheck CMP on 09/23/22 [id number] ANDREA ENGEL, LOREN [facility] [address] 10/23/2022 10:56:00 10/30/2022 16:02:16 Diabetes mellitus 18124229 E11.9 A1C 5.6%, much lower than prior [...] - adjust meds as needed Vascular dementia 014356 004 F01.B0 supportive careexpect declineCon tinue:Traz odone 50 mg q HSZoloft 25 mg dailymonit or mood, behaviorsP sych eval prnPt. declined participat ion with SLUMS Mixed anxi ety and depressive disorder 331676604 F41.8 stableCont inue:gabap entin 100 mg qhs trazodone 50 mg qhssertral ine 25 mg qdmonitor mood and behaviorsP sych eval prn Diastolic heart failure 402291926 I50.32 compensate dcontinue: aldactone 25 mg qdmetoprol ol 75 mg bidVSS, labs good, monitor CP status for change Atrial fibrillation 4943 6004 I48.19 On apixaban 5 mg bid for ACOn metoprolol 75 mg bid for rateCurren tly stableFoll ow VS, labs Essential hypertension 29671371 I10 VSSContinu e:spironol actone 25 mg qdmetoprol ol 75 mg bidamlodip ine 5 mg qdmonitor bp and adjust meds prn Hyperlipidemia 72069130 E78.49 atorvastat in 80 mg qhsLFTs WNL, Lipid panel acceptable Chronic pain 88655878 G8 9.29 No change:tra madol 25 mg q8h prngabapen tin 100 mg qhsmonitor for pain reliefNo usual PRNS in place (ie APAP) will add Gastroesop hageal reflux disease without esophagitis 237212101 K21.9 On omeprazole 30 mg dailyHas been stableWill attempt dose reduction - decrease to 10 mg dailymonit or for sxs Retention of urine 74027 4002 R39.198 continue tolterodin e ER 4 mg qdmonitor for retention Hypokalemia 17398052 E87 .6 Most recent K 4.1,Stop KCL 10 MEQ qdcheck BMP on 10/29 Anemia 714375160 D64.9 previously macrocytic , now microcytic Heme stool neg. back 2Rem ains on eliquisRem ains omeprazole 20 mg daily - reducing to 10 mg dailyCBC, Fe profile, etc was to be checked 03/03, does not appear this was doneWill Check CBC, Fe profile, B12 and folate tooSuspect may benefit from Fe replacemen t [id number] NIVIA FoyP [address] [address] 11/04/2022 13:45:26 11/07/2022 09:55:50 Diabetes mellitus 28422000 E11.9 A1C 5.6%, much lower than prior readingsBS bid x 2 weeks shows normal to low 100s, one reading at 167Plan -currently on Lantus 10 units q 1 pm - reduce to 5 units q 1 pmcontinue metformin 750 mg bidmonitor BS BID for a week or 2, no SSI - adjust meds as needed [id number] ANDREA ENGEL NP [facility] [address] [address] 11/06/2022 14:13:03 11/12/2022 08:50:15 Diabetes mellitus 01373732 E11.9 A1C 5.6%, much lower than prior readingsMe ds being adjusted, BS being checked more frequently right now.Erin tly on Lantus 5 units q 1 pm and metformin 750 mg bidPlan -Stop lantusRedu ce glucophage to 500 mg bidChange BS to BID once a month and prn s/s hypo/hyper glycemiaFo llow A1Cs, tight control not indicated at this time [id number] Marita Herrera MD [facility] [address] [address] 12/17/2022 09:24:12 12/19/2022 13:22:19 Vascular dementia 260538118 F01.B0 decline expectedwi ll monitor and support as neededsee meds for mixed anxiety/de pressive disorder Mixed anxi ety and depressive disorder 337376611 F41.8 gabapentin 100 mg at hstrazodon e 50 mg at hssertrali ne 25 mg dailywill monitor Diabetes mellitus 703672 09 E11.9 metformin 500 mg bidwill monitor Atrial fibrillation 4943 6004 I48.19 apixaban 5 mg bidmetopro lol 75 mg bid for rate controlwil l monitor Essential hypertension 98689069 I10 spironolac tone 25 mg dailymetop rolol 75 mg bidamlodip ine 5 mg dailywill monitor Diastolic heart failure 267075526 I50.32 spironolac tone 25 mg dailymetop rolol 75 mg bidwill monitor Chronic pain 35922057 G8 9.29 tramadol 25 mg q8h prngabapen tin 100 mg at hsAPAP 650 mg q6h prnPT/OT prn Gastroesop hageal reflux disease without esophagitis 908336256 K21.9 omeprazole 10 mg dailywill monitor History of cerebrovascular accident 021906080 Z86.73 atorvastat in 80 mg dailyapixa ban 5 mg bidwill monitor [id number] ANDREA ENGEL NP [address] [address] 02/12/2023 12:16:40 02/16/2023 12:50:02 Vascular dementia 567845604 F01.B0 Monitor mood, behaviors; expect progressiv e declinePsy ch following, appreciate input, adjust meds prnContinu e:gabapent in 100 mg HStrazodon e 50 mg HSzoloft 25 mg dailyGuard ianship in place Mixed anxi ety and depressive disorder 264225620 F41.8 Continue: gabapentin 100 mg at hstrazodon e 50 mg at hssertrali ne 25 mg dailymonit or mood, behaviors, adjust meds prn.Apprec iate Psych input. Diabetes mellitus 425702 09 E11.9 Currently on metformin 500 mg bidBS BID q month in 100sLast A1C 5.6% in September, due for recheck 02/15, ? if glucophage still needed Atrial fibrillation 4943 6004 I48.19 Continue:a pixaban 5 mg bid for ACmetoprol ol 75 mg bid for rate controlMon itor VS, CP status, labs, adjust prn Essential hypertension 44207072 I10 VSSContinu e:spironol actone 25 mg dailymetop rolol 75 mg bidamlodip ine 5 mg dailymonit or VS, labs, adjust prnCheck CBC, CMP x 1 - due 02/15 Diastolic heart failure 872001204 I50.32 Appears compensate dContinue: spironolac tone 25 mg dailymetop rolol 75 mg bidmonitor VS, weights, labs, s/s decompensa tionCMP x 1 - due 02/15 Chronic pain 22130271 G8 9.29 tramadol 25 mg q8h prn - stop due to non usegabapen tin 100 mg at hsAPAP 650 mg q6h prnPT/OT prn Gastroesop hageal reflux disease without esophagitis 221134074 K21.9 Currently on omeprazole 10 mg daily, no GI/GERD sx.Will stop med, monitor sx. If recur, consider restarting or adding pepcid.mon itor History of cerebrovascular accident 080290171 Z86.73 atorvastat in 80 mg dailyapixa ban 5 mg bidwill monitor labs, due 02/15 Retention of urine 28829 4002 R39.198 on tolterodin e ER 4 mg qd, ? if any benefitWil l stop and monitor voiding for change/ret ention [id number] Pam Ruiz MD [facility] [place] [address] 04/13/2023 19:15:44 05/05/2023 14:06:12 Vascular dementia 590458823 F01.B0 Remains at baselineCo ntinue sertraline 25 mg qd, trazadone 50 mg qhs and gabapentin 100 mg qhs.Contin ue supportive care, expect decline.Rodriguez s guardian.M onitor mood and behaviors. Psych follows Essential hypertension 47329367 I10 Last BP was charted on 02/15 and was borderline .Continue spironolac tone 25 mg qd, amlodipine 5 mg qd, and metoprolol 75 mg BID.Monito r BP and labs. Diabetes mellitus 912156 09 E11.9 BS in good control. Continue lantus 18 units qd and metformin 750 mg BID.Monito r fingerstic ks prn and HgA1C q 6 months. Atrial fibrillation 4943 6004 I48.19 Rate in good control on meds as above.Cont inue eliquis 5 mg BID for AC.Monitor HR and bleeding risk. Vertigo 073292029 R42 Continue meclizine 25 mg qd prnMonitor sxs. Hypokalemia 87858978 E87 .6 Continue KCl 10 meq qd.Monitor labs yearly and prn. Mixed anxi ety and depressive disorder 700923694 F41.8 As above Diastolic heart failure 527756247 I50.32 Appears euvolemic. Continue meds as above.Jadyn tor resp. status, fluid status, wts and labs. 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 [id number] ANDREA ENGEL NP [facility] [address] [address] 06/04/2023 14:14:20 06/08/2023 16:16:35 Vascular dementia 284862577 F01.B0 Remains at baselineCo ntinue sertraline 25 mg qd, trazadone 50 mg qhs and gabapentin 100 mg qhs.Contin ue supportive care, expect decline.Rodriguez s guardian.M onitor mood and behaviors. Psych followsSLU MS attempted 06/04/23, pt. refused participat ion. Mixed anxi ety and depressive disorder 160045891 F41.8 Currently stable, continue meds as abovePsych eval. prn Essential hypertension 71879555 I10 VSS, BP tends to run on the higher side of nl.Continu e spironolac tone 25 mg qd, amlodipine 5 mg qd, and metoprolol 75 mg BID.Contin ue to monitor BP and labs. Diabetes mellitus 240927 09 E11.9 BS in very good control.A1 C 6.6%Contin ue metformin 500 mg BID.Monito r fingerstic ks bid q month and prn and HgA1C q 6 months. Atrial fibrillation 4943 6004 I48.19 Rate in good control on meds as above.Cont inue eliquis 5 mg BID for AC.Monitor HR and bleeding risk. Vertigo 744830394 R42 Continue meclizine 25 mg qd prnMonitor sxs. Diastolic heart failure 347947129 I50.32 Appears euvolemic. Continue meds as above.Jadyn tor resp. status, fluid status, wts and labs. 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 Hyperlipidemia 01323173 E78.49 atorvastat in 80 mg qhsLFTs WNL, Lipid panel acceptable [id number] Marita Herrera MD [facility] [address] [address] 07/31/2023 07:29:15 08/04/2023 14:48:26 Vascular dementia 478229332 F01.B0 decline expectedwi ll monitor and support as neededsee meds for mixed anxiety/de pressive disorder Mixed anxi ety and depressive disorder 269208193 F41.8 gabapentin 100 mg at hstrazodon e 50 mg at hssertrali ne 25 mg dailywill monitor Atrial fibrillation 4943 6004 I48.19 apixaban 5 mg bidmetopro lol 75 mg bid for rate controlwil l monitor Diabetes mellitus 194132 09 E11.9 metformin 500 mg bidwill monitor Essential hypertension 71036647 I10 spironolac tone 25 mg dailymetop rolol 75 mg bidamlodip ine 5 mg dailywill monitor Diastolic heart failure 053885151 I50.32 spironolac tone 25 mg dailymetop rolol 75 mg bidwill monitor History of cerebrovascular accident 550394614 Z86.73 atorvastat in 80 mg dailyapixa ban 5 mg bidwill monitor [id number] ANDREA ENGEL NP [facility] [address] [address] 08/18/2023 14:18:52 08/20/2023 11:34:28 Anemia 024031234 D64.9 Issues with macrocytic and microcytic anemia [...] Hgb. <7 or symptomati c. Full code [id number] Loni Love NP [facility] [address] [address] 08/20/2023 15:52:30 08/24/2023 12:20:19 Anemia 844058868 D64.9 Issues with macrocytic and microcytic anemia [...] c. hgb actually slightly better Full code [id number] [facility] [address] [address] 09/03/2023 12:50:07 09/09/2023 09:30:46 Anemia 330526680 D64.9 Issues with macrocytic and microcytic anemia in past.she remains on eliquis for AC, tapered off omeprazole recentlypl an:09/02 will restart omeprazole 40 mg po daily, will likely need shelter therapyHem e test stools x 3,stool requested and positive on 09/02 for occult blood ferrous sulfate 325 mg po bid x 4 weeks(star dimitri on 08/19)then 325 mg po daily for iron def anemiatypi chioma takes 2-3 months to resolveCon crowning inspector restarting PPIRemains on eliquisrep eat cbc, iron, ferritin, tibc, iron%, in 8 weeks and labs on 09/06Transf use prn Hgb. <7 or symptomati c. hgb actually improving History of cerebrovascular accident 725254503 Z86.73 atorvastat in 80 mg dailyapixa ban 5 mg bidwill monitor Atrial fibrillation 4943 6004 I48.19 apixaban 5 mg bidmetopro lol 75 mg bid for rate controlwil l monitor [id number] Loni Love NP [facility] [address] [address] 09/21/2023 12:04:30 09/23/2023 08:52:12 Anemia 184328989 D64.9 Issues with macrocytic and microcytic anemia in past.she remains on eliquis for AC, tapered off omeprazole recentlypl an: contferrou s sulfate 325 mg po bid x 4 weeks total (started on 08/19)then 325 mg po daily for iron def anemiatypi chioma takes 2-3 months to resolveon 09/02 restarted omeprazole 40 mg po daily, will likely need terminal manager therapyHem e test stools x 3,stool requested and positive on 09/02 for occult blood Remains on eliquislab s on 09/06 stable with increase in h/hrepeat cbc, iron, ferritin, tibc, iron%, in 8 weeksTrans fuse prn Hgb. <7 or symptomati c. hgb actually improving History of cerebrovascular accident 856412526 Z86.73 atorvastat in 80 mg dailyapixa ban 5 mg bidwill monitor Atrial fibrillation 4943 6004 I48.19 apixaban 5 mg bidmetopro lol 75 mg bid for rate controlwil l monitor Vascular dementia 278906 004 F01.B0 decline expectedwi ll monitor and support as neededsee meds for mixed anxiety/de pressive disorder Mixed anxi ety and depressive disorder 269957303 F41.8 gabapentin 100 mg at hstrazodon e 50 mg at hssertrali ne 25 mg dailywill monitor Diabetes mellitus 609222 09 E11.9 BS stable 150smetfor min 500 mg bidwill monitor Essential hypertension 31192351 I10 bp stablespir onolactone 25 mg dailymetop rolol 75 mg bidamlodip ine 5 mg dailywill monitor Diastolic heart failure 149586236 I50.32 spironolac tone 25 mg dailymetop rolol 75 mg bidwill monitor [id number] ANDREA ENGEL NP [address] [address] 09/24/2023 13:31:22 09/29/2023 09:28:11 Anemia 466817513 D64.9 Issues with macrocytic and microcytic anemia in past. CBC in August showed drop in H/H, microcytic .Further labs indicated Fe def. anemia.Sto ol heme pos. x 1Started Fe bid, and omeprazole 40 mg qdRepeat labs improvedNo s/s active bleeding.R emains on AC for now.Repeat labs in October History of cerebrovascular accident 536169828 Z86.73 Continue:a torvastati n 80 mg dailyapixa ban 5 mg bidmonitor labs prn Atrial fibrillation 4943 6004 I48.19 Continue:a pixaban 5 mg bidmetopro lol 75 mg bid for rate controlmon itor labs, VS/HR; adjust tx. prn Vascular dementia 234839 004 F01.B0 decline expectedwi ll monitor and support as neededsee meds for mixed anxiety/de pressive disorderBI MS completed 09/24/23 = score 6/15 Mixed anxi ety and depressive disorder 287666317 F41.8 Currently stable, continue: gabapentin 100 mg at hstrazodon e 50 mg at hssertrali ne 25 mg dailywill monitor and adjust meds prnPsych eval prn Diabetes mellitus 595953 09 E11.9 BS in good controlcon tinue metformin 500 mg bidmonitor BS, A1C, adjust prn Essential hypertension 51954360 I10 bp stable, continue:s pironolact one 25 mg dailymetop rolol 75 mg bidamlodip ine 5 mg dailywill monitor vs, labs, adjsut prn Diastolic heart failure 942660328 I50.32 StableCont inue:joe nolactone 25 mg dailymetop rolol 75 mg bidmonitor VS, labs, weights, LS, sats for decompensa tion [id number] Loni Love NP [facility] [address] 10/29/2023 11:30:39 11/03/2023 10:25:00 History of cerebrovascular accident 291368776 Z86.73 Continue:a torvastati n 80 mg dailyapixa ban 5 mg bidmonitor labs prn Vascular dementia 350741 004 F01.B0 decline expected with increased confusion latelywill monitor and support as neededsee meds for mixed anxiety/de pressive disorderBI MS completed 09/24/23 = score 6/15 Acute cystitis 10944921 N30.00 pt with increased confusion urine on [...] repeat urine if needed and symptomati c [id number] Pam Ruiz MD [address] [address] 11/24/2023 21:03:57 12/09/2023 20:35:52 Vascular dementia 352300552 F01.B0 Mild at baselineMo od stable.Con tinue sertraline 25 mg qd, trazadone 50 mg qhs and gabapentin 100 mg qhs.Contin ue supportive care, expect decline.Rodriguez geoff guardian.M onitor mood and behaviors. Psych follows Mixed anxi ety and depressive disorder 218476222 F41.8 As above Essential hypertension 80266731 I10 Last BP was charted on 02/15 and was borderline .Continue spironolac tone 25 mg qd, amlodipine 5 mg qd, and metoprolol 75 mg BID.Monito r BP and labs. Diabetes mellitus 724171 09 E11.9 BS remains in good control when checked monthly.[facility] HgA1C was 6.4 in 08/2023.Con tinue metformin 500 mg BID.Monito r fingerstic ks BID one day/month and HgA1C q 6 months. Atrial fibrillation 4943 6004 I48.19 Rate remains in good control on meds as above.Cont inue eliquis 5 mg BID for AC.Monitor HR and bleeding risk. Vertigo 784991603 R42 No current c/oContinu e meclizine 25 mg qd prnMonitor sxs. Hypokalemia 34238456 E87 .6 Continue KCl 10 meq qd.Monitor labs yearly and prn. Diastolic heart failure 916069526 I50.32 Continues to appear euvolemic. Continue meds as above.Jadyn tor resp. status, fluid status, wts and labs. Chronic pain 70697432 G8 9.29 Pain in adequate control.Co ntinue gabapentin 100 mg qhs and APAP 650 mg q 6 hrs prnMonitor sxs Gastroesop hageal reflux disease without esophagitis 919949108 K21.9 Restarted on meds in 08/2023, unclear why as no note found about sxs.Presum ably due to heme + stool.Curr ently asxaticCon tinue esomeprazo le 40 mg qdMonitor sxs. [id number] Loni Love NP [facility] [address] 11/30/2023 08:00:22 12/03/2023 15:35:24 Vascular dementia 840647921 F01.B0 decline expected with increased confusion lately, [...] diff, and bmpBIMS completed 09/24/23 = score 615 Constipation 26834787 K5 9.00 mom 30 cc today for constipati onmonitor [id number] Loni Love, LOREN [facility] [address] [place] [address] 01/06/2024 10:32:13 01/11/2024 09:22:27 Vascular dementia 876355500 F01.B0 decline expectedmi ght be her disease progressio n with some confusionw ill monitor and support as neededlabs , urinalysis without obvious infectionm onitor mental statusBIMS completed 09/24/23 = score 6/15 Constipation 45821376 K5 9.00 senna dailymom prnmonitor Mixed anxi ety and depressive disorder 578001836 F41.8 As above Essential hypertension 82107236 I10 Last BP was charted on 02/15 and was borderline .Continues pironolact one 25 mg qdamlodipi ne 5 mg qdmetoprol ol 75 mg BID.Monito r BP and labs. Diabetes mellitus 619898 09 E11.9 BS remains in good control when checked monthly.[facility] HgA1C was 6.4 in 08/2023.Con tinue metformin 500 mg BID.Monito r fingerstic ks BID one day/month and HgA1C q 6 months. Atrial fibrillation 4943 6004 I48.19 Rate remains in good control on meds as above.Cont inueeliqui s 5 mg BID for AC.Monitor HR and bleeding risk. Vertigo 309122131 R42 No current c/oContinu emeclizine 25 mg qd prnMonitor sxs. Diastolic heart failure 456987606 I50.32 Continues to appear euvolemic. Continue meds as above.Jadyn tor resp. status, fluid status, wts and labs. Chronic pain 91593372 G8 9.29 Pain in adequate control.Co ntinuegaba pentin 100 mg qhsAPAP 650 mg q 6 hrs prnMonitor sxs Gastroesop hageal reflux disease without esophagitis 371327653 K21.9 Restarted on meds in 08/2023, unclear why as no note found about sxs.due to heme + stool.iron studies improving and nausea improvingC ontinueeso meprazole 40 mg qdMonitor sxs. [id number] ANDREA ENGEL NP [facility] [address] [address] 02/18/2024 10:01:55 02/19/2024 10:25:07 Mixed anxiety and depressive disorder 603788720 F41.8 Followed by Psych.Due to persistent depressed mood, recommendi ng sertraline be increased to 100 mg qd; agree, will change. Continue:g abapentin 100 mg at hs trazodone 50 mg at melatoni n 10 mg q hs Monitor and continue to adjust meds prnAppreci ate Psych input, will continue to follow [id number] ANDREA ENGEL NP [facility] [address] [address] 03/15/2024 14:20:29 03/16/2024 10:57:03 Mixed anxiety and depressive disorder 839541989 F41.8 Followed by Psych.Due to persistent depressed mood, zoloft increased to 100 mg qd about a month ago; everett. well so far. Continue:g abapentin 100 mg at hs trazodone 50 mg at hsmelatoni n 10 mg q hs Monitor mood, behaviors Vascular dementia 441735 004 F01.B0 decline expectedco ntinue emotional supportmon itor mental statusBIMS completed 09/24/23 = score 6/15 Constipation 73348453 K5 9.00 senna dailymom prnmonitor Essential hypertension 56546741 I10 Last BP was charted on 02/15 and was borderline .Continues pironolact one 25 mg qdamlodipi ne 5 mg qdmetoprol ol 75 mg BID.Monito r BP and labs. Diabetes mellitus 167515 09 E11.9 BS remains in good control when checked monthly.[facility] st HgA1C 5.1%Record ed BS low-mid 100s.Britney nue metformin 500 mg BID.Monito r fingerstic ks BID one day/month and HgA1C q 6 months. Atrial fibrillation 4943 6004 I48.19 Rate remains in good control on metoprolol Continueel iquis 5 mg BID for AC.Monitor HR and bleeding risk. Vertigo 223633854 R42 No current c/oContinu emeclizine 25 mg qd prnMonitor sxs. Diastolic heart failure 948545549 I50.32 Appears compensate d.Continue aldactoneM onitor resp. status, fluid status, wts and labs. Chronic pain 01516099 G8 9.29 Pain in adequate control.Co ntinuegaba pentin 100 mg qhsAPAP 650 mg q 6 hrs prnMonitor sxs Gastroesop hageal reflux disease without esophagitis 290861415 K21.9 Continuees omeprazole 40 mg qdMonitor sxs. Anemia 717555306 D64.9 Issues with macrocytic and microcytic anemia in past. CBC in August showed drop in H/H, microcytic .Further labs indicated Fe def. anemia.Sto ol heme pos. x 1Continue Fe qd, and esomeprazo le 40 mg qdRepeat labs improvedNo s/s active bleeding.R emains on AC for now.Monito r CBC. History of cerebrovascular accident 610941802 Z86.73 Continue:a torvastati n 80 mg dailyapixa ban 5 mg bidmonitor labs prn Hyperlipidemia 94934521 E78.49 atorvastat in 80 mg qhsfish oil dailyLFTs WNL, Lipid panel WNR. Vitamin D deficiency 347 99860 E56.8 Continue oral supplement sD level prn [id number] L[facility] Love [facility] [address] [facility] [place] [address] 04/11/2024 08:09:34 04/13/2024 08:48:14 Mixed anxiety and depressive disorder 712099260 F41.8 Followed by Psych.Due to persistent depressed mood, zoloft increased to 100 mg qd about a month ago; everett. well so far. Continue:g abapentin 100 mg at hs trazodone 50 mg at hsmelatoni n 10 mg q hs Monitor mood, behaviors Vascular dementia 666993 004 F01.B0 decline expectedco ntinue emotional supportmon itor mental statusBIMS completed 09/24/23 = score 6/15 Essential hypertension 00265072 I10 Last BP was charted on 02/15 and was borderline .Continuee ntresto 49-51 po bid(note in dc summary states bid, however in narrative mentions daily) cont this dose as she is stable and bp in good control and monitor for need to adjust)met oprolol 50 mg BID.Monito r BP and labs. Diabetes mellitus 611700 09 E11.9 BS remains in good control when checked monthly.[facility] st HgA1C 5.1%Record ed BS low-mid 100s.Britney [...] HR and bleeding risk. Diastolic heart failure 767916975 I50.32 CHF: diuresed wtih IV lasix and [...] fluid status, wts and labs. Chronic pain 68281879 G8 9.29 Pain in adequate control.Co ntinuegaba pentin 100 mg qhsAPAP 650 mg q 6 hrs prnMonitor sxs Gastroesop hageal reflux disease without esophagitis 206596571 K21.9 Continuees omeprazole 40 mg qdMonitor sxs. Anemia 679516557 D64.9 Issues with macrocytic and microcytic anemia in past felt to have severe anemia without scope in hosp given three units PRBCs in hosp..with hx of Fe def. anemia.Con tinue Fe qd, and esomeprazo le 40 mg qdRepeat labs improvedNo s/s active bleeding.R emains on AC for now.Monito r CBC weekly x 3. History of cerebrovascular accident 023171948 Z86.73 Continue:a torvastati n 80 mg dailyapixa ban 5 mg bidmonitor labs prn Pneumonia 761301738 J18. 9 resolvedPn eumonia/hy poxia tx with abx and weaned to 2l o2 overnight. Blood cultures neg on recheck of initial contaminan t. Chest xray: pulm edema with small pleural effusions with pneumonia noted on 04/04/24.c bc weekly [id number] for s/s pna sequelae or hypoxiacon crowning inspector cxr prn for fu Hypoxia 782340982 R09.02 resolvedre lated to pneumonia and gi bleed and chf in hospitalwe aned off b1upcgyse for sequqelae [id number] Loni Love NP [facility] [address] 04/18/2024 15:33:11 04/19/2024 09:45:16 Anemia 038633673 D64.9 Issues with macrocytic and microcytic anemia in past felt to have severe anemia without scope in hosp given three units PRBCs in hosp..with hx of Fe def. anemia.Con tinueFe qd,esomepr azole 40 mg qdRepeat labs improved last weekNo s/s active bleeding.R emains on AC for now.Monito r CBC weekly x 2. Diastolic heart failure 873922424 I50.32 CHF: diuresed wtih IV lasix and [...] AC.Monitor HR and bleeding risk. Vascular dementia 683882 004 F01.B0 decline expectedco ntinue emotional supportmon itor mental statusBIMS completed 09/24/23 = score 6/15 Essential hypertension 73877389 I10 Last BP stableCont inueentres to 49-51 po bid(note in dc summary states bid, however in narrative mentions daily) cont this dose as she is stable and bp in good control and monitor for need to adjust)met oprolol 50 mg BID.Monito r BP and labs. Diabetes mellitus 281463 09 E11.9 BS remains in good control when checked monthly.Ailin gonzalez HgA1C 5.1%Record ed BS low-mid 100s.Britney nue metformin 500 mg BID. jardiance 10 mg po dailyMonit or fingerstic ks BID one day/month and HgA1C q 6 months. Chronic pain 33003944 G8 9.29 Pain in adequate control.Co ntinuegaba pentin 100 mg qhsAPAP 650 mg q 6 hrs prnMonitor sxs Gastroesop hageal reflux disease without esophagitis 068994409 K21.9 Continuees omeprazole 40 mg qdMonitor sxs. Mixed anxi ety and depressive disorder 608271765 F41.8 Followed by Psych.Due to persistent depressed mood, zoloft increased to 100 mg qd about a month ago; everett. well so far.Contin ue:gabapen tin 100 mg at hs trazodone 50 mg at hsmelatoni n 10 mg q hsMonitor mood, behaviors History of cerebrovascular accident 357728915 Z86.73 Continue:a torvastati n 80 mg dailyapixa ban 5 mg bidmonitor labs prn Intertrigo 31012418 L30. 4 house antifungal cream to groin area bid and prn until resovledmo nitor Bilateral heel pain [id number] 4278163 M79.672 left heel pain with bilateral boggy heelsskin prep to bilateral heels bid until healedelev ate heels on pillow and offload pressure [id number] Loni Love NP [facility] [address] [facility] [place] [address] 04/21/2024 10:25:22 04/22/2024 11:27:53 Anemia 144699092 D64.9 Issues with macrocytic and microcytic anemia in past felt to have severe anemia without scope in hosp given three units PRBCs in hosp..with hx of Fe def. anemia.Con tinueFe qd,esomepr azole 40 mg qdRepeat labs improved last weekNo s/s active bleeding.R emains on AC for now.Monito r CBC weekly Intertrigo 22183797 L30. 4 house antifungal cream to groin area bid and prn until resolvedmo nitor Bilateral heel pain 1563 151988 9140653 M79.672 left heel pain/ redness with bilateral boggy heelsskin prep to bilateral heels bid until healedelev ate heels on pillow and offload [id number] /4 bunny boots to bilateral heels for pressure /5 protein liquid 30 cc po dailymonit or for changes or open areas Diastolic heart failure 255435308 I50.32 CHF: diuresed wtih IV lasix and [...] AC.Monitor HR and bleeding risk. Vascular dementia 989922 004 F01.B0 decline expectedco ntinue emotional supportmon itor mental statusBIMS completed 5/9/24 = score 6/15 Essential hypertension 50956446 I10 Last BP stableCont inueentres to 49-51 po bid(note in dc summary states bid, however in narrative mentions daily) cont this dose as she is stable and bp in good control and monitor for need to adjust)met oprolol 50 mg BID.Monito r BP and labs. Diabetes mellitus 512699 09 E11.9 BS remains in good control lately, monitor closely with decreased po intakeLast HgA1C 5.1%Record ed BS low-mid 100s.Britney nue metformin 500 mg BID. jardiance 10 mg po dailyMonit or fingerstic ks BID one day/month and HgA1C q 6 months. Chronic pain 39457255 G8 9.29 Pain in adequate control.Co ntinuegaba pentin 100 mg qhsAPAP 650 mg q 6 hrs prnMonitor sxs Gastroesop hageal reflux disease without esophagitis 710459060 K21.9 see vomiting and decreased po ehxopq00/5 start pepcid 20 mg po at 566491/5 schedule zofran 4 mg po at 800, 1200, and 5 pm wtih meals x 14 days , cont prn dose for nausea/vom iting12/5 hog trader to eval for food hajlayc36/ 5 order mashed potatoes and oatmeal daily as requested1 2/5 add remeron 7.5 mg po qhs x 1 week and increase to 15 mg po qhs afterConti nueesomepr azole 40 mg qdMonitor sxs. Mixed anxi ety and depressive disorder 249811388 F41.8 Followed by Psych.Due to persistent depressed mood, zoloft increased to 100 mg qd about a month ago; everett. well so far.Contin ue:gabapen tin 100 mg at hs trazodone 50 mg at hsmelatoni n 10 mg q hsMonitor mood, behaviors History of cerebrovascular accident 722047457 Z86.73 Continue:a torvastati n 80 mg dailyapixa ban 5 mg bidmonitor labs prn Adult fail ure to thrive syndrome 317876650 R62.7 with vomiting and decreased po ivjqmm20/5 start pepcid 20 mg po at 666493/5 schedule zofran 4 mg po at 800, 1200, and 5 pm wtih meals x 14 days , cont prn dose for nausea/vom iting04/21 hog trader to eval for food koubymw39/ 5 order mashed potatoes and oatmeal daily as requested1 06/22 add remeron 7.5 mg po qhs x 1 week and increase to 15 mg po qhs after04/21 dc trazodone with start of rtortnx21/ 5 psych consult for depression Continuees omeprazole 40 mg qdMonitor sxs.04/21 cbc and cmp in am04/21 spoke with guardian and she is a full code at this time, he is updated and will notify son Luis Fernandocongeoff ider sending to ER if further decline At [facility] risk for imbalanced nutrition, less than body requirements 420397274 Z91.89 with vomiting and decreased po /5 start pepcid 20 mg po at 057940/5 schedule zofran 4 mg po at 800, 1200, and 5 pm wtih meals x 14 days , cont prn dose for nausea/vom iting04/21 hog trader to eval for food igwxndz36/ 5 order mashed potatoes and oatmeal daily as requested1 06/22 add remeron 7.5 mg po qhs x 1 week and increase to 15 mg po qhs after04/21 dc trazodone with start of xyhsnpl22/ 5 psych consult for depression Continuees omeprazole 40 mg qdMonitor sxs.04/21 cbc and cmp in am04/21 spoke with guardian and she is a full code at this time, he is updated and will notify gayathri Gould04/21 weight terrencecons ider Er if continues to decline Constipation 34824598 K5 9.00 no BM in 3 days and very small, however not eating much04/21 start bisacodyl supp and mom todayconts judith dailymom prnmonitor Nausea and vomiting 1693 1999 R11.2 n/v see above [id number] Loni Love NP [address] [address] 04/22/2024 12:15:11 04/25/2024 13:28:48 Hyperkalemia 51110794 E87.5 acute hyperkalem ia with critical lab [...] SEND TO ER For Evaluation and labs [id number] [facility] [address] [place] [address] 04/27/2024 12:19:09 04/29/2024 14:18:13 Hyperkalemia 25448871 E87.5 acute hyperkalem ia with critical lab of 6.7 found to be 7.0 in er on 04/22 felt resolved with IVF and lokelma dc of potassium. Ekg without sig ischemic changes.juarez pplement and adjusted entresto to low dose, note recently low potassium with changes in hosp and will need to monitor closelybmp and cbc on 04/27 and will repeat on 04/29 then weeklymoni tor Diastolic heart failure 552187439 I50.32 CHF: diuresed wtih IV lasix and [...] AC.Monitor HR and bleeding risk. Vascular dementia 559366 004 F01.B0 decline expectedco ntinue emotional supportmon itor mental statusBIMS completed 09/24/23 = score /15 Essential hypertension 83713174 I10 Last BP stableCont inuecontla six 20 mg po qdfurosemi de changed to 20 mg po qdentresto low dose po bid 24-26metop rolol 50 mg bidamiodar one 200 mg po bid, change to qd on 05/06eliqu is 5 mg BID for AC.Monitor BP and labs. Diabetes mellitus 368475 09 E11.9 contLast HgA1C 5.1%Record ed BS low-mid 100s.Britney nue metformin 500 mg BID. jardiance 10 mg po dailyMonit or fingerstic ks BID one day/month and HgA1C q 6 months. Chronic pain 29144014 G8 9.29 Pain in adequate control.Co ntinuegaba pentin 100 mg qhsAPAP 650 mg q 6 hrs prnMonitor sxs Gastroesop hageal reflux disease without esophagitis 049550901 K21.9 see vomiting and decreased po intakecont pepcid 20 mg po at 1200zofran prndietici an to eval for food choicesrem bello 15 mg po qhs afteresome prazole 40 mg qdMonitor sxs. Mixed anxi ety and depressive disorder 817071608 F41.8 Followed by Psych.zolo ft 100 mg qdContinue :gabapenti n 100 mg at hs melatonin 10 mg q hs Monitor mood, behaviors History of cerebrovascular accident 268332022 Z86.73 Continue:a torvastati n 80 mg dailyapixa ban 5 mg bidmonitor labs prn Acute nont raumatic kidney injury [id number] 37609 N17.9 reinaldo felt resolved with IVF and med changesmon itor Chronic ki dney disease 020857598 N18.9 CKD with REINALDO from dehydratio nPt with increased BUN and CR on admit to ER resolving to baselinemo nitor bmp weekly and on 04/29avoid nephrotoxi c meds if ablemonito r Vomiting 172387205 R11.1 0 vomiting prior to ER admitno vomiting mentioned in Erabd/pelv is CT done and results not in paperwork- marked on summary as pottzrv34/ 11 will ask nursing to obtian ct resultssee reflux for meds and planmonito r Anemia 548976052 D64.9 Issues with macrocytic and microcytic anemia in past felt to have severe anemia without scope in hosp given three units PRBCs in hosp..on march 2024 admissionw ith hx of Fe def. anemia.Con tinueFe qd,esomepr azole 40 mg qdRepeat labs improved last weekNo s/s active bleeding.R emains on AC for now.Monito r CBC weekly Leukocytosis 363012446 D 72.829 resolved in hosp without source of infection noted [id number] Loni Love, [employer] [facility] [address] [place] [address] 05/05/2024 10:20:30 05/09/2024 12:29:42 Hyperkalemia 34397938 E87.5 resolvedac [place] hyperkalem ia with critical lab of 6.7 found to be 7.0 in er on 04/22 felt resolved with IVF and kelley roper of potassium. Ekg without sig ischemic changes.juarez pplement and adjusted entresto to low dose, note recently low potassium with changes in hosp and will need to monitor closelybmp stable and will be done weekly Chronic ki dney disease 504401773 N18.9 CKD with REINALDO from dehydratio nPt with increased BUN and CR on admit to ER resolving to baselinemo nitor bmp weeklyavoi d nephrotoxi c meds if ablemonito r Vomiting 963433506 R11.1 0 resolved recentlyab d/pelvis CT done and results not in paperwork- marked on summary as mxhtlta01/ 11 will ask nursing to obtian ct xresdcb64/ 19 will reask nursing to obtain ct resultssee reflux for meds and planmonito r Diastolic heart failure 111661648 I50.32 CHF: diuresed wtih IV lasix and [...] AC.Monitor HR and bleeding risk. Vascular dementia 960569 004 F01.B0 decline expectedco ntinue emotional supportmon itor mental statusBIMS completed 09/24/23 = score 6/15 Essential hypertension 77146971 I10 Last BP stableCont inuecontla six 20 mg po qdfurosemi de changed to 20 mg po qdentresto low dose po bid 24-metop rolol 50 mg bidamiodar one 200 mg po bid, change to qd on 05/06eliqu is 5 mg BID for AC.Monitor BP and labs. Diabetes mellitus 380546 09 E11.9 stableLast HgA1C 5.1%Record ed BS low-mid 100s.Britney nue metformin 500 mg BID. jardiance 10 mg po dailyMonit or fingerstic ks BID one day/month and HgA1C q 6 months. Chronic pain 81399854 G8 9.29 Pain in adequate control.Co ntinuegaba pentin 100 mg qhsAPAP 650 mg q 6 hrs prnMonitor sxs Gastroesop hageal reflux disease without esophagitis 910140372 K21.9 vomiting decreasedc ontpepcid 20 mg po at 1200zofran prndietici an to eval for food choicesrem bello 15 mg po qhs afteresome prazole 40 mg qdMonitor sxs. Mixed anxi ety and depressive disorder 900197947 F41.8 Followed by Psych.zolo ft 100 mg qdContinue :gabapenti n 100 mg at hs melatonin 10 mg q hs Monitor mood, behaviors History of cerebrovascular accident 545153895 Z86.73 Continue:a torvastati n 80 mg dailyapixa ban 5 mg bidmonitor labs prn Anemia 784091569 D64.9 Issues with macrocytic and microcytic anemia in past felt to have severe anemia without scope in hosp given three units PRBCs in hosp..on march 2024 admissionw ith hx of Fe def. anemia.Con tinueFe qd,esomepr azole 40 mg qdRepeat labs improved last weekNo s/s active bleeding.R emains on AC for now.Monito r CBC weekly Leukocytosis 345452373 D 72.829 resolved in hosp without source of infection noted Adult fail ure to thrive syndrome 611101222 R62.7 pt with failure to thrive in [...] sending to ER if further decline At [facility] risk for imbalanced nutrition, less than body requirements 174534601 Z91.89 see above failure to thrive Nausea and vomiting 1693 1999 R11.2 resolved with above regimenn/v see above Constipation 05881156 K5 9.00 contsenna dailymom prnmonitor Bilateral heel pain 1563 574870 0497586 M79.672 left heel pain/ redness with bilateral boggy heelsskin prep to bilateral heels bid until healedelev ate heels on pillow and offload pressurere fused bunny boots to bilateral heels for pressure relief and foam dressingsp rotein liquid 30 cc po dailymonit or for changes or open areas Hyperlipidemia 42486153 E78.49 atorvastat in 80 mg qhsfish oil dailyLFTs WNL, Lipid panel WNR. Vitamin D deficiency 347 05594 E56.8 Continue oral supplement sD level prn [id number] Loni Love, LOREN [address] [address] 05/23/2024 15:44:10 05/24/2024 09:35:14 Chronic kidney disease 081380015 N18.9 CKD with REINALDO from dehydratio nPt with increased BUN and CR on admit to ER resolving to baseline, now with decreased po intake and increased bun/cr againshe does appear euvolemic on exam1/6 due to increased bun/crenco urage po fluidsdecr ease metformin to 500mg po dailydecre ase lasix to from 20 mg po to 10 mg qddc gabapentin monitor bmp weekly for changesavo id nephrotoxi c meds if ableencour age po fluidsmoni torconside r further reducing nephrotoxi c meds as needed, recheck labs weekly Diastolic heart failure 165799363 I50.32 CHF: diuresed wtih IV lasix and [...] AC.Monitor HR and bleeding risk. Vascular dementia 683599 004 F01.B0 decline expectedco ntinue emotional supportmon itor mental statusBIMS completed 09/24/23 = score 10/30 Essential hypertension 32278110 I10 Last BP stableCont inuecon11/09 decrease lasix from 20 mg po qd to 10 mg po qdentresto low dose po bid 24-metop rolol 50 mg bidamiodar one 200 mg po bid, change to qd on 05/06eliqu is 5 mg BID for AC.Monitor BP and labs. Diabetes mellitus 805630 09 E11.9 stableLast HgA1C 5.1%Record ed BS low-mid 100s.Britney nue 05/23 decrease to 500 mg po daily for increased bun/cr and decresased eating jardiance 10 mg po dailyMonit or fingerstic ks BID one day/month and HgA1C q 6 months.rep eat bun/cr this week Chronic pain 11938909 G8 9.29 Pain in adequate control.Co ntinue dc gabapentin 100 mg qhsAPAP 650 mg q 6 hrs prnMonitor sxs and need for pain relief Gastroesop hageal reflux disease without esophagitis 945365011 K21.9 vomiting decreasedc ontpepcid 20 mg po at 1200zofran prndietici an to eval for food choicesrem bello 15 mg po qhs afteresome prazole 40 mg qdMonitor sxs. Mixed anxi ety and depressive disorder 037811430 F41.8 Followed by Psych.zolo ft 100 mg qdContinue :dc gabapentin 100 mg at hs melatonin 10 mg q hs Monitor mood, behaviors History of cerebrovascular accident 968920889 Z86.73 Continue:a torvastati n 80 mg dailyapixa ban 5 mg bidmonitor labs prn Anemia 440102953 D64.9 Issues with macrocytic and microcytic anemia in past felt to have severe anemia without scope in hosp given three units PRBCs in hosp..on march 2024 admissionw ith hx of Fe def. anemia.Con tinueFe qd,esomepr azole 40 mg qdRepeat labs improved last weekNo s/s active bleeding.R emains on AC for now.Monito r CBC weekly Adult fail ure to thrive syndrome 044072263 R62.7 pt with failure to thrive in [...] sending to ER if further decline At [facility] risk for imbalanced nutrition, less than body requirements 916789839 Z91.89 see above failure to thrivecont to have decreased wgt regardless of remeron [id number] Loni Love, [employer] [facility] [address] [facility] [place] [address] 06/01/2024 12:27:47 06/03/2024 15:04:56 Chronic kidney disease 339192786 N18.9 CKD with REINALDO from dehydratio n now improvingC KD improving with med titrations she does appear euvolemic on examencour age po fluidsmetf ormin, lasix, reduced and gabapentin dc'dmonito r bmp weekly for changesavo id nephrotoxi c meds if ableencour age po fluidsmoni torconside r further reducing nephrotoxi c meds as needed, recheck labs weekly with bnp Diastolic heart failure 678356716 I50.32 bp stable and euvolemic todayCHF: diuresed [...] AC.Monitor HR and bleeding risk. Vascular dementia 506207 004 F01.B0 decline expectedco ntinue emotional supportmon itor mental statusBIMS completed 09/24/23 = score 6/15 Essential hypertension 95921841 I10 Last BP stable 130/4Conti nuecontlas ix 10 mg po qdentresto low dose po bid 24-26metop rolol 50 mg bidamiodar one 200 mg po bid, changed to qd on 05/06eliqu is 5 mg BID for AC.Monitor BP and labs. Diabetes mellitus 735576 09 E11.9 stable 118-[address] HgA1C 5.1%Record ed BS low-mid 100s.Britney nue metformin 500 mg po daily jardiance 10 mg po dailyMonit or fingerstic ks BID one day/month and HgA1C q 6 months.rep eat bun/cr this week Chronic pain 86331709 G8 9.29 Pain in adequate control.Co ntinueAPAP 650 mg q 6 hrs prnMonitor sxs and need for pain relief Mixed anxi ety and depressive disorder 410237865 F41.8 Followed by Psych.alex ft dc'd per psych reccontmel atonin 10 mg q hs Monitor mood, behaviors Anemia 346955810 D64.9 labs stable as abvoepast Issues with [...] weekly Adult fail ure to thrive syndrome 955291850 R62.7 pt with failure to thrive in [...] sending to ER if further decline At [facility] risk for imbalanced nutrition, less than body requirements 098221370 Z91.89 see above failure to thrivethis week weight 99 lbs same as last weekdietic justus followingc ont to have decreased wgt regardless of remeron [id number] Loni Love NP [facility] [place] [address] 06/27/2024 10:56:03 06/28/2024 14:04:19 Mixed anxiety and depressive disorder 024460485 F41.8 Followed by Psych.alex marshall dc'd per psych rec and doing well in good spiritscon tmelatonin 10 mg q hs Monitor mood, behaviors Chronic ki dney disease 984153262 N18.9 CKD with REINALDO from dehydratio n now improvingC KD improving with med titrations she does appear euvolemic on examencour age po fluidsmetf ormin, lasix, reduced and gabapentin dc'dmonito r bmp weekly for changesavo id nephrotoxi c meds if ableencour age po fluidsmoni torconside r further reducing nephrotoxi c meds as needed, recheck labs weekly with bnp Diastolic heart failure 327389013 I50.32 bp stable and euvolemic todayCHF: diuresed [...] bmp cbc weekly until stable Vascular dementia 354972 004 F01.B0 decline expectedco ntinue emotional supportmon itor mental statusBIMS completed 09/24/23 = score /15 Essential hypertension 85880472 I10 bp stable 132/60cont lasix 10 mg po qdentresto low dose po bid 24-26metop rolol 50 mg bidamiodar one 200 mg po qdeliquis 5 mg BID for AC.Monitor BP and labs. Diabetes mellitus 322171 09 E11.9 stableLast HgA1C 5.1%Contin ue metformin 500 mg po daily jardiance 10 mg po dailyMonit or fingerstic ks BID one day/month and HgA1C q 6 months. Chronic pain 69559409 G8 9.29 Pain in adequate control.Co ntinueAPAP 650 mg q 6 hrs prnMonitor sxs and need for pain relief Anemia 273097092 D64.9 labs stablepast Issues with macrocytic and microcytic anemia in past felt to have severe anemia without scope in hosp given three units PRBCs in hosp..on march 2024 admissionw ith hx of Fe def. anemia.Con tinueFe qd,esomepr azole 40 mg qdNo s/s active bleeding.R emains on AC for now.Monito r CBC weekly for now Adult fail ure to thrive syndrome 559857377 R62.7 pt with failure to thrive in [...] for AC.Monitor HR and bleeding risk. At [facility] risk for imbalanced nutrition, less than body requirements 981097280 Z91.89 see above failure to thriveweig ht stablizing but low 101 lbsdietici an followingr emeron 15 mg po qhs [id number] Damien Kay MD [facility] [address] [address] 07/30/2024 13:33:15 08/01/2024 14:15:42 Adult failure to thrive syndrome 603868681 R62.7 now with continued weight lossnow on supplement sdietary to followwill start remeron 7.5 mg qhs if decline continues Vascular dementia 432085 004 F01.B0 baseline dementiagu ardianship in placeconti nue supportive caremonito r for behaviors Diastolic heart failure 834460338 I50.32 entresto 24-26 mg bidlasix 10 mg qammonitor respirator y status Atrial fibrillation 4943 6004 I48.19 eliquis 5 mg bidmetopro lol 50 mg bidamiodar one 200 mg qdmonitor for rate control [id number] Loni Love NP [facility] [address] [address] 08/05/2024 11:28:29 08/08/2024 15:43:28 Adult failure to thrive syndrome 579453236 R62.7 continued weight [place] supplement sdietary to followreme catina 15mg qhs if decline continues Vascular dementia 652369 004 F01.B0 baseline [facility]iagu [facility] supportive caremonito r for behaviors Diastolic heart failure 890039720 I50.32 contentres to 24-26 mg bidlasix 10 mg qam, of note decreased recentlymo nitor respirator y statusmoni tor bnp as ordered with slight increase in bnp 457-howeve r appears euvolemic today Anxiety 05300599 F41.1 with increased anxiety and agitation yesterdayart trazodone 12.5 mg po q 6 hours prn anixety x 14 daysstart urinalysis to rule out infection with new behaviorsp sych to eval [id number] Loni Love NP [facility] [address] [address] 08/08/2024 10:16:10 08/10/2024 15:21:43 Anxiety 30035003 F41.1 with increased anxiety and agitation last week, now resolvingconttra zodone 12.5 mg po q 6 hours prn anixety x 14 daysurinal ysis to rule out infection with new behaviors ordered but refused to give sample or straight cathwill hold off on abx for now as behaviors are resolved per nursingpsy ch to eval Adult fail ure to thrive syndrome 864058414 R62.7 continued weight [place] supplement sdietary to followreme catina 15mg qhs Vascular dementia 975467 004 F01.B0 baseline dementiagu ardianship in [facility] supportive caremonito r for behaviors [id number] Loni Love NP [facility] [address] [address] 08/25/2024 12:58:43 08/29/2024 13:08:29 Adult failure to thrive syndrome 409432412 R62.7 continued weight loss in general but up 1 lb in the last monthon supplement sdietary to followreme catina 15mg qhs Vascular dementia 999093 004 F01.B0 baseline dementiagu ardianship in placecon nue supportive caremonito r for behaviors Diastolic heart failure 960890532 I50.32 overall appears euvolemic and NADcontent malvin 24-26 mg bid4/10 increase lasix from 10 mg qam to 20 mg, as bnp is doubled to 1090 on 08/24monitor respirator y statusmoni tor bnp as ordered Anemia 790144746 D64.9 labs stable however h/h trending downpast [...] bid for 28 days total, then daily.cont 4/10 increase lasix to 20 mg po qd for high bnpentrest o low dose po bid 24-26metop rolol 50 mg bidamiodar one 200 mg po qdeliquis 2.5 mg BID for AC.Monitor HR and bleeding risk. [id number] Loni Love NP [facility] [address] [address] 08/31/2024 12:01:23 09/05/2024 09:48:57 Anemia 957276962 D64.9 past Issues with macrocytic and microcytic anemia in past felt to have severe anemia without scope in hosp given three units PRBCs in hosp..on march 2024 admissionw ith hx of Fe def. anemia.Con tinueFe qd,omepraz ole 40 mg recently increased to bidon eliquishem e test stools x3No s/s active bleeding known send to ER 911 for critical hgb of 6.4 [id number] Loni Love NP [address] [address] 09/01/2024 09:47:13 09/05/2024 11:10:55 Anemia 846010833 D64.9 past Issues with macrocytic and microcytic anemia in past felt to have severe anemia without scope in hosp given three units PRBCs in hosp..on march 2024 admission sent to er on 08/31 and h/h repeated and felt she did not need transfusio nShe remains on low dose eliquis 2.5 mg po bid for afib with hx of Fe def. anemia.Con tinueFe qd,omepraz ole 40 mg, recently increased to bidon eliquishem e test stools x3No s/s active bleeding knownreche ck cbc and bmp on wednesdays starting on 09/07 x 3 Gastroesop hageal reflux disease without esophagitis 694066346 K21.9 contzofran prndietici an to eval for food choicesrem bello 15 mg po qhs afterMonit or sxs. Atrial fibrillation 4943 6004 I48.19 controlled AF with RVF: started on amiodarone 200 mg bid for 28 days total, then daily.cont lasix to 20 mg po qd for high bnp, increased on 08/25entres to low dose po bid 24-26metop rolol 50 mg bidamiodar one 200 mg po qdeliquis 2.5 mg BID for AC.Monitor HR and bleeding risk. [id number] Loni Love NP [address] [address] 09/15/2024 12:35:37 09/19/2024 09:21:20 Anemia 372654360 D64.9 past Issues with macrocytic and microcytic anemia in past felt to have severe anemia without scope in hosp given three units PRBCs in hosp..on march 2024 admission sent to er on 08/31 and h/h repeated and felt she did not need transfusio n and since has had boderline anemia She remains on low dose eliquis 2.5 mg po bid for afibhx of Fe def. anemia.Con tinueFe qd,omepraz ole 40 mg, recently increased to bid, monitor for need to decreaseon eliquishem e test stools x3No s/s active bleeding knowncbc and bmp on wednesdays starting on 09/07 x 3 Atrial fibrillation 4943 6004 I48.19 controlled cont09/15 increase lasix from 20 mg to 30 mg po qd for high bnp and crackles to left baseentres to low dose po bid 24-26metop rolol 50 mg bidamiodar one 200 mg po qdeliquis 2.5 mg BID for AC.Monitor HR and bleeding risk. Diastolic heart failure 750107616 I50.32 overall appears euvolemic and NADcontent malvin 24-26 mg bid09/15 increase lasix from 20 mg to 30 mg po qd for high bnp 1166 and crackles to left basemonito r respirator y statusmoni tor bnp as ordered Adult fail ure to thrive syndrome 395903329 R62.7 continued weight loss in general but up 1 lb in the last monthon supplement sdietary to follow for weight lossremero n 15mg qhs Vascular dementia 025847 004 F01.B0 baseline dementiagu ardianship in placeconti nue supportive caremonito r for behaviors [id number] Loni Love NP [address] [address] 09/21/2024 14:57:25 09/22/2024 10:58:16 Diastolic heart failure [id number] I50.32 overall appears euvolemic and NADcontent malvin 24-26 mg bidlasix 30 mg po qd, recently increased for high bnp 1166 and crackles to left basemonito r respirator y statusmoni tor bnp as ordered Anemia [id number] D64.9 past Issues with macrocytic and microcytic anemia in past felt to have severe anemia without scope in hosp given three units PRBCs in hosp..on march 2024 admissions ent to er on 08/31 and h/h repeated and felt she did not need transfusio n and since has had boderline anemia 09/22 due to low h/h and sligthly pale, but mostly aysmptomat ic will recheck h/h in am and consider sending out for transfusio n cont low dose eliquis 2.5 mg po bid for afibhx of Fe def. anemia.Fe qd,omepraz ole 40 mg, recently increased to bidmonitor for need to decreaseon eliquishem e test stools x3No s/s active bleeding knowncbc and bmp on wednesdays Atrial fibrillation [id number] I48.19 controlled contlasix 30 mg po qd for high bnp and crackles to left base on ntrest o low dose po bid 24-26metop rolol 50 mg bidamiodar one 200 mg po qdeliquis 2.5 mg BID for AC.Monitor HR and bleeding risk. Adult fail ure to thrive syndrome [id number] R62.7 continued weight loss in general but up 1 lb in the last monthon supplement sdietary to follow for weight lossremero n 15mg qhs Vascular dementia [id number] F01.B0 baseline dementiagu ardianship in placeconti nue supportive caremonito r for behaviors Gastroesop hageal reflux disease without esophagitis [id number] K21.9 contzofran prndietici an to eval for food choicesrem bello 15 mg po qhs afterMonit or sxs. Anxiety [id number] F41.1 with increased anxiety and agitation last week, now resolvedco nttrazodon e 12.5 mg po q 6 hours prn anxiety x 14 daysurinal ysis to rule out infection with new behaviors ordered but refused to give sample or straight cath, eventually dc'd as she refusedpsy ch to eval [id number] Loni Love NP [facility] [address] [address] 09/22/2024 10:58:27 09/22/2024 11:09:16 Anemia [id number] D64.9 09/22 due to low h/h critical of 6.1 with increased pallor on eliquis will send out for transfusio n Health Concerns Section Related Observation LastModified by [...] ID [place] Member ID Guarantor Name 08/31/2024 1 [place] Traci K Wegrzyn [id number] Traci Wegrzyn 08/31/2024 2 [place] Traci K Wegrzyn [id number] Traci Wegrzyn 09/01/2024 1 [place] [employer] Traci K Wegrzyn [id number] Traci Wegrzyn 09/01/2024 2 [place] Traci K Wegrzyn [id number] Traci Wegrzyn 09/15/2024 1 [place] [employer] Traci K Wegrzyn [id number] Traci Wegrzyn 09/15/2024 2 [place] Traci K Wegrzyn [id number] Traci Wegrzyn 09/21/2024 1 [place] [employer] Traci K Wegrzyn [id number] Traci Wegrzyn 09/21/2024 2 [place] Traci K Wegrzyn [id number] Traci Wegrzyn 09/22/2024 1 [place] [employer] Traci K Wegrzyn [id number] Traci Wegrzyn 09/22/2024 2 [place] Traci K Wegrzyn [id number] Traci Wegrzyn Notes Date Note Type Note Provider [...] on eliquis for her afib.Nursing notified this [employer] her hgb is 6.4 and hct 20.6. [...] appt in place Loni Love NP [address] [facility], [address], [place], [address], [facility] [employer] 08/31/2024 12:17:01 09/01/2024 text/html Traci is a 73 y o f, LTC resident seen for an acute visit in fu for anemia. PMH includes HTN, AODM, Afib on Eliquis, CHF pEF, dementia, hx of CVA with left hemiparesis, anemia, depression/anxiety , chronic back pain, hyperaldosteronism , HLD, insomnia, falls, urinary retention and GERD. Dianna is followed with routine labs for her anemia on eliquis for her afib on 08/31. hgb is 6.4 and hct 20.6 and she was pale on exam, but generally felt okay. On arrival to ER labs repeated with h 7.3, and hgb 22.4, in which no transfusion was done and she was sent back. On exam, she is lying in bed and smiling. She is in good spirits. She has new fresh taylor which she is happy about. She denies any shortness of breath, dizziness, chest pain or other concerns today. MOLST: full code, guardian court appt in place Loni Love NP [address] [facility], [address], [place], [address], [facility] [employer] 09/01/2024 10:14:09 09/15/2024 text/html Traci is a 73 y o f, LTC resident seen for an acute visit in for anemia. PMH includes HTN, AODM, Afib on Eliquis, CHF pEF, dementia, hx of CVA with left hemiparesis, anemia, depression/anxiety , chronic back pain, hyperaldosteronism , HLD, insomnia, falls, urinary retention and GERD. Labs resulted from 09/14/24. Dianna is followed with routine labs for her anemia on eliquis for her afib with recent notable trending down in h/h. hgb 7.4/hct 24.5, and bnp was 1166. On exam, she is lying in bed and smiling. Denies any shortness of breath, dizziness, chest pain, bleeding, reflux, or other concerns today. She states she is eating and drinking everything and feels good. THere is a slight LLL crackle noted on exam this am. MOLST: full code, guardian court appt in place Loni Love NP [address] [facility], [address], [place], [address], [employer] [facility] 09/15/2024 12:49:53 09/21/2024 text/html Pt is a 73 yo f, LTC resident seen for a routine rounding visit in for anemia. PMH includes HTN, AODM, Afib on Eliquis, CHF pEF, dementia, hx of CVA with left hemiparesis, anemia, depression/anxiety , chronic back pain, hyperaldosteronism , HLD, insomnia, falls, urinary retention and GERD. Labs reviewed from 09/21 and show notable h/h trending down of 6.7/22.9. Prior h/h 7.4/ 24.5 She has a history of gi bleed. She is asymptomatic and slightly pale. Vitals stable. Due to low borderline h/h and no current obvious bleeding will recheck in am. We have been trending h/h. Her cardiology appt was canceled and rescheduled for October with note that h/h needs to be stable for stress test. She remains asymptomatic. Vitals stable. She remains on eliquis for her afib. On 09/15 her lasix was adjusted for LLL crackles and elevated bnp. On exam, she is lying in bed and has no complaints. She denies any shortness of breath, dizziness, chest pain, bleeding, reflux, or other concerns today. She states she is eating and drinking everything and is just fine now . Overall, remains on steady decline in general and allow eating snacks and cookies and supplements on remeron, remains with slow weight loss. She is 98 lbs. MOLST: full code, guardian court appt in place Loni Love NP [address] [facility], [address], [place], [address], [facility] 09/22/2024 10:58:14 09/22/2024 text/html Pt is a 73 yo f, LTC resident seen for an acute r visit in for anemia. PMH includes HTN, AODM, Afib on Eliquis, CHF pEF, dementia, hx of CVA with left hemiparesis, anemia, depression/anxiety , chronic back pain, hyperaldosteronism , HLD, insomnia, falls, urinary retention and GERD. Labs notable for h/h trending down to 6.1 and 20.8 critical on eliquis. Due to blood thinners, history of gi bleed, and increased pallor today will send for transfusion to ER. Labs prior09/21 6.7/22.9.4/30 h/h 7.4/ 24.5She has a history of gi bleed. She is asymptomatic and notably pale today. Vitals stable. She denies any bleeding, vomiting, shortness of breath, or chest pain. She continues with increased pale appearance today. No abd tenderness or distention. She remains confused at baseline. OF note; stress test rescheduled due to low h/h for October. On exam, Traci is lying in bed and has no complaints but very pale today, increased from yesterday. She continues to deny any shortness of breath, dizziness, chest pain, bleeding, reflux, or other concerns today. She is eating a cookie.MOLST: full code, guardian court appt in place Loni Love NP [address] [facility], [address], [place], [address], [facility] 09/22/2024 11:09:15 OBGyn Episode No OBEpisode recorded.
--- OUTSIDE RECORDS SUMMARY | 2024-09-22 13:11 | XMS_ITS | Encounter Summary ---
Author Organization [facility] Address [address] [place] [address] Care Team Providers Care Financial Services Counselor Name Role Phone Damien Kay MD Primary Care Provider [phone] Encounter Details Date Type Department Care Team (Late st Contact Info) Description 08/23/2024 Lab Requisition [facility] - Main Lab [address] [facility] [employer] [place] [address] Damien Kay MD [address] [facility] [address] [place], [address] Heart failure, unspecified (CMS/HCC V24, CMS/HCC [...] natriuretic peptide (08/24/2024 6:47 AM EDT) Pathologist [facility] BNP 1,090(H) <=100 pcg/mL LAB CHEMISTRY METHOD 08/24/2024 2:06 PM EDT [facility] Blood Venous blood specimen / Unknown Venipuncture / Unknown 08/24/2024 6:47 AM EDT 08/24/2024 12:06 PM EDT us Damien Kay MD LAB BLOOD ORDERABLES Final Resul t [facility] [address] [place] [address], [place] [phone] * Basic metabolic panel (08/24/2024 6:47 AM EDT) [facility] Sodium 143 133 - 145 mmol/L LAB CHEMISTRY METHOD 08/24/2024 12:32 PM [facility] Potassium 4.3 3.5 - 5.5 mmol/L LAB CHEMISTRY METHOD 08/24/2024 12:32 PM [facility] Chloride 109 96 - 110 mmol/L LAB CHEMISTRY METHOD 08/24/2024 12:32 PM [facility] CO2 24 21 - 32 mmol/L LAB CHEMISTRY METHOD 08/24/2024 12:32 PM [facility] Anion Gap 10 3 - 11 LAB CHEMISTRY METHOD 08/24/2024 12:32 PM [facility] Glucose 76 70 - 100 mg/dL LAB CHEMISTRY METHOD 08/24/2024 12:32 PM [facility] BUN 14 5 - 25 mg/dL LAB CHEMISTRY METHOD 08/24/2024 12:32 PM [facility] Creatinine 0.92 0.50 - 1.10 mg/dL LAB CHEMISTRY METHOD 08/24/2024 12:32 PM EDT [facility] eGFR 66 >=60 mL/min/1. 73m2 LAB CHEMISTRY METHOD 08/24/2024 12:32 PM EDT [facility] Comment:Calculation based on the??Chronic Kidney Disease Epidemiology Collaboration (CKD-EPI) equation refit??without adjustment for race. BUN/Creatinine Ratio 15.2 LAB CHEMISTRY METHOD 08/24/2024 12:32 PM EDT [facility] Calcium 9.1 8.5 - 10.5 mg/dL LAB CHEMISTRY METHOD 08/24/2024 12:32 PM EDT [facility] Blood Venous blood specimen / Unknown Venipuncture / Unknown 08/24/2024 6:47 AM EDT 08/24/2024 11:13 AM EDT us Damien Kay MD LAB BLOOD ORDERABLES Final Resul t [facility] [address] [place] [address], [place] [phone] * (ABNORMAL) Complete blood count (08/24/2024 6:47 AM EDT) WBC 6.7 4.8 - 10.8 K/mcL LAB HEMETOLOGY METHOD 08/24/2024 11:43 AM EDT [facility] RBC 2.50(L) 3.80 - 4.80 M/mcL LAB HEMETOLOGY METHOD 08/24/2024 11:43 AM EDT [facility] Hemoglobin 7.4(L) 11.5 - 16.0 g/dL LAB HEMETOLOGY METHOD 08/24/2024 11:43 AM T [facility] Hematocrit 23.4(L) 35.0 - 47.0 % LAB HEMETOLOGY METHOD 08/24/2024 11:43 AM EDT [facility] MCV 92.9 79.0 - 98.0 FL LAB HEMETOLOGY METHOD 08/24/2024 11:43 AM EDT [facility] MCH 29.4 27.0 - 32.0 pcg LAB HEMETOLOGY METHOD 08/24/2024 11:43 AM EDT [facility] MCHC 31.6(L) 32.0 - 37.0 g/dL LAB HEMETOLOGY METHOD 08/24/2024 11:43 AM EDT [facility] RDW 14.6 11.0 - 15.0 % LAB HEMETOLOGY METHOD 08/24/2024 11:43 AM EDT [facility] Platelets 604(H) 130 - 400 K/mcL LAB HEMETOLOGY METHOD 08/24/2024 11:43 AM EDT [facility] MPV 10.1 7.0 - 11.0 FL LAB HEMETOLOGY METHOD 08/24/2024 11:43 AM EDT [facility] NRBC 0.0 <1.0 % LAB HEMETOLOGY METHOD 08/24/2024 11:43 AM EDT [facility] NRBC Absolute 0.00 <0.10 K/mcL LAB HEMETOLOGY METHOD 08/24/2024 11:43 AM [facility] Blood Venous blood specimen / Unknown Venipuncture / Unknown 08/24/2024 6:47 AM EDT 08/24/2024 11:08 AM EDT us Damien Kay MD LAB BLOOD ORDERABLES Final Resul t [facility] [address] [place] [address], documented in this encounter Visit Diagnoses Diagnosis Heart failure, unspecified (CMS/HCC V24, CMS/[facility] V28) Heart failure, unspecified Sepsis, unspecified organism (CMS/HCC V24, CMS/HCC V28) Hyperlipidemia, unspecified documented in this encounter Care Teams Financial Services Counselor Relationship Specialty Start Date End Date Damien Kay MD [address] [facility] [address] [place], [id number] PCP - General Family Medicine 07/05/24 documented as of this encounter
--- OUTSIDE RECORDS SUMMARY | 2024-09-22 13:11 | XMS_ITS | Encounter Summary ---
Author Organization [facility] Address [address] [place] [address] Care Team Providers Care Pe Manager Name Role Phone Damien Kay MD Primary Care Provider [phone] Encounter Details Date Type Department Care Team (Late st Contact Info) Description 04/15/[address] [facility] - Main Lab [address] [facility] [place] [address] Damien Kay MD [address] [facility] [address] [place], [address] Type 2 diabetes mellitus without complications [...] K/mcL LAB HEMETOLOGY METHOD 04/18/2024 8:34 AM [facility] RBC 4.30 3.80 - 4.80 M/mcL LAB HEMETOLOGY METHOD 04/18/2024 8:34 AM [facility] Hemoglobin 11.0(L) 11.5 - 16.0 g/dL LAB HEMETOLOGY METHOD 04/18/2024 8:34 AM [facility] Hematocrit 37.9 35.0 - 47.0 % LAB HEMETOLOGY METHOD 04/18/2024 8:34 AM [facility] MCV 88.1 79.0 - 98.0 FL LAB HEMETOLOGY METHOD 04/18/2024 8:34 AM [facility] MCH 25.6(L) 27.0 - 32.0 pcg LAB HEMETOLOGY METHOD 04/18/2024 8:34 AM [facility] MCHC 29.0(L) 32.0 - 37.0 g/dL LAB HEMETOLOGY METHOD 04/18/2024 8:34 AM [facility] RDW 17.4(H) 11.0 - 15.0 % LAB HEMETOLOGY METHOD 04/18/2024 8:34 AM [facility] Platelets 570(H) 130 - 400 K/mcL LAB HEMETOLOGY METHOD 04/18/2024 8:34 AM [facility] MPV 11.3(H) 7.0 - 11.0 FL LAB HEMETOLOGY METHOD 04/18/2024 8:34 AM [facility] NRBC 0.0 <1.0 % LAB HEMETOLOGY METHOD 04/18/2024 8:34 AM [facility] NRBC Absolute 0.00 <0.10 K/mcL LAB HEMETOLOGY METHOD 04/18/2024 8:34 AM [facility] Neutrophils Relative 77.9 % LAB HEMETOLOGY METHOD 04/18/2024 8:34 AM [facility] Lymphocytes Relative 12.1 % LAB HEMETOLOGY METHOD 04/18/2024 8:34 AM [facility] Monocytes Relative 8.1 % LAB HEMETOLOGY METHOD 04/18/2024 8:34 AM [facility] Eosinophils Relative 1.0 % LAB HEMETOLOGY METHOD 04/18/2024 8:34 AM [facility] Basophils Relative 0.5 % LAB HEMETOLOGY METHOD 04/18/2024 8:34 AM [facility] Immature Granulocytes Relative 0.4 % LAB HEMETOLOGY METHOD 04/18/2024 8:34 AM [facility] Neutrophils Absolute 9.41(H) 1.50 - 7.00 K/mcL LAB HEMETOLOGY METHOD 04/18/2024 8:34 AM [facility] Lymphocytes Absolute 1.46 1.00 - 5.00 K/mcL LAB HEMETOLOGY METHOD 04/18/2024 8:34 AM [facility] Monocytes Absolute 0.98 0.20 - 1.00 K/mcL LAB HEMETOLOGY METHOD 04/18/2024 8:34 AM [facility] Eosinophils Absolute 0.12 0.00 - 0.50 K/mcL LAB HEMETOLOGY METHOD 04/18/2024 8:34 AM [facility] Basophils Absolute 0.06 0.00 - 0.20 K/mcL LAB HEMETOLOGY METHOD 04/18/2024 8:34 AM [facility] Immature Granulocytes Absolute 0.05(H) 0.00 - 0.03 K/mcL LAB HEMETOLOGY METHOD 04/18/2024 8:34 AM [facility] Blood Venous blood specimen / Unknown Venipuncture / Unknown 04/18/2024 5:30 AM EST 04/18/2024 8:08 AM EST us Damien Kay MD LAB BLOOD ORDERABLES Final Resul t [facility] [address] [place] [address], [place] [phone] * (ABNORMAL) Comprehensive metabolic panel (04/18/2024 5:30 AM EST) Sodium 141 133 - 145 mmol/L LAB CHEMISTRY METHOD 04/18/2024 9:07 AM [facility] Potassium 4.4 3.5 - 5.5 mmol/L LAB CHEMISTRY METHOD 04/18/2024 9:07 AM [facility] Chloride 108 96 - 110 mmol/L LAB CHEMISTRY METHOD 04/18/2024 9:07 AM [facility] CO2 25 21 - 32 mmol/L LAB CHEMISTRY METHOD 04/18/2024 9:07 AM [facility] Anion Gap 8 3 - 11 LAB CHEMISTRY METHOD 04/18/2024 9:07 AM [facility] Glucose 126(H) 70 - 100 mg/dL LAB CHEMISTRY METHOD 04/18/2024 9:07 AM [facility] BUN 21 5 - 25 mg/dL LAB CHEMISTRY METHOD 04/18/2024 9:07 AM [facility] Creatinine 1.51(H) 0.50 - 1.10 mg/dL LAB CHEMISTRY METHOD 04/18/2024 9:07 AM [facility] eGFR 37(L) >=60 mL/min/1. 73m2 LAB CHEMISTRY METHOD 04/18/2024 9:07 AM [facility] Comment:Calculation based on the??Chronic Kidney Disease Epidemiology Collaboration (CKD-EPI) equation refit??without adjustment for race. BUN/Creatinine Ratio 13.9 LAB CHEMISTRY METHOD 04/18/2024 9:07 AM [facility] Calcium 9.8 8.5 - 10.5 mg/dL LAB CHEMISTRY METHOD 04/18/2024 9:07 AM [facility] AST (SGOT) 27 10 - 42 unit/L LAB CHEMISTRY METHOD 04/18/2024 9:07 AM [facility] ALT (SGPT) 24 10 - 60 unit/L LAB CHEMISTRY METHOD 04/18/2024 9:07 AM [facility] Alkaline Phosphatase 76 42 - 121 unit/L LAB CHEMISTRY METHOD 04/18/2024 9:07 AM [facility] Total Protein 7.0 6.0 - 8.0 g/dL LAB CHEMISTRY METHOD 04/18/2024 9:07 AM [facility] Albumin 3.1(L) 3.2 - 5.0 g/dL LAB CHEMISTRY METHOD 04/18/2024 9:07 AM [facility] Total Bilirubin 0.3 0.0 - 1.4 mg/dL LAB CHEMISTRY METHOD 04/18/2024 9:07 AM [facility] Blood Venous blood specimen / Unknown Venipuncture / Unknown 04/18/2024 5:30 AM EST 04/18/2024 8:08 AM EST us Damien Kay MD LAB BLOOD ORDERABLES Final Resul t [facility] [address] [place] [address], documented in this encounter Visit Diagnoses Diagnosis Type 2 diabetes mellitus without complications (CMS/HCC V24, CMS/HCC V28) documented in this encounter Care Teams Pe Manager Relationship Specialty Start Date End Date Damien Kay MD [address] [place] [address], [phone] PCP - General Family Medicine 07/05/24 documented as of this encounter
--- OUTSIDE RECORDS SUMMARY | 2024-09-22 13:11 | XMS_ITS | Clinical Summary ---
Author Organization [address] Address [address] [place] [address] Phone Care Team Providers Care Vice President Of Software Development Name Role Phone Damien Kay MD Primary Care Provider [phone] Encounters Date Type Department Care Team Description 09/22/2024 Lab Requisition [facility] [address] [place] [phone] Damien Kay MD Type 2 diabetes mellitus without complications ([facility] V24, CMS/[facility] V28) 09/20/2024 Lab Requisition [facility] [address] [place] [phone] Damien Kay MD Heart failure, unspecified ([facility] V24, CMS/[facility] V28); Sepsis, unspecified organism ([facility] V24, CMS/[facility] V28); Hyperlipidemia, unspecified 09/13/2024 Lab Requisition [facility] [address] [place] [phone] Damien Kay MD Heart failure, unspecified ([facility] V24, CMS/[facility] V28); Sepsis, unspecified organism ([facility] V24, CMS/HCC V28); Hyperlipidemia, unspecified 09/08/2024 Lab Requisition [facility] [address] [place] [phone] Damien Kay MD Type 2 diabetes mellitus without complications ([facility] V24, CMS/[facility] V28); Anemia, unspecified; Hyperkalemia 09/06/2024 Lab Requisition [facility] [address] [place] [phone] Damien Kay MD Heart failure, unspecified ([facility]/HCC V24, [facility] V28); Sepsis, unspecified organism ([facility]/HCC V24, [facility] V28); Hyperlipidemia, unspecified 08/30/2024 Lab Requisition [facility] [address] [place] [phone] Damien Kay MD Heart failure, unspecified ([facility]/HCC V24, [facility] V28); Sepsis, unspecified organism ([facility] V24, [facility] V28); Hyperlipidemia, unspecified 08/23/2024 Lab Requisition [facility] [address] [place] [phone] Damien Kay MD Heart failure, unspecified ([facility] [place] [place] V24, [facility] V28); Sepsis, unspecified organism ([facility] [place] [place] V24, [facility] V28); Hyperlipidemia, unspecified 08/16/2024 Lab Requisition [facility] [address] [place] [phone] Damien Kay MD Type 2 diabetes mellitus without complications ([facility] V24, [facility] V28); Unspecified atrial fibrillation ([facility] [place] [place] V24, [facility] V28); Anemia, unspecified 08/15/2024 Lab Requisition [facility] [address] [place] [phone] Damien Kay MD Type 2 diabetes mellitus without complications ([facility]/HCC V24, [facility]/HCC V28); Unspecified atrial fibrillation ([facility] V24, [facility]/HCC V28); Anemia, unspecified 08/09/2024 Lab Requisition [facility] [address] [place] [address] Damien Kay MD Heart failure, unspecified ([facility]/HCC V24, [facility] V28); Sepsis, unspecified organism ([facility]/HCC V24, [facility]/HCC V28); Hyperlipidemia, unspecified 08/02/2024 Lab Requisition [facility] [address] [place] [phone] Damien Kay MD Heart failure, unspecified ([facility] V24, [facility] V28); Sepsis, unspecified organism ([facility] V24, [facility] V28); Hyperlipidemia, unspecified 07/26/2024 Lab Requisition [facility] [address] [place] [phone] Damien Kay MD Heart failure, unspecified ([facility] [place] [place] V24, [facility] V28); Sepsis, unspecified organism ([facility] [place] [place] V24, [facility] V28); Hyperlipidemia, unspecified 07/19/2024 Lab Requisition [facility] [address] [place] [phone] Damien Kay MD Heart failure, unspecified ([facility]/HCC V24, [facility] V28); Sepsis, unspecified organism ([facility] V24, [facility] V28); Hyperlipidemia, unspecified; Type 2 diabetes mellitus without complications ([facility] V24, [facility] V28); Other cerebrovascular disease 07/12/2024 Lab Requisition [facility] [address] [place] [phone] Damien Kay MD Heart failure, unspecified ([facility] V24, [facility] V28); Sepsis, unspecified organism ([facility] V24, [facility] V28); Hyperlipidemia, unspecified; Type 2 diabetes mellitus without complications ([facility] V24, [facility]/HCC V28); Other cerebrovascular disease 07/05/2024 Lab Requisition [facility] [address] [place] [phone] Damien Kay MD Heart failure, unspecified ([facility] V24, [facility] V28); Sepsis, unspecified organism ([facility] V24, [facility] V28); Hyperlipidemia, unspecified; Type 2 diabetes mellitus without complications ([facility] V24, [facility] V28); Other cerebrovascular disease 06/28/2024 Lab Requisition [facility] [address] [facility] [place] [phone] Damien Kay MD Heart failure, unspecified ([facility] V24, [facility] V28); Sepsis, unspecified organism ([facility] V24, [facility] V28); Hyperlipidemia, unspecified; Type 2 diabetes mellitus without complications ([facility] [place] [place] V24, [facility] V28); Other cerebrovascular disease from Last 3 Months Social History Tobacco [...] 08/17/2024 Diabetes: Annual GFR (Glomerular Filtration Rate) 09/21/2025 09/21/2024, 09/14/2024, 09/07/2024, Additional history exists RSV Immunization Adult Patients [...] mellitus without complications (CMS/HCC V24, CMS/HCC V28) BASIC METABOLIC PANEL Routine 09/21/2024 7:00 AM EDT Heart failure, unspecified (CMS/HCC V24, CMS/HCC V28) Sepsis, unspecified organism (CMS/HCC V24, CMS/HCC V28) Hyperlipidemia, unspecified B-TYPE NATRIURETIC PEPTIDE Routine 09/21/2024 7:00 AM EDT Heart failure, unspecified (CMS/HCC V24, CMS/HCC V28) Sepsis, unspecified organism (CMS/HCC V24, CMS/HCC V28) Hyperlipidemia, unspecified COMPLETE BLOOD COUNT Routine 09/21/2024 7:00 AM [...] V28) Hyperlipidemia, unspecified COMPLETE BLOOD COUNT Routine 09/14/2024 8:30 AM EDT Heart failure, unspecified (CMS/HCC V24, CMS/HCC V28) Sepsis, unspecified organism (CMS/HCC V24, CMS/HCC V28) Hyperlipidemia, unspecified COMPLETE BLOOD COUNT Routine 09/08/2024 5:31 AM EDT Type 2 diabetes mellitus without complications (CMS/HCC V24, CMS/HCC V28) Anemia, unspecified Hyperkalemia B-TYPE NATRIURETIC PEPTIDE Routine 09/07/2024 6:05 AM EDT Heart failure, unspecified (CMS/HCC V24, CMS/HCC V28) Sepsis, unspecified organism (CMS/HCC V24, CMS/HCC V28) Hyperlipidemia, unspecified BASIC METABOLIC PANEL Routine 09/07/2024 6:05 AM EDT Heart failure, unspecified (CMS/HCC V24, CMS/HCC V28) Sepsis, unspecified organism (CMS/HCC V24, CMS/HCC V28) Hyperlipidemia, unspecified COMPLETE BLOOD COUNT Routine 09/07/2024 6:05 AM [...] mellitus without complications (CMS/HCC) Other cerebrovascular disease from Last 3 Months Results * (ABNORMAL) Complete blood count (09/22/2024 4:53 AM EDT) Only the most recent of12 resultswithin the time period is included. WBC 7.5 4.8 - 10.8 K/mcL LAB HEMETOLOGY METHOD 09/22/2024 8:25 AM [facility] RBC 2.30(L) 3.80 - 4.80 M/mcL LAB HEMETOLOGY METHOD 09/22/2024 8:25 AM [facility] Hemoglobin 6.1(LL) 11.5 - 16.0 g/dL LAB HEMETOLOGY METHOD 09/22/2024 8:25 AM [facility] Hematocrit 20.8(L) 35.0 - 47.0 % LAB HEMETOLOGY METHOD 09/22/2024 8:25 AM [facility] MCV 92.0 79.0 - 98.0 FL LAB HEMETOLOGY METHOD 09/22/2024 8:25 AM [facility] MCH 27.0 27.0 - 32.0 pcg LAB HEMETOLOGY METHOD 09/22/2024 8:25 AM [facility] MCHC 29.3(L) 32.0 - 37.0 g/dL LAB HEMETOLOGY METHOD 09/22/2024 8:25 AM [facility] RDW 16.7(H) 11.0 - 15.0 % LAB HEMETOLOGY METHOD 09/22/2024 8:25 AM [facility] Platelets 469(H) 130 - 400 K/mcL LAB HEMETOLOGY METHOD 09/22/2024 8:25 AM [facility] MPV 11.0 7.0 - 11.0 FL LAB HEMETOLOGY METHOD 09/22/2024 8:25 AM EDT [facility] NRBC 0.0 <1.0 % LAB HEMETOLOGY METHOD 09/22/2024 8:25 AM EDT [facility] NRBC Absolute 0.00 <0.10 K/mcL LAB HEMETOLOGY METHOD 09/22/2024 8:25 AM EDT [facility] Blood Venous blood specimen / Unknown Venipuncture / Unknown 09/22/2024 4:53 AM EDT 09/22/2024 7:31 AM EDT us Damien Kay MD LAB BLOOD ORDERABLES Final Resul t Performing Organization Address [facility] de Phone Number [facility] [address] [place] [address], [place] [phone] * (ABNORMAL) B-type natriuretic peptide (09/21/2024 7:00 AM EDT) Only the most recent of12 resultswithin the time period is included. BNP 740(H) <=100 pcg/mL LAB CHEMISTRY METHOD 09/21/2024 11:36 AM EDT [facility] Blood Venous blood specimen / Unknown Venipuncture / Unknown 09/21/2024 7:00 AM EDT 09/21/2024 10:28 AM EDT us Damien Kay MD LAB BLOOD ORDERABLES Final Resul t Performing Organization Address [facility] de Phone Number [facility] [address] [place] [address], [place] [phone] * Basic metabolic panel (09/21/2024 7:00 AM EDT) Only the most recent of11 resultswithin the time period is included. Sodium 142 133 - 145 mmol/L LAB CHEMISTRY METHOD 09/21/2024 11:17 AM EDT [facility] Potassium 4.4 3.5 - 5.5 mmol/L LAB CHEMISTRY METHOD 09/21/2024 11:17 AM [facility] Chloride 109 96 - 110 mmol/L LAB CHEMISTRY METHOD 09/21/2024 11:17 AM [facility] CO2 26 21 - 32 mmol/L LAB CHEMISTRY METHOD 09/21/2024 11:17 AM [facility] Anion Gap 7 3 - 11 LAB CHEMISTRY METHOD 09/21/2024 11:17 AM [facility] Glucose 77 70 - 100 mg/dL LAB CHEMISTRY METHOD 09/21/2024 11:17 AM [facility] BUN 14 5 - 25 mg/dL LAB CHEMISTRY METHOD 09/21/2024 11:17 AM [facility] Creatinine 0.94 0.50 - 1.10 mg/dL LAB CHEMISTRY METHOD 09/21/2024 11:17 AM [facility] eGFR 64 >=60 mL/min/1. 73m2 LAB CHEMISTRY METHOD 09/21/2024 11:17 AM [facility] Comment:Calculation based on the Chronic Kidney Disease Epidemiology Collaboration (CKD-EPI) equation refit without adjustment for race. BUN/Creatinine Ratio 14.9 LAB CHEMISTRY METHOD 09/21/2024 11:17 AM [facility] Calcium 8.8 8.5 - 10.5 mg/dL LAB CHEMISTRY METHOD 09/21/2024 11:17 AM [facility] Blood Venous blood specimen / Unknown Venipuncture / Unknown 09/21/2024 7:00 AM EDT 09/21/2024 11:17 AM EDT us Damien Kay MD LAB BLOOD ORDERABLES Final Resul t [facility] [address] [place] [address], [place] [phone] * Lipid panel with reflex to direct LDL (08/17/2024 8:38 AM EDT) Cholesterol 118 0 - 200 mg/dL LAB CHEMISTRY METHOD 08/17/2024 12:44 PM EDT [facility] Triglycerides 90 0 - 150 mg/dL LAB CHEMISTRY METHOD 08/17/2024 12:44 PM EDT [facility] HDL 54 >=40 mg/dL LAB CHEMISTRY METHOD 08/17/2024 12:44 PM EDT [facility] LDL Calculated 46 0 - 100 mg/dL LAB CHEMISTRY METHOD 08/17/2024 12:44 PM EDT [facility] VLDL Cholesterol Moi 18 mg/dL LAB CHEMISTRY METHOD 08/17/2024 12:44 PM EDT [facility] Non HDL Chol. (LDL+VLDL) 64 <145 mg/dL LAB CHEMISTRY METHOD 08/17/2024 12:44 PM EDT [facility] Chol/HDL Ratio 2.2 0.0 - 4.4 LAB CHEMISTRY METHOD 08/17/2024 12:44 PM EDT [facility] Blood Venous blood specimen / Unknown Venipuncture / Unknown 08/17/2024 8:38 AM EDT 08/17/2024 12:11 PM EDT us Damien Kay MD LAB BLOOD ORDERABLES Final Resul t [facility] [address] [place] [address], [place] [phone] * Hemoglobin A1c (08/17/2024 8:38 AM EDT) Hemoglobin A1C 4.8 % 08/18/2024 11:23 AM EDT [facility] Mean Bld Glu Estim. 91 mg/dL 08/18/2024 11:23 AM EDT [facility] Blood Venous blood specimen / Unknown Venipuncture / Unknown 08/17/2024 8:38 AM EDT 08/17/2024 12:11 PM EDT us Damien Kay MD LAB BLOOD ORDERABLES Final Resul t [facility] [address] [place] [address], [place] [phone] * (ABNORMAL) Comprehensive metabolic panel (08/17/2024 8:38 AM EDT) Pathologist [facility] Sodium 139 133 - 145 mmol/L LAB CHEMISTRY METHOD 08/17/2024 12:44 PM [facility] Potassium 4.2 3.5 - 5.5 mmol/L LAB CHEMISTRY METHOD 08/17/2024 12:44 PM [facility] Chloride 107 96 - 110 mmol/L LAB CHEMISTRY METHOD 08/17/2024 12:44 PM [facility] CO2 25 21 - 32 mmol/L LAB CHEMISTRY METHOD 08/17/2024 12:44 PM [facility] Anion Gap 7 3 - 11 LAB CHEMISTRY METHOD 08/17/2024 12:44 PM [facility] Glucose 145(H) 70 - 100 mg/dL LAB CHEMISTRY METHOD 08/17/2024 12:44 PM [facility] BUN 15 5 - 25 mg/dL LAB CHEMISTRY METHOD 08/17/2024 12:44 PM [facility] Creatinine 0.97 0.50 - 1.10 mg/dL LAB CHEMISTRY METHOD 08/17/2024 12:44 PM [facility] eGFR 62 >=60 mL/min/1. 73m2 LAB CHEMISTRY METHOD 08/17/2024 12:44 PM [facility] Comment:Calculation based on the??Chronic Kidney Disease Epidemiology Collaboration (CKD-EPI) equation refit??without adjustment for race. BUN/Creatinine Ratio 15.5 LAB CHEMISTRY METHOD 08/17/2024 12:44 PM EDT [facility] Calcium 8.5 8.5 - 10.5 mg/dL LAB CHEMISTRY METHOD 08/17/2024 12:44 PM EDT [facility] AST (SGOT) 33 10 - 42 unit/L LAB CHEMISTRY METHOD 08/17/2024 12:44 PM [facility] ALT (SGPT) 30 10 - 60 unit/L LAB CHEMISTRY METHOD 08/17/2024 12:44 PM EDT [facility] Alkaline Phosphatase 63 42 - 121 unit/L LAB CHEMISTRY METHOD 08/17/2024 12:44 PM EDT [facility] Total Protein 5.4(L) 6.0 - 8.0 g/dL LAB CHEMISTRY METHOD 08/17/2024 12:44 PM EDT [facility] Albumin 2.2(L) 3.2 - 5.0 g/dL LAB CHEMISTRY METHOD 08/17/2024 12:44 PM T [facility] Total Bilirubin 0.3 0.0 - 1.4 mg/dL LAB CHEMISTRY METHOD 08/17/2024 12:44 PM T [facility] Blood Venous blood specimen / Unknown Venipuncture / Unknown 08/17/2024 8:38 AM EDT 08/17/2024 12:11 PM EDT us Damien Kay MD LAB BLOOD ORDERABLES Final Resul t [facility] [address] [place] [address], * (ABNORMAL) CBC auto differential (07/20/2024 2:13 PM EST) Only the most recent of4 resultswithin the time period is included. WBC 7.9 4.8 - 10.8 K/mcL LAB HEMETOLOGY METHOD 07/20/2024 3:15 PM [facility] RBC 3.40(L) 3.80 - 4.80 M/mcL LAB HEMETOLOGY METHOD 07/20/2024 3:15 PM [facility] Hemoglobin 10.3(L) 11.5 - 16.0 g/dL LAB HEMETOLOGY METHOD 07/20/2024 3:15 PM [facility] Hematocrit 32.2(L) 35.0 - 47.0 % LAB HEMETOLOGY METHOD 07/20/2024 3:15 PM [facility] MCV 94.7 79.0 - 98.0 FL LAB HEMETOLOGY METHOD 07/20/2024 3:15 PM [facility] MCH 30.3 27.0 - 32.0 pcg LAB HEMETOLOGY METHOD 07/20/2024 3:15 PM [facility] MCHC 32.0 32.0 - 37.0 g/dL LAB HEMETOLOGY METHOD 07/20/2024 3:15 PM [facility] RDW 19.0(H) 11.0 - 15.0 % LAB HEMETOLOGY METHOD 07/20/2024 3:15 PM [facility] Platelets 622(H) 130 - 400 K/mcL LAB HEMETOLOGY METHOD 07/20/2024 3:15 PM [facility] MPV 10.8 7.0 - 11.0 FL LAB HEMETOLOGY METHOD 07/20/2024 3:15 PM [facility] NRBC 0.0 <1.0 % LAB HEMETOLOGY METHOD 07/20/2024 3:15 PM [facility] NRBC Absolute 0.00 <0.10 K/mcL LAB HEMETOLOGY METHOD 07/20/2024 3:15 PM [facility] Neutrophils Relative 63.1 % LAB HEMETOLOGY METHOD 07/20/2024 3:15 PM [facility] Lymphocytes Relative 26.1 % LAB HEMETOLOGY METHOD 07/20/2024 3:15 PM [facility] Monocytes Relative 8.3 % LAB HEMETOLOGY METHOD 07/20/2024 3:15 PM [facility] Eosinophils Relative 1.0 % LAB HEMETOLOGY METHOD 07/20/2024 3:15 PM [facility] Basophils Relative 1.4 % LAB HEMETOLOGY METHOD 07/20/2024 3:15 PM [facility] Immature Granulocytes Relative 0.1 % LAB HEMETOLOGY METHOD 07/20/2024 3:15 PM [facility] Neutrophils Absolute 4.96 1.50 - 7.00 K/mcL LAB HEMETOLOGY METHOD 07/20/2024 3:15 PM [facility] Lymphocytes Absolute 2.05 1.00 - 5.00 K/mcL LAB HEMETOLOGY METHOD 07/20/2024 3:15 PM [facility] Monocytes Absolute 0.65 0.20 - 1.00 K/mcL LAB HEMETOLOGY METHOD 07/20/2024 3:15 PM [facility] Eosinophils Absolute 0.08 0.00 - 0.50 K/mcL LAB HEMETOLOGY METHOD 07/20/2024 3:15 PM [facility] Basophils Absolute 0.11 0.00 - 0.20 K/mcL LAB HEMETOLOGY METHOD 07/20/2024 3:15 PM [facility] Immature Granulocytes Absolute 0.01 0.00 - 0.03 K/mcL LAB HEMETOLOGY METHOD 07/20/2024 3:15 PM [facility] Blood Venous blood specimen / Unknown Venipuncture / Unknown 07/20/2024 2:13 PM EST 07/20/2024 2:59 PM EST us Damien Kay MD LAB BLOOD ORDERABLES Final Resul t [facility] [address] [place] [address], from Last 3 Months Insurance MEDIC[place] Care Teams Vice President Of Software Development Relationship Specialty Start Date End Date Damien Kay MD [address] [place] [address], [phone] PCP - General Family Medicine 07/05/24
--- OUTSIDE RECORDS SUMMARY | 2024-09-22 13:11 | XMS_ITS | Encounter Summary ---
Author Organization [facility] Address [address] [place] [phone] Care Team Providers Care Fisher Net Name Role Phone Damien Kay MD Primary Care Provider [phone] Encounter Details Date Type Department Care Team (Latest Contact Info) Description 07/12/2024 Lab Requisition [facility] - Main Lab 299 [facility] [place] [address] Damien Kay MD 38 [facility] [address] [place], [phone] Heart failure, unspecified (CMS/HCC V24, CMS/HCC [...] CBC auto differential (07/13/2024 5:39 AM EST) [facility] WBC 9.0 4.8 - 10.8 K/mcL LAB HEMETOLOGY METHOD 07/13/2024 10:29 AM [facility] RBC 2.90(L) 3.80 - 4.80 M/mcL LAB HEMETOLOGY METHOD 07/13/2024 10:29 AM [facility] Hemoglobin 8.6(L) 11.5 - 16.0 g/dL LAB HEMETOLOGY METHOD 07/13/2024 10:29 AM [facility] Hematocrit 27.7(L) 35.0 - 47.0 % LAB HEMETOLOGY METHOD 07/13/2024 10:29 AM [facility] MCV 96.2 79.0 - 98.0 FL LAB HEMETOLOGY METHOD 07/13/2024 10:29 AM [facility] MCH 29.9 27.0 - 32.0 pcg LAB HEMETOLOGY METHOD 07/13/2024 10:29 AM [facility] MCHC 31.0(L) 32.0 - 37.0 g/dL LAB HEMETOLOGY METHOD 07/13/2024 10:29 AM [facility] RDW 21.9(H) 11.0 - 15.0 % LAB HEMETOLOGY METHOD 07/13/2024 10:29 AM [facility] Platelets 558(H) 130 - 400 K/mcL LAB HEMETOLOGY METHOD 07/13/2024 10:29 AM [facility] MPV 10.5 7.0 - 11.0 FL LAB HEMETOLOGY METHOD 07/13/2024 10:29 AM [facility] NRBC 0.0 <1.0 % LAB HEMETOLOGY METHOD 07/13/2024 10:29 AM [facility] NRBC Absolute 0.00 <0.10 K/mcL LAB HEMETOLOGY METHOD 07/13/2024 10:29 AM [facility] Neutrophils Relative 61.4 % LAB HEMETOLOGY METHOD 07/13/2024 10:29 AM [facility] Lymphocytes Relative 26.0 % LAB HEMETOLOGY METHOD 07/13/2024 10:29 AM [facility] Monocytes Relative 10.0 % LAB HEMETOLOGY METHOD 07/13/2024 10:29 AM [facility] Eosinophils Relative 1.4 % LAB HEMETOLOGY METHOD 07/13/2024 10:29 AM [facility] Basophils Relative 0.9 % LAB HEMETOLOGY METHOD 07/13/2024 10:29 AM [facility] Immature Granulocytes Relative 0.3 % LAB HEMETOLOGY METHOD 07/13/2024 10:29 AM [facility] Neutrophils Absolute 5.52 1.50 - 7.00 K/mcL LAB HEMETOLOGY METHOD 07/13/2024 10:29 AM [facility] Lymphocytes Absolute 2.34 1.00 - 5.00 K/mcL LAB HEMETOLOGY METHOD 07/13/2024 10:29 AM [facility] Monocytes Absolute 0.90 0.20 - 1.00 K/mcL LAB HEMETOLOGY METHOD 07/13/2024 10:29 AM EST [facility] Eosinophils Absolute 0.13 0.00 - 0.50 [facility] HEMETOLOGY METHOD 07/13/2024 10:29 AM EST [facility] Basophils Absolute 0.08 0.00 - 0.20 K[facility] LAB HEMETOLOGY METHOD 07/13/2024 10:29 AM EST [facility] Immature Granulocytes Absolute 0.03 0.00 - 0.03 K[facility] LAB HEMETOLOGY METHOD 07/13/2024 10:29 AM EST [facility] Blood Venous blood specimen / Unknown Venipuncture / Unknown 07/13/2024 5:39 AM EST 07/13/2024 9:58 AM EST Damien Kay MD LAB BLOOD ORDERABLES Final Resul t Performing Organization Address City/[facility]/ZIP Co de Phone Number [facility] [address] [place] [address], [place] [phone] * (ABNORMAL) B-type natriuretic peptide (07/13/2024 5:39 AM EST) Pathologist [facility] BNP 308(H) <=100 pcg/mL LAB CHEMISTRY METHOD 07/13/2024 11:14 AM EST [facility] Blood Venous blood specimen / Unknown Venipuncture / Unknown 07/13/2024 5:39 AM EST 07/13/2024 9:58 AM EST Damien Kay MD LAB BLOOD ORDERABLES Final Resul t [facility] [address] [place] [address], [place] [phone] * (ABNORMAL) Basic metabolic panel (07/13/2024 5:39 AM EST) Pathologist [facility] Sodium 140 133 - 145 mmol/L LAB CHEMISTRY METHOD 07/13/2024 10:41 AM [facility] Potassium 3.5 3.5 - 5.5 mmol/L LAB CHEMISTRY METHOD 07/13/2024 10:41 AM [facility] Chloride 106 96 - 110 mmol/L LAB CHEMISTRY METHOD 07/13/2024 10:41 AM [facility] CO2 27 21 - 32 mmol/L LAB CHEMISTRY METHOD 07/13/2024 10:41 AM [facility] Anion Gap 7 3 - 11 LAB CHEMISTRY METHOD 07/13/2024 10:41 AM [facility] Glucose 76 70 - 100 mg/dL LAB CHEMISTRY METHOD 07/13/2024 10:41 AM [facility] BUN 11 5 - 25 mg/dL LAB CHEMISTRY METHOD 07/13/2024 10:41 AM [facility] Creatinine 0.80 0.50 - 1.10 mg/dL LAB CHEMISTRY METHOD 07/13/2024 10:41 AM [facility] eGFR 78 >=60 mL/min/1. 73m2 LAB CHEMISTRY METHOD 07/13/2024 10:41 AM [facility] Comment:Calculation based on the??Chronic Kidney Disease Epidemiology Collaboration (CKD-EPI) equation refit??without adjustment for race. BUN/Creatinine Ratio 13.8 LAB CHEMISTRY METHOD 07/13/2024 10:41 AM [facility] Calcium 8.4(L) 8.5 - 10.5 mg/dL LAB CHEMISTRY METHOD 07/13/2024 10:41 AM [facility] Blood Venous blood specimen / Unknown Venipuncture / Unknown 07/13/2024 5:39 AM EST 07/13/2024 9:58 AM EST us Damien Kay MD LAB BLOOD ORDERABLES Final Resul t [facility] [address] [place] [address], [place] [phone] documented in this encounter Visit Diagnoses Diagnosis Heart failure, unspecified ([facility] V24, [facility] V28) Heart failure, unspecified Sepsis, unspecified organism ([facility] V24, [facility] V28) Hyperlipidemia, unspecified Type 2 diabetes mellitus without complications ([facility] V24, [facility] V28) Other cerebrovascular disease documented in this encounter Care Teams Fisher Net Relationship Specialty Start Date End Date Damien Kay MD [address] [place] [address], [phone] PCP - General Family Medicine 07/05/24 documented as of this encounter
--- OUTSIDE RECORDS SUMMARY | 2024-09-22 13:11 | XMS_ITS | Encounter Summary ---
Author Organization [facility] Address [address] [place] [phone] Care Team Providers Care Behavioral Scientist Name Role Phone Damien Kay MD Primary Care Provider [phone] Encounter Details Date Type Department Care Team (Latest Contact Info) Description 07/19/2024 Lab Requisition [facility] - Main Lab 299 [facility] [place] [address] Damien Kay MD 38 [facility] [address] [place], [phone] Heart failure, unspecified (CMS/HCC V24, CMS/HCC [...] CBC auto differential (07/20/2024 2:13 PM EST) [facility] WBC 7.9 4.8 - 10.8 K/mcL LAB HEMETOLOGY METHOD 07/20/2024 3:15 PM [facility] RBC 3.40(L) 3.80 - 4.80 M/mcL LAB HEMETOLOGY METHOD 07/20/2024 3:15 PM [facility] Hemoglobin 10.3(L) 11.5 - 16.0 g/dL LAB HEMETOLOGY METHOD 07/20/2024 3:15 PM [facility] Hematocrit 32.2(L) 35.0 - 47.0 % LAB HEMETOLOGY METHOD 07/20/2024 3:15 PM [facility] MCV 94.7 79.0 - 98.0 FL LAB HEMETOLOGY METHOD 07/20/2024 3:15 PM [facility] MCH 30.3 27.0 - 32.0 pcg LAB HEMETOLOGY METHOD 07/20/2024 3:15 PM [facility] MCHC 32.0 32.0 - 37.0 g/dL LAB HEMETOLOGY METHOD 07/20/2024 3:15 PM [facility] RDW 19.0(H) 11.0 - 15.0 % LAB HEMETOLOGY METHOD 07/20/2024 3:15 PM [facility] Platelets 622(H) 130 - 400 K/mcL LAB HEMETOLOGY METHOD 07/20/2024 3:15 PM [facility] MPV 10.8 7.0 - 11.0 FL LAB HEMETOLOGY METHOD 07/20/2024 3:15 PM [facility] NRBC 0.0 <1.0 % LAB HEMETOLOGY METHOD 07/20/2024 3:15 PM [facility] NRBC Absolute 0.00 <0.10 K/mcL LAB HEMETOLOGY METHOD 07/20/2024 3:15 PM [facility] Neutrophils Relative 63.1 % LAB HEMETOLOGY METHOD 07/20/2024 3:15 PM [facility] Lymphocytes Relative 26.1 % LAB HEMETOLOGY METHOD 07/20/2024 3:15 PM [facility] Monocytes Relative 8.3 % LAB HEMETOLOGY METHOD 07/20/2024 3:15 PM [facility] Eosinophils Relative 1.0 % LAB HEMETOLOGY METHOD 07/20/2024 3:15 PM [facility] Basophils Relative 1.4 % LAB HEMETOLOGY METHOD 07/20/2024 3:15 PM [facility] Immature Granulocytes Relative 0.1 % LAB HEMETOLOGY METHOD 07/20/2024 3:15 PM [facility] Neutrophils Absolute 4.96 1.50 - 7.00 K/mcL LAB HEMETOLOGY METHOD 07/20/2024 3:15 PM [facility] Lymphocytes Absolute 2.05 1.00 - 5.00 K/mcL LAB HEMETOLOGY METHOD 07/20/2024 3:15 PM [facility] Monocytes Absolute 0.65 0.20 - 1.00 K/mcL LAB HEMETOLOGY METHOD 07/20/2024 3:[address] [facility] Eosinophils Absolute 0.08 0.00 - 0.50 K/[facility] LAB HEMETOLOGY METHOD 07/20/2024 3:[address] [facility] Basophils Absolute 0.11 0.00 - 0.20 K/[facility] LAB HEMETOLOGY METHOD 07/20/2024 3:[address] [facility] Immature Granulocytes Absolute 0.01 0.00 - 0.03 K/[facility] LAB HEMETOLOGY METHOD 07/20/2024 3:[address] [facility] Blood Venous blood specimen / Unknown Venipuncture / Unknown 07/20/2024 2:13 PM EST 07/20/2024 2:59 PM EST Damien Kay MD LAB BLOOD ORDERABLES Final Resul t Performing Organization Address [facility]/ZIP Co de Phone Number [facility] [address] [place] [address], [place] [phone] * (ABNORMAL) B-type natriuretic peptide (07/20/2024 2:13 PM EST) Pathologist [facility] BNP 299(H) <=100 pcg/mL LAB CHEMISTRY METHOD 07/20/2024 4:[address] [facility] Blood Venous blood specimen / Unknown Venipuncture / Unknown 07/20/2024 2:13 PM EST 07/20/2024 2:58 PM EST Damien Kay MD LAB BLOOD ORDERABLES Final Resul t [facility] [address] [place] [address], [place] [phone] * Basic metabolic panel (07/20/2024 2:13 PM EST) Sodium 139 133 - 145 mmol/L LAB CHEMISTRY METHOD 07/20/2024 3:43 PM [facility] Potassium 3.6 3.5 - 5.5 mmol/L LAB CHEMISTRY METHOD 07/20/2024 3:43 PM [facility] Chloride 103 96 - 110 mmol/L LAB CHEMISTRY METHOD 07/20/2024 3:43 PM [facility] CO2 26 21 - 32 mmol/L LAB CHEMISTRY METHOD 07/20/2024 3:43 PM [facility] Anion Gap 10 3 - 11 LAB CHEMISTRY METHOD 07/20/2024 3:43 PM [facility] Glucose 90 70 - 100 mg/dL LAB CHEMISTRY METHOD 07/20/2024 3:43 PM [facility] BUN 10 5 - 25 mg/dL LAB CHEMISTRY METHOD 07/20/2024 3:43 PM [facility] Creatinine 0.83 0.50 - 1.10 mg/dL LAB CHEMISTRY METHOD 07/20/2024 3:43 PM [facility] eGFR 75 >=60 mL/min/1. 73m2 LAB CHEMISTRY METHOD 07/20/2024 3:43 PM [facility] Comment:Calculation based on the??Chronic Kidney Disease Epidemiology Collaboration (CKD-EPI) equation refit??without adjustment for race. BUN/Creatinine Ratio 12.0 LAB CHEMISTRY METHOD 07/20/2024 3:43 PM [facility] Calcium 9.2 8.5 - 10.5 mg/dL LAB CHEMISTRY METHOD 07/20/2024 3:43 PM [facility] Blood Venous blood specimen / Unknown Venipuncture / Unknown 07/20/2024 2:13 PM EST 07/20/2024 3:00 PM EST us Damien Kay MD LAB BLOOD ORDERABLES Final Resul t [facility] [address] [place] [address], [place] [phone] documented in this encounter Visit Diagnoses Diagnosis Heart failure, unspecified ([facility] V24, [facility] V28) Heart failure, unspecified Sepsis, unspecified organism ([facility] V24, [facility] V28) Hyperlipidemia, unspecified Type 2 diabetes mellitus without complications ([facility] V24, [facility] V28) Other cerebrovascular disease documented in this encounter Care Teams Behavioral Scientist Relationship Specialty Start Date End Date Damien Kay MD [address] [place] [address], [phone] PCP - General Family Medicine 07/05/24 documented as of this encounter
--- OUTSIDE RECORDS SUMMARY | 2024-09-22 13:11 | XMS_ITS | Encounter Summary ---
Author Organization [facility] Address [address] [place] [phone] Care Team Providers Care Wooden Tank Erector Name Role Phone Damien Kay MD Primary Care Provider [phone] Encounter Details Date Type Department Care Team (Late st Contact Info) Description 08/15/2024 Lab Requisition [facility] - Main Lab 299 [facility] [place] [address] Damien Kay MD [address] [place] [address] 204 [facility] [phone] Type 2 diabetes mellitus without complications [...] unspecified documented in this encounter Care Teams Wooden Tank Erector Relationship Specialty Start Date End Date Damien Kay MD [address] [place] [address] 204 [place], [phone] PCP - General Family Medicine 07/05/24 documented as of this encounter
--- OUTSIDE RECORDS SUMMARY | 2024-09-22 13:11 | XMS_ITS | Encounter Summary ---
Author Organization [facility] Address [address] [place] [phone] Care Team Providers Care Casualty Claims Supervisor Name Role Phone Damien Kay MD Primary Care Provider [phone] Encounter Details Date Type Department Care Team (Late st Contact Info) Description 05/31/2024 Lab Requisition [facility] - Main Lab 299 [facility] [place] [address] Damien Kay MD 38 [facility] 204 [place], [phone] Unspecified atrial fibrillation (CMS/HCC V24, CMS/HCC [...] mmol/L LAB CHEMISTRY METHOD 06/01/2024 8:[address] [facility] Potassium 3.9 3.5 - 5.5 mmol/L LAB CHEMISTRY METHOD 06/01/2024 8:[address] [facility] Chloride 107 96 - 110 mmol/L LAB CHEMISTRY METHOD 06/01/2024 8:[address] [facility] CO2 27 21 - 32 mmol/L LAB CHEMISTRY METHOD 06/01/2024 8:[address] [facility] Anion Gap 7 3 - 11 LAB CHEMISTRY METHOD 06/01/2024 8:[address] [facility] Glucose 104(H) 70 - 100 mg/dL LAB CHEMISTRY METHOD 06/01/2024 8:[address] [facility] BUN 25 5 - 25 mg/dL LAB CHEMISTRY METHOD 06/01/2024 8:[address] [facility] Creatinine 1.46(H) 0.50 - 1.10 mg/dL LAB CHEMISTRY METHOD 06/01/2024 8:[address] [facility] eGFR 38(L) >=60 mL/min/1. 73m2 LAB CHEMISTRY METHOD 06/01/2024 8:[address] [facility] Comment:Calculation based on the??Chronic Kidney Disease Epidemiology Collaboration (CKD-EPI) equation refit??without adjustment for race. BUN/Creatinine Ratio 17.1 LAB CHEMISTRY METHOD 06/01/2024 8:[address] [facility] Calcium 8.4(L) 8.5 - 10.5 mg/dL LAB CHEMISTRY METHOD 06/01/2024 8:[address] [facility] Blood Venous blood specimen / Unknown Venipuncture / Unknown 06/01/2024 5:17 AM EST 06/01/2024 8:06 AM EST us Damien Kay MD LAB BLOOD ORDERABLES Final Resul t [facility] [address] [place] [address], * (ABNORMAL) Complete blood count (06/01/2024 5:17 AM EST) WBC 9.3 4.8 - 10.8 K/mcL LAB HEMETOLOGY METHOD 06/01/2024 8:[address] [facility] RBC 3.70(L) 3.80 - 4.80 M/mcL LAB HEMETOLOGY METHOD 06/01/2024 8:[address] [facility] Hemoglobin 9.5(L) 11.5 - 16.0 g/dL LAB HEMETOLOGY METHOD 06/01/2024 8:[address] [facility] Hematocrit 31.2(L) 35.0 - 47.0 % LAB HEMETOLOGY METHOD 06/01/2024 8:[address] [facility] MCV 84.3 79.0 - 98.0 FL LAB HEMETOLOGY METHOD 06/01/2024 8:[address] [facility] MCH 25.7(L) 27.0 - 32.0 pcg LAB HEMETOLOGY METHOD 06/01/2024 8:[address] [facility] MCHC 30.4(L) 32.0 - 37.0 g/dL LAB HEMETOLOGY METHOD 06/01/2024 8:[address] [facility] RDW 20.8(H) 11.0 - 15.0 % LAB HEMETOLOGY METHOD 06/01/2024 8:[address] [facility] Platelets 532(H) 130 - 400 K/mcL LAB HEMETOLOGY METHOD 06/01/2024 8:[address] [facility] MPV 11.7(H) 7.0 - 11.0 FL LAB HEMETOLOGY METHOD 06/01/2024 8:22 AM EST [facility] NRBC 0.0 <1.0 % LAB HEMETOLOGY METHOD 06/01/2024 8:22 AM EST [facility] NRBC Absolute 0.00 <0.10 K/mcL LAB HEMETOLOGY METHOD 06/01/2024 8:22 AM EST [facility] Blood Venous blood specimen / Unknown Venipuncture / Unknown 06/01/2024 5:17 AM EST 06/01/2024 8:06 AM EST us Damien Kay MD LAB BLOOD ORDERABLES Final Resul t [facility] [address] [place] [address], documented in this encounter Visit Diagnoses Diagnosis Unspecified atrial fibrillation (CMS/HCC V24, CMS/HCC V28) Type 2 diabetes mellitus without complications (CMS/HCC V24, CMS/HCC V28) Heart failure, unspecified (CMS/HCC V24, CMS/HCC V28) Heart failure, unspecified documented in this encounter Care Teams Casualty Claims Supervisor Relationship Specialty Start Date End Date Damien Kay MD [address] [place] [address] 204 [place], [phone] PCP - General Family Medicine 07/05/24 documented as of this encounter
--- OUTSIDE RECORDS SUMMARY | 2024-09-22 13:11 | XMS_ITS | Encounter Summary ---
Author Organization [facility] Address [address] [place] [phone] Care Team Providers Care [employer] Supervisor Name Role Phone Damien Kay MD Primary Care Provider [phone] Encounter Details Date Type Department Care Team (Late st Contact Info) Description 04/23/2024 Lab Requisition [facility] - Main Lab 299 [facility] [place] [address] Damien Kay MD [address] [place] [address] 204 [facility] [phone] Type 2 diabetes mellitus without [...] V28) documented in this encounter Care Teams [employer] Supervisor Relationship Specialty Start Date End Date Damien Kay MD [address] [place] [address] 204 [place], [phone] PCP - General Family Medicine 07/05/24 documented as of this encounter
--- OUTSIDE RECORDS SUMMARY | 2024-09-22 13:11 | XMS_ITS | Encounter Summary ---
Author Organization [facility] Address [address] [place] [phone] Care Team Providers Care Manager Product Management Name Role Phone Damien Kay MD Primary Care Provider [phone] Encounter Details Date Type Department Care Team (Late st Contact Info) Description 04/22/2024 Lab Requisition [facility] - Main Lab 299 [facility] [place] [address] Damien Kay MD 38 [facility] 204 [place], [phone] Unspecified atrial fibrillation (CMS/HCC V24, CMS/HCC [...] mmol/L LAB CHEMISTRY METHOD 04/22/2024 12:10 PM [facility] Potassium 6.7(HH) 3.5 - 5.5 mmol/L LAB CHEMISTRY METHOD 04/22/2024 12:10 PM [facility] Chloride 102 96 - 110 mmol/L LAB CHEMISTRY METHOD 04/22/2024 12:10 PM [facility] CO2 23 21 - 32 mmol/L LAB CHEMISTRY METHOD 04/22/2024 12:10 PM [facility] Anion Gap 10 3 - 11 LAB CHEMISTRY METHOD 04/22/2024 12:10 PM [facility] Glucose 174(H) 70 - 100 mg/dL LAB CHEMISTRY METHOD 04/22/2024 12:10 PM [facility] BUN 37(H) 5 - 25 mg/dL LAB CHEMISTRY METHOD 04/22/2024 12:10 PM [facility] Creatinine 1.99(H) 0.50 - 1.10 mg/dL LAB CHEMISTRY METHOD 04/22/2024 12:10 PM [facility] eGFR 26(L) >=60 mL/min/1. 73m2 LAB CHEMISTRY METHOD 04/22/2024 12:10 PM [facility] Comment:Calculation based on the??Chronic Kidney Disease Epidemiology Collaboration (CKD-EPI) equation refit??without adjustment for race. BUN/Creatinine Ratio 18.6 LAB CHEMISTRY METHOD 04/22/2024 12:10 PM [facility] Calcium 10.8(H) 8.5 - 10.5 mg/dL LAB CHEMISTRY METHOD 04/22/2024 12:10 PM [facility] AST (SGOT) 29 10 - 42 unit/L LAB CHEMISTRY METHOD 04/22/2024 12:10 PM [facility] ALT (SGPT) 23 10 - 60 unit/L LAB CHEMISTRY METHOD 04/22/2024 12:10 PM [facility] Alkaline Phosphatase 75 42 - 121 unit/L LAB CHEMISTRY METHOD 04/22/2024 12:10 PM [facility] Total Protein 7.2 6.0 - 8.0 g/dL LAB CHEMISTRY METHOD 04/22/2024 12:10 PM [facility] Albumin 3.3 3.2 - 5.0 g/dL LAB CHEMISTRY METHOD 04/22/2024 12:10 PM [facility] Total Bilirubin 0.3 0.0 - 1.4 mg/dL LAB CHEMISTRY METHOD 04/22/2024 12:10 PM [facility] Blood Venous blood specimen / Unknown Venipuncture / Unknown 04/22/2024 8:06 AM EST 04/22/2024 10:44 AM EST us Damien Kay MD LAB BLOOD ORDERABLES Final Resul t [facility] [address] [place] [address], * (ABNORMAL) Complete blood count (04/22/2024 8:06 AM EST) WBC 18.6(H) 4.8 - 10.8 K/mcL LAB HEMETOLOGY METHOD 04/22/2024 11:34 AM EST [facility] RBC 4.30 3.80 - 4.80 M/mcL LAB HEMETOLOGY METHOD 04/22/2024 11:34 AM [facility] Hemoglobin 11.0(L) 11.5 - 16.0 g/dL LAB HEMETOLOGY METHOD 04/22/2024 11:34 AM EST [facility] Hematocrit 37.3 35.0 - 47.0 % LAB HEMETOLOGY METHOD 04/22/2024 11:34 AM [facility] MCV 87.4 79.0 - 98.0 FL LAB HEMETOLOGY METHOD 04/22/2024 11:34 AM [facility] MCH 25.8(L) 27.0 - 32.0 pcg LAB HEMETOLOGY METHOD 04/22/2024 11:34 AM [facility] MCHC 29.5(L) 32.0 - 37.0 g/dL LAB HEMETOLOGY METHOD 04/22/2024 11:34 AM [facility] RDW 18.0(H) 11.0 - 15.0 % LAB HEMETOLOGY METHOD 04/22/2024 11:34 AM [facility] Platelets 600(H) 130 - 400 K/mcL LAB HEMETOLOGY METHOD 04/22/2024 11:34 AM [facility] MPV 11.7(H) 7.0 - 11.0 FL LAB HEMETOLOGY METHOD 04/22/2024 11:34 AM [facility] NRBC 0.0 <1.0 % LAB HEMETOLOGY METHOD 04/22/2024 11:34 AM [facility] NRBC Absolute 0.00 <0.10 K/mcL LAB HEMETOLOGY METHOD 04/22/2024 11:34 AM [facility] Blood Venous blood specimen / Unknown Venipuncture / Unknown 04/22/2024 8:06 AM EST 04/22/2024 10:44 AM EST us Damien Kay MD LAB BLOOD ORDERABLES Final Resul t [facility] [address] [place] [address], documented in this encounter Visit Diagnoses Diagnosis Unspecified atrial fibrillation (CMS/HCC V24, [facility] V28) Sepsis, unspecified organism ([facility] V24, [facility] V28) Heart failure, unspecified ([facility] V24, [facility] V28) Heart failure, unspecified Type 2 diabetes mellitus without complications ([facility] V24, [facility] V28) documented in this encounter Care Teams Manager Product Management Relationship Specialty Start Date End Date Damien Kay MD [address] [place] [address], [phone] PCP - General Family Medicine 07/05/24 documented as of this encounter
--- OUTSIDE RECORDS SUMMARY | 2024-09-22 13:11 | XMS_ITS | Encounter Summary ---
Author Organization [facility] Address [id number] [place] [phone] Care Team Providers Care Dairy Inspector Name Role Phone Damien Kay MD Primary Care Provider [phone] Encounter Details Date Type Department Care Team (Late st Contact Info) Description 06/07/[address] [facility] - Main Lab [address] [facility] [place] [address] Damien Kay MD 38 [facility] [address] [place], [phone] Unspecified atrial fibrillation (CMS/HCC V24, CMS/HCC [...] mmol/L LAB CHEMISTRY METHOD 06/08/2024 2:17 PM [facility] Potassium 3.5 3.5 - 5.5 mmol/L LAB CHEMISTRY METHOD 06/08/2024 2:17 PM [facility] Chloride 108 96 - 110 mmol/L LAB CHEMISTRY METHOD 06/08/2024 2:17 PM [facility] CO2 27 21 - 32 mmol/L LAB CHEMISTRY METHOD 06/08/2024 2:17 PM [facility] Anion Gap 6 3 - 11 LAB CHEMISTRY METHOD 06/08/2024 2:17 PM [facility] Glucose 88 70 - 100 mg/dL LAB CHEMISTRY METHOD 06/08/2024 2:17 PM [facility] BUN 17 5 - 25 mg/dL LAB CHEMISTRY METHOD 06/08/2024 2:17 PM [facility] Creatinine 1.14(H) 0.50 - 1.10 mg/dL LAB CHEMISTRY METHOD 06/08/2024 2:17 PM [facility] eGFR 51(L) >=60 mL/min/1. 73m2 LAB CHEMISTRY METHOD 06/08/2024 2:17 PM [facility] Comment:Calculation based on the??Chronic Kidney Disease Epidemiology Collaboration (CKD-EPI) equation refit??without adjustment for race. BUN/Creatinine Ratio 14.9 LAB CHEMISTRY METHOD 06/08/2024 2:17 PM [facility] Calcium 8.5 8.5 - 10.5 mg/dL LAB CHEMISTRY METHOD 06/08/2024 2:17 PM [facility] Blood Venous blood specimen / Unknown Venipuncture / Unknown 06/08/2024 7:36 AM EST 06/08/2024 11:14 AM EST Damien Kay MD LAB BLOOD ORDERABLES Final Resul t [facility] [address] [place] [address], * (ABNORMAL) Complete blood count (06/08/2024 7:36 AM EST) WBC 9.0 4.8 - 10.8 K/mcL LAB HEMETOLOGY METHOD 06/08/2024 11:39 AM [facility] RBC 3.40(L) 3.80 - 4.80 M/mcL LAB HEMETOLOGY METHOD 06/08/2024 11:39 AM [facility] Hemoglobin 8.7(L) 11.5 - 16.0 g/dL LAB HEMETOLOGY METHOD 06/08/2024 11:39 AM [facility] Hematocrit 28.2(L) 35.0 - 47.0 % LAB HEMETOLOGY METHOD 06/08/2024 11:39 AM [facility] MCV 83.7 79.0 - 98.0 FL LAB HEMETOLOGY METHOD 06/08/2024 11:39 AM [facility] MCH 25.8(L) 27.0 - 32.0 pcg LAB HEMETOLOGY METHOD 06/08/2024 11:39 AM [facility] MCHC 30.9(L) 32.0 - 37.0 g/dL LAB HEMETOLOGY METHOD 06/08/2024 11:39 AM [facility] RDW 22.4(H) 11.0 - 15.0 % LAB HEMETOLOGY METHOD 06/08/2024 11:39 AM [facility] Platelets 579(H) 130 - 400 K/mcL LAB HEMETOLOGY METHOD 06/08/2024 11:39 AM [facility] MPV 10.8 7.0 - 11.0 FL LAB HEMETOLOGY METHOD 06/08/2024 11:39 AM EST [facility] NRBC 0.0 <1.0 % LAB HEMETOLOGY METHOD 06/08/2024 11:39 AM EST [facility] NRBC Absolute 0.00 <0.10 K/mcL LAB HEMETOLOGY METHOD 06/08/2024 11:39 AM EST [facility] Blood Venous blood specimen / Unknown Venipuncture / Unknown 06/08/2024 7:36 AM EST 06/08/2024 11:14 AM EST us Damien Kay MD LAB BLOOD ORDERABLES Final Resul t [facility] [address] [place] [address], documented in this encounter Visit Diagnoses Diagnosis Unspecified atrial fibrillation (CMS/HCC V24, CMS/HCC V28) Type 2 diabetes mellitus without complications (CMS/HCC V24, CMS/HCC V28) Heart failure, unspecified (CMS/HCC V24, CMS/HCC V28) Heart failure, unspecified documented in this encounter Care Teams Dairy Inspector Relationship Specialty Start Date End Date Damien Kay MD [address] [place] [address], [phone] PCP - General Family Medicine 07/05/24 documented as of this encounter
--- OUTSIDE RECORDS SUMMARY | 2024-09-22 13:11 | XMS_ITS | Encounter Summary ---
Author Organization [facility] Address [address] [place] [phone] Care Team Providers Care Bench Examiner Name Role Phone Damien Kay MD Primary Care Provider [phone] Encounter Details Date Type Department Care Team (Late st Contact Info) Description 04/11/2024 Lab Requisition [facility] - Main Lab [address] [facility] [address] [place] [address] Damien Kay MD 38 [facility] [address] [place], [phone] Type 2 diabetes mellitus without complications [...] K/mcL LAB HEMETOLOGY METHOD 04/11/2024 10:44 AM [facility] RBC 3.70(L) 3.80 - 4.80 M/mcL LAB HEMETOLOGY METHOD 04/11/2024 10:44 AM [facility] Hemoglobin 9.5(L) 11.5 - 16.0 g/dL LAB HEMETOLOGY METHOD 04/11/2024 10:44 AM [facility] Hematocrit 33.0(L) 35.0 - 47.0 % LAB HEMETOLOGY METHOD 04/11/2024 10:44 AM [facility] MCV 88.7 79.0 - 98.0 FL LAB HEMETOLOGY METHOD 04/11/2024 10:44 AM [facility] MCH 25.5(L) 27.0 - 32.0 pcg LAB HEMETOLOGY METHOD 04/11/2024 10:44 AM [facility] MCHC 28.8(L) 32.0 - 37.0 g/dL LAB HEMETOLOGY METHOD 04/11/2024 10:44 AM [facility] RDW 17.0(H) 11.0 - 15.0 % LAB HEMETOLOGY METHOD 04/11/2024 10:44 AM [facility] Platelets 469(H) 130 - 400 K/mcL LAB HEMETOLOGY METHOD 04/11/2024 10:44 AM [facility] MPV 11.2(H) 7.0 - 11.0 FL LAB HEMETOLOGY METHOD 04/11/2024 10:44 AM [facility] NRBC 0.0 <1.0 % LAB HEMETOLOGY METHOD 04/11/2024 10:44 AM [facility] NRBC Absolute 0.00 <0.10 K/mcL LAB HEMETOLOGY METHOD 04/11/2024 10:44 AM [facility] Neutrophils Relative 71.8 % LAB HEMETOLOGY METHOD 04/11/2024 10:44 AM [facility] Lymphocytes Relative 17.7 % LAB HEMETOLOGY METHOD 04/11/2024 10:44 AM [facility] Monocytes Relative 8.5 % LAB HEMETOLOGY METHOD 04/11/2024 10:44 AM [facility] Eosinophils Relative 0.9 % LAB HEMETOLOGY METHOD 04/11/2024 10:44 AM [facility] Basophils Relative 0.7 % LAB HEMETOLOGY METHOD 04/11/2024 10:44 AM [facility] Immature Granulocytes Relative 0.4 % LAB HEMETOLOGY METHOD 04/11/2024 10:44 AM [facility] Neutrophils Absolute 7.90(H) 1.50 - 7.00 K/mcL LAB HEMETOLOGY METHOD 04/11/2024 10:44 AM [facility] Lymphocytes Absolute 1.95 1.00 - 5.00 K/mcL LAB HEMETOLOGY METHOD 04/11/2024 10:44 AM [facility] Monocytes Absolute 0.94 0.20 - 1.00 K/mcL LAB HEMETOLOGY METHOD 04/11/2024 10:44 AM [facility] Eosinophils Absolute 0.10 0.00 - 0.50 K/mcL LAB HEMETOLOGY METHOD 04/11/2024 10:44 AM [facility] Basophils Absolute 0.08 0.00 - 0.20 K/mcL LAB HEMETOLOGY METHOD 04/11/2024 10:44 AM [facility] Immature Granulocytes Absolute 0.04(H) 0.00 - 0.03 K/mcL LAB HEMETOLOGY METHOD 04/11/2024 10:44 AM [facility] Blood Venous blood specimen / Unknown Venipuncture / Unknown 04/11/2024 6:56 AM EST 04/11/2024 9:41 AM EST us Damien Kay MD LAB BLOOD ORDERABLES Final Resul t [facility] [address] [place] [address], [place] [phone] * (ABNORMAL) Comprehensive metabolic panel (04/11/2024 6:56 AM EST) Sodium 144 133 - 145 mmol/L LAB CHEMISTRY METHOD 04/11/2024 12:18 PM [facility] Potassium 3.9 3.5 - 5.5 mmol/L LAB CHEMISTRY METHOD 04/11/2024 12:18 PM [facility] Chloride 109 96 - 110 mmol/L LAB CHEMISTRY METHOD 04/11/2024 12:18 PM [facility] CO2 26 21 - 32 mmol/L LAB CHEMISTRY METHOD 04/11/2024 12:18 PM [facility] Anion Gap 9 3 - 11 LAB CHEMISTRY METHOD 04/11/2024 12:18 PM [facility] Glucose 107(H) 70 - 100 mg/dL LAB CHEMISTRY METHOD 04/11/2024 12:18 PM [facility] BUN 19 5 - 25 mg/dL LAB CHEMISTRY METHOD 04/11/2024 12:18 PM [facility] Creatinine 1.13(H) 0.50 - 1.10 mg/dL LAB CHEMISTRY METHOD 04/11/2024 12:18 PM [facility] eGFR 52(L) >=60 mL/min/1. 73m2 LAB CHEMISTRY METHOD 04/11/2024 12:18 PM [facility] Comment:Calculation based on the??Chronic Kidney Disease Epidemiology Collaboration (CKD-EPI) equation refit??without adjustment for race. BUN/Creatinine Ratio 16.8 LAB CHEMISTRY METHOD 04/11/2024 12:18 PM [facility] Calcium 9.5 8.5 - 10.5 mg/dL LAB CHEMISTRY METHOD 04/11/2024 12:18 PM [facility] AST (SGOT) 32 10 - 42 unit/L LAB CHEMISTRY METHOD 04/11/2024 12:18 PM [facility] ALT (SGPT) 25 10 - 60 unit/L LAB CHEMISTRY METHOD 04/11/2024 12:18 PM [facility] Alkaline Phosphatase 72 42 - 121 unit/L LAB CHEMISTRY METHOD 04/11/2024 12:18 PM [facility] Total Protein 5.8(L) 6.0 - 8.0 g/dL LAB CHEMISTRY METHOD 04/11/2024 12:18 PM [facility] Albumin 2.7(L) 3.2 - 5.0 g/dL LAB CHEMISTRY METHOD 04/11/2024 12:18 PM [facility] Total Bilirubin 0.6 0.0 - 1.4 mg/dL LAB CHEMISTRY METHOD 04/11/2024 12:18 PM [facility] Blood Venous blood specimen / Unknown Venipuncture / Unknown 04/11/2024 6:56 AM EST 04/11/2024 9:41 AM EST us Damien Kay MD LAB BLOOD ORDERABLES Final Resul t [facility] [address] [place] [address], documented in this encounter Visit Diagnoses Diagnosis Type 2 diabetes mellitus without complications (CMS/HCC V24, CMS/HCC V28) documented in this encounter Care Teams Bench Examiner Relationship Specialty Start Date End Date Damien Kay MD [address] [place] [address], [phone] PCP - General Family Medicine 07/05/24 documented as of this encounter
[2024-09-22 15:31] LABS: MANUAL DIFF FLAG NO
[2024-09-22 15:48] LABS: Basophils Absolute Auto 0.1 X10*3/uL (0.0-0.2); Basophils Percent Auto 1.1 % (0-2); Eosinophils Absolute Auto 0.1 X10*3/uL (0.0-0.4); Eosinophils Percent Auto 0.8 % (0-4); Hematocrit 22.2 % (37.0-47.0); Imm Gran Abs Auto 0.02 X10*3/uL (0.00-0.03); Imm Gran Pct Auto 0.3 % (0.0-0.4); Lymphocytes Absolute Auto 1.7 X10*3/uL (1.2-4.9); Lymphocytes Percent Auto 21.1 % (20-40); Mean Corpuscular HGB Conc 31.1 g/dl (31.0-35.0); Mean Corpuscular Hemoglobin 27.1 pg (27.0-33.0); Mean Corpuscular Volume 87.1 fL (80.0-98.0); Mean Platelet Volume 10.3 fL (9.4-12.3); Monocytes Absolute Auto 0.9 X10*3/uL (0.1-1.2); Neutrophils Absolute Auto 5.1 x10*3/uL (2.0-8.3); Neutrophils Percent Auto 64.7 % (45-73); Platelet Count 508 X10*3/uL (160-400); Red Blood Count 2.55 X10*6/uL (4.20-5.50); Red Cell Distribution Width 16.8 % (11.0-16.0); White Blood Count 7.9 X10*3/uL (4.8-10.8)
[2024-09-22 15:53] LABS: Hemoglobin 6.9 g/dl (12.0-16.0)
--- NOTE | 2024-09-22 17:04 | PC.NURSE ---
RBC's begun per orders; no adverse reaction noted at this time; pt resting quietly; vss@baseline; will cont to monitor/tx per orders
--- NOTE | 2024-09-22 18:46 | P.HPHOSP_ITS ---
History of Present Illness Date of Service: 09/22/24 Chief Complaint: anemia 74-year-old female with PMH significant for be AFib on Eliquis, HLD, HTN, history of CVA with residual hemiplegia, [id number]-[id number]-[id number] type 2 diabetes, CKD 3, vascular dementia came in from skilled nursing for evaluation of low hemoglobin at the skilled nursing 6.1 and the patient looks pale, no obvious external bleed or hemorrhage, patient currently has no complaint, no CP, no abdominal pain, no blood in the stool. Repeat hemoglobin in ER 6.9 Review of Systems 2 Review of Systems: unable to obtain secondary to dementia [facility] Medical History Paroxysmal atrial fibrillation Cardiomyopathy Acute CHF Sepsis Anemia Pneumonia Social History Household Members: Unknown / Unable to assess Housing: Snf Do you presently have visiting nurse or other home services: No Unable to assess alcohol history related to: Unable to respond Patient Tobacco Use Status: Former Tobacco user Tobacco use type: Cigarette Smoked in Last 30 Days: No e-Cigarette/Vaping Use: Never Used Second Hand Smoke Exposure: No Use of substances other than those prescribed or required for medical reasons: Unable to respond Advance Directives: Yes Advance Directives on File: Yes Advance Directives Date on File: 04/11/24 Do you have a plan to hurt others: No Plan Nutrition Risks: Emaciation/Cachexia service: No Meds Allergies Allergy/AdvReac Type Severity Reaction Status Date / Time tuberculin, purified protein Allergy Unknown UNK Verified 09/22/24 11:23 deriva [TB TEST] aspirin [ASA] AdvReac Unknown GI UPSET, Verified 09/22/24 11:23 stomach upset Home Medications ?Medication ?Instructions ?Recorded ?Confirmed ?Last Taken ?Type apixaban 5 mg tablet (Eliquis) 5 mg PO BID 03/26/24 05/23/24 03/25/24 19:00 History atorvastatin 80 mg tablet 80 mg PO BEDTIME 03/26/24 05/23/24 Unknown History bisacodyl 10 mg rectal suppository 10 mg ME DAILY PRN Constipation 03/26/24 05/23/24 Unknown History cholecalciferol (vitamin D3) 25 25 mcg PO DAILY 03/26/24 05/23/24 Unknown History mcg (1,000 unit) tablet clotrimazole 1 % topical cream 1 appl topical DAILY PRN Rash 03/26/24 05/23/24 Unknown History esomeprazole magnesium 40 mg 40 mg PO DAILY@0630 03/26/24 05/23/24 Unknown History capsule,delayed release ferrous sulfate 325 mg (65 mg 325 mg PO DAILY 03/26/24 05/23/24 Unknown History iron) tablet folic acid 1 mg tablet 1 mg PO DAILY 03/26/24 05/23/24 Unknown History gabapentin 100 mg capsule 100 mg PO BEDTIME 03/26/24 05/23/24 Unknown History loperamide 2 mg capsule 2 mg PO Q6H PRN Loose Stool 03/26/24 05/23/24 Unknown History melatonin 5 mg tablet 10 mg PO BEDTIME 03/26/24 05/23/24 Unknown History metformin 500 mg tablet 500 mg PO BID 03/26/24 05/23/24 Unknown History omega 1-wjl-msr-fish oil 1,000 mg 1 cap PO DAILY 03/26/24 05/23/24 Unknown History (120 mg-180 mg) capsule (Fish Oil) sennosides 8.6 mg tablet (senna) 8.6 mg PO DAILY 03/26/24 05/23/24 Unknown History sertraline 50 mg tablet 100 mg PO DAILY 03/26/24 05/23/24 Unknown History sodium phosphates 19 gram-7 118 ml ME DAILY PRN Constipation 03/26/24 05/23/24 Unknown History gram/118 mL enema (Fleet Enema) acetaminophen 325 mg tablet 650 mg PO Q6H PRN Fever Or Pain 04/22/24 05/23/24 Unknown History famotidine 20 mg tablet (Pepcid) 20 mg PO DAILY@1200 04/22/24 05/23/24 Unknown History mirtazapine 15 mg tablet (Remeron) See Rx Instructions .Route .COMPLEX 04/22/24 05/23/24 Unknown History ondansetron HCl 4 mg tablet 4 mg PO TIDWM 04/22/24 05/23/24 Unknown History Physical Exam 2 Vital Signs and Narrative: Vital Signs: Last Vital Signs Temp 98.4 F 09/22/24 18:20 Pulse 66 09/22/24 18:20 Resp 13 09/22/24 18:20 BP 176/45 H 09/22/24 18:20 Pulse Ox 98 09/22/24 14:17 O2 Del Method Room Air 09/22/24 14:17 BMI result Body Mass Index 17.1 Const: Other: awake alert no acute distress Resp: Other: clear to auscultation bilaterally no rales rhonchi or wheezes Cardio: Other: no S4; positive S1-S2; no S3 murmurs rubs or gallops GI: Other: soft nontender nondistended normoactive bowel sounds Extrem: Other: no edema bilaterally Results Labs 09/22/24 15:28 09/22/24 11:59 Labs: Laboratory Results - last 24 hr 09/22/24 09/22/24 09/22/24 11:29 11:52 11:59 MCV 87.7 MCH 27.5 MCHC 31.4 RDW 17.0 H Plt Count 515 H MPV 10.6 Immature Gran % (Auto) 0.4 Neut % (Auto) 77.2 H Lymph % (Auto) 13.0 L [place] % (Auto) 8.0 Eos % (Auto) 0.4 Baso % (Auto) 1.0 Lymph # (Auto) 1.0 L [place] # (Auto) 0.6 Eos # (Auto) 0.0 Baso # (Auto) 0.1 Abs Immat Gran (auto) 0.03 Absolute Neuts (auto) 6.0 Absolute Nucleated RBC 0.000 Nucleated RBC % (auto) 0.0 PT INR Anion Gap 11 L Estim Creat Clear Calc 46.9 Estimated GFR > 60 POC Glucose 104 Random Glucose 111 Calcium 9.4 D Total Bilirubin 0.4 AST 41 H ALT 31 Alkaline Phosphatase 58 B-Natriuretic Peptide 764 H Total Protein 6.8 Albumin 3.5 Lipase 11 Stool Occult Blood Blood Type A Positive Antibody Screen NEGATIVE Crossmatch See Detail 09/22/24 09/22/24 09/22/24 12:02 12:04 15:28 MCV 87.1 MCH 27.1 MCHC 31.1 RDW 16.8 H Plt Count 508 H MPV 10.3 Immature Gran % (Auto) 0.3 Neut % (Auto) 64.7 Lymph % (Auto) 21.1 [place] % (Auto) 12.0 H Eos % (Auto) 0.8 Baso % (Auto) 1.1 Lymph # (Auto) 1.7 [place] # (Auto) 0.9 Eos # (Auto) 0.1 Baso # (Auto) 0.1 Abs Immat Gran (auto) 0.02 Absolute Neuts (auto) 5.1 Absolute Nucleated RBC 0.000 Nucleated RBC % (auto) 0.0 PT 15.3 H INR 1.3 H Anion Gap Estim Creat Clear Calc Estimated GFR POC Glucose Random Glucose Calcium Total Bilirubin AST ALT Alkaline Phosphatase B-Natriuretic Peptide Total Protein Albumin Lipase Stool Occult Blood POSITIVE Blood Type Antibody Screen Crossmatch Assessment and Plan (1) Anemia: Qualifiers: Anemia type: other cause Other causes of anemia: other cause, not classified Qualified Code(s): D64.89 - Other specified anemias Status: Acute (2) GI bleed: Qualifiers: GI bleed type/associated pathology: unspecified gastrointestinal hemorrhage type Qualified Code(s): K92.2 - Gastrointestinal hemorrhage, unspecified Status: Acute (3) Paroxysmal atrial fibrillation: Status: Acute (4) Acute HFrEF (heart failure with reduced ejection fraction): Status: Acute Plan 74-year-old female with PMH significant for be AFib on Eliquis, HLD, HTN, history of CVA with residual hemiplegia, uvh-iqocvlh-pmseebuml type 2 diabetes, CKD 3, vascular dementia came in from skilled nursing for evaluation of low hemoglobin at the skilled nursing 6.1 and the patient looks pale, no obvious external bleed or hemorrhage,. patient on Eliquis for paroxysmal AFib 1. LGI bleed - hold Eliquis - transfuse 1 unit packed red cells - follow CBC in a.m. - GI consult 2. Anemia - as above; hold Eliquis - follow CBC 3. Paroxysmal atrial fibrillation - NSR by EKG - hold Eliquis at this time 4.HFr EF - stable and well compensated - continue outpatient therapies Full Code Pneumatics Requires 2 midnights going forward for transfusion secondary to lower GI bleed and specialty consultation. This can not be achieved a lesser acute setting Quality Stroke Does the patient have a stroke diagnosis?: No VTE Prior VTE?: No VTE Risk Level:: Medical - moderate - high VTE Device Contraindication: N/A - Device Ordered VTE Drug Contraindication: Treatment Not Indicated
--- NOTE | 2024-09-22 19:10 | PHA.MEDREC ---
Pharmacy Consult ? Medication Reconciliation Pharmacy has completed the medication reconciliation. UTILIZED LIST FROM [facility]
[2024-09-22 20:12] LABS: Glucose, Whole Blood 90 mg/dL (60-115)
[2024-09-23 00:06] VITALS: BP 141/65; PULSE 63; RESP 16; TEMP 36.1; O2SAT 98
[2024-09-23 03:16] VITALS: BP 130/71; PULSE 76; RESP 14; TEMP 36.6; O2SAT 98
[2024-09-23 03:17] VITALS: BMI 15.6
[2024-09-23 07:22] LABS: MANUAL DIFF FLAG NO
[2024-09-23 07:29] LABS: Basophils Absolute Auto 0.1 X10*3/uL (0.0-0.2); Basophils Percent Auto 1.4 % (0-2); Eosinophils Absolute Auto 0.2 X10*3/uL (0.0-0.4); Hematocrit 26.4 % (37.0-47.0); Hemoglobin 8.7 g/dl (12.0-16.0); Imm Gran Abs Auto 0.01 X10*3/uL (0.00-0.03); Imm Gran Pct Auto 0.2 % (0.0-0.4); Lymphocytes Absolute Auto 1.8 X10*3/uL (1.2-4.9); Lymphocytes Percent Auto 27.6 % (20-40); Mean Corpuscular Hemoglobin 28.4 pg (27.0-33.0); Mean Corpuscular Volume 86.3 fL (80.0-98.0); Mean Platelet Volume 10.6 fL (9.4-12.3); Monocytes Absolute Auto 0.9 X10*3/uL (0.1-1.2); Monocytes Percent Auto 14.4 % (2-11); Neutrophils Absolute Auto 3.4 x10*3/uL (2.0-8.3); Neutrophils Percent Auto 53.4 % (45-73); Platelet Count 455 X10*3/uL (160-400); Red Blood Count 3.06 X10*6/uL (4.20-5.50); White Blood Count 6.4 X10*3/uL (4.8-10.8)
[2024-09-23 07:48] VITALS: BP 158/58; PULSE 70; RESP 16; TEMP 36.3; O2SAT 99
[2024-09-23 07:50] LABS: Glucose, Whole Blood 86 mg/dL (60-115)
[2024-09-23 07:53] LABS: Alanine Aminotransferase 29 U/L (0-31); Albumin Level 3.1 g/dL (3.5-5.0); Alkaline Phosphatase 54 U/L (39-117); Anion Gap 13 (12-20); Aspartate Amino Transferase 44 U/L (5-31); Bilirubin Total 0.6 mg/dL (0.0-1.0); Blood Urea Nitrogen 12 mg/dL (9-16); Calcium 8.9 mg/dL (8.4-10.2); Carbon Dioxide 24 mmol/L (22-29); Chloride 105 mmol/L (96-108); Creatinine Clr Calc Pharmacy 43.8; Estimated Glomerular Filt Rate > 60; Glucose Random 90 mg/dL (60-115); Sodium 139 mmol/L (135-145); Total Protein 6.2 g/dL (6.5-8.0)
--- NOTE | 2024-09-23 08:37 | P.CDIM_ITS ---
PROVIDER RESPONSE TEXT: To clarify, the appropriate diagnosis supported by the clinical indicators: Cachexia QUERY TEXT: PHYSICIAN'S DOCUMENTATION REQUEST Date of Query: 09/23/2024 06:38 AM EDT Patient Name: Traci Morris Admit Date: 09/22/2024 Dear Janak Gomez DO, A review of the medical record indicates additional documentation may be needed. Please review below and update the documentation accordingly. Clinical Indicators: Height: 5ft 6in Weight: 43.8kg BMI: 15.6 Other Clinical Notes Supporting Significance of the BMI: Nursing notes Height and Weight: Underweight with BMI 15.6 If possible, please provide an associated diagnosis related to the abnormal BMI, such as: Underweight Cachexia Anorexia malnourished mild, moderate, severe Other (explain) Clinically unable to determine (explain) Thank you, Sadie Urbano, CCS, CDIS Use of terms such as suspected, likely, concern for, or probable (associated with a specific diagnosi s that is being evaluated, monitored, or treated as if it exists) are acceptable and can be coded in the inpatient se tting, when documented at the time of discharge. Please use your independent medical judgment in providing your response. THIS QUERY IS PART OF THE PERMANENT MEDICAL RECORD
[2024-09-23] MEDS: Omeprazole 40 MG CAPSULE.DR PO (08:42)
[2024-09-23] MEDS: Metoprolol Tartrate 50 MG TABLET PO ×2 (08:42→19:50)
[2024-09-23] MEDS: Sacubitril/Valsartan 24/26 1 TAB TABLET PO ×2 (08:42→19:50)
[2024-09-23] MEDS: Folic Acid 1 MG TABLET PO (08:42)
[2024-09-23] MEDS: Empagliflozin 10 MG TABLET PO (08:42)
[2024-09-23] MEDS: Amiodarone HCL 200 MG TABLET PO (08:42)
[2024-09-23] MEDS: Sertraline HCL 100 MG TABLET PO (08:42)
[2024-09-23] MEDS: metFORMIN HCl 500 MG TABLET PO ×2 (08:42→19:50)
[2024-09-23] MEDS: DULoxetine HCl 30 MG CAPSULE.DR PO ×2 (08:43→19:49)
--- NOTE | 2024-09-23 08:45 | P.CNGI_ITS ---
History of Present Illness Data of Consult Service Date: 09/23/24 Primary Care Provider: Unknown Physician HPI Reason for consult: anemia 74-year-old female with PMH significant for be AFib on Eliquis, HLD, HTN, history of CVA with residual hemiplegia, jck-cdmyzkj-erogjhjme type 2 diabetes, CKD 3, vascular dementia who I am seeing for anemia assessment patient had labs checked at [facility] and found to have low HGB at 7 g/dl. No overt signs of GI bleeding, received transfusion and HGB incremented appropriately to around 9 g/dl She had similar presentation 04/10 with anmeia in setting of CHF and pneumonia, again no overt GI bleeding at the time She is not orientated to time and place Review of Systems 2 Review of Systems: Constitutional : No Weight loss, No Fever, No Chills ENT/Mouth : No sore throat, No Rhinorrhea Eyes: No Swelling, No Redness Cardiovascular : No Chest Pain, No SOB, No Edema Respiratory : No Cough, No Sputum, No Wheezing Gastrointestinal : see HPI Genitourinary : NO Dysuria, No Urinary Frequency, No Hematuria, No Urgency Musculoskeletal : no joint pain, No Myalgias, No Joint Swelling Skin : No Skin Lesions, No rash Neuro : No Weakness, No Numbness, No Dizziness, No Headache Psych : No Anxiety/Panic, No Depression Heme/Lymph: No Bruising, No Lymphadenopathy Endocrine : No Polyuria, No Polydipsia All other systems reviewed and are negative. [facility] Past Medical History Medical History Paroxysmal atrial fibrillation Cardiomyopathy Acute CHF Sepsis Anemia Pneumonia Family History Pertinent family history: unable to recall Social History Social History Household Members: Unknown / Unable to assess Housing: Retirement Do you presently have visiting nurse or other home services: No Unable to assess alcohol history related to: Unable to respond Patient Tobacco Use Status: Former Tobacco user Tobacco use type: Cigarette e-Cigarette/Vaping Use: Never Used Second Hand Smoke Exposure: No Advance Directives Date on File: 04/11/24 service: No Meds Allergies Allergy/AdvReac Type Severity Reaction Status Date / Time tuberculin, purified protein Allergy Unknown UNK Verified 09/22/24 11:23 deriva [TB TEST] aspirin [ASA] AdvReac Unknown GI UPSET, Verified 09/22/24 11:23 stomach upset Active Medications: Current Medications Acetaminophen (Acetaminophen 325 Mg Tablet) 650 mg PO Q6H PRN PRN Reason: Pain, Mild 1-3,fever,headache Amiodarone HCl (Amiodarone Hcl 200 Mg Tablet) 200 mg PO DAILY [facility] Last Admin: 09/23/24 08:42 Dose: 200 mg Atorvastatin Calcium (Atorvastatin Calcium 80 Mg Tablet) 80 mg PO BEDTIME [facility] Calcium Carbonate (Calcium Carbonate 750 Mg Tab.Chew) 750 mg PO Q4H PRN PRN Reason: Heartburn Duloxetine HCl (Duloxetine Hcl 30 Mg Capsule.) 30 mg PO BID [facility] Last Admin: 09/23/24 08:43 Dose: 30 mg Empagliflozin (Empagliflozin 10 Mg Tablet) 10 mg PO DAILY [facility] Last Admin: 09/23/24 08:42 Dose: 10 mg Folic Acid (Folic Acid 1 Mg Tablet) 1 mg PO DAILY [facility] Last Admin: 09/23/24 08:42 Dose: 1 mg Furosemide (Furosemide 20 Mg Tablet) 20 mg PO DAILY [facility]; Protocol Gabapentin (Gabapentin 100 Mg Capsule) 100 mg PO BEDTIME [facility] Magnesium Hydroxide (Milk Of Magnesia 30 Ml Oral.Susp) 30 ml PO DAILY PRN PRN Reason: Constipation Melatonin (Melatonin 3 Mg Tablet) 6 mg PO BEDTIME PRN PRN Reason: Insomnia Metformin HCl (Metformin Hcl 500 Mg Tablet) 500 mg PO BID [facility] Last Admin: 09/23/24 08:42 Dose: 500 mg Metoprolol Tartrate (Metoprolol Tartrate 50 Mg Tablet) 50 mg PO BID [facility]; Protocol Last Admin: 09/23/24 08:42 Dose: 50 mg Mirtazapine (Mirtazapine 15 Mg Tablet) 15 mg PO BEDTIME [facility] Omeprazole (Omeprazole 40 Mg Capsule.) 40 mg PO DAILY [facility] Last Admin: 09/23/24 08:42 Dose: 40 mg Ondansetron HCl (Ondansetron Hcl 4 Mg/2 Ml Vial) 4 mg IVPUSH Q8H PRN PRN Reason: Nausea and Vomiting Potassium Chloride (Potassium Chloride Er 20 Meq Tab.Er.Prt) 40 meq PO TUFR [facility] Sacubitril/Valsartan (Sacubitril/Valsartan 1 Tab Tablet) 1 tab PO BID [facility]; Protocol Last Admin: 09/23/24 08:42 Dose: 1 tab Sertraline HCl (Sertraline Hcl 100 Mg Tablet) 100 mg PO DAILY [facility] Last Admin: 09/23/24 08:42 Dose: 100 mg Sodium Chloride (0.9 % Sodium Chloride Flush 3 Ml Syringe) 3 ml IVFLUSH QSHIFT [facility] Last Admin: 09/23/24 00:27 Dose: Not Given Home Medications ?Medication ?Instructions ?Recorded ?Confirmed ?Last Taken ?Type apixaban 5 mg tablet (Eliquis) 5 mg PO BID 03/26/24 09/22/24 03/25/24 19:00 History atorvastatin 80 mg tablet 80 mg PO BEDTIME 03/26/24 09/22/24 Unknown History bisacodyl 10 mg rectal suppository 10 mg [place] DAILY PRN Constipation 03/26/24 09/22/24 Unknown History cholecalciferol (vitamin D3) 25 25 mcg PO DAILY 03/26/24 09/22/24 Unknown History mcg (1,000 unit) tablet clotrimazole 1 % topical cream 1 appl topical DAILY PRN Rash 03/26/24 09/22/24 Unknown History ferrous sulfate 325 mg (65 mg 325 mg PO DAILY 03/26/24 09/22/24 Unknown History iron) tablet folic acid 1 mg tablet 1 mg PO DAILY 03/26/24 09/22/24 Unknown History gabapentin 100 mg capsule 100 mg PO BEDTIME 03/26/24 09/22/24 Unknown History loperamide 2 mg capsule 2 mg PO Q6H PRN Loose Stool 03/26/24 09/22/24 Unknown History melatonin 5 mg tablet 10 mg PO BEDTIME 03/26/24 09/22/24 Unknown History metformin 500 mg tablet 500 mg PO BID 03/26/24 09/22/24 Unknown History omega 9-yir-mxk-fish oil 1,000 mg 1 cap PO DAILY 03/26/24 09/22/24 Unknown History (120 mg-180 mg) capsule (Fish Oil) sennosides 8.6 mg tablet (senna) 8.6 mg PO DAILY 03/26/24 09/22/24 Unknown History sertraline 50 mg tablet 100 mg PO DAILY 03/26/24 09/22/24 Unknown History sodium phosphates 19 gram-7 118 ml [place] DAILY PRN Constipation 03/26/24 09/22/24 Unknown History gram/118 mL enema (Fleet Enema) acetaminophen 325 mg tablet 650 mg PO Q6H PRN Fever Or Pain 04/22/24 09/22/24 Unknown History mirtazapine 15 mg tablet (Remeron) 15 mg PO BEDTIME 04/22/24 09/22/24 Unknown History ondansetron HCl 4 mg tablet 4 mg PO TIDWM 04/22/24 09/22/24 Unknown History amiodarone 200 mg tablet 200 mg PO DAILY 09/22/24 09/22/24 Unknown History duloxetine 30 mg capsule,delayed 30 mg PO BID 09/22/24 09/22/24 Unknown History release omeprazole 40 mg capsule,delayed 40 mg PO DAILY 09/22/24 09/22/24 Unknown History release potassium chloride 20 mEq 40 meq PO TUFR 09/22/24 09/22/24 Unknown History tablet,extended release(part/cryst) Physical Exam 2 Vital Signs: Vital Signs: .exLast Vital Signs Temp 97.4 F 09/23/24 07:48 Pulse 70 09/23/24 07:48 Resp 16 09/23/24 07:48 BP 158/58 H 09/23/24 07:48 Pulse Ox 99 09/23/24 07:48 O2 Del Method Room Air 09/23/24 07:48 BMI result Body Mass Index 15.6 EXAM: GENERAL: The patient is frail VITAL SIGNS:see workflow HEENT: Nonicteric sclerae, PERRLA, EOMI. Oropharynx clear. Moist mucous membranes. Conjunctivae appear well perfused. No thyroid mass. CHEST: Chest wall is nontender. HEART: Regular rate and rhythm with ESM over precordium LUNGS: Clear to auscultation bilaterally. ABDOMEN: Soft, positive bowel sounds, nontender, no organomegaly.no flank tenderness SKIN: No rash, no excessive bruising, petechiae, or purpura. NEUROLOGIC: Cranial nerves II-XII intact without motor/sensory deficit. Psych: confused, pleasant, Results Labs 09/23/24 06:20 09/23/24 06:20 Labs: Short CBC 09/22/24 09/22/24 09/23/24 Range/Units 11:29 15:28 06:20 WBC 7.7 7.9 6.4 (4.8-10.8) X10*3/uL Hgb 7.4 L 6.9 L* 8.7 L D (12.0-16.0) g/dl Hct 23.6 L 22.2 L 26.4 L (37.0-47.0) % Plt Count 515 H 508 H 455 H (160-400) X10*3/uL BMP 09/22/24 09/23/24 11:59 06:20 Sodium 139 139 Potassium 4.1 3.0 L D Chloride 107 105 Carbon Dioxide 25 24 BUN 14 12 Creatinine 0.81 0.79 Calcium 9.4 D 8.9 Liver Function 09/22/24 09/23/24 Range/Units 11:59 06:20 Total Bilirubin 0.4 0.6 (0.0-1.0) mg/dL AST 41 H 44 H (5-31) U/L ALT 31 29 (0-31) U/L Alkaline Phosphatase 58 54 (39-117) U/L Albumin 3.5 3.1 L (3.5-5.0) g/dL Assessment and Plan (1) Anemia: Qualifiers: Anemia type: other cause Other causes of anemia: other cause, not classified Qualified Code(s): D64.89 - Other specified anemias Status: Acute Plan 1/ Acute on chronic anemia, on eliquis, has moderate severe dementia. No overt bleeding, maybe mucosal, from AVM etc PLAN: 1/ Discussed with Dr Gomez, he plans to d/c eliquis and use only aspirin if cardiology agrees. Given fraility and issues with prepping her we will hold off on EGD, colo right now. We can revist this depending on clinical course. I would keep her on PPI. Procedures Date of Service Date of Service: 09/23/24
[2024-09-23] MEDS: Potassium Chloride ER 20 MEQ TAB.ER.PRT 40 MEQ PO (08:46)
[2024-09-23] MEDS: 0.9 % Sodium Chloride Flush 3 ML SYRINGE IVFLUSH (08:47)
--- NOTE | 2024-09-23 08:55 | MHC.CM.PN ---
CM spoke with Legal Guardian/Jair @ [phone] and addressed IMM with him; original will be mailed certified letter to Guardian and a copy has been placed on the chart. Patient is a LTC Resident and [facility] bed hold @ [facility] and returning there is the goal. GEOFF has initiated and will follow for dc planning. Patient will require BLS transport at time of dc.
[2024-09-23 11:27] LABS: Glucose, Whole Blood 132 mg/dL (60-115)
[2024-09-23 11:29] VITALS: BMI 17.7
--- NOTE | 2024-09-23 11:35 | MHC.CLN ---
CONSULT PT IS MODERATELY MALNOURISHED PT WITH MILDLY DEPLETED SUBCUTANEOUS FAT AND MUSCLE MASS WITH BMI 17 AND 24% SIGNIFICANT WT LOSS X6 MONTHS UNABLE TO OBTAIN HX FROM PT R/T DEMENTIA CLEAR LIQUID DIET IN PLACE RECOMMEND ADDING ENSURE CLEAR TID TO INCREASE KCALS SUPP TO PROVIDE 720KCALS, 24G PROTEIN MONITOR PO INTAKE ADN ENCOURAGE SUPPLEMENT SEE ALSO FULL CLINICAL NUTRITION ASSESSMENT
[2024-09-23 15:02] VITALS: BP 147/44; PULSE 63; RESP 16; TEMP 36.7; O2SAT 100
--- NOTE | 2024-09-23 15:42 | P.PNIM_ITS ---
Subjective Subjective Date of Service: 09/23/24 Interval History: Remains confused but stable good response to transfusion Review of Systems unable to obtain secondary to dementia Physical Exam 2 Vital Signs: Vital Signs: Last Vital Signs Temp 98.0 F 09/23/24 15:02 Pulse 63 09/23/24 15:02 Resp 16 09/23/24 15:02 BP 147/44 H 09/23/24 15:02 Pulse Ox 100 09/23/24 15:02 O2 Del Method Room Air 09/23/24 15:02 BMI result Body Mass Index 17.7 Const: Other: awake alert no acute distress Resp: Other: clear to auscultation bilaterally no rales rhonchi or wheezes Cardio: Other: no S4; positive S1-S2; no S3 murmurs rubs or gallops GI: Other: soft nontender nondistended normoactive bowel sounds Extrem: Other: no edema bilaterally Objective Data Active Medications Acetaminophen (Acetaminophen 325 Mg Tablet) 650 mg PO Q6H PRN PRN Reason: Pain, Mild 1-3,fever,headache Amiodarone HCl (Amiodarone Hcl 200 Mg Tablet) 200 mg PO DAILY [facility] Last Admin: 09/23/24 08:42 Dose: 200 mg Documented By: SOFIYA Atorvastatin Calcium (Atorvastatin Calcium 80 Mg Tablet) 80 mg PO BEDTIME [facility] Calcium Carbonate (Calcium Carbonate 750 Mg Tab.Chew) 750 mg PO Q4H PRN PRN Reason: Heartburn Duloxetine HCl (Duloxetine Hcl 30 Mg Capsule.Dr) 30 mg PO BID [facility] Last Admin: 09/23/24 08:43 Dose: 30 mg Documented By: SOFIYA Empagliflozin (Empagliflozin 10 Mg Tablet) 10 mg PO DAILY [facility] Last Admin: 09/23/24 08:42 Dose: 10 mg Documented By: SOFIYA Folic Acid (Folic Acid 1 Mg Tablet) 1 mg PO DAILY [facility] Last Admin: 09/23/24 08:42 Dose: 1 mg Documented By: SOFIYA Furosemide (Furosemide 20 Mg Tablet) 20 mg PO DAILY [facility]; Protocol Last Admin: 09/23/24 08:47 Dose: Not Given Documented By: SOFIYA Non-Admin Reason: low potassium Gabapentin (Gabapentin 100 Mg Capsule) 100 mg PO BEDTIME [facility] Magnesium Hydroxide (Milk Of Magnesia 30 Ml Oral.Susp) 30 ml PO DAILY PRN PRN Reason: Constipation Melatonin (Melatonin 3 Mg Tablet) 6 mg PO BEDTIME PRN PRN Reason: Insomnia Metformin HCl (Metformin Hcl 500 Mg Tablet) 500 mg PO BID [facility] Last Admin: 09/23/24 08:42 Dose: 500 mg Documented By: SOFIYA Metoprolol Tartrate (Metoprolol Tartrate 50 Mg Tablet) 50 mg PO BID [facility]; Protocol Last Admin: 09/23/24 08:42 Dose: 50 mg Documented By: SOFIYA Mirtazapine (Mirtazapine 15 Mg Tablet) 15 mg PO BEDTIME [facility] Omeprazole (Omeprazole 40 Mg Capsule.Dr) 40 mg PO DAILY [facility] Last Admin: 09/23/24 08:42 Dose: 40 mg Documented By: SOFIYA Ondansetron HCl (Ondansetron Hcl 4 Mg/2 Ml Vial) 4 mg IVPUSH Q8H PRN PRN Reason: Nausea and Vomiting Potassium Chloride (Potassium Chloride Er 20 Meq Tab.Er.Prt) 40 meq PO TUFR [facility] Last Admin: 09/23/24 08:46 Dose: 40 meq Documented By: SOFIYA Sacubitril/Valsartan (Sacubitril/Valsartan 1 Tab Tablet) 1 tab PO BID [facility]; Protocol Last Admin: 09/23/24 08:42 Dose: 1 tab Documented By: SOFIYA Sertraline HCl (Sertraline Hcl 100 Mg Tablet) 100 mg PO DAILY [facility] Last Admin: 09/23/24 08:42 Dose: 100 mg Documented By: SOFIYA Sodium Chloride (0.9 % Sodium Chloride Flush 3 Ml Syringe) 3 ml IVFLUSH QSHIFT [facility] Last Admin: 09/23/24 08:47 Dose: 3 ml Documented By: SOFIYA Labs 09/23/24 06:20 09/23/24 06:20 Labs: Laboratory Results - last 24 hr 09/22/24 09/22/24 09/22/24 11:59 15:28 20:03 MCV 87.1 MCH 27.1 MCHC 31.1 RDW 16.8 H Plt Count 508 H MPV 10.3 Immature Gran % (Auto) 0.3 Neut % (Auto) 64.7 Lymph % (Auto) 21.1 [place] % (Auto) 12.0 H Eos % (Auto) 0.8 Baso % (Auto) 1.1 Lymph # (Auto) 1.7 [place] # (Auto) 0.9 Eos # (Auto) 0.1 Baso # (Auto) 0.1 Abs Immat Gran (auto) 0.02 Absolute Neuts (auto) 5.1 Absolute Nucleated RBC 0.000 Nucleated RBC % (auto) 0.0 Anion Gap Estim Creat Clear Calc Estimated GFR POC Glucose 90 Random Glucose Calcium Total Bilirubin AST ALT Alkaline Phosphatase Total Protein Albumin Blood Type A Positive Antibody Screen NEGATIVE Crossmatch See Detail 09/23/24 09/23/24 09/23/24 06:20 07:42 11:22 MCV 86.3 MCH 28.4 MCHC 33.0 RDW 16.0 Plt Count 455 H MPV 10.6 Immature Gran % (Auto) 0.2 Neut % (Auto) 53.4 Lymph % (Auto) 27.6 [place] % (Auto) 14.4 H Eos % (Auto) 3.0 Baso % (Auto) 1.4 Lymph # (Auto) 1.8 [place] # (Auto) 0.9 Eos # (Auto) 0.2 Baso # (Auto) 0.1 Abs Immat Gran (auto) 0.01 Absolute Neuts (auto) 3.4 Absolute Nucleated RBC 0.000 Nucleated RBC % (auto) 0.0 Anion Gap 13 Estim Creat Clear Calc 43.8 Estimated GFR > 60 POC Glucose 86 132 H Random Glucose 90 Calcium 8.9 Total Bilirubin 0.6 AST 44 H ALT 29 Alkaline Phosphatase 54 Total Protein 6.2 L Albumin 3.1 L Blood Type Antibody Screen Crossmatch Assessment and Plan (1) GI bleed: Status: Acute Plan 74-year-old female with PMH significant for be AFib on Eliquis, HLD, HTN, history of CVA with residual hemiplegia, obz-lizunga-aldltgjpk type 2 diabetes, CKD 3, vascular dementia came in from assisted for evaluation of low hemoglobin at the assisted 6.1 and the patient looks pale, no obvious external bleed or hemorrhage,. patient on Eliquis for paroxysmal AFib 1. LGI bleed - no further bleeding. Discussed with guardian. Agree with GI; we will DC Eliquis in favor of aspirin with PPI. Risk greater than benefit to continue Eliquis - transfuse 1 unit packed red cells... Good response - follow CBC in a.m. - GI consult appreciated 2. Anemia - as above; aspirin and PPI - follow CBC 3. Paroxysmal atrial fibrillation - NSR by EKG - hold Eliquis at this time 4.HFr EF - stable and well compensated - continue outpatient therapies Full Code Pneumatics Requires 2 midnights going forward for transfusion secondary to lower GI bleed and specialty consultation. This can not be achieved a lesser acute setting Quality Stroke Does the patient have a stroke diagnosis?: No VTE Prior VTE?: No VTE Risk Level:: Medical - moderate - high VTE Device Contraindication: N/A - Device Ordered VTE Drug Contraindication: Treatment Not Indicated
[2024-09-23 15:51] LABS: Glucose, Whole Blood 103 mg/dL (60-115)
[2024-09-23 19:44] VITALS: BP 150/48; PULSE 64; RESP 18; TEMP 36.1; O2SAT 100
[2024-09-23] MEDS: Gabapentin 100 MG CAPSULE PO (19:49)
[2024-09-23] MEDS: Mirtazapine 15 MG TABLET PO (19:50)
[2024-09-23] MEDS: Atorvastatin Calcium 80 MG TABLET PO (19:50)
[2024-09-24 00:34] VITALS: RESP 18
[2024-09-24 03:05] VITALS: BP 134/56; PULSE 57; RESP 18; TEMP 36.6; O2SAT 100
[2024-09-24 07:01] VITALS: BP 147/62; PULSE 59; RESP 17; TEMP 36.4; O2SAT 99
[2024-09-24] MEDS: Sacubitril/Valsartan 24/26 1 TAB TABLET PO (08:57)
[2024-09-24] MEDS: Folic Acid 1 MG TABLET PO (08:58)
[2024-09-24] MEDS: metFORMIN HCl 500 MG TABLET PO (08:58)
[2024-09-24] MEDS: Furosemide 20 MG TABLET PO (08:58)
[2024-09-24] MEDS: Metoprolol Tartrate 50 MG TABLET PO (08:58)
[2024-09-24] MEDS: Sertraline HCL 100 MG TABLET PO (08:58)
[2024-09-24] MEDS: DULoxetine HCl 30 MG CAPSULE.DR PO (08:58)
[2024-09-24] MEDS: Empagliflozin 10 MG TABLET PO (08:58)
[2024-09-24] MEDS: Amiodarone HCL 200 MG TABLET PO (08:59)
[2024-09-24] MEDS: 0.9 % Sodium Chloride Flush 3 ML SYRINGE IVFLUSH (08:59)
[2024-09-24] MEDS: Omeprazole 40 MG CAPSULE.DR PO (08:59)
[2024-09-24 11:11] LABS: MANUAL DIFF FLAG NO
[2024-09-24 11:15] LABS: Basophils Absolute Auto 0.1 X10*3/uL (0.0-0.2); Basophils Percent Auto 1.4 % (0-2); Eosinophils Absolute Auto 0.2 X10*3/uL (0.0-0.4); Eosinophils Percent Auto 3.1 % (0-4); Hematocrit 30.4 % (37.0-47.0); Hemoglobin 9.6 g/dl (12.0-16.0); Imm Gran Abs Auto 0.01 X10*3/uL (0.00-0.03); Imm Gran Pct Auto 0.2 % (0.0-0.4); Lymphocytes Absolute Auto 1.3 X10*3/uL (1.2-4.9); Lymphocytes Percent Auto 22.1 % (20-40); Mean Corpuscular HGB Conc 31.6 g/dl (31.0-35.0); Mean Corpuscular Hemoglobin 28.4 pg (27.0-33.0); Mean Corpuscular Volume 89.9 fL (80.0-98.0); Mean Platelet Volume 10.5 fL (9.4-12.3); Monocytes Absolute Auto 0.6 X10*3/uL (0.1-1.2); Neutrophils Absolute Auto 3.7 x10*3/uL (2.0-8.3); Neutrophils Percent Auto 63.2 % (45-73); Platelet Count 502 X10*3/uL (160-400); Red Blood Count 3.38 X10*6/uL (4.20-5.50); Red Cell Distribution Width 16.6 % (11.0-16.0); White Blood Count 5.8 X10*3/uL (4.8-10.8)
--- NOTE | 2024-09-24 11:39 | MHC.CM.PN ---
Pt is medically cleared for discharge back to LTC at [facility] today via BLS/Jesica, pts guardian Jair was called by this CM to notify, voicemail left.
--- NOTE | 2024-09-24 12:28 | PM.DS ---
DS: Providers Provider Date of Service: 09/24/24 Date of admission: 09/22/24 16:18 Date of discharge: 09/24/24 Primary care physician: Unknown Physician Consults: 09/23/24 07:49 Consult to Gastroenterology Routine Consulting Provider: David Miles Reason for consultation: LGIB Has provider been notified: Yes DS: Diagnosis Discharge Diagnosis (1) GI bleed: Status: Acute DS: Summary Hospital Course Hospital Course: 74-year-old female with PMH significant for be AFib on Eliquis, HLD, HTN, history of CVA with residual hemiplegia, mnx-puquguy-lqkaqskkx type 2 diabetes, CKD 3, vascular dementia came in from senior care for evaluation of low hemoglobin at the senior care 6.1 and the patient looks pale, no obvious external bleed or hemorrhage, patient currently has no complaint, no CP, no abdominal pain, no blood in the stool. Repeat hemoglobin in ER 6.9 Hospital course Admitted to telemetry where monitor failed to demonstrate any acute dysrhythmias. She was transfused 2 units of blood with good response. Seen in consultation by GI who recommended DC Eliquis in favor of aspirin and continuing omeprazole. This was discussed with patient's guardian who agrees with changes. Patient will be discharged back to half-way facility to resume all other therapies as previously Time Attestation Discharge Coordination Time (in mins): 35 Quality: Safe Use of Opioids Does Pt have an Active Cancer Diagnosis on the Problem List?: No Quality: Stroke Does the patient have a stroke diagnosis?: No Physical Exam Vital Signs: Vital Signs: Last Vital Signs Temp 97.6 F 09/24/24 07:01 Pulse 59 09/24/24 07:01 Resp 17 09/24/24 07:01 BP 147/62 H 09/24/24 07:01 Pulse Ox 99 09/24/24 07:01 O2 Del Method Room Air 09/24/24 07:01 BMI result Body Mass Index 17.7 Const: Other: awake alert no acute distress Resp: Other: clear to auscultation bilaterally no rales rhonchi or wheezes Cardio: Other: no S4; positive S1-S2; no S3 murmurs rubs or gallops GI: Other: soft nontender nondistended normoactive bowel sounds Extrem: Other: no edema bilaterally DS: Data Data Completed and Pending Completed studies during hospitalization [Text1]: Procedures Transfusion of Nonautologous Red Blood Cells into Peripheral Vein, Percutaneous Approach (03/26/24) Labs on day of discharge: Laboratory Results - last 24 hr 09/23/24 09/24/24 15:37 10:45 WBC 5.8 RBC 3.38 L Hgb 9.6 L Hct 30.4 L MCV 89.9 MCH 28.4 MCHC 31.6 RDW 16.6 H Plt Count 502 H MPV 10.5 Immature Gran % (Auto) 0.2 Neut % (Auto) 63.2 Lymph % (Auto) 22.1 [place] % (Auto) 10.0 Eos % (Auto) 3.1 Baso % (Auto) 1.4 Lymph # (Auto) 1.3 [place] # (Auto) 0.6 Eos # (Auto) 0.2 Baso # (Auto) 0.1 Abs Immat Gran (auto) 0.01 Absolute Neuts (auto) 3.7 Absolute Nucleated RBC 0.000 Nucleated RBC % (auto) 0.0 POC Glucose 103 Discharge Plan Discharge Anticipated Discharge Date/Time: 09/24/24 12:24 Patient Disposition: Xfer [facility] Discharge Diagnosis: LGI bleed Referrals: Trey Cueto [place] [Outside] - 1 Week Physician,Jonelle J [Primary Care Provider] - 1 Week Discharge Medications: New aspirin 81 mg tablet,delayed release (DR/EC) 81 mg PO DAILY Qty: 30 0RF Continued duloxetine 30 mg capsule,delayed release(DR/EC) 30 mg PO BID omeprazole 40 mg capsule,delayed release(DR/EC) 40 mg PO DAILY potassium chloride 20 mEq tablet,ER particles/crystals 40 meq PO TUFR amiodarone 200 mg tablet 200 mg PO DAILY metformin 500 mg tablet 500 mg PO BID atorvastatin 80 mg tablet 80 mg PO BEDTIME sennosides [senna] 8.6 mg Tablet 8.6 mg PO DAILY loperamide 2 mg capsule 2 mg PO Q6H PRN (Reason: Loose Stool) bisacodyl 10 mg Suppository 10 mg [place] DAILY PRN (Reason: Constipation) ferrous sulfate 325 mg (65 mg iron) Tablet 325 mg PO DAILY Fleet Enema 19-7 gram/118 mL Enema 118 ml [place] DAILY PRN (Reason: Constipation) folic acid 1 mg Tablet 1 mg PO DAILY gabapentin 100 mg capsule 100 mg PO BEDTIME clotrimazole 1 % Cream 1 appl TOPICAL DAILY PRN (Reason: Rash) Rx Instructions: apply to groin sertraline 50 mg tablet 100 mg PO DAILY cholecalciferol (vitamin D3) 25 mcg (1,000 unit) Tablet 25 mcg PO DAILY melatonin 5 mg Tablet 10 mg PO BEDTIME omega 0-trf-jrv-fish oil [Fish Oil] 1,000 mg (120 mg-180 mg) Capsule 1 cap PO DAILY metoprolol tartrate 50 mg Tablet 50 mg PO BID Qty: 60 0RF Protocol: Hold for SBP/HR < HOLD for SBP < : 90 HOLD for HR < : 60 Jardiance 10 mg Tablet 10 mg PO DAILY Qty: 30 0RF acetaminophen 325 mg Tablet 650 mg PO Q6H PRN (Reason: Fever Or Pain) ondansetron HCl 4 mg Tablet 4 mg PO TIDWM mirtazapine [Remeron] 15 mg Tablet 15 mg PO BEDTIME furosemide 20 mg Tablet 20 mg PO DAILY Qty: 60 0RF Protocol: Hold for SBP< HOLD for SBP < : 90 Entresto 24-26 mg Tablet 1 tab PO BID Qty: 60 0RF Protocol: Hold for SBP< HOLD for SBP < : 90 Discontinued Eliquis 5 mg tablet 5 mg PO BID Discharge Orders: Discharge Order (Routine); Ordered 09/24/24 Ordered By: Janak Gomez Diet: Advance to usual diet Activity on Discharge: As tolerated Stand Alone Forms: Patient Portal Discharge page Print Language: Irish Care Plan Goals: Eliquis has been DC. Aspirin 81 mg pen been added in place of Eliquis Health Concerns: Continue all other medicines as listed a transfer summary Plan of Treatment: Resume plan of care as previously at SNF Assessment: See discharge summary
[2024-09-24 15:18] VITALS: BP 117/65; PULSE 64; RESP 18; TEMP 36.2; O2SAT 98
== END 2024-09-24 17:23 | DRG 378 ==
LOC: HO.ED 16:10 → HO.EDOVER 16:24 → HO.IMC 17:29
PROVIDERS: Admitting Provider Student in an Organized Health Care Education/Training Program; Emergency Provider Emergency Medicine; PCP Family Medicine; Visit Provider Hospitalist
DX: K92.2 Gastrointestinal hemorrhage, unspecified (principal); I13.0 Hypertensive heart and chronic kidney disease with heart failure and stage 1 through stage 4 chronic kidney disease, or unspecified chronic kidney disease; R64 Cachexia; Z68.1 Body mass index [BMI] 19.9 or less, adult; I50.22 Chronic systolic (congestive) heart failure; I48.0 Paroxysmal atrial fibrillation; R53.81 Other malaise; F01.C0 Vascular dementia, severe, without behavioral disturbance, psychotic disturbance, mood disturbance, and anxiety; N18.30 Chronic kidney disease, stage 3 unspecified; E11.22 Type 2 diabetes mellitus with diabetic chronic kidney disease; D63.1 Anemia in chronic kidney disease; Z87.891 Personal history of nicotine dependence; Z79.01 Long term (current) use of anticoagulants; Z79.899 Other long term (current) drug therapy
CPT/HCPCS: 36415; 80053; 82272; 82947; 83690; 83880; 84484; 85025; 85610; 86850; 86900; 86901; 86923; 93005; 99285; P9016

== ENCOUNTER → 2024-09-22 11:37 | Outpatient (BNV) | payer MEDICARE, MEDICAID, SELFPAY | PROVIDERS: Admitting Provider Student in an Organized Health Care Education/Training Program; Emergency Provider Emergency Medicine; Visit Provider Internal Medicine | DX: R94.31 Abnormal electrocardiogram [ECG] [EKG] (principal); I45.10 Unspecified right bundle-branch block | CPT/HCPCS: 93010 ==

== ENCOUNTER → 2024-09-22 16:18 | Outpatient (BNV) | payer MEDICARE, MEDICAID, SELFPAY | PROVIDERS: Admitting Provider Student in an Organized Health Care Education/Training Program; Emergency Provider Emergency Medicine; Visit Provider Internal Medicine Gastroenterology | DX: D64.89 Other specified anemias (principal) | CPT/HCPCS: 99223 ==

== ENCOUNTER → 2024-09-22 16:18 | Outpatient (BNV) | payer MEDICARE, MEDICAID, SELFPAY | PROVIDERS: Admitting Provider Student in an Organized Health Care Education/Training Program; Emergency Provider Emergency Medicine; Visit Provider Hospitalist | DX: K92.2 Gastrointestinal hemorrhage, unspecified (principal) | CPT/HCPCS: 99223; 99232; 99239 ==

== ENCOUNTER 2024-10-18 08:20 | Outpatient (AMB) | payer MEDICARE, MEDICAID, SELFPAY ==
--- OUTSIDE RECORDS SUMMARY | 2024-10-18 08:31 | XMS_ITS | Encounter Summary ---
Author Organization [facility] Address [id number] [place] [id number] Care Team Providers Care Sand Sifter Name Role Phone Damien Kay MD Primary Care Provider [phone] Encounter Details Date Type Department Care Team (Late st Contact Info) Description 08/02/2024 Lab Requisition [facility] - Main Lab [address] [facility] [place] [address] Damien Kay MD [address] [facility] [address] [place], [phone] Heart failure, unspecified (CMS/HCC V24, CMS/HCC [...] natriuretic peptide (08/03/2024 8:35 AM EDT) Pathologist [facility] BNP 457(H) <=100 pcg/mL LAB CHEMISTRY METHOD 08/03/2024 11:31 AM EDT [facility] Blood Venous blood specimen / Unknown Venipuncture / Unknown 08/03/2024 8:35 AM EDT 08/03/2024 10:45 AM EDT us Damien Kay MD LAB BLOOD ORDERABLES Final Resul t [facility] [address] [place] [address], [place] [phone] * (ABNORMAL) Basic metabolic panel (08/03/2024 8:35 AM EDT) [facility] Sodium 144 133 - 145 mmol/L LAB [...] LAB CHEMISTRY METHOD 08/03/2024 12:30 PM EDT [facility] eGFR 82 >=60 mL/min/1. 73m2 LAB CHEMISTRY METHOD 08/03/2024 12:30 PM EDT [facility] Comment:Calculation based on the??Chronic Kidney Disease Epidemiology Collaboration (CKD-EPI) equation refit??without adjustment for race. BUN/Creatinine Ratio 13.0 LAB CHEMISTRY METHOD 08/03/2024 12:30 PM EDT [facility] Calcium 8.4(L) 8.5 - 10.5 mg/dL LAB CHEMISTRY METHOD 08/03/2024 12:30 PM EDT [facility] Blood Venous blood specimen / Unknown Venipuncture / Unknown 08/03/2024 8:35 AM EDT 08/03/2024 10:45 AM EDT us Damien Kay MD LAB BLOOD ORDERABLES Final Resul t [facility] [address] [place] [address], * (ABNORMAL) Complete blood count (08/03/2024 8:35 AM EDT) WBC 6.5 4.8 - 10.8 K/mcL LAB HEMETOLOGY METHOD 08/03/2024 11:11 AM EDT [facility] RBC 2.70(L) 3.80 - 4.80 M/mcL LAB HEMETOLOGY METHOD 08/03/2024 11:11 AM EDT [facility] Hemoglobin 8.4(L) 11.5 - 16.0 g/dL LAB HEMETOLOGY METHOD 08/03/2024 11:11 AM [facility] Hematocrit 26.3(L) 35.0 - 47.0 % LAB HEMETOLOGY METHOD 08/03/2024 11:11 AM EDT [facility] MCV 96.3 79.0 - 98.0 FL LAB HEMETOLOGY METHOD 08/03/2024 11:11 AM EDT [facility] MCH 30.8 27.0 - 32.0 pcg LAB HEMETOLOGY METHOD 08/03/2024 11:11 AM EDT [facility] MCHC 31.9(L) 32.0 - 37.0 g/dL LAB HEMETOLOGY METHOD 08/03/2024 11:11 AM EDT [facility] RDW 16.5(H) 11.0 - 15.0 % LAB HEMETOLOGY METHOD 08/03/2024 11:11 AM EDT [facility] Platelets 472(H) 130 - 400 K/mcL LAB HEMETOLOGY METHOD 08/03/2024 11:11 AM EDT [facility] MPV 10.9 7.0 - 11.0 FL LAB HEMETOLOGY METHOD 08/03/2024 11:11 AM EDT [facility] NRBC 0.0 <1.0 % LAB HEMETOLOGY METHOD 08/03/2024 11:11 AM EDT [facility] NRBC Absolute 0.00 <0.10 K/mcL LAB HEMETOLOGY METHOD 08/03/2024 11:11 AM T [facility] Blood Venous blood specimen / Unknown Venipuncture / Unknown 08/03/2024 8:35 AM EDT 08/03/2024 10:45 AM EDT us Damien Kay MD LAB BLOOD ORDERABLES Final Resul t [facility] [address] [place] [address], documented in this encounter Visit Diagnoses Diagnosis Heart failure, unspecified (CMS/HCC V24, CMS/HCC V28) Heart failure, unspecified Sepsis, unspecified organism (CMS/HCC V24, CMS/HCC V28) Hyperlipidemia, unspecified documented in this encounter Care Teams Sand Sifter Relationship Specialty Start Date End Date Damien Kay MD [address] [place] [address], [phone] PCP - General Family Medicine 07/05/24 documented as of this encounter
[2024-10-18 08:36] VITALS: BP 120/52
--- NOTE | 2024-10-18 08:36 | A.OFFVIS_ITS ---
Vital Signs 10/18/24 08:36 Height 5 ft 2 in BP 120/52 L Blood Pressure Location Lt brachial Position Sitting Intake Visit Reasons: overdue f/up pt on stretcher Transition Assistant Required: No Accounting Manager Assistant Controller: Accounting Manager Assistant Controller Present Allergies tuberculin, purified protein deriva [TB TEST] Allergy (Unknown, Verified 10/18/24 08:41) UNK aspirin [ASA] Adverse Reaction (Unknown, Verified 10/18/24 08:41) GI UPSET, stomach upset Medication List - Last Reconciled 10/18/24 by MELLISA Wiggins acetaminophen 650 mg PO Q6H PRN amiodarone 200 mg PO DAILY aspirin 81 mg PO DAILY atorvastatin 80 mg PO BEDTIME bisacodyl 10 mg [place] DAILY PRN cholecalciferol (vitamin D3) 25 mcg PO DAILY clotrimazole 1% 1 appl topical DAILY PRN duloxetine 30 mg PO BID empagliflozin (Jardiance) 10 mg PO DAILY ferrous sulfate 325 mg PO DAILY folic acid 1 mg PO DAILY furosemide 20 mg See Protocol PO DAILY gabapentin 100 mg PO BEDTIME loperamide 2 mg PO Q6H PRN melatonin 10 mg PO BEDTIME metformin 500 mg PO BID metoprolol tartrate 50 mg PO BID mirtazapine (Remeron) 15 mg PO BEDTIME omega 2-iwv-sfd-fish oil 1,000 (120-180) mg (Fish Oil) 1 cap PO DAILY omeprazole 40 mg PO DAILY ondansetron HCl 4 mg PO TIDWM potassium chloride ER 40 mEq PO TUFR sacubitril-valsartan 24-26 mg (Entresto) 1 tab See Protocol PO BID sennosides (senna) 8.6 mg PO DAILY sertraline 100 mg PO DAILY sodium phosphates 19-7 gram/118 mL (Fleet Enema) 118 mL [place] DAILY PRN HPI HPI overdue f/up pt on stretcher: Details: Traci is a 74-year-old female with past medical history of dementia, h yperlipidemia, hypertension, diabetes, CKD, CVA with right-sided weakness who was recently admitted to [facility] with anemia, hemoglobin 6.1. She received 2 units of pack cells. No bleeding source was identified. She was seen by GI who recommended holding off on EGD or colonoscopy at that time, holding Eliquis and starting aspirin. She now presents for follow-up. Today she presents for this visit on an EMS transport stretcher from her [facility] facility. Patient is alert and appropriate during our visit. She has no physical complaints at present. She denies any recent chest discomfort. No shortness of breath, PND, orthopnea or edema. No lightheadedness, heart palpitations. She has no known bleeding issues. She takes her meds as given to her. She is mostly sedentary and does not ambulate. [facility] Medical History Anemia Paroxysmal atrial fibrillation Cardiomyopathy Acute CHF Sepsis Anemia Pneumonia Social History Household Members: Unknown / Unable to assess Housing: [facility] Do you presently have visiting nurse or other home services: No Unable to assess alcohol history related to: Unable to respond Patient Tobacco Use Status: Former Tobacco user Tobacco use type: Cigarette e-Cigarette/Vaping Use: Never Used Second Hand Smoke Exposure: No Advance Directives Date on File: 04/11/24 service: No Review of Systems Const All systems reviewed & are unremarkable except as noted in HPI and below ENT Denies dizziness Card Denies chest pain, Denies chest pain at rest, Denies chest pain with activity, Denies rapid heart rate, Denies lightheadedness, Denies dyspnea, Denies dyspnea on exertion and Denies orthopnea Resp Denies cough, Denies dyspnea and Denies dyspnea on exertion GI Denies hematochezia Musc Reports abnormal gait, Reports limited range of motion, Denies muscle cramps, Reports muscle weakness, Denies radiating pain into limb and Denies stiffness Neuro Reports abnormal gait and Denies dizziness Physical Exam Vital Signs: Last Vital Signs BP 120/52 L 10/18/24 08:36 Const Other: laying on EMS transport stretcher General: cooperative, comfortable and no acute distress Orientation/consciousness: patient oriented x3 Neck Neck: Yes normal visual inspection Resp Effort & Inspection: normal respiratory effort Auscultation: clear to auscultation bilaterally, no rales, no rhonchi and no wheezes Cardio Jugular venous distension: no JVD Rate: regular rate Rhythm: regular rhythm Heart sounds: S1 normal heart sound present, S2 normal heart sound present, no murmurs and no rubs Neuro General: patient oriented x3 Extrem General: Yes normal to inspection Psych Appearance: grossly normal Mental Status: mental status grossly normal Speech and movement: Normal speech and movement present Office Procedures EKG Details: Today, read by me, ectopic atrial rhythm, left axis deviation, nonspecific ST abnormality, rate 59, QTC 481 milliseconds [id number], Complete Assessment & Plan Assessment & Plan (1) Chronic blood loss anemia: Code(s): D50.0 - Iron deficiency anemia secondary to blood loss (chronic) Category: Medical Plan: Recent [facility] admission for significant anemia requiring 2 units of pack cells. No bleeding source identified. Endoscopies held at that time. She is following with GI. They did recommend that Eliquis be held and she is on aspirin. Labs from 09/24/2024 showed hemoglobin 9.6, hematocrit 30.4. No signs of active bleeding reported by her today. (2) Paroxysmal atrial fibrillation: Code(s): I48.0 - Paroxysmal atrial fibrillation Category: Medical Plan: Newer history of paroxysmal atrial fibrillation. She is on amiodarone for rhythm control and metoprolol for heart rate control. EKG today shows ectopic atrial rhythm, nonspecific ST abnormality, rate 59. Will have her reduce amiodarone to 100 mg daily. She was on Eliquis for anticoagulation and had gradual development of anemia requiring admission as above. She is currently on aspirin 81 mg daily. Informed her that aspirin does not reduce the stroke risk for atrial fibrillation. Recommend that Eliquis be restarted as soon as cleared by GI to do so. -plan for cardiology follow-up in 3 months with EKG at that time, sooner if needed. (3) Cardiomyopathy: Code(s): I42.9 - Cardiomyopathy, unspecified Category: Medical Plan: [facility] admission March 2024 for hypoxic respiratory failure and treated for aspiration pneumonia. An echocardiogram showed EF 25-30% with wall motion abnormality and she had mild troponin elevation. She was thought to have takotsubo cardiomyopathy. She was treated for her medical conditions and started on Entresto, metoprolol and Jardiance for neurohormonal modulation. She was diuresed and started on Lasix. A follow-up limited echocardiogram done 07/07/2024 showed EF 60-65%. On exam today she does not appear fluid overloaded. Labs 09/23/2024 showed creatinine 0.79. Will have her continue on Entresto, metoprolol and Jardiance. Continue monitoring for heart failure symptoms. Nuclear stress test previously ordered on her. Will hold this time due to reported history of dementia, normalization of EF and asymptomatic. (4) Acute HFrEF (heart failure with reduced ejection fraction): Code(s): I50.21 - Acute systolic (congestive) heart failure Category: Medical Plan: As above (5) Hospital discharge follow-up: Code(s): Z09 - Encounter for follow-up examination after completed treatment for conditions other than malignant neoplasm Category: Medical Plan: As above (6) Abnormal EKG: Code(s): R94.31 - Abnormal electrocardiogram [ECG] [EKG] Category: Medical Plan: EKG today showing ectopic atrial rhythm. Amiodarone dose being reduced. Plan recheck next visit. Plan During our discussion, I outlined the current management plan including amiodarone dose reduction to mitigate side effects, while continuing metoprolol and Entresto for heart failure. I emphasized the need to avoid anticoagulation due to unresolved bleeding and explained the interim use of aspirin. We focused on the importance of a GI consultation to determine bleeding source and possible future resumption of anticoagulant therapy to reduce the risk of stroke. I have planned a follow-up EKG in three months and reiterated the role of continuing current medications. We confirmed no recent signs of bleeding but stressed the significance of prompt reporting should it occur. Medications: Changed From amiodarone 200 mg PO DAILY To amiodarone pt in [facility] 100 mg (1/2 x 200 mg) PO DAILY 45 tabs 0RF Patient Instructions: - Continue taking amiodarone, metoprolol, Entresto, aspirin, and Lasix as prescribed - Monitor for any signs of bleeding and inform promptly - Follow up with the GI specialist as scheduled or contact them if no appointment is set - Attend scheduled appointment for follow-up EKG in three months - Maintain regular blood pressure and heart rate monitoring at home - Notify healthcare provider if experiencing unusual symptoms like shortness of breath or palpitations Patient was informed and verbally consented to the use of an ambient scribe for clinic note documentation during this visit. Visit time spent on chart review, interview, assessment, orders, documentation. Coding Level of Care Code Est Pt Level 4 (14597) Complex EM visit Add On G2211 Diagnoses Chronic blood loss anemia D50.0 Paroxysmal atrial fibrillation I48.0 Cardiomyopathy I42.9 Acute HFrEF (heart failure with reduced ejection fraction) I50.21 Hospital discharge follow-up Z09 Abnormal EKG R94.31 CPT Codes EKG - CPT: 90025-Mueufkfzyzmblbqzy, Complete ([id number]) Time Spent (min) 28
== END 2024-10-18 09:10 | disposition home or self-care (01) ==
PROVIDERS: PCP Family Medicine; Visit Provider Nurse Practitioner Family
DX: D50.0 Iron deficiency anemia secondary to blood loss (chronic) (principal); I48.0 Paroxysmal atrial fibrillation; I42.9 Cardiomyopathy, unspecified; I50.21 Acute systolic (congestive) heart failure; Z09 Encounter for follow-up examination after completed treatment for conditions other than malignant neoplasm; R94.31 Abnormal electrocardiogram [ECG] [EKG]
CPT/HCPCS: 93010; 99214; G2211

== ENCOUNTER → 2024-10-18 08:20 | Outpatient (BNVA) | payer MEDICARE, MEDICAID, SELFPAY | PROVIDERS: PCP Family Medicine; Visit Provider Nurse Practitioner Family | DX: I13.0 Hypertensive heart and chronic kidney disease with heart failure and stage 1 through stage 4 chronic kidney disease, or unspecified chronic kidney disease (principal); E11.22 Type 2 diabetes mellitus with diabetic chronic kidney disease; N18.9 Chronic kidney disease, unspecified; I69.351 Hemiplegia and hemiparesis following cerebral infarction affecting right dominant side; D50.0 Iron deficiency anemia secondary to blood loss (chronic); I48.0 Paroxysmal atrial fibrillation; I42.9 Cardiomyopathy, unspecified; I50.21 Acute systolic (congestive) heart failure; Z09 Encounter for follow-up examination after completed treatment for conditions other than malignant neoplasm; R94.31 Abnormal electrocardiogram [ECG] [EKG] | CPT/HCPCS: 93005; 99212 ==

== ENCOUNTER 2025-01-24 08:40 | Outpatient (AMB) | payer MEDICARE, MEDICAID, SELFPAY ==
--- NOTE | 2025-01-24 08:52 | MHC.OFFVIS ---
Vital Signs 01/24/25 08:53 Height 5 ft 2 in BP 130/52 L Blood Pressure Location Lt brachial Position Supine Pulse 64 Pulse Source Monitor Intake Visit Reasons: 3 mth f/up w/ ekg Interior Decorator Required: No Allergies tuberculin, purified protein deriva (TB TEST) Allergy (Unknown, Verified 10/18/24 08:41) UNK aspirin (ASA) Adverse Reaction (Unknown, Verified 10/18/24 08:41) GI UPSET, stomach upset Medication List - Last Reconciled 01/24/25 by MELLISA Wiggins acetaminophen 650 mg PO Q6H PRN amiodarone 100 mg (1/2 x 200 mg) PO DAILY aspirin 81 mg PO DAILY atorvastatin 80 mg PO BEDTIME bisacodyl 10 mg [place] DAILY PRN cholecalciferol (vitamin D3) 25 mcg PO DAILY clotrimazole 1% 1 appl topical DAILY PRN duloxetine 30 mg PO BID empagliflozin (Jardiance) 10 mg PO DAILY ferrous sulfate 325 mg PO DAILY folic acid 1 mg PO DAILY furosemide 20 mg See Protocol PO DAILY gabapentin 100 mg PO BEDTIME loperamide 2 mg PO Q6H PRN melatonin 10 mg PO BEDTIME metformin 500 mg PO BID metoprolol tartrate 50 mg PO BID mirtazapine (Remeron) 15 mg PO BEDTIME omega 4-ucc-mvf-fish oil 1,000 (120-180) mg (Fish Oil) 1 cap PO DAILY omeprazole 40 mg PO DAILY ondansetron HCl 4 mg PO TIDWM potassium chloride ER 40 mEq PO TUFR sacubitril-valsartan 24-26 mg (Entresto) 1 tab See Protocol PO BID sennosides (senna) 8.6 mg PO DAILY sertraline 100 mg PO DAILY sodium phosphates 19-7 gram/118 mL (Fleet Enema) 118 mL [place] DAILY PRN HPI HPI 3 mth f/up w/ ekg: Details: Traci is a 74-year-old female with past medical history of dementia, hyperlipidemia, hypertension, diabetes, CKD, CVA with right-sided weakness who was recently admitted to [facility] with anemia, hemoglobin 6.1. She received 2 units of pack cells. No bleeding source was identified. She was seen by GI who recommended holding off on EGD or colonoscopy at that time, holding Eliquis and starting aspirin. She was seen 3 months ago in follow up and now presents for follow-up again. Today she presents for this visit on an EMS [facility] stret[facility] from her [facility] facility. Patient is alert and appropriate during our visit. Her skin tone is very pale. She denies any bleeding issues. She has no physical complaints at present. She denies any recent chest discomfort. No shortness of breath, PND, orthopnea or edema. No lightheadedness, heart palpitations. She says she is mostly laying down and does not ambulate. She takes her meds as given to her. [facility] Medical History Anemia Paroxysmal atrial fibrillation Cardiomyopathy Acute CHF Sepsis Anemia Pneumonia Social History Household Members: Unknown / Unable to assess Housing: [facility] Do you presently have visiting nurse or other home services: No Unable to assess alcohol history related to: Unable to respond Patient Tobacco Use Status: Former Tobacco user Tobacco use type: Cigarette e-Cigarette/Vaping Use: Never Used Second Hand Smoke Exposure: No Advance Directives Date on File: 04/11/24 service: No Review of Systems Const All systems reviewed & are unremarkable except as noted in HPI and below Reports fatigue ENT Denies dizziness Card Denies chest pain, Denies chest pain at rest, Denies chest pain with activity, Denies rapid heart rate, Denies pedal edema, Denies edema, Denies leg edema, Denies lightheadedness, Denies palpitations, Denies dyspnea, Denies dyspnea on exertion and Denies orthopnea Resp Denies cough, Denies dyspnea and Denies dyspnea on exertion GI Denies hematochezia Musc Details: Does not ambulate Reports abnormal gait, Reports limited range of motion, Denies muscle cramps, Reports muscle weakness, Denies radiating pain into limb and Denies stiffness Neuro Reports abnormal gait and Denies dizziness Endo Reports fatigue and Denies palpitations Physical Exam Vital Signs: Last Vital Signs Pulse 64 01/24/25 08:53 BP 130/52 L 01/24/25 08:53 Const Other: laying on EMS transport stretcher - skin tone very pale General: cooperative, comfortable and no acute distress Orientation/consciousness: patient oriented x3 Neck Neck: Yes normal visual inspection Resp Effort & Inspection: normal respiratory effort Auscultation: clear to auscultation bilaterally, no rales, no rhonchi and no wheezes Cardio Jugular venous distension: no JVD Rate: regular rate Rhythm: regular rhythm Heart sounds: S1 normal heart sound present, S2 normal heart sound present, no murmurs and no rubs Neuro General: patient oriented x3 Extrem General: Yes normal to inspection Psych Appearance: grossly normal Mental Status: mental status grossly normal Speech and movement: Normal speech and movement present Office Procedures EKG Details: Today, read by me, sinus rhythm, left axis, nonspecific T wave abn, rte 64, Qtc 476ms [id number], Complete Assessment & Plan Assessment & Plan (1) Chronic blood loss anemia: Code(s): D50.0 - Iron deficiency anemia secondary to blood loss (chronic) Category: Medical Plan: September 2024 [facility] admission for significant anemia requiring 2 units of pack cells. No bleeding source identified. Endoscopies held at that time. She is following with GI. They did recommend that Eliquis be held and she is on aspirin. Labs from 09/24/2024 showed hemoglobin 9.6, hematocrit 30.4. Skin tone very pale on exam today. Wrote on her correction paperwork that CBC and GI follow-up is recommended. (2) Paroxysmal atrial fibrillation: Code(s): I48.0 - Paroxysmal atrial fibrillation Category: Medical Plan: Newer history of paroxysmal atrial fibrillation. She is on amiodarone for rhythm control and metoprolol for heart rate control. EKG today shows eSinus rhythm, rate 64, Qtc 476ms. She was on Eliquis for anticoagulation and had gradual development of anemia requiring admission as above. She is currently on aspirin 81 mg daily. Informed her that aspirin does not reduce the stroke risk for atrial fibrillation. Recommend that Eliquis be restarted as soon as cleared by GI to do so. At this time request that CBC be done and GI follow-up arranged. This was written on consult form for [facility] and sent back with patient. Cardiology follow-up in 3 months with EKG at that time, sooner if needed. (3) Cardiomyopathy: Code(s): I42.9 - Cardiomyopathy, unspecified Category: Medical Plan: [facility] admission March 2024 for hypoxic respiratory failure and treated for aspiration pneumonia. An echocardiogram showed EF 25-30% with wall motion abnormality and she had mild troponin elevation. She was thought to have takotsubo cardiomyopathy. She was treated for her medical conditions and started on Entresto, metoprolol and Jardiance for neurohormonal modulation. She was diuresed and started on Lasix. A follow-up limited echocardiogram done 07/07/2024 showed EF 60-65%. On exam today she does not appear fluid overloaded. Labs 09/23/2024 showed creatinine 0.79. Will have her continue on Entresto, metoprolol and Jardiance. Continue monitoring for heart failure symptoms. Nuclear stress test previously ordered on her. Will continue to hold this time due to reported history of dementia, normalization of EF and asymptomatic. Plan I discussed with the patient the importance of monitoring her blood counts and the potential need to restart anticoagulation therapy due to her atrial fibrillation. I recommended a follow-up with a GI specialist to ensure there are no contraindications to resuming blood thinners. We recommend update her lab work to assess her current blood counts and anemia status. Patient Instructions: - Follow up with a GI specialist to discuss blood thinner therapy. - Complete blood tests as scheduled to monitor anemia and blood counts. - Continue taking all prescribed medications. Patient was informed and verbally consented to the use of an ambient scribe for clinic note documentation during this visit. Visit time spent on chart review, interview, assessment, orders, documentation. Coding Level of Care Code Est Pt Level 4 (08388) Complex EM visit Add On G2211 Diagnoses Chronic blood loss anemia D50.0 Paroxysmal atrial fibrillation I48.0 Cardiomyopathy I42.9 CPT Codes EKG - CPT: 57512-[id number], Complete ([id number]) Time Spent (min) 28
[2025-01-24 08:53] VITALS: BP 130/52; PULSE 64
--- OUTSIDE RECORDS SUMMARY | 2025-01-24 09:47 | XMS_ITS | Encounter Summary ---
Author Organization [facility] Address [address] [place] [phone] Care Team Providers Care Rag Cutting Machine Feeder Name Role Phone Damien Kay MD Primary Care Provider [phone] Encounter Details Date Type Department Care Team (Late st Contact Info) Description 08/30/2024 Lab Requisition [facility] - Main Lab 299 [facility] [place] [address] Damien Kay MD 38 [facility] [address] [place], [phone] Heart failure, unspecified (CMS/HCC V24, CMS/HCC [...] 08/31/2024 6:37 AM EDT Heart failure, unspecified ([facility] V24, [facility] V28) Sepsis, unspecified organism ([facility] V24, [facility] V28) Hyperlipidemia, unspecified documented in this encounter Results * (ABNORMAL) B-type natriuretic peptide (08/31/2024 6:37 AM EDT) Pathologist [facility] BNP 710(H) <=100 pcg/mL LAB CHEMISTRY METHOD 08/31/2024 11:55 AM EDT [facility] Blood Venous blood specimen / Unknown Venipuncture / Unknown 08/31/2024 6:37 AM EDT 08/31/2024 11:13 AM EDT us Damien Kay MD LAB BLOOD ORDERABLES Final Resul t [facility] [address] [place] [address], [place] [phone] * Basic metabolic panel (08/31/2024 6:37 AM EDT) Pathologist [facility] Sodium 140 133 - 145 mmol/L LAB CHEMISTRY METHOD 08/31/2024 12:41 PM T [facility] Potassium 3.5 3.5 - 5.5 mmol/L LAB CHEMISTRY METHOD 08/31/2024 12:41 PM T [facility] Chloride 106 96 - 110 mmol/L LAB CHEMISTRY METHOD 08/31/2024 12:41 PM [facility] CO2 28 21 - 32 mmol/L LAB CHEMISTRY METHOD 08/31/2024 12:41 PM T [facility] Anion Gap 6 3 - 11 LAB CHEMISTRY METHOD 08/31/2024 12:41 PM [facility] Glucose 85 70 - 100 mg/dL LAB CHEMISTRY METHOD 08/31/2024 12:41 PM T [facility] BUN 16 5 - 25 mg/dL LAB CHEMISTRY METHOD 08/31/2024 12:41 PM EDT [facility] Creatinine 0.85 0.50 - 1.10 mg/dL LAB CHEMISTRY METHOD 08/31/2024 12:41 PM EDT [facility] eGFR 72 >=60 mL/min/1. 73m2 LAB CHEMISTRY METHOD 08/31/2024 12:41 PM EDT [facility] Comment:Calculation based on the Chronic Kidney Disease Epidemiology Collaboration (CKD-EPI) equation refit without adjustment for race. BUN/Creatinine Ratio 18.8 LAB CHEMISTRY METHOD 08/31/2024 12:41 PM EDT [facility] Calcium 8.6 8.5 - 10.5 mg/dL LAB CHEMISTRY METHOD 08/31/2024 12:41 PM T [facility] Blood Venous blood specimen / Unknown Venipuncture / Unknown 08/31/2024 6:37 AM EDT 08/31/2024 11:13 AM EDT us Damien Kay MD LAB BLOOD ORDERABLES Final Resul t [facility] [address] [place] [address], [place] [phone] * (ABNORMAL) Complete blood count (08/31/2024 6:37 AM EDT) WBC 5.8 4.8 - 10.8 K/mcL LAB HEMETOLOGY METHOD 08/31/2024 11:30 AM EDT [facility] RBC 2.20(L) 3.80 - 4.80 M/mcL LAB HEMETOLOGY METHOD 08/31/2024 11:30 AM EDT [facility] Hemoglobin 6.4(LL) 11.5 - 16.0 g/dL LAB HEMETOLOGY METHOD 08/31/2024 11:30 AM EDT [facility] Hematocrit 20.6(L) 35.0 - 47.0 % LAB HEMETOLOGY METHOD 08/31/2024 11:30 AM EDT [facility] MCV 95.0 79.0 - 98.0 FL LAB HEMETOLOGY METHOD 08/31/2024 11:30 AM EDT [facility] MCH 28.8 27.0 - 32.0 pcg LAB HEMETOLOGY METHOD 08/31/2024 11:30 AM EDT [facility] MCHC 30.3(L) 32.0 - 37.0 g/dL LAB HEMETOLOGY METHOD 08/31/2024 11:30 AM EDT [facility] RDW 15.5(H) 11.0 - 15.0 % LAB HEMETOLOGY METHOD 08/31/2024 11:30 AM EDT [facility] Platelets 541(H) 130 - 400 K/mcL LAB HEMETOLOGY METHOD 08/31/2024 11:30 AM EDT [facility] MPV 10.5 7.0 - 11.0 FL LAB HEMETOLOGY METHOD 08/31/2024 11:30 AM EDT [facility] NRBC 0.0 <1.0 % LAB HEMETOLOGY METHOD 08/31/2024 11:30 AM EDT [facility] NRBC Absolute 0.00 <0.10 K/mcL LAB HEMETOLOGY METHOD 08/31/2024 11:30 AM EDT [facility] Blood Venous blood specimen / Unknown Venipuncture / Unknown 08/31/2024 6:37 AM EDT 08/31/2024 11:13 AM EDT us Damien Kay MD LAB BLOOD ORDERABLES Final Resul t [facility] [address] [place] [address], documented in this encounter Visit Diagnoses Diagnosis Heart failure, unspecified (CMS/[facility] V24, [facility] V28) Heart failure, unspecified Sepsis, unspecified organism ([facility] V24, [facility] V28) Hyperlipidemia, unspecified documented in this encounter Care Teams Rag Cutting Machine Feeder Relationship Specialty Start Date End Date Damien Kay MD [address] [place] [address], [phone] PCP - General Family Medicine 07/05/24 documented as of this encounter
--- OUTSIDE RECORDS SUMMARY | 2025-01-24 09:47 | XMS_ITS | Encounter Summary ---
Author Organization [facility] Address [address] [place] [phone] Care Team Providers Care Customer Advocate Name Role Phone Damien Kay MD Primary Care Provider [phone] Encounter Details Date Type Department Care Team (Late st Contact Info) Description 07/26/2024 Lab Requisition [facility] - Main Lab 299 [facility] [place] [address] Damien Kay MD [address] [place] [address] [address] [place], [phone] Heart failure, unspecified (CMS/HCC V24, CMS/HCC [...] unspecified documented in this encounter Care Teams Customer Advocate Relationship Specialty Start Date End Date Damien Kay MD 38 [facility] [address] [place], [phone] PCP - General Family Medicine 07/05/24 documented as of this encounter
--- OUTSIDE RECORDS SUMMARY | 2025-01-24 09:47 | XMS_ITS | Encounter Summary ---
Author Organization [facility] Address [address] [place] [address] Care Team Providers Care Dry Dip Worker Name Role Phone Damien Kay MD Primary Care Provider [phone] Encounter Details Date Type Department Care Team (Late st Contact Info) Description 09/13/2024 Lab Requisition [facility] - Main Lab 299 [facility] [place] [address] Damien Kay MD 38 [facility] [address] [place], [phone] Heart failure, unspecified (CMS/HCC V24, CMS/HCC [...] 09/14/2024 8:30 AM EDT Heart failure, unspecified ([facility] V24, [facility] V28) Sepsis, unspecified organism ([facility] V24, [facility] V28) Hyperlipidemia, unspecified documented in this encounter Results * (ABNORMAL) B-type natriuretic peptide (09/14/2024 8:30 AM EDT) [facility] BNP 1,166(H) <=100 pcg/mL LAB CHEMISTRY METHOD 09/14/2024 12:26 PM EDT [facility] Blood Venous blood specimen / Unknown Venipuncture / Unknown 09/14/2024 8:30 AM EDT 09/14/2024 11:13 AM EDT us Damien Kay MD LAB BLOOD ORDERABLES Final Resul t [facility] [address] [place] [address], [place] [phone] * (ABNORMAL) Basic metabolic panel (09/14/2024 8:30 AM EDT) [facility] Sodium 139 133 - 145 mmol/L LAB CHEMISTRY METHOD 09/14/2024 6:44 PM EDT [facility] Potassium 3.9 3.5 - 5.5 mmol/L LAB CHEMISTRY METHOD 09/14/2024 6:44 PM EDT [facility] Chloride 106 96 - 110 mmol/L LAB CHEMISTRY METHOD 09/14/2024 6:44 PM EDT [facility] CO2 26 21 - 32 mmol/L LAB CHEMISTRY METHOD 09/14/2024 6:44 PM EDT [facility] Anion Gap 7 3 - 11 LAB CHEMISTRY METHOD 09/14/2024 6:44 PM EDT [facility] Glucose 103(H) 70 - 100 mg/dL LAB CHEMISTRY METHOD 09/14/2024 6:44 PM EDT [facility] BUN 15 5 - 25 mg/dL LAB CHEMISTRY METHOD 09/14/2024 6:44 PM EDT [facility] Creatinine 0.92 0.50 - 1.10 mg/dL LAB CHEMISTRY METHOD 09/14/2024 6:44 PM EDT [facility] eGFR 66 >=60 mL/min/1. 73m2 LAB CHEMISTRY METHOD 09/14/2024 6:44 PM EDT [facility] Comment:Calculation based on the Chronic Kidney Disease Epidemiology Collaboration (CKD-EPI) equation refit without adjustment for race. BUN/Creatinine Ratio 16.3 LAB CHEMISTRY METHOD 09/14/2024 6:44 PM EDT [facility] Calcium 9.0 8.5 - 10.5 mg/dL LAB CHEMISTRY METHOD 09/14/2024 6:44 PM EDT [facility] Blood Venous blood specimen / Unknown Venipuncture / Unknown 09/14/2024 8:30 AM EDT 09/14/2024 11:13 AM EDT us Damien Kay MD LAB BLOOD ORDERABLES Final Resul t [facility] [address] [place] [address], [place] [phone] * (ABNORMAL) Complete blood count (09/14/2024 8:30 AM EDT) WBC 6.4 4.8 - 10.8 K/mcL LAB HEMETOLOGY METHOD 09/14/2024 11:48 AM EDT [facility] RBC 2.50(L) 3.80 - 4.80 M/mcL LAB HEMETOLOGY METHOD 09/14/2024 11:48 AM EDT [facility] Hemoglobin 7.4(L) 11.5 - 16.0 g/dL LAB HEMETOLOGY METHOD 09/14/2024 11:48 AM EDT [facility] Hematocrit 24.5(L) 35.0 - 47.0 % LAB HEMETOLOGY METHOD 09/14/2024 11:48 AM EDT [facility] MCV 96.5 79.0 - 98.0 FL LAB HEMETOLOGY METHOD 09/14/2024 11:48 AM EDT [facility] MCH 29.1 27.0 - 32.0 pcg LAB HEMETOLOGY METHOD 09/14/2024 11:48 AM EDT [facility] MCHC 30.2(L) 32.0 - 37.0 g/dL LAB HEMETOLOGY METHOD 09/14/2024 11:48 AM EDT [facility] RDW 17.6(H) 11.0 - 15.0 % LAB HEMETOLOGY METHOD 09/14/2024 11:48 AM EDT [facility] Platelets 529(H) 130 - 400 K/mcL LAB HEMETOLOGY METHOD 09/14/2024 11:48 AM EDT [facility] MPV 10.6 7.0 - 11.0 FL LAB HEMETOLOGY METHOD 09/14/2024 11:48 AM EDT [facility] NRBC 0.0 <1.0 % LAB HEMETOLOGY METHOD 09/14/2024 11:48 AM EDT [facility] NRBC Absolute 0.00 <0.10 K/mcL LAB HEMETOLOGY METHOD 09/14/2024 11:48 AM EDT [facility] Blood Venous blood specimen / Unknown Venipuncture / Unknown 09/14/2024 8:30 AM EDT 09/14/2024 11:13 AM EDT us Damien Kay MD LAB BLOOD ORDERABLES Final Resul t [facility] [address] [place] [address], documented in this encounter Visit Diagnoses Diagnosis Heart failure, unspecified ([facility] V24, [facility] V28) Heart failure, unspecified Sepsis, unspecified organism ([facility] V24, [facility] V28) Hyperlipidemia, unspecified documented in this encounter Care Teams Dry Dip Worker Relationship Specialty Start Date End Date Damien Kay MD [address] [place] [address], [phone] PCP - General Family Medicine 07/05/24 documented as of this encounter
--- OUTSIDE RECORDS SUMMARY | 2025-01-24 09:47 | XMS_ITS | Encounter Summary ---
Author Organization [facility] Address [address] [place] [phone] Care Team Providers Care Relief Map Modeler Name Role Phone Damien Kay MD Primary Care Provider [phone] Encounter Details Date Type Department Care Team (Late st Contact Info) Description 06/14/2024 Lab Requisition [facility] - Main Lab 299 [facility] [place] [address] Damien Kay MD 38 [facility] [address] [place], [phone] Hyperlipidemia, unspecified; Sepsis, unspecified organism (CMS/HCC [...] pcg/mL LAB CHEMISTRY METHOD 06/15/2024 12:[address] [facility] Blood Venous blood specimen / Unknown Venipuncture / Unknown 06/15/2024 8:03 AM EST 06/15/2024 11:46 AM EST us Damien Kay MD LAB BLOOD ORDERABLES Final Resul t [facility] [address] [place] [address], * Basic metabolic panel (06/15/2024 8:03 AM EST) Sodium 140 133 - 145 mmol/L LAB CHEMISTRY METHOD 06/15/2024 12:[address] [facility] Potassium 3.6 3.5 - 5.5 mmol/L LAB CHEMISTRY METHOD 06/15/2024 12:[address] [facility] Chloride 105 96 - 110 mmol/L LAB CHEMISTRY METHOD 06/15/2024 12:[address] [facility] CO2 29 21 - 32 mmol/L LAB CHEMISTRY METHOD 06/15/2024 12:[address] [facility] Anion Gap 6 3 - 11 LAB CHEMISTRY METHOD 06/15/2024 12:[address] [facility] Glucose 83 70 - 100 mg/dL LAB CHEMISTRY METHOD 06/15/2024 12:40 PM EST [facility] BUN 10 5 - 25 mg/dL LAB CHEMISTRY METHOD 06/15/2024 12:[address] [facility] Creatinine 0.88 0.50 - 1.10 mg/dL LAB CHEMISTRY METHOD 06/15/2024 12:40 PM EST [facility] eGFR 70 >=60 mL/min/1. 73m2 LAB CHEMISTRY METHOD 06/15/2024 12:40 PM EST [facility] Comment:Calculation based on the Chronic Kidney Disease Epidemiology Collaboration (CKD-EPI) equation refit without adjustment for race. BUN/Creatinine Ratio 11.4 LAB CHEMISTRY METHOD 06/15/2024 12:40 PM EST [facility] Calcium 8.8 8.5 - 10.5 mg/dL LAB CHEMISTRY METHOD 06/15/2024 12:[address] [facility] Blood Venous blood specimen / Unknown Venipuncture / Unknown 06/15/2024 8:03 AM EST 06/15/2024 11:15 AM EST us Damien Kay MD LAB BLOOD ORDERABLES Final Resul t [facility] [address] [place] [address], * (ABNORMAL) Complete blood count (06/15/2024 8:03 AM EST) WBC 9.0 4.8 - 10.8 K/mcL LAB HEMETOLOGY METHOD 06/15/2024 12:[address] [facility] RBC 3.40(L) 3.80 - 4.80 M/mcL LAB HEMETOLOGY METHOD 06/15/2024 12:[address] [facility] Hemoglobin 8.9(L) 11.5 - 16.0 g/dL LAB HEMETOLOGY METHOD 06/15/2024 12:[address] [facility] Hematocrit 29.5(L) 35.0 - 47.0 % LAB HEMETOLOGY METHOD 06/15/2024 12:[address] [facility] MCV 87.8 79.0 - 98.0 FL LAB HEMETOLOGY METHOD 06/15/2024 12:[address] [facility] MCH 26.5(L) 27.0 - 32.0 pcg LAB HEMETOLOGY METHOD 06/15/2024 12:[address] [facility] MCHC 30.2(L) 32.0 - 37.0 g/dL LAB HEMETOLOGY METHOD 06/15/2024 12:[address] [facility] RDW 24.9(H) 11.0 - 15.0 % LAB HEMETOLOGY METHOD 06/15/2024 12:[address] [facility] Platelets 628(H) 130 - 400 K/mcL LAB HEMETOLOGY METHOD 06/15/2024 12:[address] [facility] MPV 11.3(H) 7.0 - 11.0 FL LAB HEMETOLOGY METHOD 06/15/2024 12:[address] [facility] NRBC 0.0 <1.0 % LAB HEMETOLOGY METHOD 06/15/2024 12:[address] [facility] NRBC Absolute 0.00 <0.10 K/mcL LAB HEMETOLOGY METHOD 06/15/2024 12:[address] [facility] Blood Venous blood specimen / Unknown Venipuncture / Unknown 06/15/2024 8:03 AM EST 06/15/2024 11:15 AM EST us Damien Kay MD LAB BLOOD ORDERABLES Final Resul t [facility] [address] [place] [address], [place] [phone] documented in this encounter Visit Diagnoses Diagnosis Hyperlipidemia, unspecified Sepsis, unspecified organism ([facility] V24, [facility] V28) Unspecified atrial fibrillation ([facility] V24, [facility] V28) Type 2 diabetes mellitus without complications ([facility] V24, [facility] V28) Heart failure, unspecified ([facility] V24, [facility] V28) Heart failure, unspecified documented in this encounter Care Teams Relief Map Modeler Relationship Specialty Start Date End Date Damien Kay MD [address] [place] [address], [phone] PCP - General Family Medicine 07/05/24 documented as of this encounter
--- OUTSIDE RECORDS SUMMARY | 2025-01-24 09:47 | XMS_ITS | Encounter Summary ---
Author Organization [facility] Address [address] [place] [address] Care Team Providers Care Scientific Diver Name Role Phone Damien Kay MD Primary Care Provider [phone] Encounter Details Date Type Department Care Team (Late st Contact Info) Description 09/20/2024 Lab Requisition [facility] - Main Lab 299 [facility] [place] [address] Damien Kay MD 38 [facility] [address] [place], [phone] Heart failure, unspecified (CMS/HCC V24, CMS/HCC [...] 09/21/2024 7:00 AM EDT Heart failure, unspecified ([facility] V24, [facility] V28) Sepsis, unspecified organism ([facility] V24, [facility] V28) Hyperlipidemia, unspecified documented in this encounter Results * Basic metabolic panel (09/21/2024 7:00 AM EDT) Sodium 142 133 - 145 mmol/L LAB CHEMISTRY METHOD 09/21/2024 11:17 AM [facility] Potassium 4.4 3.5 - 5.5 mmol/L LAB CHEMISTRY METHOD 09/21/2024 11:17 AM [facility] Chloride 109 96 - 110 mmol/L LAB CHEMISTRY METHOD 09/21/2024 11:17 AM [facility] CO2 26 21 - 32 mmol/L LAB CHEMISTRY METHOD 09/21/2024 11:17 AM [facility] Anion Gap 7 3 - 11 LAB CHEMISTRY METHOD 09/21/2024 11:17 AM [facility] Glucose 77 70 - 100 mg/dL LAB CHEMISTRY METHOD 09/21/2024 11:17 AM [facility] BUN 14 5 - 25 mg/dL LAB CHEMISTRY METHOD 09/21/2024 11:17 AM [facility] Creatinine 0.94 0.50 - 1.10 mg/dL LAB CHEMISTRY METHOD 09/21/2024 11:17 AM [facility] eGFR 64 >=60 mL/min/1. 73m2 LAB CHEMISTRY METHOD 09/21/2024 11:17 AM [facility] Comment:Calculation based on the Chronic Kidney Disease Epidemiology Collaboration (CKD-EPI) equation refit without adjustment for race. BUN/Creatinine Ratio 14.9 LAB CHEMISTRY METHOD 09/21/2024 11:17 AM [facility] Calcium 8.8 8.5 - 10.5 mg/dL LAB CHEMISTRY METHOD 09/21/2024 11:17 AM EDT [facility] Blood Venous blood specimen / Unknown Venipuncture / Unknown 09/21/2024 7:00 AM EDT 09/21/2024 11:17 AM EDT Damien Kay MD LAB BLOOD ORDERABLES Final Resul t Performing Organization Address [facility]/ZIP Co de Phone Number [facility] [address] [place] [address], [place] [phone] * (ABNORMAL) B-type natriuretic peptide (09/21/2024 7:00 AM EDT) BNP 740(H) <=100 pcg/mL LAB CHEMISTRY METHOD 09/21/2024 11:36 AM EDT [facility] Blood Venous blood specimen / Unknown Venipuncture / Unknown 09/21/2024 7:00 AM EDT 09/21/2024 10:28 AM EDT Damien Kay MD LAB BLOOD ORDERABLES Final Resul t Performing Organization Address [facility] de Phone Number [facility] [address] [place] [address], [place] [phone] * (ABNORMAL) Complete blood count (09/21/2024 7:00 AM EDT) WBC 6.8 4.8 - 10.8 K/[facility] LAB HEMETOLOGY METHOD 09/21/2024 10:52 AM EDT [facility] RBC 2.50(L) 3.80 - 4.80 M/[facility] LAB HEMETOLOGY METHOD 09/21/2024 10:52 AM EDT [facility] Hemoglobin 6.7(L) 11.5 - 16.0 g/dL LAB HEMETOLOGY METHOD 09/21/2024 10:52 AM EDT [facility] Hematocrit 22.9(L) 35.0 - 47.0 % LAB HEMETOLOGY METHOD 09/21/2024 10:52 AM EDT [facility] MCV 92.7 79.0 - 98.0 FL LAB HEMETOLOGY METHOD 09/21/2024 10:52 AM EDT [facility] MCH 27.1 27.0 - 32.0 pcg LAB HEMETOLOGY METHOD 09/21/2024 10:52 AM EDT [facility] MCHC 29.3(L) 32.0 - 37.0 g/dL LAB HEMETOLOGY METHOD 09/21/2024 10:52 AM EDT [facility] RDW 16.9(H) 11.0 - 15.0 % LAB HEMETOLOGY METHOD 09/21/2024 10:52 AM EDT [facility] Platelets 473(H) 130 - 400 K/mcL LAB HEMETOLOGY METHOD 09/21/2024 10:52 AM EDT [facility] MPV 11.3(H) 7.0 - 11.0 FL LAB HEMETOLOGY METHOD 09/21/2024 10:52 AM EDT [facility] NRBC 0.0 <1.0 % LAB HEMETOLOGY METHOD 09/21/2024 10:52 AM T [facility] NRBC Absolute 0.00 <0.10 K/mcL LAB HEMETOLOGY METHOD 09/21/2024 10:52 AM T [facility] Blood Venous blood specimen / Unknown Venipuncture / Unknown 09/21/2024 7:00 AM EDT 09/21/2024 10:30 AM EDT us Damien Kay MD LAB BLOOD ORDERABLES Final Resul t [facility] [address] [place] [address], documented in this encounter Visit Diagnoses Diagnosis Heart failure, unspecified ([facility] V24, [facility] V28) Heart failure, unspecified Sepsis, unspecified organism ([facility] V24, [facility] V28) Hyperlipidemia, unspecified documented in this encounter Care Teams Scientific Diver Relationship Specialty Start Date End Date Damien Kay MD [address] [place] [address], [phone] PCP - General Family Medicine 07/05/24 documented as of this encounter
--- OUTSIDE RECORDS SUMMARY | 2025-01-24 09:47 | XMS_ITS | Encounter Summary ---
Author Organization [facility] Address [address] [place] [phone] Care Team Providers Care Rheumatology Specialist Name Role Phone Damien Kay MD Primary Care Provider [phone] Encounter Details Date Type Department Care Team (Late st Contact Info) Description 05/14/[address] [facility] - Main Lab 299 [facility] [place] [address] Damien Kay MD 38 [facility] [address] [place], [phone] Type 2 diabetes mellitus without complications [...] K/mcL LAB HEMETOLOGY METHOD 05/16/2024 9:23 AM [facility] RBC 3.90 3.80 - 4.80 M/mcL LAB HEMETOLOGY METHOD 05/16/2024 9:23 AM [facility] Hemoglobin 9.9(L) 11.5 - 16.0 g/dL LAB HEMETOLOGY METHOD 05/16/2024 9:23 AM [facility] Hematocrit 33.8(L) 35.0 - 47.0 % LAB HEMETOLOGY METHOD 05/16/2024 9:23 AM [facility] MCV 87.8 79.0 - 98.0 FL LAB HEMETOLOGY METHOD 05/16/2024 9:23 AM [facility] MCH 25.7(L) 27.0 - 32.0 pcg LAB HEMETOLOGY METHOD 05/16/2024 9:23 AM [facility] MCHC 29.3(L) 32.0 - 37.0 g/dL LAB HEMETOLOGY METHOD 05/16/2024 9:23 AM [facility] RDW 19.8(H) 11.0 - 15.0 % LAB HEMETOLOGY METHOD 05/16/2024 9:23 AM [facility] Platelets 729(H) 130 - 400 K/mcL LAB HEMETOLOGY METHOD 05/16/2024 9:23 AM [facility] MPV 10.7 7.0 - 11.0 FL LAB HEMETOLOGY METHOD 05/16/2024 9:23 AM [facility] NRBC 0.0 <1.0 % LAB HEMETOLOGY METHOD 05/16/2024 9:23 AM [facility] NRBC Absolute 0.00 <0.10 K/mcL LAB HEMETOLOGY METHOD 05/16/2024 9:23 AM [facility] Neutrophils Relative 71.2 % LAB HEMETOLOGY METHOD 05/16/2024 9:23 AM [facility] Lymphocytes Relative 16.4 % LAB HEMETOLOGY METHOD 05/16/2024 9:23 AM [facility] Monocytes Relative 8.1 % LAB HEMETOLOGY METHOD 05/16/2024 9:23 AM [facility] Eosinophils Relative 2.3 % LAB HEMETOLOGY METHOD 05/16/2024 9:23 AM [facility] Basophils Relative 1.2 % LAB HEMETOLOGY METHOD 05/16/2024 9:23 AM [facility] Immature Granulocytes Relative 0.8 % LAB HEMETOLOGY METHOD 05/16/2024 9:23 AM [facility] Neutrophils Absolute 7.95(H) 1.50 - 7.00 K/mcL LAB HEMETOLOGY METHOD 05/16/2024 9:23 AM [facility] Lymphocytes Absolute 1.83 1.00 - 5.00 K/mcL LAB HEMETOLOGY METHOD 05/16/2024 9:23 AM [facility] Monocytes Absolute 0.91 0.20 - 1.00 K/mcL LAB HEMETOLOGY METHOD 05/16/2024 9:23 AM [facility] Eosinophils Absolute 0.26 0.00 - 0.50 K/mcL LAB HEMETOLOGY METHOD 05/16/2024 9:23 AM [facility] Basophils Absolute 0.13 0.00 - 0.20 K/mcL LAB HEMETOLOGY METHOD 05/16/2024 9:23 AM [facility] Immature Granulocytes Absolute 0.09(H) 0.00 - 0.03 K/mcL LAB HEMETOLOGY METHOD 05/16/2024 9:23 AM [facility] Blood Venous blood specimen / Unknown Venipuncture / Unknown 05/16/2024 4:53 AM EST 05/16/2024 8:29 AM EST us Damien Kay MD LAB BLOOD ORDERABLES Final Resul t [facility] [address] [place] [address], [place] [phone] * (ABNORMAL) Comprehensive metabolic panel (05/16/2024 4:53 [...] [facility] Comment:Calculation based on the Chronic Kidney Disease Epidemiology Collaboration (CKD-EPI) equation refit without adjustment for race. BUN/Creatinine Ratio 22.0 LAB [...] Final Resul t [facility] [address] [place] [address], documented in this encounter Visit Diagnoses Diagnosis Type 2 diabetes mellitus without complications (CMS/HCC V24, CMS/HCC V28) documented in this encounter Care Teams Rheumatology Specialist Relationship Specialty Start Date End Date Damien Kay MD [address] [place] [address], [phone] PCP - General Family Medicine 07/05/24 documented as of this encounter
--- OUTSIDE RECORDS SUMMARY | 2025-01-24 09:47 | XMS_ITS | Encounter Summary ---
Author Organization [facility] Address [address] [place] [phone] Care Team Providers Care Geotechnician Name Role Phone Damien Kay MD Primary Care Provider [phone] Encounter Details Date Type Department Care Team (Late st Contact Info) Description 05/04/2024 Lab Requisition [facility] - Main Lab [address] [place] [address] Damien Kay MD 38 [facility] 204 [place], [phone] Pneumonia, unspecified organism; Unspecified atrial fibrillation [...] mmol/L LAB CHEMISTRY METHOD 05/04/2024 11:33 AM [facility] Potassium 4.2 3.5 - 5.5 mmol/L LAB CHEMISTRY METHOD 05/04/2024 11:33 AM [facility] Chloride 103 96 - 110 mmol/L LAB CHEMISTRY METHOD 05/04/2024 11:33 AM [facility] CO2 27 21 - 32 mmol/L LAB CHEMISTRY METHOD 05/04/2024 11:33 AM [facility] Anion Gap 9 3 - 11 LAB CHEMISTRY METHOD 05/04/2024 11:33 AM [facility] Glucose 101(H) 70 - 100 mg/dL LAB CHEMISTRY METHOD 05/04/2024 11:33 AM [facility] BUN 24 5 - 25 mg/dL LAB CHEMISTRY METHOD 05/04/2024 11:33 AM [facility] Creatinine 1.39(H) 0.50 - 1.10 mg/dL LAB CHEMISTRY METHOD 05/04/2024 11:33 AM [facility] eGFR 40(L) >=60 mL/min/1. 73m2 LAB CHEMISTRY METHOD 05/04/2024 11:33 AM [facility] Comment:Calculation based on the Chronic Kidney Disease Epidemiology Collaboration (CKD-EPI) equation refit without adjustment for race. BUN/Creatinine Ratio 17.3 LAB CHEMISTRY METHOD 05/04/2024 11:33 AM EST [facility] Calcium 9.3 8.5 - 10.5 mg/dL LAB CHEMISTRY METHOD 05/04/2024 11:33 AM [facility] Blood Venous blood specimen / Unknown Venipuncture / Unknown 05/04/2024 7:19 AM EST 05/04/2024 9:56 AM EST us Damien Kay MD LAB BLOOD ORDERABLES Final Resul t [facility] [address] [place] [address], * (ABNORMAL) Complete blood count (05/04/2024 7:19 AM EST) WBC 9.5 4.8 - 10.8 K/mcL LAB HEMETOLOGY METHOD 05/04/2024 10:45 AM [facility] RBC 3.80 3.80 - 4.80 M/[facility] LAB HEMETOLOGY METHOD 05/04/2024 10:45 AM [facility] Hemoglobin 9.7(L) 11.5 - 16.0 g/dL LAB HEMETOLOGY METHOD 05/04/2024 10:45 AM [facility] Hematocrit 32.1(L) 35.0 - 47.0 % LAB HEMETOLOGY METHOD 05/04/2024 10:45 AM [facility] MCV 84.7 79.0 - 98.0 FL LAB HEMETOLOGY METHOD 05/04/2024 10:45 AM [facility] MCH 25.6(L) 27.0 - 32.0 pcg LAB HEMETOLOGY METHOD 05/04/2024 10:45 AM [facility] MCHC 30.2(L) 32.0 - 37.0 g/dL LAB HEMETOLOGY METHOD 05/04/2024 10:45 AM EST [facility] RDW 18.4(H) 11.0 - 15.0 % LAB HEMETOLOGY METHOD 05/04/2024 10:45 AM EST [facility] Platelets 477(H) 130 - 400 K/mcL LAB HEMETOLOGY METHOD 05/04/2024 10:45 AM EST [facility] MPV 10.5 7.0 - 11.0 FL LAB HEMETOLOGY METHOD 05/04/2024 10:45 AM EST [facility] NRBC 0.0 <1.0 % LAB HEMETOLOGY METHOD 05/04/2024 10:45 AM [facility] NRBC Absolute 0.00 <0.10 K/mcL LAB HEMETOLOGY METHOD 05/04/2024 10:45 AM [facility] Blood Venous blood specimen / Unknown Venipuncture / Unknown 05/04/2024 7:19 AM EST 05/04/2024 9:56 AM EST us Damien Kay MD LAB BLOOD ORDERABLES Final Resul t [facility] [address] [place] [address], documented in this encounter Visit Diagnoses Diagnosis Pneumonia, unspecified organism Unspecified atrial fibrillation ([facility]/HCC V24, [facility] V28) Unspecified dementia, unspecified severity, without behavioral disturbance, psychotic disturbance, mood disturbance, and anxiety (CMS/HCC V24, [facility] V28) Type 2 diabetes mellitus without complications (CMS/HCC V24, [facility] V28) Heart failure, unspecified (CMS/[facility] V24, [facility] V28) Heart failure, unspecified Sepsis, unspecified organism ([facility] V24, [facility] V28) documented in this encounter Care Teams Geotechnician Relationship Specialty Start Date End Date Damien Kay MD [address] [place], [place] [address], [phone] PCP - General Family Medicine 07/05/24 documented as of this encounter
--- OUTSIDE RECORDS SUMMARY | 2025-01-24 09:47 | XMS_ITS | Encounter Summary ---
Author Organization [facility] Address [address] [place] [phone] Care Team Providers Care Counselor Aide Name Role Phone Damien Kay MD Primary Care Provider [phone] Encounter Details Date Type Department Care Team (Late st Contact Info) Description 06/21/[address] [facility] - Main Lab 299 [facility] [place] [address] Damien Kay MD 38 [facility] [address] [place], [phone] Hyperlipidemia, unspecified; Sepsis, unspecified organism (CMS/HCC [...] B-type natriuretic peptide (06/22/2024 5:24 AM EST) [facility] BNP 911(H) <=100 pcg/mL LAB CHEMISTRY METHOD 06/22/2024 11:17 AM EST [facility] Blood Venous blood specimen / Unknown Venipuncture / Unknown 06/22/2024 5:24 AM EST 06/22/2024 10:34 AM EST us Damien Kay MD LAB BLOOD ORDERABLES Final Resul t [facility] [address] [place] [address], [place] [phone] * (ABNORMAL) Basic metabolic panel (06/22/2024 5:24 AM EST) [facility] Sodium 141 133 - 145 mmol/L LAB CHEMISTRY METHOD 06/22/2024 12:30 PM [facility] Potassium 3.1(L) 3.5 - 5.5 mmol/L LAB CHEMISTRY METHOD 06/22/2024 12:30 PM [facility] Chloride 107 96 - 110 mmol/L LAB CHEMISTRY METHOD 06/22/2024 12:30 PM [facility] CO2 25 21 - 32 mmol/L LAB CHEMISTRY METHOD 06/22/2024 12:30 PM [facility] Anion Gap 9 3 - 11 LAB CHEMISTRY METHOD 06/22/2024 12:30 PM [facility] Glucose 82 70 - 100 mg/dL LAB CHEMISTRY METHOD 06/22/2024 12:30 PM [facility] BUN 9 5 - 25 mg/dL LAB CHEMISTRY METHOD 06/22/2024 12:30 PM [facility] Creatinine 0.79 0.50 - 1.10 mg/dL LAB CHEMISTRY METHOD 06/22/2024 12:30 PM EST [facility] eGFR 80 >=60 mL/min/1. 73m2 LAB CHEMISTRY METHOD 06/22/2024 12:30 PM [facility] Comment:Calculation based on the Chronic Kidney Disease Epidemiology Collaboration (CKD-EPI) equation refit without adjustment for race. BUN/Creatinine Ratio 11.4 LAB CHEMISTRY METHOD 06/22/2024 12:30 PM [facility] Calcium 8.5 8.5 - 10.5 mg/dL LAB CHEMISTRY METHOD 06/22/2024 12:30 PM [facility] Blood Venous blood specimen / Unknown Venipuncture / Unknown 06/22/2024 5:24 AM EST 06/22/2024 10:34 AM EST us Damien Kay MD LAB BLOOD ORDERABLES Final Resul t [facility] [address] [place] [address], [place] [phone] * (ABNORMAL) Complete blood count (06/22/2024 5:24 AM EST) WBC 7.5 4.8 - 10.8 K/mcL LAB HEMETOLOGY METHOD 06/22/2024 10:58 AM [facility] RBC 2.90(L) 3.80 - 4.80 M/mcL LAB HEMETOLOGY METHOD 06/22/2024 10:58 AM [facility] Hemoglobin 7.7(L) 11.5 - 16.0 g/dL LAB HEMETOLOGY METHOD 06/22/2024 10:58 AM [facility] Hematocrit 24.8(L) 35.0 - 47.0 % LAB HEMETOLOGY METHOD 06/22/2024 10:58 AM [facility] MCV 86.1 79.0 - 98.0 FL LAB HEMETOLOGY METHOD 06/22/2024 10:58 AM [facility] MCH 26.7(L) 27.0 - 32.0 pcg LAB HEMETOLOGY METHOD 06/22/2024 10:58 AM [facility] MCHC 31.0(L) 32.0 - 37.0 g/dL LAB HEMETOLOGY METHOD 06/22/2024 10:58 AM [facility] RDW 25.0(H) 11.0 - 15.0 % LAB HEMETOLOGY METHOD 06/22/2024 10:58 AM [facility] Platelets 447(H) 130 - 400 K/mcL LAB HEMETOLOGY METHOD 06/22/2024 10:58 AM [facility] MPV 11.1(H) 7.0 - 11.0 FL LAB HEMETOLOGY METHOD 06/22/2024 10:58 AM [facility] NRBC 0.0 <1.0 % LAB HEMETOLOGY METHOD 06/22/2024 10:58 AM [facility] NRBC Absolute 0.00 <0.10 K/mcL LAB HEMETOLOGY METHOD 06/22/2024 10:58 AM [facility] Blood Venous blood specimen / Unknown Venipuncture / Unknown 06/22/2024 5:24 AM EST 06/22/2024 10:34 AM EST us Damien Kay MD LAB BLOOD ORDERABLES Final Resul t [facility] [address] [place] [address], documented in this encounter Visit Diagnoses Diagnosis Hyperlipidemia, unspecified Sepsis, unspecified organism (CMS/HCC V24, CMS/HCC V28) Heart failure, unspecified (CMS/HCC V24, CMS/HCC V28) Heart failure, unspecified documented in this encounter Care Teams Counselor Aide Relationship Specialty Start Date End Date Damien Kay MD [address] [place] [address] [address] [place], [phone] PCP - General Family Medicine 07/05/24 documented as of this encounter
--- OUTSIDE RECORDS SUMMARY | 2025-01-24 09:47 | XMS_ITS | Encounter Summary ---
Author Organization [facility] Address [address] [place] [address] Care Team Providers Care Cigarette Inspector Name Role Phone Damien Kay MD Primary Care Provider [phone] Encounter Details Date Type Department Care Team (Late st Contact Info) Description 08/02/[address] [facility] - Main Lab 299 [facility] [place] [address] Damien Kay MD 38 [facility] 204 [place], [address] Heart failure, unspecified (CMS/HCC V24, CMS/HCC [...] natriuretic peptide (08/03/2024 8:35 AM EDT) Pathologist [facility] BNP 457(H) <=100 pcg/mL LAB CHEMISTRY METHOD 08/03/2024 11:31 AM EDT [facility] Blood Venous blood specimen / Unknown Venipuncture / Unknown 08/03/2024 8:35 AM EDT 08/03/2024 10:45 AM EDT us Damien Kay MD LAB BLOOD ORDERABLES Final Resul t [facility] [address] [place] [address], [place] [phone] * (ABNORMAL) Basic metabolic panel (08/03/2024 8:35 AM EDT) [facility] Sodium 144 133 - 145 mmol/L LAB CHEMISTRY METHOD 08/03/2024 12:30 PM [facility] Potassium 3.3(L) 3.5 - 5.5 mmol/L LAB CHEMISTRY METHOD 08/03/2024 12:30 PM [facility] Chloride 111(H) 96 - 110 mmol/L LAB CHEMISTRY METHOD 08/03/2024 12:30 PM [facility] CO2 24 21 - 32 mmol/L LAB CHEMISTRY METHOD 08/03/2024 12:30 PM [facility] Anion Gap 9 3 - 11 LAB CHEMISTRY METHOD 08/03/2024 12:30 PM [facility] Glucose 77 70 - 100 mg/dL LAB CHEMISTRY METHOD 08/03/2024 12:30 PM [facility] BUN 10 5 - 25 mg/dL LAB CHEMISTRY METHOD 08/03/2024 12:30 PM [facility] Creatinine 0.77 0.50 - 1.10 mg/dL LAB CHEMISTRY METHOD 08/03/2024 12:30 PM EDT [facility] eGFR 82 >=60 mL/min/1. 73m2 LAB CHEMISTRY METHOD 08/03/2024 12:30 PM EDT [facility] Comment:Calculation based on the Chronic Kidney Disease Epidemiology Collaboration (CKD-EPI) equation refit without adjustment for race. BUN/Creatinine Ratio 13.0 LAB CHEMISTRY METHOD 08/03/2024 12:30 PM EDT [facility] Calcium 8.4(L) 8.5 - 10.5 mg/dL LAB CHEMISTRY METHOD 08/03/2024 12:30 PM EDT [facility] Blood Venous blood specimen / Unknown Venipuncture / Unknown 08/03/2024 8:35 AM EDT 08/03/2024 10:45 AM EDT us Damien Kay MD LAB BLOOD ORDERABLES Final Resul t [facility] [address] [place] [address], [place] [phone] * (ABNORMAL) Complete blood count (08/03/2024 8:35 AM EDT) WBC 6.5 4.8 - 10.8 K/mcL LAB HEMETOLOGY METHOD 08/03/2024 11:11 AM EDT [facility] RBC 2.70(L) 3.80 - 4.80 M/mcL LAB HEMETOLOGY METHOD 08/03/2024 11:11 AM EDT [facility] Hemoglobin 8.4(L) 11.5 - 16.0 g/dL LAB HEMETOLOGY METHOD 08/03/2024 11:11 AM EDT [facility] Hematocrit 26.3(L) 35.0 - 47.0 % LAB HEMETOLOGY METHOD 08/03/2024 11:11 AM EDT [facility] MCV 96.3 79.0 - 98.0 FL LAB HEMETOLOGY METHOD 08/03/2024 11:11 AM EDT [facility] MCH 30.8 27.0 - 32.0 pcg LAB HEMETOLOGY METHOD 08/03/2024 11:11 AM EDT [facility] MCHC 31.9(L) 32.0 - 37.0 g/dL LAB HEMETOLOGY METHOD 08/03/2024 11:11 AM EDT [facility] RDW 16.5(H) 11.0 - 15.0 % LAB HEMETOLOGY METHOD 08/03/2024 11:11 AM EDT [facility] Platelets 472(H) 130 - 400 K/mcL LAB HEMETOLOGY METHOD 08/03/2024 11:11 AM EDT [facility] MPV 10.9 7.0 - 11.0 FL LAB HEMETOLOGY METHOD 08/03/2024 11:11 AM EDT [facility] NRBC 0.0 <1.0 % LAB HEMETOLOGY METHOD 08/03/2024 11:11 AM EDT [facility] NRBC Absolute 0.00 <0.10 K/mcL LAB HEMETOLOGY METHOD 08/03/2024 11:11 AM T [facility] Blood Venous blood specimen / Unknown Venipuncture / Unknown 08/03/2024 8:35 AM EDT 08/03/2024 10:45 AM EDT us Damien Kay MD LAB BLOOD ORDERABLES Final Resul t [facility] [address] [place] [address], documented in this encounter Visit Diagnoses Diagnosis Heart failure, unspecified (CMS/HCC V24, CMS/HCC V28) Heart failure, unspecified Sepsis, unspecified organism (CMS/HCC V24, CMS/HCC V28) Hyperlipidemia, unspecified documented in this encounter Care Teams Cigarette Inspector Relationship Specialty Start Date End Date Damien Kay MD [address] [place] [address], [phone] PCP - General Family Medicine 07/05/24 documented as of this encounter
--- OUTSIDE RECORDS SUMMARY | 2025-01-24 09:47 | XMS_ITS | Encounter Summary ---
Author Organization [facility] Address [address] [place] [phone] Care Team Providers Care Online Banking Specialist Name Role Phone Damien Kay MD Primary Care Provider [phone] Encounter Details Date Type Department Care Team (Late st Contact Info) Description 09/22/2024 Lab Requisition [facility] - Main Lab [address] [place] [address] Damien Kay MD 38 [facility] 204 [place], [phone] Type 2 diabetes mellitus without complications [...] AM EDT) WBC 7.5 4.8 - 10.8 K/[facility] LAB HEMETOLOGY METHOD 09/22/2024 8:25 AM EDT [facility] RBC 2.30(L) 3.80 - 4.80 M/[facility] LAB HEMETOLOGY METHOD 09/22/2024 8:25 AM EDT [facility] Hemoglobin 6.1(LL) 11.5 - 16.0 g/dL LAB HEMETOLOGY METHOD 09/22/2024 8:25 AM [facility] Hematocrit 20.8(L) 35.0 - 47.0 % LAB HEMETOLOGY METHOD 09/22/2024 8:25 AM [facility] MCV 92.0 79.0 - 98.0 FL LAB HEMETOLOGY METHOD 09/22/2024 8:25 AM EDT [facility] MCH 27.0 27.0 - 32.0 pcg LAB HEMETOLOGY METHOD 09/22/2024 8:25 AM [facility] MCHC 29.3(L) 32.0 - 37.0 g/dL LAB HEMETOLOGY METHOD 09/22/2024 8:25 AM [facility] RDW 16.7(H) 11.0 - 15.0 % LAB HEMETOLOGY METHOD 09/22/2024 8:25 AM [facility] Platelets 469(H) 130 - 400 K/mcL LAB HEMETOLOGY METHOD 09/22/2024 8:25 AM [facility] MPV 11.0 7.0 - 11.0 FL LAB HEMETOLOGY METHOD 09/22/2024 8:25 AM [facility] NRBC 0.0 <1.0 % LAB HEMETOLOGY METHOD 09/22/2024 8:25 AM [facility] NRBC Absolute 0.00 <0.10 K/mcL LAB HEMETOLOGY METHOD 09/22/2024 8:25 AM [facility] Blood Venous blood specimen / Unknown Venipuncture / Unknown 09/22/2024 4:53 AM EDT 09/22/2024 7:31 AM EDT us Damien Kay MD LAB BLOOD ORDERABLES Final Resul t [facility] H[facility] LAB [address] [place] [address], documented in this encounter Visit Diagnoses Diagnosis Type 2 diabetes mellitus without complications (CMS/HCC V24, CMS/HCC V28) documented in this encounter Care Teams Online Banking Specialist Relationship Specialty Start Date End Date Damien Kay MD [address] [place] [address], [phone] PCP - General Family Medicine 07/05/24 documented as of this encounter
--- OUTSIDE RECORDS SUMMARY | 2025-01-24 09:47 | XMS_ITS | Encounter Summary ---
Author Organization [facility] Address [address] [place] [phone] Care Team Providers Care Javascript Developer Name Role Phone Damien Kya MD Primary Care Provider [phone] Encounter Details Date Type Department Care Team (Late st Contact Info) Description 05/07/2024 Lab Requisition [facility] - Main Lab 299 [facility] [place] [address] Damien Kay MD 38 [facility] 204 [place], [phone] Type 2 diabetes mellitus without complications [...] K/mcL LAB HEMETOLOGY METHOD 05/09/2024 9:43 AM [facility] LAB RBC 3.80 3.80 - 4.80 M/mcL LAB HEMETOLOGY METHOD 05/09/2024 9:43 AM [facility] LAB Hemoglobin 9.6(L) 11.5 - 16.0 g/dL LAB HEMETOLOGY METHOD 05/09/2024 9:43 AM [facility] LAB Hematocrit 32.0(L) 35.0 - 47.0 % LAB HEMETOLOGY METHOD 05/09/2024 9:43 AM [facility] LAB MCV 84.2 79.0 - 98.0 FL LAB HEMETOLOGY METHOD 05/09/2024 9:43 AM [facility] LAB MCH 25.3(L) 27.0 - 32.0 pcg LAB HEMETOLOGY METHOD 05/09/2024 9:43 AM [facility] LAB MCHC 30.0(L) 32.0 - 37.0 g/dL LAB HEMETOLOGY METHOD 05/09/2024 9:43 AM [facility] LAB RDW 18.6(H) 11.0 - 15.0 % LAB HEMETOLOGY METHOD 05/09/2024 9:43 AM [facility] LAB Platelets 604(H) 130 - 400 K/mcL LAB HEMETOLOGY METHOD 05/09/2024 9:43 AM [facility] LAB MPV 10.4 7.0 - 11.0 FL LAB HEMETOLOGY METHOD 05/09/2024 9:43 AM [facility] LAB NRBC 0.0 <1.0 % LAB HEMETOLOGY METHOD 05/09/2024 9:43 AM [facility] LAB NRBC Absolute 0.00 <0.10 K/mcL LAB HEMETOLOGY METHOD 05/09/2024 9:43 AM [facility] LAB Neutrophils Relative 68.9 % LAB HEMETOLOGY METHOD 05/09/2024 9:43 AM [facility] LAB Lymphocytes Relative 14.8 % LAB HEMETOLOGY METHOD 05/09/2024 9:43 AM [facility] LAB Monocytes Relative 8.9 % LAB HEMETOLOGY METHOD 05/09/2024 9:43 AM [facility] LAB Eosinophils Relative 5.9 % LAB HEMETOLOGY METHOD 05/09/2024 9:43 AM [facility] LAB Basophils Relative 1.0 % LAB HEMETOLOGY METHOD 05/09/2024 9:43 AM [facility] LAB Immature Granulocytes Relative 0.5 % LAB HEMETOLOGY METHOD 05/09/2024 9:43 AM [facility] LAB Neutrophils Absolute 5.95 1.50 - 7.00 K/mcL LAB HEMETOLOGY METHOD 05/09/2024 9:43 AM [facility] LAB Lymphocytes Absolute 1.28 1.00 - 5.00 K/mcL LAB HEMETOLOGY METHOD 05/09/2024 9:43 AM [facility] LAB Monocytes Absolute 0.77 0.20 - 1.00 K/mcL LAB HEMETOLOGY METHOD 05/09/2024 9:43 AM [facility] LAB Eosinophils Absolute 0.51(H) 0.00 - 0.50 K/mcL LAB HEMETOLOGY METHOD 05/09/2024 9:43 AM [facility] LAB Basophils Absolute 0.09 0.00 - 0.20 K/mcL LAB HEMETOLOGY METHOD 05/09/2024 9:43 AM [facility] LAB Immature Granulocytes Absolute 0.04(H) 0.00 - 0.03 K/mcL LAB HEMETOLOGY METHOD 05/09/2024 9:43 AM [facility] LAB Blood Venous blood specimen / Unknown Venipuncture / Unknown 05/09/2024 4:44 AM EST 05/09/2024 9:34 AM EST us Damien Kay MD LAB BLOOD ORDERABLES Final Resul t [facility] [address] [place] [address], [place] [phone] * (ABNORMAL) Comprehensive metabolic panel (05/09/2024 4:44 AM EST) Sodium 134 133 - 145 mmol/L LAB CHEMISTRY METHOD 05/09/2024 10:12 AM [facility] LAB Potassium 3.7 3.5 - 5.5 mmol/L LAB CHEMISTRY METHOD 05/09/2024 10:12 AM [facility] LAB Chloride 97 96 - 110 mmol/L LAB CHEMISTRY METHOD 05/09/2024 10:12 AM [facility] LAB CO2 29 21 - 32 mmol/L LAB CHEMISTRY METHOD 05/09/2024 10:12 AM [facility] LAB Anion Gap 8 3 - 11 LAB CHEMISTRY METHOD 05/09/2024 10:12 AM [facility] LAB Glucose 84 70 - 100 mg/dL LAB CHEMISTRY METHOD 05/09/2024 10:12 AM [facility] LAB BUN 23 5 - 25 mg/dL LAB CHEMISTRY METHOD 05/09/2024 10:12 AM [facility] LAB Creatinine 1.28(H) 0.50 - 1.10 mg/dL LAB CHEMISTRY METHOD 05/09/2024 10:12 AM [facility] LAB eGFR 45(L) >=60 mL/min/1. 73m2 LAB CHEMISTRY METHOD 05/09/2024 10:12 AM [facility] LAB Comment:Calculation based on the Chronic Kidney Disease Epidemiology Collaboration (CKD-EPI) equation refit without adjustment for race. BUN/Creatinine Ratio 18.0 LAB CHEMISTRY METHOD 05/09/2024 10:12 AM [facility] LAB Calcium 8.9 8.5 - 10.5 mg/dL LAB CHEMISTRY METHOD 05/09/2024 10:12 AM [facility] LAB AST (SGOT) 22 10 - 42 unit/L LAB CHEMISTRY METHOD 05/09/2024 10:12 AM [facility] LAB ALT (SGPT) 20 10 - 60 unit/L LAB CHEMISTRY METHOD 05/09/2024 10:12 AM [facility] LAB Alkaline Phosphatase 72 42 - 121 unit/L LAB CHEMISTRY METHOD 05/09/2024 10:12 AM [facility] LAB Total Protein 6.0 6.0 - 8.0 g/dL LAB CHEMISTRY METHOD 05/09/2024 10:12 AM [facility] LAB Albumin 2.4(L) 3.2 - 5.0 g/dL LAB CHEMISTRY METHOD 05/09/2024 10:12 AM [facility] LAB Total Bilirubin 0.4 0.0 - 1.4 mg/dL LAB CHEMISTRY METHOD 05/09/2024 10:12 AM [facility] LAB Blood Venous blood specimen / Unknown Venipuncture / Unknown 05/09/2024 4:44 AM EST 05/09/2024 9:34 AM EST us Damien Kay MD LAB BLOOD ORDERABLES Final Resul t [facility] [address] [place] [address], documented in this encounter Visit Diagnoses Diagnosis Type 2 diabetes mellitus without complications (CMS/HCC V24, CMS/HCC V28) documented in this encounter Care Teams Javascript Developer Relationship Specialty Start Date End Date Damien Kay MD [address] [place] [address], [phone] PCP - General Family Medicine 07/05/24 documented as of this encounter
--- OUTSIDE RECORDS SUMMARY | 2025-01-24 09:47 | XMS_ITS | Encounter Summary ---
Author Organization [facility] Address [address] [place] [phone] Care Team Providers Care Web Development Director Name Role Phone Damien Kay MD Primary Care Provider [phone] Encounter Details Date Type Department Care Team (Late st Contact Info) Description 05/17/2024 Lab Requisition [facility] - Main Lab 299 [facility] [place] [address] Damien Kay MD 38 [facility] 204 [place], [phone] Unspecified atrial fibrillation (CMS/HCC V24, CMS/HCC [...] mmol/L LAB CHEMISTRY METHOD 05/19/2024 11:23 AM [facility] LAB Potassium 4.1 3.5 - 5.5 mmol/L LAB CHEMISTRY METHOD 05/19/2024 11:23 AM [facility] LAB Chloride 102 96 - 110 mmol/L LAB CHEMISTRY METHOD 05/19/2024 11:23 AM [facility] LAB CO2 23 21 - 32 mmol/L LAB CHEMISTRY METHOD 05/19/2024 11:23 AM [facility] LAB Anion Gap 11 3 - 11 LAB CHEMISTRY METHOD 05/19/2024 11:23 AM [facility] LAB Glucose 81 70 - 100 mg/dL LAB CHEMISTRY METHOD 05/19/2024 11:23 AM [facility] LAB BUN 57(H) 5 - 25 mg/dL LAB CHEMISTRY METHOD 05/19/2024 11:23 AM [facility] LAB Creatinine 2.71(H) 0.50 - 1.10 mg/dL LAB CHEMISTRY METHOD 05/19/2024 11:23 AM [facility] LAB eGFR 18(L) >=60 mL/min/1. 73m2 LAB CHEMISTRY METHOD 05/19/2024 11:23 AM [facility] LAB Comment:Calculation based on the Chronic Kidney Disease Epidemiology Collaboration (CKD-EPI) equation refit without adjustment for race. BUN/Creatinine Ratio 21.0 LAB CHEMISTRY METHOD 05/19/2024 11:23 AM [facility] LAB Calcium 8.9 8.5 - 10.5 mg/dL LAB CHEMISTRY METHOD 05/19/2024 11:23 AM [facility] LAB Blood Venous blood specimen / Unknown Venipuncture / Unknown 05/19/2024 5:53 AM EST 05/19/2024 9:36 AM EST us Damien Kay MD LAB BLOOD ORDERABLES Final Resul t [facility] [address] [place] [address], * (ABNORMAL) Complete blood count (05/19/2024 5:53 AM EST) WBC 10.7 4.8 - 10.8 K/mcL LAB HEMETOLOGY METHOD 05/19/2024 10:51 AM EST [facility] RBC 3.70(L) 3.80 - 4.80 M/mcL LAB HEMETOLOGY METHOD 05/19/2024 10:51 AM EST [facility] Hemoglobin 9.5(L) 11.5 - 16.0 g/dL LAB HEMETOLOGY METHOD 05/19/2024 10:51 AM EST [facility] LAB Hematocrit 31.8(L) 35.0 - 47.0 % LAB HEMETOLOGY METHOD 05/19/2024 10:51 AM EST [facility] LAB MCV 85.3 79.0 - 98.0 FL LAB HEMETOLOGY METHOD 05/19/2024 10:51 AM [facility] LAB MCH 25.5(L) 27.0 - 32.0 pcg LAB HEMETOLOGY METHOD 05/19/2024 10:51 AM [facility] LAB MCHC 29.9(L) 32.0 - 37.0 g/dL LAB HEMETOLOGY METHOD 05/19/2024 10:51 AM [facility] LAB RDW 19.5(H) 11.0 - 15.0 % LAB HEMETOLOGY METHOD 05/19/2024 10:51 AM [facility] LAB Platelets 668(H) 130 - 400 K/mcL LAB HEMETOLOGY METHOD 05/19/2024 10:51 AM [facility] LAB MPV 11.2(H) 7.0 - 11.0 FL LAB HEMETOLOGY METHOD 05/19/2024 10:51 AM EST [facility] NRBC 0.0 <1.0 % LAB HEMETOLOGY METHOD 05/19/2024 10:51 AM EST [facility] NRBC Absolute 0.00 <0.10 K/mcL LAB HEMETOLOGY METHOD 05/19/2024 10:51 AM EST [facility] Blood Venous blood specimen / Unknown Venipuncture / Unknown 05/19/2024 5:53 AM EST 05/19/2024 9:37 AM EST us Damien Kay MD LAB BLOOD ORDERABLES Final Resul t [facility] [address] [place] [address], documented in this encounter Visit Diagnoses Diagnosis Unspecified atrial fibrillation (CMS/HCC V24, CMS/HCC V28) Type 2 diabetes mellitus without complications (CMS/HCC V24, CMS/HCC V28) Heart failure, unspecified (CMS/HCC V24, CMS/HCC V28) Heart failure, unspecified documented in this encounter Care Teams Web Development Director Relationship Specialty Start Date End Date Damien Kay MD [address] [place] [address], [phone] PCP - General Family Medicine 07/05/24 documented as of this encounter
--- OUTSIDE RECORDS SUMMARY | 2025-01-24 09:48 | XMS_ITS | Encounter Summary ---
Author Organization [facility] Address [address] [place] [phone] Care Team Providers Care Smokehouse Operator Name Role Phone Damien Kay MD Primary Care Provider [phone] Encounter Details Date Type Department Care Team (Late st Contact Info) Description 04/29/2024 Lab Requisition [facility] - Main Lab 299 [facility] [employer] [place] [address] Damien Kay MD 38 [facility] 204 [place], [phone] Type 2 diabetes mellitus without complications [...] K/mcL LAB HEMETOLOGY METHOD 05/02/2024 10:43 AM [facility] LAB RBC 3.60(L) 3.80 - 4.80 M/mcL LAB HEMETOLOGY METHOD 05/02/2024 10:43 AM [facility] LAB Hemoglobin 9.2(L) 11.5 - 16.0 g/dL LAB HEMETOLOGY METHOD 05/02/2024 10:43 AM [facility] LAB Hematocrit 30.4(L) 35.0 - 47.0 % LAB HEMETOLOGY METHOD 05/02/2024 10:43 AM [facility] LAB MCV 85.2 79.0 - 98.0 FL LAB HEMETOLOGY METHOD 05/02/2024 10:43 AM [facility] LAB MCH 25.8(L) 27.0 - 32.0 pcg LAB HEMETOLOGY METHOD 05/02/2024 10:43 AM [facility] LAB MCHC 30.3(L) 32.0 - 37.0 g/dL LAB HEMETOLOGY METHOD 05/02/2024 10:43 AM [facility] LAB RDW 17.8(H) 11.0 - 15.0 % LAB HEMETOLOGY METHOD 05/02/2024 10:43 AM [facility] LAB Platelets 454(H) 130 - 400 K/mcL LAB HEMETOLOGY METHOD 05/02/2024 10:43 AM [facility] LAB MPV 10.9 7.0 - 11.0 FL LAB HEMETOLOGY METHOD 05/02/2024 10:43 AM [facility] LAB NRBC 0.0 <1.0 % LAB HEMETOLOGY METHOD 05/02/2024 10:43 AM [facility] LAB NRBC Absolute 0.00 <0.10 K/mcL LAB HEMETOLOGY METHOD 05/02/2024 10:43 AM [facility] LAB Neutrophils Relative 70.8 % LAB HEMETOLOGY METHOD 05/02/2024 10:43 AM [facility] LAB Lymphocytes Relative 14.5 % LAB HEMETOLOGY METHOD 05/02/2024 10:43 AM [facility] Monocytes Relative 9.1 % LAB HEMETOLOGY METHOD 05/02/2024 10:43 AM [facility] Eosinophils Relative 4.4 % LAB HEMETOLOGY METHOD 05/02/2024 10:43 AM [facility] Basophils Relative 0.9 % LAB HEMETOLOGY METHOD 05/02/2024 10:43 AM [facility] LAB Immature Granulocytes Relative 0.3 % LAB HEMETOLOGY METHOD 05/02/2024 10:43 AM [facility] LAB Neutrophils Absolute 7.65(H) 1.50 - 7.00 K/mcL LAB HEMETOLOGY METHOD 05/02/2024 10:43 AM [facility] Lymphocytes Absolute 1.57 1.00 - 5.00 K/mcL LAB HEMETOLOGY METHOD 05/02/2024 10:43 AM [facility] Monocytes Absolute 0.99 0.20 - 1.00 K/mcL LAB HEMETOLOGY METHOD 05/02/2024 10:43 AM [facility] Eosinophils Absolute 0.48 0.00 - 0.50 K/mcL LAB HEMETOLOGY METHOD 05/02/2024 10:43 AM [facility] Basophils Absolute 0.10 0.00 - 0.20 K/mcL LAB HEMETOLOGY METHOD 05/02/2024 10:43 AM [facility] Immature Granulocytes Absolute 0.03 0.00 - 0.03 K/mcL LAB HEMETOLOGY METHOD 05/02/2024 10:43 AM [facility] Blood Venous blood specimen / Unknown Venipuncture / Unknown 05/02/2024 5:51 AM EST 05/02/2024 10:24 AM EST us Damien Kay MD LAB BLOOD ORDERABLES Final Resul t [facility] [address] [place] [address], [place] [phone] * (ABNORMAL) Comprehensive metabolic panel (05/02/2024 5:51 AM EST) Sodium 136 133 - 145 mmol/L LAB CHEMISTRY METHOD 05/02/2024 1:07 PM [facility] Potassium 3.5 3.5 - 5.5 mmol/L LAB CHEMISTRY METHOD 05/02/2024 1:07 PM [facility] Chloride 101 96 - 110 mmol/L LAB CHEMISTRY METHOD 05/02/2024 1:07 PM [facility] CO2 23 21 - 32 mmol/L LAB CHEMISTRY METHOD 05/02/2024 1:07 PM [facility] Anion Gap 12(H) 3 - 11 LAB CHEMISTRY METHOD 05/02/2024 1:07 PM [facility] Glucose 96 70 - 100 mg/dL LAB CHEMISTRY METHOD 05/02/2024 1:07 PM [facility] BUN 23 5 - 25 mg/dL LAB CHEMISTRY METHOD 05/02/2024 1:07 PM [facility] Creatinine 1.38(H) 0.50 - 1.10 mg/dL LAB CHEMISTRY METHOD 05/02/2024 1:07 PM [facility] LAB eGFR 41(L) >=60 mL/min/1. 73m2 LAB CHEMISTRY METHOD 05/02/2024 1:07 PM [facility] Comment:Calculation based on the Chronic Kidney Disease Epidemiology Collaboration (CKD-EPI) equation refit without adjustment for race. BUN/Creatinine Ratio 16.7 LAB CHEMISTRY METHOD 05/02/2024 1:07 PM [facility] Calcium 9.2 8.5 - 10.5 mg/dL LAB CHEMISTRY METHOD 05/02/2024 1:07 PM [facility] AST (SGOT) 30 10 - 42 unit/L LAB CHEMISTRY METHOD 05/02/2024 1:07 PM [facility] ALT (SGPT) 29 10 - 60 unit/L LAB CHEMISTRY METHOD 05/02/2024 1:07 PM [facility] Alkaline Phosphatase 68 42 - 121 unit/L LAB CHEMISTRY METHOD 05/02/2024 1:07 PM [facility] Total Protein 5.7(L) 6.0 - 8.0 g/dL LAB CHEMISTRY METHOD 05/02/2024 1:07 PM [facility] Albumin 2.4(L) 3.2 - 5.0 g/dL LAB CHEMISTRY METHOD 05/02/2024 1:07 PM [facility] Total Bilirubin 0.4 0.0 - 1.4 mg/dL LAB CHEMISTRY METHOD 05/02/2024 1:07 PM [facility] Blood Venous blood specimen / Unknown Venipuncture / Unknown 05/02/2024 5:51 AM EST 05/02/2024 10:26 AM EST us Damien Kay MD LAB BLOOD ORDERABLES Final Resul t [facility] [address] [place] [address], documented in this encounter Visit Diagnoses Diagnosis Type 2 diabetes mellitus without complications (CMS/HCC V24, CMS/HCC V28) documented in this encounter Care Teams Smokehouse Operator Relationship Specialty Start Date End Date Damien Kay MD [address] [place] [address] [address] [place], [phone] PCP - General Family Medicine 07/05/24 documented as of this encounter
--- OUTSIDE RECORDS SUMMARY | 2025-01-24 09:48 | XMS_ITS | Encounter Summary ---
Author Organization [facility] Address [address] [place] [phone] Care Team Providers Care Thaw Shed Heater Tender Name Role Phone Damien Kay MD Primary Care Provider [phone] Encounter Details Date Type Department Care Team (Late st Contact Info) Description 06/07/2024 Lab Requisition [facility] - Main Lab 299 [facility] [place] [address] Damien Kay MD 38 [facility] 204 [place], [phone] Unspecified atrial fibrillation (CMS/HCC V24, CMS/HCC [...] mmol/L LAB CHEMISTRY METHOD 06/08/2024 2:17 PM [facility] Potassium 3.5 3.5 - 5.5 mmol/L LAB CHEMISTRY METHOD 06/08/2024 2:17 PM [facility] Chloride 108 96 - 110 mmol/L LAB CHEMISTRY METHOD 06/08/2024 2:17 PM [facility] CO2 27 21 - 32 mmol/L LAB CHEMISTRY METHOD 06/08/2024 2:17 PM [facility] Anion Gap 6 3 - 11 LAB CHEMISTRY METHOD 06/08/2024 2:17 PM [facility] Glucose 88 70 - 100 mg/dL LAB CHEMISTRY METHOD 06/08/2024 2:17 PM [facility] BUN 17 5 - 25 mg/dL LAB CHEMISTRY METHOD 06/08/2024 2:17 PM [facility] Creatinine 1.14(H) 0.50 - 1.10 mg/dL LAB CHEMISTRY METHOD 06/08/2024 2:17 PM [facility] eGFR 51(L) >=60 mL/min/1. 73m2 LAB CHEMISTRY METHOD 06/08/2024 2:17 PM [facility] Comment:Calculation based on the Chronic Kidney Disease Epidemiology Collaboration (CKD-EPI) equation refit without adjustment for race. BUN/Creatinine Ratio 14.9 LAB CHEMISTRY METHOD 06/08/2024 2:17 PM [facility] Calcium 8.5 8.5 - 10.5 mg/dL LAB CHEMISTRY METHOD 06/08/2024 2:17 PM [facility] Blood Venous blood specimen / Unknown Venipuncture / Unknown 06/08/2024 7:36 AM EST 06/08/2024 11:14 AM EST us Damien Kay MD LAB BLOOD ORDERABLES Final Resul t [facility] [address] [place] [address], * (ABNORMAL) Complete blood count (06/08/2024 7:36 AM EST) [facility] Signature WBC 9.0 4.8 - 10.8 K/mcL LAB HEMETOLOGY METHOD 06/08/2024 11:39 AM EST [facility] RBC 3.40(L) 3.80 - 4.80 M/mcL LAB HEMETOLOGY METHOD 06/08/2024 11:39 AM [facility] Hemoglobin 8.7(L) 11.5 - 16.0 g/dL LAB HEMETOLOGY METHOD 06/08/2024 11:39 AM [facility] Hematocrit 28.2(L) 35.0 - 47.0 % LAB HEMETOLOGY METHOD 06/08/2024 11:39 AM [facility] MCV 83.7 79.0 - 98.0 FL LAB HEMETOLOGY METHOD 06/08/2024 11:39 AM [facility] MCH 25.8(L) 27.0 - 32.0 pcg LAB HEMETOLOGY METHOD 06/08/2024 11:39 AM [facility] MCHC 30.9(L) 32.0 - 37.0 g/dL LAB HEMETOLOGY METHOD 06/08/2024 11:39 AM [facility] RDW 22.4(H) 11.0 - 15.0 % LAB HEMETOLOGY METHOD 06/08/2024 11:39 AM [facility] Platelets 579(H) 130 - 400 K/mcL LAB HEMETOLOGY METHOD 06/08/2024 11:39 AM [facility] MPV 10.8 7.0 - 11.0 FL LAB HEMETOLOGY METHOD 06/08/2024 11:39 AM EST [facility] NRBC 0.0 <1.0 % LAB HEMETOLOGY METHOD 06/08/2024 11:39 AM EST [facility] NRBC Absolute 0.00 <0.10 K/mcL LAB HEMETOLOGY METHOD 06/08/2024 11:39 AM EST [facility] Blood Venous blood specimen / Unknown Venipuncture / Unknown 06/08/2024 7:36 AM EST 06/08/2024 11:14 AM EST us Damien Kay MD LAB BLOOD ORDERABLES Final Resul t [facility] [address] [place] [address], documented in this encounter Visit Diagnoses Diagnosis Unspecified atrial fibrillation (CMS/HCC V24, CMS/HCC V28) Type 2 diabetes mellitus without complications (CMS/HCC V24, CMS/HCC V28) Heart failure, unspecified (CMS/HCC V24, CMS/HCC V28) Heart failure, unspecified documented in this encounter Care Teams Thaw Shed Heater Tender Relationship Specialty Start Date End Date Damien Kay MD [address] [place] [address], [phone] PCP - General Family Medicine 07/05/24 documented as of this encounter
--- OUTSIDE RECORDS SUMMARY | 2025-01-24 09:48 | XMS_ITS | Encounter Summary ---
Author Organization [facility] Address [address] [place] [phone] Care Team Providers Care Hotel Security Officer Name Role Phone Damien Kay MD Primary Care Provider [phone] Encounter Details Date Type Department Care Team (Late st Contact Info) Description 08/09/2024 Lab Requisition [facility] - Main Lab 299 [facility] [place] [address] Damien Kay MD 38 [facility] [address] [place], [phone] Heart failure, unspecified (CMS/HCC V24, CMS/HCC [...] natriuretic peptide (08/10/2024 8:36 AM EDT) Pathologist [facility] BNP 869(H) <=100 pcg/mL LAB CHEMISTRY METHOD 08/10/2024 11:45 AM EDT [facility] Blood Venous blood specimen / Unknown Venipuncture / Unknown 08/10/2024 8:36 AM EDT 08/10/2024 10:45 AM EDT us Damien Kay MD LAB BLOOD ORDERABLES Final Resul t [facility] [address] [place] [address], [place] [phone] * Basic metabolic panel (08/10/2024 8:36 AM EDT) [facility] Sodium 138 133 - 145 mmol/L LAB CHEMISTRY METHOD 08/10/2024 12:03 PM [facility] Potassium 4.1 3.5 - 5.5 mmol/L LAB CHEMISTRY METHOD 08/10/2024 12:03 PM [facility] Chloride 107 96 - 110 mmol/L LAB CHEMISTRY METHOD 08/10/2024 12:03 PM [facility] CO2 27 21 - 32 mmol/L LAB CHEMISTRY METHOD 08/10/2024 12:03 PM [facility] Anion Gap 4 3 - 11 LAB CHEMISTRY METHOD 08/10/2024 12:03 PM [facility] Glucose 89 70 - 100 mg/dL LAB CHEMISTRY METHOD 08/10/2024 12:03 PM [facility] BUN 10 5 - 25 mg/dL LAB CHEMISTRY METHOD 08/10/2024 12:03 PM [facility] Creatinine 0.87 0.50 - 1.10 mg/dL LAB CHEMISTRY METHOD 08/10/2024 12:03 PM EDT [facility] eGFR 71 >=60 mL/min/1. 73m2 LAB CHEMISTRY METHOD 08/10/2024 12:03 PM EDT [facility] Comment:Calculation based on the Chronic Kidney Disease Epidemiology Collaboration (CKD-EPI) equation refit without adjustment for race. BUN/Creatinine Ratio 11.5 LAB CHEMISTRY METHOD 08/10/2024 12:03 PM EDT [facility] Calcium 8.6 8.5 - 10.5 mg/dL LAB CHEMISTRY METHOD 08/10/2024 12:03 PM EDT [facility] Blood Venous blood specimen / Unknown Venipuncture / Unknown 08/10/2024 8:36 AM EDT 08/10/2024 10:45 AM EDT us Damien Kay MD LAB BLOOD ORDERABLES Final Resul t [facility] [address] [place] [address], [place] [phone] * (ABNORMAL) Complete blood count (08/10/2024 8:36 AM EDT) WBC 6.8 4.8 - 10.8 K/mcL LAB HEMETOLOGY METHOD 08/10/2024 10:59 AM EDT [facility] RBC 2.90(L) 3.80 - 4.80 M/mcL LAB HEMETOLOGY METHOD 08/10/2024 10:59 AM EDT [facility] Hemoglobin 8.8(L) 11.5 - 16.0 g/dL LAB HEMETOLOGY METHOD 08/10/2024 10:59 AM T [facility] Hematocrit 27.8(L) 35.0 - 47.0 % LAB HEMETOLOGY METHOD 08/10/2024 10:59 AM EDT [facility] MCV 97.2 79.0 - 98.0 FL LAB HEMETOLOGY METHOD 08/10/2024 10:59 AM EDT [facility] MCH 30.8 27.0 - 32.0 pcg LAB HEMETOLOGY METHOD 08/10/2024 10:59 AM EDT [facility] MCHC 31.7(L) 32.0 - 37.0 g/dL LAB HEMETOLOGY METHOD 08/10/2024 10:59 AM EDT [facility] RDW 15.9(H) 11.0 - 15.0 % LAB HEMETOLOGY METHOD 08/10/2024 10:59 AM EDT [facility] Platelets 479(H) 130 - 400 K/mcL LAB HEMETOLOGY METHOD 08/10/2024 10:59 AM EDT [facility] MPV 10.9 7.0 - 11.0 FL LAB HEMETOLOGY METHOD 08/10/2024 10:59 AM EDT [facility] NRBC 0.0 <1.0 % LAB HEMETOLOGY METHOD 08/10/2024 10:59 AM EDT [facility] NRBC Absolute 0.00 <0.10 K/mcL LAB HEMETOLOGY METHOD 08/10/2024 10:59 AM EDT [facility] Blood Venous blood specimen / Unknown Venipuncture / Unknown 08/10/2024 8:36 AM EDT 08/10/2024 10:45 AM EDT us Damien Kay MD LAB BLOOD ORDERABLES Final Resul t [facility] [address] [place] [address], documented in this encounter Visit Diagnoses Diagnosis Heart failure, unspecified (CMS/HCC V24, CMS/HCC V28) Heart failure, unspecified Sepsis, unspecified organism (CMS/HCC V24, CMS/HCC V28) Hyperlipidemia, unspecified documented in this encounter Care Teams Hotel Security Officer Relationship Specialty Start Date End Date Damien Kay MD [address] [place] [address], [phone] PCP - General Family Medicine 07/05/24 documented as of this encounter
--- OUTSIDE RECORDS SUMMARY | 2025-01-24 09:48 | XMS_ITS | Encounter Summary ---
Author Organization [facility] Address [address] [place] [address] Care Team Providers Care Grill Chef Name Role Phone Damien Kay MD Primary Care Provider [phone] Encounter Details Date Type Department Care Team (Latest Contact Info) Description 06/28/2024 Lab Requisition [facility] - Main Lab 299 [facility] [place] [address] Damien Kay MD 38 [facility] 204 [place], [address] Heart failure, unspecified (CMS/HCC V24, CMS/HCC [...] CBC auto differential (06/29/2024 6:37 AM EST) [facility] WBC 9.5 4.8 - 10.8 K/mcL LAB HEMETOLOGY METHOD 06/29/2024 11:49 AM [facility] RBC 2.90(L) 3.80 - 4.80 M/mcL LAB HEMETOLOGY METHOD 06/29/2024 11:49 AM [facility] Hemoglobin 8.1(L) 11.5 - 16.0 g/dL LAB HEMETOLOGY METHOD 06/29/2024 11:49 AM [facility] Hematocrit 26.9(L) 35.0 - 47.0 % LAB HEMETOLOGY METHOD 06/29/2024 11:49 AM [facility] MCV 92.1 79.0 - 98.0 FL LAB HEMETOLOGY METHOD 06/29/2024 11:49 AM [facility] MCH 27.7 27.0 - 32.0 pcg LAB HEMETOLOGY METHOD 06/29/2024 11:49 AM [facility] MCHC 30.1(L) 32.0 - 37.0 g/dL LAB HEMETOLOGY METHOD 06/29/2024 11:49 AM [facility] RDW 26.9(H) 11.0 - 15.0 % LAB HEMETOLOGY METHOD 06/29/2024 11:49 AM [facility] Platelets 464(H) 130 - 400 K/mcL LAB HEMETOLOGY METHOD 06/29/2024 11:49 AM [facility] MPV 10.8 7.0 - 11.0 FL LAB HEMETOLOGY METHOD 06/29/2024 11:49 AM [facility] NRBC 0.0 <1.0 % LAB HEMETOLOGY METHOD 06/29/2024 11:49 AM [facility] NRBC Absolute 0.00 <0.10 K/mcL LAB HEMETOLOGY METHOD 06/29/2024 11:49 AM [facility] Neutrophils Relative 66.8 % LAB HEMETOLOGY METHOD 06/29/2024 11:49 AM [facility] Lymphocytes Relative 20.1 % LAB HEMETOLOGY METHOD 06/29/2024 11:49 AM [facility] Monocytes Relative 10.7 % LAB HEMETOLOGY METHOD 06/29/2024 11:49 AM [facility] Eosinophils Relative 0.8 % LAB HEMETOLOGY METHOD 06/29/2024 11:49 AM [facility] Basophils Relative 1.0 % LAB HEMETOLOGY METHOD 06/29/2024 11:49 AM [facility] Immature Granulocytes Relative 0.6 % LAB HEMETOLOGY METHOD 06/29/2024 11:49 AM [facility] Neutrophils Absolute 6.35 1.50 - 7.00 K/mcL LAB HEMETOLOGY METHOD 06/29/2024 11:49 AM [facility] Lymphocytes Absolute 1.92 1.00 - 5.00 K/mcL LAB HEMETOLOGY METHOD 06/29/2024 11:[address] [facility] Monocytes Absolute 1.02(H) 0.20 - 1.00 K/mcL LAB HEMETOLOGY METHOD 06/29/2024 11:[address] [facility] Eosinophils Absolute 0.08 0.00 - 0.50 K/[facility] LAB HEMETOLOGY METHOD 06/29/2024 11:[address] [facility] Basophils Absolute 0.10 0.00 - 0.20 K/[facility] LAB HEMETOLOGY METHOD 06/29/2024 11:[address] [facility] Immature Granulocytes Absolute 0.06(H) 0.00 - 0.03 K/[facility] LAB HEMETOLOGY METHOD 06/29/2024 11:[address] [facility] Blood Venous blood specimen / Unknown Venipuncture / Unknown 06/29/2024 6:37 AM EST 06/29/2024 10:55 AM EST us Damien Kay MD LAB BLOOD ORDERABLES Final Resul t Performing Organization Address City/[facility]/ZIP Co de Phone Number [facility] [address] [place] [address], * (ABNORMAL) B-type natriuretic peptide (06/29/2024 6:37 AM EST) BNP 328(H) <=100 pcg/mL LAB CHEMISTRY METHOD 06/29/2024 12:[address] [facility] Blood Venous blood specimen / Unknown Venipuncture / Unknown 06/29/2024 6:37 AM EST 06/29/2024 10:55 AM EST us Damien Kay MD LAB BLOOD ORDERABLES Final Resul t [facility] [address] [place] [address], [place] [phone] * (ABNORMAL) Basic metabolic panel (06/29/2024 6:37 AM EST) Sodium 141 133 - 145 mmol/L LAB CHEMISTRY METHOD 06/29/2024 11:57 AM [facility] Potassium 4.7 3.5 - 5.5 mmol/L LAB CHEMISTRY METHOD 06/29/2024 11:57 AM [facility] Chloride 109 96 - 110 mmol/L LAB CHEMISTRY METHOD 06/29/2024 11:57 AM [facility] CO2 26 21 - 32 mmol/L LAB CHEMISTRY METHOD 06/29/2024 11:57 AM [facility] Anion Gap 6 3 - 11 LAB CHEMISTRY METHOD 06/29/2024 11:57 AM [facility] Glucose 83 70 - 100 mg/dL LAB CHEMISTRY METHOD 06/29/2024 11:57 AM [facility] BUN 14 5 - 25 mg/dL LAB CHEMISTRY METHOD 06/29/2024 11:57 AM [facility] Creatinine 1.02 0.50 - 1.10 mg/dL LAB CHEMISTRY METHOD 06/29/2024 11:57 AM [facility] eGFR 59(L) >=60 mL/min/1. 73m2 LAB CHEMISTRY METHOD 06/29/2024 11:57 AM [facility] Comment:Calculation based on the Chronic Kidney Disease Epidemiology Collaboration (CKD-EPI) equation refit without adjustment for race. BUN/Creatinine Ratio 13.7 LAB CHEMISTRY METHOD 06/29/2024 11:57 AM [facility] Calcium 8.8 8.5 - 10.5 mg/dL LAB CHEMISTRY METHOD 06/29/2024 11:57 AM [facility] Blood Venous blood specimen / Unknown Venipuncture / Unknown 06/29/2024 6:37 AM EST 06/29/2024 10:55 AM EST us Damien Kay MD LAB BLOOD ORDERABLES Final Resul t [facility] [address] [place] [address], [place] [phone] * (ABNORMAL) Complete blood count (06/29/2024 6:37 AM EST) WBC 9.5 4.8 - 10.8 K/mcL LAB HEMETOLOGY METHOD 06/29/2024 11:49 AM [facility] RBC 2.90(L) 3.80 - 4.80 M/mcL LAB HEMETOLOGY METHOD 06/29/2024 11:49 AM [facility] Hemoglobin 8.1(L) 11.5 - 16.0 g/dL LAB HEMETOLOGY METHOD 06/29/2024 11:49 AM [facility] Hematocrit 26.9(L) 35.0 - 47.0 % LAB HEMETOLOGY METHOD 06/29/2024 11:49 AM [facility] MCV 92.1 79.0 - 98.0 FL LAB HEMETOLOGY METHOD 06/29/2024 11:49 AM [facility] MCH 27.7 27.0 - 32.0 pcg LAB HEMETOLOGY METHOD 06/29/2024 11:49 AM [facility] MCHC 30.1(L) 32.0 - 37.0 g/dL LAB HEMETOLOGY METHOD 06/29/2024 11:49 AM [facility] RDW 26.9(H) 11.0 - 15.0 % LAB HEMETOLOGY METHOD 06/29/2024 11:49 AM [facility] Platelets 464(H) 130 - 400 K/mcL LAB HEMETOLOGY METHOD 06/29/2024 11:49 AM [facility] MPV 10.8 7.0 - 11.0 FL LAB HEMETOLOGY METHOD 06/29/2024 11:[address] [facility] NRBC 0.0 <1.0 % LAB HEMETOLOGY METHOD 06/29/2024 11:[address] [facility] NRBC Absolute 0.00 <0.10 K/mcL LAB HEMETOLOGY METHOD 06/29/2024 11:[address] [facility] Blood Venous blood specimen / Unknown Venipuncture / Unknown 06/29/2024 6:37 AM EST 06/29/2024 10:55 AM EST us Damien Kay MD LAB BLOOD ORDERABLES Final Resul t [facility] [address] [place] [address], documented in this encounter Visit Diagnoses Diagnosis Heart failure, unspecified (CMS/HCC V24, CMS/HCC V28) Heart failure, unspecified Sepsis, unspecified organism (CMS/HCC V24, CMS/HCC V28) Hyperlipidemia, unspecified Type 2 diabetes mellitus without complications (CMS/HCC V24, CMS/HCC V28) Other cerebrovascular disease documented in this encounter Care Teams Grill Chef Relationship Specialty Start Date End Date Damien Kay MD [address] [place] [address], [phone] PCP - General Family Medicine 07/05/24 documented as of this encounter
--- OUTSIDE RECORDS SUMMARY | 2025-01-24 09:48 | XMS_ITS | Encounter Summary ---
Author Organization [facility] Address [address] [place] [phone] Care Team Providers Care Tool And Die Machinist Name Role Phone Damien Kay MD Primary Care Provider [phone] Encounter Details Date Type Department Care Team (Late st Contact Info) Description 09/06/2024 Lab Requisition [facility] - Main Lab 299 [facility] [place] [address] Damien Kay MD 38 [facility] 204 [place], [address] Heart failure, unspecified (CMS/HCC V24, CMS/HCC [...] 09/07/2024 6:05 AM EDT Heart failure, unspecified ([facility] V24, [facility] V28) Sepsis, unspecified organism ([facility] V24, [facility] V28) Hyperlipidemia, unspecified documented in this encounter Results * (ABNORMAL) B-type natriuretic peptide (09/07/2024 6:05 AM EDT) Pathologist [facility] BNP 1,334(H) <=100 pcg/mL LAB CHEMISTRY METHOD 09/07/2024 12:40 PM EDT [facility] Blood Venous blood specimen / Unknown Venipuncture / Unknown 09/07/2024 6:05 AM EDT 09/07/2024 11:28 AM EDT us Damien Kay MD LAB BLOOD ORDERABLES Final Resul t [facility] [address] [place] [address], [place] [phone] * Basic metabolic panel (09/07/2024 6:05 AM EDT) [facility] Sodium 139 133 - 145 mmol/L LAB CHEMISTRY METHOD 09/07/2024 12:17 PM EDT [facility] Potassium 3.8 3.5 - 5.5 mmol/L LAB CHEMISTRY METHOD 09/07/2024 12:17 PM EDT [facility] Chloride 108 96 - 110 mmol/L LAB CHEMISTRY METHOD 09/07/2024 12:17 PM T [facility] CO2 28 21 - 32 mmol/L LAB CHEMISTRY METHOD 09/07/2024 12:17 PM T [facility] Anion Gap 3 3 - 11 LAB CHEMISTRY METHOD 09/07/2024 12:17 PM [facility] Glucose 79 70 - 100 mg/dL LAB CHEMISTRY METHOD 09/07/2024 12:17 PM T [facility] BUN 14 5 - 25 mg/dL LAB CHEMISTRY METHOD 09/07/2024 12:17 PM EDT [facility] Creatinine 0.98 0.50 - 1.10 mg/dL LAB CHEMISTRY METHOD 09/07/2024 12:17 PM EDT [facility] eGFR 61 >=60 mL/min/1. 73m2 LAB CHEMISTRY METHOD 09/07/2024 12:17 PM EDT [facility] Comment:Calculation based on the Chronic Kidney Disease Epidemiology Collaboration (CKD-EPI) equation refit without adjustment for race. BUN/Creatinine Ratio 14.3 LAB CHEMISTRY METHOD 09/07/2024 12:17 PM EDT [facility] Calcium 8.6 8.5 - 10.5 mg/dL LAB CHEMISTRY METHOD 09/07/2024 12:17 PM EDT [facility] Blood Venous blood specimen / Unknown Venipuncture / Unknown 09/07/2024 6:05 AM EDT 09/07/2024 11:30 AM EDT us Damien Kay MD LAB BLOOD ORDERABLES Final Resul t [facility] [address] [place] [address], [place] [phone] * (ABNORMAL) Complete blood count (09/07/2024 6:05 AM EDT) WBC 7.2 4.8 - 10.8 K/mcL LAB HEMETOLOGY METHOD 09/07/2024 12:30 PM EDT [facility] RBC 2.20(L) 3.80 - 4.80 M/mcL LAB HEMETOLOGY METHOD 09/07/2024 12:30 PM EDT [facility] Hemoglobin 6.1(LL) 11.5 - 16.0 g/dL LAB HEMETOLOGY METHOD 09/07/2024 12:30 PM EDT [facility] Hematocrit 20.8(L) 35.0 - 47.0 % LAB HEMETOLOGY METHOD 09/07/2024 12:30 PM EDT [facility] MCV 95.9 79.0 - 98.0 FL LAB HEMETOLOGY METHOD 09/07/2024 12:30 PM EDT [facility] MCH 28.8 27.0 - 32.0 pcg LAB HEMETOLOGY METHOD 09/07/2024 12:30 PM EDT [facility] MCHC 30.0(L) 32.0 - 37.0 g/dL LAB HEMETOLOGY METHOD 09/07/2024 12:30 PM EDT [facility] RDW 16.5(H) 11.0 - 15.0 % LAB HEMETOLOGY METHOD 09/07/2024 12:30 PM EDT [facility] Platelets 469(H) 130 - 400 K/mcL LAB HEMETOLOGY METHOD 09/07/2024 12:30 PM EDT [facility] MPV 10.7 7.0 - 11.0 FL LAB HEMETOLOGY METHOD 09/07/2024 12:30 PM EDT [facility] NRBC 0.0 <1.0 % LAB HEMETOLOGY METHOD 09/07/2024 12:30 PM EDT [facility] NRBC Absolute 0.00 <0.10 K/mcL LAB HEMETOLOGY METHOD 09/07/2024 12:30 PM EDT [facility] Blood Venous blood specimen / Unknown Venipuncture / Unknown 09/07/2024 6:05 AM EDT 09/07/2024 11:29 AM EDT us Damien Kay MD LAB BLOOD ORDERABLES Final Resul t [facility] [address] [place] [address], documented in this encounter Visit Diagnoses Diagnosis Heart failure, unspecified ([facility] V24, [facility] V28) Heart failure, unspecified Sepsis, unspecified organism ([facility] V24, [facility] V28) Hyperlipidemia, unspecified documented in this encounter Care Teams Tool And Die Machinist Relationship Specialty Start Date End Date Damien Kay MD [address] [place] [address], [phone] PCP - General Family Medicine 07/05/24 documented as of this encounter
--- OUTSIDE RECORDS SUMMARY | 2025-01-24 09:48 | XMS_ITS | Encounter Summary ---
Author Organization [facility] Address [address] [place] [phone] Care Team Providers Care Game Trapper Name Role Phone Damien Kay MD Primary Care Provider [phone] Encounter Details Date Type Department Care Team (Late st Contact Info) Description 05/31/2024 Lab Requisition [facility] - Main Lab 299 [facility] [employer] [place] [address] Damien Kay MD 38 [facility] 204 [place], [phone] Unspecified atrial fibrillation (CMS/HCC V24, CMS/HCC [...] mmol/L LAB CHEMISTRY METHOD 06/01/2024 8:43 AM [facility] Potassium 3.9 3.5 - 5.5 mmol/L LAB CHEMISTRY METHOD 06/01/2024 8:43 AM [facility] Chloride 107 96 - 110 mmol/L LAB CHEMISTRY METHOD 06/01/2024 8:43 AM [facility] CO2 27 21 - 32 mmol/L LAB CHEMISTRY METHOD 06/01/2024 8:43 AM [facility] Anion Gap 7 3 - 11 LAB CHEMISTRY METHOD 06/01/2024 8:43 AM [facility] Glucose 104(H) 70 - 100 mg/dL LAB CHEMISTRY METHOD 06/01/2024 8:43 AM [facility] BUN 25 5 - 25 mg/dL LAB CHEMISTRY METHOD 06/01/2024 8:43 AM [facility] Creatinine 1.46(H) 0.50 - 1.10 mg/dL LAB CHEMISTRY METHOD 06/01/2024 8:43 AM [facility] eGFR 38(L) >=60 mL/min/1. 73m2 LAB CHEMISTRY METHOD 06/01/2024 8:43 AM [facility] Comment:Calculation based on the Chronic Kidney Disease Epidemiology Collaboration (CKD-EPI) equation refit without adjustment for race. BUN/Creatinine Ratio 17.1 LAB CHEMISTRY METHOD 06/01/2024 8:43 AM [facility] Calcium 8.4(L) 8.5 - 10.5 mg/dL LAB CHEMISTRY METHOD 06/01/2024 8:43 AM [facility] Blood Venous blood specimen / Unknown Venipuncture / Unknown 06/01/2024 5:17 AM EST 06/01/2024 8:06 AM EST us Damien Kay MD LAB BLOOD ORDERABLES Final Resul t [facility] [address] [place] [address], * (ABNORMAL) Complete blood count (06/01/2024 5:17 AM EST) WBC 9.3 4.8 - 10.8 K/mcL LAB HEMETOLOGY METHOD 06/01/2024 8:22 AM [facility] RBC 3.70(L) 3.80 - 4.80 M/mcL LAB HEMETOLOGY METHOD 06/01/2024 8:22 AM [facility] Hemoglobin 9.5(L) 11.5 - 16.0 g/dL LAB HEMETOLOGY METHOD 06/01/2024 8:22 AM [facility] Hematocrit 31.2(L) 35.0 - 47.0 % LAB HEMETOLOGY METHOD 06/01/2024 8:22 AM [facility] MCV 84.3 79.0 - 98.0 FL LAB HEMETOLOGY METHOD 06/01/2024 8:22 AM [facility] MCH 25.7(L) 27.0 - 32.0 pcg LAB HEMETOLOGY METHOD 06/01/2024 8:22 AM [facility] MCHC 30.4(L) 32.0 - 37.0 g/dL LAB HEMETOLOGY METHOD 06/01/2024 8:22 AM [facility] RDW 20.8(H) 11.0 - 15.0 % LAB HEMETOLOGY METHOD 06/01/2024 8:22 AM [facility] Platelets 532(H) 130 - 400 K/mcL LAB HEMETOLOGY METHOD 06/01/2024 8:22 AM [facility] MPV 11.7(H) 7.0 - 11.0 FL LAB HEMETOLOGY METHOD 06/01/2024 8:22 AM EST [facility] NRBC 0.0 <1.0 % LAB HEMETOLOGY METHOD 06/01/2024 8:22 AM EST [facility] NRBC Absolute 0.00 <0.10 K/mcL LAB HEMETOLOGY METHOD 06/01/2024 8:22 AM EST [facility] Blood Venous blood specimen / Unknown Venipuncture / Unknown 06/01/2024 5:17 AM EST 06/01/2024 8:06 AM EST us Damien Kay MD LAB BLOOD ORDERABLES Final Resul t [facility] [address] [place] [address], documented in this encounter Visit Diagnoses Diagnosis Unspecified atrial fibrillation (CMS/HCC V24, CMS/HCC V28) Type 2 diabetes mellitus without complications (CMS/HCC V24, CMS/HCC V28) Heart failure, unspecified (CMS/HCC V24, CMS/HCC V28) Heart failure, unspecified documented in this encounter Care Teams Game Trapper Relationship Specialty Start Date End Date Damien Kay MD [address] [place] [address], [phone] PCP - General Family Medicine 07/05/24 documented as of this encounter
--- OUTSIDE RECORDS SUMMARY | 2025-01-24 09:48 | XMS_ITS | Encounter Summary ---
Author Organization [facility] Address [address] [place] [phone] Care Team Providers Care Self Sealing Fuel Tank Builder Name Role Phone Damien Kay MD Primary Care Provider [phone] Encounter Details Date Type Department Care Team (Late st Contact Info) Description 04/11/2024 Lab Requisition [facility] - Main Lab 299 [facility] [place] [address] Damien Kay MD 38 [facility] [address] [place], [phone] Type 2 diabetes mellitus without complications [...] K/mcL LAB HEMETOLOGY METHOD 04/11/2024 10:44 AM [facility] RBC 3.70(L) 3.80 - 4.80 M/mcL LAB HEMETOLOGY METHOD 04/11/2024 10:44 AM [facility] Hemoglobin 9.5(L) 11.5 - 16.0 g/dL LAB HEMETOLOGY METHOD 04/11/2024 10:44 AM [facility] Hematocrit 33.0(L) 35.0 - 47.0 % LAB HEMETOLOGY METHOD 04/11/2024 10:44 AM [facility] MCV 88.7 79.0 - 98.0 FL LAB HEMETOLOGY METHOD 04/11/2024 10:44 AM [facility] MCH 25.5(L) 27.0 - 32.0 pcg LAB HEMETOLOGY METHOD 04/11/2024 10:44 AM [facility] MCHC 28.8(L) 32.0 - 37.0 g/dL LAB HEMETOLOGY METHOD 04/11/2024 10:44 AM [facility] LAB RDW 17.0(H) 11.0 - 15.0 % LAB HEMETOLOGY METHOD 04/11/2024 10:44 AM [facility] Platelets 469(H) 130 - 400 K/mcL LAB HEMETOLOGY METHOD 04/11/2024 10:44 AM [facility] LAB MPV 11.2(H) 7.0 - 11.0 FL LAB HEMETOLOGY METHOD 04/11/2024 10:44 AM [facility] NRBC 0.0 <1.0 % LAB HEMETOLOGY METHOD 04/11/2024 10:44 AM [facility] NRBC Absolute 0.00 <0.10 K/mcL LAB HEMETOLOGY METHOD 04/11/2024 10:44 AM [facility] Neutrophils Relative 71.8 % LAB HEMETOLOGY METHOD 04/11/2024 10:44 AM [facility] Lymphocytes Relative 17.7 % LAB HEMETOLOGY METHOD 04/11/2024 10:44 AM [facility] Monocytes Relative 8.5 % LAB HEMETOLOGY METHOD 04/11/2024 10:44 AM [facility] Eosinophils Relative 0.9 % LAB HEMETOLOGY METHOD 04/11/2024 10:44 AM [facility] Basophils Relative 0.7 % LAB HEMETOLOGY METHOD 04/11/2024 10:44 AM [facility] Immature Granulocytes Relative 0.4 % LAB HEMETOLOGY METHOD 04/11/2024 10:44 AM [facility] Neutrophils Absolute 7.90(H) 1.50 - 7.00 K/mcL LAB HEMETOLOGY METHOD 04/11/2024 10:44 AM [facility] Lymphocytes Absolute 1.95 1.00 - 5.00 K/mcL LAB HEMETOLOGY METHOD 04/11/2024 10:44 AM [facility] Monocytes Absolute 0.94 0.20 - 1.00 K/mcL LAB HEMETOLOGY METHOD 04/11/2024 10:44 AM [facility] Eosinophils Absolute 0.10 0.00 - 0.50 K/mcL LAB HEMETOLOGY METHOD 04/11/2024 10:44 AM [facility] Basophils Absolute 0.08 0.00 - 0.20 K/mcL LAB HEMETOLOGY METHOD 04/11/2024 10:44 AM [facility] Immature Granulocytes Absolute 0.04(H) 0.00 - 0.03 K/mcL LAB HEMETOLOGY METHOD 04/11/2024 10:44 AM [facility] Blood Venous blood specimen / Unknown Venipuncture / Unknown 04/11/2024 6:56 AM EST 04/11/2024 9:41 AM EST us Damien Kay MD LAB BLOOD ORDERABLES Final Resul t [facility] [address] [place] [address], [place] [phone] * (ABNORMAL) Comprehensive metabolic panel (04/11/2024 6:56 AM EST) Sodium 144 133 - 145 mmol/L LAB CHEMISTRY METHOD 04/11/2024 12:18 PM [facility] Potassium 3.9 3.5 - 5.5 mmol/L LAB CHEMISTRY METHOD 04/11/2024 12:18 PM [facility] Chloride 109 96 - 110 mmol/L LAB CHEMISTRY METHOD 04/11/2024 12:18 PM [facility] CO2 26 21 - 32 mmol/L LAB CHEMISTRY METHOD 04/11/2024 12:18 PM [facility] Anion Gap 9 3 - 11 LAB CHEMISTRY METHOD 04/11/2024 12:18 PM [facility] Glucose 107(H) 70 - 100 mg/dL LAB CHEMISTRY METHOD 04/11/2024 12:18 PM [facility] BUN 19 5 - 25 mg/dL LAB CHEMISTRY METHOD 04/11/2024 12:18 PM [facility] Creatinine 1.13(H) 0.50 - 1.10 mg/dL LAB CHEMISTRY METHOD 04/11/2024 12:18 PM [facility] eGFR 52(L) >=60 mL/min/1. 73m2 LAB CHEMISTRY METHOD 04/11/2024 12:18 PM [facility] Comment:Calculation based on the Chronic Kidney Disease Epidemiology Collaboration (CKD-EPI) equation refit without adjustment for race. BUN/Creatinine Ratio 16.8 LAB CHEMISTRY METHOD 04/11/2024 12:18 PM [facility] Calcium 9.5 8.5 - 10.5 mg/dL LAB CHEMISTRY METHOD 04/11/2024 12:18 PM [facility] AST (SGOT) 32 10 - 42 unit/L LAB CHEMISTRY METHOD 04/11/2024 12:18 PM [facility] ALT (SGPT) 25 10 - 60 unit/L LAB CHEMISTRY METHOD 04/11/2024 12:18 PM [facility] Alkaline Phosphatase 72 42 - 121 unit/L LAB CHEMISTRY METHOD 04/11/2024 12:18 PM [facility] Total Protein 5.8(L) 6.0 - 8.0 g/dL LAB CHEMISTRY METHOD 04/11/2024 12:18 PM [facility] Albumin 2.7(L) 3.2 - 5.0 g/dL LAB CHEMISTRY METHOD 04/11/2024 12:18 PM [facility] Total Bilirubin 0.6 0.0 - 1.4 mg/dL LAB CHEMISTRY METHOD 04/11/2024 12:18 PM [facility] Blood Venous blood specimen / Unknown Venipuncture / Unknown 04/11/2024 6:56 AM EST 04/11/2024 9:41 AM EST us Damien Kay MD LAB BLOOD ORDERABLES Final Resul t [facility] [address] [place] [address], documented in this encounter Visit Diagnoses Diagnosis Type 2 diabetes mellitus without complications (CMS/HCC V24, CMS/HCC V28) documented in this encounter Care Teams Self Sealing Fuel Tank Builder Relationship Specialty Start Date End Date Damien Kay MD [address] [place] [address], [phone] PCP - General Family Medicine 07/05/24 documented as of this encounter
--- OUTSIDE RECORDS SUMMARY | 2025-01-24 09:48 | XMS_ITS | Encounter Summary ---
Author Organization [facility] Address [address] [place] [address] Care Team Providers Care Nurse Navigator Name Role Phone Damien Kay MD Primary Care Provider [phone] Encounter Details Date Type Department Care Team (Latest Contact Info) Description 07/12/2024 Lab Requisition [facility] - Main Lab 299 [facility] [place] [address] Damien Kay MD 38 [facility] [address] [place], [phone] Heart failure, unspecified (CMS/HCC V24, CMS/HCC [...] CBC auto differential (07/13/2024 5:39 AM EST) [facility] WBC 9.0 4.8 - 10.8 K/mcL LAB HEMETOLOGY METHOD 07/13/2024 10:29 AM [facility] RBC 2.90(L) 3.80 - 4.80 M/mcL LAB HEMETOLOGY METHOD 07/13/2024 10:29 AM [facility] Hemoglobin 8.6(L) 11.5 - 16.0 g/dL LAB HEMETOLOGY METHOD 07/13/2024 10:29 AM [facility] Hematocrit 27.7(L) 35.0 - 47.0 % LAB HEMETOLOGY METHOD 07/13/2024 10:29 AM [facility] MCV 96.2 79.0 - 98.0 FL LAB HEMETOLOGY METHOD 07/13/2024 10:29 AM [facility] MCH 29.9 27.0 - 32.0 pcg LAB HEMETOLOGY METHOD 07/13/2024 10:29 AM [facility] MCHC 31.0(L) 32.0 - 37.0 g/dL LAB HEMETOLOGY METHOD 07/13/2024 10:29 AM [facility] RDW 21.9(H) 11.0 - 15.0 % LAB HEMETOLOGY METHOD 07/13/2024 10:29 AM [facility] Platelets 558(H) 130 - 400 K/mcL LAB HEMETOLOGY METHOD 07/13/2024 10:29 AM [facility] MPV 10.5 7.0 - 11.0 FL LAB HEMETOLOGY METHOD 07/13/2024 10:29 AM [facility] NRBC 0.0 <1.0 % LAB HEMETOLOGY METHOD 07/13/2024 10:29 AM [facility] NRBC Absolute 0.00 <0.10 K/mcL LAB HEMETOLOGY METHOD 07/13/2024 10:29 AM [facility] Neutrophils Relative 61.4 % LAB HEMETOLOGY METHOD 07/13/2024 10:29 AM [facility] Lymphocytes Relative 26.0 % LAB HEMETOLOGY METHOD 07/13/2024 10:29 AM [facility] Monocytes Relative 10.0 % LAB HEMETOLOGY METHOD 07/13/2024 10:29 AM [facility] Eosinophils Relative 1.4 % LAB HEMETOLOGY METHOD 07/13/2024 10:29 AM [facility] Basophils Relative 0.9 % LAB HEMETOLOGY METHOD 07/13/2024 10:29 AM [facility] Immature Granulocytes Relative 0.3 % LAB HEMETOLOGY METHOD 07/13/2024 10:29 AM [facility] Neutrophils Absolute 5.52 1.50 - 7.00 K/mcL LAB HEMETOLOGY METHOD 07/13/2024 10:29 AM [facility] Lymphocytes Absolute 2.34 1.00 - 5.00 K/mcL LAB HEMETOLOGY METHOD 07/13/2024 10:29 AM [facility] Monocytes Absolute 0.90 0.20 - 1.00 K/mcL LAB HEMETOLOGY METHOD 07/13/2024 10:29 AM EST [facility] Eosinophils Absolute 0.13 0.00 - 0.50 K/[facility] LAB HEMETOLOGY METHOD 07/13/2024 10:29 AM EST [facility] Basophils Absolute 0.08 0.00 - 0.20 K/[facility] LAB HEMETOLOGY METHOD 07/13/2024 10:29 AM EST [facility] Immature Granulocytes Absolute 0.03 0.00 - 0.03 K/[facility] LAB HEMETOLOGY METHOD 07/13/2024 10:29 AM EST [facility] Blood Venous blood specimen / Unknown Venipuncture / Unknown 07/13/2024 5:39 AM EST 07/13/2024 9:58 AM EST Damien Kay MD LAB BLOOD ORDERABLES Final Resul t Performing Organization Address City/[facility]/ZIP Co de Phone Number [facility] [address] [place] [address], [place] [phone] * (ABNORMAL) B-type natriuretic peptide (07/13/2024 5:39 AM EST) Pathologist [facility] BNP 308(H) <=100 pcg/mL LAB CHEMISTRY METHOD 07/13/2024 11:14 AM EST [facility] Blood Venous blood specimen / Unknown Venipuncture / Unknown 07/13/2024 5:39 AM EST 07/13/2024 9:58 AM EST Damien Kay MD LAB BLOOD ORDERABLES Final Resul t [facility] [address] [place] [address], [place] [phone] * (ABNORMAL) Basic metabolic panel (07/13/2024 5:39 AM EST) Pathologist [facility] Sodium 140 133 - 145 mmol/L LAB CHEMISTRY METHOD 07/13/2024 10:41 AM [facility] Potassium 3.5 3.5 - 5.5 mmol/L LAB CHEMISTRY METHOD 07/13/2024 10:41 AM [facility] Chloride 106 96 - 110 mmol/L LAB CHEMISTRY METHOD 07/13/2024 10:41 AM [facility] CO2 27 21 - 32 mmol/L LAB CHEMISTRY METHOD 07/13/2024 10:41 AM [facility] Anion Gap 7 3 - 11 LAB CHEMISTRY METHOD 07/13/2024 10:41 AM [facility] Glucose 76 70 - 100 mg/dL LAB CHEMISTRY METHOD 07/13/2024 10:41 AM [facility] BUN 11 5 - 25 mg/dL LAB CHEMISTRY METHOD 07/13/2024 10:41 AM [facility] Creatinine 0.80 0.50 - 1.10 mg/dL LAB CHEMISTRY METHOD 07/13/2024 10:41 AM [facility] eGFR 78 >=60 mL/min/1. 73m2 LAB CHEMISTRY METHOD 07/13/2024 10:41 AM [facility] Comment:Calculation based on the Chronic Kidney Disease Epidemiology Collaboration (CKD-EPI) equation refit without adjustment for race. BUN/Creatinine Ratio 13.8 LAB CHEMISTRY METHOD 07/13/2024 10:41 AM [facility] Calcium 8.4(L) 8.5 - 10.5 mg/dL LAB CHEMISTRY METHOD 07/13/2024 10:41 AM [facility] Blood Venous blood specimen / Unknown Venipuncture / Unknown 07/13/2024 5:39 AM EST 07/13/2024 9:58 AM EST us Damien Kay MD LAB BLOOD ORDERABLES Final Resul t [facility] [address] [place] [address], documented in this encounter Visit Diagnoses Diagnosis Heart failure, unspecified ([facility] V24, [facility] V28) Heart failure, unspecified Sepsis, unspecified organism ([facility] V24, [facility] V28) Hyperlipidemia, unspecified Type 2 diabetes mellitus without complications ([facility] V24, [facility] V28) Other cerebrovascular disease documented in this encounter Care Teams Nurse Navigator Relationship Specialty Start Date End Date Damien Kay MD [address] [place] [address], [phone] PCP - General Family Medicine 07/05/24 documented as of this encounter
--- OUTSIDE RECORDS SUMMARY | 2025-01-24 09:48 | XMS_ITS | Clinical Summary ---
Author Organization [address] Address [address] [place] [address] Phone Care Team Providers Care Whiting Can Worker Name Role Phone Damien Kay MD Primary Care Provider [phone] Social History Tobacco Use Types Packs/Day Years Used Date Smoking Tobacco: Never Assessed Comments Unknown Sex and Gender Information Value Date Recorded Sex Assigned at Not on file Legal Sex Female 9:43 AM EST Gender Identity Not on file Sexual Orientation Not on file Plan of Treatment Health Maintenance Due Date Last Done Comments Breast Cancer Screening 1950 DTaP,Tdap,and Td Vaccines (1 - Tdap) 08/27/1970 Pneumococcal Vaccine: 50+ Ye ars (1 of 2 - PCV) 08/27/1970 Zoster Vaccines (1 of 2) 08/27/2001 Colorectal Cancer Screening: Colonoscopy 04/20/2022 Falls Risk Assessment 04/20/2022 Hepatitis C Screening 04/20/2022 Medicare Annual Wellness Visit 04/20/2022 Osteoporosis Screening (Bone Density Screening) 04/20/2022 Social Influencers of Health Screening 04/20/2022 Depression Screening 05/18/2024 COVID-19 Vaccine ( - 2023-2 5 season) 2025 Influenza Vaccine (#1) 2025 RSV Immunization Adult Patie nts (1 - 1-dose 75+ series) 08/27/2026 Cholesterol [...] to complete this topic RSV Immunization Patients Un samantha 20 months Aged Out No longer eligible b ased on patient's age to complete this topic Varicella Vaccines Aged Out No longer eligible based on patient's age to complete this topic Procedures Procedure Name Priority Date/Time Associated Diagnosis Comments LIPID PANEL WITH REFLEX TO DIRECT LDL Routine 08/17/2024 8:38 AM EDT Type 2 diabetes mellitus without complications Unspecified atrial fibrillation (CMS/HCC) Anemia, unspecified from Last 3 Months or Most Recently Relevant to Health Maintenance Results * Lipid panel with reflex to direct LDL (08/17/2024 8:38 AM EDT) Cholesterol 118 0 - 200 mg/dL LAB CHEMISTRY METHOD 08/17/2024 12:[address] [facility] Triglycerides 90 0 - 150 mg/dL LAB CHEMISTRY METHOD 08/17/2024 12:[address] [facility] HDL 54 >=40 mg/dL LAB CHEMISTRY METHOD 08/17/2024 12:[address] [facility] LDL Calculated 46 0 - 100 mg/dL LAB CHEMISTRY METHOD 08/17/2024 12:[address] [facility] VLDL Cholesterol Moi 18 mg/dL LAB CHEMISTRY METHOD 08/17/2024 12:[address] [facility] Non HDL Chol. (LDL+VLDL) 64 <145 mg/dL LAB CHEMISTRY METHOD 08/17/2024 12:[address] [facility] Chol/HDL Ratio 2.2 0.0 - 4.4 LAB CHEMISTRY METHOD 08/17/2024 12:[address] [facility] Blood Venous blood specimen / Unknown Venipuncture / Unknown 08/17/2024 8:38 AM EDT 08/17/2024 12:11 PM EDT us Damien Kay MD LAB BLOOD ORDERABLES Final Resul t [facility] [address] [place] [address], [place] [phone] from Last 3 Months or Most Recently Relevant to Health Maintenance Insurance [place] Care Teams Whiting Can Worker Relationship Specialty Start Date End Date Damien Kay MD [address] [place] [address], [phone] PCP - General Family Medicine 07/05/24
--- OUTSIDE RECORDS SUMMARY | 2025-01-24 09:48 | XMS_ITS | Encounter Summary ---
Author Organization [facility] Address [address] [place] [phone] Care Team Providers Care County Home Demonstrator Name Role Phone Damien Kay MD Primary Care Provider [phone] Encounter Details Date Type Department Care Team (Latest Contact Info) Description 07/19/2024 Lab Requisition [facility] - Main Lab 299 [facility] [place] [address] Damien Kay MD 38 [facility] [address] [place], [phone] Heart failure, unspecified (CMS/HCC V24, CMS/HCC [...] CBC auto differential (07/20/2024 2:13 PM EST) [facility] WBC 7.9 4.8 - 10.8 K/mcL LAB HEMETOLOGY METHOD 07/20/2024 3:15 PM [facility] RBC 3.40(L) 3.80 - 4.80 M/mcL LAB HEMETOLOGY METHOD 07/20/2024 3:15 PM [facility] Hemoglobin 10.3(L) 11.5 - 16.0 g/dL LAB HEMETOLOGY METHOD 07/20/2024 3:15 PM [facility] Hematocrit 32.2(L) 35.0 - 47.0 % LAB HEMETOLOGY METHOD 07/20/2024 3:15 PM [facility] MCV 94.7 79.0 - 98.0 FL LAB HEMETOLOGY METHOD 07/20/2024 3:15 PM [facility] MCH 30.3 27.0 - 32.0 pcg LAB HEMETOLOGY METHOD 07/20/2024 3:15 PM [facility] MCHC 32.0 32.0 - 37.0 g/dL LAB HEMETOLOGY METHOD 07/20/2024 3:15 PM [facility] RDW 19.0(H) 11.0 - 15.0 % LAB HEMETOLOGY METHOD 07/20/2024 3:15 PM [facility] Platelets 622(H) 130 - 400 K/mcL LAB HEMETOLOGY METHOD 07/20/2024 3:15 PM [facility] MPV 10.8 7.0 - 11.0 FL LAB HEMETOLOGY METHOD 07/20/2024 3:15 PM [facility] NRBC 0.0 <1.0 % LAB HEMETOLOGY METHOD 07/20/2024 3:15 PM [facility] NRBC Absolute 0.00 <0.10 K/mcL LAB HEMETOLOGY METHOD 07/20/2024 3:15 PM [facility] Neutrophils Relative 63.1 % LAB HEMETOLOGY METHOD 07/20/2024 3:15 PM [facility] Lymphocytes Relative 26.1 % LAB HEMETOLOGY METHOD 07/20/2024 3:15 PM [facility] Monocytes Relative 8.3 % LAB HEMETOLOGY METHOD 07/20/2024 3:15 PM [facility] Eosinophils Relative 1.0 % LAB HEMETOLOGY METHOD 07/20/2024 3:15 PM [facility] Basophils Relative 1.4 % LAB HEMETOLOGY METHOD 07/20/2024 3:15 PM [facility] Immature Granulocytes Relative 0.1 % LAB HEMETOLOGY METHOD 07/20/2024 3:15 PM [facility] Neutrophils Absolute 4.96 1.50 - 7.00 K/mcL LAB HEMETOLOGY METHOD 07/20/2024 3:15 PM [facility] Lymphocytes Absolute 2.05 1.00 - 5.00 K/mcL LAB HEMETOLOGY METHOD 07/20/2024 3:15 PM [facility] Monocytes Absolute 0.65 0.20 - 1.00 K/mcL LAB HEMETOLOGY METHOD 07/20/2024 3:15 PM EST [facility] Eosinophils Absolute 0.08 0.00 - 0.50 K/[facility] LAB HEMETOLOGY METHOD 07/20/2024 3:15 PM EST [facility] Basophils Absolute 0.11 0.00 - 0.20 K/[facility] LAB HEMETOLOGY METHOD 07/20/2024 3:15 PM EST [facility] Immature Granulocytes Absolute 0.01 0.00 - 0.03 K/[facility] LAB HEMETOLOGY METHOD 07/20/2024 3:15 PM EST [facility] Blood Venous blood specimen / Unknown Venipuncture / Unknown 07/20/2024 2:13 PM EST 07/20/2024 2:59 PM EST Damien Kay MD LAB BLOOD ORDERABLES Final Resul t Performing Organization Address [facility]/ZIP Co de Phone Number [facility] [address] [place] [address], [place] [phone] * (ABNORMAL) B-type natriuretic peptide (07/20/2024 2:13 PM EST) Pathologist [facility] BNP 299(H) <=100 pcg/mL LAB CHEMISTRY METHOD 07/20/2024 4:08 PM EST [facility] Blood Venous blood specimen / Unknown Venipuncture / Unknown 07/20/2024 2:13 PM EST 07/20/2024 2:58 PM EST Damien Kay MD LAB BLOOD ORDERABLES Final Resul t [facility] [address] [place] [address], [place] [phone] * Basic metabolic panel (07/20/2024 2:13 PM EST) Sodium 139 133 - 145 mmol/L LAB CHEMISTRY METHOD 07/20/2024 3:43 PM [facility] Potassium 3.6 3.5 - 5.5 mmol/L LAB CHEMISTRY METHOD 07/20/2024 3:43 PM [facility] Chloride 103 96 - 110 mmol/L LAB CHEMISTRY METHOD 07/20/2024 3:43 PM [facility] CO2 26 21 - 32 mmol/L LAB CHEMISTRY METHOD 07/20/2024 3:43 PM [facility] Anion Gap 10 3 - 11 LAB CHEMISTRY METHOD 07/20/2024 3:43 PM [facility] Glucose 90 70 - 100 mg/dL LAB CHEMISTRY METHOD 07/20/2024 3:43 PM [facility] BUN 10 5 - 25 mg/dL LAB CHEMISTRY METHOD 07/20/2024 3:43 PM [facility] Creatinine 0.83 0.50 - 1.10 mg/dL LAB CHEMISTRY METHOD 07/20/2024 3:43 PM [facility] eGFR 75 >=60 mL/min/1. 73m2 LAB CHEMISTRY METHOD 07/20/2024 3:43 PM [facility] Comment:Calculation based on the Chronic Kidney Disease Epidemiology Collaboration (CKD-EPI) equation refit without adjustment for race. BUN/Creatinine Ratio 12.0 LAB CHEMISTRY METHOD 07/20/2024 3:43 PM [facility] Calcium 9.2 8.5 - 10.5 mg/dL LAB CHEMISTRY METHOD 07/20/2024 3:43 PM [facility] Blood Venous blood specimen / Unknown Venipuncture / Unknown 07/20/2024 2:13 PM EST 07/20/2024 3:00 PM EST us Damien Kay MD LAB BLOOD ORDERABLES Final Resul t [facility] [address] [place] [address], [place] [phone] documented in this encounter Visit Diagnoses Diagnosis Heart failure, unspecified ([facility], [facility] V28) Heart failure, unspecified Sepsis, unspecified organism ([facility] V24, [facility] V28) Hyperlipidemia, unspecified Type 2 diabetes mellitus without complications ([facility] V24, [facility] V28) Other cerebrovascular disease documented in this encounter Care Teams County Home Demonstrator Relationship Specialty Start Date End Date Damien Kay MD [address] [place] [address], [phone] PCP - General Family Medicine 07/05/24 documented as of this encounter
--- OUTSIDE RECORDS SUMMARY | 2025-01-24 09:48 | XMS_ITS | Encounter Summary ---
Author Organization [facility] Address [address] [place] [phone] Care Team Providers Care Geospatial Analyst Name Role Phone Damien Kay MD Primary Care Provider [phone] Encounter Details Date Type Department Care Team (Late st Contact Info) Description 08/16/2024 Lab Requisition [facility] - Main Lab 299 [facility] [place] [address] Damien Kay MD 38 [facility] [address] [place], [phone] Type 2 diabetes mellitus without complications [...] LAB CHEMISTRY METHOD 08/17/2024 1:25 PM EDT [facility] Blood Venous blood specimen / Unknown Venipuncture / Unknown 08/17/2024 8:38 AM EDT 08/17/2024 12:11 PM EDT us Damien Kay MD LAB BLOOD ORDERABLES Final Resul t [facility] [address] [place] [address], [place] [phone] * (ABNORMAL) Complete blood count (08/17/2024 8:38 AM EDT) [facility] WBC 5.7 4.8 - 10.8 K/mcL LAB HEMETOLOGY METHOD 08/17/2024 12:42 PM EDT [facility] RBC 2.50(L) 3.80 - 4.80 M/mcL LAB HEMETOLOGY METHOD 08/17/2024 12:42 PM EDT [facility] Hemoglobin 7.5(L) 11.5 - 16.0 g/dL LAB HEMETOLOGY METHOD 08/17/2024 12:42 PM EDT [facility] Hematocrit 23.9(L) 35.0 - 47.0 % LAB HEMETOLOGY METHOD 08/17/2024 12:42 PM [facility] MCV 96.0 79.0 - 98.0 FL LAB HEMETOLOGY METHOD 08/17/2024 12:42 PM [facility] MCH 30.1 27.0 - 32.0 pcg LAB HEMETOLOGY METHOD 08/17/2024 12:42 PM [facility] MCHC 31.4(L) 32.0 - 37.0 g/dL LAB HEMETOLOGY METHOD 08/17/2024 12:42 PM [facility] RDW 14.9 11.0 - 15.0 % LAB HEMETOLOGY METHOD 08/17/2024 12:42 PM [facility] Platelets 588(H) 130 - 400 K/mcL LAB HEMETOLOGY METHOD 08/17/2024 12:42 PM [facility] MPV 10.5 7.0 - 11.0 FL LAB HEMETOLOGY METHOD 08/17/2024 12:42 PM [facility] NRBC 0.0 <1.0 % LAB HEMETOLOGY METHOD 08/17/2024 12:42 PM [facility] NRBC Absolute 0.00 <0.10 K/mcL LAB HEMETOLOGY METHOD 08/17/2024 12:42 PM [facility] Blood Venous blood specimen / Unknown Venipuncture / Unknown 08/17/2024 8:38 AM EDT 08/17/2024 12:11 PM EDT us Damien Kay MD LAB BLOOD ORDERABLES Final Resul t [facility] [address] [place] [address], [place] [phone] * Lipid panel with reflex to direct LDL (08/17/2024 8:38 AM EDT) [facility] Signature Cholesterol 118 0 - 200 mg/dL LAB CHEMISTRY METHOD 08/17/2024 12:44 PM EDT [facility] Triglycerides 90 0 - 150 mg/dL LAB CHEMISTRY METHOD 08/17/2024 12:44 PM EDT [facility] HDL 54 >=40 mg/dL LAB CHEMISTRY METHOD 08/17/2024 12:44 PM EDT [facility] LDL Calculated 46 0 - 100 mg/dL LAB CHEMISTRY METHOD 08/17/2024 12:44 PM EDT [facility] VLDL Cholesterol Moi 18 mg/dL LAB CHEMISTRY METHOD 08/17/2024 12:44 PM EDT [facility] Non HDL Chol. (LDL+VLDL) 64 <145 mg/dL LAB CHEMISTRY METHOD 08/17/2024 12:44 PM EDT [facility] Chol/HDL Ratio 2.2 0.0 - 4.4 LAB CHEMISTRY METHOD 08/17/2024 12:44 PM EDT [facility] Blood Venous blood specimen / Unknown Venipuncture / Unknown 08/17/2024 8:38 AM EDT 08/17/2024 12:11 PM EDT us Damien Kay MD LAB BLOOD ORDERABLES Final Resul t [facility] [address] [place] [address], * (ABNORMAL) Comprehensive metabolic panel (08/17/2024 8:38 AM EDT) Sodium 139 133 - 145 mmol/L LAB CHEMISTRY METHOD 08/17/2024 12:44 PM EDT [facility] Potassium 4.2 3.5 - 5.5 mmol/L LAB CHEMISTRY METHOD 08/17/2024 12:44 PM EDT [facility] Chloride 107 96 - 110 mmol/L LAB CHEMISTRY METHOD 08/17/2024 12:44 PM EDT [facility] CO2 25 21 - 32 mmol/L LAB CHEMISTRY METHOD 08/17/2024 12:44 PM [facility] Anion Gap 7 3 - 11 LAB CHEMISTRY METHOD 08/17/2024 12:44 PM [facility] Glucose 145(H) 70 - 100 mg/dL LAB CHEMISTRY METHOD 08/17/2024 12:44 PM [facility] BUN 15 5 - 25 mg/dL LAB CHEMISTRY METHOD 08/17/2024 12:44 PM [facility] Creatinine 0.97 0.50 - 1.10 mg/dL LAB CHEMISTRY METHOD 08/17/2024 12:44 PM [facility] eGFR 62 >=60 mL/min/1. 73m2 LAB CHEMISTRY METHOD 08/17/2024 12:44 PM [facility] Comment:Calculation based on the Chronic Kidney Disease Epidemiology Collaboration (CKD-EPI) equation refit without adjustment for race. BUN/Creatinine Ratio 15.5 LAB CHEMISTRY METHOD 08/17/2024 12:44 PM [facility] Calcium 8.5 8.5 - 10.5 mg/dL LAB CHEMISTRY METHOD 08/17/2024 12:44 PM [facility] AST (SGOT) 33 10 - 42 unit/L LAB CHEMISTRY METHOD 08/17/2024 12:44 PM [facility] ALT (SGPT) 30 10 - 60 unit/L LAB CHEMISTRY METHOD 08/17/2024 12:44 PM [facility] Alkaline Phosphatase 63 42 - 121 unit/L LAB CHEMISTRY METHOD 08/17/2024 12:44 PM [facility] Total Protein 5.4(L) 6.0 - 8.0 g/dL LAB CHEMISTRY METHOD 08/17/2024 12:44 PM [facility] Albumin 2.2(L) 3.2 - 5.0 g/dL LAB CHEMISTRY METHOD 08/17/2024 12:44 PM EDT [facility] Total Bilirubin 0.3 0.0 - 1.4 mg/dL LAB CHEMISTRY METHOD 08/17/2024 12:44 PM EDT [facility] Blood Venous blood specimen / Unknown Venipuncture / Unknown 08/17/2024 8:38 AM EDT 08/17/2024 12:11 PM EDT Damien Kay MD LAB BLOOD ORDERABLES Final Resul t [facility] [address] [place] [address], [place] [phone] * Hemoglobin A1c (08/17/2024 8:38 AM EDT) Hemoglobin A1C 4.8 % 08/18/2024 11:23 AM EDT [facility] Mean Bld Glu Estim. 91 mg/dL 08/18/2024 11:23 AM EDT [facility] Blood Venous blood specimen / Unknown Venipuncture / Unknown 08/17/2024 8:38 AM EDT 08/17/2024 12:11 PM EDT us Damien Kay MD LAB BLOOD ORDERABLES Final Resul t Performing Organization Address City/[facility]/ZIP Co de Phone Number [facility] [address] [place] [address], [place] [phone] documented in this encounter Visit Diagnoses Diagnosis Type 2 diabetes mellitus without complications (CMS/HCC V24, CMS/HCC V28) Unspecified atrial fibrillation (CMS/HCC V24, CMS/HCC V28) Anemia, unspecified documented in this encounter Care Teams Geospatial Analyst Relationship Specialty Start Date End Date Damien Kay MD [address] [place] [address] [address] [place], [phone] PCP - General Family Medicine 07/05/24 documented as of this encounter
--- OUTSIDE RECORDS SUMMARY | 2025-01-24 09:48 | XMS_ITS | Encounter Summary ---
Author Organization [facility] Address [address] [place] [phone] Care Team Providers Care Rn Relief Charge Name Role Phone Damien Kay MD Primary Care Provider [phone] Encounter Details Date Type Department Care Team (Late st Contact Info) Description 04/15/[address] [facility] - Main Lab 299 [facility] [place] [address] Damien Kay MD 38 [facility] 204 [place], [phone] Type 2 diabetes mellitus without complications [...] K/mcL LAB HEMETOLOGY METHOD 04/18/2024 8:34 AM [facility] RBC 4.30 3.80 - 4.80 M/mcL LAB HEMETOLOGY METHOD 04/18/2024 8:34 AM [facility] Hemoglobin 11.0(L) 11.5 - 16.0 g/dL LAB HEMETOLOGY METHOD 04/18/2024 8:34 AM [facility] Hematocrit 37.9 35.0 - 47.0 % LAB HEMETOLOGY METHOD 04/18/2024 8:34 AM [facility] MCV 88.1 79.0 - 98.0 FL LAB HEMETOLOGY METHOD 04/18/2024 8:34 AM [facility] MCH 25.6(L) 27.0 - 32.0 pcg LAB HEMETOLOGY METHOD 04/18/2024 8:34 AM [facility] MCHC 29.0(L) 32.0 - 37.0 g/dL LAB HEMETOLOGY METHOD 04/18/2024 8:34 AM [facility] RDW 17.4(H) 11.0 - 15.0 % LAB HEMETOLOGY METHOD 04/18/2024 8:34 AM [facility] Platelets 570(H) 130 - 400 K/mcL LAB HEMETOLOGY METHOD 04/18/2024 8:34 AM [facility] MPV 11.3(H) 7.0 - 11.0 FL LAB HEMETOLOGY METHOD 04/18/2024 8:34 AM [facility] NRBC 0.0 <1.0 % LAB HEMETOLOGY METHOD 04/18/2024 8:34 AM [facility] NRBC Absolute 0.00 <0.10 K/mcL LAB HEMETOLOGY METHOD 04/18/2024 8:34 AM [facility] Neutrophils Relative 77.9 % LAB HEMETOLOGY METHOD 04/18/2024 8:34 AM [facility] Lymphocytes Relative 12.1 % LAB HEMETOLOGY METHOD 04/18/2024 8:34 AM [facility] Monocytes Relative 8.1 % LAB HEMETOLOGY METHOD 04/18/2024 8:34 AM [facility] Eosinophils Relative 1.0 % LAB HEMETOLOGY METHOD 04/18/2024 8:34 AM [facility] Basophils Relative 0.5 % LAB HEMETOLOGY METHOD 04/18/2024 8:34 AM [facility] Immature Granulocytes Relative 0.4 % LAB HEMETOLOGY METHOD 04/18/2024 8:34 AM [facility] Neutrophils Absolute 9.41(H) 1.50 - 7.00 K/mcL LAB HEMETOLOGY METHOD 04/18/2024 8:34 AM [facility] Lymphocytes Absolute 1.46 1.00 - 5.00 K/mcL LAB HEMETOLOGY METHOD 04/18/2024 8:34 AM [facility] Monocytes Absolute 0.98 0.20 - 1.00 K/mcL LAB HEMETOLOGY METHOD 04/18/2024 8:34 AM [facility] Eosinophils Absolute 0.12 0.00 - 0.50 K/mcL LAB HEMETOLOGY METHOD 04/18/2024 8:34 AM [facility] Basophils Absolute 0.06 0.00 - 0.20 K/mcL LAB HEMETOLOGY METHOD 04/18/2024 8:34 AM [facility] Immature Granulocytes Absolute 0.05(H) 0.00 - 0.03 K/mcL LAB HEMETOLOGY METHOD 04/18/2024 8:34 AM [facility] Blood Venous blood specimen / Unknown Venipuncture / Unknown 04/18/2024 5:30 AM EST 04/18/2024 8:08 AM EST us Damien Kay MD LAB BLOOD ORDERABLES Final Resul t [facility] [address] [place] [address], [place] [phone] * (ABNORMAL) Comprehensive metabolic panel (04/18/2024 5:30 AM EST) Sodium 141 133 - 145 mmol/L LAB CHEMISTRY METHOD 04/18/2024 9:07 AM [facility] Potassium 4.4 3.5 - 5.5 mmol/L LAB CHEMISTRY METHOD 04/18/2024 9:07 AM [facility] Chloride 108 96 - 110 mmol/L LAB CHEMISTRY METHOD 04/18/2024 9:07 AM [facility] CO2 25 21 - 32 mmol/L LAB CHEMISTRY METHOD 04/18/2024 9:07 AM [facility] Anion Gap 8 3 - 11 LAB CHEMISTRY METHOD 04/18/2024 9:07 AM [facility] Glucose 126(H) 70 - 100 mg/dL LAB CHEMISTRY METHOD 04/18/2024 9:07 AM [facility] BUN 21 5 - 25 mg/dL LAB CHEMISTRY METHOD 04/18/2024 9:07 AM [facility] Creatinine 1.51(H) 0.50 - 1.10 mg/dL LAB CHEMISTRY METHOD 04/18/2024 9:07 AM [facility] eGFR 37(L) >=60 mL/min/1. 73m2 LAB CHEMISTRY METHOD 04/18/2024 9:07 AM [facility] Comment:Calculation based on the Chronic Kidney Disease Epidemiology Collaboration (CKD-EPI) equation refit without adjustment for race. BUN/Creatinine Ratio 13.9 LAB CHEMISTRY METHOD 04/18/2024 9:07 AM [facility] Calcium 9.8 8.5 - 10.5 mg/dL LAB CHEMISTRY METHOD 04/18/2024 9:07 AM [facility] AST (SGOT) 27 10 - 42 unit/L LAB CHEMISTRY METHOD 04/18/2024 9:07 AM [facility] ALT (SGPT) 24 10 - 60 unit/L LAB CHEMISTRY METHOD 04/18/2024 9:07 AM [facility] Alkaline Phosphatase 76 42 - 121 unit/L LAB CHEMISTRY METHOD 04/18/2024 9:07 AM [facility] Total Protein 7.0 6.0 - 8.0 g/dL LAB CHEMISTRY METHOD 04/18/2024 9:07 AM [facility] Albumin 3.1(L) 3.2 - 5.0 g/dL LAB CHEMISTRY METHOD 04/18/2024 9:07 AM [facility] Total Bilirubin 0.3 0.0 - 1.4 mg/dL LAB CHEMISTRY METHOD 04/18/2024 9:07 AM [facility] Blood Venous blood specimen / Unknown Venipuncture / Unknown 04/18/2024 5:30 AM EST 04/18/2024 8:08 AM EST us Damien Kay MD LAB BLOOD ORDERABLES Final Resul t [facility] [address] [place] [address], documented in this encounter Visit Diagnoses Diagnosis Type 2 diabetes mellitus without complications (CMS/HCC V24, CMS/HCC V28) documented in this encounter Care Teams Rn Relief Charge Relationship Specialty Start Date End Date Damien Kay MD [address] [place] [address], [phone] PCP - General Family Medicine 07/05/24 documented as of this encounter
--- OUTSIDE RECORDS SUMMARY | 2025-01-24 09:48 | XMS_ITS | Encounter Summary ---
Author Organization [facility] Address [address] [place] [phone] Care Team Providers Care Bean Snipper Name Role Phone Damien Kay MD Primary Care Provider [phone] Encounter Details Date Type Department Care Team (Latest Contact Info) Description 07/05/2024 Lab Requisition [facility] - Main Lab 299 [facility] [place] [address] Damien Kay MD 38 [facility] [address] [place], [phone] Heart failure, unspecified (CMS/HCC V24, CMS/HCC [...] auto differential (07/06/2024 7:59 AM EST) Pathologist [facility] WBC 8.6 4.8 - 10.8 K/mcL LAB HEMETOLOGY METHOD 07/06/2024 1:[address] [facility] RBC 3.00(L) 3.80 - 4.80 M/mcL LAB HEMETOLOGY METHOD 07/06/2024 1:[address] [facility] Hemoglobin 8.6(L) 11.5 - 16.0 g/dL LAB HEMETOLOGY METHOD 07/06/2024 1:[address] [facility] Hematocrit 28.3(L) 35.0 - 47.0 % LAB HEMETOLOGY METHOD 07/06/2024 1:[address] [facility] MCV 95.6 79.0 - 98.0 FL LAB HEMETOLOGY METHOD 07/06/2024 1:[address] [facility] MCH 29.1 27.0 - 32.0 pcg LAB HEMETOLOGY METHOD 07/06/2024 1:[address] [facility] MCHC 30.4(L) 32.0 - 37.0 g/dL LAB HEMETOLOGY METHOD 07/06/2024 1:[address] [facility] RDW 24.3(H) 11.0 - 15.0 % LAB HEMETOLOGY METHOD 07/06/2024 1:[address] [facility] Platelets 588(H) 130 - 400 K/mcL LAB HEMETOLOGY METHOD 07/06/2024 1:[address] [facility] MPV 11.2(H) 7.0 - 11.0 FL LAB HEMETOLOGY METHOD 07/06/2024 1:[address] [facility] NRBC 0.0 <1.0 % LAB HEMETOLOGY METHOD 07/06/2024 1:[address] [facility] NRBC Absolute 0.00 <0.10 K/mcL LAB HEMETOLOGY METHOD 07/06/2024 1:[address] [facility] Neutrophils Relative 64.9 % LAB HEMETOLOGY METHOD 07/06/2024 1:[address] [facility] Lymphocytes Relative 21.9 % LAB HEMETOLOGY METHOD 07/06/2024 1:[address] [facility] Monocytes Relative 9.6 % LAB HEMETOLOGY METHOD 07/06/2024 1:[address] [facility] Eosinophils Relative 1.6 % LAB HEMETOLOGY METHOD 07/06/2024 1:[address] [facility] Basophils Relative 1.5 % LAB HEMETOLOGY METHOD 07/06/2024 1:[address] [facility] Immature Granulocytes Relative 0.5 % LAB HEMETOLOGY METHOD 07/06/2024 1:[address] [facility] Neutrophils Absolute 5.61 1.50 - 7.00 K/mcL LAB HEMETOLOGY METHOD 07/06/2024 1:[address] [facility] Lymphocytes Absolute 1.89 1.00 - 5.00 K/mcL LAB HEMETOLOGY METHOD 07/06/2024 1:09 PM EST [facility] Monocytes Absolute 0.83 0.20 - 1.00 K/mcL LAB HEMETOLOGY METHOD 07/06/2024 1:09 PM EST [facility] Eosinophils Absolute 0.14 0.00 - 0.50 K/[facility] LAB HEMETOLOGY METHOD 07/06/2024 1:09 PM EST [facility] Basophils Absolute 0.13 0.00 - 0.20 K/[facility] LAB HEMETOLOGY METHOD 07/06/2024 1:09 PM EST [facility] Immature Granulocytes Absolute 0.04(H) 0.00 - 0.03 K/[facility] LAB HEMETOLOGY METHOD 07/06/2024 1:[address] [facility] Blood Venous blood specimen / Unknown Venipuncture / Unknown 07/06/2024 7:59 AM EST 07/06/2024 11:28 AM EST us Damien Kay MD LAB BLOOD ORDERABLES Final Resul t Performing Organization Address City/[facility]/ZIP Co de Phone Number [facility] [address] [place] [address], * (ABNORMAL) B-type natriuretic peptide (07/06/2024 7:59 AM EST) BNP 567(H) <=100 pcg/mL LAB CHEMISTRY METHOD 07/06/2024 1:01 PM EST [facility] Blood Venous blood specimen / Unknown Venipuncture / Unknown 07/06/2024 7:59 AM EST 07/06/2024 11:28 AM EST Damien Kay MD LAB BLOOD ORDERABLES Final Resul t [facility] [address] [place] [address], [place] [phone] * Basic metabolic panel (07/06/2024 7:59 AM EST) Sodium 144 133 - 145 mmol/L LAB CHEMISTRY METHOD 07/06/2024 12:[address] [facility] Potassium 3.5 3.5 - 5.5 mmol/L LAB CHEMISTRY METHOD 07/06/2024 12:[address] [facility] Chloride 109 96 - 110 mmol/L LAB CHEMISTRY METHOD 07/06/2024 12:[address] [facility] CO2 25 21 - 32 mmol/L LAB CHEMISTRY METHOD 07/06/2024 12:[address] [facility] Anion Gap 10 3 - 11 LAB CHEMISTRY METHOD 07/06/2024 12:[address] [facility] Glucose 82 70 - 100 mg/dL LAB CHEMISTRY METHOD 07/06/2024 12:[address] [facility] BUN 12 5 - 25 mg/dL LAB CHEMISTRY METHOD 07/06/2024 12:[address] [facility] Creatinine 0.77 0.50 - 1.10 mg/dL LAB CHEMISTRY METHOD 07/06/2024 12:[address] [facility] eGFR 82 >=60 mL/min/1. 73m2 LAB CHEMISTRY METHOD 07/06/2024 12:[address] [facility] Comment:Calculation based on the Chronic Kidney Disease Epidemiology Collaboration (CKD-EPI) equation refit without adjustment for race. BUN/Creatinine Ratio 15.6 LAB CHEMISTRY METHOD 07/06/2024 12:[address] [facility] Calcium 9.1 8.5 - 10.5 mg/dL LAB CHEMISTRY METHOD 07/06/2024 12:[address] [facility] Blood Venous blood specimen / Unknown Venipuncture / Unknown 07/06/2024 7:59 AM EST 07/06/2024 11:28 AM EST us Damien Kay MD LAB BLOOD ORDERABLES Final Resul t [facility] [address] [place] [address], * (ABNORMAL) Complete blood count (07/06/2024 7:59 AM EST) WBC 8.6 4.8 - 10.8 K/mcL LAB HEMETOLOGY METHOD 07/06/2024 1:[address] [facility] RBC 3.00(L) 3.80 - 4.80 M/mcL LAB HEMETOLOGY METHOD 07/06/2024 1:[address] [facility] Hemoglobin 8.6(L) 11.5 - 16.0 g/dL LAB HEMETOLOGY METHOD 07/06/2024 1:[address] [facility] Hematocrit 28.3(L) 35.0 - 47.0 % LAB HEMETOLOGY METHOD 07/06/2024 1:[address] [facility] MCV 95.6 79.0 - 98.0 FL LAB HEMETOLOGY METHOD 07/06/2024 1:[address] [facility] MCH 29.1 27.0 - 32.0 pcg LAB HEMETOLOGY METHOD 07/06/2024 1:[address] [facility] MCHC 30.4(L) 32.0 - 37.0 g/dL LAB HEMETOLOGY METHOD 07/06/2024 1:[address] [facility] RDW 24.3(H) 11.0 - 15.0 % LAB HEMETOLOGY METHOD 07/06/2024 1:[address] [facility] Platelets 588(H) 130 - 400 K/mcL LAB HEMETOLOGY METHOD 07/06/2024 1:[address] [facility] MPV 11.2(H) 7.0 - 11.0 FL LAB HEMETOLOGY METHOD 07/06/2024 1:09 PM EST [facility] NRBC 0.0 <1.0 % LAB HEMETOLOGY METHOD 07/06/2024 1:09 PM EST [facility] NRBC Absolute 0.00 <0.10 K/mcL LAB HEMETOLOGY METHOD 07/06/2024 1:09 PM EST [facility] Blood Venous blood specimen / Unknown Venipuncture / Unknown 07/06/2024 7:59 AM EST 07/06/2024 11:28 AM EST us Damien Kay MD LAB BLOOD ORDERABLES Final Resul t [facility] [address] [place] [address], documented in this encounter Visit Diagnoses Diagnosis Heart failure, unspecified (CMS/HCC V24, CMS/HCC V28) Heart failure, unspecified Sepsis, unspecified organism (CMS/HCC V24, CMS/HCC V28) Hyperlipidemia, unspecified Type 2 diabetes mellitus without complications (CMS/HCC V24, CMS/HCC V28) Other cerebrovascular disease documented in this encounter Care Teams Bean Snipper Relationship Specialty Start Date End Date Damien Kay MD [address] [place] [address], [phone] PCP - General Family Medicine 07/05/24 documented as of this encounter
--- OUTSIDE RECORDS SUMMARY | 2025-01-24 09:48 | XMS_ITS | Encounter Summary ---
Author Organization [facility] Address [address] [place] [phone] Care Team Providers Care Event Marketing Intern Name Role Phone Damien Kay MD Primary Care Provider [phone] Encounter Details Date Type Department Care Team (Late st Contact Info) Description 09/08/[address] [facility] [address] [place] [address] Damien Kay MD 38 [facility] 204 [place], [phone] Type 2 diabetes mellitus without complications [...] AM EDT) WBC 7.2 4.8 - 10.8 K/[facility] LAB HEMETOLOGY METHOD 09/08/2024 10:44 AM EDT [facility] RBC 2.30(L) 3.80 - 4.80 M/mcL LAB HEMETOLOGY METHOD 09/08/2024 10:44 AM [facility] Hemoglobin 6.5(L) 11.5 - 16.0 g/dL LAB HEMETOLOGY METHOD 09/08/2024 10:44 AM [facility] Hematocrit 21.5(L) 35.0 - 47.0 % LAB HEMETOLOGY METHOD 09/08/2024 10:44 AM [facility] MCV 95.6 79.0 - 98.0 FL LAB HEMETOLOGY METHOD 09/08/2024 10:44 AM [facility] MCH 28.9 27.0 - 32.0 pcg LAB HEMETOLOGY METHOD 09/08/2024 10:44 AM [facility] MCHC 30.2(L) 32.0 - 37.0 g/dL LAB HEMETOLOGY METHOD 09/08/2024 10:44 AM [facility] RDW 16.6(H) 11.0 - 15.0 % LAB HEMETOLOGY METHOD 09/08/2024 10:44 AM [facility] Platelets 474(H) 130 - 400 K/mcL LAB HEMETOLOGY METHOD 09/08/2024 10:44 AM [facility] MPV 10.9 7.0 - 11.0 FL LAB HEMETOLOGY METHOD 09/08/2024 10:44 AM [facility] NRBC 0.0 <1.0 % LAB HEMETOLOGY METHOD 09/08/2024 10:44 AM [facility] NRBC Absolute 0.00 <0.10 K/mcL LAB HEMETOLOGY METHOD 09/08/2024 10:44 AM [facility] Blood Venous blood specimen / Unknown Venipuncture / Unknown 09/08/2024 5:31 AM EDT 09/08/2024 10:13 AM EDT us Damien Kay MD LAB BLOOD ORDERABLES Final Resul t [facility] [address] [place] [address], documented in this encounter Visit Diagnoses Diagnosis Type 2 diabetes mellitus without complications (CMS/HCC V24, CMS/HCC V28) Anemia, unspecified Hyperkalemia Hyperpotassemia documented in this encounter Care Teams Event Marketing Intern Relationship Specialty Start Date End Date Damien Kay MD [address] [place] [address] [address], [phone] PCP - General Family Medicine 07/05/24 documented as of this encounter
--- OUTSIDE RECORDS SUMMARY | 2025-01-24 09:48 | XMS_ITS | Encounter Summary ---
Author Organization [facility] Address [address] [place] [phone] Care Team Providers Care Supervisor Composing Room Name Role Phone Damien Kay MD Primary Care Provider [phone] Encounter Details Date Type Department Care Team (Late st Contact Info) Description 05/10/2024 Lab Requisition [facility] - Main Lab 299 [facility] [employer] [place] [address] Damien Kay MD 38 [facility] [address] [place], [phone] Unspecified atrial fibrillation (CMS/HCC V24, CMS/HCC [...] mmol/L LAB CHEMISTRY METHOD 05/12/2024 11:29 AM [facility] Potassium 3.5 3.5 - 5.5 mmol/L LAB CHEMISTRY METHOD 05/12/2024 11:29 AM [facility] Chloride 101 96 - 110 mmol/L LAB CHEMISTRY METHOD 05/12/2024 11:29 AM [facility] CO2 27 21 - 32 mmol/L LAB CHEMISTRY METHOD 05/12/2024 11:29 AM [facility] Anion Gap 9 3 - 11 LAB CHEMISTRY METHOD 05/12/2024 11:29 AM [facility] Glucose 103(H) 70 - 100 mg/dL LAB CHEMISTRY METHOD 05/12/2024 11:29 AM [facility] BUN 37(H) 5 - 25 mg/dL LAB CHEMISTRY METHOD 05/12/2024 11:29 AM [facility] Creatinine 1.70(H) 0.50 - 1.10 mg/dL LAB CHEMISTRY METHOD 05/12/2024 11:29 AM [facility] eGFR 32(L) >=60 mL/min/1. 73m2 LAB CHEMISTRY METHOD 05/12/2024 11:29 AM [facility] Comment:Calculation based on the Chronic Kidney Disease Epidemiology Collaboration (CKD-EPI) equation refit without adjustment for race. BUN/Creatinine Ratio 21.8 LAB CHEMISTRY METHOD 05/12/2024 11:29 AM [facility] Calcium 9.0 8.5 - 10.5 mg/dL LAB CHEMISTRY METHOD 05/12/2024 11:29 AM [facility] Blood Venous blood specimen / Unknown Venipuncture / Unknown 05/12/2024 7:30 AM EST 05/12/2024 10:49 AM EST us Damien Kay MD LAB BLOOD ORDERABLES Final Resul t [facility] [address] [place] [address], * (ABNORMAL) Complete blood count (05/12/2024 7:30 AM EST) WBC 11.4(H) 4.8 - 10.8 K/mcL LAB HEMETOLOGY METHOD 05/12/2024 11:01 AM [facility] RBC 3.60(L) 3.80 - 4.80 M/mcL LAB HEMETOLOGY METHOD 05/12/2024 11:01 AM [facility] Hemoglobin 9.1(L) 11.5 - 16.0 g/dL LAB HEMETOLOGY METHOD 05/12/2024 11:01 AM [facility] Hematocrit 29.9(L) 35.0 - 47.0 % LAB HEMETOLOGY METHOD 05/12/2024 11:01 AM [facility] MCV 84.0 79.0 - 98.0 FL LAB HEMETOLOGY METHOD 05/12/2024 11:01 AM [facility] MCH 25.6(L) 27.0 - 32.0 pcg LAB HEMETOLOGY METHOD 05/12/2024 11:01 AM [facility] MCHC 30.4(L) 32.0 - 37.0 g/dL LAB HEMETOLOGY METHOD 05/12/2024 11:01 AM [facility] RDW 18.9(H) 11.0 - 15.0 % LAB HEMETOLOGY METHOD 05/12/2024 11:01 AM [facility] Platelets 690(H) 130 - 400 K/mcL LAB HEMETOLOGY METHOD 05/12/2024 11:01 AM [facility] MPV 10.2 7.0 - 11.0 FL LAB HEMETOLOGY METHOD 05/12/2024 11:01 AM EST [facility] NRBC 0.0 <1.0 % LAB HEMETOLOGY METHOD 05/12/2024 11:01 AM EST [facility] NRBC Absolute 0.00 <0.10 K/mcL LAB HEMETOLOGY METHOD 05/12/2024 11:01 AM EST [facility] Blood Venous blood specimen / Unknown Venipuncture / Unknown 05/12/2024 7:30 AM EST 05/12/2024 10:49 AM EST us Damien Kay MD LAB BLOOD ORDERABLES Final Resul t [facility] 299 [place] [address], documented in this encounter Visit Diagnoses Diagnosis Unspecified atrial fibrillation (CMS/HCC V24, CMS/HCC V28) Type 2 diabetes mellitus without complications (CMS/HCC V24, CMS/HCC V28) Heart failure, unspecified (CMS/HCC V24, CMS/HCC V28) Heart failure, unspecified documented in this encounter Care Teams Supervisor Composing Room Relationship Specialty Start Date End Date Damien Kay MD [address] [place] [address], [phone] PCP - General Family Medicine 07/05/24 documented as of this encounter
--- OUTSIDE RECORDS SUMMARY | 2025-01-24 09:48 | XMS_ITS | Encounter Summary ---
Author Organization [facility] Address [address] [place] [phone] Care Team Providers Care Iron Caster Name Role Phone Damien Kay MD Primary Care Provider [phone] Encounter Details Date Type Department Care Team (Late st Contact Info) Description 08/23/2024 Lab Requisition [facility] - Main Lab 299 [facility] [place] [address] Damien Kay MD 38 [facility] [address] [place], [phone] Heart failure, unspecified (CMS/HCC V24, CMS/HCC [...] natriuretic peptide (08/24/2024 6:47 AM EDT) Pathologist [facility] BNP 1,090(H) <=100 pcg/mL LAB CHEMISTRY METHOD 08/24/2024 2:06 PM EDT [facility] Blood Venous blood specimen / Unknown Venipuncture / Unknown 08/24/2024 6:47 AM EDT 08/24/2024 12:06 PM EDT us Damien Kay MD LAB BLOOD ORDERABLES Final Resul t [facility] 299 [place] [address], [place] [phone] * Basic metabolic panel (08/24/2024 6:47 AM EDT) [facility] Sodium 143 133 - 145 mmol/L LAB [...] LAB CHEMISTRY METHOD 08/24/2024 12:32 PM EDT [facility] eGFR 66 >=60 mL/min/1. 73m2 LAB CHEMISTRY METHOD 08/24/2024 12:32 PM EDT [facility] Comment:Calculation based on the Chronic Kidney Disease Epidemiology Collaboration (CKD-EPI) equation refit without adjustment for race. BUN/Creatinine Ratio 15.2 LAB CHEMISTRY METHOD 08/24/2024 12:32 PM EDT [facility] Calcium 9.1 8.5 - 10.5 mg/dL LAB CHEMISTRY METHOD [facility] Blood Venous blood specimen / Unknown Venipuncture / Unknown 08/24/2024 6:47 AM EDT 08/24/2024 11:13 AM EDT us Damien Kay MD LAB BLOOD ORDERABLES Final Resul t [facility] [address] [place] [address], [place] [phone] * (ABNORMAL) Complete blood count (08/24/2024 6:47 AM EDT) WBC 6.7 4.8 - 10.8 K/mcL LAB HEMETOLOGY METHOD 08/24/2024 11:43 AM T [facility] RBC 2.50(L) 3.80 - 4.80 M/mcL LAB HEMETOLOGY METHOD 08/24/2024 11:43 AM EDT [facility] Hemoglobin 7.4(L) 11.5 - 16.0 g/dL LAB HEMETOLOGY METHOD 08/24/2024 11:[address] [facility] Hematocrit 23.4(L) 35.0 - 47.0 % LAB HEMETOLOGY METHOD 08/24/2024 11:43 AM EDT [facility] MCV 92.9 79.0 - 98.0 FL LAB HEMETOLOGY METHOD 08/24/2024 11:43 AM EDT [facility] MCH 29.4 27.0 - 32.0 pcg LAB HEMETOLOGY METHOD 08/24/2024 11:43 AM EDT [facility] MCHC 31.6(L) 32.0 - 37.0 g/dL LAB HEMETOLOGY METHOD 08/24/2024 11:43 AM EDT [facility] RDW 14.6 11.0 - 15.0 % LAB HEMETOLOGY METHOD 08/24/2024 11:43 AM T [facility] Platelets 604(H) 130 - 400 K/mcL LAB HEMETOLOGY METHOD 08/24/2024 11:43 AM EDT [facility] MPV 10.1 7.0 - 11.0 FL LAB HEMETOLOGY METHOD 08/24/2024 11:43 AM EDT [facility] NRBC 0.0 <1.0 % LAB HEMETOLOGY METHOD 08/24/2024 11:[address] [facility] NRBC Absolute 0.00 <0.10 K/mcL LAB HEMETOLOGY METHOD 08/24/2024 11:[address] [facility] Blood Venous blood specimen / Unknown Venipuncture / Unknown 08/24/2024 6:47 AM EDT 08/24/2024 11:08 AM EDT us Damien Kay MD LAB BLOOD ORDERABLES Final Resul t [facility] [address] [place] [address], documented in this encounter Visit Diagnoses Diagnosis Heart failure, unspecified (CMS/HCC V24, CMS/[facility] V28) Heart failure, unspecified Sepsis, unspecified organism (CMS/HCC V24, CMS/[facility] V28) Hyperlipidemia, unspecified documented in this encounter Care Teams Iron Caster Relationship Specialty Start Date End Date Damien Kay MD [address] [place] [address], [phone] PCP - General Family Medicine 07/05/24 documented as of this encounter
--- OUTSIDE RECORDS SUMMARY | 2025-01-24 09:48 | XMS_ITS | Encounter Summary ---
Author Organization [facility] Address [address] [place] [phone] Care Team Providers Care Senior Project Leader/Team Lead Name Role Phone Damien Kay MD Primary Care Provider [phone] Encounter Details Date Type Department Care Team (Late st Contact Info) Description 04/22/[address] [facility] - Main Lab 299 [facility] [place] [address] Damien Kay MD 38 [facility] 204 [place], [phone] Unspecified atrial fibrillation (CMS/HCC V24, CMS/HCC [...] (CMS/HCC) Type 2 diabetes mellitus without complications ([facility]/HCC) documented in this encounter Results * (ABNORMAL) Comprehensive metabolic panel (04/22/2024 8:06 AM EST) Sodium 135 133 - 145 mmol/L LAB CHEMISTRY METHOD 04/22/2024 12:10 PM [facility] Potassium 6.7(HH) 3.5 - 5.5 mmol/L LAB CHEMISTRY METHOD 04/22/2024 12:10 PM [facility] Chloride 102 96 - 110 mmol/L LAB CHEMISTRY METHOD 04/22/2024 12:10 PM [facility] CO2 23 21 - 32 mmol/L LAB CHEMISTRY METHOD 04/22/2024 12:10 PM [facility] Anion Gap 10 3 - 11 LAB CHEMISTRY METHOD 04/22/2024 12:10 PM [facility] Glucose 174(H) 70 - 100 mg/dL LAB CHEMISTRY METHOD 04/22/2024 12:10 PM [facility] BUN 37(H) 5 - 25 mg/dL LAB CHEMISTRY METHOD 04/22/2024 12:10 PM [facility] Creatinine 1.99(H) 0.50 - 1.10 mg/dL LAB CHEMISTRY METHOD 04/22/2024 12:10 PM [facility] eGFR 26(L) >=60 mL/min/1. 73m2 LAB CHEMISTRY METHOD 04/22/2024 12:10 PM [facility] Comment:Calculation based on the Chronic Kidney Disease Epidemiology Collaboration (CKD-EPI) equation refit without adjustment for race. BUN/Creatinine Ratio 18.6 LAB CHEMISTRY METHOD 04/22/2024 12:10 PM [facility] Calcium 10.8(H) 8.5 - 10.5 mg/dL LAB CHEMISTRY METHOD 04/22/2024 12:10 PM [facility] AST (SGOT) 29 10 - 42 unit/L LAB CHEMISTRY METHOD 04/22/2024 12:10 PM [facility] ALT (SGPT) 23 10 - 60 unit/L LAB CHEMISTRY METHOD 04/22/2024 12:10 PM [facility] Alkaline Phosphatase 75 42 - 121 unit/L LAB CHEMISTRY METHOD 04/22/2024 12:10 PM [facility] Total Protein 7.2 6.0 - 8.0 g/dL LAB CHEMISTRY METHOD 04/22/2024 12:10 PM [facility] Albumin 3.3 3.2 - 5.0 g/dL LAB CHEMISTRY METHOD 04/22/2024 12:10 PM [facility] Total Bilirubin 0.3 0.0 - 1.4 mg/dL LAB CHEMISTRY METHOD 04/22/2024 12:10 PM [facility] Blood Venous blood specimen / Unknown Venipuncture / Unknown 04/22/2024 8:06 AM EST 04/22/2024 10:44 AM EST us Damien Kay MD LAB BLOOD ORDERABLES Final Resul t [facility] 299 [place] [address], [place] [phone] * (ABNORMAL) Complete blood count (04/22/2024 8:06 AM EST) WBC 18.6(H) 4.8 - 10.8 K/mcL LAB HEMETOLOGY METHOD 04/22/2024 11:34 AM [facility] RBC 4.30 3.80 - 4.80 M/mcL LAB HEMETOLOGY METHOD 04/22/2024 11:34 AM [facility] Hemoglobin 11.0(L) 11.5 - 16.0 g/dL LAB HEMETOLOGY METHOD 04/22/2024 11:34 AM [facility] Hematocrit 37.3 35.0 - 47.0 % LAB HEMETOLOGY METHOD 04/22/2024 11:34 AM [facility] MCV 87.4 79.0 - 98.0 FL LAB HEMETOLOGY METHOD 04/22/2024 11:34 AM [facility] MCH 25.8(L) 27.0 - 32.0 pcg LAB HEMETOLOGY METHOD 04/22/2024 11:34 AM [facility] MCHC 29.5(L) 32.0 - 37.0 g/dL LAB HEMETOLOGY METHOD 04/22/2024 11:34 AM [facility] RDW 18.0(H) 11.0 - 15.0 % LAB HEMETOLOGY METHOD 04/22/2024 11:34 AM [facility] Platelets 600(H) 130 - 400 K/mcL LAB HEMETOLOGY METHOD 04/22/2024 11:34 AM [facility] MPV 11.7(H) 7.0 - 11.0 FL LAB HEMETOLOGY METHOD 04/22/2024 11:34 AM [facility] NRBC 0.0 <1.0 % LAB HEMETOLOGY METHOD 04/22/2024 11:34 AM [facility] NRBC Absolute 0.00 <0.10 K/mcL LAB HEMETOLOGY METHOD 04/22/2024 11:34 AM [facility] Blood Venous blood specimen / Unknown Venipuncture / Unknown 04/22/2024 8:06 AM EST 04/22/2024 10:44 AM EST us Damien Kay MD LAB BLOOD ORDERABLES Final Resul t [facility] [address] [place] [address], documented in this encounter Visit Diagnoses Diagnosis Unspecified atrial fibrillation (CMS/HCC V24, CMS/HCC V28) Sepsis, unspecified organism ([facility] V24, [facility] V28) Heart failure, unspecified ([facility] V24, [facility] V28) Heart failure, unspecified Type 2 diabetes mellitus without complications ([facility] V24, [facility] V28) documented in this encounter Care Teams Senior Project Leader/Team Lead Relationship Specialty Start Date End Date Damien Kay MD [address] [place] [address], [phone] PCP - General Family Medicine 07/05/24 documented as of this encounter
--- OUTSIDE RECORDS SUMMARY | 2025-01-24 09:48 | XMS_ITS | Encounter Summary ---
Author Organization [facility] Address [address] [place] [phone] Care Team Providers Care Risk Developer Name Role Phone Damien Kay MD Primary Care Provider [phone] Encounter Details Date Type Department Care Team (Late st Contact Info) Description 08/15/2024 Lab Requisition [facility] - Main Lab 299 [facility] [place] [address] Damien Kay MD [address] [place] [address] 204 [facility] [phone] Type 2 diabetes mellitus without complications [...] unspecified documented in this encounter Care Teams Risk Developer Relationship Specialty Start Date End Date Damien Kay MD [address] [place] [address] 204 [place], [phone] PCP - General Family Medicine 07/05/24 documented as of this encounter
--- OUTSIDE RECORDS SUMMARY | 2025-01-24 09:48 | XMS_ITS | Encounter Summary ---
Author Organization [facility] Address [address] [place] [phone] Care Team Providers Care Principal Clerk Typist Name Role Phone Damien Kay MD Primary Care Provider [phone] Encounter Details Date Type Department Care Team (Late st Contact Info) Description 05/24/2024 Lab Requisition [facility] - Main Lab 299 [facility] [place] [address] Damien Kay MD 38 [facility] 204 [place], [phone] Unspecified atrial fibrillation (CMS/HCC V24, CMS/HCC [...] mmol/L LAB CHEMISTRY METHOD 05/25/2024 11:53 AM [facility] Potassium 4.2 3.5 - 5.5 mmol/L LAB CHEMISTRY METHOD 05/25/2024 11:53 AM [facility] Chloride 106 96 - 110 mmol/L LAB CHEMISTRY METHOD 05/25/2024 11:53 AM [facility] CO2 26 21 - 32 mmol/L LAB CHEMISTRY METHOD 05/25/2024 11:53 AM [facility] Anion Gap 7 3 - 11 LAB CHEMISTRY METHOD 05/25/2024 11:53 AM [facility] Glucose 89 70 - 100 mg/dL LAB CHEMISTRY METHOD 05/25/2024 11:53 AM [facility] BUN 43(H) 5 - 25 mg/dL LAB CHEMISTRY METHOD 05/25/2024 11:53 AM [facility] Creatinine 2.17(H) 0.50 - 1.10 mg/dL LAB CHEMISTRY METHOD 05/25/2024 11:53 AM [facility] eGFR 24(L) >=60 mL/min/1. 73m2 LAB CHEMISTRY METHOD 05/25/2024 11:53 AM [facility] Comment:Calculation based on the Chronic Kidney Disease Epidemiology Collaboration (CKD-EPI) equation refit without adjustment for race. BUN/Creatinine Ratio 19.8 LAB CHEMISTRY METHOD 05/25/2024 11:53 AM [facility] Calcium 8.5 8.5 - 10.5 mg/dL LAB CHEMISTRY METHOD 05/25/2024 11:53 AM [facility] Blood Venous blood specimen / Unknown Venipuncture / Unknown 05/25/2024 6:42 AM EST 05/25/2024 10:15 AM EST Damien Kay MD LAB BLOOD ORDERABLES Final Resul t [facility] [address] [place] [address], * (ABNORMAL) Complete blood count (05/25/2024 6:42 AM EST) WBC 9.5 4.8 - 10.8 K/mcL LAB HEMETOLOGY METHOD 05/25/2024 11:22 AM [facility] RBC 3.70(L) 3.80 - 4.80 M/mcL LAB HEMETOLOGY METHOD 05/25/2024 11:22 AM [facility] Hemoglobin 9.3(L) 11.5 - 16.0 g/dL LAB HEMETOLOGY METHOD 05/25/2024 11:22 AM [facility] Hematocrit 30.7(L) 35.0 - 47.0 % LAB HEMETOLOGY METHOD 05/25/2024 11:22 AM [facility] MCV 84.1 79.0 - 98.0 FL LAB HEMETOLOGY METHOD 05/25/2024 11:22 AM [facility] MCH 25.5(L) 27.0 - 32.0 pcg LAB HEMETOLOGY METHOD 05/25/2024 11:22 AM [facility] MCHC 30.3(L) 32.0 - 37.0 g/dL LAB HEMETOLOGY METHOD 05/25/2024 11:22 AM [facility] RDW 19.8(H) 11.0 - 15.0 % LAB HEMETOLOGY METHOD 05/25/2024 11:22 AM [facility] Platelets 496(H) 130 - 400 K/mcL LAB HEMETOLOGY METHOD 05/25/2024 11:22 AM [facility] MPV 11.2(H) 7.0 - 11.0 FL LAB HEMETOLOGY METHOD 05/25/2024 11:22 AM EST [facility] NRBC 0.0 <1.0 % LAB HEMETOLOGY METHOD 05/25/2024 11:22 AM EST [facility] NRBC Absolute 0.00 <0.10 K/mcL LAB HEMETOLOGY METHOD 05/25/2024 11:22 AM EST [facility] Blood Venous blood specimen / Unknown Venipuncture / Unknown 05/25/2024 6:42 AM EST 05/25/2024 10:15 AM EST us Damien Kay MD LAB BLOOD ORDERABLES Final Resul t [facility] [address] [place] [address], documented in this encounter Visit Diagnoses Diagnosis Unspecified atrial fibrillation (CMS/HCC V24, CMS/HCC V28) Type 2 diabetes mellitus without complications (CMS/HCC V24, CMS/HCC V28) Heart failure, unspecified (CMS/HCC V24, CMS/HCC V28) Heart failure, unspecified documented in this encounter Care Teams Principal Clerk Typist Relationship Specialty Start Date End Date Damien Kay MD [address] [place] [address], [phone] PCP - General Family Medicine 07/05/24 documented as of this encounter
--- OUTSIDE RECORDS SUMMARY | 2025-01-24 09:48 | XMS_ITS | Encounter Summary ---
Author Organization [facility] Address [address] [place] [phone] Care Team Providers Care Printing Table Worker Name Role Phone Damien Kay MD Primary Care Provider [phone] Encounter Details Date Type Department Care Team (Late st Contact Info) Description 04/23/2024 Lab Requisition [facility] - Main Lab 299 [facility] [place] [address] Damien Kay MD [address] [place] [address] 204 [facility] [phone] Type 2 diabetes mellitus without complications [...] V28) documented in this encounter Care Teams Printing Table Worker Relationship Specialty Start Date End Date Damien Kay MD [address] [place] [address] 204 [place], [phone] PCP - General Family Medicine 07/05/24 documented as of this encounter
== END 2025-01-24 09:25 | disposition home or self-care (01) ==
LOC: HO.HCS 08:40
PROVIDERS: PCP Family Medicine; Visit Provider Nurse Practitioner Family
DX: D50.0 Iron deficiency anemia secondary to blood loss (chronic) (principal); I48.0 Paroxysmal atrial fibrillation; I42.9 Cardiomyopathy, unspecified
CPT/HCPCS: 93010; 99214; G2211

== ENCOUNTER → 2025-01-24 08:40 | Outpatient (BNVA) | payer MEDICARE, MEDICAID, SELFPAY | PROVIDERS: PCP Family Medicine; Visit Provider Nurse Practitioner Family | DX: D50.0 Iron deficiency anemia secondary to blood loss (chronic) (principal); I48.0 Paroxysmal atrial fibrillation; I42.9 Cardiomyopathy, unspecified; Z79.82 Long term (current) use of aspirin; Z87.891 Personal history of nicotine dependence | CPT/HCPCS: 93005; 99212 ==